=== PATIENT | female | born 1970 | race Caucasian/White ===

== ENCOUNTER 2022-06-19 21:19 | Emergency (ER) | payer OTHER, SELFPAY ==
--- NOTE | ~2022-06-19 | CT_ITS ---
Non-contrast Head CT History: Status post fall Technique: Axial non-contrast imaging of the brain was performed. Dose reduction technique was used on this scan by utilizing automated exposure control and iterative reconstruction technique. The dose -length product (DLP) was 605.33 mGy-cm. Findings: There is no evidence of intracranial hemorrhage, mass lesion, or acute infarct. Brain par enchyma appears normal. The ventricles and subarachnoid spaces are normal in size. The calvarium ap pears normal. The visualized paranasal sinuses and mastoid air cells are clear. Impression: No significant abnormality seen. Reviewed, dictated and finalized at location . Impression: No significant abnormality seen.
--- NOTE | ~2022-06-19 | CT_ITS ---
Noncontrast CT scan of the cervical spine Technique: Multiple contiguous axial [address] images of the cervical spine were obtained and rec onstructed in 2D sagittal and coronal planes on the acquisition scanner. Dose reduction technique was used on this scan by utilizing automated exposure control, adjustment of the mA and/or kV according to patient size. Clinical History: Pain Findings: No fractures or dislocations. There is moderate degenerative disc narrowing at C5-C6. No p revertebral soft tissue swelling. Impression: No fracture or subluxation of the cervical spine. Moderate degenerative disc narrowing at C5-C6. Reviewed, dictated and finalized at location . Impression: No fracture or subluxation of the cervical spine. Moderate degenerative disc narrowing at C5-C6.
[2022-06-19 21:23] VITALS: BP 116/78; PULSE 76; RESP 16; TEMP 36.3; O2SAT 95
--- NOTE | 2022-06-19 21:29 | ECG_ITS ---
Measurements Intervals [place] Rate: 70 P: 25 [place]: 159 QRS: 47 QRSD: 134 T: 13 QT: 402 QTc: 435 Interpretive Statements SINUS RHYTHM INTRAVENTRICULAR CONDUCTION DELAY [130+ ms QRS DURATION] ABNORMAL ECG NO PREVIOUS ECG AVAILABLE FOR COMPARISON Electronically Signed On 06-20-2022 10:36:48 CDT by Homer Valles M.D.
[2022-06-19 21:55] LABS: Basophils Percent Auto 0.3 % (0.2-1.2); Eosinophils Absolute Auto 0.1 K/mm3 (0-0.3); Eosinophils Percent Auto 1.2 % (0-4.4); Hematocrit 41.4 % (37.0-47.0); Hemoglobin 13.7 g/dL (12.0-15.0); Immature Granulocyte Absolute 0.06 K/mm3 (0.00-0.031); Immature Granulocyte Percent A 0.5 % (0-0.5); Lymphocytes Absolute Auto 1.73 K/mm3 (0.9-3.2); Lymphocytes Percent Auto 14.5 % (18.3-44.2); Mean Corpuscular HGB Conc 33.1 g/dl (32-36); Mean Corpuscular Hemoglobin 29.5 pg (26-34); Mean Platelet Volume 11.2 fl (7.4-10.4); Monocytes Absolute Auto 0.7 K/mm3 (0.1-0.6); Monocytes Percent Auto 5.7 % (2.6-8.5); Neutrophils Absolute Auto 9.3 K/mm3 (1.3-6.7); Neutrophils Percent Auto 77.8 % (45.5-73.1); Platelet Count Result 211 k/mm3 (150-375); Red Blood Count 4.65 M/mm3 (4.2-5.4); Red Cell Distribution Width 14.3 % (11.5-14.5)
[2022-06-19 22:04] LABS: Alanine Aminotransferase 26 U/L (6-35); Albumin Level 4.3 g/dL (3.5-5.1); Alkaline Phosphatase 112 U/L (38-126); Anion Gap 6 mmol/L (8-16); Aspartate Amino Transferase 36 U/L (14-36); Bilirubin,Total 0.4 mg/dL (0.2-1.3); Blood Urea Nitrogen 8 mg/dL (7-17); Calcium 8.9 mg/dL (8.4-10.2); Carbon Dioxide 28 mmol/L (22-30); Chloride 103 mmol/L (98-107); Estimated CRCL calculation 77 ml/min; Estimated Glomerular Filt Rate > 60; Glucose 109 mg/dL (65-110); Potassium 3.9 mmol/L (3.4-5.0); Sodium 137 mmol/L (137-145)
[2022-06-19 22:30] VITALS: BP 90/76
[2022-06-19] MEDS: PROCHLORPERAZINE EDISYLATE 10 MG/2 ML VIAL IV PUSH (22:38)
[2022-06-19] MEDS: ACETAMINOPHEN 500 MG TABLET 1000 MG PO (22:40)
[2022-06-19] MEDS: diphenhydrAMINE HCl INJ 50 MG/ML VIAL 25 MG IV PUSH (22:40)
[2022-06-19] MEDS: SODIUM CHLORIDE 0.9% IV 2,000 ML 999 ML IV CONT (22:40)
[2022-06-19] MEDS: ONDANSETRON INJ 4 MG/2 ML VIAL IV PUSH (22:40)
--- NOTE | 2022-06-19 22:43 | ED.GENADULT ---
HPI - General Adult General Chief complaint: Head Injury Stated complaint: head injury Time Seen by Provider: 06/19/22 21:35 History of Present Illness HPI narrative: This is a 52-year-old female presenting ED with chief complaint of syncope. Patient says that she had been laying down watching TV. She then got up and felt lightheaded. She leaned against the wall and then remembers waking up on the floor. Since then the patient has had a headache. She has had multiple episodes of nausea and vomiting. She denies numbness tingling or weakness to any extremities. Patient told her friend that this felt similar to when she got a steroid shot in the past and then felt lightheaded and dizzy. Related Data Allergies Allergy/AdvReac Type Severity Reaction Status Date / Time levofloxacin [From Levaquin] Allergy Unknown Verified 06/19/22 21:21 morphine AdvReac Unknown makes her Verified 06/19/22 21:21 feel weird tetracycline AdvReac Unknown stomach Verified 06/19/22 21:21 pains PMFSH Past Medical History Medical History Anxiety Chronic pain Depression GERD (gastroesophageal reflux disease) HTN (hypertension) Social History Social History Social History: Patient has occasional alcohol use, daily marijuana use and has access to gabapentin and norco at home Exam Narrative: APPEARANCE: No apparent distress. Head: 2 cm laceration to the back of the scalp EYES: EOMI, pupils are 2 mm and reactive NOSE: Atraumatic NECK: Trachea midline RESPIRATORY: No increased rate of breathing CARDIOVASCULAR: RRR, ABDOMINAL: Non-distended MUSCULOSKELETAl: No obvious deformities NEURO: Alert. Cranial nerves 2-12 grossly intact. Sensation light touch, motor function cerebellar function intact for 4 extremities. Gait exam was normal. SKIN:: Warm, dry. Normal color PSYCHIATRIC: Normal affect Course Vital Signs Vital signs: Vital Signs Temperature 97.3 F L 06/19/22 21:23 Pulse Rate 76 06/19/22 21:23 Respiratory Rate 16 06/19/22 21:23 Blood Pressure 116/78 06/19/22 21:23 Pulse Oximetry 95 06/19/22 21:23 Oxygen Delivery Room Air 06/19/22 21:23 Temperature 97.3 F L 06/19/22 21:23 Pulse Rate 61 06/19/22 23:39 Respiratory Rate 13 06/19/22 23:39 Blood Pressure 102/73 06/19/22 23:39 Pulse Oximetry 100 06/19/22 23:39 Oxygen Delivery Room Air 06/19/22 21:23 Procedures Laceration Laceration 1: Date: 06/20/22 Site: scalp Side (If applicable): right Size (cm): 2 Description: linear Pre-repair: irrigated ====== Skin Level ====== Skin layer closed with: lauryn ====== Subcutaneous Layer ====== ====== Muscle Layer ====== ====== Tendon Layer ====== Medical Decision Making MDM Narrative Medical decision making narrative: -Presentation: 52-year-old female presenting with syncope and head trauma. 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 Metabolic panel is unremarkable. Independent EKG interpretation: Rhythm [sinus], Rate [70], [place] -[normal], [place] -[normal], QRS [narrow], QTC [normal], T waves -[negative for concerning inversions], ST Segments - [Negative for concerning elevations] Final interpretations: Normal sinus rhythm with intraventricular conduction delay CT head and C-spine were negative for acute injury Dx tests considered but not ordered: -Procedures: 2 cm laceration repair
[2022-06-19 22:45] VITALS: BP 110/80; BP 93/76; PULSE 53; PULSE 95
[2022-06-19] MEDS: LIDOCAINE, EPINEPHRINE, TETRACAINE VISCOUS SOLN 3 ML TOPICAL (22:49)
[2022-06-19 23:39] VITALS: BP 102/73; PULSE 61; RESP 13; O2SAT 100
[2022-06-20] MEDS: TETANUS,DIPHTHERIA,AC PERTUSSIS ADULT (0.5 ML) BOOSTRIX IM (00:12)
--- NOTE | 2022-06-20 00:16 | PC.NURSE ---
CT negative. C collar removed at this time
[2022-06-20 00:30] VITALS: BP 112/75; PULSE 60; RESP 12; O2SAT 95
== END 2022-06-20 00:31 | disposition home or self-care (01) ==
PROVIDERS: Emergency Provider Emergency Medicine; PCP Family Medicine
DX: R55 Syncope and collapse (principal); S01.01XA Laceration without foreign body of scalp, initial encounter; F41.9 Anxiety disorder, unspecified; F32.A Depression, unspecified; K21.9 Gastro-esophageal reflux disease without esophagitis; I10 Essential (primary) hypertension; W19.XXXA Unspecified fall, initial encounter; Z23 Encounter for immunization
CPT/HCPCS: 12001; 36415; 70450; 72125; 80053; 83735; 85025; 90471; 90715; 93005; 96361; 96374; 96375; 99284; A9270; J0780; J1200; J2405; J7030

== ENCOUNTER 2023-06-27 23:59 | Emergency (ER) | payer OTHER, SELFPAY ==
--- NOTE | ~2023-06-27 | XR_ITS ---
Clinical Indication: Chest pressure PA and lateral views of the chest: Comparison: 08/05/2018 Findings: 9 mm possible calcified right upper lobe pulmonary nodule. Lungs are otherwise clear. Card iomediastinal silhouette is within normal limits. Neurostimulator device present. Bones and soft tiss ues are otherwise unremarkable. Impression: 9 mm suspected right upper lobe pulmonary nodule, possibly calcified. Chest CT recommended to further evaluate. Reviewed, dictated and finalized at location . Impression: 9 mm suspected right upper lobe pulmonary nodule, possibly calcified. Chest CT recommended to further evaluate.
[2023-06-28 00:03] VITALS: BP 122/92; PULSE 93; RESP 17; TEMP 36.4; O2SAT 100
--- NOTE | 2023-06-28 00:16 | ECG_ITS ---
SEE SCANNED COPY FOR CONFIRMED REPORT MTDD
[2023-06-28 00:34] LABS: Basophils Percent Auto 0.5 % (0.2-1.2); Eosinophils Absolute Auto 0.2 K/mm3 (0-0.3); Eosinophils Percent Auto 2.3 % (0-4.4); Hematocrit 36.2 % (37.0-47.0); Immature Granulocyte Absolute 0.04 K/mm3 (0.00-0.031); Immature Granulocyte Percent A 0.6 % (0-0.5); Lymphocytes Absolute Auto 2.32 K/mm3 (0.9-3.2); Lymphocytes Percent Auto 35.4 % (18.3-44.2); Mean Corpuscular HGB Conc 33.1 g/dl (32-36); Mean Corpuscular Hemoglobin 29.6 pg (26-34); Mean Corpuscular Volume 89.2 fl (80-100); Mean Platelet Volume 9.8 fl (7.4-10.4); Monocytes Absolute Auto 0.6 K/mm3 (0.1-0.6); Monocytes Percent Auto 8.7 % (2.6-8.5); Neutrophils Absolute Auto 3.5 K/mm3 (1.3-6.7); Neutrophils Percent Auto 52.5 % (45.5-73.1); Platelet Count Result 204 k/mm3 (150-375); Red Blood Count 4.06 M/mm3 (4.2-5.4); Red Cell Distribution Width 14.6 % (11.5-14.5); White Blood Count 6.6 K/mm3 (4.5-10.0)
[2023-06-28 00:44] LABS: Alanine Aminotransferase 22 U/L (6-35); Albumin Level 4.3 g/dL (3.5-5.1); Alkaline Phosphatase 132 U/L (38-126); Anion Gap 11 mmol/L (4-12); Aspartate Amino Transferase 35 U/L (14-36); Bilirubin,Total 0.4 mg/dL (0.2-1.3); Blood Urea Nitrogen 10 mg/dL (7-17); Calcium 9.5 mg/dL (8.4-10.2); Carbon Dioxide 22 mmol/L (22-30); Chloride 105 mmol/L (98-107); Estimated CRCL calculation 78 ml/min; Estimated Glomerular Filt Rate > 60; Glucose 95 mg/dL (65-110); Lipase 428 U/L (23-300); Potassium 3.7 mmol/L (3.4-5.0); Sodium 138 mmol/L (137-145)
[2023-06-28 00:51] LABS: INR 0.9
[2023-06-28 00:52] LABS: Partial Thromboplastin Time 31.4 Seconds (22.3-36.8)
[2023-06-28 00:55] LABS: Troponin I < 0.012 ng/mL (0.000-0.034)
[2023-06-28 01:28] VITALS: BP 110/87; PULSE 88; PULSE 89; RESP 27; O2SAT 99
[2023-06-28 02:59] VITALS: BP 126/83; PULSE 82; RESP 23; O2SAT 100
--- NOTE | 2023-06-28 02:59 | ECG_ITS ---
SEE SCANNED COPY FOR CONFIRMED REPORT MTDD
[2023-06-28] MEDS: LORazepam (*CRX) 0.5 MG TABLET PO (03:50)
[2023-06-28 04:07] VITALS: BP 126/88; PULSE 80; RESP 20; O2SAT 99
[2023-06-28 04:12] LABS: Troponin I < 0.012 ng/mL (0.000-0.034)
--- NOTE | 2023-06-28 04:13 | ED.CHESTPAIN ---
HPI - Chest Pain General Chief Complaint: Chest Pain Stated Complaint: chest pain Time Seen by Provider: 06/28/23 01:25 History of Present Illness HPI narrative: Patient is a 53-year-old female who presents to the emergency department this evening complaining of chest pain. Patient states that initially she figured that the pain is likely due to her anxiety since the rehab facility that she currently resides in did not give her her anxiety medications on time, however, patient started to have some shortness of breath and decided to come to the emergency department for further evaluation. Patient had a spinal fusion performed in April and states that she had a cardiac arrest during the surgery. Patient had a stent placed at that time and was told that 1 of her other arteries may need a stent in the future. Patient is currently denying any chest pain at this time, she does feel anxious and states that her next dose of anxiety medication is due and his rib Javier to be discharged so she can get her anxiety medication at her rehab facility. Patient states that after her cardiac arrest she was informed that she may have had stroke which is why she is currently at the rehab facility. Patient does have some residual right-sided weakness which she states is mainly in her right upper extremity. Patient still able to move her right upper extremity. She is currently on initial symptoms at this time. Related Data Home Medications Medication Instructions Recorded Confirmed acetaminophen 325 mg tablet 650 mg PO ONCE PRN headache 06/22/23 06/22/23 aspirin 81 mg capsule 81 mg PO DAILY 06/22/23 06/22/23 atorvastatin 40 mg tablet 40 mg PO HS 06/22/23 06/22/23 clopidogrel 75 mg tablet 75 mg PO DAILY 06/22/23 06/22/23 famotidine 20 mg tablet 20 mg PO DAILY 06/22/23 06/22/23 fluticasone propionate 50 1 spray intranasal BID 06/22/23 06/22/23 mcg/actuation nasal spray,suspension (Allergy Relief (fluticasone)) guaifenesin 200 mg tablet 200 mg PO Q6H PRN congestion 06/22/23 06/22/23 heparin (porcine) 5,000 unit/mL 5,000 unit subcut TID 06/22/23 06/22/23 injection syringe hydroxyzine HCl 25 mg tablet 25 mg PO Q6H PRN Anxiety 06/22/23 06/22/23 levetiracetam 500 mg tablet 500 mg PO BID 06/22/23 06/22/23 levothyroxine 100 mcg capsule 100 mcg PO DAILY 06/22/23 06/22/23 loratadine 10 mg tablet 10 mg PO DAILY 06/22/23 06/22/23 lorazepam 0.5 mg tablet 0.5 mg PO Q8H PRN breakthrough 06/22/23 06/22/23 agitation lorazepam 1 mg tablet 1 mg PO Q8H 06/22/23 06/22/23 ondansetron 4 mg disintegrating 4 mg PO Q4H PRN Nausea And Vomiting 06/22/23 06/22/23 tablet oxycodone 10 mg tablet 10 mg PO Q6H PRN moderate or 06/22/23 06/22/23 severe pain oxymetazoline 0.05 % nasal spray 1 spray intranasal BID 06/22/23 06/22/23 polyethylene glycol 3350 17 gram 17 g PO DAILY PRN constipation 06/22/23 06/22/23 oral powder packet (Miralax) quetiapine 100 mg tablet 100 mg PO BID 06/22/23 06/22/23 trazodone 50 mg tablet 50 mg PO HS 06/22/23 06/22/23 Allergies Allergy/AdvReac Type Severity Reaction Status Date / Time levofloxacin [From Levaquin] Allergy Unknown Verified 06/28/23 01:31 morphine AdvReac Unknown makes her Verified 06/28/23 01:31 feel weird tetracycline AdvReac Unknown stomach Verified 06/28/23 01:31 pains Review of Systems Review of Systems: All systems are reviewed and are negative unless stated otherwise in the HPI. [facility] Past Medical History Medical History Acute hypoxic respiratory failure Anxiety Chronic pain Depression GERD (gastroesophageal reflux disease) HTN (hypertension) Social History Social History Social History: Patient has occasional alcohol use, daily marijuana use and has access to gabapentin and norco at home Smoking status: Former smoker Tobacco type: cigarettes and e-cigarettes/vaping Drinks p
== END 2023-06-28 04:55 ==
PROVIDERS: Emergency Provider Emergency Medicine; PCP Internal Medicine
DX: F41.9 Anxiety disorder, unspecified (principal); R07.89 Other chest pain; F32.A Depression, unspecified; K21.9 Gastro-esophageal reflux disease without esophagitis; I10 Essential (primary) hypertension
CPT/HCPCS: 36415; 71046; 80053; 83690; 84484; 85025; 85610; 85730; 93005; 99284; A9270

== ENCOUNTER 2025-02-22 12:03 | Emergency (ER) | payer MEDICAID, SELFPAY ==
--- OUTSIDE RECORDS SUMMARY | 2025-02-17 10:33 | XMS_ITS | Encounter Summary ---
Author Organization [facility] Address [facility] [place] [address] Care Team Providers Care Wood Cabinetmaker Name Role Phone Homer Alcala MD Primary Care Provider Reason for Referral * (Routine) - Authorized Specialty Diagnoses / Procedures Referred By Harvey gibbs Referred To Contact Procedures [place] [id number] [address] Phone: tel: fax: Ayala Weaver, DOLL MAKER-[address] [address] Phone: tel: fax: Referral ID Status Reason Start Date Expiration Date V isits Requested Visits Authorized [id number] Authorized 02/21/2025 02/21/2026 1 1 [employer]ATER [employer]AT[employer]ANT INSTRUCTOR Reason for Visit * Auth/Cert Specialty Diagnoses / Procedures Referred By Harvey gibbs Referred To Contact Diagnoses SEIZURE EMU Referral ID Status Reason Start Date Expiration Date Visits Re quested Visits Authorized [id number] 1 1 Encounter Details Date Type Department Care Team (Latest Contact Info) Description 02/17/2025 10:33 AM WASTEWATER TREATMENT PLANT INSTRUCTOR - 02/21/2025 1:04 PM WASTEWATER TREATMENT PLANT INSTRUCTOR Hospital Encounter [facility] 7S TELE/NEURO [address] [place] [address] [place] [id number] [place] [facility] [place] [address] [place] [address] [place] [address] Hospitalist Discharge Disposition: Home or Self Care Social History Tobacco Use Types Packs/Day Years Used Date Smoking Tobacco: Former Cigarettes 0 Q uit: 12/04/2022 Passive Smoke Exposure: Never Smokeless Tobacco: Never Alcohol Use Standard Drinks/Week Comments Not Currently 0 (1 standard drink = 0.6 oz pur e alcohol) AUDIT-C Answer Date Recorded Q1: How often do you have a drink containing alc ohol? Never 07/18/2023 Average Number of Drinks Not on file 024 Frequency of Binge Drinking Not on file 07/04 PHQ-2 Answer Date Recorded Patient Health Questionnaire-2 Score 0 01/24/2025 Humiliation, Afraid, Rape, and Kick questionnair e Answer Date Recorded Within the last year, have y ou been afraid of your partner or ex-partner? Patient declined 02/17/2025 Within the last year, have y ou been humiliated or emotionally abused in other ways by your partner or ex-partner? Patient declined 02/17/2025 Within the last year, have y ou been kicked, hit, slapped, or otherwise physically hurt by your partner or ex-partner? Patient declined 02/17/2025 Within the last year, have y ou been raped or forced to have any kind of sexual activity by your partner or ex-partner? Patient declined 02/17/2025 [facility] [place] [facility] - Occupational Stress Questionnaire Answer Date Recorded Do you feel stress - tense, restless, nervous, or anxious, or unable to sleep at night because your mind is troubled all the time - these days? Patient declined 02/17/2025 Hunger Vital Sign Answer Date Recorded Within the past 12 months, y ou worried that your food would run out before you got the money to buy more. Patient declined Within the past 12 months, t he food you bought just didn't last and you didn't have money to get more. Patient declined PRAPARE - Transportation Answer Date Re corded In the past 12 months, has l ack of transportation kept you from medical appointments or from getting medications? Patient declined 02/17/2025 In the past 12 months, has l ack of transportation kept you from meetings, work, or from getting things needed for daily living? Patient declined 02/17/2025 Housing Stability Vital Sign Answer Yuan e Recorded In the last 12 months, was t here a time when you were not able to pay the mortgage or rent on time? Patient declined 02/18/20 25 Number of Times Moved in the Last Year Not on fi le 02/17/2025 At any time in the past 12 m [facility], were you homeless or living in a long-term (including now)? Patient declined 02/17/2025 [facility] Utilities Answer Date Recorded In the past 12 months has th e electric, gas, oil, or water company threatened to shut off services in your home? 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 Not on file Not on file Not on file documented as of this encounter Last Filed Vital Signs Vital Sign Reading Time Taken Comments Blood Pressure 144/87 02/21/2025 8:24 AM WASTEWATER TREATMENT PLANT INSTRUCTOR Pulse 70 02/21/2025 8:24 AM WASTEWATER TREATMENT PLANT INSTRUCTOR Temperature 37.2 C (99 F) 02/21/2025 8:24 AM WASTEWATER TREATMENT PLANT INSTRUCTOR Respiratory Rate 20 02/21/2025 8:24 AM WASTEWATER TREATMENT PLANT INSTRUCTOR Oxygen Saturation 95% 02/21/2025 8:24 AM WASTEWATER TREATMENT PLANT INSTRUCTOR Inhaled Oxygen Concentration - - Weight - - Height - - Body Mass Index - - documented in this encounter Functional Status * Functional and Cognitive Status Question Answer Date of Assessment Author Is person deaf or have katarzyna us hearing difficulty? No 02/17/2025 5:50 PM Clau Holguin Ma, RN Is person blind or have serious difficulty seeing? No 02/17/2025 5:50 PM WASTEWATER TREATMENT PLANT INSTRUCTOR Breezy Gonsalez RN Does person have serious difficulty walking/climbing stairs? No 02/17/2025 5:50 PM Clau Holguin Ma, RN Does person have difficulty dressing/bathing? No 02/17/2025 5:50 PM Clau Holguin Ma, RN Does person have difficulty doing errands alone? No 02/17/2025 5:50 PM Clau Holguin RN Does person have difficulty concentrating/remembering/ricky ng decisions? No 02/17/2025 5:50 PM Clau Holguin Ma, RN * Is person deaf or have serious hearing difficulty? Answer Date of Assessment Author No 02/17/2025 5:50 PM Maik Holguin RN * Is person blind or have serious difficulty seeing? Answer Date of Assessment Author No 02/17/2025 5:50 PM Maik Holguin RN * Does person have serious difficulty walking/climbing stairs? Answer Date of Assessment Author No 02/17/2025 5:50 PM Maik Holguin RN * Does person have difficulty dressing/bathing? Answer Date of Assessment Author No 02/17/2025 5:50 PM Maik Holguin RN * Does person have difficulty doing errands alone? Answer Date of Assessment Author No 02/17/2025 5:50 PM Maik Holguin RN * Foster Suicide Severity Rating Scale Question Answer Date of Assessment Author In the past 30 days, have yo u wished you were or wished you could go to sleep and not wake up? No 02/17/2025 5:50 PM Clau Holguin Ma, RN In the past 30 days, have yo u actually had any thoughts about killing yourself? No 02/17/2025 5:50 PM Matty Holguin RN documented as of this encounter Mental Status * Does person have difficulty concentrating/remembering/making decisions? Answer Entry Date Author No 02/17/2025 5:50 PM Maik Holguin RN documented in this encounter Discharge Summaries * Christine Sykes, GAB[employer]EL-ROAD FREIGHT CONDUCTOR - 02/21/2025 9:09 AM CST Images from the original note were not included. EPILEPSY MONITORING UNIT Physician Discharge Summary Patient Name: Lisseth Gutierrez Date of : 1970 Admit date: 02/17/2025 Discharge date: 02/21/2025 Admitting Physician: Tato Guzman MD Attending Physician: Aaron Roman MD Discharge Physician: Please review the admission H&P for further details. Admission Diagnosis: Intractable seizures Discharge Diagnoses Seizures of left frontal temporal onset Diagnostic Studies EEG: Abnormal video EEG monitoring record demonstrating left frontal temporal slowing which is semirhythmic at times, along with underlying infrequent left frontal temporal epileptiform discharges. 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 Treatment Plan: Continue Keppra - defer to outpatient neurologist for medication adjustments. Patient Education: Seizure precautions: -- It is [place] state law that a person cannot drive for 6 months following any spell with alteration in consciousness. You had a spell with an alteration in consciousness so it is state law that you cannot drive for 6 months. -- Avoid activities in which you or someone else could be seriously hurt if you were to have an alteration in consciousness while doing the activity. For example, avoid cooking over an open flame, holding a baby while standing, climbing ladders, taking baths unattended (choose showers instead), swimming unsupervised, or any other activity in which a sudden alteration in consciousness can lead to serious harm. -- It is important to not miss any doses of your medication. Make sure to go to bed and wake up on a regular schedule, poor sleep can lead to another seizure. -- If you have 2 seizures [id number] without returning to baseline in between, a seizure lasting longer than 5 minutes, have a second seizure that happens within 24 hours of your first, cannot be woken after your seizure, have more than 1 seizure before you are full awake or aware, are injured during a seizure, or have a seizure with concerns for difficulty breathing, then please call or have someone call 911 and come to the emergency department immediately. Patient advised to return to the ER with any new neurological symptoms Condition at discharge: good Disposition: Home Code Status At Discharge Full Code Patient Instructions Medication List CONTINUE taking these medications albuterol HFA 108 (90 Base) MCG/ACT inhaler Commonly known as: Proventil; Ventolin; Proair INHALE TWO (2) (TWO) PUFFS BY MOUTH EVERY SIX (6) HOURS NEEDED albuterol-ipratropium 0.5-2.5 (3) MG/3ML nebulizer solution Commonly known as: Duo-Neb aspirin 81 MG chew tablet Commonly known as: Aspirin atorvastatin 40 MG tablet Commonly known as: Lipitor bisacodyl EC 5 MG tablet Commonly known as: Dulcolax Take 4 tablets orally at noon 2 days before your colonoscopy. Take 4 tablets orally at noon the daybefore your colonoscopy budesonide 0.5 MG/2ML nebulizer suspension Commonly known as: Pulmicort Mix one vial in 90-120 cc of salt water. Irrigate half into each nostril two times / day buprenorphine 10 MCG/HR patch Commonly known as: Butrans cetirizine 10 MG tablet Commonly known as: ZyrTEC Take 1 (one) tablet by mouth at bedtime citalopram 10 MG tablet Commonly known as: CeleXA clonazePAM 0.5 MG tablet Commonly known as: KlonoPIN clopidogrel 75 MG tablet Commonly known as: plaVIX cyclobenzaprine 10 MG tablet Commonly known as: Flexeril dexAMETHasone 4 MG tablet Commonly known as: Decadron guaiFENesin ER 12hr 600 MG tablet Commonly known as: Mucinex Take 2 (two) tablets by mouth every 12 hours hydrOXYzine HCl 50 MG tablet Commonly known as: Atarax levETIRAcetam 500 MG tablet Commonly known as: Keppra levothyroxine 100 MCG tablet Commonly known as: Synthroid metoprolol succinate XL 24hr 25 MG tablet Commonly known as: Toprol XL montelukast 10 MG tablet Commonly known as: Singulair multivitamin daily tablet ondansetron (disintegrating) 4 MG tablet Commonly known as: Zofran ODT pantoprazole EC 40 MG tablet Commonly known as: Protonix polyethylene glycol solution Commonly known as: Irasema Drink half of prep solution at 5pm the night before colonoscopy. Finish the prep at 4am the day of test. * pregabalin 100 MG capsule Commonly known as: Lyrica * pregabalin 200 MG capsule Commonly known as: Lyrica traZODone 50 MG tablet Commonly known as: Desyrel TRUEplus 5-Bevel Pen [place] 31G X 8 MM needle Generic drug: insulin pen needle Trulicity 0.75 MG/0.5ML injection Generic drug: dulaglutide * This list has 2 medication(s) that are the same as other medications prescribed for you. Read thedirections carefully, and ask your doctor or other care provider to review them with you. ASK your doctor about these medications liraglutide 18 MG/3ML pen Commonly known as: Victoza Where to Get Your Medications These medications were sent to [facility] [place] [facility] [address] [place] [address] [address], [place] [address] budesonide 0.5 MG/2ML nebulizer suspension Discharge Procedure Orders Why you were hospitalized Order Specific Question Answer Comments Your discharge diagnosis is: Seizure (HCC) [] Follow up with provider Call office for appt Additional Scheduling Instructions: Readmission Risk Score: 7.7. End of Life Score: 8 Score Follow up Visit 0-18 Discharge Visit 5-10 days 19 or higher Discharge Visit within 5 days Post-Acute Care Facility Post-acute care team to determine timing of discharge visit Order Specific Question Answer Comments Follow Up Instructions for Patient: Other (See Comment) Discharge time: greater than 30 minutes. Christine Sykes APRN, PICK REMOVER-C General Neurology [facility]sc[facility] [place] [facility] #[id number] CC: Homer Alcala MD Discharge plan and summary per discharge MD listed. Please contact with any questions or concerns. Cosigned by Jr Weldon MD at 02/21/2025 12:50 PM WASTEWATER TREATMENT PLANT INSTRUCTOR EWATER TREATMENT PLANT INSTRUCTOR EWATER TREATMENT PLANT INSTRUCTOR documented in this encounter Medications at Time of Discharge albuterol HFA (Proventil; Ventolin; Proair) 108 (90 Base) MCG/ACT inhaler INHALE TWO (2) (TWO) PUFFS BY MOUTH EVERY SIX (6) HOURS NEEDED 18 g 2 10/23/2023 albuterol-iprat ropium (Duo-Neb) 0.5-2.5 (3) MG/3ML nebulizer solution Inhale 3 mL by mouth 4 times daily 08/08/2023 aspirin (Aspirin) 81 MG chew tablet Take 1 (one) tablet by mouth once daily 07/27/2023 atorvastatin (Lipitor) 40 MG tablet Take 1 (one) tablet by mouth at bedtime 05/16/2023 bisacodyl EC (Dulcolax) 5 MG tablet Take 4 tablets orally at noon 2 days before your colonoscopy. Take 4 tablets orally at noon the day before your colonoscopy 8 tablet 10/15/2024 budesonide (Pulmicort) 0.5 MG/2ML nebulizer suspension Mix one vial in 90-120 cc of salt water. Irrigate half into each nostril two times / day 120 mL 11 02/18/2025 buprenorphine (Butrans) 10 MCG/HR patch Apply 1 (one) patch to skin every 7 days (once a week) cetirizine (ZyrTEC) 10 MG tabletIndicatio ns:Chronic nasal congestion Take 1 (one) tablet by mouth at bedtime 90 tablet 1 02/08/2024 citalopram (CeleXA) 10 MG tablet Take 1 (one) tablet by mouth once daily 10/06/2023 clonazePAM (KlonoPIN) 0.5 MG tablet Take 1 (one) tablet by mouth at bedtime clopidogrel (plaVIX) 75 MG tablet Take 1 (one) tablet by mouth once daily 05/17/2023 cyclobenzaprine (FLEXERIL) 10 MG tablet Take 1 (one) tablet by mouth nightly as needed 02/15/2019 dexAMETHasone (Decadron) 4 MG tablet Take 1 (one) tablet by mouth 2 times daily 04/29/2024 dulaglutide (Trulicity) 0.75 MG/0.5ML injection Inject 0.75 (three-quarters) mg subcutaneously 11/14/2024 guaiFENesin ER 12hr (Mucinex) 600 MG tabletIndicatio ns:Chronic nasal congestion Take 2 (two) tablets by mouth every 12 hours 180 tablet 3 12/16/2024 hydrOXYzine HCl (Atarax) 50 MG tablet Take 1 (one) tablet by mouth 4 times daily as needed levETIRAcetam (Keppra) 500 MG tablet Take 1 (one) tablet by mouth 2 times daily 10/19/2023 levothyroxine (Synthroid) 100 MCG tablet Take 1 (one) tablet by mouth once daily 07/28/2023 liraglutide (Victoza) 18 MG/3ML pen Inject 1.8 mg subcutaneously once daily metoprolol succinate XL 24hr (Toprol XL) 25 MG tablet Take 1 (one) tablet by mouth once daily 07/27/2023 montelukast (Singulair) 10 MG tablet Take 1 (one) tablet by mouth at bedtime multivitamin daily tablet Take 1 (one) tablet by mouth daily with food ondansetron, disintegrating, (Zofran ODT) 4 MG tablet Take 1 (one) tablet by mouth every 8 hours as needed for nausea/vomiting 10/10/2023 pantoprazole EC (PROTONIX) 40 MG tablet Take 1 (one) tablet by mouth once daily 03/31/2020 polyethylene glycol (Golytely) solution Drink half of prep solution at 5pm the night before colonoscopy. Finish the prep at 4am the day of test. 4000 mL 10/15/2024 pregabalin (Lyrica) 100 MG capsule Take 1 (one) capsule by mouth once daily pregabalin (Lyrica) 200 MG capsule Take 1 (one) capsule by mouth at bedtime traZODone (Desyrel) 50 MG tablet Take 1 (one) tablet by mouth at bedtime 05/16/2023 TRUEplus 5-Bevel Pen [place] 31G X 8 MM needle 1 (one) Each by Injection route once daily 02/06/2024 documented as of this encounter Progress Notes * Aaron Roman MD - 02/21/2025 12:32 PM CST Images from the original note were not included. Internal Medicine Progress Note Admit Date: 02/17/2025 10:33 AM Hospital Day: 4 PCP:Homer Alcala MD Subjective Patient seen and examined at bedside with RN present. Vitally stable. No new symptoms. No concerns per RN. Completed EEG monitoring study today, and is looking forward for the Dc. ROS Negative Objective Exam General appearance: Alert, Cooperative, without distress HEENT: No deformity, non icteric conjunctiva, mucous membranes moist CVS: regular rhythm, normal S1 and S2, without audible murmurs, rubs or gallops Pulm: breath sounds normal and symmetric; no rales or wheezes GI: soft without mass, non-tender, with normal bowel sounds MSK: no clubbing, cyanosis or edema Neuro: Alert and oriented x 3 , Strength 5/5 in bilateral UE and LE , No gross focal deficits Psych: Calm, affect and mood normal Data Patient Vitals for the past 24 hrs: Temp Pulse Resp BP SpO2 02/21/25 0824 99 ??F (37.2 ??C) 70 20 144/87 95 % 02/21/25 0750 -- 65 18 -- 96 % 02/21/25 0612 98.1 ??F (36.7 ??C) 63 18 152/92 96 % 02/21/25 0026 -- 65 23 -- 95 % 02/20/25 1920 98.4 ??F (36.9 ??C) 63 20 148/90 94 % 02/20/25 1826 -- -- -- 160/98 -- 02/20/25 1600 97.1 ??F (36.2 ??C) 77 20 122/80 100 % 02/20/25 1400 98.6 ??F (37 ??C) 72 18 130/82 100 % Recent Labs Component Name 02/19/25 1102 02/17/25 1137 07/17/23 0742 07/12/23 1948 11/10/18 0000 SODIUM 141 141 - - 140 POTASSIUM 4.4 4.0 3.6 - 4.4 CHLORIDE 110* 108* - - 101 CO2 21* 24 26 - 25 BUN 12 13 9 - 16 CREATININE 0.82 0.82 0.76 - - GLUCOSE 97 74 100 - 88 CALCIUM 9.1 8.9 9.3 - 9.6 - = values in this interval not displayed. Recent Labs Component Name 02/19/25 1102 02/17/25 1137 07/17/23 0742 WBC 7.6 7.4 11.9* HGB 13.5 12.6 12.0 HCT 39.9 38.4 35.3 PLTCOUNT [phone] Labs and Imaging were reviewed by me. Remarkable Labs and Imaging are mentioned and addressed in the Assessment and Plan. MEDICATIONS FOR CURRENT ENCOUNTER: SCHEDULED MEDICATIONS: And 0.9% NaCl injection 3 mL, Intracatheter, q8h aspirin chew tablet 81 mg, Oral, QDAY atorvastatin (Lipitor) tablet 40 mg, Oral, AT BEDTIME citalopram (CeleXA) tablet 10 mg, Oral, QDAY clopidogrel (plaVIX) tablet 75 mg, Oral, QDAY guaiFENesin ER 12hr (Mucinex) tablet 600 mg, Oral, q12h levETIRAcetam (Keppra) tablet 500 mg, Oral, BID levothyroxine (Synthroid) tablet 112 mcg, Oral, QDAY metoprolol succinate XL 24hr (Toprol XL) tablet 25 mg, Oral, QDAY montelukast (Singulair) tablet 10 mg, Oral, AT BEDTIME pantoprazole EC (Protonix) tablet 40 mg, Oral, QDAY pregabalin (Lyrica) capsule 50 mg, Oral, BID scopolamine (Transderm-Scop) 1 patch, Transdermal, q72h scopolamine patch placement confirmation, Transdermal, BID traZODone (Desyrel) tablet 50 mg, Oral, AT BEDTIME Allergies Allergies[1] Assessment and Plan Seizures History of CVA Neurology is doing EEG EEG report 02/21; Abnormal video EEG monitoring record demonstrating left frontal temporal slowing which is semi rhythmic at times, along with underlying infrequent left frontal temporal epileptiform discharges. DC plan; Continue Keppra - defer to outpatient neurologist for medication adjustments. Nausea/Vomiting Reports history of fundoplication and GLP1 agonist use Improving Hx of cardiac arrest Continue DAPT Statins Hypothyroidism Continue synthroid Diabetes Mellitus Medications reviewed. Education provided about healthy lifestyle and management. BG stable Not requiring medications Hyperlipidemia Medications reviewed. Continue with atorvastatin 40 mg OD Education about lifestyle modifications provided with LDL of <70 DVT Prophylaxis with SCDs, also on DAPT Diet; Regular Discharge Planning: Treatment plan discussed with patient in detail. Medically stable to be discharged today. Signed: Aaron Roman MD 02/21/2025 12:32 PM This note was generated in part using voice recognition software. While accuracy was reviewed, there is a potential for unintentional errors in wording or spelling. [1] Allergies Allergen Reactions Levaquin [Levofloxacin] Other Leg pain Morphine Itching and Rash Tetracycline Nausea and/or Vomiting and GI Discomfort EWATER TREATMENT PLANT INSTRUCTOR * Bhargav Gasca RN - 02/21/2025 4:59 AM CST Problem: Pain/Discomfort Goal: Patient exhibits reduced pain/discomfort as evidenced by pain scores Outcome: Progressing Goal: Patient uses pharmacological and non-pharmacological pain management strategies. Outcome: Progressing Goal: Patient verbalizes acceptable level of pain relief and ability to engage in desired activity. Outcome: Progressing Problem: Fall Risk Goal: Fall risk and fall related injury risk are minimized (interventions related to the fall risk can be found in the flowsheet documentation) Outcome: Progressing EWATER TREATMENT PLANT INSTRUCTOR * Angelita Ruiz RCP - 02/21/2025 12:29 AM CST Patient not wearing home machine at this time EWATER TREATMENT PLANT INSTRUCTOR * Griselda Carter - 02/20/2025 1:57 PM CST Provocative Measures continue until discharge. sjb EWATER TREATMENT PLANT INSTRUCTOR * Aaron Roman MD - 02/20/2025 1:07 PM CST Images from the original note were not included. Internal Medicine Progress Note Admit Date: 02/17/2025 10:33 AM Hospital Day: 3 PCP:Homer Alcala MD Subjective Patient seen and examined at bedside with RN present. Vitally stable. No new symptoms. No concerns per RN. ROS Positive for nausea (improved from yesterday) Objective Exam General appearance: Alert, Cooperative, without distress HEENT: No deformity, non icteric conjunctiva, mucous membranes moist CVS: regular rhythm, normal S1 and S2, without audible murmurs, rubs or gallops Pulm: breath sounds normal and symmetric; no rales or wheezes GI: soft without mass, non-tender, with normal bowel sounds MSK: no clubbing, cyanosis or edema Neuro: Alert and oriented x 3 , Strength 5/5 in bilateral UE and LE , No gross focal deficits Psych: Calm, affect and mood normal Data Patient Vitals for the past 24 hrs: Temp Pulse Resp BP SpO2 02/20/25 1117 -- 64 22 -- 94 % 02/20/25 0921 99.7 ??F (37.6 ??C) 84 18 142/88 96 % 02/20/25 0404 97.9 ??F (36.6 ??C) 69 18 (!) 150/103 99 % 02/20/25 0000 97.9 ??F (36.6 ??C) 57 18 149/88 -- 02/19/25 2216 98.4 ??F (36.9 ??C) 65 18 124/88 97 % 02/19/25 1833 -- 61 18 -- 97 % 02/19/25 1454 98.6 ??F (37 ??C) 75 18 139/90 100 % Recent Labs Component Name 02/19/25 1102 02/17/25 1137 07/17/23 0742 07/12/23 1948 11/10/18 0000 SODIUM 141 141 - - 140 POTASSIUM 4.4 4.0 3.6 - 4.4 CHLORIDE 110* 108* - - 101 CO2 21* 24 26 - 25 BUN 12 13 9 - 16 CREATININE 0.82 0.82 0.76 - - GLUCOSE 97 74 100 - 88 CALCIUM 9.1 8.9 9.3 - 9.6 - = values in this interval not displayed. Recent Labs Component Name 02/19/25 1102 02/17/25 1137 07/17/23 0742 WBC 7.6 7.4 11.9* HGB 13.5 12.6 12.0 HCT 39.9 38.4 35.3 PLTCOUNT 253 233 231 Labs and Imaging were reviewed by me. Remarkable Labs and Imaging are mentioned and addressed in the Assessment and Plan. MEDICATIONS FOR CURRENT ENCOUNTER: SCHEDULED MEDICATIONS: And 0.9% NaCl injection 3 mL, Intracatheter, q8h aspirin chew tablet 81 mg, Oral, QDAY atorvastatin (Lipitor) tablet 40 mg, Oral, AT BEDTIME citalopram (CeleXA) tablet 10 mg, Oral, QDAY clopidogrel (plaVIX) tablet 75 mg, Oral, QDAY levothyroxine (Synthroid) tablet 112 mcg, Oral, QDAY metoprolol succinate XL 24hr (Toprol XL) tablet 25 mg, Oral, QDAY montelukast (Singulair) tablet 10 mg, Oral, AT BEDTIME pantoprazole EC (Protonix) tablet 40 mg, Oral, QDAY pregabalin (Lyrica) capsule 50 mg, Oral, BID scopolamine (Transderm-Scop) 1 patch, Transdermal, q72h scopolamine patch placement confirmation, Transdermal, BID traZODone (Desyrel) tablet 50 mg, Oral, AT BEDTIME Allergies Allergies[1] Assessment and Plan Seizures History of CVA Neurology is doing EEG EEG report 02/20; Abnormal video EEG monitoring record demonstrating left frontal temporal slowing which is semi rhythmic at times, along with underlying infrequent left frontal temporal epileptiform discharges. Ongoing EEG for spell capture. Medications held per neurology study, might resume from tonight Nausea/Vomiting Reports history of fundoplication and GLP1 agonist use QTC monitoring and anti emetics added Hx of cardiac arrest Continue DAPT Statins Hypothyroidism Continue synthroid Diabetes Mellitus Medications reviewed. Education provided about healthy lifestyle and management. BG stable Not requiring medications Hyperlipidemia Medications reviewed. Continue with atorvastatin 40 mg OD Education about lifestyle modifications provided with LDL of <70 DVT Prophylaxis with SCDs, also on DAPT Diet; Regular Discharge Planning: Treatment plan discussed with patient in detail. Based on clinical conditions and medical necessities and after reviewing PT/OT evaluation, family support, patient wishes, and discussion with multidisciplinary care team (gas well drilling manager, HEALTH CARE LIAISON, CSN, Therapy services, Pharmacy, and social human services assistants) the current recommendation for the most appropriate discharge destination at this time is : TBD. Due to medical issues in the assessment and plan, continued hospitalization will be required. The patient reasonably requires inpatient services and a stay crossing 2 midnights or greater. Signed: Aaron Roman MD 02/20/2025 1:07 PM This note was generated in part using voice recognition software. While accuracy was reviewed, there is a potential for unintentional errors in wording or spelling. [1] Allergies Allergen Reactions Levaquin [Levofloxacin] Other Leg pain Morphine Itching and Rash Tetracycline Nausea and/or Vomiting and GI Discomfort [employer] INSTRUCTOR * Christine Sykes APRN-CNP - 02/20/2025 10:13 AM CST Neurology CC: Intractable seizure Interval History: No events reported overnight. Photic stimulation in progress at time of exam. Medication list reviewed as per electronic chart Past medical, family, social history reviewed and unchanged from previously documented Review of systems unchanged from previously documented BP 142/88 (BP Location: Left arm, Patient Position: Sitting) Pulse 84 Temp 99.7 ??F (37.6 ??C) (Oral) Resp 18 SpO2 96% Medications[1] Objective: A&O x 3, no acute distress Speech fluent Follows commands Moves all extremities spontaneously CN 2-12 grossly intact Impression: Intractable seizure for diagnosis and spell clarification. Comment: EEG: Abnormal video EEG monitoring record demonstrating left frontal temporal slowing which is semirhythmic at times, along with underlying infrequent left frontal temporal epileptiform discharges. Plan: Video EEG ongoing Off AEDs - may resume tonight, will discuss with Dr. Guzman Provacative measures continue Seizure precautions Possible d/c home tomorrow Christine Sykes APRN, PICK REMOVER-C General Neurology [facility] Neurosciences [place] ASC[facility] #[id number] [1] 0.9% NaCl 3 mL Intracatheter q8h aspirin 81 mg Oral QDAY atorvastatin 40 mg Oral AT BEDTIME citalopram 10 mg Oral QDAY clopidogrel 75 mg Oral QDAY levothyroxine 112 mcg Oral QDAY metoprolol succinate XL 24hr 25 mg Oral QDAY montelukast 10 mg Oral AT BEDTIME pantoprazole EC 40 mg Oral QDAY pregabalin 50 mg Oral BID scopolamine 1 patch Transdermal q72h And scopolamine patch placement confirmation Transdermal BID traZODone 50 mg Oral AT BEDTIME Cosigned by Jr Weldon MD at 02/20/2025 12:38 PM [employer]EW[employer] INSTRUCTOR [employer]ANT INSTRUCTOR EW[employer] T[employer]ATMENT [employer]ANT INSTRUCTOR * Bhargav Gasca RN - 02/20/2025 5:20 AM CST Problem: Pain/Discomfort Goal: Patient exhibits reduced pain/discomfort as evidenced by pain scores 02/20/2025518 by Bhargav Gasca RN Outcome: Progressing 02/19/20252313 by Bhargav Gasca RN Outcome: Progressing Goal: Patient uses pharmacological and non-pharmacological pain management strategies. 02/20/2025518 by Bhargav Gasca RN Outcome: Progressing 02/19/20252313 by Bhargav Gasca RN Outcome: Progressing Goal: Patient verbalizes acceptable level of pain relief and ability to engage in desired activity. 02/20/2025518 by Bhargav Gasca RN Outcome: Progressing 02/19/20252313 by Bhargav Gasca RN Outcome: Progressing Problem: Fall Risk Goal: Fall risk and fall related injury risk are minimized (interventions related to the fall risk can be found in the flowsheet documentation) 02/20/2025518 by Bhargav Gasca RN Outcome: Progressing 02/19/20252313 by Bhargav Gasca RN Outcome: Progressing [employer] INSTRUCTOR * Bhargav Gasca RN - 02/19/2025 11:14 PM CST Problem: Pain/Discomfort Goal: Patient exhibits reduced pain/discomfort as evidenced by pain scores Outcome: Progressing Goal: Patient uses pharmacological and non-pharmacological pain management strategies. Outcome: Progressing Goal: Patient verbalizes acceptable level of pain relief and ability to engage in desired activity. Outcome: Progressing Problem: Fall Risk Goal: Fall risk and fall related injury risk are minimized (interventions related to the fall risk can be found in the flowsheet documentation) Outcome: Progressing [employer] IN[employer] * Hernan Christensen RN - 02/19/2025 1:04 PM CST Care Coordination Progress Note Expected Discharge Date: 02/21/2025 Discharge Plan: Home. Barriers: cEEG, Neurology clearance Family Support (Name and Phone): Extended Emergency Contact Information Primary Emergency Contact: Ziggy Stauffer Mobile Relation: Significant other Plug Wirer needed? No Secondary Emergency Contact: Susie Ladd [facility] Relation: Sister Transportation at Discharge: Friend (S.O.): READMISSION RISK SCORE is 7.7 at 1:04 PM 02/19/2025.: Name: Hernan Christensen RN CM [phone] [employer] INSTRUCTOR * Griselda Carter - 02/19/2025 12:58 PM CST Provocative Measures start today until discharge. Include photic stimulaiton/hyperventilation(cycling) sjb [employer] INSTRUCTOR * Aaron Roman MD - 02/19/2025 12:57 PM CST Images from the original note were not included. Internal Medicine Progress Note Admit Date: 02/17/2025 10:33 AM Hospital Day: 2 PCP:Homer Alcala MD Subjective Patient seen and examined at bedside with RN present. Vitally stable. No new symptoms. No concerns per RN. ROS Positive for nausea and decreased appetite. Objective Exam General appearance: Alert, Cooperative, without distress HEENT: No deformity, non icteric conjunctiva, mucous membranes moist CVS: regular rhythm, normal S1 and S2, without audible murmurs, rubs or gallops Pulm: breath sounds normal and symmetric; no rales or wheezes GI: soft without mass, non-tender, with normal bowel sounds MSK: no clubbing, cyanosis or edema Neuro: Alert and oriented x 3 , Strength 5/5 in bilateral UE and LE , No gross focal deficits Psych: Calm, affect and mood normal Data Patient Vitals for the past 24 hrs: Temp Pulse Resp BP SpO2 02/19/25 1126 -- 79 17 -- 99 % 02/19/25 1056 99.5 ??F (37.5 ??C) 75 18 125/94 100 % 02/19/25 0753 98.4 ??F (36.9 ??C) 74 18 122/84 100 % 02/19/25 0530 98.2 ??F (36.8 ??C) 76 19 117/83 97 % 02/19/25 0119 -- 78 18 -- 97 % 02/18/252044 98.2 ??F (36.8 ??C) 84 20 141/89 100 % 02/18/252032 -- 79 -- -- 99 % 02/18/25 1605 98.1 ??F (36.7 ??C) 77 20 128/97 100 % Recent Labs Component Name 02/19/25 1102 02/17/25 1137 07/17/23 0742 07/12/23 1948 11/10/18 0000 SODIUM 141 141 - - 140 POTASSIUM 4.4 4.0 3.6 - 4.4 CHLORIDE 110* 108* - - 101 CO2 21* 24 26 - 25 BUN 12 13 9 - 16 CREATININE 0.82 0.82 0.76 - - GLUCOSE 97 74 100 - 88 CALCIUM 9.1 8.9 9.3 - 9.6 - = values in this interval not displayed. Recent Labs Component Name 02/19/25 1102 02/17/25 1137 07/17/23 0742 WBC 7.6 7.4 11.9* HGB 13.5 12.6 12.0 HCT 39.9 38.4 35.3 PLTCOUNT [phone] Labs and Imaging were reviewed by me. Remarkable Labs and Imaging are mentioned and addressed in the Assessment and Plan. MEDICATIONS FOR CURRENT ENCOUNTER: SCHEDULED MEDICATIONS: And 0.9% NaCl injection 3 mL, Intracatheter, q8h aspirin chew tablet 81 mg, Oral, QDAY atorvastatin (Lipitor) tablet 40 mg, Oral, AT BEDTIME citalopram (CeleXA) tablet 10 mg, Oral, QDAY clopidogrel (plaVIX) tablet 75 mg, Oral, QDAY levothyroxine (Synthroid) tablet 112 mcg, Oral, QDAY metoprolol succinate XL 24hr (Toprol XL) tablet 25 mg, Oral, QDAY montelukast (Singulair) tablet 10 mg, Oral, AT BEDTIME pantoprazole EC (Protonix) tablet 40 mg, Oral, QDAY pregabalin (Lyrica) capsule 50 mg, Oral, BID scopolamine (Transderm-Scop) 1 patch, Transdermal, q72h scopolamine patch placement confirmation, Transdermal, BID traZODone (Desyrel) tablet 50 mg, Oral, AT BEDTIME [] levETIRAcetam (Keppra) tablet 250 mg, Oral, BID Allergies Allergies[1] Assessment and Plan Seizures History of CVA Neurology is doing EEG Medications per neurology Nausea/Vomiting Reports history of fundoplication and GLP1 agonist use QTC monitoring and anti emetics added Hx of cardiac arrest Continue DAPT Statins Hypothyroidism Continue synthroid Diabetes Mellitus Medications reviewed. Education provided about healthy lifestyle and management. BG stable Not requiring medications Hyperlipidemia Medications reviewed. Continue with atorvastatin 40 mg OD Education about lifestyle modifications provided with LDL of <70 DVT Prophylaxis with SCDs, also on DAPT Diet; Regular Discharge Planning: Treatment plan discussed with patient in detail. Based on clinical conditions and medical necessities and after reviewing PT/OT evaluation, family support, patient wishes, and discussion with multidisciplinary care team (gas well drilling manager, HEALTH CARE LIAISON, CSN, Therapy services, Pharmacy, and social human services assistants) the current recommendation for the most appropriate discharge destination at this time is : TBD. Due to medical issues in the assessment and plan, continued hospitalization will be required. The patient reasonably requires inpatient services and a stay crossing 2 midnights or greater. Signed: Aaron Roman MD 02/19/2025 12:57 PM This note was generated in part using voice recognition software. While accuracy was reviewed, there is a potential for unintentional errors in wording or spelling. [1] Allergies Allergen Reactions Levaquin [Levofloxacin] Other Leg pain Morphine Itching and Rash Tetracycline Nausea and/or Vomiting and GI Discomfort [employer] INSTRUCTOR * Tato Guzman MD - 02/19/2025 10:22 AM CST Neurology CC: Intractable seizure No seizures reported overnight. Still complaining of nausea. Hospitalist evaluation noted. cEEG: Left hemispheric intermittent slowing and infrequent discharges Medication list reviewed as per electronic chart Past medical, family, social history reviewed and unchanged from previously documented Review of systems unchanged from previously documented BP 122/84 (BP Location: Left arm, Patient Position: Lying) Pulse 74 Temp 98.4 ??F (36.9 ??C) (Oral) Resp 18 SpO2 100% Alert Speech slow but fluent Cranial nerves 2-12 intact Moves all extremity Impression: Intractable seizure for diagnosis and spell clarification. Plan: Off AED Lyrica low dose Continue long-term video EEG, reviewed Seizure precautions Provocative measures until discontinued Hospitalist consult appreciated EW[employer] T[employer]ATMENT [employer] INSTRUCTOR EW[employer]MENT [employer]ANT INSTRUCTOR * Zelda Resendez RN - 02/19/2025 12:04 AM CST Problem: Pain/Discomfort Goal: Patient exhibits reduced pain/discomfort as evidenced by pain scores Outcome: Progressing Goal: Patient uses pharmacological and non-pharmacological pain management strategies. Outcome: Progressing Goal: Patient verbalizes acceptable level of pain relief and ability to engage in desired activity. Outcome: Progressing Problem: Fall Risk Goal: Fall risk and fall related injury risk are minimized (interventions related to the fall risk can be found in the flowsheet documentation) Outcome: Progressing [employer] INSTRUCTOR * Stephie Oakes RCP - 02/18/2025 8:34 PM CST Pt has home cpap that she wears nightly. Pt takes herself off and on and does not need help from RT [employer]ATER [employer]ATMENT [employer]ANT INSTRUCTOR * Tato Guzman MD - 02/18/2025 10:03 AM CST Neurology CC: Intractable seizure No seizures reported overnight. Was very anxious regarding having her Lyrica discontinued. Takes for low back pain. Also has noted new onset of nausea and vomiting. Her took her diabetic medications home. cEEG: Left hemispheric intermittent slowing and disorganization Medication list reviewed as per electronic chart Past medical, family, social history reviewed and unchanged from previously documented Review of systems unchanged from previously documented BP 170/92 (BP Location: Left arm) Pulse 57 Temp 97.5 ??F (36.4 ??C) (Oral) Resp 18 SpO2 100% Alert Speech slow but fluent Cranial nerves 2-12 intact Moves all extremity Impression: Intractable seizure for diagnosis and spell clarification. New onset of nausea and vomiting, also needs alternative to home diabetic regimen while in hospital. Will consult internal medicine/hospitalist for their help. Plan: Continue AED taper Lyrica low dose Continue long-term video EEG, reviewed Seizure precautions Hospitalist consult requested [employer] INSTRUCTOR * Aaron Israel RCP - 02/18/2025 2:17 AM CST Assisted patient in home cpap/bipap set up. Patient will assume responsibility of home machine. [employer] INSTRUCTOR * Bhargav Gasca RN - 02/18/2025 1:28 AM CST Problem: Pain/Discomfort Goal: Patient exhibits reduced pain/discomfort as evidenced by pain scores 02/18/2025127 by Bhargav Gasca RN Outcome: Progressing 02/18/2025114 by Bhargav Gasca RN Outcome: Progressing Goal: Patient uses pharmacological and non-pharmacological pain management strategies. 02/18/2025127 by Bhargav Gasca RN Outcome: Progressing 02/18/2025114 by Bhargav Gasca RN Outcome: Progressing Goal: Patient verbalizes acceptable level of pain relief and ability to engage in desired activity. 02/18/2025127 by Bhargav Gasca RN Outcome: Progressing 02/18/2025114 by Bhargav Gasca RN Outcome: Progressing Problem: Pain/Discomfort Goal: Patient verbalizes acceptable level of pain relief and ability to engage in desired activity. 02/18/2025 012 by Bhargav Gasca RN Outcome: Progressing 02/18/2025114 by Bhargav Gasca RN Outcome: Progressing Problem: Fall Risk Goal: Fall risk and fall related injury risk are minimized (interventions related to the fall risk can be found in the flowsheet documentation) 02/18/2025127 by Bhargav Gasca RN Outcome: Progressing 02/18/2025114 by Ochulor, Chileme, RN Outcome: Progressing [employer] INSTRUCTOR * Bhargav Gasca, DIONICIO - 02/18/2025 1:15 AM CST Problem: Pain/Discomfort Goal: Patient exhibits reduced pain/discomfort as evidenced by pain scores Outcome: Progressing Goal: Patient uses pharmacological and non-pharmacological pain management strategies. Outcome: Progressing Goal: Patient verbalizes acceptable level of pain relief and ability to engage in desired activity. Outcome: Progressing Problem: Fall Risk Goal: Fall risk and fall related injury risk are minimized (interventions related to the fall risk can be found in the flowsheet documentation) Outcome: Progressing [employer] INSTRUCTOR * Dinora Mahajan RN - 02/17/2025 12:28 PM CST Care Coordination Initial Assessment Expected Discharge Date: 02/22/2025 Expected Discharge Disposition: Home or Self Care Transportation at Discharge: Friend (S.O.) Prior Level of Care: Home Prior to Admit Provider: Comments: 54 year old female who presented for long-term video EEG monitoring. Patient lives at home w/ S.O. patient has hand worker through (98 hours/month) that assists w/ ADLs. Plan is for patient to return home at dc w/ s.o. transporting. CM verified PCP. CM will continue to followand assist w/ dc needs. Barriers: cEEG Lives with: Spouse/Significant Other Physical Limitations: None Requires Assistance With: Shopping;Meal Preparation;Housekeeping;Hygiene Preferred Pharmacy: [facility] - [address] [place] [address] [address] [place] [address] READMISSION RISK SCORE is 5.7 at 3:48 PM 02/17/2025. Met with patient Family Support (name and phone): Extended Emergency Contact Information Primary Emergency Contact: Ziggy Stauffer Mobile Relation: Significant other Plug Wirer needed? No Secondary Emergency Contact: Susie Ladd [facility] Relation: Sister Patient or business representative requests care coordination reach out to family or caregiver listed above regarding discharge planning and at time of discharge? No Durable Medical Equipment Planning Type of Cane: Standard/Quad List DME pt. requires but does not have.: None Irrigator Sprinkling System Referral: No Will continue to follow. For any questions or needs please contact: Creative Perfumer/Social Work Name/Phone number: DIONICIO Mcelroy RN Case Manager [phone] EWATER T[employer]MENT [employer]ANT INSTRUCTOR * Clau Gonsalez RN - 02/17/2025 12:08 PM CST Pt refused SCD due to being independent in ambulation. EWATER TREATMENT PLANT INSTRUCTOR documented in this encounter H&P Notes * Tato Guzman MD - 02/17/2025 11:52 AM CST Neurology history and physical Chief Complaint: Intractable seizure versus nonepileptic etiology History of Present Illness: 54-year-old admitted for long-term video EEG monitoring for clarification of the above. She presents in follow-up from Dr. Mar. Has prior history of stroke left hemisphere affecting speech and sensation on the right side. Thereafter had a prolonged hospital course including time at [facility] before eventual discharge. Was felt to have seizures as result of her stroke and was placed on Keppra about a year ago. She now has continued to have episodes of nocturnal incontinence, confusional arousals, and also has had some involuntary shaking or movements in the right upper extremity. Overall she has been otherwise relatively stable, and therefore her regimen. Has not really been changed, but long-term video EEG monitoring was requested to further clarify if these events are epileptic or not. Past Medical History: Past Medical History[1] Medications: Medications[2] Social History: Social History[3] Family History: Family History[4] Family history is reviewed and noncontributory to the current problem. Review of Systems: Negative except per HPI General Exam: VS: BP 111/74 Pulse 70 Temp 98.6 ??F (37 ??C) (Oral) Resp 18 SpO2 99% General: Well-developed, well-nourished Neurological Exam: Mental status: Alert and oriented x 3. Recent and remote memory are normal. Attention and concentration are mildly impaired. Speech is hesitant but overall fluent and comprehension is intact. Fund of knowledge is good. CN II: Visual acuity is full without visual field cut. Pupils equal and reactive to light. CN III, IV, : Extraocular movements are full. CN VII: Normal facial strength and tone. CN VIII: Hearing is intact to confrontation. CN XI, X: Palate elevates symmetrically, uvula midline CN XI: Normal SCM and trapezius strength CN XII: Tongue midline without atrophy Motor: Strength is antigravity throughout. Mild drift on the right Bulk and tone are normal. No tremor or abnormal movement seen. Coordination: Normal. Gait and Station: Normal for age. Impression: Intractable spells, possible seizure versus other etiology for diagnosis and spell clarification. Due to the nature of testing, more than 2 midnights of admission are reasonably expected. Plan: Long-term video EEG monitoring Taper antiepileptics Seizure precautions Provocative measures to follow The total time spent today was 75 minutes performing chart prep, review of data and visit with the patient [1] Past Medical History: Diagnosis Date Disorder of liver Fibromyalgia GERD (gastroesophageal reflux disease) High blood pressure Hypothyroid IBS (irritable bowel syndrome) Lupus White matter disease, unspecified [2] No outpatient medications have been marked as taking for the 02/17/25 encounter (Hospital Encounter). 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 Tobacco Use Smoking status: Former Current packs/day: 0.00 Types: Cigarettes Quit date: 12/04/2022 Years since quittin.2 Passive exposure: Never Smokeless tobacco: Never Vaping Use Vaping status: Every Day Substance and Sexual Activity Alcohol use: Not Currently Drug use: Yes Frequency: 7.0 times per week Types: Marijuana Comment: [place] [facility] patient [4] Family History Problem Relation Name Age of Onset None Known Mother None Known Father None Known Sister None Known Brother None Known Maternal Aunt None Known Maternal Uncle None Known Paternal Aunt None Known Paternal Uncle None Known Maternal Grandmother None Known Maternal Grandfather None Known Paternal Grandmother None Known Paternal Grandfather Asthma Other Eczema Neg Hx Cancer - Other Neg Hx Cancer - Breast Neg Hx Cancer - Skin, Non Melanoma Neg Hx Cancer - Skin, Melanoma Neg Hx CVA Neg Hx Hemophilia Neg Hx Psoriasis Neg Hx EWATER TREATMENT PLANT INSTRUCTOR documented in this encounter Procedure Notes * Tato Guzman MD - 02/21/2025 7:31 AM CST LONG-TERM VIDEO EEG [facility] Long-term video EEG monitoring was performed on a patient with intractable seizure for diagnosis and localization. Utilizing the [employer] recording system, EEG was recorded in standard multichannel format, and synchronized with currently recorded EKG and video by cable telemetry. Electrode placement was as per the 10/20 system of electrode placement. The record was reviewed in its entirety, utilizing both bipolar and referential montages, as appropriate. Appropriate provocations were made. The quality of the recording is good. A total of over 20 hours was reviewed beginning at 0936 on February 17, 2025. The background consists of up to 10 hertz activity with a posterior dominant rhythm. Mild intermittent slowing is noted left temporal. The record is continuous and symmetric otherwise with good variability and reactivity. No epileptiform discharges are seen interictally although occasionally increased disorganization is noted left hemispheric. No other focal or lateralizing abnormalities are noted. Up to stage 3 sleep is noted. Sleep architecture is within normal limits. No events are noted during this period of monitoring. Automatic spike and seizure detection are unremarkable. A total of over 20 hours was reviewed beginning at 0936 on February 18, 2025. The background consists of up to 10 hertz activity with a posterior dominant rhythm. Mild intermittent slowing is noted left temporal which is semi rhythmic at times. Infrequent left sharp epileptiform discharges are now noted. No other focal or lateralizing abnormalities are noted. Up to stage 3 sleep is noted. Sleep architecture is within normal limits. No events are noted during this period of monitoring. Automatic spike and seizure detection are unremarkable. A total of over 20 hours was reviewed beginning at 0936 on February 19, 2025. The background consists of up to 10 hertz activity with a posterior dominant rhythm. Mild intermittent slowing is noted left temporal which is semi rhythmic at times. Infrequent left sharp epileptiform discharges are now noted. No other focal or lateralizing abnormalities are noted. Up to stage 3 sleep is noted. Sleep architecture is within normal limits. No events are noted during this period of monitoring. Automatic spike and seizure detection are unremarkable. A total of over 20 hours was reviewed beginning at 0936 on February 20, 2025. The background consists of up to 10 hertz activity with a posterior dominant rhythm. Mild intermittent slowing is noted left temporal which is semi rhythmic at times. Infrequent left sharp epileptiform discharges are now noted. No other focal or lateralizing abnormalities are noted. Up to stage 3 sleep is noted. Sleep architecture is within normal limits. No events are noted during this period of monitoring. Automatic spike and seizure detection are unremarkable. Impression: Abnormal video EEG monitoring record demonstrating left frontal temporal slowing which is semi rhythmic at times, along with underlying infrequent left frontal temporal epileptiform discharges. Ongoing EEG for spell capture. Clinical correlation advised. [employer]ANT INSTRUCTOR * Tato Guzman MD - 02/20/2025 10:31 AM CST LONG-TERM VIDEO EEG [facility] Long-term video EEG monitoring was performed on a patient with intractable seizure for diagnosis and localization. Utilizing the Damballa recording system, EEG was recorded in standard multichannel format, and synchronized with currently recorded EKG and video by cable telemetry. Electrode placement was as per the 10/20 system of electrode placement. The record was reviewed in its entirety, utilizing both bipolar and referential montages, as appropriate. Appropriate provocations were made. The quality of the recording is good. A total of over 20 hours was reviewed beginning at 0936 on February 17, 2025. The background consists of up to 10 hertz activity with a posterior dominant rhythm. Mild intermittent slowing is noted left temporal. The record is continuous and symmetric otherwise with good variability and reactivity. No epileptiform discharges are seen interictally although occasionally increased disorganization is noted left hemispheric. No other focal or lateralizing abnormalities are noted. Up to stage 3 sleep is noted. Sleep architecture is within normal limits. No events are noted during this period of monitoring. Automatic spike and seizure detection are unremarkable. A total of over 20 hours was reviewed beginning at 0936 on February 18, 2025. The background consists of up to 10 hertz activity with a posterior dominant rhythm. Mild intermittent slowing is noted left temporal which is semi rhythmic at times. Infrequent left sharp epileptiform discharges are now noted. No other focal or lateralizing abnormalities are noted. Up to stage 3 sleep is noted. Sleep architecture is within normal limits. No events are noted during this period of monitoring. Automatic spike and seizure detection are unremarkable. A total of over 20 hours was reviewed beginning at 0936 on February 19, 2025. The background consists of up to 10 hertz activity with a posterior dominant rhythm. Mild intermittent slowing is noted left temporal which is semi rhythmic at times. Infrequent left sharp epileptiform discharges are now noted. No other focal or lateralizing abnormalities are noted. Up to stage 3 sleep is noted. Sleep architecture is within normal limits. No events are noted during this period of monitoring. Automatic spike and seizure detection are unremarkable. Impression: Abnormal video EEG monitoring record demonstrating left frontal temporal slowing which is semi rhythmic at times, along with underlying infrequent left frontal temporal epileptiform discharges. Ongoing EEG for spell capture. Clinical correlation advised. [employer] IN[employer]CTOR * Tato Guzman MD - 02/19/2025 10:23 AM CST LONG-TERM VIDEO EEG [facility] Long-term video EEG monitoring was performed on a patient with intractable seizure for diagnosis and localization. Utilizing the Topmission/PerformLine recording system, EEG was recorded in standard multichannel format, and synchronized with currently recorded EKG and video by cable telemetry. Electrode placement was as per the 10/20 system of electrode placement. The record was reviewed in its entirety, utilizing both bipolar and referential montages, as appropriate. Appropriate provocations were made. The quality of the recording is good. A total of over 20 hours was reviewed beginning at 0936 on February 17, 2025. The background consists of up to 10 hertz activity with a posterior dominant rhythm. Mild intermittent slowing is noted left temporal. The record is continuous and symmetric otherwise with good variability and reactivity. No epileptiform discharges are seen interictally although occasionally increased disorganization is noted left hemispheric. No other focal or lateralizing abnormalities are noted. Up to stage 3 sleep is noted. Sleep architecture is within normal limits. No events are noted during this period of monitoring. Automatic spike and seizure detection are unremarkable. A total of over 20 hours was reviewed beginning at 0936 on February 18, 2025. The background consists of up to 10 hertz activity with a posterior dominant rhythm. Mild intermittent slowing is noted left temporal which is semi rhythmic at times. Infrequent left sharp epileptiform discharges are now noted. No other focal or lateralizing abnormalities are noted. Up to stage 3 sleep is noted. Sleep architecture is within normal limits. No events are noted during this period of monitoring. Automatic spike and seizure detection are unremarkable. Impression: Abnormal video EEG monitoring record demonstrating left frontal temporal slowing which is semi rhythmic at times, along with underlying infrequent left frontal temporal epileptiform discharges. Ongoing EEG for spell capture. Clinical correlation advised. [employer] IN[employer]CTOR * Tato Guzman MD - 02/18/2025 10:00 AM CST LONG-TERM VIDEO EEG [facility] Long-term video EEG monitoring was performed on a patient with intractable seizure for diagnosis and localization. Utilizing the Damballa recording system, EEG was recorded in standard multichannel format, and synchronized with currently recorded EKG and video by cable telemetry. Electrode placement was as per the 10/20 system of electrode placement. The record was reviewed in its entirety, utilizing both bipolar and referential montages, as appropriate. Appropriate provocations were made. The quality of the recording is good. A total of over 20 hours was reviewed beginning at 0936 on February 17, 2025. The background consists of up to 10 hertz activity with a posterior dominant rhythm. Mild intermittent slowing is noted left temporal. The record is continuous and symmetric otherwise with good variability and reactivity. No epileptiform discharges are seen interictally although occasionally increased disorganization is noted left hemispheric. No other focal or lateralizing abnormalities are noted. Up to stage 3 sleep is noted. Sleep architecture is within normal limits. No events are noted during this period of monitoring. Automatic spike and seizure detection are unremarkable. Impression: Abnormal video EEG monitoring record demonstrating left frontal temporal slowing and disorganization. Ongoing EEG for spell capture. Clinical correlation advised. [employer] INSTRUCTOR documented in this encounter Consult Notes * Pavan Moreau, DOLL MAKER-ROAD FREIGHT CONDUCTOR - 02/18/2025 10:46 AM CSTAssociated Order(s): IP CONSULT TO HOSPITALIST HOSPITALIST CONSULT NOTE Patient: Lisseth Gutierrez Date: 02/18/2025 female, 54 year old Admit Date: 02/17/2025 Attending: Tato Guzman MD MANJINDER: [id number] Assessment & Plan: Seizures Nausea/vomiting -history of CVA -EEG positive for seizures, neurology managing -fall precautions -added scopalamine patch for nausea -planned to reduce buprenophine patch to 7.5 but they are nonformulary DM2 -well controlled Essential HTN History of cardiac arrest HLD -resume DAPT Lupus history Chronic pain -lyrica held by neurology -Buprenorphine held Thyroid disease -resume synthroid Polypharmacy -many home meds have been held. VTE Prophylaxis: VTE Chemical Prophylaxis Orders (From admission, onward) None VTE Mechanical Prophylaxis Orders (From admission, onward) Ordered Start 02/17/25 1100 SEQUENTIAL COMPRESSION DEVICE (IMPLEMENT) CONTINUOUS Start Time: 02/17/25 1115 Order ID: [id number] Status: Sent 02/17/25 1115 Anti-Embolism Interventions: Refused REASON FOR CONSULT: I was asked to consult on this patient at the kind request of Tato Guzman MD, for medical management. HISTORY OF PRESENT ILLNESS: Problem List[1] Lisseth Gutierrez is a 54 year old female, who has a past medical history of Disorder of liver, Fibromyalgia, GERD (gastroesophageal reflux disease), High blood pressure, Hypothyroid, IBS (irritable bowel syndrome), Lupus, and White matter disease, unspecified., has a past surgical history that includes back surgery; cyst removal; hysterectomy; cardiac catherization (04/2023); and laryngoscopy (N/A, 07/18/2023). 54-year-old admitted for long-term video EEG monitoring for clarification of the above. She presents in follow-up from Dr. Mar. Has prior history of stroke left hemisphere affecting speech and sensation on the right side. Thereafter had a prolonged hospital course including time at [facility] before eventual discharge. Was felt to have seizures as result of her stroke and was placed on Keppra about a year ago. She now has continued to have episodes of nocturnal incontinence, confusional arousals, and also has had some involuntary shaking or movements in the right upper extremity. Overall she has been otherwise relatively stable, and therefore her regimen. Has not really been changed, but long-term video EEG monitoring was requested to further clarify if these events are epileptic or not. On RA. Allergy Allergies[2] Medication list Medications[3] Past Medical History Past Medical History[4] Past Surgical History[5] Social History Social History[6] Social Drivers of Health Tobacco Use: Medium Risk (02/17/2025) Patient History Smoking Tobacco Use: Former Smokeless Tobacco Use: Never Passive Exposure: Never Alcohol Use: Unknown (04/16/2024) Received from [facility] AUDIT-C Q1: How often do you have a drink containing alcohol?: Monthly or less Q2: How many drinks containing alcohol do you have on a typical day when you are drinking?: 1 or 2 Q3: How often do you have six or more drinks on one occasion?: Patient declined Food Insecurity: Patient Declined (02/17/2025) Hunger Vital Sign Worried About Running Out of Food in the Last Year: Patient declined Ran Out of Food in the Last Year: Patient declined Transportation Needs: Patient Declined (02/17/2025) PRAPARE - Transportation Lack of Transportation (Medical): Patient declined Lack of Transportation (Non-Medical): Patient declined Intimate Partner Violence: Patient Declined (02/17/2025) Humiliation, Afraid, Rape, and Kick questionnaire Fear of Current or Ex-Partner: Patient declined Emotionally Abused: Patient declined Physically Abused: Patient declined Sexually Abused: Patient declined Depression: Not at risk (01/24/2025) PHQ-2 PHQ-2 Score: 0 Housing Stability: Patient Declined (02/17/2025) Housing Stability Vital Sign Unable to Pay for Housing in the Last Year: Patient declined Number of Times Moved in the Last Year: Not on file Homeless in the Last Year: Patient declined Utilities: Patient Declined (02/17/2025) [facility] Utilities Threatened with loss of utilities: Patient declined Stress: Patient Declined (02/17/2025) [employer] [place] [facility] [employer] - Occupational Stress Questionnaire Feeling of Stress: Patient declined Financial Resource Strain: Medium Risk (12/04/2023) Received from [facility] Overall Financial Resource Strain (CARDIA) Difficulty of Paying Living Expenses: Somewhat hard Family History Family History[7] REVIEW OF SYSTEMS: General: Denies fever, no chills, no fatigue. Skin: Denies rashes. ENT: Negative. Head: Denies GAMBLE no trauma Eyes: Denies any new visual changes Respiratory: denies SOB, and cough, wheezing Cardiac: Denies CP, no edema, no palpitations GI: Denies abdominal pains. endorses nausea/vomiting. : Denies dysuria, no frequency, no hesitancy, no hematuria Neurological: Denies dizziness, no numbness/tingling, no weakness Psychological: Denies changes in mental status, no mood changes MS: Able to ambulate and move all extremities A 14 point review of systems was taken and pertinent positive as per HPI. PHYSICAL EXAMINATION: Vital 24 Hour Range Most Recent Value Temperature Temp Min: 97.3 ??F (36.3 ??C) Max: 98.6 ??F (37 ??C) 98.2 ??F (36.8 ??C) Pulse Pulse Min: 57 Max: 76 75 Respiratory Resp Min: 12 Max: 22 12 Blood Pressure BP Min: 102/68 Max: 170/92 146/92 Pulse Oximetry SpO2 Min: 99 % Max: 100 % 100 % O2 No data recorded Vital Most Recent Value First Value Weight Height BMI N/A Physical Exam: General: No acute distress, speaking in full sentences, no use of accessory muscles HEENT: Pupils equal and reactive to light and accommodation, oropharynx is clear Neck: Supple, no lymphadenopathy, no JVD Lungs: Clear to auscultation bilaterally Cardiovascular: Regular rate and rhythm with normal S1 and S2 Abdomen: Soft, nontender, nondistended, normoactive bowel sounds Extremities: No cyanosis clubbing or edema Neuro: Nonfocal, A&O x3 Psych: anxious affect Intake/Output last 3 shifts: I/O last 3 completed shifts: In: 840 [P.O.:840] Out: - Labs: Recent Labs Lab Units 02/17/25 1137 CO2 mmol/L 24 BUN mg/dL 13 Recent Labs Lab Units 02/17/25 1137 WBC x10E9/L 7.4 RBC x10E12/L 4.49 HGB g/dL 12.6 HCT % 38.4 MCV fL 85.5 MCH pg 28.1 MCHC g/dL 32.8 MPV fL 10.7 No results for input(s): INR, PTT in the last 168 hours. Invalid input(s): ABG Imagining & Other Studies Mammo Bilat Screening W Luther Result Date: 02/07/2025 RENÉ SCREENING BILATERAL DIGITAL W CAD W LUTHER EXAM DATE: 02/07/2025 11:52 AM HISTORY: 54 years year old Female. Encounter for screening mammogram for malignant neoplasm of breast TECHNIQUE: Standard bilateral mammographic views were obtained. Additional 3D tomographic mammography was also obtained. Current study was also evaluated with a Computer Aided Detection (CAD) system. COMPARISON: Comparisonmade with previous examination(s) dated (MG) 26-Jan-2024, (MG) 03-Jul-2021. FINDINGS: The breasts are heterogeneously dense, which may obscure small masses. (Category C) No suspicious masses, calcifications, architectural distortion or other findings. IMPRESSION: There is no mammographic evidence of malignancy. RECOMMENDATION: Annual screening mammography. BI-RADS 1: Negative. HANT AUTO VISUAL FIELD EXTENDED Result Date: 01/24/2025 Images from the original result were not included. Temporal defect OD, nasal defect OS Thank you Tato Guzman MD for allowing us to participate in the care of this interesting patient. We shall follow with you. Pavan Moreau, DOLL MAKER-ROAD FREIGHT CONDUCTOR 02/18/2025 10:46 AM [1] Patient Active Problem List: Arthralgia of multiple joints Arthritis of left knee Elevated liver function tests Depression Shortness of breath Melanotic macule of lip Multiple benign melanocytic nevi of upper extremity, lower extremity, and trunk Solar lentiginosis Degeneration of lumbar intervertebral disc Environmental and seasonal allergies Essential hypertension Chronic bilateral low back pain with bilateral sciatica Candidiasis of esophagus (HCC) Fibromyalgia Gastroesophageal reflux disease Generalized anxiety disorder Herpes simplex Hypothyroidism Marijuana use Mild episode of recurrent major depressive disorder Mild intermittent asthma without complication (HCC) Mixed hyperlipidemia Nausea Nicotine vapor product user Lupus (systemic lupus erythematosus) (HCC) Vitamin D deficiency Restless leg syndrome Tracheal stenosis Prediabetes BPPV (benign paroxysmal positional vertigo), right Chronic nasal congestion Muscle tension dysphonia Nasal septal perforation Intranasal synechiae Rhinitis medicamentosa Seizures (HCC) [2] Allergies Allergen Reactions Levaquin [Levofloxacin] Other Leg pain Morphine Itching and Rash Tetracycline Nausea and/or Vomiting and GI Discomfort [3] Medications Prior to Admission Medication Sig Dispense Refill albuterol HFA (Proventil; Ventolin; Proair) 108 (90 Base) MCG/ACT inhaler INHALE TWO (2) (TWO) PUFFS BY MOUTH EVERY SIX (6) HOURS NEEDED 18 g 2 albuterol-ipratropium (Duo-Neb) 0.5-2.5 (3) MG/3ML nebulizer solution Inhale 3 mL by mouth 4 times daily aspirin (Aspirin) 81 MG chew tablet Take 1 (one) tablet by mouth once daily atorvastatin (Lipitor) 40 MG tablet Take 1 (one) tablet by mouth at bedtime bisacodyl EC (Dulcolax) 5 MG tablet Take 4 tablets orally at noon 2 days before your colonoscopy. Take 4 tablets orally at noon the day before your colonoscopy 8 tablet 0 buprenorphine (Butrans) 5 MCG/HR patch Apply 1 (one) patch to skin (Patient taking differently: Apply 1 (one) patch to skin Pt was prescribed 7.5mcg) cetirizine (ZyrTEC) 10 MG tablet Take 1 (one) tablet by mouth at bedtime 90 tablet 1 citalopram (CeleXA) 10 MG tablet Take 1 (one) tablet by mouth once daily clonazePAM (KlonoPIN) 1 MG tablet Take 0.5 (one-half) tablet by mouth at bedtime Patient taking 0.5mg daily (Patient not taking: Reported on 02/17/2025) clopidogrel (plaVIX) 75 MG tablet Take 1 (one) tablet by mouth once daily cyclobenzaprine (FLEXERIL) 10 MG tablet Take 1 (one) tablet by mouth nightly as needed dexAMETHasone (Decadron) 4 MG tablet Take 1 (one) tablet by mouth 2 times daily dulaglutide (Trulicity) 0.75 MG/0.5ML injection Inject 0.75 (three-quarters) mg subcutaneously guaiFENesin ER 12hr (Mucinex) 600 MG tablet Take 2 (two) tablets by mouth every 12 hours 180 tablet3 hydrOXYzine HCl (Atarax) 50 MG tablet Take 1 (one) tablet by mouth 4 times daily as needed levETIRAcetam (Keppra) 500 MG tablet Take 1 (one) tablet by mouth 2 times daily levothyroxine (Synthroid) 100 MCG tablet Take 1 (one) tablet by mouth once daily (Patient taking differently: Take 112 mcg by mouth once daily) liraglutide (Victoza) 18 MG/3ML pen Inject 1.8 mg subcutaneously once daily (Patient not taking: Reported on 02/17/2025) metoprolol succinate XL 24hr (Toprol XL) 25 MG tablet Take 1 (one) tablet by mouth once daily montelukast (Singulair) 10 MG tablet Take 1 (one) tablet by mouth at bedtime multivitamin daily tablet Take 1 (one) tablet by mouth daily with food ondansetron, disintegrating, (Zofran ODT) 4 MG tablet Take 1 (one) tablet by mouth every 8 hours asneeded for nausea/vomiting pantoprazole EC (PROTONIX) 40 MG tablet Take 1 (one) tablet by mouth once daily polyethylene glycol (Golytely) solution Drink half of prep solution at 5pm the night before colonoscopy. Finish the prep at 4am the day of test. 4000 mL 0 pregabalin (Lyrica) 150 MG capsule Take 1 (one) capsule by mouth 2 times daily (Patient taking differently: Take 1 (one) capsule by mouth 2 times daily Patient takes 100 mg in the AM and 200 mg at HS) tirzepatide (Mounjaro) 2.5 MG/0.5ML injection Inject 2.5 (two and one-half) mg subcutaneously every7 days (once a week) (Patient not taking: Reported on 02/17/2025) traZODone (Desyrel) 50 MG tablet Take 1 (one) tablet by mouth at bedtime TRUEplus 5-[place]vel [place] 31G X 8 MM needle 1 (one) Each by Injection route once daily [4] Past Medical History: Diagnosis Date Disorder of liver Fibromyalgia GERD (gastroesophageal reflux disease) High blood pressure Hypothyroid IBS (irritable bowel syndrome) Lupus White matter disease, unspecified [5] Past Surgical History: Procedure Laterality Date Back Surgery jose c and pins Cardiac Catherization 04/2023 stent Cyst Removal Hysterectomy LARYNGOSCOPY N/A 07/18/2023 N/A; SUSPENSION MICROLARYNGOSCOPY,BRONCHOSCOPY,EXCISION OF STENOSIS,AIRWAY BALLOON DILATION, INJECTION OF STEROIDS, BILATERAL NASAL ENDOSCOPY [6] Social History Socioeconomic History Marital status: Occupational History 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 Tobacco Use Smoking status: Former Current packs/day: 0.00 Types: Cigarettes Quit date: 12/04/2022 Years since quittin.2 Passive exposure: Never Smokeless tobacco: Never Vaping Use Vaping status: Every Day Substance and Sexual Activity Alcohol use: Not Currently Drug use: Yes Frequency: 7.0 times per week Types: Marijuana Comment: [place] medical patient [7] Family History Problem Relation Name Age of Onset None Known Mother None Known Father None Known Sister None Known Brother None Known Maternal Aunt None Known Maternal Uncle None Known Paternal Aunt None Known Paternal Uncle None Known Maternal Grandmother None Known Maternal Grandfather None Known Paternal Grandmother None Known Paternal Grandfather Asthma Other Eczema Neg Hx Cancer - Other Neg Hx Cancer - Breast Neg Hx Cancer - Skin, Non Melanoma Neg Hx Cancer - Skin, Melanoma Neg Hx CVA Neg Hx Hemophilia Neg Hx Psoriasis Neg Hx Cosigned by Susie Malave MD at 02/18/2025 2:49 PM WASTEWATER [employer]ATMENT [employer]ANT INSTRUCTOR EWATER TREATMENT PLANT INSTRUCTOR EWATER T[employer]ATMENT PLANT INSTRUCTOR Associated attestation - Susie Malave MD - 02/18/2025 2:49 PM WASTEWATER TREATMENT PLANT INSTRUCTOR Physician Attestation: For this patient encounter, I reviewed the [facility] professional's documentation and agreewith history and physical and cloud operations engineer of my plan, Reviewed pts chart Went through vital signs,labs and meds D/w with AMINTA documented in this encounter Plan of Treatment Upcoming Encounters Date Type Department Care Team (Late st Contact Info) Description 03/05/2025 2:30 PM WASTEWATER TREATMENT PLANT INSTRUCTOR Office Visit [facility] - Dermatology [address] [facility] [place] [phone] Andrew Suarez MD [address] [place] [address] 3 [place] [id number] 05/30/2025 1:00 PM CDT Hospital Encounter [facility] [address] [place] [id number] Ale Parrish MD [address] [place] [address] Surgery General 05/30/2025 1:00 PM CDT - 05/30/2025 1:45 PM CDT Surgery [facility] [address] [place] [address] Ael Parrish MD [address] [place] [address] COLONOSCOPY SCREEN---PAT prior 12/15/2025 9:30 AM CDT Appointment [facility] Health Imaging Services - [place] Scan [id number] [place] [address] Antonino Ojeda MD [address] [facility] [address] [place] [phone] 12/15/2025 10:30 AM CDT Office Visit [facility] - Otolaryngology [id number] [address] Antonino Ojeda MD [address] [facility] [address] [place] [phone] Scheduled Orders Name Type Priority Associated Diagnoses Order Schedule EEG EXTENDED MONITORING > 1 HOUR Neurology Routine ONCE for 1 Occurrences starting 02/17/2025 until 02/17/2025 INITIATE RT BRONCHODILATOR PROTOCOL Respiratory Care Routine ONCE for 1 Occurrences starting 02/18/2025 until 02/18/2025 Scheduled Procedures Name Priority Associated Diagnoses Date/Ti me COLONOSCOPY SCREEN Screen for colon cancer 05/30/2025 1:00 PM CDT documented as of this encounter Goals Goal Patient Goal Type Associated Problems Recent Progress Patient-Stated? Author Medication Management General Yue Hensley, RN Note: Expected end date: ongoing Interventions: Take all medications as prescribed documented as of this encounter Procedures Procedure Name Priority Date/Time Associated Diagnosis Comments CBC W AUTO DIFFERENTIAL Routine 02/19/2025 11:02 AM W[employer]EW[employer]AT[employer] INSTRUCTOR COMPREHENSIVE METABOLIC PANEL Routine 02/19/2025 11:02 AM WASTEWATER T[employer]ATMENT [employer]ANT INSTRUCTOR EKG 12-LEAD Routine 02/19/2025 10:45 AM WASTEWATER TREATMENT PLANT INSTRUCTOR Seizures (HCC) EKG 12-LEAD Routine 02/19/2025 10:43 AM WASTEWATER [employer]REATMENT PLANT INSTRUCTOR Seizures (HCC) HOME CPAP/BIPAP FOR HOSP USE: NOCTURNAL 02 Routine 02/19/2025 12:01 AM WASTEWATER [employer]REATMENT [employer] INSTRUCTOR HOME CPAP/BIPAP FOR HOSP USE: NOCTURNAL 02 Routine 02/18/2025 2:15 AM WASTEWATER TREATMENT PLANT INSTRUCTOR CBC W AUTO DIFFERENTIAL STAT 02/17/2025 11:37 AM WASTEWATER TREATMENT PLANT INSTRUCTOR COMPREHENSIVE METABOLIC PANEL STAT 02/17/2025 11:37 AM WASTEWATER TREATMENT PLANT INSTRUCTOR documented in this encounter Results * (ABNORMAL) COMPREHENSIVE METABOLIC PANEL (02/19/2025 11:02 AM WASTEWATER [employer]REATMENT [employer]ANT INSTRUCTOR) Glucose 97 70 - 99 mg/dL 02/19/2025 11:36 AM WASTEWATER TREATMENT PLANT INSTRUCTOR [facility] Sodium 141 136 - 145 mmol/L 02/19/2025 11:36 AM WASTEWATER TREATMENT PLANT INSTRUCTOR [facility] Potassium 4.4 3.5 - 5.1 mmol/L 02/19/2025 11:36 AM WASTEWATER [employer] [facility] Chloride 110(H) 98 - 107 mmol/L 02/19/2025 11:36 AM [employer] [facility] CO2 21(L) 22 - 29 mmol/L 02/19/2025 11:36 AM [employer] [facility] Calcium 9.1 8.4 - 10.4 mg/dL 02/19/2025 11:36 AM [employer] [facility] Anion Gap 10 6 - 16 mmol/L 02/19/2025 11:36 AM [employer] [facility] BUN 12 7 - 26 mg/dL 02/19/2025 11:36 AM [employer] [facility] Creatinine 0.82 0.50 - 1.10 mg/dL 02/19/2025 11:36 AM [employer] [facility] Alkaline Phosphatase 113 40 - 150 U/L 02/19/2025 11:36 AM [facility] ALT 26 6 - 57 U/L 02/19/2025 11:36 AM [facility] AST 44 10 - 48 U/L 02/19/2025 11:36 AM [facility] Protein Total 7.6 6.4 - 8.3 gm/dL 02/19/2025 11:36 AM [facility] Albumin 4.1 3.1 - 4.5 gm/dL 02/19/2025 11:36 AM [facility] Bilirubin Total 0.4 0.2 - 1.2 mg/dL 02/19/2025 11:36 AM [facility] eGFR by CKD-EPI 84(L) >=90 mL/min/1.7 3 m2 02/19/2025 11:36 AM [facility] Comment:Estimated Glomerular Filtration Rate (eGFR) calculated using the CKD-EPI Creatinine Equation (2020), per the National Kidney Foundation and [place] [employer] recommendations. Blood BLOOD SPECIMEN / Unknown Venipuncture / Unknown 02/19/2025 11:02 AM [employer] 02/19/2025 11:13 AM [employer] us Aaron Roman MD LAB - CHEMISTRY ORDERABLES Final Result [facility] [id number] [place] [address] * CBC W AUTO DIFFERENTIAL (02/19/2025 11:02 AM [facility]) WBC 7.6 4.0 - 10.7 x10E9/L 02/19/2025 11:19 AM [facility] RBC Count 4.83 3.90 - 5.20 x10E12/L 02/19/2025 11:19 AM [facility] Hemoglobin 13.5 11.9 - 15.8 g/dL 02/19/2025 11:19 AM [facility] Hematocrit 39.9 34.8 - 46.1 % 02/19/2025 11:19 AM [facility] MCV 82.6 80.0 - 98.0 fL 02/19/2025 11:19 AM [facility] MCH 28.0 26.7 - 33.6 pg 02/19/2025 11:19 AM [facility] MCHC 33.8 31.7 - 36.3 g/dL 02/19/2025 11:19 AM [facility] RDW-CV 14.1 11.3 - 14.8 % 02/19/2025 11:19 AM [facility] Platelet Count 253 150 - 420 x10E9/L 02/19/2025 11:19 AM [facility] MPV 10.6 7.8 - 11.4 fL 02/19/2025 11:19 AM [facility] Neutrophil % 59.2 41.0 - 74.0 % 02/19/2025 11:19 AM [facility] Lymphocyte % 33.2 17.0 - 47.0 % 02/19/2025 11:19 AM [facility] Monocyte % 6.1 3.0 - 11.0 % 02/19/2025 11:19 AM [facility] Eosinophil % 0.9 0.0 - 7.0 % 02/19/2025 11:19 AM [facility] Basophil % 0.3 0.0 - 1.6 % 02/19/2025 11:19 AM [facility] Immature Granulocytes % 0.3 0.0 - 1.0 % 02/19/2025 11:19 AM [facility] Neutrophil Absolute 4.50 1.60 - 7.50 x10E9/L 02/19/2025 11:19 AM [facility] Lymphocyte Absolute 2.52 1.00 - 4.40 x10E9/L 02/19/2025 11:19 AM [facility] Monocyte Absolute 0.46 0.15 - 1.00 x10E9/L 02/19/2025 11:19 AM [facility] Eosinophil Absolute 0.07 0.00 - 0.60 x10E9/L 02/19/2025 11:19 AM [facility] Basophil Absolute 0.02 0.00 - 0.13 x10E9/L 02/19/2025 11:19 AM [facility] Blood BLOOD SPECIMEN / Unknown Venipuncture / Unknown 02/19/2025 11:02 AM [employer] 02/19/2025 11:13 AM [employer] Aaron Roman MD LAB - HEMATOLOGY ORDERABLES Estrellita l Result Performing Organization Address City/[facility]/ZIP Co de Phone Number [facility] [id number] [place] [address] * EKG 12-LEAD (02/19/2025 10:45 AM [employer]) Ventricular Rate 67 BPM [facility] Atrial Rate 67 BPM [facility] P-R Interval 170 ms [facility] QRS Duration ms 132 ms [facility] Q-T Interval ms 458 ms [facility] QTC Calculation (Bezet) 483 ms [facility] Calculated P [place] 40 degrees [facility] Calculated R [place] 59 degrees [facility] Calculated T [place] 24 degrees [facility] Interpretation EKG Normal sinus rhythm Non-specific intra-ventricu lar conduction block When compared with ECG of 19-FEB-2025 10:43, No significant change was found Confirmed by CHIKI ROSALES MD ([id number]) on 02/21/2025 8:15:47 AM [facility] 02/19/2025 10:4 5 AM [employer] 02/21/2025 8:15 AM [employer] Tato Guzman MD ECG ORDERABLES Edited Resul t - Final Performing Organization Address [facility] Co de Phone Number [facility] * EKG 12-LEAD (02/19/2025 10:43 AM [employer]) Ventricular Rate 66 BPM [facility] Atrial Rate 66 BPM [facility] P-R Interval 184 ms [facility] QRS Duration ms 120 ms [facility] Q-T Interval ms 458 ms [facility] QTC Calculation (Bezet) 480 ms [facility] Calculated P [place] 37 degrees [facility] Calculated R [place] 63 degrees [facility] Calculated T [place] 46 degrees [facility] Interpretation EKG Critical Test Result: STEMI AGE AND GENDER SPECIFIC ECG ANALYSIS Normal sinus rhythm Non-specific intra-ventric ular conduction delay ST elevation consider inferior injury or acute infarct ACUTE [place] / STEMI Abnormal ECG No previous ECGs available Confirmed by CHIKI ROSALES MD ([id number]) on 02/21/2025 8:16:00 AM [facility] 02/19/2025 10:4 3 AM [employer] 02/21/2025 8:16 AM [employer] us Aaron Roman MD ECG ORDERABLES Edited Result - Final [facility] * (ABNORMAL) COMPREHENSIVE METABOLIC PANEL (02/17/2025 11:37 AM [employer]) Glucose 74 70 - 99 mg/dL 02/17/2025 12:09 PM [facility] Sodium 141 136 - 145 mmol/L 02/17/2025 12:09 PM [facility] Potassium 4.0 3.5 - 5.1 mmol/L 02/17/2025 12:09 PM [facility] Chloride 108(H) 98 - 107 mmol/L 02/17/2025 12:09 PM [facility] CO2 24 22 - 29 mmol/L 02/17/2025 12:09 PM [facility] Calcium 8.9 8.4 - 10.4 mg/dL 02/17/2025 12:09 PM [facility] Anion Gap 9 6 - 16 mmol/L 02/17/2025 12:09 PM [facility] BUN 13 7 - 26 mg/dL 02/17/2025 12:09 PM [facility] Creatinine 0.82 0.50 - 1.10 mg/dL 02/17/2025 12:09 PM [facility] Alkaline Phosphatase 115 40 - 150 U/L 02/17/2025 12:09 PM [facility] ALT 31 6 - 57 U/L 02/17/2025 12:09 PM [facility] AST 45 10 - 48 U/L 02/17/2025 12:09 PM [facility] Protein Total 7.5 6.4 - 8.3 gm/dL 02/17/2025 12:09 PM [facility] Albumin 4.0 3.1 - 4.5 gm/dL 02/17/2025 12:09 PM [facility] Bilirubin Total 0.2 0.2 - 1.2 mg/dL 02/17/2025 12:09 PM [facility] eGFR by CKD-EPI 84(L) >=90 mL/min/1.7 3 m2 02/17/2025 12:09 PM [facility] Comment:Estimated Glomerular Filtration Rate (eGFR) calculated using the CKD-EPI Creatinine Equation (2020), per the National Kidney Foundation and [place] [employer] recommendations. Blood BLOOD SPECIMEN / Unknown Venipuncture / Unknown 02/17/2025 11:37 AM [employer] 02/17/2025 11:50 AM [employer] us Tato Guzman MD LAB - CHEMISTRY ORDERABLES F inal Result [facility] [id number] [place] [address] * (ABNORMAL) CBC W AUTO DIFFERENTIAL (02/17/2025 11:37 AM [employer]) WBC 7.4 4.0 - 10.7 x10E9/L 02/17/2025 11:53 AM [facility] RBC Count 4.49 3.90 - 5.20 x10E12/L 02/17/2025 11:53 AM [facility] Hemoglobin 12.6 11.9 - 15.8 g/dL 02/17/2025 11:53 AM [facility] Hematocrit 38.4 34.8 - 46.1 % 02/17/2025 11:53 AM [facility] MCV 85.5 80.0 - 98.0 fL 02/17/2025 11:53 AM [facility] MCH 28.1 26.7 - 33.6 pg 02/17/2025 11:53 AM [facility] MCHC 32.8 31.7 - 36.3 g/dL 02/17/2025 11:53 AM [facility] RDW-CV 14.2 11.3 - 14.8 % 02/17/2025 11:53 AM [facility] Platelet Count 233 150 - 420 x10E9/L 02/17/2025 11:53 AM [facility] MPV 10.7 7.8 - 11.4 fL 02/17/2025 11:53 AM [facility] Neutrophil % 45.0 41.0 - 74.0 % 02/17/2025 11:53 AM [facility] Lymphocyte % 39.5 17.0 - 47.0 % 02/17/2025 11:53 AM [facility] Monocyte % 7.3 3.0 - 11.0 % 02/17/2025 11:53 AM [facility] Eosinophil % 7.5(H) 0.0 - 7.0 % 02/17/2025 11:53 AM [facility] Basophil % 0.4 0.0 - 1.6 % 02/17/2025 11:53 AM [facility] Immature Granulocytes % 0.3 0.0 - 1.0 % 02/17/2025 11:53 AM [facility] Neutrophil Absolute 3.35 1.60 - 7.50 x10E9/L 02/17/2025 11:53 AM [facility] Lymphocyte Absolute 2.94 1.00 - 4.40 x10E9/L 02/17/2025 11:53 AM [facility] Monocyte Absolute 0.54 0.15 - 1.00 x10E9/L 02/17/2025 11:53 AM [facility] Eosinophil Absolute 0.56 0.00 - 0.60 x10E9/L 02/17/2025 11:53 AM [facility] Basophil Absolute 0.03 0.00 - 0.13 x10E9/L 02/17/2025 11:53 AM [facility] Blood BLOOD SPECIMEN / Unknown Venipuncture / Unknown 02/17/2025 11:37 AM [employer] 02/17/2025 11:50 AM [facility] us Tato Guzman MD LAB - HEMATOLOGY ORDERABLES Final Result [facility] [id number] [place] [address] documented in this encounter Visit Diagnoses Diagnosis Seizures (HCC)- Primary Other convulsions Seizures (HCC) Other convulsions Screen for colon cancer Special screening for malignant neoplasms, colon documented in this encounter Administered Medications Inactive Administered Medications - up to 3 most recent administrations Medication Order MAR Action Action Date Dose Rate Site 0.9% NaCl injection 1-10 mL 1-10 mL, Intracatheter, PRN, other, peripheral line flush, Starting on Mon02/17/25 at 1059, Until Mon02/21/25 at 1404, Flush peripheral IV catheter with 1-10 mL of normal saline before and after medications and prn to clear blood from the line or to verify patency. 0.9% NaCl injection 3 mL 3 mL, Intracatheter, EVERY 8 HOURS, First dose on Mon02/17/25 at 1400, Until Discontinued, Flush peripheral IV catheter with 3 mL of normal saline every 8 hours. $ Given 02/20/2025 11:14 PM [employer] 3 mL $ Given 02/20/2025 4:10 AM [employer] 3 mL $ Given 02/19/2025 9:07 PM [employer] 3 mL acetaminophen (Tylenol) tablet 650 mg 650 mg, Oral, EVERY 4 HOURS PRN, mild pain, Starting on Mon02/17/25 at 1100, Until Mon02/21/25 at 1404, Patient preference for lesser PRN pain meds may be honored when the patient requests a less strong medication, a lower dose, or a less intrusive route of administration when the lesser drug, dose and route have been ordered for the patient. This patient request must be documented in the MAR. For example, if both oral and IV options are ordered for the same pain severity, give oral first unless patient cannot tolerate oral intake. $ Given 02/20/2025 4:37 PM [employer] 650 mg $ Given 02/20/2025 9:27 AM [employer] 650 mg $ Given 02/20/2025 4:10 AM [employer] 650 mg albuterol HFA (Proventil; Ventolin; Proair) 108 (90 Base) MCG/ACT inhaler 2 puff 2 puff, Inhalation, EVERY 4 HOURS PRN, shortness of breath, wheezing, Starting on Mon02/18/25 at 1500, Until Mon02/21/25 at 1404, Shake well before using. [employer]: Send to Pharmacy for Disposal. $ Given 02/21/2025 7:49 AM [employer] 2 puffs $ Given 02/21/2025 12:26 AM [employer] 2 puffs $ Given 02/20/2025 11:16 AM [employer] 2 puffs albuterol-ipratropium (Duo-Neb) nebulizer solution 3 mL 3 mL, Inhalation, EVERY 6 HOURS PRN, shortness of breath, wheezing, Starting on Mon02/18/25 at 1247, Until Mon02/21/25 at 1404 aspirin chew tablet 81 mg 81 mg, Oral, DAILY, First dose (after last modification) on Mon02/17/25 at 2100, Until Discontinued $ Given 02/20/2025 11:13 PM [employer] 81 mg $ Given 02/19/2025 9:05 PM [employer] 81 mg $ Given 02/18/2025 8:46 PM [employer] 81 mg atorvastatin (Lipitor) tablet 40 mg 40 mg, Oral, AT BEDTIME, First dose on Mon02/17/25 at 2100, Until Discontinued $ Given 02/20/2025 11:14 PM [employer] 40 mg $ Given 02/19/2025 9:06 PM [employer] 40 mg $ Given 02/18/2025 8:46 PM [employer] 40 mg citalopram (CeleXA) tablet 10 mg 10 mg, Oral, DAILY, First dose (after last modification) on Mon02/17/25 at 2100, Until Discontinued $ Given 02/20/2025 11:14 PM [employer] 10 mg $ Given 02/19/2025 9:05 PM [employer] 10 mg $ Given 02/18/2025 8:46 PM [employer] 10 mg clopidogrel (plaVIX) tablet 75 mg 75 mg, Oral, DAILY, First dose (after last modification) on Mon02/17/25 at 2100, Until Discontinued $ Given 02/20/2025 11:14 PM [employer] 75 mg $ Given 02/19/2025 9:06 PM [employer] 75 mg $ Given 02/18/2025 8:46 PM [employer] 75 mg diphenoxylate-atropine (Lomotil) tablet 1 tablet 1 tablet, Oral, 4 TIMES DAILY PRN, diarrhea, Starting on Mon02/20/25 at 0330, Until Mon02/21/25 at 1404 $ Given 02/20/2025 4:10 AM [employer] 1 tablet guaiFENesin ER 12hr (Mucinex) tablet 600 mg 600 mg, Oral, EVERY 12 HOURS, First dose on Mon02/20/25 at 2100, Until Discontinued, Do not crush, chew, or cut in half. $ Given 02/21/2025 8:25 AM [employer] 600 mg $ Given 02/20/2025 11:13 PM [employer] 600 mg hydrOXYzine HCl (Atarax) tablet 50 mg 50 mg, Oral, 4 TIMES DAILY PRN, anxiety, Starting on Mon02/17/25 at 2057, Until Mon02/21/25 at 1404 $ Given 02/21/2025 10:24 AM [employer] 50 mg $ Given 02/20/2025 11:13 PM [employer] 50 mg $ Given 02/20/2025 4:36 PM [employer] 50 mg levETIRAcetam (Keppra) tablet 250 mg 250 mg, Oral, 2 TIMES DAILY, 3 doses, First dose on Mon02/17/25 at 1230, Last dose on Mon02/18/25 at 0900, Do not crush or chew because of TASTE only. $ Given 02/18/2025 9:21 AM [employer] 250 mg $ Given 02/17/2025 8:31 PM [employer] 250 mg levETIRAcetam (Keppra) tablet 500 mg 500 mg, Oral, 2 TIMES DAILY, First dose (after last modification) on Mon02/20/25 at 2100, Until Discontinued, Do not crush or chew because of TASTE only. $ Given 02/21/2025 8:25 AM [employer] 500 mg $ Given 02/20/2025 11:13 PM [employer] 500 mg levothyroxine (Synthroid) tablet 112 mcg 112 mcg, Oral, DAILY, First dose on Mon02/17/25 at 1230, Until Discontinued, Take in the morning on an empty stomach. Do not give within 4 hours of antacids, iron or calcium supplements. $ Given 02/21/2025 8:25 AM [employer] 112 mcg $ Given 02/20/2025 9:27 AM [employer] 112 mcg $ Given 02/19/2025 7:53 AM [employer] 112 mcg metoclopramide (Reglan) injection 10 mg 10 mg, Intravenous, EVERY 6 HOURS PRN, nausea/vomiting, Starting on Mon02/18/25 at 1053, Until Mon02/21/25 at 1404 $ Given 02/19/2025 11:14 AM [employer] 10 mg $ Given 02/18/2025 12:47 PM [employer] 10 mg metoprolol succinate XL 24hr (Toprol XL) tablet 25 mg 25 mg, Oral, DAILY, First dose (after last modification) on Mon02/17/25 at 1330, Until Discontinued, May cut in half but do not crush or chew $ Given 02/21/2025 8:25 AM [employer] 25 mg $ Given 02/20/2025 9:27 AM [employer] 25 mg $ Given 02/19/2025 7:53 AM [employer] 25 mg metoprolol succinate XL 24hr (Toprol XL) tablet 50 mg 50 mg, Oral, ONCE, 1 dose, On Mon02/17/25 at 2130, May cut in half but do not crush or chewIndications:Hypertension $ Given 02/17/2025 10:29 PM [employer] 50 mg montelukast (Singulair) tablet 10 mg 10 mg, Oral, AT BEDTIME, First dose on Mon02/17/25 at 2100, Until Discontinued $ Given 02/20/2025 11:14 PM [employer] 10 mg $ Given 02/19/2025 9:05 PM [employer] 10 mg $ Given 02/18/2025 8:46 PM [employer] 10 mg ondansetron (disintegrating) (Zofran ODT) tablet 4 mg 4 mg, Oral, EVERY 8 HOURS PRN, nausea/vomiting, Starting on Mon02/17/25 at 1100, Until Mon02/21/25 at 1404, Dissolved orally on tongue $ Given 02/20/2025 11:14 PM [employer] 4 mg $ Given 02/19/2025 9:04 PM [employer] 4 mg $ Given 02/18/2025 9:21 AM [employer] 4 mg ondansetron (Zofran) injection 4 mg 4 mg, Intravenous, EVERY 8 HOURS PRN, nausea/vomiting, Starting on Mon02/17/25 at 1100, Until Mon02/21/25 at 1404, Administer over 2 to 5 minutes. $ Given 02/20/2025 9:27 AM [employer] 4 mg $ Given 02/18/2025 5:17 AM [employer] 4 mg $ Given 02/17/2025 8:32 PM [employer] 4 mg pantoprazole EC (Protonix) tablet 40 mg 40 mg, Oral, DAILY, First dose on Mon02/17/25 at 1230, Until Discontinued, Do not crush, chew, or cut in half. $ Given 02/21/2025 8:25 AM [employer] 40 mg $ Given 02/20/2025 9:27 AM [employer] 40 mg $ Given 02/19/2025 7:53 AM [employer] 40 mg pregabalin (Lyrica) capsule 50 mg 50 mg, Oral, 2 TIMES DAILY, First dose on Mon02/18/25 at 1045, Until Discontinued $ Given 02/21/2025 8:25 AM [employer] 50 mg $ Given 02/20/2025 11:13 PM [employer] 50 mg $ Given 02/20/2025 9:27 AM [employer] 50 mg prochlorperazine (Compazine) injection 5 mg 5 mg, Intravenous, EVERY 6 HOURS PRN, nausea/vomiting, Starting on Mon02/18/25 at 0007, Until Mon02/21/25 at 1404, Max intravenous rate = 5 mg/min $ Given 02/20/2025 4:10 AM [employer] 5 mg $ Given 02/19/2025 3:43 PM [employer] 5 mg $ Given 02/18/2025 12:45 AM [employer] 5 mg scopolamine (Transderm-Scop) 1 patch 1 patch, Administer over 72 Hours, EVERY 72 HOURS, First dose on Mon02/18/25 at 1430, Until Discontinued, Apply patch behind the ear, do not cut patch, only 1 patch should be worn at a time and remove old patch before applying new patch.This patch may contain metal and is not compatible with MRI. Notify radiology of patch location upon arrival to MRI. Each patch contains 1.5 mg scopolamine base and is formulated to deliver 1 mg of scopolamine over 72 hours. $ Applied 02/18/2025 4:04 PM [employer] 1 patch Right Neck scopolamine patch placement confirmation Transdermal, 2 TIMES DAILY, First dose on Mon02/18/25 at 1400, Until Discontinued, Patient has a patch to be confirmed on transition to inpatient and 2 times daily. traZODone (Desyrel) tablet 50 mg 50 mg, Oral, AT BEDTIME, First dose on Mon02/17/25 at 2100, Until Discontinued $ Given 02/18/2025 8:46 PM [employer] 50 mg $ Given 02/17/2025 8:31 PM [employer] 50 mg documented in this encounter Active and Recently Administered Medications Times are shown in [employer]. Scheduled Medication Order 02/19/2025 02/20/2025 02/21/2025 0.9% NaCl injection 3 mL(Linked Group 1) 3 mL, Intracatheter, EVERY 8 HOURS, First dose on Mon02/17/25 at 1400, Until Discontinued, Flush peripheral IV catheter with 3 mL of normal saline every 8 hours. 0431 (Not Administered - Provider: Zelda Resendez RN - Reason: Patient Condition)1400 (Canceled Entry - Provider: Christine Vasquez, DIONICIO)210 ($ Given - Provider: Bhargav Gasca RN) 0410 ($ Given - Provider: Bhargav Gasca RN)1400 (Canceled Entry - Provider: Natalie Saenz RN)2314 ($ Given - Provider: Bhargav Gasca RN) 0657 (Canceled Entry - Provider: Bhargav Gasca RN) aspirin chew tablet 81 mg 81 mg, Oral, DAILY, First dose (after last modification) on Mon02/17/25 at 2100, Until Discontinued 2104 ($ Given - Provider: Bhargav Gasca RN) 231 ($ Given - Provider: Bhargav Gasca RN) atorvastatin (Lipitor) tablet 40 mg 40 mg, Oral, AT BEDTIME, First dose on Mon02/17/25 at 2100, Until Discontinued 2105 ($ Given - Provider: Bhargav Gasca RN) 231 ($ Given - Provider: Bhargav Gasca RN) citalopram (CeleXA) tablet 10 mg 10 mg, Oral, DAILY, First dose (after last modification) on Mon02/17/25 at 2100, Until Discontinued 2104 ($ Given - Provider: Bhargav Gasca RN) 231 ($ Given - Provider: Bhargav Gasca RN) clopidogrel (plaVIX) tablet 75 mg 75 mg, Oral, DAILY, First dose (after last modification) on Mon02/17/25 at 2100, Until Discontinued 2105 ($ Given - Provider: Bhargav Gasca RN) 231 ($ Given - Provider: Bhargav Gasca RN) guaiFENesin ER 12hr (Mucinex) tablet 600 mg 600 mg, Oral, EVERY 12 HOURS, First dose on Mon02/20/25 at 2100, Until Discontinued, Do not crush, chew, or cut in half. 2313 ($ Given - Provider: Bhargav Gasca RN) 0825 ($ Given - Provider: Dorie Jimenez RN) levETIRAcetam (Keppra) tablet 500 mg 500 mg, Oral, 2 TIMES DAILY, First dose (after last modification) on Mon02/20/25 at 2100, Until Discontinued, Do not crush or chew because of TASTE only. 2313 ($ Given - Provider: Bhargav Gasca RN) 0825 ($ Given - Provider: Dorie Jimenez, DIONICIO) levothyroxine (Synthroid) tablet 112 mcg 112 mcg, Oral, DAILY, First dose on Mon02/17/25 at 1230, Until Discontinued, Take in the morning on an empty stomach. Do not give within 4 hours of antacids, iron or calcium supplements. 0753 ($ Given - Provider: Christine Vasquez RN) 0927 ($ Given - Provider: Natalie Saenz, DIONICIO) 0825 ($ Given - Provider: Dorie Jimenez, DIONICIO) metoprolol succinate XL 24hr (Toprol XL) tablet 25 mg 25 mg, Oral, DAILY, First dose (after last modification) on Mon02/17/25 at 1330, Until Discontinued, May cut in half but do not crush or chew 0753 ($ Given - Provider: Christine Vasquez RN) 0927 ($ Given - Provider: Natalie Saenz RN) 0825 ($ Given - Provider: Dorie Jimenez, DIONICIO) montelukast (Singulair) tablet 10 mg 10 mg, Oral, AT BEDTIME, First dose on Mon02/17/25 at 2100, Until Discontinued 2104 ($ Given - Provider: Bhargav Gasca RN) 2314 ($ Given - Provider: Bhargav Gasca RN) pantoprazole EC (Protonix) tablet 40 mg 40 mg, Oral, DAILY, First dose on Mon02/17/25 at 1230, Until Discontinued, Do not crush, chew, or cut in half. 0753 ($ Given - Provider: Christine Vasquez RN) 0927 ($ Given - Provider: Natalie Saenz RN) 0825 ($ Given - Provider: Dorie Jimenez RN) pregabalin (Lyrica) capsule 50 mg 50 mg, Oral, 2 TIMES DAILY, First dose on Mon02/18/25 at 1045, Until Discontinued 075 ($ Given - Provider: Christine Vasquez RN)210 ($ Given - Provider: Bhargav Gasca RN) 0927 ($ Given - Provider: Natalie Saenz, RN)2313 ($ Given - Provider: Bhargav Gasca RN) 0825 ($ Given - Provider: Dorie Jimenez, DIONICIO) scopolamine (Transderm-Scop) 1 patch(Linked Group 2) 1 patch, Administer over 72 Hours, EVERY 72 HOURS, First dose on Mon02/18/25 at 1430, Until Discontinued, Apply patch behind the ear, do not cut patch, only 1 patch should be worn at a time and remove old patch before applying new patch.This patch may contain metal and is not compatible with MRI. Notify radiology of patch location upon arrival to MRI. Each patch contains 1.5 mg scopolamine base and is formulated to deliver 1 mg of scopolamine over 72 hours. 1304 (Due: Removed - Provider: Generic, Auto Release - Comment: Time automatically adjusted from order being discontinued) scopolamine patch placement confirmation(Linked Group 2) Transdermal, 2 TIMES DAILY, First dose on Mon02/18/25 at 1400, Until Discontinued, Patient has a patch to be confirmed on transition to inpatient and 2 times daily. 0753 (*Reviewed - Provider: Christine Vasquez RN)210 (*Reviewed - Provider: Bhargav Gasca RN) 0927 (*Reviewed - Provider: Natalie Saenz RN)231 (*Reviewed - Provider: Bhargav Gasca RN) 0824 (*Reviewed - Provider: Dorie Jimenez, DIONICIO) traZODone (Desyrel) tablet 50 mg 50 mg, Oral, AT BEDTIME, First dose on Mon02/17/25 at 2100, Until Discontinued 2108 (Not Administered - Provider: Bhargav Gasca RN - Reason: See Comments - Comment: patient is sleep deprived) 2315 (Not Administered - Provider: Bhargav Gasca RN - Reason: Other - Comment: pt is to be awake till 4am) PRN Medication Order 02/19/2025 02/20/2025 02/21/2025 0.9% NaCl injection 1-10 mL(Linked Group 1) 1-10 mL, Intracatheter, PRN, other, peripheral line flush, Starting on Mon02/17/25 at 1059, Until Mon02/21/25 at 1404, Flush peripheral IV catheter with 1-10 mL of normal saline before and after medications and prn to clear blood from the line or to verify patency. acetaminophen (Tylenol) tablet 650 mg 650 mg, Oral, EVERY 4 HOURS PRN, mild pain, Starting on Mon02/17/25 at 1100, Until Mon02/21/25 at 1404, Patient preference for lesser PRN pain meds may be honored when the patient requests a less strong medication, a lower dose, or a less intrusive route of administration when the lesser drug, dose and route have been ordered for the patient. This patient request must be documented in the MAR. For example, if both oral and IV options are ordered for the same pain severity, give oral first unless patient cannot tolerate oral intake. 1116 ($ Given - Provider: Christine Vasquez RN) 0410 ($ Given - Provider: Bhargav Gasca RN)0927 ($ Given - Provider: Natalie Saenz, RN)1637 ($ Given - Provider: Natalie Saenz, RN) albuterol HFA (Proventil; Ventolin; Proair) 108 (90 Base) MCG/ACT inhaler 2 puff 2 puff, Inhalation, EVERY 4 HOURS PRN, shortness of breath, wheezing, Starting on Mon02/18/25 at 1500, Until Mon02/21/25 at 1404, Shake well before using. WASTE DISPOSAL INSTRUCTION: Send to Pharmacy for Disposal. 0119 ($ Given - Provider: Stephie Oakes RCP)1126 ($ Given - Provider: Tiffanie Georges RCP)1833 ($ Given - Provider: Tiffanie Georges RCP) 1116 ($ Given - Provider: Dg Figueroa RCP) 0026 ($ Given - Provider: Angelita Ruiz RCP)0749 ($ Given - Provider: Alexandra Stahl RCP) albuterol-ipratropium (Duo-Neb) nebulizer solution 3 mL 3 mL, Inhalation, EVERY 6 HOURS PRN, shortness of breath, wheezing, Starting on Mon02/18/25 at 1247, Until Mon02/21/25 at 1404 diphenoxylate-atropine (Lomotil) tablet 1 tablet 1 tablet, Oral, 4 TIMES DAILY PRN, diarrhea, Starting on Mon02/20/25 at 0330, Until Mon02/21/25 at 1404 0410 ($ Given - Provider: Bhargav Gasca, DIONICIO) docusate sodium (Colace) capsule 100 mg 100 mg, Oral, 2 TIMES DAILY PRN, constipation, Starting on Mon02/17/25 at 1100, Until Mon02/21/25 at 1404 hydrOXYzine HCl (Atarax) tablet 50 mg 50 mg, Oral, 4 TIMES DAILY PRN, anxiety, Starting on Mon02/17/25 at 2057, Until Mon02/21/25 at 1404 0752 ($ Given - Provider: Christine Vasquez RN)1543 ($ Given - Provider: Christine Vasquez, DIONICIO)2106 ($ Given - Provider: Bhargav Gasca RN) 0410 ($ Given - Provider: Bhargav Gasca RN)0927 ($ Given - Provider: Natalie Saenz, DIONICIO)1636 ($ Given - Provider: Natalie Saenz, DIONICIO)2313 ($ Given - Provider: Bhargav Gasca RN) 1024 ($ Given - Provider: Dorie Jimenez RN) LORazepam (Ativan) injection 2 mg 2 mg, Intravenous, PRN, seizures, Starting on Mon02/17/25 at 1100, Until Mon02/21/25 at 1404, lorazepam (Ativan) IV when: - Generalized clonic-tonic seizure more than 3 minutes in length - Complex partial seizure lasting more than 3 minutes in length - After 3rd complex partial seizure in 24 hours. NOTIFY PHYSICIAN of seizure activity requiring use of lorazepam magnesium hydroxide (Milk Of Magnesia) suspension 30 mL 30 mL, Oral, PRN, constipation, Starting on Mon02/17/25 at 1100, Until Mon02/21/25 at 1404, Max daily dose of 60 mL per day (two doses) Shake well before using. metoclopramide (Reglan) injection 10 mg 10 mg, Intravenous, EVERY 6 HOURS PRN, nausea/vomiting, Starting on Mon02/18/25 at 1053, Until Mon02/21/25 at 1404 1114 ($ Given - Provider: Christine Vasquez RN) ondansetron (disintegrating) (Zofran ODT) tablet 4 mg(Linked Group 3) 4 mg, Oral, EVERY 8 HOURS PRN, nausea/vomiting, Starting on Mon02/17/25 at 1100, Until Mon02/21/25 at 1404, Dissolved orally on tongue 2103 ($ Given - Provider: Bhargav Gasca, DIONICIO) 09 (See Alternative - Provider: Natalie Saenz, RN)231 ($ Given - Provider: Bhargav Gasca, RN) ondansetron (Zofran) injection 4 mg(Linked Group 3) 4 mg, Intravenous, EVERY 8 HOURS PRN, nausea/vomiting, Starting on Mon02/17/25 at 1100, Until Mon02/21/25 at 1404, Administer over 2 to 5 minutes. 2103 (See Alternative - Provider: Bhargav Gasca, DIONICIO) 09 ($ Given - Provider: Natalie Saenz, DIONICIO)231 (See Alternative - Provider: Bhargav aGsca, DIONICIO) prochlorperazine (Compazine) injection 5 mg 5 mg, Intravenous, EVERY 6 HOURS PRN, nausea/vomiting, Starting on Mon02/18/25 at 0007, Until Mon02/21/25 at 1404, Max intravenous rate = 5 mg/min 1543 ($ Given - Provider: Christine Vasquez, DIONICIO) 0410 ($ Given - Provider: Bhargav Gasca, DIONICIO) Linked Groups Order Group 1: SALINE LOCK, INSERT AND MAINTAIN (CANCELED) Routine, CONTINUOUS, Starting on Mon02/17/25 at 1100, Until Specified, New collection And 0.9% NaCl injection 3 mLJump to med 3 mL, Intracatheter, EVERY 8 HOURS, First dose on Mon02/17/25 at 1400, Until Discontinued, Flush peripheral IV catheter with 3 mL of normal saline every 8 hours. And 0.9% NaCl injection 1-10 mLJump to med 1-10 mL, Intracatheter, PRN, other, peripheral line flush, Starting on Mon02/17/25 at 1059, Until Mon02/21/25 at 1404, Flush peripheral IV catheter with 1-10 mL of normal saline before and after medications and prn to clear blood from the line or to verify patency. Group 2: scopolamine (Transderm-Scop) 1 patchJump to med 1 patch, Administer over 72 Hours, EVERY 72 HOURS, First dose on Mon02/18/25 at 1430, Until Discontinued, Apply patch behind the ear, do not cut patch, only 1 patch should be worn at a time and remove old patch before applying new patch.This patch may contain metal and is not compatible with MRI. Notify radiology of patch location upon arrival to MRI. Each patch contains 1.5 mg scopolamine base and is formulated to deliver 1 mg of scopolamine over 72 hours. And scopolamine patch placement confirmationJump to med Transdermal, 2 TIMES DAILY, First dose on Mon02/18/25 at 1400, Until Discontinued, Patient has a patch to be confirmed on transition to inpatient and 2 times daily. Group 3: ondansetron (Zofran) injection 4 mgJump to med 4 mg, Intravenous, EVERY 8 HOURS PRN, nausea/vomiting, Starting on Mon02/17/25 at 1100, Until Mon02/21/25 at 1404, Administer over 2 to 5 minutes. Or ondansetron (disintegrating) (Zofran ODT) tablet 4 mgJump to med 4 mg, Oral, EVERY 8 HOURS PRN, nausea/vomiting, Starting on Mon02/17/25 at 1100, Until Mon02/21/25 at 1404, Dissolved orally on tongue documented in this encounter Care Teams Wood Cabinetmaker Relationship Specialty Start Date End Date Homer Alcala MD [address] [id number] PCP - General Family Medicine 01/08/24 documented as of this encounter
--- OUTSIDE RECORDS SUMMARY | 2025-02-22 12:11 | XMS_ITS | Clinical Summary ---
Author Organization [facility] Address [address] [place] [address] Care Team Providers Care Spout Tender Name Role Phone Damaso Vazquez MD Primary Care Provider [phone] Allergies Active Allergy Reactions Criticality Noted Date Comments Levofloxacin Hives,Other (See Comments) High 09/26/2016 Leg pain Leg pain Levofloxacin In D5w Other (See Comments) 2018 Tendon pain Morphine Itching,Other (See Comments),Rash High 12/10/2015 Reaction: Itching, , Reaction: Confusion, , Reaction: Itching, Pt previously on morphine Other Reaction(s): Mental status changes Reaction: Itching, Rash, and Confusion Tetracycline GI Intolerance,Nause a And Vomiting,Other (See Comments),Rash,Itchin g,Nausea Only High 12/10/2015 Reaction: GI problems, , Reaction: Itching, , Reaction: GI problems, Other Reaction(s): Stomach upset Medications acetaminophen (TYLENOL) 325 MG tablet 2 tablets (650 mg total) by PO/Per Tube route every 6 (six) hours as needed for headaches. 4 Active aspirin 81 MG chewable tabletIndications: Atherosclerotic Disease 1 tablet (81 mg total) by PO/Per Tube route in the morning. Indications: Disease involving Lipid Deposits in the Arteries. 4 Active atorvastatin (LIPITOR) 40 MG tablet 1 tablet (40 mg total) by PO/Per Tube route nightly. 4 Active clopidogrel (PLAVIX) 75 MG tabletIndications: Atherosclerotic Disease 1 tablet (75 mg total) by PO/Per Tube route in the morning. Indications: Disease involving Lipid Deposits in the Arteries. 4 Active famotidine (PEPCID) 20 MG tablet 1 tablet (20 mg total) by PO/Per Tube route in the morning. 4 Active fluticasone (FLONASE) 50 MCG/ACT nasal solution Administer 1 spray (50 mcg total) into each nostril in the morning and 1 spray (50 mcg total) before bedtime. 4 Active guaiFENesin 200 MG tablet 1 tablet (200 mg total) by PO/Per Tube route every 6 (six) hours as needed (congestion). 4 Active Heparin Sodium, Porcine, (heparin, porcine,) 5000 UNIT/ML injectionIndicatio ns:Deep Vein Thrombosis Prophylaxis Inject 1 mL (5,000 Units total) under the skin 3 (three) times a day Indications: Treatment to Prevent Deep Vein Thrombosis. 4 Active hydrOXYzine (ATARAX) 25 MG tablet Take 1 tablet (25 mg total) by mouth every 6 (six) hours as needed for anxiety. 4 Active levETIRAcetam (KEPPRA) 500 MG tablet 1 tablet (500 mg total) by PO/Per Tube route in the morning and 1 tablet (500 mg total) before bedtime. 4 Active levothyroxine (SYNTHROID) 100 MCG tablet 1 tablet (100 mcg total) by PO/Per Tube route Daily at 6am. 4 Active loratadine (CLARITIN) 10 MG tablet Take 1 tablet (10 mg total) by mouth in the morning. 4 Active ondansetron ODT (ZOFRAN-ODT) 4 MG disintegrating tablet Take 1 tablet (4 mg total) by mouth every 4 (four) hours as needed for nausea or vomiting. 4 Active polyethylene glycol (MIRALAX) 17 g packet 17 g by PO/Per Tube route daily as needed (constipation) . 4 Active QUEtiapine (SEROquel) 100 MG tabletIndications: mood, agitation 1 tablet (100 mg total) by PO/Per Tube route in the morning. Indications: mood, agitation. 4 Active QUEtiapine (SEROquel) 100 MG tabletIndications: mood, agitation 1 tablet (100 mg total) by PO/Per Tube route nightly Indications: mood, agitation. 4 Active traZODone (DESYREL) 50 MG tablet 1 tablet (50 mg total) by PO/Per Tube route nightly. 4 Active Active Problems Problem Noted Date Diagnosed Date Acute respiratory failure 05/16/2023 Immunizations Immunization Administration Dates Next Due Pfizer SARS-CoV-2 Vaccination 06/16/2023 (Deferred: Not available - Per patient sister; patient had covid vaccine and complete) Social History Tobacco Use Types Packs/Day Years Used Date Smoking Tobacco: Unknown Tobacco Cessation:Counseling Given: Not Answered Alcohol Use Standard Drinks/Week Comments Defer 0 (1 standard drink = 0.6 oz pur e alcohol) [facility] [place] [facility] - Occupational Stress Questionnaire Answer Date Recorded Do you feel stress - tense, restless, nervous, or anxious, or unable to sleep at night because your mind is troubled all the time - these days? Rather much 06/22/2023 Domestic Abuse Assessment Answer Date R ecorded Do you feel safe in your relationships at home? Yes 06/15/2023 Physical Abuse Denies 06/15/2023 HRSN Domestic Abuse - Type of Abuse Not on file 06/15/2023 HRSN Domestic Abuse - Time Frame Not on file 06/15/2023 HRSN Domestic Abuse - Signs and Symptoms Not on file 06/15/2023 Verbal Abuse Denies 06/15/2023 HRSN Domestic Abuse - Reported To Not on file 06/15/2023 [facility] Transportation Source Answer Da te Recorded Has lack of transportation k ept you from medical appointments or from getting medications? No 06/22/2023 Has lack of transportation k ept you from meetings, work, or from getting things needed for daily living? No 06/22/2023 HRSN Depression PHQ-2 Answer Date Recor ded Feeling down, depressed, or hopeless 0 06/22/2023 Little interest or pleasure in doing things 0 06/22/2023 Comments Unknown Sex and Gender Information Value Date Recorded Sex Assigned at Not on file Legal Sex Female 11:47 AM EST Gender Identity Not on file Sexual Orientation Not on file Last Filed Vital Signs Vital Sign Reading Time Taken Comments Blood Pressure 118/78 06/22/2023 3:05 PM CDT Pulse 83 06/22/2023 3:05 PM CDT Temperature 36.3 C (97.3 F) 06/22/2023 8:43 AM CDT Respiratory Rate 16 06/22/2023 8:43 AM CDT Oxygen Saturation 96% 06/22/2023 12:47 PM CDT Inhaled Oxygen Concentration - - Weight 71.2 kg (157 lb) 06/20/2023 11:29 PM CDT Height 162.6 cm (5' 4) 06/15/2023 7:48 PM CDT Body Mass Index 26.95 06/15/2023 7:48 PM CDT Plan of Treatment Health Maintenance Due Date Last Done Comments CT Colonography 1968 Colonoscopy 1968 Colorectal Cancer Screening 1968 FIT-DNA (Cologuard) 1968 FIT 1968 FOBT 1968 HPV/PAP 1968 Sigmoidoscopy 1968 Annual Visit Topic 1969 MMR Vaccines (1 of 1 - Standard series) 1969 Hepatitis C Screening 1986 Hepatitis B Vaccines (1 of 3 - 19+ 3-dose series) 06/12/1987 Pap Smear 1989 Cervical Cancer Screening 1998 HPV/Cotest 1998 HPV 1998 Mammogram 2008 DTaP/Tdap/Td Vaccines (3 - Td or Tdap) 05/03/2033 05/03/2023, 06/20/2022, 03/24/2008 HIB Vaccines Aged Out 03/10/2021, 11/0 06/2019, 12/04/2013, Additional history exists No longer eligible based on patient's age to complete this topic HPV Vaccines Aged Out No longer eligi ble based on patient's age to complete this topic Hepatitis A Vaccines Aged Out No long er eligible based on patient's age to complete this topic IPV Vaccines Aged Out No longer eligi ble based on patient's age to complete this topic Meningococcal Vaccine Aged Out No vladimir neeraj eligible based on patient's age to complete this topic Pneumococcal Vaccine: Pediatrics (0 to 5 years) and At-Risk Patients (6 to 64 Years) Aged Out No longer eligible based on patient's age to complete this topic Advance Directives * Full Resuscitation (Latest Code Status on File) Date Activated Date Inactivated Comments 06/15/2023 8:47 PM 06/22/2023 9:56 PM Question Answer Comments I have discussed this order with the patient or his/her surrogate and have received informed consent. Yes RN verify * Full Resuscitation Date Activated Date Inactivated Comments 05/16/2023 3:57 PM 05/26/2023 4:31 PM Question Answer Comments I have discussed this order with the patient or his/her surrogate and have received informed consent. Yes RN verify Care Teams Spout Tender Relationship Specialty Start Date End Date Damaso Vazquez MD [address] [place] [id number] PCP - General Family Medicine 06/16/23
--- OUTSIDE RECORDS SUMMARY | 2025-02-22 12:11 | XMS_ITS | Encounter Summary ---
Author Organization [facility] Address [address] [place] [address] Phone Care Team Providers Care Powersaw Supervisor Name Role Phone Yuliana Florez APN Unavailable Unavailab Michel Shepherd APRN, VAULT CLERK Unavailable + [phone] Laureano Quigley MD Unavailable [phone] Saurav Goyal MD Unavailable Homer Alcala MD Primary Care Provider [phone] Ayala Weaver APRN, NETWORK CONTROL OPERATOR Unavailable + [phone] Encounter Details Date Type Department Care Team (Late st Contact Info) Description 02/08/2025 Results Follow-Up [facility] - Family [facility] #2 [place] [id number] Homer Alcala MD #[address] [address] RENÉ SCREENING BILATERAL DIGITAL W CAD W DARSHAN Social History Tobacco Use Types Packs/Day Years Used Date Smoking Tobacco: Former Cigarettes 0 Q uit: 03/13/1988 Smokeless Tobacco: Never Alcohol Use Standard Drinks/Week Comments Not Currently 0 (1 standard drink = 0.6 oz pur e alcohol) seldom [facility] Utilities Answer Date Recorded In the past 12 months has e [employer], gas, oil, or water [employer] threatened to shut off services in your home? Patient declined 04/16/2024 Social Connection and Isolation Panel Answer Date Recorded In a typical week, how many times do you talk on the phone with family, friends, or neighbors? Patient declined 04/16/2024 How often do you get togethe r with friends or relatives? Patient declined 04/16/2024 How often do you attend christianity or buddhist serv ices? Patient declined 04/16/2024 Do you belong to any clubs o r organizations such as christianity groups, unions, fraternal or athletic groups, or school groups? Patient declined 04/16/2024 How often do you attend meet ings of the clubs or organizations you belong to? Patient declined 04/16/2024 Are you , , di vorced, , never , or living with a partner? 04/16/2024 AUDIT-C Answer Date Recorded Q1: How often do you have a drink containing alc ohol? Monthly or less 04/16/2024 Q2: How many drinks containi ng alcohol do you have on a typical day when you are drinking? 1 or 2 04/16/2024 Q3: How often do you have si x or more drinks on one occasion? Patient declined 04/16/2024 Overall Financial Resource Strain (CARDIA) Answe r Date Recorded How hard is it for you to pa y for the very basics like food, housing, medical care, and heating? Somewhat hard 12/04/2023 PHQ-2 Answer Date Recorded Total Score - Questions 1-9 0 11/0 06/2024 [facility] - Occupational Stress Questionnaire Answer Date Recorded Do you feel stress - tense, restless, nervous, or anxious, or unable to sleep at night because your mind is troubled all the time - these days? Very much 12/04/2023 Exercise Vital Sign Answer Date Recorde d On average, how many days pe r week do you engage in moderate to strenuous exercise (like a brisk walk)? Patient declined On average, how many minutes do you engage in exercise at this level? Patient declined 12/04/2023 Hunger Vital Sign Answer Date Recorded Within the past 12 months, y ou worried that your food would run out before you got the money to buy more. Patient declined Within the past 12 months, t he food you bought just didn't last and you didn't have money to get more. Patient declined 01/2025 PRAPARE - Transportation Answer Date Re corded In the past 12 months, has l ack of transportation kept you from medical appointments or from getting medications? Yes 04/06 In the past 12 months, has l ack of transportation kept you from meetings, work, or from getting things needed for daily living? Yes 04/16/2024 Housing Stability Vital Sign Answer Yuan e Recorded In the last 12 months, was t here a time when you were not able to pay the mortgage or rent on time? Yes 04/16/2024 In the past 12 months, how m any times have you moved where you were living? 0 04/16/2024 At any time in the past 12 m onths, were you homeless or living in a usp (including now)? No 04/16/2024 Education Answer Date Recorded What is the highest level of school you have completed or the highest degree you have received? 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 Not on file Not on file Not on file documented as of this encounter Plan of Treatment Upcoming Encounters Date Type Department Care Team (Latest Contact Info) Description 03/03/2025 10:00 AM MAIL PROCESSING MACHINE OPERATOR [facility] #2 [place] [address] Homer Alcala MD #2 [facility] [address] [place] [address] Ann Graham MD #2 [facility] [address] [place] [address] 03/04/2025 2:00 PM MAIL PROCESSING MACHINE OPERATOR [facility] [place] #2 [place] [address] Homer Alcala MD #2 [facility] [address] [place] [address] Carolin Sykes, SHOP STEWARD, VAULT CLERK [address] [address] 03/19/2025 10:15 AM MAIL PROCESSING MACHINE OPERATOR [facility] [address] [facility] [address] [place] [address] Sujata Winn, SHOP STEWARD, VAULT CLERK [address] [place] [address] Michelle Patel, PT [place] Discharge Disposition: Discharged to home or Selfcare 03/21/2025 1:30 PM MAIL PROCESSING MACHINE OPERATOR [facility] - [place] #2 [place] [phone] Ayala Weaver, SHOP STEWARD, NETWORK CONTROL OPERATOR #2 [place] [address] 04/29/2025 9:00 AM MAIL PROCESSING MACHINE OPERATOR Office [facility] - [facility]rology - [place] #[address] [place] [address] Ayala Weaver APRN, NETWORK CONTROL OPERATOR #2 [place] [address] 05/09/2025 11:00 AM MAIL PROCESSING MACHINE OPERATOR Office Visit [facility] - Pulmonology & Sleep Medicine - [place] #2 [place] [address] Saurav Goyal MD #2 [place] [address] documented as of this encounter Goals Goal Patient Goal Type Associated Problems Recent Progress Patient-Stated? Author Depression Behavioral Health On track(2024 4:40 PM CDT) No Flora Yip LCSW Note: GOAL: Lisseth will manage depressive symptoms more effectively. Goal Reviewed with: patient today Readiness to change: Ready to change Department associated with goal: [facility] Steps to achieve goal: will attend counseling/psychotherapy sessions at least once monthly, utilizing individual and/or group sessions to express thoughts and feelings. to identify, verbalize and process at least three contributing factors/triggers to anxiety/depression. To identify at least two lifestyle changes/habits. to put into action, at least one lifestyle change/habit, for one month or longer, to reduce and or cope with anxiety and depression. Grief Behavioral Health On track(2024 4:40 PM CDT) No Flora Yip LCSW Note: GOAL: Lisseth will process feelings of grief and loss related to her son. Goal Reviewed with: patient today Readiness to change: Ready to change Department associated with goal: [facility] Steps to achieve goal: 1. will attend at least 1x/mo counseling sessions either individual and/or group, engaging in each session by verbalizing and processing thoughts and feelings related to grief and loss. 2. will report reduced feelings of guilt and resentment. 3. will identify and implement at least two outlets for grief and or coping skills to aid in managing problematic responses to grief. Chronic Illness/Mental Health Behavioral Health On track(2024 4:40 PM CDT) Flora Miller LCSW Note: Goal/Objective: Decrease negative impact of chronic illness on mental health. Anticipated Time Frame for Goal Completion: 6 months Goal Reviewed with: Patient Readiness to change: Ready to change Department associated with goal: [facility] Steps to achieve goal: will identify at least two coping skills/activities/habits that have helped reduce the negative impact of their chronic illness in the past. will identify at least three new coping skills/activities/habits that may help to prevent and/or cope with the negative impact of chronic illness on their mental health 3. will identify a plan to implement coping skills and follow this plan for one month and evaluate the impact on their chronic illness and their mental health 4. Will attend individual and/or group therapy at least 1x/month at least 6 sessions Goal/Objective: Decrease negative impact of chronic illness on mental health. Anticipated Time Frame for Goal Completion: 6 months Goal Reviewed with: Patient Readiness to change: Ready to change Department associated with goal: [facility] Steps to achieve goal: will identify at least two coping skills/activities/habits that have helped reduce the negative impact of their chronic illness in the past. will identify at least three new coping skills/activities/habits that may help to prevent and/or cope with the negative impact of chronic illness on their mental health 3. will identify a plan to implement coping skills and follow this plan for one month and evaluate the impact on their chronic illness and their mental health 4. Will attend individual and/or group therapy at least 1x/month at least 6 sessions documented as of this encounter Visit Diagnoses Not on filedocumented in this encounter Additional Health Concerns Assessment Noted Time PHQ-9 Depression Total Score: 0 01/08/20 25 5:14 PM MAIL PROCESSING MACHINE OPERATOR documented as of this encounter Care Teams Powersaw Supervisor Relationship Specialty Start Date End Date Homer Alcala MD #[address] [address] PCP - General Family Medicine 09/01/23 Yuliana Florez SUPERVISOR PLATE PASTING Advanced Practice Nurse 01/24/18 Michel Yanez, SHOP STEWARD, VAULT CLERK #2 [place] [address] Nurse Practitioner Advanced Practice Nurse 12/28/21 Laureano Quigley MD #[address] [address] Consulting Physician Urology 02/04/22 Saurav Goyal MD #2 [place] [address] Consulting Physician Pulmonary Disease 07/28/23 Ayala Weaver APRN, NETWORK CONTROL OPERATOR #[address] [place] [address] Nurse Practitioner Neurology 12/18/23 documented as of this encounter
--- OUTSIDE RECORDS SUMMARY | 2025-02-22 12:11 | XMS_ITS | Encounter Summary ---
Author Organization [facility] Address [address] [place] [address] Phone Care Team Providers Care Railroad Dining Car Steward/Stewardess Name Role Phone Yuliana Florez APN Unavailable Unavailab Michel Shepherd IT ASSISTANT, RELIEF MASTER Unavailable [phone] Laureano Quigley MD Unavailable [phone] Elsa Kenny IT ASSISTANT, RELIEF MASTER Unavailable [phone] Saurav Goyal MD Unavailable Homer Alcala MD Primary Care Provider [phone] Yuni Meneses FIBER OPTIC SPLICER Unavailable Unavailab Ayala Orozco IT ASSISTANT, SAFETY CLOTHING AND EQUIPMENT DEVELOPER Unavailable + [phone] Reason for Visit * Reason Onset Date Comments Medication Management 09/13/2023 Encounter Details Date Type Department Care Team (Late st Contact Info) Description 09/13/2023 Telephone [facility] [address] [place] [address] Adelaida Gooden, RN [place] Medication Management Social History Tobacco Use Types Packs/Day Years Used Date Smoking Tobacco: Former Cigarettes 0 Q uit: 03/13/1988 Smokeless Tobacco: Never Alcohol Use Standard Drinks/Week Comments Not Currently 0 (1 standard drink = 0.6 oz pur e alcohol) seldom PHQ-2 Answer Date Recorded Total Score - Questions 1-9 19 08/2023 Education Answer Date Recorded What is the [...] 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 Not on file Not on file documented as of this encounter Functional Status * BP Answer Date of Assessment Author 122/78 09/15/2023 8:56 AM CDT Gela Hustonia L, HEAD OF STOCK * Temp Answer Date of Assessment Author 97.5 09/15/2023 8:56 AM CDT Gela Huston rcia L, HEAD OF STOCK * Pulse Answer Date of Assessment Author 88 09/15/2023 8:56 AM CDT Gela Hustonia L, HEAD OF STOCK * Resp Answer Date of Assessment Author 18 09/15/2023 8:56 AM CDT Gela Hustonia Rex, HEAD OF STOCK * SpO2 Answer Date of Assessment Author 97 09/15/2023 8:56 AM CDT Gela Huston rcia L, HEAD OF STOCK documented as of this encounter Mental Status * BP Answer Entry Date Author 122/78 09/15/2023 8:56 AM CDT Gela Huston L, HEAD OF STOCK * Temp Answer Entry Date Author 97.5 09/15/2023 8:56 AM CDT Gela Hustonia L, HEAD OF STOCK * Pulse Answer Entry Date Author 88 09/15/2023 8:56 AM CDT Gela Huston, HEAD OF STOCK * SpO2 Answer Entry Date Author 97 09/15/2023 8:56 AM CDT [place], Ma rcia L, HEAD OF STOCK documented in this encounter Plan of Treatment Upcoming Encounters Date Type Department Care Team (Latest Contact Info) Description 03/03/2025 10:00 AM BRINE ROOM LABORER Office Visit [facility] - Orthopedic Surgery - [place] #[address] [place] [address] Homer Alcala MD #2 [facility] [address] [place] [address] Ann Graham MD #2 [facility] [address] [place] [address] 03/04/2025 2:00 PM BRINE ROOM LABORER [facility] [place] #[address] [place] [address] Homer Alcala MD #[address] [address] Carolin Sykes, IT ASSISTANT, RELIEF MASTER 2 [facility] [address] [place] [address] 03/19/2025 10:15 AM BRINE ROOM LABORER [facility] [address] [phone] Sujata Winn, IT ASSISTANT, RELIEF MASTER [address] [place] [address] Michelle Patel, PT [place] Discharge Disposition: Discharged to home or Selfcare 03/21/2025 1:30 PM BRINE ROOM LABORER [facility] - [place] #[address] [place] [address] Ayala Weaver, IT ASSISTANT, SAFETY CLOTHING AND EQUIPMENT DEVELOPER #2 [place] [address] 04/29/2025 9:00 AM BRINE ROOM LABORER Office Visit [facility] - Neurology - [place] #[address] [place] [address] Ayala Weaver APRN, SAFETY CLOTHING AND EQUIPMENT DEVELOPER #2 [place] [address] 05/09/2025 11:00 AM BRINE ROOM LABORER Office Visit [facility] - Pulmonology & Sleep Medicine - [place] #2 [facility] [address] Saurav Goyal MD #2 [place] [address] documented as of this encounter Goals Goal Patient Goal Type Associated Problems Recent Progress Patient-Stated? Author Depression Behavioral Health On track(2024 4:40 PM CDT) No Flora Yip LCSW Note: GOAL: Lisseth will manage depressive symptoms more effectively. Goal Reviewed with: patient today Readiness to change: Ready to change Department associated with goal: [facility] Steps to achieve goal: [...] 4:40 PM CDT) Flora Miller LCSW Note: GOAL: Lisseth will process feelings of grief and loss related to her son. Goal Reviewed with: patient today Readiness to change: Ready to change Department associated with goal: [facility] Steps to achieve goal: [...] aid in managing problematic responses to grief. documented as of this encounter Visit Diagnoses Not on filedocumented in this encounter Additional Health Concerns Infection Onset Date Last Indicated Resolved Time COVID - 19 10/08/2023 10/08/2023 10/08/2023 11:4 0 AM CDT COVID - 19 04/05/2024 04/05/2024 04/05/2024 12:3 5 PM BRINE ROOM LABORER COVID - 05/19/2024 05/19/2024 05/19/2024 6:18 PM CDT Assessment Noted Time PHQ-9 Depression Total Score: 19 024 7:46 AM CDT documented as of this encounter Care Teams Railroad Dining Car Steward/Stewardess Relationship Specialty Start Date End Date Homer Alcala MD #2 [facility] [address] [place] [address] PCP - General Family Medicine 09/01/23 Yuliana Florez APN Advanced Practice Nurse 01/24/18 Michel Yanez APRN, RELIEF MASTER #[address] [place] [address] Nurse Practitioner Advanced Practice Nurse 12/28/21 Laureano Quigley MD #2 [facility] [address] [place] [address] Consulting Physician Urology 02/04/22 Elsa Kenny APRN, RELIEF MASTER #2 [facility] [address] [place] [address] Nurse Practitioner Cardiology 07/14/23 09/17/24 Saurav Goyal MD #2 [place] [address] Consulting Physician Pulmonary Disease 07/28/23 Yuni Meneses, [facility] Asphalt Mixer Drift Miner 11/27/23 12/04/23 Ayala Weaver, IT ASSISTANT, SAFETY CLOTHING AND EQUIPMENT DEVELOPER #2 [place] [address] Nurse Practitioner Neurology 12/18/23 documented as of this encounter
--- OUTSIDE RECORDS SUMMARY | 2025-02-22 12:12 | XMS_ITS | Encounter Summary ---
Author Organization [facility] Address [address] [place] [address] Phone Care Team Providers Care Production Recorder Name Role Phone Yuliana Florez APN Unavailable Unavailab Damaso Chaudhari MD Primary Care Provider [phone] Michel Yanez APRN, RUBY ON RAILS CONSULTANT Unavailable [phone] Laureano Quigley MD Unavailable [phone] Elsa Kenny APRN, RUBY ON RAILS CONSULTANT Unavailable + [phone] Saurav Goyal MD Unavailable Homer Alcala MD Primary Care Provider [phone] Yuni Meneses DRAFTER ENGINEERING Unavailable Unavailab Ayala Orozco APRN, PLANT CYTOLOGIST Unavailable + [phone] Reason for Visit * Reason Comments Medication Refill Encounter Details Date Type Department Care Team (Late st Contact Info) Description 08/26/2023 Refill [facility] - [place] [address] [place] [address] Liset Foote, PAC #[address] [place] [address] Medication Refill Social History Tobacco Use Types Packs/Day Years Used Date Smoking Tobacco: Some Days Cigarettes 0 Last attempted to quit: 03/13/1988 Smokeless Tobacco: Never Alcohol Use Standard [...] 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 Requested Prescriptions Pending Prescriptions Disp Refills Breo Ellipta 100-25 MCG/ACT AEROSOL POWDER, BREATH ACTIVATED [Pharmacy Med Name: BREO ELLIPTA 100-25 AERO POW BR ACT] 60 Each 1 Sig: TAKE 1 PUFF BY INHALATION DAILY. Inhaled Combinations Protocol Passed - 08/26/2023 8:08 AM Passed - Visit with relevant provider in past 12 months or upcoming 90 days Recent Visits Date Type Provider Dept 08/25/23 [facility] 06/30/23 Office Visit Liset Foote PAC [facility] 10/06/22 Office Visit [facility] [place] 08/29/22 Telemedicine Damaso Vazquez MD [facility] Showing recent visits within past 365 days and meeting all other requirements Future Appointments Date Type Provider Dept 09/12/23 Appointment Homer Alcala MD [facility] Showing future appointments within next 90 days and meeting all other requirements Passed - Active short-acting beta agonist prescription documented in this encounter Plan of Treatment Upcoming Encounters Date Type Department Care Team (Latest Contact Info) Description 03/03/2025 10:00 AM COMPUTER SECURITY SPECIALIST Office Visit [facility] Medical [facility] - Orthopedic Surgery - [place] #[address] [place] [address] Homer Alcala MD #2 [facility] [address] [place] [address] Ann Graham MD #[address] [address] 03/04/2025 2:00 PM COMPUTER SECURITY SPECIALIST Office Visit [facility] Cardiology - [place] #2 [place] [address] Homer Alcala MD #[address] [address] Carolin Sykes APRN, RUBY ON RAILS CONSULTANT 2 [facility] [address] [place] [address] 03/19/2025 10:15 AM COMPUTER SECURITY SPECIALIST Physical Therapy [facility] Rehab at [facility] 200 [facility], [facility] [address] [place] [address] Sujata Winn, YEAST CULTURE DEVELOPER, RUBY ON RAILS CONSULTANT [address] [place] [address] Michelle Patel, PT [place] Discharge Disposition: Discharged to home or Selfcare 03/21/2025 1:30 PM COMPUTER SECURITY SPECIALIST Office Visit [facility] Neurology [facility] #2 [place] [address] Ayala Weaver, YEAST CULTURE DEVELOPER, PLANT CYTOLOGIST #2 [facility] [place] [address] 04/29/2025 9:00 AM COMPUTER SECURITY SPECIALIST Office Visit [facility] Neurology [facility] #2 [place] [address] Ayala Weaver, YEAST CULTURE DEVELOPER, PLANT CYTOLOGIST #2 [place] [address] 05/09/2025 11:00 AM COMPUTER SECURITY SPECIALIST Office Visit [facility] Pulmonology & Sleep Medicine - [place] #[address] [place] [address] Saurav Goyal MD #2 [place] [address] documented as of this encounter Goals Goal Patient Goal Type Associated Problems Recent Progress Patient-Stated? Author Depression Behavioral Health On track(2024 4:40 PM CDT) Flora Miller, [employer] FARMING SUPERVISOR Note: GOAL: Lisseth will manage depressive symptoms more effectively. Goal Reviewed with: patient today Readiness to change: Ready to change Department associated with goal: [facility] Steps to achieve goal: [...] to change Department associated with goal: [facility] Steps to achieve goal: [...] 19 04/05/2024 04/05/2024 04/05/2024 12:3 5 PM COMPUTER SECURITY SPECIALIST COVID - 19 05/19/2024 05/19/2024 05/19/2024 6:18 PM CDT Assessment Noted Time PHQ-9 Depression Total Score: 19 024 7:46 AM CDT documented as of this encounter Care Teams Production Recorder Relationship Specialty Start Date End Date Damaso Vazquez MD PCP - General Family Medicine 05/28/20 08/31/23 Homer Alcala MD #2 [place] [address] PCP - General Family Medicine 09/01/23 Yuliana Florez BRIDGE ATTACHER Advanced Practice Nurse 01/24/18 Michel Yanez, YEAST CULTURE DEVELOPER, RUBY ON RAILS CONSULTANT #2 [place] [address] Nurse Practitioner Advanced Practice Nurse 12/28/21 Laureano Quigley MD #2 [facility] [address] [place] [address] Consulting Physician Urology 02/04/22 Elsa Kenny, YEAST CULTURE DEVELOPER, RUBY ON RAILS CONSULTANT #2 [facility] [place] [facility] [address] [place] [address] Nurse Practitioner Cardiology 07/14/23 09/17/24 Saurav Goyal MD #2 [place] [address] Consulting Physician Pulmonary Disease 07/28/23 Yuni Meneses, [facility] Instructional Media Services Technician Blueprint Engineer 11/27/23 12/04/23 Ayala Weaver, YEAST CULTURE DEVELOPER, PLANT CYTOLOGIST #2 [place] [address] Nurse Practitioner Neurology 12/18/23 documented as of this encounter
--- OUTSIDE RECORDS SUMMARY | 2025-02-22 12:12 | XMS_ITS | Clinical Summary ---
Author Organization [facility] Address [address] [place] [address] Phone Care Team Providers Care Analyzer Sales Name Role Phone XUAN MARIE-NATASHA LANEE Rex Unavailable [phone] STACEY SANTOS,STEPHANIE, STUART A Primary Care Provider [phone] Reason for Visit and Chief Complaint The Chief Complaint is: 1 MO FU AFTER TELEHEALTH ~C/O LEADS FROM [facility] HAVE MOVED ~HAVING SURGERY ON 04/24/23 ON NECK ~UNABLE TO CONNECT WITH [employer] FOR INTERROGATION ~NEEDS REFILLS Plan of Treatment Instructions to patient Intervention and counseling on cessation of tobacco use : Patient recieved smoking cessation handout Last Documented On 4 4:18PM ; [facility] Education and Decision Aids were provided during visit for: Pill Count: nine HYDROCODONE Last Documented On 4 4:25PM ; [facility] Assessments Includes: Assessments from this encounter Findings - Subacromial bursitis on the right [M75.51 - Bursitis of right shoulder] - Last Documented On 04/14/2023 8:15AM ; [facility] - Cervical radiculopathy [M54.12 - Radiculopathy, cervical region] - Last Documented On 04/14/2023 8:15AM ; [facility] - Myalgia [M79.18 - Myalgia, other site] - Last Documented On 04/14/2023 8:15AM ; [facility] - Chronic pain syndrome [G89.4 - Chronic pain syndrome] - Last Documented On 04/14/2023 8:15AM ; [facility] - 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 [Z79.891 - 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 (current) use of 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] - Last Documented On 04/14/2023 8:15AM ; [facility] Instructions Includes: Instructions from this encounter Instructions to patient Intervention and counseling on cessation of tobacco use : Patient recieved smoking cessation handout Last Documented On 4 4:18PM ; [facility] Education and Decision Aids were provided during visit for: Pill Count: nine HYDROCODONE Last Documented On 4 4:25PM ; [facility] Medical Equipment - Implanted Devices Includes: Current Devices No Medical Equipment Recorded Medications Includes: Medications discussed during this encounter and other current Medications Current Medications (continue as prescribed) HYDROcodone-Acetaminophen 7. 5-325 MG Oral Tablet 04/17/2023 Provider: EULALIA ISABEL Diagnosis: Other spondylosi s with radiculopathy, lumbar region 1 BY MOUTH TWICE DAILY NEEDED Last Documented On 4 8:11AM By EULALIA ISABEL ; [facility] Cyclobenzaprine HCl 5 MG Oral Tablet 04/11/2023 Prov ider: EULALIA ISABEL Diagnosis: ONE (1) TO TWO (2) BY MOUTH EVERY NIGHT AT BEDTIME NEEDED Last Documented On 4 10:49AM By EULALIA ISABEL ; [facility] Pregabalin 100 MG Oral Capsule 02/20/2023 Provider: EULALIA HERNÁNDEZ Diagnosis: Chronic pain syn drome 1 CAPSULE TWO TIMES A DAY Last Documented On 3 1:55PM By EULALIA ISABEL ; [facility] FLUoxetine HCl 20 MG Oral Capsule 09/26/2022 Provide r: LB DENIS NP Diagnosis: Last Documented On 10/06/2022 4:20PM By Vilma BENTON ; [facility] Levothyroxine Sodium 88 MCG Oral Tablet 07/25/2022 Nelly castillo: Diagnosis: Last Documented On 07/28/2022 4:14PM By Vilma BENTON ; [facility] Losartan Potassium 50 MG Oral Tablet 07/18/2022 Prov ider: WALESKA GOYAL MD Diagnosis: Last Documented On 07/28/2022 4:15PM By Vilma BENTON ; [facility] buPROPion HCl ER (XL) 300 MG Oral Tablet Extended Release 24 Hour 07/12/2022 Provider: WALESKA GOYAL MD Diagnosis: Last Documented On 07/28/2022 4:13PM By Vilma BENTON ; [facility] Amphetamine-Dextroamphet ER 20 MG Oral Capsule Extended Release 24 Hour 07/11/2022 Provider: WALESKA GOYAL MD Diagnosis: Last Documented On 07/28/2022 4:16PM By Vilma BENTON ; [facility] Ondansetron HCl 4 MG Oral Tablet 07/07/2022 Provider : WALESKA GOYAL MD Diagnosis: Last Documented On 07/12/2022 4:27PM By Vilma BENTON ; [facility] Desvenlafaxine Succinate ER 100 MG Oral Tablet Extended Release 24 Hour 07/01/2022 Provider: WALESKA GOYAL MD Diagnosis: Last Documented On 07/28/2022 4:14PM By Vilma BENTON ; [facility] Pantoprazole Sodium 40 MG Or al Tablet Delayed Release 06/15/2022 Provider: WALESKA GOYAL MD Diagnosis: Last Documented On 07/12/2022 4:28PM By Vilma BENTON ; [facility] Narcan 4 MG/0.1ML Nasal Liquid 08/06/2020 Provider: EULALIA GOVEA [facility] - Diagnosis: 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 (curre nt) use of 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 as directed Last Documented On 4:33PM By ANJU MARRUFO [facility] ; [facility] Medications Administered Includes: Administered Medications from this encounter No Administered Medications Recorded Vital Signs Includes: Vital Signs from this encounter Vital Name 04/13/2023 04:18P Blood Pressure Sitting R 136/90 Pulse Rate-Sitting (bpm) 94 Temp-Temporal 96.1 Height (in) 64 Weight (lb) 155 Body Mass Index 26.6 Body Surface Area 1.8 Pain Level 6 Oxygen Saturation (%) 92 Last Documented: On 04/13/2023 4:21PM ; [facility] Results Includes: Results discussed during this encounter No Results Recorded For Specified Dates History of Present Illness Includes: History of Present Illness from this encounter HPI - Allergy list reviewed - Problem list reviewed - Medication reconciliation performed - Medication list reviewed - Prescription Drug Monitoring Program website checked. 03/14/23 - How much of the medication are you taking a day? PRN - Last dose of medication? 2 PM - No vertigo - Last drug screen appropriate 10/06/22 Discussion: Patient returns in follow-up for medication. She continues hydrocodone twice daily for increased neck and shoulder pain following an accident. There is a plan for surgery mid April. We will refill pain medication until surgery date. She is not met with [employer] to have stimulator interrogated. I encouraged her to get this done. She doesn't feel it is providing as much coverage as before and her lower extremity symptoms. She plans to reach out to [employer] to see if they could meet her closer to her workplace. Past note: Patient returns in follow-up for medication. She suffers from chronic neck and low back pain. Neck and shoulder were doing well following a shoulder injection several months ago. Low back pain is controlled with spinal cord stimulation. Patient sustained an injury in the last few weeks. She describes a trapdoor falling and striking her on the head and neck. She is planning to see a surgeon tomorrow and has an ongoing personal injury case. She does have a history of neck pain, though was doing very well up to this point. She has increase the use of hydrocodone 21-2 times per day, having previously almost completely come off this medication. She does need a refill. She continues pregabalin 100 mg twice daily. Past note: Patient presents in follow up for medication. Low back and radicular symptoms are managed with spinal cord stimulation. She feels this is helpful and uses less pain medication overall. The right shoulder is still doing well following a shoulder injection 4-5 weeks ago. She reports taking less medication and does not need a refill today. Past note 07/28/22: Patient presents with ongoing right shoulder pain as well as neck pain into the upper extremities. On the right side pain appears to be located mainly in the shoulder and worsens with shoulder movement. There is some radiating pain into the forearm. Left-sided symptoms radiate down the left upper extremity and worsen with Spurling's maneuver. It appears right sided symptoms stemming from the shoulder and left- sided symptoms majority are coming from the neck. She feels the right shoulder is most limiting as she is right-hand dominant and having difficulty doing simple tasks. Physical therapy increase to symptoms and she has stopped. We discussed a right shoulder injection. If symptoms on the left persist, she can consider a cervical epidural. She had a cervical epidural in February which was significantly painful for her. She states she will need some kind of sedation prior to this procedure if it will need repeated. We will see how she does with the shoulder injection first. She will hold off on therapy for now Addendum: Patient has lost the remote control to her [employer] stimulator device. She needs a replacement in order to change programs and work the device properly and with optimal efficacy Past note 07/12/22: Patient presents in follow up for medication. She is doing fairly well. She reports a fall 2-3 weeks ago in the bathroom and she struck her head requring lauryn. Her neck and shoulder pain increased some. She has been doing massage therapy. She did have imaging done. Therapy is helping some with spasms as headaches. Hydrocodone is used as needed. SCS is used for low back pain. Past note 05/10/22: Patient presents in follow up. She is still doing well from the cervical epidural, though this was very painful. She has not used pain medication for about a week, but would like a small refill. We would like her to minimize this medication. She would like to try to decrease pregabalin. We discussed if pain medication requirement increases, we will need to adjust this again. She continues to utilize the SCS 24 hours a day with good benefit. Past note: Patient here today for follow-up after undergoing C6-7 interlaminar epidural steroid injection on February 23. She reports this was extremely painful for her. She states her blood pressure and heart rate dropped and she thinks she passed out while on the table. She does not know if she could tolerate this again. Currently, she has about 50 to 60% improvement in her neck pain. Her arm pain has resolved. She has a prescription for Celebrex but states she only takes it as needed. She continues Flexeril at bedtime. She continues Hydrocodone as needed and Pregabalin twice a day. She states the spinal cord stimulator is the best thing that she has ever done for her back and leg pain. We discussed restarting her Celebrex daily for two weeks with a meal to see if this helps with her neck pain. I will also give her a home exercise program to start. A lot of her remaining pain may be muscular in nature. She sits a lot at a computer and likely has deconditioning of the paraspinous muscles that support the cervical spine. She verbalizes understanding and would like to do this prior to proceeding with any other interventions. PRIOR VISIT: Patient presents 1 week following implantation of dorsal column stimulator with peripheral leads. She is getting relief with the device. There is still some procedural soreness. [employer] presents today to educate further on charging and programming, they will see her again in approximately 5 weeks for sensor settings. She is complaining of more noticeable neck pain with pain into the right upper extremity. This is a chronic issue that had become secondary when back pain became severe. Pain worsens with rotation and extension. There is intermittent numbness in the arm. She has done therapy and currently engaged in home exercises. Amendment: Therapy on cervical spine done in 06/2021, total of 9 sessions. Pain did not improve, actually worsened at times. She has been on opioid medication, nsaids and lyrica for symptoms with ongoing pain. Imaging: All relevant imaging available was personally reviewed with the patient today with the following tests and results noted: MRI Cervical Spine 02/14/2022 Impression: at C5- C6, small white central disc protrusion resulting in moderate right foraminal stenosis and contacting the exiting right C6 nerve root MRI L spine December 2019: mild to moderate bilateral neural foraminal narrowing at L5-S1 MRI L spine 07/08/21: L2-3 mild bilateral hypertrophic facet arthropathy, noting slight facet fluid in the joint suggesting facet synovitis. Mild ligamentum flavum thickening. No foraminal worse central canal stenosis. L3-4-mild bilateral hypertrophic facet arthropathy. Ligamentum flavum thickening. No spinal canal stenosis. Mild bilateral neural foraminal stenosis. At P6-7-dntmvxah overhanging posterior cortical margin. Mild to moderate bilateral hypertrophic facet arthropathy. Ligamentum flavum thickening . No spinal canal stenosis. Mild bilateral neural foraminal stenosis. L5-S1-fused at this level. Facet arthropathy. Moderate right and mild to moderate left neural foraminal stenosis. Combination of inferior particular surface and posterior cortical margin/disc variable contact with exiting bilateral L5 nerve roots. MRI right shoulder 06/29/21: moderate to severe tendinosis of the posterior insertional supraspinatus fibers with small interstitial tear. No full thickness tear identified. Mild to moderate insertional tendinosis of the infraspinatus without tear. NO Bicep tear or subluxation. No labral or capsular ligamentous injury Social History Description Last Updated Former smoker 04/13/2023 Last Documented On 4 8:15AM ; [facility] Smoker 09/10/2019 Last Documented On 4 4:18PM ; [facility] Smoking status : Current everyday smoker 03/20/2019 Last Documented On 4 4:18PM ; [facility] 10/18/2018 Last Documented On 4 4:18PM ; [facility] Procedures and Surgical History Includes: Procedures from this encounter Procedures Code Diagnosis Performing Provider Service L ocation Service Date intervention and counseling on cessation of tobacco use : Patient recieved smoking cessation handout 4000F Last Documented On 4 4:18PM ; [facility] use of tobacco assessment performed 1000F Last Documented On 4 4:25PM ; [facility] patient screened for future fall risk: documentation of any fall with injury in past year 1100F Last Documented On 4 4:18PM ; [facility] review of medications documented 1160F Last Documented On 4 4:25PM ; [facility] assessment of suicide risk performed Last Documented On 4 4:18PM ; [facility] screening for adult depression: impressi on and score eight Last Documented On 4 4:18PM ; [facility] standardized depression screening: posit chelle for symptoms Last Documented On 4 4:18PM ; [facility] SOAPP-R: total score 12 Last Documented On 4 4:18PM ; [facility] Medical History Includes: Medical History addressed during this encounter Description Last Updated Denies a fear of falling. 04/13/2023 Last Documented On 4 8:15AM ; [facility] Has had a fall in the last 12 months. Last Documented On 4 4:18PM ; [facility] Reviewed and Unchanged 05/02/2019 Last Documented On 4 4:18PM ; [facility] 0 miscarriage(s) 10/18/2018 Last Documented On 4 4:18PM ; [facility] Currently wearing eyeglasses 10/18/2018 Last Documented On 4 4:18PM ; [facility] Previously 2 time(s) 10/18/2018 Last Documented On 4 4:18PM ; [facility] History of hypertension 10/18/2018 Last Documented On 4 4:18PM ; [facility] Surgery back surgery 2012 10/18/2018 Last Documented On 4 4:18PM ; [facility] Family History Includes: Family History addressed during this encounter No Family History Recorded Review of Systems Includes: Review of Systems from this encounter Systemic: No systemic symptoms other than noted, no fever, and no chills. Head: No head symptoms other then noted and no headache. Neck: Neck pain. Cardiovascular: No chest pain or discomfort. Pulmonary: No dyspnea. Gastrointestinal: No gastrointestinal symptoms other than noted, no difficulty chewing, and no heartburn. No nausea. Genitourinary: No urinary loss of control. Musculoskeletal: Lower back pain. Neurological: No fainting passing out with needles or medical procedures, no motor disturbances, and no sensory disturbances. Psychological: Anxiety and depression. Skin: No skin symptoms other than noted. Mental Status Includes: Mental Status from this encounter Description Anxiety Functional Status Includes: Functional Status from this encounter No Functional Status Recorded Physical Exam Includes: Physical Exam from this encounter Allergies Includes: Active Allergies Substance Type Reaction Onset Date Resolved Date Statu s Morphine Sulfate Allergy Skin Rashes / E ruption of skin 10/18/2018 Active Last Documented On 4 4:26PM ; [facility] Levaquin Allergy 10/08/2020 Active Last Documented On 4 4:26PM ; [facility] Encounters Encounter Provider Location Date Check-In Time Check-Out Time Diagnosis PAIN MANAGEMENT FOLLOW UP EULALIA MARIE-[facility] 04/13/19 24 4:08PM 4:53PM Bursitis Subacromial Right,Detention Use of Opiate Analgesic,Myalgi a , Other Site (M79.18),Chronic Pain Syndrome,Cervica l Radiculopathy Insurance Includes: Active Insurance Policies Plan Name Member ID Group # Subscriber Relationship Effect chelle Dates 1 - MEDICAID [facility] [id number] RITO FUENTES Self Clinical Notes Includes: Clinical Notes from this encounter * Progress note Date Encounter Last Documented by 04/13/2023 PAIN MANAGEMENT FOLLOW UP Last d ocumented on 04/14/2023; 8:15 AM, EULALIA L XUAN ANP-; [facility] Chief Complaint The Chief Complaint is: 1 MO FU AFTER TELEHEALTH C/O LEADS FROM [facility] HAVE MOVED HAVING SURGERY ON 04/24/23 ON NECK UNABLE TO CONNECT WITH [employer] FOR INTERROGATION NEEDS REFILLS. History of Present Illness - Allergy list reviewed - Problem list reviewed - Medication reconciliation performed - Medication list reviewed - Prescription Drug Monitoring Program website checked. 03/14/23 - How much of the medication are you taking a day? PRN - Last dose of medication? 2 PM - No vertigo - Last drug screen appropriate 10/06/22 Discussion: Patient returns in follow-up for medication. She continues hydrocodone twice daily for increased neck and shoulder pain following an accident. There is a plan for surgery mid April. We will refill pain medication until surgery date. She is not met with [employer] to have stimulator interrogated. I encouraged her to get this done. She doesn't feel it is providing as much coverage as before and her lower extremity symptoms. She plans to reach out to [employer] to see if they could meet her closer to her workplace. Past note: Patient returns in follow-up for medication. She suffers from chronic neck and low back pain. Neck and shoulder were doing well following a shoulder injection several months ago. Low back pain is controlled with spinal cord stimulation. Patient sustained an injury in the last few weeks. She describes a trapdoor falling and striking her on the head and neck. She is planning to see a surgeon tomorrow and has an ongoing personal injury case. She does have a history of neck pain, though was doing very well up to this point. She has increase the use of hydrocodone 21-2 times per day, having previously almost completely come off this medication. She does need a refill. She continues pregabalin 100 mg twice daily. Past note: Patient presents in follow up for medication. Low back and radicular symptoms are managed with spinal cord stimulation. She feels this is helpful and uses less pain medication overall. The right shoulder is still doing well following a shoulder injection 4-5 weeks ago. She reports taking less medication and does not need a refill today. Past note 07/28/22: Patient presents with ongoing right shoulder pain as well as neck pain into the upper extremities. On the right side pain appears to be located mainly in the shoulder and worsens with shoulder movement. There is some radiating pain into the forearm. Left-sided symptoms radiate down the left upper extremity and worsen with Spurling's maneuver. It appears right sided symptoms stemming from the shoulder and left- sided symptoms majority are coming from the neck. She feels the right shoulder is most limiting as she is right-hand dominant and having difficulty doing simple tasks. Physical therapy increase to symptoms and she has stopped. We discussed a right shoulder injection. If symptoms on the left persist, she can consider a cervical epidural. She had a cervical epidural in February which was significantly painful for her. She states she will need some kind of sedation prior to this procedure if it will need repeated. We will see how she does with the shoulder injection first. She will hold off on therapy for now Addendum: Patient has lost the remote control to her [employer] stimulator device. She needs a replacement in order to change programs and work the device properly and with optimal efficacy Past note 07/12/22: Patient presents in follow up for medication. She is doing fairly well. She reports a fall 2-3 weeks ago in the bathroom and she struck her head requring lauryn. Her neck and shoulder pain increased some. She has been doing massage therapy. She did have imaging done. Therapy is helping some with spasms as headaches. Hydrocodone is used as needed. SCS is used for low back pain. Past note 05/10/22: Patient presents in follow up. She is still doing well from the cervical epidural, though this was very painful. She has not used pain medication for about a week, but would like a small refill. We would like her to minimize this medication. She would like to try to decrease pregabalin. We discussed if pain medication requirement increases, we will need to adjust this again. She continues to utilize the SCS 24 hours a day with good benefit. Past note: Patient here today for follow-up after undergoing C6-7 interlaminar epidural steroid injection on February 23. She reports this was extremely painful for her. She states her blood pressure and heart rate dropped and she thinks she passed out while on the table. She does not know if she could tolerate this again. Currently, she has about 50 to 60% improvement in her neck pain. Her arm pain has resolved. She has a prescription for Celebrex but states she only takes it as needed. She continues Flexeril at bedtime. She continues Hydrocodone as needed and Pregabalin twice a day. She states the spinal cord stimulator is the best thing that she has ever done for her back and leg pain. We discussed restarting her Celebrex daily for two weeks with a meal to see if this helps with her neck pain. I will also give her a home exercise program to start. A lot of her remaining pain may be muscular in nature. She sits a lot at a computer and likely has deconditioning of the paraspinous muscles that support the cervical spine. She verbalizes understanding and would like to do this prior to proceeding with any other interventions. PRIOR VISIT: Patient presents 1 week following implantation of dorsal column stimulator with peripheral leads. She is getting relief with the device. There is still some procedural soreness. [employer] presents today to educate further on charging and programming, they will see her again in approximately 5 weeks for sensor settings. She is complaining of more noticeable neck pain with pain into the right upper extremity. This is a chronic issue that had become secondary when back pain became severe. Pain worsens with rotation and extension. There is intermittent numbness in the arm. She has done therapy and currently engaged in home exercises. Amendment: Therapy on cervical spine done in 06/2021, total of 9 sessions. Pain did not improve, actually worsened at times. She has been on opioid medication, nsaids and lyrica for symptoms with ongoing pain. Imaging: All relevant imaging available was personally reviewed with the patient today with the following tests and results noted: MRI Cervical Spine 02/14/2022 Impression: at C5- C6, small white central disc protrusion resulting in moderate right foraminal stenosis and contacting the exiting right C6 nerve root MRI L spine December 2019: mild to moderate bilateral neural foraminal narrowing at L5-S1 MRI L spine 07/08/21: L2-3 mild bilateral hypertrophic facet arthropathy, noting slight facet fluid in the joint suggesting facet synovitis. Mild ligamentum flavum thickening. No foraminal worse central canal stenosis. L3-4-mild bilateral hypertrophic facet arthropathy. Ligamentum flavum thickening. No spinal canal stenosis. Mild bilateral neural foraminal stenosis. At U0-7-[id number] overhanging posterior cortical margin. Mild to moderate bilateral hypertrophic facet arthropathy. Ligamentum flavum thickening . No spinal canal stenosis. Mild bilateral neural foraminal stenosis. L5-S1-fused at this level. Facet arthropathy. Moderate right and mild to moderate left neural foraminal stenosis. Combination of inferior particular surface and posterior cortical margin/disc variable contact with exiting bilateral L5 nerve roots. MRI right shoulder 06/29/21: moderate to severe tendinosis of the posterior insertional supraspinatus fibers with small interstitial tear. No full thickness tear identified. Mild to moderate insertional tendinosis of the infraspinatus without tear. NO Bicep tear or subluxation. No labral or capsular ligamentous injury Test Conclusions PHQ-9 Score: 8 Date:05/10/22 BPI Score: Date: MiDAS Score: Date: SOAPP-R Score: 12 Moderate Date: 05/10/22 Past Medical/Surgical History Reported: Surgery back surgery 2011. Medical: Currently wearing eyeglasses. Physical Trauma: Has had a fall in the last 12 months. Denies a fear of falling. : Previously 2 time(s) and aborta including 0 miscarriage(s). Diagnoses: Systemic hypertension Reviewed and Unchanged. Current Medication - Amphetamine-Dextroamphet ER 20 MG Oral Capsule Extended Release 24 Hour One tablet daily 30 days, 0 refills - buPROPion HCl ER (XL) 300 MG Oral Tablet Extended Release 24 Hour One tablet at bed time 30 days, 0 refills - Cyclobenzaprine HCl 5 MG Oral Tablet ONE (1) TO TWO (2) BY MOUTH EVERY NIGHT AT BEDTIME NEEDED , 30 days, 1 refills - Desvenlafaxine Succinate ER 100 MG Oral Tablet Extended Release 24 Hour One tablet daily 30 days, 0 refills - FLUoxetine HCl 20 MG Oral Capsule 1 capsule daily 30 days, 0 refills - HYDROcodone-Acetaminophen 7.5-325 MG Oral Tablet 1 po bid prn, 30 days, 0 refills - Levothyroxine Sodium 88 MCG Oral Tablet One tablet daily 30 days, 0 refills - Losartan Potassium 50 MG Oral Tablet One tablet daily 30 days, 0 refills - Narcan 4 MG/0.1ML Nasal Liquid as directed, 30 days, 0 refills - Ondansetron HCl 4 MG Oral Tablet as needed 20 days, 0 refills - Pantoprazole Sodium 40 MG Oral Tablet Delayed Release 1 capsule daily 30 days, 0 refills - Pregabalin 100 MG Oral Capsule 1 CAPSULE TWO TIMES A DAY, 90 days, 0 refills Social History Tobacco use: Former smoker, smoker, and smoking status: Current everyday smoker. Marital: . Allergies - Levaquin - Morphine Sulfate Reaction: Skin Rashes / Eruption of skin Review Of Systems Systemic: No systemic symptoms other than noted, no fever, and no chills. Head: No head symptoms other then noted and no headache. Neck: Neck pain. Cardiovascular: No chest pain or discomfort. Pulmonary: No dyspnea. Gastrointestinal: No gastrointestinal symptoms other than noted, no difficulty chewing, and no heartburn. No nausea. Genitourinary: No urinary loss of control. Musculoskeletal: Lower back pain. Neurological: No fainting passing out with needles or medical procedures, no motor disturbances, and no sensory disturbances. Psychological: Anxiety and depression. Skin: No skin symptoms other than noted. Physical Findings - Vitals taken 04/13/2023 04:18 pm BP-Sitting R 136/90 mmHg Pulse Rate-Sitting 94 bpm Temp-Temporal 96.1 F Height 64 in Weight 155 lbs Body Mass Index 26.6 kg/m2 Body Surface Area 1.8 m2 Pain Level 6 Pain Level Note NECK AND RIGHT SHOULDER Oxygen Saturation 92 % Psychiatric: Psychiatric: Value PHQ9 score: 8 HEENT: NC/AT. Anicteric. Clear Conjunctiva. PERRLA. MM's pink/moist. No discharge of EAC. Neck supple. CVS: No peripheral edema. Peripheral pulses palpable in all extremities. Pulmonary: Normal chest expansion Spine/MSK: tenderness bilateral cervical facet joints and paraspinals. Decreased cervical and right shoulder range of motion. Gait: Not antalgic. No steppage gait. Heel walk normal. Toe walk normal. Neuro: Awake. Alert. Oriented x3. DTR's intact in all extremities. DTR's equal in all extremities. No focal neurologic deficit. No motor weakness Psych: No apparent distress. Mood normal. Affect normal. No pain behaviors. Skin: No rashes. No pigment or temperature abnormalities. 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 - Assessment of suicide risk performed Counseling/Education - Pill Count: nine HYDROCODONE Discussed Will continue chronic opioid therapy. Reports improvement in pain. Patient is able to maintain function levels with use of medication management. Reports no adverse side effects. Patient advised of risks and benefits of medication- including tolerance, dependence, addiction, constipation, itching, allergic reactions, sedation, impairment, respiratory depression or failure, development of hyperalgesia Patient was instructed on taking mediation correctly; storing medication securely; disposing of medication properly and to never share medication. Refill hydrocodone to last until surgery date. Surgeon will manage post op pain. 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 Results of this interaction were communicated directly to the patient's referring and/or primary care provider. All imaging studies and test results discussed in the above document were personally reviewed and evaluated by the performing provider. For all patients on acute or chronic opioids, ongoing need for opioid analgesia is assessed at each visit with consideration of discontinuation or wean to lowest effective dose when possible and appropriate. Contents of this document have been edited for correctness, but may be subject to typographical or courtesy clerk errors. Verify all diagnoses, medications, dosages, and patient instructions with patient and/or the originator of this document. Care Team - CYNTHIA CRABTREE- - Pain Management Health Reminders - Assess BMI satisfied 04/13/2023. - Assess Tobacco Use satisfied 04/13/2023. - Depression Screening satisfied 04/13/2023. - Follow up plan for Depression Screening satisfied 04/13/2023. - Smoking & Tobacco Cessation Intervention and Counseling satisfied 04/13/2023.
--- OUTSIDE RECORDS SUMMARY | 2025-02-22 12:12 | XMS_ITS | Data Portability ---
Author Organization [facility], Main Office Address [address] [place] [address] Care Team Providers Care Rn Advanced Name Role Phone WALESKA GOYAL Primary Care Provider DEBBI BRUNO Primary Care Provider [phone] Assessment No assessment recorded. Plan of Treatment Reminders Order Date Submit Date Provider Last Modified By Organization Details Last Modified Time Details Appointments None record ed. Lab None record ed. Referral None record ed. Procedures None record ed. Surgeries None record ed. Imaging None record ed. Medication Orders None record ed. Patient TargetsNo targets recorded. Patient Instructions Encounter Date Encounter Id Patient Instructions Last Modified By Organization Details Last Modified Time 07/05/[id number] of the trachea will be performed. However it is very important that she receives continuity of care from her treating sfdc technical architect guest experience manager and neurologist. Her boyfriend who was in attendance will assist [place] [id number] Not available 07/05/2023 11:23:19 Reason for Referral None Reported. 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 Procedures Surgical History Date Name Laterality Status Provider Name and Address Organization Details Recorded Time Tracheal suction tube completed FORREST Manjarrez [facility] 07/03/2023 12:20:37 Imaging Results None recorded. Procedure Notes None recorded. Medical Equipment None Reported. Allergies Allergen ID Allergen Name Allergen Category Reaction Reaction Severity Criticality Documentation Date Start Date Code Code System Note Provider Name and Address Organization Details Recorded Time 91491 Levaquin medicatio n Not available Not available Not available 07/05/2023 12056 2 RxNorm Annie Balderas RN null, [facility] 4 10:27:55 04990 morphine medicatio n Not available Not available Not available 07/05/2023 7052 RxNoalex Balderas RN null, [facility] 4 10:27:02 73891 tetracycl ine medicatio n Not available Not available Not available 07/05/2023 85536 RxNorm Annie Balderas RN null, [facility] 4 10:27:12 78825 levofloxa tho medicatio n Not available Not available Not available 07/05/2023 94255 RxNorm Annie Balderas RN null, [facility] 4 10:27:52 Medications Name Sig Start Date Stop Date Status Note LastModified by Organization Details LastModified Time atorvastatin 40 mg tablet Take 1 tablet every day by oral route. active Not Available Not Available No t Available cetirizine 10 mg tablet Take 1 tablet every day by oral route. active Not Available Not Available No t Available fluconazole 150 mg tablet TAKE 1 TABLET BY MOUTH ONCE FOR 1 DOSE. DO NOT TAKE UNTIL FINISHED WITH ANTIBIOTIC active Not Available Not Available N ot Available levetiraceta m 500 mg tablet Take 1 tablet twice a day by oral route. active Not Available Not Available No t Available clopidogrel 75 mg tablet Take 1 tablet every day by oral route. active Not Available Not Available No t Available quetiapine 100 mg tablet Take 1 tablet twice a day by oral route. active Not Available Not Available No t Available levothyroxin e 100 mcg tablet Take 1 tablet every day by oral route. active Not Available Not Available No t Available famotidine 20 mg tablet Take 1 tablet twice a day by oral route. active Not Available Not Available No t Available lorazepam 0.5 mg tablet Take 2 tablets 3 times a day by oral route. active Not Available Not Available No t Available aspirin 81 mg chewable tablet Chew 1 tablet every day by oral route. active Not Available Not Available No t Available hydroxyzine HCl 25 mg tablet Take 1 tablet 3 times a day by oral route. active Not Available Not Available No t Available methylpredni solone 4 mg tablets in a dose pack active Not Available Not Available No t Available fluticasone propionate 50 mcg/actuatio n nasal spray,suspen gaurang Cadott 1 spray every day by intranasal route. active Not Available Not Available No t Available oxymetazolin e 0.05 % nasal spray Cadott 2 sprays twice a day by intranasal route. active Not Available Not Available No t Available dexamethason e active Not Available Not Available Not Available polyethylene glycol (bulk) active Not Available Not Available Not Available Vitals Date Recorded Body weight Body mass index (BMI) Body height Body temperature Provider Name and Address Organization Details Last Updated DateTime 07/05/2023 91355.71 g 24.9 kg/m2 161.29 cm 98 [degF] Annie Balderas RN [place] [facility] [employer] 07/05/2023 10:41:11 Social History None recorded. Functional Status Question Answer Note LastModified by Organization D etails LastModified Time What is your level of alcohol consumption? None ftrotter Information not available 07/03/2023 Mental Status None recorded. Family History Nothing Reported. Medical History Condition Response ENT Y SEASONAL ALLERGIES Y HAVE YOU BEEN HOSPITALIZED OR SEEN IN [facility] ER IN THE PAST YEAR ? Y STROKE/TIA Y Gynecological HistoryNo gynecological history recorded. Obstetrics History GPAL:G 0 P 0 0 0 0 Past Encounters Encounter ID Performer Location Encounter Start Date Encounter Closed Date Diagnosis/Indication Diagnosis SNOMED-CT Code Diagnosis ICD10 Code Diagnosis IMO Codes Diagnosis Note [id number] Saul Singh MD [facility] [place] [address] [place] [address] 07/05/2023 10:06:43 08/02/2023 15:09:25 Subglottic stenosis 68823581 J38.6 Health Concerns Section Related Observation LastModified by Organization Detai ls LastModified Time None Recorded Concern Status LastModified by Organization Details LastModified Time None Recorded Advance Directives Directive None Recorded Payers Insurance Date Sequence Insurance Name Policy Number Policy Singer Covered Member ID Singer Member ID Guarantor Name 09/11/2023 1 [facility] [id number] Lisseth Gutierrez [id number] Lisseth Gutierrez 07/05/2023 1 [facility] [id number] Lisseth Gutierrez [id number] Lisseth Gutierrez Notes Date Note Type Note Provider Name and Address Organization Details Recorded Time 07/05/2023 text/html this patient has an extremely complicated medical history. In April she was undergoing ACDF and had a cardiac arrest on the operating table. She reports having undergone CPR 4 times and had a stroke. She had a cardiac cath and a stent placed but was told that all of the stenting was not completed due to her fragile cardiac stent ultimately she had a tracheostomy and was discharged to rehab. Evidently during rehab stridor was identified and she was sent to emergency room who recommended an ENT evaluation. She was placed on an inhaler and an oral steroid. She has not followed up with her treating sfdc technical architect guest experience manager or neurologist. She was instructed to get referrals. Saul Singh MD [address] [place] [address], [facility] [address], [place], [address], [facility] 07/05/2023 11:23:39 OBGyn Episode No OBEpisode recorded.
--- OUTSIDE RECORDS SUMMARY | 2025-02-22 12:12 | XMS_ITS | Encounter Summary ---
Author Organization [facility] Address [address] [place] [phone] Phone Care Team Providers Care [employer]ured [employer] Maker Name Role Phone Yuliana Florez APN Unavailable Unavailab Damaso Chaudhari MD Primary Care Provider [phone] Michel Yanez APRN, SHELLFISH HARVESTER Unavailable [phone] Laureano Quigley MD Unavailable [phone] Elsa Kenny APRN, SHELLFISH HARVESTER Unavailable + [phone] Saurav Goyal MD Unavailable Homer Alcala MD Primary Care Provider [phone] Yuni Meneses SAIL FINISHER HAND Unavailable Unavailab Ayala Orozco APRN, CLIENT REPRESENTATIVE Unavailable + [phone] Encounter Details Date Type Department Care Team (Late st Contact Info) Description 07/12/2023 Telephone [facility] [address] [place] [address] Damaso Vazquez MD [address] [place] [address] Social History Tobacco Use Types Packs/Day Years [...] 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 on file Not on file Not on file documented as of this encounter Functional Status * BP Answer Date of Assessment Author DonnieCynthia 07/13/2023 2:31 PM CDT Starla Higgins RN documented as of this encounter Mental Status * BP Answer Entry Date Author [id number] 07/13/2023 2:31 PM CDT Starla Higgins RN documented in this encounter Miscellaneous Notes * Telephone Encounter - Lucy Anton, RN - 07/13/2023 12:46 PM CDT Closing this encounter see Nurse Triage 07/13/23 * Telephone Encounter - Nehal Meléndez - 07/12/2023 4:12 PM CDT RFC: Lisseth would like a nurse to call her back today she would like to discuss a change in medication due to what she is on now takes too long to start working . Please call Lisseth (relationship to patient self) back regarding above referenced patient. Patient's Provider is Damaso Vazquez MD . documented in this encounter Plan of Treatment Upcoming Encounters Date Type Department Care Team (Latest Contact Info) Description 03/03/2025 10:00 AM LEAD RECOVERER Office Visit [facility] - Orthopedic Surgery - [place] [address] [place] [address] Homer Alcala MD [address] [facility] [address] [place] [address] Ann Graham MD [address]2 [facility] [address] [place] [address] 03/04/2025 2:00 PM LEAD RECOVERER Office Visit [facility] Cardiology - [place] [address] [place] [address] Homer Alcala MD [address]2 [facility] [address] [place] [address] Carolin Sykes APRN, SHELLFISH HARVESTER 2 [facility] [address] [place] [address] 03/19/2025 10:15 AM LEAD RECOVERER Physical [facility] [address] [facility], [facility] [address] [place] [address] Sujata Winn, VISITOR SERVICES ASSOCIATE, SHELLFISH HARVESTER [address] [place] [address] Michelle Patel, PT [place] Discharge Disposition: Discharged to home or Selfcare 03/21/2025 1:30 PM LEAD RECOVERER [facility]rology - [place] [address] [place] [address] Ayala Weaver APRN, CLIENT REPRESENTATIVE [address] [place] [address] 04/29/2025 9:00 AM LEAD RECOVERER Office Visit [facility] Neurology - [place] [address] [place] [address] Ayala Weaver, VISITOR SERVICES ASSOCIATE, CLIENT REPRESENTATIVE [address] [place] [address] 05/09/2025 11:00 AM LEAD RECOVERER Office Visit [facility] Pulmonology & Sleep Medicine - [place] [address] [place] [address] Saurav Goyal MD [address] [place] [address] documented as of this encounter Goals Goal Patient Goal Type Associated Problems Recent Progress Patient-Stated? Author Depression Behavioral Health On track(2024 4:40 PM CDT) No Flora Yip LCSW Note: GOAL: Lisseth will manage depressive symptoms more effectively. Goal Reviewed with: patient today Readiness to change: Ready to change Department associated with goal: [facility] Steps to achieve goal: [...] Ready to change Department associated with goal: [facility] Steps to achieve goal: [...] Date Last Indicated Resolved Time COVID - 10/08/2023 10/08/2023 10/08/2023 11:4 0 AM CDT COVID - 04/05/2024 04/05/2024 04/05/2024 12:3 5 PM LEAD RECOVERER COVID - 05/19/2024 05/19/2024 05/19/2024 6:18 PM CDT Assessment Noted Time PHQ-9 Depression Total Score: 19 024 7:46 AM CDT documented as of this encounter Care Teams [employer]ured [employer] Maker Relationship Specialty Start Date End Date Damaso Vazquez MD PCP - General Family Medicine 05/28/20 08/31/23 Homer Alcala MD [address] [facility] [address] [place] [address] PCP - General Family Medicine 09/01/23 Yuliana Florez DOUBLE BASS PLAYER Advanced Practice Nurse 01/24/18 Michel Yanez APRN, SHELLFISH HARVESTER [address] [place] [address] Nurse Practitioner Advanced Practice Nurse 12/28/21 Laureano Quigley MD [address]2 [facility] [address] [place] [address] Consulting Physician Urology 02/04/22 Elsa Kenny, VISITOR SERVICES ASSOCIATE, SHELLFISH HARVESTER [address]2 [facility], [address] [place] [address] Nurse Practitioner Cardiology 07/14/23 09/17/24 Saurav Goyal MD [address] [place] [id number] Consulting Physician Pulmonary Disease 07/28/23 Yuni Meneses, SAIL FINISHER HAND [place] Document Control Associate Electric Crane Operator 11/27/23 12/04/23 Ayala Weaver, VISITOR SERVICES ASSOCIATE, CLIENT REPRESENTATIVE [address] [place] [address] Nurse Practitioner Neurology 12/18/23 documented as of this encounter
--- OUTSIDE RECORDS SUMMARY | 2025-02-22 12:12 | XMS_ITS | Encounter Summary ---
Author Organization [facility] Address [address] [place] [id number] Phone Care Team Providers Care Front Man Name Role Phone Yuliana Florez APN Unavailable Unavailab Michel Shepherd AUDIO VISUAL TECH, CLINICAL SCIENCE CONSULTANT Unavailable [phone] Laureano Quigley MD Unavailable [phone] Elsa Kenny AUDIO VISUAL TECH, CLINICAL SCIENCE CONSULTANT Unavailable + [phone] Saurav Goyal MD Unavailable Homer Alcala MD Primary Care Provider [phone] Yuni Meneses CAR PINCHER Unavailable Unavailab Ayala Orozco AUDIO VISUAL TECH, REAL ESTATE BROKER ASSOCIATE Unavailable + [phone] Reason for Visit * Reason Onset Date Comments Home Health Admission 09/13/2023 Encounter Details Date Type Department Care Team (Late st Contact Info) Description 09/13/2023 Telephone [facility] [address] [place] [address] Alpa Mueller, PT [place] Home Health Admission Social History Tobacco Use Types Packs/Day Years [...] 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 on file Not on file Not on file documented as of this encounter Functional Status * BP Answer Date of Assessment Author 122/78 09/15/2023 8:56 AM CDT Gela Huston rcia L, PAINTER SHIPYARD * Temp Answer Date of Assessment Author 97.5 09/15/2023 8:56 AM CDT Gela Huston rcia L, PAINTER SHIPYARD * Pulse Answer Date of Assessment Author 88 09/15/2023 8:56 AM CDT Gela Huston rcia L, PAINTER SHIPYARD * Resp Answer Date of Assessment Author 18 09/15/2023 8:56 AM CDT Gela Huston rcia L, PAINTER SHIPYARD * SpO2 Answer Date of Assessment Author 97 09/15/2023 8:56 AM CDT Gela Huston rcia L, PAINTER SHIPYARD documented as of this encounter Mental Status * BP Answer Entry Date Author 122/78 09/15/2023 8:56 AM CDT Gela Hustonia L, PAINTER SHIPYARD * Temp Answer Entry Date Author 97.5 09/15/2023 8:56 AM CDT Gela Huston rcia L, PAINTER SHIPYARD * Pulse Answer Entry Date Author 88 09/15/2023 8:56 AM CDT Gela Huston L, PAINTER SHIPYARD * SpO2 Answer Entry Date Author 97 09/15/2023 8:56 AM CDGela Ram PTA documented in this encounter Miscellaneous Notes * Telephone Encounter - Alpa Mueller, PT - 09/13/2023 11:58 AM CDT Patient was admitted to home health on this date. Will you follow and sign orders for PT/OT/MONEY COUNTER? Please advise. Also, patient is requesting a refill on Diflucan secondary to taking this new antibiotic. Please advise. Thank you. documented in this encounter Plan of Treatment Upcoming Encounters Date Type Department Care Team (Latest Contact Info) Description 03/03/2025 10:00 AM SENIOR SYSTEMS ENGINEER Office Visit [facility] - Orthopedic Surgery - [place] [address] [place] [address] Homer Alcala MD [address] [address] Ann Graham MD #[address] [place] [address] [address] 03/04/2025 2:00 PM SENIOR SYSTEMS ENGINEER Office Visit [facility] Cardiology [facility] [address] [place] [address] Homer Alcala MD #[address] [address] Carolin Sykes, GABRIEL, CLINICAL SCIENCE CONSULTANT 2 [facility] [address] [place] [address] 03/19/2025 10:15 AM SENIOR SYSTEMS ENGINEER Physical Therapy [facility] [address], [facility] [address] [place] [address] Sujata Winn, AUDIO VISUAL TECH, CLINICAL SCIENCE CONSULTANT [address] [place] [address] Michelle Patel, PT [place] Discharge Disposition: Discharged to home or Selfcare 03/21/2025 1:30 PM SENIOR SYSTEMS ENGINEER Office Visit [facility] Neurology - [place] [address] [place] [address] Ayala [place], AUDIO VISUAL TECH, REAL ESTATE BROKER ASSOCIATE [address] [place] [address] 04/29/2025 9:00 AM SENIOR SYSTEMS ENGINEER Office Visit [facility] Neurology [facility] [address] [place] [address] Ayala Weaver, AUDIO VISUAL TECH, REAL ESTATE BROKER ASSOCIATE [address] [facility] [place] [address] 05/09/2025 11:00 AM SENIOR SYSTEMS ENGINEER Office Visit [facility] Pulmonology & Sleep Medicine [facility] [address] [place] [address] Saurav Goyal MD [address] [place] [address] documented as of this encounter Goals Goal Patient Goal Type Associated Problems Recent Progress Patient-Stated? Author Depression Behavioral Health On track(2024 4:40 PM CDT) Flora Miller, MINERALOGY TEACHER Note: GOAL: Lisseth will manage depressive symptoms more effectively. Goal Reviewed with: patient today Readiness to change: Ready to change Department associated with goal: [facility] Steps to achieve [...] Ready to change Department associated with goal: [facility] Steps to achieve [...] 19 04/05/2024 04/05/2024 04/05/2024 12:3 5 PM SENIOR SYSTEMS ENGINEER COVID - 05/19/2024 05/19/2024 05/19/2024 6:18 PM CDT Assessment Noted Time PHQ-9 Depression Total Score: 19 024 7:46 AM CDT documented as of this encounter Care Teams Front Man Relationship Specialty Start Date End Date Homer Alcala MD [address] [address] PCP - General Family Medicine 09/01/23 Yuliana Florez APN Advanced Practice Nurse 01/24/18 Michel Yanez APRN, CLINICAL SCIENCE CONSULTANT [address] [place] [address] Nurse Practitioner Advanced Practice Nurse 12/28/21 Laureano Quigley MD [address] [place] [address] Consulting Physician Urology 02/04/22 Elsa Kenny, AUDIO VISUAL TECH, CLINICAL SCIENCE CONSULTANT [address] [facility] [address] [place] [address] Nurse Practitioner Cardiology 07/14/23 09/17/24 Saurav Goyal MD [address] [place] [address] Consulting Physician Pulmonary Disease 07/28/23 Yuni Meneses, [facility] Farm Management Agent Machine Tool Electrician 11/27/23 12/04/23 Ayala [place], AUDIO VISUAL TECH, REAL ESTATE BROKER ASSOCIATE [address] [place] [address] Nurse Practitioner Neurology 12/18/23 documented as of this encounter
--- OUTSIDE RECORDS SUMMARY | 2025-02-22 12:12 | XMS_ITS | Clinical Summary ---
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 This disclosure is being madepursuant to the Care Everywhere program and may not contain all information available regarding this patient. Last updated 17.[facility] Allergies Active Allergy Reactions Criticality Noted Date Comments Levofloxacin Other High 09/25/2018 Leg pain Morphine Itching,Rash Medium 12/10/2015 Tetracycline Nausea and/or Vomiting,GI Discomfort 09/25/2018 Medications * Be aware that medications may not be up to date on this document. Alwaysverify current medications with the patient. cyclobenzaprine (FLEXERIL) 10 MG tablet Take 1 (one) tablet by mouth nightly as needed 02/16/20 19 Active pantoprazole EC (PROTONIX) 40 MG tablet Take 1 (one) tablet by mouth once daily 03/31/19 21 Active atorvastatin (Lipitor) 40 MG tablet Take 1 (one) tablet by mouth at bedtime 05/16/19 24 Active clopidogrel (plaVIX) 75 MG tablet Take 1 (one) tablet by mouth once daily 05/17/19 24 Active traZODone (Desyrel) 50 MG tablet Take 1 (one) tablet by mouth at bedtime 05/16/19 24 Active hydrOXYzine HCl (Atarax) 50 MG tablet Take 1 (one) tablet by mouth 4 times daily as needed Active aspirin (Aspirin) 81 MG chew tablet Take 1 (one) tablet by mouth once daily 07/27/19 24 Active metoprolol succinate XL 24hr (Toprol XL) 25 MG tablet Take 1 (one) tablet by mouth once daily 07/27/19 24 Active levothyroxine (Synthroid) 100 MCG tablet Take 1 (one) tablet by mouth once daily 07/28/19 24 Active albuterol-ipratro pium (Duo-Neb) 0.5-2.5 (3) MG/3ML nebulizer solution Inhale 3 mL by mouth 4 times daily 08/08/19 24 Active albuterol HFA (Proventil; Ventolin; Proair) 108 (90 Base) MCG/ACT inhaler INHALE TWO (2) (TWO) PUFFS BY MOUTH EVERY SIX (6) HOURS NEEDED 18 g 2 10/23/19 24 Active levETIRAcetam (Keppra) 500 MG tablet Take 1 (one) tablet by mouth 2 times daily 10/19/19 24 Active ondansetron, disintegrating, (Zofran ODT) 4 MG tablet Take 1 (one) tablet by mouth every 8 hours as needed for nausea/vomiting 10/10/19 24 Active citalopram (CeleXA) 10 MG tablet Take 1 (one) tablet by mouth once daily 10/06/19 24 Active TRUEplus 5-Bevel Pen [place] 31G X 8 MM needle 1 (one) Each by Injection route once daily 02/06/20 24 Active cetirizine (ZyrTEC) 10 MG tabletIndications :Chronic nasal congestion Take 1 (one) tablet by mouth at bedtime 90 tablet 1 02/08/20 24 Active dexAMETHasone (Decadron) 4 MG tablet Take 1 (one) tablet by mouth 2 times daily 04/29/19 25 Active montelukast (Singulair) 10 MG tablet Take 1 (one) tablet by mouth at bedtime Active bisacodyl EC (Dulcolax) 5 MG tablet Take 4 tablets orally at noon 2 days before your colonoscopy. Take 4 tablets orally at noon the day before your colonoscopy 8 tablet 10/16/19 25 Active polyethylene glycol (Golytely) solution Drink half of prep solution at 5pm the night before colonoscopy. Finish the prep at 4am the day of test. 4000 mL 10/16/19 25 Active dulaglutide (Trulicity) 0.75 MG/0.5ML injection Inject 0.75 (three-quarters) mg subcutaneously 11/15/19 25 Active liraglutide (Victoza) 18 MG/3ML pen Inject 1.8 mg subcutaneously once daily Active multivitamin daily tablet Take 1 (one) tablet by mouth daily with food Active guaiFENesin ER 12hr (Mucinex) 600 MG tabletIndications :Chronic nasal congestion Take 2 (two) tablets by mouth every 12 hours 180 tablet 3 12/17/19 25 Active clonazePAM (KlonoPIN) 0.5 MG tablet Take 1 (one) tablet by mouth at bedtime Active pregabalin (Lyrica) 100 MG capsule Take 1 (one) capsule by mouth once daily Active pregabalin (Lyrica) 200 MG capsule Take 1 (one) capsule by mouth at bedtime Active buprenorphine (Butrans) 10 MCG/HR patch Apply 1 (one) patch to skin every 7 days (once a week) Active budesonide (Pulmicort) 0.5 MG/2ML nebulizer suspension Mix one vial in 90-120 cc of salt water. Irrigate half into each nostril two times / day 120 mL 11 02/19/20 25 Active clonazePAM (KlonoPIN) 1 MG tablet Take 0.5 (one-half) tablet by mouth at bedtime Patient taking 0.5 mg daily 07/10/19 24 2024 Discontin ued(List Clean-Up) HYDROcodone-aceta minophen (Quinlan) 7.5-325 MG tablet Take 1 (one) tablet by mouth every 6 hours as needed for Pain 2024 Discontin ued(List Clean-Up) pregabalin (Lyrica) 150 MG capsule Take 1 (one) capsule by mouth 2 times daily 2024 Discontin ued(List Clean-Up) tirzepatide (Mounjaro) 2.5 MG/0.5ML injection Inject 2.5 (two and one-half) mg subcutaneously every 7 days (once a week) 02/20/20 24 2024 Discontin ued(List Clean-Up) amoxicillin-clavu lanate (Augmentin) 875-125 MG tablet Take 1 (one) tablet by mouth 2 times daily with morning and evening meal for 10 days 20 tablet 01/21/20 25 2024 Discontin ued(Reord er) fluconazole (Diflucan) 150 MG tabletIndications :Candidal vulvovaginitis Take 1 (one) tablet by mouth every 7 days (once a week) 2 tablet 01/21/20 25 2024 Discontin ued(Reord er) buprenorphine (Butrans) 5 MCG/HR patch Apply 1 (one) patch to skin 2024 Discontin ued(List Clean-Up) amoxicillin-clavu lanate (Augmentin) 875-125 MG tablet Take 1 (one) tablet by mouth 2 times daily with morning and evening meal for 5 days 10 tablet 02/05/20 25 2024 fluconazole (Diflucan) 100 MG tabletIndications :Candidal vulvovaginitis Take 1 (one) tablet by mouth once for 1 dose 1 tablet 02/05/20 25 2024 Active Problems Problem Noted Date Diagnosed Date Seizures 02/14/2025 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 Patient reports that she sees a counselor at [facility] and plan on making an appt soon. No recent mental health visit. Advised to follow up Medications: Taking medications as prescribed If taking medications, do not stop treatment without consulting healthcare provider. If symptoms worsen or do not improve/stabilize, notify health care provider right away. If thoughts of harming self or others notify health care provider immediately &/or seek urgent/emergent care including calling Suicide Hotline ( ) or 911. Follow up in one month with Psychologist/Counselor/SupportGroup/Psychiatrist Environmental and seasonal allergies 04/14/2021 03/07/2023 Overview (03/07/2023): Last Assessment & Plan: Condition: stable Patient reports environmental/seasonal allergies. Patient is unsure of what the triggers are but reports they well managed. Patient reports medication compliance and reports less symptoms with medications. Patient advised to keep all scheduled appointments. Follow up in: six months Essential hypertension 04/14/2021 Overview (03/07/2023): Last Assessment & Plan: Condition: stable Discussed target blood pressure. Continue medication as prescribed from PCP/specialist. Take medications at the same time every day. Lifestyle modification advised: DASH diet, reduce stress/anxiety, discussed health weight management, activity as tolerated or advised from PCP, try to avoid alcohol and nicotine. Follow up in: six months Chronic bilateral low back pain with bilateral s ciatica 04/14/2021 03/07/2023 Overview (03/07/2023): Last Assessment & Plan: Condition: symptomatic Take pain medication as prescribed. Practice non-pharmacological pain reduction techniques/interventions such as, deep breathing exercises, massage, gel packs, if indicated to be safe by PCP. Monitor for worsening of back pain in combination with other signs and symptoms of worsening disease and see PCP as soon as possible. Follow up in: three months Candidiasis of esophagus 04/14/2021 024 Overview (03/07/2023): Last Assessment & Plan: Condition: stable Continue medications as prescribed and follow up with PCP/specialist as scheduled. Follow up in: one month Generalized anxiety disorder 04/14/202104/2023 Overview (03/07/2023): Last Assessment & Plan: Condition: stable CATA-7 Score: 11 Continue medications as prescribed. Educated patient on non-pharmacological methods to control anxiety such as deep breathing, meditation, exercise, and writing in a journal. Advised patient to follow-up with PCP. Follow up in: one month Herpes simplex 04/14/2021 03/07/2023 Overview (03/07/2023): Last Assessment & Plan: Condition: asymptomatic Patient is asymptomatic at this visit. Continue medications as prescribed as needed for outbreaks and follow up with PCP/specialist as scheduled. Follow up in: six months Last Assessment & Plan: Condition: asymptomatic Patient is asymptomatic at this visit. Continue medications as prescribed as needed for outbreaks and follow up with PCP/specialist as scheduled. Follow up in: six months Mild intermittent asthma without complication 03/07/2023 Overview (03/07/2023): Last Assessment & Plan: Condition: stable Reviewed trigger avoidance and reviewed proper use of inhalers and rescue medications. Reviewed concerning signs/symptoms and ER precautions. Follow up in: six months Nausea 04/14/2021 03/07/2023 Overview (03/07/2023): Last Assessment & Plan: Condition: stable Patient is asymptomatic at this visit. Continue medications as prescribed and follow up with PCP/specialist as scheduled. Follow up in: six months Nicotine vapor product user 04/14/202104/2023 Overview (03/07/2023): Last Assessment & Plan: Condition: stable Patient vapes nicotine daily. Discussed smoking cessation, immunizations and increasing exercise activity; risk of Lung Cancer, COPD, PAD, Stroke, Heart Attack and . Discussed pharmaceutical and non-pharmaceutical options to quit. Member advised to keep all scheduled appointments. Follow up in: six months Lupus (systemic lupus erythematosus) 04/14/2021 03/07/2023 Overview (03/07/2023): Last Assessment & Plan: Condition: stable Follow up with PCP/Specialist as scheduled. Follow up in: three months Melanotic macule of lip 04/13/2021 Multiple benign melanocytic nevi of upper extremity, lower extremity, and trunk 04/13/2021 Solar lentiginosis 04/13/2021 Mixed hyperlipidemia 07/01/2020 03/07/2023 Overview (03/07/2023): Last Assessment & Plan: Condition: stable Discussed with patient behavior modifications to include choosing healthier options for foods and avoiding foods fast foods or foods that are fried, high in trans fats or preservatives. Patient encouraged to maintain medication compliance and to increase their current level of exercise activity to 3- 4 times weekly. Patient verbalized understanding and advised to keep all scheduled appointments. Follow up in: six months Degeneration of lumbar intervertebral disc 01/1103/07/2023 Overview (03/07/2023): Last Assessment & Plan: Condition: stable Take pain medication as prescribed. Monitor for worsening of pain in combination with other signs and symptoms of worsening disease and see PCP as soon as possible. Follow up in: three months Gastroesophageal reflux disease 01/26/2018 03/07/2023 Overview (03/07/2023): Last Assessment & Plan: Condition: stable Reviewed use of antacid medication and/or diet modifications of decreasing caffeine, spicy foods, chocolate, and avoiding alcohol, tobacco, NSAIDs, and reducing citrus acids. Follow up in: six months Hypothyroidism 01/26/2018 03/07/2023 Overview (03/07/2023): Last Assessment & Plan: Condition: stable THYROID STIMULATING HORMONE (TSH) Component Ref Range & Units 06/04/20 1306 TSH 0.270 - 4.200 mIU/L 0.376 Patient reports compliance with prescribed medication. Patient denies the following symptoms: weight gain, bradycardia, fatigue, developing coarse or thin hair, cold intolerance or constipation etc. Patient encouraged to keep all scheduled appointments. Follow up in: six months Arthritis of left knee 12/21/2017 Overview (11/08/2018): Last Assessment & Plan: Patient does have underlying fibromyalgia with moderate arthritis of the knee. Her most pronounced symptoms are in the patellofemoral region. After reviewing the treatment options patient elected undergo a cortisone injection which was given today through a sterile field. She tolerated the procedure well. The long-term weight loss would likely be beneficial. Overview: Last Assessment & Plan: Patient was found to have degenerative fraying of the meniscus but no erik tears by MRI. She does have some reactive synovitis of the knee may benefit from cortisone. After reviewing the treatment options patient elected undergo a shot. She may find a knee sleeve helpful as well as elevation and ice packs Overview: Last Assessment & Plan: Patient does have underlying fibromyalgia with moderate arthritis of the knee. Her most pronounced symptoms are in the patellofemoral region. After reviewing the treatment options patient elected undergo a cortisone injection which was given today through a sterile field. She tolerated the procedure well. The long-term weight loss would likely be beneficial. Elevated liver function tests 02/01/2017 Vitamin D deficiency 01/23/2017 03/07/2023 Overview (03/07/2023): Last Assessment & Plan: Condition: stable VITAMIN D, 25 HYDROXY TOTAL Component Ref Range & Units 09/16/20 1402 VITAMIN D, 25 HYDROX >=30 ng/mL 45 Follow up with PCP/Specialist as scheduled. Follow up in: six months Restless leg syndrome 01/23/2017 03/07/2023 Overview (03/07/2023): Last Assessment & Plan: Condition: stable Patient is asymptomatic at this visit. Continue medications as prescribed and follow up with PCP/specialist as scheduled. Follow up in: six months Shortness of breath 01/08/2016 Marijuana use 12/03/2015 03/07/2023 Overview (03/07/2023): Last Assessment & Plan: Condition: stable Patient reports daily medical marijuana use. Follow up with PCP/Specialist as scheduled. Follow up in: six months Arthralgia of multiple joints 07/20/2013 Overview (11/08/2018): Overview: Multiple joint pain Last Assessment & Plan: - add meloxicam for joint pains Overview: Overview: Multiple joint pain Last Assessment & Plan: - add meloxicam for joint pains Depression 07/20/2013 Overview (11/08/2018): Overview: DEPRESSIVE DISORDER NEC Overview: Overview: DEPRESSIVE DISORDER NEC Fibromyalgia 12/27/2011 03/07/2023 Overview (03/07/2023): Last Assessment & Plan: Condition: stable Continue medications as prescribed and follow up with PCP/specialist as scheduled. Follow up in: six months Last Assessment & Plan: Condition: stable Continue medications as prescribed and follow up with PCP/specialist as scheduled. Follow up in: six months Resolved Problems Problem Noted Date Diagnosed Date Resolved Date Lupus 11/08/2018 02/08/2024 Encounters Date Type Department Care Team Description 02/21/2025 Telephone [facility] - Otol[facility]ology [address] [place] [place] [place] [phone] Antonino Ojeda MD Sinus Problem 02/17/2025 10:33 AM DOZER OPERATOR - 02/21/2025 1:04 PM DOZER OPERATOR Hospital Encounter [facility] 7S TELE/NEURO [address] [address] Tato Guzman MD Tahir, Danial, MD Hospitalist Discharge Disposition: Home or Self Care 02/17/2025 9:30 AM DOZER OPERATOR Office Visit [facility] - Otol[facility]ology [address] [place] [phone] Antonino Ojeda MD Tracheal stenosis (Primary Dx); Chronic nasal congestion; Nasal septal perforation; Intranasal synechiae 02/17/2025 Travel 02/14/2025 Orders Only [facility] [address] [place] [address] Kelly Manley Generalized-onset seizures (HCC) 02/04/2025 Orders Only [facility] - ENT [address] [place] [phone] Magno Waite RN Candidal vulvovaginitis 01/24/2025 2:30 PM DOZER OPERATOR Clinical Support [facility] - Ophthalmology [address] [place] [phone] Audrey Mishra, OD History of stroke (Primary Dx) 01/24/2025 1:30 PM DOZER OPERATOR Office Visit [facility] - Ophthalmology [address] [place] [phone] Audrey Mishra, OD History of stroke (Primary Dx); Bilateral dry eyes; Nuclear sclerosis of both eyes; Presbyopia of both eyes 01/24/2025 Travel 12/31/2024 Travel 12/25/2024 Travel 12/16/2024 10:30 AM CDT Office Visit [facility] Ot[facility] [address] [place] [phone] Antonino Ojeda MD Tracheal stenosis (Primary Dx); Chronic nasal congestion; Solar lentiginosis; Melanotic macule of lip; Systemic lupus erythematosus, unspecified SLE type, unspecified organ involvement status (HCC); Vision changes; Nasal septal perforation; Intranasal synechiae; Muscle tension dysphonia 12/16/2024 Travel 11/28/2024 9:46 AM CDT - 11/28/2024 11:59 PM CDT Hospital Encounter [facility] - Outside Imaging Discharge Disposition: Home or Self Care 11/28/2024 9:31 AM CDT - 11/28/2024 9:45 AM CDT Hospital Encounter [facility] - Outside Imaging Discharge Disposition: Home or Self Care from Last 3 Months Immunizations Immunization Administration Dates Next Due INFLUENZA VACCINE, TRIV. (AF LURIA, FLUZONE TRIVALENT; 6MO+) (IIV3) 12/17/2024,12/04/2013,11/04/2012,2007 Covid Moderna booster monova lent 6y-11yr 0.5ml 02/17/2021 Covid Moderna primary monova lent 12+ yr 0.5mL 02/17/2021 FLU VACCINE QUAD IIV4 SPLIT 0.25 ML IM 12/05/2017,01/23/2017,01/19/2016 FLU VACCINE TRI IIV3 SPLIT P F IM (FLUVIRIN) 12/21/2024,11/28/2023,01/04/2018,2010,01/12/2010 HIB VACCINE 03/10/2021,,12/04/2013,2012,12/23/2007 INFLUENZA VACCINE 03/10/2021 INFLUENZA VACCINE, CELL CULT URE, TRIV. (FLUCELVAX TRIVALENT; 6MO+), 0.5 ML (CCIIV3) 01/08/2020 INFLUENZA VACCINE, QUADR. (A FLURIA, FLUZONE QUADRIVALENT; 6MO+) (IIV4) 12/20/2010,01/12/2010 INFLUENZA VACCINE, QUADR. (F LUZONE; FLULAVAL; FLUARIX; AFLURIA QUADRIVALENT; 6MO+), 0.5 ML (IIV4) 05/03/2023,02/17/2021,01/08/2020,2018,01/04/2018,12/05/2017,01/23/2017 Influenza Intradermal 01/01/2015 PNEUMOCOCCAL PCV20 CONJ VAC IM 05/03/2023 TD (ADULT), 5 LF TETANUS TOX OID, ADSORBED, PF 03/24/2008 TDAP, HISTORIC VACCINE 05/03/2023,06/20/2022 Td (Adult), 2 Lf Tetanus Tox oid, Adsorbed, Pf 03/24/2008,03/24/2008,03/24/2008 Zoster Hzv Vacc Recombinant Inj Im 02/02/2022, Family History Medical History Relation Name Comments None Known Brother None Known Father None Known Maternal Aunt None Known Maternal Grandfather None Known Maternal Grandmother None Known Maternal Uncle None Known Mother Asthma Other None Known Paternal Aunt None Known Paternal Grandfather None Known Paternal Grandmother None Known Paternal Uncle None Known Sister CVA Neg Hx Cancer - Breast Neg Hx Cancer - Other Neg Hx Cancer - Skin, Melanoma Neg Hx Cancer - Skin, Non Melanoma Neg Hx Eczema Neg Hx Hemophilia Neg Hx Psoriasis Neg Hx Relation Name Status Comments Brother Father Maternal Aunt Maternal Grandfather Maternal Grandmother Maternal Uncle Mother Other Paternal Aunt Paternal Grandfather Paternal Grandmother Paternal Uncle Sister Social History Tobacco Use Types Packs/Day Years Used Date Smoking Tobacco: Former Cigarettes 0 Q uit: 12/04/2022 Passive Smoke Exposure: Never Smokeless Tobacco: Never Tobacco Cessation:Counseling Given: Not Answered Alcohol Use Standard Drinks/Week Comments Not Currently [...] your partner or ex-partner? Patient declined 02/17/2025 [facility] - Occupational Stress [...] any time in the past 12 m [facility], were you homeless or living in a [facility] (including now)? Patient declined 02/17/2025 [facility] Utilities Answer Date Recorded In the past 12 months has th e electric, gas, oil, or water company threatened to shut off services in your home? 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 Not on file Not on file Last Filed Vital Signs Vital Sign Reading Time Taken Comments Blood Pressure 144/87 02/21/2025 8:24 AM DOZER OPERATOR Pulse 70 02/21/2025 8:24 AM DOZER OPERATOR Temperature 37.2 C (99 F) 02/21/2025 8:24 AM DOZER OPERATOR Respiratory Rate 20 02/21/2025 8:24 AM DOZER OPERATOR Oxygen Saturation 95% 02/21/2025 8:24 AM DOZER OPERATOR Inhaled Oxygen Concentration - - Weight 69.4 kg (153 lb) 02/17/2025 9:18 AM DOZER OPERATOR Height 162.6 cm (5' 4) 02/17/2025 9:18 AM DOZER OPERATOR Body Mass Index 26.26 02/17/2025 9:18 AM DOZER OPERATOR Plan of Treatment Upcoming Encounters Date Type Department Care Team (Late st Contact Info) Description 03/05/2025 2:30 PM DOZER OPERATOR Office Visit [facility] - Dermatology [address] [place] [phone] Andrew Suarez MD [address] [place] [address] 3 [place] [phone] 05/30/2025 1:00 PM CDT Hospital Encounter [facility] ENDOSCOPY [address] [place] [address] Ale Parrish MD [address] [place] [phone] Surgery General 05/30/2025 1:00 PM CDT - 05/30/2025 1:45 PM CDT Surgery [facility] ENDOSCOPY [facility] [place] [address] Ale Parrish MD [address] [place] [phone] COLONOSCOPY SCREEN---PAT prior 12/15/2025 9:30 AM CDT Appointment [facility] Health Imaging Services - [place] Scan [address] [place] [address] Antonino Ojeda MD [address] [place] [address] [address] [place] [phone] 12/15/2025 10:30 AM CDT Office Visit [facility] [address] [place] [address] Antonino Ojeda MD [address] [facility] [address] [place] [address] Scheduled Procedures Name Priority Associated Diagnoses Date/Ti me COLONOSCOPY SCREEN Screen for colon cancer 05/30/2025 1:00 PM CDT Health Maintenance Due Date Last Done Comments COLOGUARD (AGES 45-75) - COLON CA SCREENING 1968 COLON MONITORING 1968 COLONOSCOPY - COLON CA SCREENING 1968 CT COLONOGRAPHY - COLON CA SCREENING 1968 Colorectal Cancer Screening 1968 FIT - COLON CA SCREENING 1968 FLEX SIG - COLON CA SCREENING 1968 HIV SCREENING 06/12/1983 HEPATITIS C SCREENING 06/07/1986 HEPATITIS B VACCINE (1 of 3 - 19+ 3-dose series) 06/12/1987 COVID-19 VACCINE ( season) 2024 02/02/2022, 02/17/2021, 02/17/2021, Additional history exists MAMMOGRAM 02/07/2027 02/07/2025, 07/2024, 01/26/2024, Additional history exists SCREENING FOR DIABETES 02/20/2028 , 02/17/2025, 07/17/2023, Additional history exists DTAP/TDAP/TD VACCINES (4 - Td or Tdap) 05/03/2033 05/03/2023, 06/20/2022, 03/24/2008, Additional history exists HIB VACCINE Aged Out 03/10/2021, 06/2019, 12/04/2013, Additional history exists No longer eligible based on patient's age to complete this topic ZOSTER VACCINE Completed 02/02/2022, 06/19/2021 PNEUMOCOCCAL VACCINE 50+ Completed 05/03/2023 INFLUENZA VACCINE Completed 12/21/2024, , 11/28/2023, Additional history exists DEPRESSION SCREENING Completed 01/24/2025 HPV VACCINE Aged Out No longer eligi ble based on patient's age to complete this topic MENINGOCOCCAL (Group B) VACCINE SHARED DECISION-MAKING Aged Out No longer eligible based on patient's age to complete this topic MENINGOCOCCAL GROUPS A/C/Y/W VACCINE Aged Out No longer eligible based on patient's age to complete this topic Goals Goal Patient Goal Type Associated Problems Recent Progress Patient-Stated? Author Medication Management General Yue Hensley, RN Note: Expected end date: ongoing Interventions: Take all medications as prescribed Medical Devices Implanted Type Area Convex Grinder Operator Device Identifier Shelf Expiration Date Model / Serial / Lot Spinal Cord Stimulator-01/21 Implanted:2021 (Quantity not on file) [employer] [id number] / [id number] / Procedures Procedure Name Priority Date/Time Associated Diagnosis Comments COMPREHENSIVE METABOLIC PANEL Routine 02/19/2025 11:02 AM DOZER OPERATOR CBC W AUTO DIFFERENTIAL Routine 02/19/2025 11:02 AM DOZER OPERATOR EKG 12-LEAD Routine 02/19/2025 10:45 AM DOZER OPERATOR Seizures (HCC) EKG 12-LEAD Routine 02/19/2025 10:43 AM DOZER OPERATOR Seizures (HCC) HOME CPAP/BIPAP FOR HOSP USE: NOCTURNAL 02 Routine 02/19/2025 12:01 AM DOZER OPERATOR HOME CPAP/BIPAP FOR HOSP USE: NOCTURNAL 02 Routine 02/18/2025 2:15 AM DOZER OPERATOR COMPREHENSIVE METABOLIC PANEL STAT 02/17/2025 11:37 AM DOZER OPERATOR CBC W AUTO DIFFERENTIAL STAT 02/17/2025 11:37 AM DOZER OPERATOR MERCHANT AUTO VISUAL FIELD EXTENDED Routine 01/24/2025 2:28 PM DOZER OPERATOR History of stroke CT CHEST OUTSIDE Routine 11/25/2024 9:[address] SINUS OUTSIDE Routine 11/25/2024 9:45 AM CDT IMAGING/RADIOLOGY/XRAY RESULTS ORDER 11/25/2024 from Last 3 Months Results * CBC W AUTO DIFFERENTIAL (02/19/2025 11:02 AM DOZER OPERATOR) Only the most recent of2 resultswithin the time period is included. WBC 7.6 4.0 - 10.7 x10E9/L 02/19/2025 11:19 AM [facility] RBC Count 4.83 3.90 - 5.20 x10E12/L 02/19/2025 11:19 AM [facility] Hemoglobin 13.5 11.9 - 15.8 g/dL 02/19/2025 11:19 AM [facility] Hematocrit 39.9 34.8 - 46.1 % 02/19/2025 11:19 AM [facility] MCV 82.6 80.0 - 98.0 fL 02/19/2025 11:19 AM [facility] MCH 28.0 26.7 - 33.6 pg 02/19/2025 11:19 AM [facility] MCHC 33.8 31.7 - 36.3 g/dL 02/19/2025 11:19 AM [facility] RDW-CV 14.1 11.3 - 14.8 % 02/19/2025 11:19 AM [facility] Platelet Count 253 150 - 420 x10E9/L 02/19/2025 11:19 AM [facility] MPV 10.6 7.8 - 11.4 fL 02/19/2025 11:19 AM [facility] Neutrophil % 59.2 41.0 - 74.0 % 02/19/2025 11:19 AM [facility] Lymphocyte % 33.2 17.0 - 47.0 % 02/19/2025 11:19 AM [facility] Monocyte % 6.1 3.0 - 11.0 % 02/19/2025 11:19 AM [facility] Eosinophil % 0.9 0.0 - 7.0 % 02/19/2025 11:19 AM [facility] Basophil % 0.3 0.0 - 1.6 % 02/19/2025 11:19 AM [facility] Immature Granulocytes % 0.3 0.0 - 1.0 % 02/19/2025 11:19 AM [facility] Neutrophil Absolute 4.50 1.60 - 7.50 x10E9/L 02/19/2025 11:19 AM [facility] Lymphocyte Absolute 2.52 1.00 - 4.40 x10E9/L 02/19/2025 11:19 AM [facility] Monocyte Absolute 0.46 0.15 - 1.00 x10E9/L 02/19/2025 11:19 AM [facility] Eosinophil Absolute 0.07 0.00 - 0.60 x10E9/L 02/19/2025 11:19 AM [facility] Basophil Absolute 0.02 0.00 - 0.13 x10E9/L 02/19/2025 11:19 AM [facility] Blood BLOOD SPECIMEN / Unknown Venipuncture / Unknown 02/19/2025 11:02 AM DOZER OPERATOR 02/19/2025 11:13 AM [facility] Aaron Roman MD LAB - HEMATOLOGY ORDERABLES Estrellita l Result [facility] [address] [place] [address] * (ABNORMAL) COMPREHENSIVE METABOLIC PANEL (02/19/2025 11:02 AM [facility]) Only the most recent of2 resultswithin the time period is included. Glucose 97 70 - 99 mg/dL 02/19/2025 11:36 AM [facility] Sodium 141 136 - 145 mmol/L 02/19/2025 11:36 AM [facility] Potassium 4.4 3.5 - 5.1 mmol/L 02/19/2025 11:36 AM [facility] Chloride 110(H) 98 - 107 mmol/L 02/19/2025 11:36 AM [facility] CO2 21(L) 22 - 29 mmol/L 02/19/2025 11:36 AM [facility] Calcium 9.1 8.4 - 10.4 mg/dL 02/19/2025 11:36 AM [facility] Anion Gap 10 6 - 16 mmol/L 02/19/2025 11:36 AM [facility] BUN 12 7 - 26 mg/dL 02/19/2025 11:36 AM [facility] Creatinine 0.82 0.50 - 1.10 mg/dL 02/19/2025 11:36 AM DOZER OPERATOR [facility] Alkaline Phosphatase 113 40 - 150 U/L 02/19/2025 11:36 AM DOZER OPERATOR [facility] ALT 26 6 - 57 U/L 02/19/2025 11:36 AM DOZER OPERATOR [facility] AST 44 10 - 48 U/L 02/19/2025 11:36 AM DOZER OPERATOR [facility] Protein Total 7.6 6.4 - 8.3 gm/dL 02/19/2025 11:36 AM DOZER OPERATOR [facility] Albumin 4.1 3.1 - 4.5 gm/dL 02/19/2025 11:36 AM DOZER OPERATOR [facility] Bilirubin Total 0.4 0.2 - 1.2 mg/dL 02/19/2025 11:36 AM DOZER OPERATOR [facility] eGFR by CKD-EPI 84(L) >=90 mL/min/1.7 3 m2 02/19/2025 11:36 AM DOZER OPERATOR [facility] Comment:Estimated Glomerular Filtration Rate (eGFR) calculated using the CKD-EPI Creatinine Equation (2020), per the National Kidney Foundation and [place] [employer] of Nephrology recommendations. Blood BLOOD SPECIMEN / Unknown Venipuncture / Unknown 02/19/2025 11:02 AM DOZER OPERATOR 02/19/2025 11:13 AM DOZER OPERATOR us Aaron Roman MD LAB - CHEMISTRY ORDERABLES Final Result [facility] [address] [place] [address] * EKG 12-LEAD (02/19/2025 10:45 AM DOZER OPERATOR) Only the most recent of2 resultswithin the time period is included. Ventricular Rate 67 BPM [facility] Atrial Rate 67 BPM [facility] P-R Interval 170 ms [facility] QRS Duration ms 132 ms [facility] Q-T Interval ms 458 ms [facility] QTC Calculation (Bezet) 483 ms [facility] Calculated P [place] 40 degrees [facility] Calculated R [place] 59 degrees [facility] Calculated T [place] 24 degrees [facility] Interpretation EKG Normal sinus rhythm Non-specific intra-ventricu lar conduction block When compared with ECG of 19-FEB-2025 10:43, No significant change was found Confirmed by CONNIE COHN, CHIKI MARTINEZ ([id number]) on 02/21/2025 8:15:47 AM [facility] MUSE 02/19/2025 10:4 5 AM DOZER OPERATOR 02/21/2025 8:15 AM DOZER OPERATOR us Tato Guzman MD ECG ORDERABLES Edited Resul t - Final Performing Organization Address City/[facility] Co de Phone Number [facility] * MERCHANT AUTO VISUAL FIELD EXTENDED (01/24/2025 2:28 PM DOZER OPERATOR) Anatomical Region Laterality Modality Head External-Camera Photography Narrative 01/24/2025 3:04 PM DOZER OPERATOR Images from the original result were not included. Temporal defect OD, nasal defect OS us Audrey Said OD OPHTHALMOLOGY SCHED ORD W PACS F inal Result * CT Chest Outside (11/25/2024 9:47 AM CDT) Narrative [facility] RADIOLOG[facility] - 11/28/2024 9:48 AM CDT This is a study from an outside facility that has been uploaded into PACS. us Provider [employer] IMAGING Final Result Performing Organization Address [facility] Co de Phone Number [facility] RAD[facility]OLOG[facility] * CT Sinus Outside (11/25/2024 9:45 AM CDT) Narrative [facility] - 11/28/2024 9:46 AM CDT This is a study from an outside facility that has been uploaded into PACS. us Provider [employer] IMAGING Final Result Performing Organization Address [facility] Co de Phone Number [facility] * IMAGING/RADIOLOGY/XRAY RESULTS ORDER (11/25/2024) Anatomical Region Laterality Modality Other 11/25/2024 Narrative 11/25/2024 Ordered by an unspecified provider. us Scanned Document IMAGING Final Result from Last 3 Months Insurance MEDICAID - [place] Advance Directives * Full Code (Latest Code Status on File) Date Activated Date Inactivated Comments 02/17/2025 11:00 AM 02/21/2025 2:09 PM * Full Code Date Activated Date Inactivated Comments 07/18/2023 11:40 AM 07/19/2023 3:03 PM Care Teams Hot Plate Plywood Press Operator Relationship Specialty Start Date End Date Homer Alcala MD [address] [address] PCP - General Family Medicine 01/08/24
--- OUTSIDE RECORDS SUMMARY | 2025-02-22 12:12 | XMS_ITS | Encounter Summary ---
Author Organization [facility] Address [address] [place] [address] Phone Care Team Providers Care Support Services Manager Name Role Phone Yuliana Florez APN Unavailable Unavailab Michel Shepherd APRN, SENIOR DIRECTOR OF STRATEGY Unavailable [phone] Laureano Quigley MD Unavailable [phone] Saurav Goyal MD Unavailable Homer Alcala MD Primary Care Provider [phone] Ayala Weaver APRN, FINANCE LECTURER Unavailable + [phone] Reason for Visit * Reason Comments Medication Refill Encounter Details Date Type Department Care Team (Late st Contact Info) Description 11/13/2024 Refill [facility] Medical [facility] [address] [place] [phone] Homer Alcala MD [address] [address] Medication Refill Social History Tobacco Use Types Packs/Day Years Used Date Smoking Tobacco: Former Cigarettes 0 Q uit: 03/13/1988 Smokeless Tobacco: Never Alcohol Use Standard Drinks/Week Comments Not Currently 0 (1 standard drink = 0.6 oz pur e alcohol) seldom [facility] Utilities Answer Date Recorded In the past 12 months has e clipkit, gas, oil, or water [employer] threatened to shut off services in your home? Patient declined 04/16/2024 Social Connection and Isolation Panel Answer Date Recorded In a typical week, how many times do you talk on the phone with family, friends, or neighbors? Patient declined 04/16/2024 How often do you get togethe r with friends or relatives? Patient declined 04/16/2024 How often do you attend nondenominational or cheondoism serv ices? Patient declined 04/16/2024 Do you belong to any clubs o r organizations such as nondenominational groups, unions, fraternal or athletic groups, or [...] Recorded Total Score - Questions 1-9 0 /2 [facility] [place] of Occupat ional Health - Occupational Stress [...] were you homeless or living in a group home (including now)? 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 [address] [place] [address] 03/04/2025 2:00 PM RN COMPLIANCE [facility] [place] [address] [place] [phone] Homer Alcala MD [address]2 [facility] [address] [place] [address] Carolin Sykes, ENVIRONMENTAL MARKETING REPRESENTATIVE, SENIOR DIRECTOR OF STRATEGY 2 [facility] [address] [place] [address] 03/19/2025 10:15 AM RN COMPLIANCE Physical Therapy [facility] [address] [facility] [address] [place] [address] Sujata Winn, ENVIRONMENTAL MARKETING REPRESENTATIVE, SENIOR DIRECTOR OF STRATEGY [address] [place] [address] Michelle Patel, PT [place] Discharge Disposition: Discharged to home or Selfcare 03/21/2025 1:30 PM RN [facility]ANCE [facility] [place] [address] [place] [phone] Ayala Weaver, ENVIRONMENTAL MARKETING REPRESENTATIVE, FINANCE LECTURER [address] [place] [address] 04/29/2025 9:00 AM RN COMPLIANCE [facility] [place] [address] [place] [phone] Ayala Weaver, ENVIRONMENTAL MARKETING REPRESENTATIVE, FINANCE LECTURER [address] [place] [address] 05/09/2025 11:00 AM RN COMPLIANCE Office Visit [facility] - Pulmonology & Sleep Medicine - [place] [address] [place] [address] Saurav Goyal MD [address] [place] [address] documented as of this encounter Goals Goal Patient Goal Type Associated Problems Recent Progress Patient-Stated? Author Depression Behavioral Health On track(2024 4:40 PM CDT) No Flora Yip LCSW Note: GOAL: Lisseth will manage depressive symptoms more effectively. Goal Reviewed with: patient today Readiness to change: Ready to change Department associated with goal: [facility] Steps to achieve [...] Ready to change Department associated with goal: [facility] Steps to achieve [...] Ready to change Department associated with goal: [facility] Steps to achieve [...] Ready to change Department associated with goal: [facility] Steps to achieve [...] documented as of this encounter Visit Diagnoses Diagnosis Anxiety about health documented in this encounter Additional Health Concerns Assessment Noted Time PHQ-9 Depression Total Score: 0 07/24/19 25 7:49 AM CDT documented as of this encounter Care Teams Support Services Manager Relationship Specialty Start Date End Date Homer Alcala MD #[address] [address] PCP - General Family Medicine 09/01/23 Yuliana Florez APN Advanced Practice Nurse 01/24/18 Michel Yanez APRN, SENIOR DIRECTOR OF STRATEGY [address] [place] [address] Nurse Practitioner Advanced Practice Nurse 12/28/21 Laureano Quigley MD #[address] [address] Consulting Physician Urology 02/04/22 Saurav Goyal MD #[address] [place] [address] Consulting Physician Pulmonary Disease 07/28/23 Ayala Weaver APRN, FINANCE LECTURER [address] [place] [address] Nurse Practitioner Neurology 12/18/23 documented as of this encounter
--- OUTSIDE RECORDS SUMMARY | 2025-02-22 12:12 | XMS_ITS | Encounter Summary ---
Author Organization [facility] Address [address] [place] [address] Phone Care Team Providers Care Instructional Media Services Technician Name Role Phone Yuliana Florez APN Unavailable Unavailab Damaso Chaudhari MD Primary Care Provider [phone] Michel Yanez APRN, QA TECH Unavailable [phone] Laureano Quigley MD Unavailable [phone] Elsa Kenny APRN, QA TECH Unavailable + [phone] Saurav Goyal MD Unavailable Homer Alcala MD Primary Care Provider [phone] Yuni Meneses REWRITE EDITOR Unavailable Unavailab Ayala Orozco APRN, MEDICAL GENETICS DIRECTOR Unavailable + [phone] Reason for Visit * Reason Comments Medication Refill Encounter Details Date Type Department Care Team (Late st Contact Info) Description 07/25/2023 Refill [facility] - Family Medicine [facility] [address] [place] [address] Damaso Vazquez MD [address] [place] [address] Medication Refill Social History Tobacco Use Types [...] 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 file Not on file documented as of this encounter Functional Status documented as of this encounter Mental Status * Question Answer Entry Date Author Teresita 97.3 07/25/2023 2:07 PM CDT Felecia [place] SpO2 98 07/25/2023 2:07 PM CDT Rishabh andFelecia * Question Answer Entry Date Author BP 142/81 07/27/2023 9:03 AM CDT Child Kayy johnson, RN Pulse 88 07/27/2023 9:03 AM CDT Kayy Coleman, RN documented in this encounter Plan of Treatment Upcoming Encounters Date Type Department Care Team (Latest Contact Info) Description 03/03/2025 10:00 AM PARTS PROCESSOR Office Visit [facility] Medical [facility] - Orthopedic Surgery [facility] [address] [place] [address] Homer Alcala MD #[address] [address] Ann Graham MD #2 [facility] [address] [place] [address] 03/04/2025 2:00 PM PARTS PROCESSOR Office Visit [facility] - Cardiology [facility] [address] [place] [phone] Homer Alcala MD #2 [facility] [address] [place] [address] Carolin Sykes, CHICKEN SEXER, QA TECH 2 [facility] [address] [place] [address] 03/19/2025 10:15 AM PARTS PROCESSOR Physical Therapy [facility] at [facility] [address] [facility] [address] [place] [address] Sujata Winn, CHICKEN SEXER, QA TECH [address] [place] [address] Michelle Patel, PT [place] Discharge Disposition: Discharged to home or Selfcare 03/21/2025 1:30 PM PARTS PROCESSOR Office Visit [facility] - Neurology [facility] [address] [place] [phone] Ayala Weaver APRN, MEDICAL GENETICS DIRECTOR #[address] [place] [address] 04/29/2025 9:00 AM PARTS PROCESSOR Office Visit [facility] Neurology [facility] [address] [place] [phone] Ayala Weaver APRN, MEDICAL GENETICS DIRECTOR #[address] [place] [address] 05/09/2025 11:00 AM PARTS PROCESSOR Office [facility] - Pulmonology & Sleep Medicine [facility] [address] [place] [address] Saurav Goyal MD #2 [place] [address] documented as of this encounter Goals Goal Patient Goal Type Associated Problems Recent Progress Patient-Stated? Author Depression Behavioral Health On track(2024 4:40 PM CDT) No Flora Yip LCSW Note: GOAL: Lisseth will manage depressive symptoms more effectively. Goal Reviewed with: patient today Readiness to change: Ready to change Department associated with goal: [facility] Steps to achieve goal: [...] On track(2024 4:40 PM CDT) No Flora Yip, ROBERTO Note: GOAL: Lisseth will process feelings of grief and loss related to her son. Goal Reviewed with: patient today Readiness to change: Ready to change Department associated with goal: [facility] Steps to achieve goal: [...] 19 04/05/2024 04/05/2024 04/05/2024 12:3 5 PM PARTS PROCESSOR COVID - 19 05/19/2024 05/19/2024 05/19/2024 6:18 PM CDT Assessment Noted Time PHQ-9 Depression Total Score: 19 024 7:46 AM CDT documented as of this encounter Care Teams Instructional Media Services Technician Relationship Specialty Start Date End Date Damaso Vazquez MD PCP - General Family Medicine 05/28/20 08/31/23 Homer Alcala MD #[address] [address] [place] [address] PCP - General Family Medicine 09/01/23 Yuliana Florez FAMILY RESOURCE MANAGEMENT PROFESSOR Advanced Practice Nurse 01/24/18 Michel Yanez CHICKEN SEXER, QA TECH [address] [place] [address] Nurse Practitioner Advanced Practice Nurse 12/28/21 Laureano Quigley MD #2 [facility] [address] [place] [address] Consulting Physician Urology 02/04/22 Elsa Kenny CHICKEN SEXER, QA TECH #2 [facility] [address] [place] [address] Nurse Practitioner Cardiology 07/14/23 09/17/24 Saurav Goyal MD #[address] [place] [address] Consulting Physician Pulmonary Disease 07/28/23 Yuni Meneses, REWRITE EDITOR [place] Document Reviewer Abalone Fisherman 11/27/23 12/04/23 Ayala Weaver APRN, MEDICAL GENETICS DIRECTOR #[address] [place] [address] Nurse Practitioner Neurology 12/18/23 documented as of this encounter
--- OUTSIDE RECORDS SUMMARY | 2025-02-22 12:12 | XMS_ITS | Encounter Summary ---
Author Organization [facility] Address [address] [place] [address] Phone Care Team Providers Care Haul Cane Brakeman Name Role Phone Yuliana Florez APN Unavailable Unavailab Michel Shepherd ORDER BUILDER LOADER, FINAL FINISHER Unavailable [phone] Laureano Quigley MD Unavailable [phone] Elsa Kenny ORDER BUILDER LOADER, FINAL FINISHER Unavailable + [phone] Saurav Goyal MD Unavailable Homer Alcala MD Primary Care Provider [phone] Yuni Meneses LATEX RIBBON MACHINE OPERATOR Unavailable Unavailab Ayala Orozco ORDER BUILDER LOADER, ADMINISTRATIVE SUPPORT CLERK Unavailable + [phone] Reason for Referral * PT/OT/ST (Routine) - Closed Specialty Diagnoses / Procedures Referred By Contdeon t Referred To Contact Physical Therapy Diagnoses Right shoulder pain, unspecified chronicity Left shoulder pain, unspecified chronicity Andrez Nuñez MD [address] [place] [address] Phone: tel: fax: [facility] [address] [place] [address] Phone: tel: fax: Referral ID Status Reason Start Date Expiration Date Visits Re quested Visits Authorized [id number] Closed 11/23/2023 50 50 Scheduling Instructions Encounter Details Date Type Department Care Team (Late st Contact Info) Description 11/23/2023 Transcribe Orders [facility] [address] [place] [address] Andrez Nuñez MD [address] [place] [address] Right shoulder pain, unspecified chronicity (Primary Dx); Left shoulder pain, unspecified chronicity Social History Tobacco Use Types Packs/Day Years Used Date Smoking Tobacco: Former Cigarettes 0 Q uit: 03/13/1988 Smokeless Tobacco: Never Alcohol Use Standard Drinks/Week Comments Not Currently 0 (1 standard drink = 0.6 oz pur e alcohol) seldom [facility] Utilities Answer Date Recorded In the past 12 months has [employer], gas, oil, or water [employer] threatened to shut off services in your home? Patient declined 10/18/2023 Social Connection and Isolation Panel Answer Date Recorded In a typical week, how many times do you talk on the phone with family, friends, or neighbors? Patient declined 10/18/2023 How often do you get togethe r with friends or relatives? Patient declined 10/18/2023 How often do you attend moravian or latter-day serv ices? Patient declined 10/18/2023 Do you belong to any clubs o r organizations such as moravian groups, unions, fraternal or athletic groups, or school groups? Patient declined 10/18/2023 How often do you attend meet ings of the clubs or organizations you belong to? Patient declined 10/18/2023 Are you , , di vorced, , never , or living with a partner? 10/18/2023 AUDIT-C Answer Date Recorded Q1: How often do you have a drink containing alcohol? Monthly or less 10/18/2023 Q2: How many drinks containi ng alcohol do you have on a typical day when you are drinking? Patient does not drink Q3: How often do you have si x or more drinks on one occasion? Never 10/18/2023 Overall Financial Resource Strain (CARDIA) Answe r Date Recorded How hard is it for you to pa y for the very basics like food, housing, medical care, and heating? Patient declined 10/18/2023 PHQ-2 Answer Date Recorded Total Score - Questions 1-9 19 05/0 08/2023 [facility] - Occupational Stress Questionnaire Answer Date Recorded Do you feel stress - tense, restless, nervous, or anxious, or unable to sleep at night because your mind is troubled all the time - these days? Very much 10/18/2023 Exercise Vital Sign Answer Date Recorde d On average, how many days pe r week do you engage in moderate to strenuous exercise (like a brisk walk)? Patient declined On average, how many minutes do you engage in exercise at this level? Patient declined 10/18/2023 Hunger Vital Sign Answer Date Recorded Within the past 12 months, y ou worried that your food would run out before you got the money to buy more. Often true Within the past 12 months, t he food you bought just didn't last and you didn't have money to get more. Sometimes true PRAPARE - Transportation Answer Date Re corded In the past 12 months, has l ack of transportation kept you from medical appointments or from getting medications? Yes 10/04 In the past 12 months, has l ack of transportation kept you from meetings, work, or from getting things needed for daily living? Yes 10/18/2023 Housing Stability Vital Sign Answer Yuan e Recorded In the last 12 months, was t here a time when you were not able to pay the mortgage or rent on time? Yes 10/18/2023 Number of Times Moved in the Last Year Not on fi le 10/18/2023 At any time in the past 12 m onths, were you homeless or living in a longterm (including now)? 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 file Not on file Not on file documented as of this encounter Plan of Treatment Upcoming Encounters Date Type Department Care Team (Latest Contact Info) Description 03/03/2025 10:00 AM RENTAL REPRESENTATIVE Office Visit [facility] - [facility]opedic Surgery - [place] [address] [place] [address] Homer Alcala MD #[address] [address] Ann Graham MD #[address] [address] 03/04/2025 2:00 PM RENTAL REPRESENTATIVE Office Visit [facility] - Cardiology [facility] [address] [place] [address] Homer Alcala MD #[address] [address] Carolin Sykes APRN, FINAL FINISHER [address] [address] 03/19/2025 10:15 AM RENTAL REPRESENTATIVE Physical Therapy [facility] [address] [place] [address] Sujata Winn, ORDER BUILDER LOADER, FINAL FINISHER [address] [place] [address] Michelle Patel, PT [place] Discharge Disposition: Discharged to home or Selfcare 03/21/2025 1:30 PM RENTAL REPRESENTATIVE [facility] [address] [place] [address] Ayala Weaver APRN, ADMINISTRATIVE SUPPORT CLERK #2 [place] [address] 04/29/2025 9:00 AM RENTAL REPRESENTATIVE Office Visit [facility] - Neurology [facility] [address] [place] [address] Ayala Weaver ORDER BUILDER LOADER, ADMINISTRATIVE SUPPORT CLERK #2 [place] [address] 05/09/2025 11:00 AM RENTAL REPRESENTATIVE Office Visit [facility] - Pulmonology & Sleep Medicine [facility] [address] [place] [address] Saurav Goyal MD #2 [place] [address] Scheduled Referrals Name Type Priority Associated Diagnoses Orde r Schedule PHYSICAL THERAPY REFERRAL Outpatient Referral Routine Right shoulder pain, unspecified chronicity Left shoulder pain, unspecified chronicity Expected: 11/23/2023, Expires: 11/22/2024 documented as of this encounter Goals Goal Patient Goal Type Associated Problems Recent Progress Patient-Stated? Author Depression Behavioral Health On track(2024 4:40 PM CDT) Flora Miller, BARREL CAP SETTER Note: GOAL: Lisseth will manage depressive symptoms more effectively. Goal Reviewed with: patient today Readiness to change: Ready to change Department associated with goal: [facility] Steps to achieve goal: [...] Ready to change Department associated with goal: [facility] Steps to achieve goal: [...] as of this encounter Visit Diagnoses Diagnosis Right shoulder pain, unspecified chronicity- Primary Left shoulder pain, unspecified chronicity documented in this encounter Additional Health Concerns Infection Onset Date Last Indicated Resolved Time COVID - 19 04/05/2024 04/05/2024 04/05/2024 12:3 5 PM RENTAL REPRESENTATIVE COVID - 19 05/19/2024 05/19/2024 05/19/2024 6:18 PM CDT Assessment Noted Time PHQ-9 Depression Total Score: 19 024 7:46 AM CDT documented as of this encounter Care Teams Haul Cane Brakeman Relationship Specialty Start Date End Date Homer Alcala MD #[address] [address] PCP - General Family Medicine 09/01/23 Yuliana Florez APN Advanced Practice Nurse 01/24/18 Michel Yanez, ORDER BUILDER LOADER, FINAL FINISHER [address] [place] [address] Nurse Practitioner Advanced Practice Nurse 12/28/21 Laureano [facility]igley MD [facility]2 [facility] [address] [place] [address] Consulting Physician Urology 02/04/22 Elsa Kenny, ORDER BUILDER LOADER, FINAL FINISHER #2 [facility], [facility] [address] [place] [address] Nurse Practitioner Cardiology 07/14/23 09/17/24 Saurav Goyal MD #[address] [place] [address] Consulting Physician Pulmonary Disease 07/28/23 Yuni Meneses, [facility] Web Operations Manager Gizzard Peeler 11/27/23 12/04/23 Ayala Weaver, ORDER BUILDER LOADER, ADMINISTRATIVE SUPPORT CLERK [address] [place] [address] Nurse Practitioner Neurology 12/18/23 documented as of this encounter
--- OUTSIDE RECORDS SUMMARY | 2025-02-22 12:12 | XMS_ITS | Clinical Summary ---
Author Organization [facility] Address [address] [place] [address] Phone Care Team Providers Care Supervisor Parking Lot Name Role Phone XUAN ISABEL, EULALIA Goodman Unavailable [phone] STACEY SANTOS CNP, KELLY A Primary Care Provider [phone] Reason for Visit and Chief Complaint BLOOD PRESSURE CHECK Plan of Treatment No Plan of Treatment Recorded Assessments Includes: Assessments from this encounter No Assessments Recorded Medical Equipment - Implanted Devices Includes: Current Devices No Medical Equipment Recorded Medications Includes: Medications discussed during this encounter and other current Medications Current Medications (continue as prescribed) HYDROcodone-Acetaminophen 7. 5-325 MG Oral Tablet 04/17/2023 Provider: EULALIA ISABEL Diagnosis: Other spondylosi s with radiculopathy, lumbar region 1 BY MOUTH TWICE DAILY NEEDED Last Documented On 4 8:11AM By EULALIA ISABEL ; [facility] Cyclobenzaprine HCl 5 MG Oral Tablet 04/11/2023 Prov ider: EULALIA ISABEL Diagnosis: ONE (1) TO TWO (2) BY MOUTH EVERY NIGHT AT BEDTIME NEEDED Last Documented On 4 10:49AM By EULALIA ISABEL ; [facility] Pregabalin 100 MG Oral Capsule 02/20/2023 Provider: EULALIA HERNÁNDEZ Diagnosis: Chronic pain syn drome 1 CAPSULE TWO TIMES A DAY Last Documented On 3 1:55PM By EULALIA ISABEL ; [facility] FLUoxetine HCl 20 MG Oral Capsule 09/26/2022 Provide r: LB DENIS NP Diagnosis: Last Documented On 10/06/2022 4:20PM By Vilma BENTON ; [facility] Levothyroxine Sodium 88 MCG Oral Tablet 07/25/2022 Nelly jordander: Diagnosis: Last Documented On 07/28/2022 4:14PM By Vilma BENTON ; [facility] Losartan Potassium 50 MG Oral Tablet 07/18/2022 Prov ider: WALESKA GOYAL MD Diagnosis: Last Documented On 07/28/2022 4:15PM By Vilma BENTON ; [facility] buPROPion HCl ER (XL) 300 MG Oral Tablet Extended Release 24 Hour 07/12/2022 Provider: WALESKA GOYAL MD Diagnosis: Last Documented On 07/28/2022 4:13PM By Vilma BENTON ; [facility] Amphetamine-Dextroamphet ER 20 MG Oral Capsule Extended Release 24 Hour 07/11/2022 Provider: WALESKA GOYAL MD Diagnosis: Last Documented On 07/28/2022 4:16PM By Vilma BENTON ; [facility] Ondansetron HCl 4 MG Oral Tablet 07/07/2022 Provider : WALESKA GOYAL MD Diagnosis: Last Documented On 07/12/2022 4:27PM By Vilma BENTON ; [facility] Desvenlafaxine Succinate ER 100 MG Oral Tablet Extended Release 24 Hour 07/01/2022 Provider: WALESKA GOYAL MD Diagnosis: Last Documented On 07/28/2022 4:14PM By Vilma BENTON ; [facility] Pantoprazole Sodium 40 MG Or al Tablet Delayed Release 06/15/2022 Provider: WALESKA GOYAL MD Diagnosis: Last Documented On 07/12/2022 4:28PM By Vilma BENTON ; [facility] Narcan 4 MG/0.1ML Nasal Liquid 08/06/2020 Provider: EULALIA GOVEA ANP -BC 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 as directed Last Documented On 4:33PM By ANJU MARRUFO DONKEY DOCTOR-BC ; [facility] Medications Administered Includes: Administered Medications from this encounter No Administered Medications Recorded Vital Signs Includes: Vital Signs from this encounter Vital Name 07/07/2023 12:17P Blood Pressure Sitting R 140/90 Height (in) 64 Last Documented: On 07/07/2023 12:17P M ; [facility] Results Includes: Results discussed during this encounter No Results Recorded For Specified Dates History of Present Illness Includes: History of Present Illness from this encounter No History of Present Illness Recorded Social History No Social History Recorded - Smoking Status Unknown Medical History Includes: Medical History addressed during this encounter No Medical History Recorded Family History Includes: Family History addressed during this encounter No Family History Recorded Review of Systems Includes: Review of Systems from this encounter No Review of Systems Recorded Mental Status Includes: Mental Status from this encounter No Mental Status Recorded Functional Status Includes: Functional Status from this encounter No Functional Status Recorded Physical Exam Includes: Physical Exam from this encounter No Physical Exam Recorded Allergies Includes: Active Allergies Substance Type Reaction Onset Date Resolved Date Statu s Morphine Sulfate Allergy Skin Rashes / E ruption of skin 10/18/2018 Active Last Documented On 4 4:26PM ; [facility] Levaquin Allergy 10/08/2020 Active Last Documented On 4 4:26PM ; [facility] Encounters Encounter Provider Location Date Check-In Time Check-Out Time Diagnosis BLOOD PRESSURE CHECK EULALIA ISABEL 07/07/2023 12:17PM 11:59PM Insurance Includes: Active Insurance Policies Plan Name Member ID Group # Subscriber Relationship Effect chelle Dates 1 - MEDICAID [place] [facility] [id number] RITO FUENTES Self Clinical Notes Includes: Clinical Notes from this encounter No Clinical Notes Recorded
--- OUTSIDE RECORDS SUMMARY | 2025-02-22 12:12 | XMS_ITS | Encounter Summary ---
Author Organization [facility] Address [address] [place] [address] Phone Care Team Providers Care Innovation Analyst Name Role Phone Yuliana Florez APN Unavailable Unavailab Michel Shepherd PARKS WORKER, FLAT SCREEN WORKER Unavailable [phone] Laureano Quigley MD Unavailable [phone] Elsa Kenny PARKS WORKER, FLAT SCREEN WORKER Unavailable + [phone] Saurav Goyal MD Unavailable Homer Alcala MD Primary Care Provider [phone] Yuni Meneses FIREFIGHTER MARINE Unavailable Unavailab Ayala Orozco PARKS WORKER, RADIOPHARMACIST Unavailable + [phone] Reason for Visit * Reason Onset Date Comments Need Order 10/02/2023 Encounter Details Date Type Department Care Team (Late st Contact Info) Description 10/02/2023 Telephone [facility] [address] [place] [address] Alpa Mueller, PT [place] Need Order Social History Tobacco Use Types Packs/Day Years Used Date Smoking Tobacco: Former Cigarettes 0 Q uit: 03/13/1988 Smokeless Tobacco: Never Alcohol Use Standard Drinks/Week Comments Not Currently 0 (1 standard drink = 0.6 oz pur e alcohol) seldom [facility] Utilities Answer Date Recorded In the past 12 months has e [employer], gas, oil, or water [employer] threatened to shut off services in your home? Patient declined 09/18/2023 Social Connection and Isolation Panel Answer Date Recorded In a typical week, how many times do you talk on the phone with family, friends, or neighbors? Twice a week 09/18/2023 How often do you get togethe r with friends or relatives? Once a week 09/18/2023 How often do you attend pentecostal or pentecostal serv ices? Never 09/18/2023 Do you belong to any clubs o r organizations such as pentecostal groups, unions, fraternal or athletic groups, or school groups? Patient declined 09/18/2023 How often do you attend meet ings of the clubs or organizations you belong to? Never 09/18/2023 Are you , , di vorced, , never , or living with a partner? 09/18/2023 AUDIT-C Answer Date Recorded Q1: How often do you have a drink containing alcohol? Never 09/18/2023 Q2: How many drinks containi ng alcohol do you have on a typical day when you are drinking? Patient does not drink Q3: How often do you have si x or more drinks on one occasion? Never 09/18/2023 Overall Financial Resource Strain (CARDIA) Answe r Date Recorded How hard is it for you to pa y for the very basics like food, housing, medical care, and heating? Very hard 09/18/2023 PHQ-2 Answer Date Recorded Total Score - Questions 1-9 19 05/0 08/2023 [facility] - Occupational Stress Questionnaire Answer Date Recorded Do you feel stress - tense, restless, nervous, or anxious, or unable to sleep at night because your mind is troubled all the time - these days? Very much 09/18/2023 Exercise Vital Sign Answer Date Recorde d On average, how many days pe r week do you engage in moderate to strenuous exercise (like a brisk walk)? Patient declined On average, how many minutes do you engage in exercise at this level? Patient declined 09/18/2023 Hunger Vital Sign Answer Date Recorded Within the past 12 months, y ou worried that your food would run out before you got the money to buy more. Sometimes true Within the past 12 months, t he food you bought just didn't last and you didn't have money to get more. Sometimes true PRAPARE - Transportation Answer Date Re corded In the past 12 months, has l ack of transportation kept you from medical appointments or from getting medications? Yes 09/03 In the past 12 months, has l ack of transportation kept you from meetings, work, or from getting things needed for daily living? Yes 09/18/2023 Housing Stability Vital Sign Answer Yuan e Recorded In the last 12 months, was t here a time when you were not able to pay the mortgage or rent on time? 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 Not on file Not on file documented as of this encounter Functional Status * BP Answer Date of Assessment Author 124/84 10/02/2023 10:28 AM CDT Gracy Mueller, PT * Temp Answer Date of Assessment Author 96.5 10/02/2023 10:28 AM CDT Gracy Mueller, PT * Pulse Answer Date of Assessment Author 89 10/02/2023 10:28 AM CDT Gracy Mueller PT * Resp Answer Date of Assessment Author 17 10/02/2023 10:28 AM CDT Gracy Mueller PT * SpO2 Answer Date of Assessment Author 98 10/02/2023 10:28 AM CDT Gracy Mueller PT documented as of this encounter Mental Status * BP Answer Entry Date Author 124/84 10/02/2023 10:28 AM CDT Gracy Mueller PT * Temp Answer Entry Date Author 96.5 10/02/2023 10:28 AM CDT Gracy Mueller PT * Pulse Answer Entry Date Author 89 10/02/2023 10:28 AM CDT Gracy Mueller PT * SpO2 Answer Entry Date Author 98 10/02/2023 10:28 AM CDT Gracy Mueller PT documented in this encounter Miscellaneous Notes * Telephone Encounter - Liset Foote PAC - 10/02/2023 4:32 PM CDT Ok for social services analyst * Telephone Encounter - Alpa Mueller PT - 10/02/2023 10:58 AM CDT Requesting verbal order for social work to assist for transportation application. Please advise if I can plot. Thank you. documented in this encounter Plan of Treatment Upcoming Encounters Date Type Department Care Team (Latest Contact Info) Description 03/03/2025 10:00 AM OPERATING ROOM ORDERLY [facility] - [facility] [address] [facility] [place] [address] Homer Alcala MD #2 [facility] [address] [place] [address] Ann Graham MD [facility]2 [facility] [address] [place] [address] 03/04/2025 2:00 PM OPERATING ROOM ORDERLY [facility] [place] [address] [place] [address] Homer Alcala MD #2 [facility] [address] [place] [address] Carolin Sykes, PARKS WORKER, FLAT SCREEN WORKER 2 [facility] [address] [place] [address] 03/19/2025 10:15 AM OPERATING ROOM ORDERLY [facility] [address] [facility], [facility] [address] [place] [address] Sujata Winn, PARKS WORKER, FLAT SCREEN WORKER [address] [place] [address] Michelle Patel, PT [place] Discharge Disposition: Discharged to home or Selfcare 03/21/2025 1:30 PM OPERATING ROOM ORDERLY [facility] [place] [address] [place] [address] Ayala Weaver APRN, RADIOPHARMACIST #2 [place] [address] 04/29/2025 9:00 AM OPERATING ROOM ORDERLY [facility] [place] [address] [place] [address] Ayala Weaver APRN, RADIOPHARMACIST #[address] [place] [address] 05/09/2025 11:00 AM OPERATING ROOM ORDERLY [facility] - [place] [address] [place] [address] Saurav Goyal MD #[address] [place] [address] documented as of this encounter Goals Goal Patient Goal Type Associated Problems Recent Progress Patient-Stated? Author Depression Behavioral Health On track(2024 4:40 PM CDT) No Flora Yip LCSW Note: GOAL: Lisseth will manage depressive symptoms more effectively. Goal Reviewed with: patient today Readiness to change: Ready to change Department associated with goal: [facility] Steps to achieve goal: [...] Ready to change Department associated with goal: [facility] Steps to achieve goal: [...] 19 04/05/2024 04/05/2024 04/05/2024 12:3 5 PM OPERATING ROOM ORDERLY COVID - 19 05/19/2024 05/19/2024 05/19/2024 6:18 PM CDT Assessment Noted Time PHQ-9 Depression Total Score: 19 024 7:46 AM CDT documented as of this encounter Care Teams Innovation Analyst Relationship Specialty Start Date End Date Homer Alcala MD #2 [facility] [address] [place] [address] PCP - General Family Medicine 09/01/23 Yuliana Florez, TANK FARM OPERATOR Advanced Practice Nurse 01/24/18 Michel Yanez, PARKS WORKER, FLAT SCREEN WORKER [address] [place] [address] Nurse Practitioner Advanced Practice Nurse 12/28/21 Laureano Quigley MD #[address] [facility] [address] [place] [address] Consulting Physician Urology 02/04/22 Elsa Kenny, PARKS WORKER, FLAT SCREEN WORKER #[address] [facility] [address] [place] [address] Nurse Practitioner Cardiology 07/14/23 09/17/24 Saurav Goyal MD #2 [place] [address] Consulting Physician Pulmonary Disease 07/28/23 Yuni Meneses, FIREFIGHTER MARINE [place] Physics Technical Officer Daycare Manager 11/27/23 12/04/23 Ayala Weaver, PARKS WORKER, RADIOPHARMACIST [address] [place] [address] Nurse Practitioner Neurology 12/18/23 documented as of this encounter
--- OUTSIDE RECORDS SUMMARY | 2025-02-22 12:12 | XMS_ITS | Encounter Summary ---
Author Organization [facility] Address [address] [place] [address] Phone Care Team Providers Care Weatherization Crew Leader Name Role Phone Yuliana Florez APN Unavailable Unavailab Damaso Chaudhari MD Primary Care Provider [phone] Michel Yanez APRN, ALUM MIXER Unavailable [phone] Laureano Quigley MD Unavailable [phone] Elsa Kenny CARBURETOR EXPERT, ALUM MIXER Unavailable [phone] Saurav Goyal MD Unavailable Homer Alcala MD Primary Care Provider [phone] Yuni Meneses SOCIAL MEDIA CAMPAIGN MANAGER Unavailable Unavailab Ayala Orozco APRN, DIRECTOR OF FINANCIAL PLANNING Unavailable + [phone] Reason for Visit * Reason Onset Date Comments Results 08/25/2023 Encounter Details Date Type Department Care Team (Late st Contact Info) Description 08/25/2023 Telephone [facility] [address] [place] [address] Damaso Vazquez MD #1 [place] [address] Results Social History Tobacco Use Types Packs/Day Years [...] 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 Labs available in Care Everywhere. * Telephone Encounter - Chapito Herr RN - 08/25/2023 1:22 PM CDT Patient calling to ask about her lab results. Results not yet reviewed by provider. Patient was hoping for some explanation of them before the weekend. She would also like her results to be faxed to Dr. Ojeda at [facility]. She states she has an appointment with him next Monday and she would like for him to be able to review the labs. She does not have a fax number. Advised her for now, that she would be able to show him the results from her MyChart while at the appointment. documented in this encounter Plan of Treatment Upcoming Encounters Date Type Department Care Team (Latest Contact Info) Description 03/03/2025 10:00 AM CHUTE BUILDER Office Visit [facility] - Orthopedic Surgery - [place] #2 [place] [address] Homer Alcala MD #[address] [address] Ann Graham MD #[address] [address] 03/04/2025 2:00 PM CHUTE BUILDER Office Visit [facility] - [place] #2 [place] [address] Homer Alcala MD #[address] [address] Carolin Sykes APRN, ALUM MIXER [address] [address] 03/19/2025 10:15 AM CHUTE BUILDER Physical Therapy [facility] 200 [facility], [address] [address] Sujata Winn, CARBURETOR EXPERT, ALUM MIXER [address] [place] [address] Michelle Patel, PT [place] Discharge Disposition: Discharged to home or Selfcare 03/21/2025 1:30 PM CHUTE BUILDER Office Visit [facility] Neurology [facility] #2 [place] [address] Ayala Weaver, CARBURETOR EXPERT, DIRECTOR OF FINANCIAL PLANNING #2 [place] [address] 04/29/2025 9:00 AM CHUTE BUILDER Office Visit [facility] Neurology - [place] #2 [place] [address] Ayala Weaver, CARBURETOR EXPERT, DIRECTOR OF FINANCIAL PLANNING #2 [place] [address] 05/09/2025 11:00 AM CHUTE BUILDER Office Visit [facility] Pulmonology & Sleep Medicine - [place] #2 [place] [address] Saurav Goyal MD #2 [place] [address] documented as of this encounter Goals Goal Patient Goal Type Associated Problems Recent Progress Patient-Stated? Author Depression Behavioral Health On track(2024 4:40 PM CDT) Flora Miller, GREASE REMOVER Note: GOAL: Lisseth will manage depressive symptoms more effectively. Goal Reviewed with: patient today Readiness to change: Ready to change Department associated with goal: [facility] [...] to change Department associated with goal: [facility] [...] 19 04/05/2024 04/05/2024 04/05/2024 12:3 5 PM CHUTE BUILDER COVID - 19 05/19/2024 05/19/2024 05/19/2024 6:18 PM CDT Assessment Noted Time PHQ-9 Depression Total Score: 19 024 7:46 AM CDT documented as of this encounter Care Teams Weatherization Crew Leader Relationship Specialty Start Date End Date Damaso Vazquez MD PCP - General Family Medicine 05/28/20 08/31/23 Homer Alcala MD #[address] [address] PCP - General Family Medicine 09/01/23 Yuliana Florez APN Advanced Practice Nurse 01/24/18 Michel Yanez, CARBURETOR EXPERT, ALUM MIXER #[address] [facility] [facility] [address] Nurse Practitioner Advanced Practice Nurse 12/28/21 Laureano Quigley MD #2 [facility] [address] [place] [address] Consulting Physician Urology 02/04/22 Elsa Kenny, CARBURETOR EXPERT, ALUM MIXER #2 [facility] [address] [place] [address] Nurse Practitioner Cardiology 07/14/23 09/17/24 Saurav Goyal MD #2 [place] [address] Consulting Physician Pulmonary Disease 07/28/23 Yuni Meneses, [facility] Domestic Violence Counselor Enrollment Counselor 11/27/23 12/04/23 yAala Weaver, CARBURETOR EXPERT, DIRECTOR OF FINANCIAL PLANNING #2 [place] [address] Nurse Practitioner Neurology 12/18/23 documented as of this encounter
--- OUTSIDE RECORDS SUMMARY | 2025-02-22 12:12 | XMS_ITS | Encounter Summary ---
Author Organization [facility] Address [address] [place] [address] Phone Care Team Providers Care Photo Technologist Name Role Phone Yuliana Florez APN Unavailable Unavailab Michel Shepherd MOLDER LABELS, ANALYST MARKET INTELLIGENCE Unavailable [phone] Laureano Quigley MD Unavailable [phone] Elsa eKnny MOLDER LABELS, ANALYST MARKET INTELLIGENCE Unavailable + [phone] Saurav Goyal MD Unavailable Homer Alcala MD Primary Care Provider [phone] Ayala Weaver MOLDER LABELS, EQUAL OPPORTUNITY COUNSELOR Unavailable + [phone] Reason for Visit * Reason Comments Medication Refill Encounter Details Date Type Department Care Team (Late st Contact Info) Description 12/06/2023 Refill [facility] #[address] [place] [address] Homer Alcala MD #[address] [address] Medication Refill Social History Tobacco Use Types Packs/Day Years Used Date Smoking Tobacco: Former Cigarettes 0 Q uit: 03/13/1988 Smokeless Tobacco: Never Alcohol Use Standard Drinks/Week Comments Not Currently 0 (1 standard drink = 0.6 oz pur e alcohol) seldom [facility] Utilities Answer Date Recorded In the past 12 months has th e electric, gas, oil, or water company threatened to shut off services in your home? No 12/04/2023 Social Connection and Isolation Panel Answer Date Recorded In a typical week, how many times do you talk on the phone with family, friends, or neighbors? Patient declined 12/04/2023 How often do you get togethe r with friends or relatives? Patient declined 12/04/2023 How often do you attend nondenominational or church serv ices? Patient declined 12/04/2023 Do you belong to any clubs o r organizations such as nondenominational groups, unions, fraternal or athletic groups, or school groups? Patient declined 12/04/2023 How often do you attend meet ings of the clubs or organizations you belong to? Patient declined 12/04/2023 Are you , , di vorced, , never , or living with a partner? 12/04/2023 AUDIT-C Answer Date Recorded Q1: How often do you have a drink containing alc ohol? Monthly or less 12/04/2023 Q2: How many drinks containi ng alcohol do you have on a typical day when you are drinking? 1 or 2 12/04/2023 Q3: How often do you have si x or more drinks on one occasion? Never 12/04/2023 Overall Financial Resource Strain (CARDIA) Answe r Date Recorded How hard is it for you to pa y for the very basics like food, housing, medical care, and heating? Somewhat hard 12/04/2023 PHQ-2 Answer Date Recorded Total Score - Questions 1-9 5 11/06 [facility] - [...] medical appointments or from getting medications? Yes 11/06 In the past 12 months, has l ack of transportation kept you from meetings, work, or from getting things needed for daily living? Yes 12/04/2023 Housing Stability Vital Sign Answer Yuan e Recorded In the last 12 months, was t here a time when you were not able to pay the mortgage or rent on time? Yes 12/04/2023 In the past 12 months, how m any times have you moved where you were living? 0 12/04/2023 At any time in the past 12 m [facility], were you homeless or living in a senior living (including now)? 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 documented in this encounter Plan of Treatment Upcoming Encounters Date Type Department Care Team (Latest Contact Info) Description 03/03/2025 10:00 AM LIGHTING DESIGNER [facility] Visit [facility] - Orthopedic Surgery - [place] #2 [place] [address] Homer Alcala MD #2 [facility] [address] [place] [address] Ann Graham MD #[address] [address] 03/04/2025 2:00 PM LIGHTING DESIGNER Office Visit [facility] Cardiology [facility] #2 [place] [address] Homer Alcala MD #2 [facility] 205 [place] [address] Carolin Sykes APRN, ANALYST MARKET INTELLIGENCE 2 [facility] 305 [place] [address] 03/19/2025 10:15 AM LIGHTING DESIGNER [facility] 200 [facility], [email or web address] [address] [place] [address] Sujata Winn, MOLDER LABELS, ANALYST MARKET INTELLIGENCE [address] [place] [address] Michelle Patel, PT [place] Discharge Disposition: Discharged to home or Selfcare 03/21/2025 1:30 PM LIGHTING DESIGNER Office Visit [facility] Neurology - [place] #2 [place] [address] Ayala Weaver, MOLDER LABELS, EQUAL OPPORTUNITY COUNSELOR #2 [place] [address] 04/29/2025 9:00 AM LIGHTING DESIGNER Office Visit [facility] Neurology - [place] #2 [place] [address] Ayala Weaver, MOLDER LABELS, EQUAL OPPORTUNITY COUNSELOR #2 [place] [address] 05/09/2025 11:00 AM LIGHTING DESIGNER Office Visit [facility] Pulmonology & Sleep Medicine - [place] #2 [place] [address] Saurav Goyal MD #2 [place] [address] documented as of this encounter Goals Goal Patient Goal Type Associated Problems Recent Progress Patient-Stated? Author Depression Behavioral Health On track(2024 4:40 PM CDT) No lFora Yip LCSW Note: GOAL: Lisseth will manage depressive symptoms more effectively. Goal Reviewed with: patient today Readiness to change: Ready to change Department associated with goal: [facility] Steps to achieve [...] Health On track(2024 4:40 PM CDT) No Varble, Flora A, CLINICAL TRIAL ASSISTANT Note: GOAL: Lisseth will process feelings of grief and loss related to her son. Goal Reviewed with: patient today Readiness to change: Ready to change Department associated with goal: [facility] Steps to achieve [...] 19 04/05/2024 04/05/2024 04/05/2024 12:3 5 PM LIGHTING DESIGNER COVID - 05/19/2024 05/19/2024 05/19/2024 6:18 PM CDT Assessment Noted Time PHQ-9 Depression Total Score: 5 12/04/19 24 2:08 PM CDT documented as of this encounter Care Teams Photo Technologist Relationship Specialty Start Date End Date Homer Alcala MD #2 [facility] [address] [place] [address] PCP - General Family Medicine 09/01/23 Yuliana Florez APN Advanced Practice Nurse 01/24/18 Michel Yanez APRN, ANALYST MARKET INTELLIGENCE #2 [place] [address] Nurse Practitioner Advanced Practice Nurse 12/28/21 Laureano Quigley MD #2 [facility] [address] [place] [address] Consulting Physician Urology 02/04/22 Elsa Kenny APRN, ANALYST MARKET INTELLIGENCE #2 [facility] YANELIMiller [facility] [address] [place] [address] Nurse Practitioner Cardiology 07/14/23 09/17/24 Saurav Goyal MD #2 [place] [address] Consulting Physician Pulmonary Disease 07/28/23 Ayala Weaver APRN, EQUAL OPPORTUNITY COUNSELOR #2 [place] [address] Nurse Practitioner Neurology 12/18/23 documented as of this encounter
--- OUTSIDE RECORDS SUMMARY | 2025-02-22 12:12 | XMS_ITS | Encounter Summary ---
Author Organization [facility] Address [address] [place] [address] Phone Care Team Providers Care Restoration Technician Name Role Phone Yuliana Florez APN Unavailable Unavailab Felecia Hendricks CANNON PINION ADJUSTER, STEEP TENDER Primary Care Provider Damaso Vazquez MD Primary Care Provider [phone] Michel Yanez APRN, STEEP TENDER Unavailable [phone] Laureano Quigley MD Unavailable [phone] Elsa Kenny APRN, STEEP TENDER Unavailable + [phone] Saurav Goyal MD Unavailable Homer Alcala MD Primary Care Provider [phone] Yuni MenesesW Unavailable Unavailab Ayala Orozco CANNON PINION ADJUSTER, TRUCK BODY REPAIRER Unavailable [phone] Reason for Visit * Reason Comments Medication Refill Encounter Details Date Type Department Care Team (Late st Contact Info) Description 04/24/2020 [facility] [address] [place] [address] Felecia Saenz, CANNON PINION ADJUSTER, STEEP TENDER [address] [place], [place] [id number] Medication Refill Social History Tobacco Use Types Packs/Day Years Used Date Smoking Tobacco: Every Day Cigarettes 0.5 30 Started: 03/13/1988; Last attempted to quit: 03/13/2018 Smokeless Tobacco: Never Alcohol Use Standard Drinks/Week Comments Yes 0 (1 standard drink = 0.6 oz pur e alcohol) seldom PHQ-2 Answer Date Recorded PHQ-2 Score 1 01/11/2019 Comments No Sex and Gender Information Value Date Recorded Sex Assigned at Not on file Legal Sex Female 8:32 AM CDT Gender Identity Not on file Sexual Orientation Not on file 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 No / Unsure 04/27/2020 3:58 PM SALES REP documented as of this encounter Miscellaneous Notes * Telephone Encounter - Veronica Keating RN - 04/24/2020 8:40 AM CST Medication failed the protocol, provider to review and approve the medication order if appropriate. Requested Prescriptions Pending Prescriptions Disp Refills Desvenlafaxine Succinate 100 MG TABLET SR 24 HR [Pharmacy Med Name: DESVENLAFAXINE SUC ER 100 M 100Tablet] 30 Tablet 2 Sig: TAKE ONE TABLET BY MOUTH EVERY DAY Off-Protocol Failed - 04/24/2020 8:39 AM Failed - Medication not assigned to a protocol, review manually. Passed - Valid encounter within last 12 months Past Office Visits Recent Outpatient Visits 2 months ago Pain in both lower extremities [facility] Felecia Saenz, FRUIT OR NUT GROWER, STEEP TENDER 8 months ago Chest pain, unspecified type [facility] Velaz[facility], FRUIT OR NUT GROWER, STEEP TENDER 10 months ago Anxiety [facility] - Felecia Gama, FRUIT OR NUT GROWER, STEEP TENDER 1 year ago Encounter for vaccination [facility] - Felecia Gama, FRUIT OR NUT GROWER, STEEP TENDER 1 year ago Viral upper respiratory tract infection [facility] - Felecia Gama, FRUIT OR NUT GROWER, STEEP TENDER Upcoming Appointments Future Appointments In 3 days Flora Yip, MARKETING EDUCATION TEACHER [facility], [facility] In 1 week Flora Yip, [facility], [facility] In 3 months Felecia Saenz APN, STEPHANIE [facility] - Recent and Past Visits Recent Visits Date Type Provider Dept 02/10/20 Office Visit Felecia Saenz APN, CNP [facility] 08/02/19 Office Visit Felecia Saenz APN, CNP [facility] 06/24/19 Telemedicine [facility] Showing recent visits within past 460 days with a meds authorizing provider and meeting all other requirements Future Appointments No visits were found meeting these conditions. Showing future appointments within next 90 days with a meds authorizing provider and meeting all other requirements Not Delegated - Psychiatry: Antidepressants: Other Failed - 04/24/2020 8:39 AM Failed - Last BP in normal range BP Readings from Last 1 Encounters: 03/09/20 166/66 Failed - This refill cannot be delegated Passed - Valid encounter within last 12 months Past Office Visits Recent Outpatient Visits 2 months ago Pain in both lower extremities [facility] Felecia Saenz APN, STEEP TENDER 8 months ago Chest pain, unspecified type [facility] - Felecia Gama, FRUIT OR NUT GROWER, STEEP TENDER 10 months ago Anxiety [facility] - Felecia Gama, FRUIT OR NUT GROWER, STEEP TENDER 1 year ago Encounter for vaccination [facility] Felecia Saenz APN, CNP 1 year ago Viral upper respiratory tract infection [facility] Felecia Saenz APN, STEPHANIE Upcoming Appointments Future Appointments In 3 days Flora Yip, ROBERTO [facility] In 1 week Flora Yip LCSW [facility] In 3 months Felecia Saenz APN, CNP [facility] Medical [facility] - Family [facility] SCHEDULING AGENT - Recent and Past Visits Recent Visits Date Type Provider Dept 02/10/20 Office Visit Felecia Saenz APN, CNP [facility] 08/02/19 Office Visit Felecia Saenz APN, [facility]NP [facility] 06/24/19 Telemedicine Felecia Saenz APN, CNP [facility] Showing recent visits within past 460 days with a meds authorizing provider and meeting all other requirements Future Appointments No visits were found meeting these conditions. Showing future appointments within next 90 days with a meds authorizing provider and meeting all other requirements S REP documented in this encounter Plan of Treatment Upcoming Encounters Date Type Department Care Team (Latest Contact Info) Description 03/03/2025 10:00 AM SALES REP Office Visit [facility] Medical [facility] - Orthopedic Surgery [facility] #2 [place] [address] Homer Alcala MD #2 [facility] [address] [place] [address] Ann Graham MD #2 [facility] [address] [place] [address] 03/04/2025 2:00 PM SALES REP Office Visit [facility] Medical [facility] - Cardiology [facility] #2 [place] [address] Homer Alcala MD #2 [facility] [address] [place] [address] Carolin Sykes, CANNON PINION ADJUSTER, STEEP TENDER 2 [facility] [address] [place] [address] 03/19/2025 10:15 AM SALES REP Physical [facility] 200 [facility], [place] [address] [address] Sujata Winn, CANNON PINION ADJUSTER, STEEP TENDER [address] [place] [address] Michelle Patel, PT [place] Discharge Disposition: Discharged to home or Selfcare 03/21/2025 1:30 PM SALES REP [facility] [place] #2 [place] [address] Ayala Weaver APRN, TRUCK BODY REPAIRER #2 [place] [address] 04/29/2025 9:00 AM SALES REP [facility] [place] #2 [place] [address] Ayala Weaver CANNON PINION ADJUSTER, TRUCK BODY REPAIRER #2 [place] [address] 05/09/2025 11:00 AM SALES REP [facility] [place] #2 [place] [address] Saurav Goyal MD #2 [place] [address] documented as of this encounter Goals Goal Patient Goal Type Associated Problems Recent Progress Patient-Stated? Author Depression Behavioral Health On track(2024 4:40 PM CDT) Flora Miller, MARKETING EDUCATION TEACHER Note: GOAL: Lisseth will manage depressive symptoms more effectively. Goal Reviewed with: patient today Readiness to change: Ready to change Department associated with goal: [facility] Steps to achieve [...] and or cope with anxiety and depression. documented as of this encounter Visit Diagnoses Diagnosis Major depressive disorder, remission status unspecified, unspecified whether recurrent documented in this encounter Additional Health Concerns Infection Onset Date Last Indicated Resolved Time COVID - 19 10/08/2023 10/08/2023 10/08/2023 11:4 0 AM CDT COVID - 19 04/05/2024 04/05/2024 04/05/2024 12:3 5 PM SALES REP COVID - 19 05/19/2024 05/19/2024 05/19/2024 6:18 PM CDT Assessment Noted Time PHQ-9 Depression Total Score: 1 01/12/20 19 5:00 PM SALES REP documented as of this encounter Care Teams Restoration Technician Relationship Specialty Start Date End Date Felecia Saenz, CANNON PINION ADJUSTER, STEEP TENDER [address] [place] [address] PCP - General Advanced Practice Nurse 03/14/18 05/27/20 Damaso Vazquez MD [address] [place] [address] PCP - General Family Medicine 05/28/20 08/31/23 Homer Alcala MD #[address] [address] PCP - General Family Medicine 09/01/23 Yuliana Florez, FRUIT OR NUT GROWER Advanced Practice Nurse 01/24/18 Michel Yanez, CANNON PINION ADJUSTER, STEEP TENDER #2 [place] [address] Nurse Practitioner Advanced Practice Nurse 12/28/21 Laureano Quigley MD #2 [facility] [address] [place] [address] Consulting Physician Urology 02/04/22 Elsa Kenny, CANNON PINION ADJUSTER, STEEP TENDER #2 [facility] YANELIMiller [facility], [facility] [address] [place] [address] Nurse Practitioner Cardiology 07/14/23 09/17/24 Saurav Goyal MD #2 [place] [address] Consulting Physician Pulmonary Disease 07/28/23 Yuni Meneses, [facility] Mint Machine Operator Key Account Coordinator 11/27/23 12/04/23 Ayala Weaver, CANNON PINION ADJUSTER, TRUCK BODY REPAIRER #2 [place] [address] Nurse Practitioner Neurology 12/18/23 documented as of this encounter
--- OUTSIDE RECORDS SUMMARY | 2025-02-22 12:12 | XMS_ITS | Encounter Summary ---
Author Organization [facility] Address [address] [place] [address] Phone Care Team Providers Care Piping Blocker Name Role Phone Yuliana Florez APN Unavailable Unavailab Damaso Chaudhari MD Primary Care Provider [phone] Michel Yanez APRN, MOBILITY SPECIALIST Unavailable [phone] Laureano Quigley MD Unavailable [phone] Elsa Kenny APRN, MOBILITY SPECIALIST Unavailable + [phone] Saurav Goyal MD Unavailable Homer Alcala MD Primary Care Provider [phone] Yuni Meneses HIGH SCHOOL COORDINATOR Unavailable Unavailab Ayala Orozco APRN, SHUTTLE SPOTTER Unavailable + [phone] Reason for Visit * Reason Comments Medication Refill Encounter Details Date Type Department Care Team (Late st Contact Info) Description 07/28/2023 Refill [facility] - Family Medicine - [place] [address] [place] [address] Liset Foote PAC [address]2 [place] [address] Medication Refill Social History Tobacco Use Types [...] 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 Requested Prescriptions Pending Prescriptions Disp Refills albuterol 108 (90 Base) MCG/ACT Aerosol Solution [Pharmacy Med Name: ALBUTEROL SULFATE HFA HFA AEROSOL SOLN] 8.5 g 0 Sig: TWO (2) PUFFS INHALED EVERY 4-6 HOURS NEEDED FOR COUGH OR SHORTNESS OF BREATH Short Acting Inhaled Beta-Agonists Protocol Passed - 07/28/2023 12:54 PM Passed - Visit with relevant provider in past 12 months or upcoming 90 days Recent Visits Date Type Provider Dept 07/10/23 Office Visit Ainsley Coraes DO [facility] 06/30/23 Office Visit Liset Foote, [facility] [place] 10/06/22 Office Visit Damaso Vazquez MD [facility] 08/29/22 Telemedicine Damaso Vazquez MD [facility] Showing recent visits within past 365 days and meeting all other requirements Future Appointments No visits were found meeting these conditions. Showing future appointments within next 90 days and meeting all other requirements Refused Prescriptions Disp Refills Breo Ellipta 100-25 MCG/ACT AEROSOL POWDER, BREATH ACTIVATED [Pharmacy Med Name: BREO ELLIPTA 100-25 AERO POW BR ACT] 60 Each 1 Sig: TAKE 1 PUFF BY INHALATION DAILY. Inhaled Combinations Protocol Passed - 07/28/2023 12:54 PM Passed - Visit with relevant provider in past 12 months or upcoming 90 days Recent Visits Date Type Provider Dept 07/10/23 Office Visit Ainsley Coreas, [facility] 06/30/23 Office Visit Liset Foote, DOMENICA [facility] 10/06/22 Office Visit Damaso Vazquez MD [facility] 08/29/22 Telemedicine Damaso Vazquez MD [facility] Showing recent visits within past 365 days and meeting all other requirements Future Appointments No visits were found meeting these conditions. Showing future appointments within next 90 days and meeting all other requirements Passed - Active short-acting beta agonist prescription clonazePAM (KlonoPIN) 1 MG Tablet [Pharmacy Med Name: CLONAZEPAM 1MG TABLET] 30 Tablet 0 Sig: TAKE 1 TABLET BY MOUTH NIGHTLY. Not Delegated - Clonazepam Protocol Failed - 07/28/2023 12:54 PM Failed - This refill cannot be delegated Passed - Visit with relevant provider in past 12 months or upcoming 90 days Recent Visits Date Type Provider Dept 07/10/23 Office Visit Ainsley Coreas DO [facility] 06/30/23 Office Visit Liset Foote, DOMENICA [facility] [place] 10/06/22 Office Visit Damaso Vazquez MD [facility] 08/29/22 Telemedicine Damaso Vazquez MD [facility] Showing recent visits within past 365 days and meeting all other requirements Future Appointments No visits were found meeting these conditions. Showing future appointments within next 90 days and meeting all other requirements QUEtiapine (SEROquel) 100 MG Tablet [Pharmacy Med Name: QUETIAPINE FUMARATE 100MG TABLET] 60 Tablet0 Sig: TAKE ONE (1) TABLET BY MOUTH TWICE DAILY Not Delegated - Antipsychotic Protocol Failed - 07/28/2023 12:54 PM Failed - This refill cannot be delegated Passed - Visit with relevant provider in past 12 months or upcoming 90 days Recent Visits Date Type Provider Dept 07/10/23 Office Visit Ainsley Coreas, DO [facility] 06/30/23 Office Visit Liset Foote, PAC [facility] 10/06/22 Office [facility] 08/29/22 Telemedicine Damaso Vazquez MD [facility] Showing recent visits within past 365 days and meeting all other requirements Future Appointments No visits were found meeting these conditions. Showing future appointments within next 90 days and meeting all other requirements * Telephone Encounter - Darline Seth RN - 07/28/2023 3:33 PM CDT Breo refill on file according to last Rx * Telephone Encounter - Darline Seth RN - 07/28/2023 3:32 PM CDT Images from the original note were not included. clonazePAM Dispensed Days Supply Quantity Provider Pharmacy CLONAZEPAM 07/10/2023 30 30 , [facility] Refill too soon - next fill date 08/09/23 documented in this encounter Plan of Treatment Upcoming Encounters Date Type Department Care Team (Latest Contact Info) Description 03/03/2025 10:00 AM SUBACUTE NURSE Office Visit [facility] Medical Group - Orthopedic Surgery - [place] [address] [place] [address] Homer Alcala MD #2 [facility] [address] [place] [address] Ann Graham MD #[address] [address] 03/04/2025 2:00 PM SUBACUTE NURSE [facility] - [place] [address] [place] [address] Homer Alcala MD #[address] [address] Carolin Sykes, ENTERTAINMENT DIRECTOR, MOBILITY SPECIALIST [address] [address] 03/19/2025 10:15 AM SUBACUTE NURSE Physical [facility] [address] [phone] Sujata Winn, ENTERTAINMENT DIRECTOR, MOBILITY SPECIALIST [address] [place] [address] Michelle Patel, PT [place] Discharge Disposition: Discharged to home or Selfcare 03/21/2025 1:30 PM SUBACUTE NURSE [facility] - [facility]rology - [place] [address] [place] [address] Ayala Weaver, ENTERTAINMENT DIRECTOR, SHUTTLE SPOTTER #2 [place] [address] 04/29/2025 9:00 AM SUBACUTE NURSE Office [facility] - Neurology - [place] [address] [place] [address] Ayala Weaver, ENTERTAINMENT DIRECTOR, SHUTTLE SPOTTER #2 [place] [address] 05/09/2025 11:00 AM SUBACUTE NURSE Office Visit [facility] - Pulmonology & Sleep Medicine - [place] [address] [place] [address] Saurav Goyal MD #2 [place] [address] documented as of this encounter Goals Goal Patient Goal Type Associated Problems Recent Progress Patient-Stated? Author Depression Behavioral Health On track(2024 4:40 PM CDT) No Flora Yip LCSW Note: GOAL: Lisseth will manage depressive symptoms more effectively. Goal Reviewed with: patient today Readiness to change: Ready to change Department associated with goal: [facility] Steps to [...] Ready to change Department associated with goal: [facility] Steps to [...] 19 04/05/2024 04/05/2024 04/05/2024 12:3 5 PM SUBACUTE NURSE COVID - 19 05/19/2024 05/19/2024 05/19/2024 6:18 PM CDT Assessment Noted Time PHQ-9 Depression Total Score: 19 024 7:46 AM CDT documented as of this encounter Care Teams Piping Blocker Relationship Specialty Start Date End Date Damaso Vazquez MD PCP - General Family Medicine 05/28/20 08/31/23 Homer Alcala MD #2 [facility] [facility] [address] [place] [address] PCP - General Family Medicine 09/01/23 Yuliana Florez ORDNANCE OFFICER Advanced Practice Nurse 01/24/18 Michel Yanez APRN, MOBILITY SPECIALIST #2 [place] [address] Nurse Practitioner Advanced Practice Nurse 12/28/21 Laureano Quigley MD #2 [facility] [address] [place] [address] Consulting Physician Urology 02/04/22 Elsa Kenny, ENTERTAINMENT DIRECTOR, MOBILITY SPECIALIST #2 [facility] [place] [facility], [facility] [address] [place] [address] Nurse Practitioner Cardiology 07/14/23 09/17/24 Saurav Goyal MD #2 [place] [address] Consulting Physician Pulmonary Disease 07/28/23 Yuni Meneses, [facility]OL [facility] [employer] Belt Weaver 11/27/23 12/04/23 Ayala Weaver, ENTERTAINMENT DIRECTOR, SHUTTLE SPOTTER #2 [place] [address] Nurse Practitioner Neurology 12/18/23 documented as of this encounter
--- OUTSIDE RECORDS SUMMARY | 2025-02-22 12:12 | XMS_ITS | Encounter Summary ---
Author Organization [facility] Address [address] [place] [address] Phone Care Team Providers Care Guest Advisor Name Role Phone Yuliana Florez APN Unavailable Unavailab Damaso Chaudhari MD Primary Care Provider Michel Yanez APRN, ASL INTERPRETER Unavailable [phone] Laureano Quigley MD Unavailable [phone] Elsa Kenny APRN, ASL INTERPRETER Unavailable + [phone] Saurav Goyal MD Unavailable Homer Alcala MD Primary Care Provider [phone] Yuni Meneses CONTRACTING MANAGER Unavailable Unavailab Ayala Orozco APRN, COAL WHEELER Unavailable + [phone] Reason for Visit * Reason Comments Medication Refill Encounter Details Date Type Department Care Team (Late st Contact Info) Description 07/28/2023 Refill [facility] - Family Medicine - [place] [address] [place] [address] Liset Foote PAC [address] [place] [address] Medication Refill Social History Tobacco Use Types [...] 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 Famotidine Dispensed Days Supply Quantity Provider Pharmacy FAMOTIDINE 20 MG TABS 06/29/2023 30 30 Tablet Jenae Otero APRN, ASL INTERPRETER [facility]... Medication failed the protocol, provider to review and approve the medication order if appropriate. Requested Prescriptions Pending Prescriptions Disp Refills famotidine (PEPCID) 20 MG Tablet [Pharmacy Med Name: FAMOTIDINE 20MG TABLET] 30 Tablet 0 Sig: TAKE ONE (1) TABLET BY MOUTH DAILY H2 Antagonists Protocol Failed - 07/28/2023 8:02 AM Failed - Active on medication list Passed - Visit with relevant provider in past 12 months or upcoming 90 days Recent Visits Date Type Provider Dept 07/10/23 Office Visit [facility] 06/30/23 Office Visit Liset Foote PAC [facility] 10/06/22 Office Visit [facility] 08/29/22 Telemedicine Damaso Vazquez MD [facility] Showing recent visits within past 365 days and meeting all other requirements Future Appointments No visits were found meeting these conditions. Showing future appointments within next 90 days and meeting all other requirements documented in this encounter Plan of Treatment Upcoming Encounters Date Type Department Care Team (Latest Contact Info) Description 03/03/2025 10:00 AM MEDIA RECONCILIATION SPECIALIST Office Visit [facility] - Orthopedic Surgery - [place] [address] [place] [address] Homer Alcala MD #[address] [address] Ann Graham MD #[address] [address] 03/04/2025 2:00 PM MEDIA RECONCILIATION SPECIALIST Office Visit [facility] - [place] [address] [place] [address] Homer Alcala MD #[address] [address] Carolin Sykes APRN, ASL INTERPRETER 2 [facility] [address] [place] [address] 03/19/2025 10:15 AM MEDIA RECONCILIATION SPECIALIST Physical Therapy [facility] at [facility] 200 [facility] [address] [place] [address] Sujata Winn, DEVELOPER SUPPORT ENGINEER, ASL INTERPRETER [address] [place] [address] Michelle Patel, PT [place] Discharge Disposition: Discharged to home or Selfcare 03/21/2025 1:30 PM MEDIA RECONCILIATION SPECIALIST Office [facility] #2 [facility] [place] [address] Ayala Weaver DEVELOPER SUPPORT ENGINEER, COAL WHEELER #2 [place] [address] 04/29/2025 9:00 AM MEDIA RECONCILIATION SPECIALIST Office Visit [facility] Neu[facility] #2 [place] [address] Ayala Weaver, DEVELOPER SUPPORT ENGINEER, COAL WHEELER #2 [place] [address] 05/09/2025 11:00 AM MEDIA RECONCILIATION SPECIALIST Office Visit [facility] Pulmonology & Sleep Medicine - [place] [address] [place] [address] Saurav Goyal MD #2 [place] [address] documented as of this encounter Goals Goal Patient Goal Type Associated Problems Recent Progress Patient-Stated? Author Depression Behavioral Health On track(2024 4:40 PM CDT) Flora [place], ORNAMENT MAKER HAND Note: GOAL: Lisseth will manage depressive symptoms more effectively. Goal Reviewed with: patient today Readiness to change: Ready to change Department associated with goal: [facility] Steps to [...] Ready to change Department associated with goal: [facility] Steps to [...] 19 04/05/2024 04/05/2024 04/05/2024 12:3 5 PM MEDIA RECONCILIATION SPECIALIST COVID - 19 05/19/2024 05/19/2024 05/19/2024 6:18 PM CDT Assessment Noted Time PHQ-9 Depression Total Score: 19 05 024 7:46 AM CDT documented as of this encounter Care Teams Guest Advisor Relationship Specialty Start Date End Date Damaso Vazquez MD PCP - General Family Medicine 05/28/20 08/31/23 Homer Alcala MD #2 [place] [address] PCP - General Family Medicine 09/01/23 Yuliana Florez APN Advanced Practice Nurse 01/24/18 Michel Yanez, DEVELOPER SUPPORT ENGINEER, ASL INTERPRETER #[address] [place] [address] Nurse Practitioner Advanced Practice Nurse 12/28/21 Laureano Quigley MD #2 [facility] [address] [place] [address] Consulting Physician Urology 02/04/22 Elsa Kenny, DEVELOPER SUPPORT ENGINEER, ASL INTERPRETER #2 [facility], [facility] [address] [place] [address] Nurse Practitioner Cardiology 07/14/23 09/17/24 Saurav Goyal MD #2 [place] [address] Consulting Physician Pulmonary Disease 07/28/23 Yuni Meneses, [facility] Boom Tender Milking Worker 11/27/23 12/04/23 Ayala Weaver, DEVELOPER SUPPORT ENGINEER, COAL WHEELER #2 [place] [address] Nurse Practitioner Neurology 12/18/23 documented as of this encounter
--- OUTSIDE RECORDS SUMMARY | 2025-02-22 12:12 | XMS_ITS | Encounter Summary ---
Author Organization [facility] Address [address] [place] [address] Phone Care Team Providers Care Dyeing Machine Back Tender Name Role Phone Yuliana Florez APN Unavailable Unavailab Felecia Hendricks DOPE FIRER, TRUCK CLEANER Primary Care Provider Damaso Vazquez MD Primary Care Provider [phone] Michel Yanez APRN, TRUCK CLEANER Unavailable [phone] Laureano Quigley MD Unavailable [phone] Elsa Kenny APRN, TRUCK CLEANER Unavailable + [phone] Saurav Goyal MD Unavailable Homer Alcala MD Primary Care Provider [phone] Yuni MenesesW Unavailable Unavailab Ayala Orozco DOPE FIRER, CHANNELER INSOLE Unavailable [phone] Reason for Visit * Reason Comments Medication Refill Encounter Details Date Type Department Care Team (Late st Contact Info) Description 02/26/[facility] [address] [place] [address] Felecia Saenz, DOPE FIRER, TRUCK CLEANER [address] [place] [address] Medication Refill Social History Tobacco Use Types Packs/Day Years Used Date Smoking Tobacco: Former Cigarettes 0.5 30 0 03/13/1988 - 03/13/2018 Smokeless Tobacco: Never Alcohol Use Standard [...] 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 No / Unsure 02/14/2020 3:58 PM BAKERY HELPER documented as of this encounter Miscellaneous Notes * Telephone Encounter - Shirley Fuchs RN - 02/26/2020 11:12 AM BAKERY HELPER Medication approved and signed per standing order protocol. RY HELPER * Telephone Encounter - Lakesha Cabrera CMA - 02/26/2020 10:27 AM BAKERY HELPER Rerouting RY HELPER documented in this encounter Plan of Treatment Upcoming Encounters Date Type Department Care Team (Latest Contact Info) Description 03/03/2025 10:00 AM BAKERY HELPER Office Visit [facility] Medical Group - [facility] #2 [place] [address] Homer Alcala MD #2 [facility] [address] [place] [address] Ann Graham MD #2 [facility] [address] [place] [address] 03/04/2025 2:00 PM BAKERY HELPER [facility] - [place] #[address] [place] [address] Homer Alcala MD #2 [facility] [address] [place] [address] Carolin Sykes, DOPE FIRER, TRUCK CLEANER [address] [address] 03/19/2025 10:15 AM BAKERY HELPER Physical [facility] 200 [facility] [address] [place] [address] Sujata Winn, DOPE FIRER, TRUCK CLEANER [address] [place] [address] Michelle Patel, PT [place] Discharge Disposition: Discharged to home or Selfcare 03/21/2025 1:30 PM BAKERY HELPER [facility] - [place] #2 [place] [address] Ayala Weaver, DOPE FIRER, [facility] #2 [place] [address] 04/29/2025 9:00 AM BAKERY HELPER [facility] - [place] #2 [place] [address] Ayala Weaver APRN, CHANNELER INSOLE #2 [place] [address] 05/09/2025 11:00 AM BAKERY HELPER Office Visit [facility] - Pulmonology & Sleep Medicine [facility] #2 [place] [address] Saurav Goyal MD #2 [place] [address] documented as of this encounter Goals Goal Patient Goal Type Associated Problems Recent Progress Patient-Stated? Author Depression Behavioral Health On track(2024 4:40 PM CDT) Flora Miller LCSW Note: GOAL: Lisseth will manage depressive symptoms more effectively. Goal Reviewed with: patient today Readiness to change: Ready to change Department associated with goal: [facility] Steps to achieve goal: [...] 19 04/05/2024 04/05/2024 04/05/2024 12:3 5 PM BAKERY HELPER COVID - 19 05/19/2024 05/19/2024 05/19/2024 6:18 PM CDT Assessment Noted Time PHQ-9 Depression Total Score: 1 01/12/20 19 5:00 PM BAKERY HELPER documented as of this encounter Care Teams Dyeing Machine Back Tender Relationship Specialty Start Date End Date Felecia Saenz APRN, TRUCK CLEANER [address] [place] [address] PCP - General Advanced Practice Nurse 03/14/18 05/27/20 Damaso Vazquez MD [address] [place] [address] PCP - General Family Medicine 05/28/20 08/31/23 Homer Alcala MD #2 [facility] [address] [place] [address] PCP - General Family Medicine 09/01/23 Yuliana Florez, ADMINISTRATIVE UNDERWRITER Advanced Practice Nurse 01/24/18 Michel Yanez, DOPE FIRER, TRUCK CLEANER #[address] [place] [address] Nurse Practitioner Advanced Practice Nurse 12/28/21 Laureano Quigley MD #2 [facility] [address] [place] [address] Consulting Physician Urology 02/04/22 Elsa Kenny, DOPE FIRER, TRUCK CLEANER #2 [facility] [address] [place] [address] Nurse Practitioner Cardiology 07/14/23 09/17/24 Saurav Goyal MD #2 [place] [address] Consulting Physician Pulmonary Disease 07/28/23 Yuni Meneses, PIE BOTTOMER [place] Gallery Host Fisheries Specialist 11/27/23 12/04/23 Ayala Weaver, DOPE FIRER, CHANNELER INSOLE #[address] [place] [address] Nurse Practitioner Neurology 12/18/23 documented as of this encounter
--- OUTSIDE RECORDS SUMMARY | 2025-02-22 12:12 | XMS_ITS | Encounter Summary ---
Author Organization [facility] Address [address] [place] [address] Phone Care Team Providers Care Deck Engine Operator Name Role Phone Yuliana Florez APN Unavailable Unavailab Damaso Chaudhari MD Primary Care Provider [phone] Michel Yanez APRN, COLLECTIONS DIRECTOR Unavailable [phone] Laureano Quigley MD Unavailable [phone] Elsa Kenny APRN, COLLECTIONS DIRECTOR Unavailable + [phone] Saurav Goyal MD Unavailable Homer Alcala MD Primary Care Provider [phone] Yuni Meneses ACID DIPPER Unavailable Unavailab Ayala Orozco APRN, GUEST SERVICES COORDINATOR Unavailable + [phone] Reason for Visit * Reason Comments Medication Refill Encounter Details Date Type Department Care Team (Late st Contact Info) Description 08/07/2023 Refill [facility] - Family Medicine - [place] [address] [place] [address] Damaso Vazquez MD [address] [place] [address] Medication Refill Social History Tobacco Use Types [...] 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 Medication failed the protocol, provider to review and approve the medication order if appropriate. Requested Prescriptions Pending Prescriptions Disp Refills fluconazole (DIFLUCAN) 150 MG Tablet [Pharmacy Med Name: FLUCONAZOLE 150MG TABLET] 1 Tablet 0 Sig: TAKE ONE (1) TABLET BY MOUTH NEEDED DIRECTED FOR YEAST INFECTION Not Delegated - Off Protocol Failed - 08/07/2023 10:15 AM Failed - This refill cannot be delegated Passed - Visit with relevant provider in past 12 months or upcoming 90 days Recent Visits Date Type Provider Dept 07/10/23 [facility] 06/30/23 Office Visit [facility] Foote, [facility] 10/06/22 Office Visit Damaso Vazquez MD [facility] 08/29/22 Telemedicine Damaso Vazquez MD [facility] Showing recent visits within past 365 days and meeting all other requirements Future Appointments No visits were found meeting these conditions. Showing future appointments within next 90 days and meeting all other requirements documented in this encounter Plan of Treatment Upcoming Encounters Date Type Department Care Team (Latest Contact Info) Description 03/03/2025 10:00 AM RESEARCH AND INSIGHTS EXECUTIVE Office Visit [facility] - Orthopedic Surgery - [place] [address] [place] [address] Homer Alcala MD #[address] [address] Ann Graham MD #[address] [address] 03/04/2025 2:00 PM RESEARCH AND INSIGHTS EXECUTIVE Office Visit [facility] Cardiology - [place] [address] [place] [address] Homer Alcala MD #[address] [address] Carolin Sykes APRN, COLLECTIONS DIRECTOR [address] [address] 03/19/2025 10:15 AM RESEARCH AND INSIGHTS EXECUTIVE Physical Therapy [facility] at [facility] [address] [address] Sujata Winn, WIND TURBINE ELECTRICAL ENGINEER, COLLECTIONS DIRECTOR [address] [place] [address] Michelle Patel, PT [place] Discharge Disposition: Discharged to home or Selfcare 03/21/2025 1:30 PM RESEARCH AND INSIGHTS EXECUTIVE Office Visit [facility] Neurology - [place] #2 [place] [address] Ayala Weaver, WIND TURBINE ELECTRICAL ENGINEER, GUEST SERVICES COORDINATOR #2 [place] [address] 04/29/2025 9:00 AM RESEARCH AND INSIGHTS EXECUTIVE Office Visit [facility] Neurology - [place] [address]2 [place] [address] Ayala Weaver, WIND TURBINE ELECTRICAL ENGINEER, GUEST SERVICES COORDINATOR #2 [place] [address] 05/09/2025 11:00 AM RESEARCH AND INSIGHTS EXECUTIVE Office Visit [facility] Pulmonology & Sleep Medicine [facility] #2 [place] [address] Saurav Goyal MD #2 [place] [address] documented as of this encounter Goals Goal Patient Goal Type Associated Problems Recent Progress Patient-Stated? Author Depression Behavioral Health On track(2024 4:40 PM CDT) Flora Miller, PRODUCTION DISPATCHER Note: GOAL: Lisseth will manage depressive symptoms more effectively. Goal Reviewed with: patient today Readiness to change: Ready to change Department associated with goal: [facility] Steps to [...] On track(2024 4:40 PM CDT) Flora Miller, PRODUCTION DISPATCHER Note: GOAL: Lisseth will process feelings of grief and loss related to her son. Goal Reviewed with: patient today Readiness to change: Ready to change Department associated with goal: [facility] Steps to [...] 19 04/05/2024 04/05/2024 04/05/2024 12:3 5 PM RESEARCH AND INSIGHTS EXECUTIVE COVID - 19 05/19/2024 05/19/2024 05/19/2024 6:18 PM CDT Assessment Noted Time PHQ-9 Depression Total Score: 19 024 7:46 AM CDT documented as of this encounter Care Teams Deck Engine Operator Relationship Specialty Start Date End Date Damaso Vazquez MD PCP - General Family Medicine 05/28/20 08/31/23 Homer Alcala MD #[address] [address] PCP - General Family Medicine 09/01/23 Yuliana Florez APN Advanced Practice Nurse 01/24/18 Michel Yanez WIND TURBINE ELECTRICAL ENGINEER, COLLECTIONS DIRECTOR #2 [place] [address] Nurse Practitioner Advanced Practice Nurse 12/28/21 Laureano Quigley MD [address] [facility], [facility] [address] [place] [address] Consulting Physician Urology 02/04/22 Elsa Kenny, WIND TURBINE ELECTRICAL ENGINEER, COLLECTIONS DIRECTOR #2 [facility], [facility] [address] [place] [address] Nurse Practitioner Cardiology 07/14/23 09/17/24 Saurav Goyal MD #2 [place] [address] Consulting Physician Pulmonary Disease 07/28/23 Yuni Meneses, ACID DIPPER MD Hose Inspector Military [employer] 11/27/23 12/04/23 Ayala Weaver, WIND TURBINE ELECTRICAL ENGINEER, GUEST SERVICES COORDINATOR [address] [place] [address] Nurse Practitioner Neurology 12/18/23 documented as of this encounter
--- OUTSIDE RECORDS SUMMARY | 2025-02-22 12:12 | XMS_ITS | Encounter Summary ---
Author Organization [facility] Address [address] [place] [address] Phone Care Team Providers Care Licensed Mortgage Loan Officer Name Role Phone Yuliana Florez APN Unavailable Unavailab Damaso Chaudhari MD Primary Care Provider [phone] Michel Yanez APRN, WASHERY ENGINEER Unavailable [phone] Laureano Quigley MD Unavailable [phone] Elsa Kenny APRN, WASHERY ENGINEER Unavailable + [phone] Saurav Goyal MD Unavailable Homer Alcala MD Primary Care Provider [phone] Yuni Meneses GRIEVANCE MANAGER Unavailable Unavailab Ayala Orozco APRN, POULTRY HATCHERY SUPERVISOR Unavailable + [phone] Reason for Visit * Reason Comments Medication Refill Encounter Details Date Type Department Care Team (Late st Contact Info) Description 07/27/2023 Refill [facility] - Family Medicine [facility] [address] [place] [address] Damaso Vazquez MD #[address] [place] [address] Medication Refill Social History Tobacco Use Types [...] 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 Requested Prescriptions Pending Prescriptions Disp Refills atorvastatin (LIPITOR) 40 MG Tablet [Pharmacy Med Name: ATORVASTATIN CALCIUM 40MG TABLET] 30 Tablet0 Sig: TAKE ONE (1) TABLET BY MOUTH AT BEDTIME Hmg CoA Reductase Inhibitors Protocol Failed - 07/27/2023 11:59 AM Failed - Lipid panel in past 12 months LDL Date Value Ref Range Status 04/19/2022 64 0 - 130 mg/dL Final Passed - Visit with relevant provider in past 12 months or upcoming 90 days Recent Visits Date Type Provider Dept 07/10/23 Office Visit [facility]ley [facility]as, [facility] 06/30/23 Office Visit Liset Foote, PAC [facility] [place] 10/06/22 Office Visit Damaso Vazquez MD [facility] 08/29/22 Telemedicine Damaso Vazquez MD [facility] Showing recent visits within past 365 days and meeting all other requirements Future Appointments No visits were found meeting these conditions. Showing future appointments within next 90 days and meeting all other requirements Passed - CMP in past 12 months SODIUM Date Value Ref Range Status 07/03/2023 142 136 - 145 mmol/L Final POTASSIUM Date Value Ref Range Status 07/03/2023 3.2 (L) 3.5 - 5.1 mmol/L Final CHLORIDE Date Value Ref Range Status 07/03/2023 105 98 - 107 mmol/L Final CO2, VENOUS Date Value Ref Range Status 07/03/2023 24 22 - 30 mmol/L Final ANION GAP Date Value Ref Range Status 07/03/2023 16.2 <18.0 mmol/L Final GLUCOSE Date Value Ref Range Status 07/03/2023 85 70 - 99 mg/dL Final BUN Date Value Ref Range Status 07/03/2023 10 10 - 20 mg/dL Final CREATININE, BLOOD Date Value Ref Range Status 07/03/2023 0.73 0.60 - 1.00 mg/dL Final BUN/CREATININE RATIO Date Value Ref Range Status 07/03/2023 14 12 - 20 ratio Final TOTAL PROTEIN Date Value Ref Range Status 07/03/2023 7.8 6.3 - 8.2 g/dL Final ALBUMIN Date Value Ref Range Status 07/03/2023 3.9 3.5 - 5.0 g/dL Final A/G RATIO Date Value Ref Range Status 07/03/2023 1.0 1.0 - 2.2 Final CALCIUM Date Value Ref Range Status 07/03/2023 9.5 8.7 - 10.5 mg/dL Final T BILI Date Value Ref Range Status 07/03/2023 0.3 0.2 - 1.2 mg/dL Final SGOT (AST) Date Value Ref Range Status 07/03/2023 23 5 - 34 U/L Final SGPT (ALT) Date Value Ref Range Status 07/03/2023 24 0 - 55 U/L Final ALKALINE PHOSPHATASE Date Value Ref Range Status 07/03/2023 131 40 - 150 U/L Final GFR, EST. NONAFRICAN Date Value Ref Range Status 07/03/2023 >60 >=60 Final GFR, EST. Date Value Ref Range Status 07/03/2023 >60 >=60 Final GFR, ESTIMATED Date Value Ref Range Status 07/03/2023 >60 >=60 Final Comment: Creatinine Clearance is the preferred criteria for selecting drug dose adjustments in renally impaired patients. The GFR is provided as additional pertinent clinical information. GFR is reported in mL/min/1.73 sq m. Calculation based on the Chronic Kidney Disease Epidemiology Collaboration (CKD- EPI) equation refitwithout adjustment for race. levETIRAcetam (KEPPRA) 500 MG Tablet [Pharmacy Med Name: LEVETIRACETAM 500MG TABLET] 60 Tablet 0 Sig: TAKE ONE (1) TABLET BY MOUTH TWICE DAILY Not Delegated - Anticonvulsants Excluding Benzodiazepines Protocol Failed - 07/27/2023 11:59 AM Failed - This refill cannot be delegated Passed - Visit with relevant provider in past 12 months or upcoming 90 days Recent Visits Date Type Provider Dept 07/10/23 Office Visit Ainsley Coreas, [facility] 06/30/23 Office Visit Liset Foote, [facility] 10/06/22 Office Visit Damaso Vazquez MD [facility] 08/29/22 Telemedicine Damaso Vazquez MD [facility] Showing recent visits within past 365 [...] Not Delegated - Antipsychotic Protocol Failed - 07/27/2023 11:59 AM Failed - This refill cannot be delegated Passed - Visit with relevant provider in past 12 months or upcoming 90 days Recent Visits Date Type Provider Dept 07/10/23 Office Visit Ainsley Coreas, DO [facility] 06/30/23 Office Visit Liset Foote, PAC [facility] 10/06/22 Office Visit Damaso Vazquez MD [facility] 08/29/22 Telemedicine Damaso Vazquez MD [facility] Showing recent visits within past 365 days and meeting all other requirements Future Appointments No visits were found meeting these conditions. Showing future appointments within next 90 days and meeting all other requirements clopidogrel (PLAVIX) 75 MG Tablet [Pharmacy Med Name: CLOPIDOGREL 75MG TABLET] 30 Tablet 0 Sig: TAKE ONE (1) TABLET BY MOUTH DAILY Plavix Protocol Passed - 07/27/2023 11:59 AM Passed - CBC on record in past 12 months WBC Date Value Ref Range Status 07/03/2023 12.01 (H) 4.00 - 12.00 10(3)/mcL Final WBC ESTERASE Date Value Ref Range Status 11/03/2018 Negative Negative Final RBC Date Value Ref Range Status 07/03/2023 3.74 (L) 3.80 - 5.30 10(6)/mcL Final HEMATOCRIT (HCT) Date Value Ref Range Status 07/03/2023 32.8 (L) 36.0 - 47.0 % Final HEMOGLOBIN (HGB) Date Value Ref Range Status 07/03/2023 11.1 (L) 12.0 - 15.8 g/dL Final MCV Date Value Ref Range Status 07/03/2023 87.7 82.0 - 96.0 fL Final MCH Date Value Ref Range Status 07/03/2023 29.7 26.0 - 34.0 pg Final MCHC Date Value Ref Range Status 07/03/2023 33.8 31.0 - 36.0 g/dL Final Passed - Visit with relevant provider in past 12 months or upcoming 90 days Recent Visits Date Type Provider Dept 07/10/23 Office Visit Ainsley Coreas, [facility] 06/30/23 Office Visit Liset Foote, PAC [facility] [place] 10/06/22 Office Visit Damaso Vazquez MD [facility] 08/29/22 Telemedicine Damaso Vazquez MD [facility] Showing recent visits within past 365 days and meeting all other requirements Future Appointments No visits were found meeting these conditions. Showing future appointments within next 90 days and meeting all other requirements traZODone (DESYREL) 50 MG Tablet [Pharmacy Med Name: TRAZODONE HYDROCHLORIDE 50MG TABLET] 30 Tablet0 Sig: TAKE ONE (1) TABLET BY MOUTH AT BEDTIME Serotonin Modulators (6 Month Refill Only) Protocol Failed - 07/27/2023 11:59 AM Failed - Patient has established therapy with Serotonin Modulators for at least 6 months Passed - Visit with relevant provider in past 6 months or upcoming 90 days Recent Visits Date Type Provider Dept 07/10/23 Office Visit Ainsley Coreas, DO [facility] 06/30/23 Office Visit Liset Foote [facility] Showing recent visits within past 182 days and meeting all other requirements Future Appointments No visits were found meeting these conditions. Showing future appointments within next 90 days and meeting all other requirements Passed - Has an encounter in the past 6 months with a depression or anxiety visit diagnosis Passed - No PRN Use for Trazodone levothyroxine (SYNTHROID) 100 MCG Tablet [Pharmacy Med Name: LEVOTHYROXINE SODIUM 100MCG TABLET] 30Tablet 0 Sig: TAKE ONE (1) TABLET BY MOUTH AT 6:30 Thyroid Hormones Protocol Failed - 07/27/2023 11:59 AM Failed - Normal TSH in past 12 months TSH Date Value Ref Range Status 07/20/2022 0.018 (L) 0.270 - 4.200 mIU/L Final Passed - Visit with relevant provider in past 12 months or upcoming 90 days Recent Visits Date Type Provider Dept 07/10/23 Office Visit Ainsley Coreas DO [facility] 06/30/23 Office Visit Liset Foote PAC [facility] 10/06/22 Office Visit Damaso Vazquez MD [facility] 08/29/22 Telemedicine Damaso Vazquez MD [facility] Showing recent visits within past 365 days and meeting all other requirements Future Appointments No visits were found meeting these conditions. Showing future appointments within next 90 days and meeting all other requirements Refused Prescriptions Disp Refills clonazePAM (KlonoPIN) 1 MG Tablet [Pharmacy Med Name: CLONAZEPAM 1MG TABLET] 30 Tablet 0 Sig: TAKE 1 TABLET BY MOUTH NIGHTLY. Not Delegated - Clonazepam Protocol Failed - 07/27/2023 11:59 AM Failed - This refill cannot be delegated Passed - Visit with relevant provider in past 12 months or upcoming 90 days Recent Visits Date Type Provider Dept 07/10/23 Office Visit Ainsley Coreas DO [facility] 06/30/23 Office Visit Liset Foote, [facility] 10/06/22 Office Visit Damaso Vazquez MD [facility] 08/29/22 Telemedicine Damaso Vazquez MD [facility] Showing recent visits within past 365 days and meeting all other requirements Future Appointments No visits were found meeting these conditions. Showing future appointments within next 90 days and meeting all other requirements * Telephone Encounter - Darline Seth RN - 07/28/2023 8:48 AM CDT Images from the original note were not included. clonazePAM Dispensed Days Supply Quantity Provider Pharmacy CLONAZEPAM 07/10/2023 30 30 , LIZZETTE BAILEY 5 [email or web address] documented in this encounter Plan of Treatment Upcoming Encounters Date Type Department Care Team (Latest Contact Info) Description 03/03/2025 10:00 AM FINISHING INSPECTOR Office Visit [facility] - Orthopedic Surgery - [place] [address] [place] [address] Homer Alcala MD #2 [facility] [address] [place] [address] Ann Graham MD #2 [facility] [address] [place] [address] 03/04/2025 2:00 PM FINISHING INSPECTOR Office Visit [facility] - Cardiology - [place] [address] [place] [address] Homer Alcala MD #2 [facility] [address] [place] [address] Carolin Sykes, FOCUSING MACHINE OPERATOR, WASHERY ENGINEER 2 [facility] [address] [place] [address] 03/19/2025 10:15 AM FINISHING INSPECTOR [facility] 200 [facility], [address] [place] [address] Sujata Winn, FOCUSING MACHINE OPERATOR, WASHERY ENGINEER [address] [place] [address] Michelle Patel, PT [place] Discharge Disposition: Discharged to home or Selfcare 03/21/2025 1:30 PM FINISHING INSPECTOR [facility] [place] #[address] [place] [address] Ayala Weaver APRN, POULTRY HATCHERY SUPERVISOR #2 [place] [address] 04/29/2025 9:00 AM FINISHING INSPECTOR [facility] [place] #[address] [place] [address] Ayala Weaver APRN, POULTRY HATCHERY SUPERVISOR #2 [place] [address] 05/09/2025 11:00 AM FINISHING INSPECTOR [facility] [place] #[address] [place] [address] Saurav Goyal MD #2 [place] [address] documented as of this encounter Goals Goal Patient Goal Type Associated Problems Recent Progress Patient-Stated? Author Depression Behavioral Health On track(2024 4:40 PM CDT) Flora Miller LCSW Note: GOAL: Lisseth will manage depressive symptoms more effectively. Goal Reviewed with: patient today Readiness to change: Ready to change Department associated with goal: [facility] Steps to achieve [...] Ready to change Department associated with goal: [facility] Steps to achieve [...] 19 04/05/2024 04/05/2024 04/05/2024 12:3 5 PM FINISHING INSPECTOR COVID - 19 05/19/2024 05/19/2024 05/19/2024 6:18 PM CDT Assessment Noted Time PHQ-9 Depression Total Score: 19 024 7:46 AM CDT documented as of this encounter Care Teams Licensed Mortgage Loan Officer Relationship Specialty Start Date End Date Damaso Vazquez MD PCP - General Family Medicine 05/28/20 08/31/23 Homer Alcala MD #2 [facility] [address] [place] [address] PCP - General Family Medicine 09/01/23 Yuliana Florez, INCIDENT HANDLER Advanced Practice Nurse 01/24/18 Michel Yanez, FOCUSING MACHINE OPERATOR, WASHERY ENGINEER #2 [place] [address] Nurse Practitioner Advanced Practice Nurse 12/28/21 Laureano Quigley MD #2 [facility] [address] [place] [address] Consulting Physician Urology 02/04/22 Elsa Kenny, FOCUSING MACHINE OPERATOR, WASHERY ENGINEER #2 [facility] [address] [place] [address] Nurse Practitioner Cardiology 07/14/23 09/17/24 Saurav Goyal MD #2 [place] [address] Consulting Physician Pulmonary Disease 07/28/23 Yuni Meneses, GRIEVANCE MANAGER [place] Paramedic Instructor Senior Software Qa Engineer 11/27/23 12/04/23 Ayala Weaver, FOCUSING MACHINE OPERATOR, POULTRY HATCHERY SUPERVISOR #[address] [place] [address] Nurse Practitioner Neurology 12/18/23 documented as of this encounter
--- OUTSIDE RECORDS SUMMARY | 2025-02-22 12:12 | XMS_ITS | Encounter Summary ---
Author Organization [facility] Address [address] [place] [address] Phone Care Team Providers Care Accounting Consultant Name Role Phone Yuliana Florez APN Unavailable Unavailab Michel Shepherd WAREHOUSE DISTRIBUTION ASSOCIATE, SPINDLE SETTER Unavailable [phone] Laureano Quigley MD Unavailable [phone] Elsa Kenny WAREHOUSE DISTRIBUTION ASSOCIATE, SPINDLE SETTER Unavailable + [phone] Saurav Goyal MD Unavailable Homer Alcala MD Primary Care Provider [phone] Yuni Meneses MANAGER SAP Unavailable Unavailab Ayala Orozco WAREHOUSE DISTRIBUTION ASSOCIATE, ARTIFICIAL FLOWER MAKER Unavailable + [phone] Reason for Visit * Reason Comments Medication Refill Encounter Details Date Type Department Care Team (Late st Contact Info) Description 09/27/2023 Refill [facility] - Family [facility] [address] [place] [address] Damaso Vazquez MD [address] [place] [address] Medication Refill Social History Tobacco Use Types Packs/Day Years Used Date Smoking Tobacco: Former Cigarettes 0 Q uit: 03/13/1988 Smokeless Tobacco: Never Alcohol Use Standard Drinks/Week Comments Not Currently 0 (1 standard drink = 0.6 oz pur e alcohol) seldom [facility] Utilities Answer Date Recorded In the past 12 months has e electric, gas, oil, or water company [...] week 09/18/2023 How often do you attend jew or yazdanism serv ices? 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 on file Not on file documented as of this encounter Functional Status * BP Answer Date of Assessment Author 134/87 09/28/2023 10:40 AM CDT Jere Huston, ACTUARY * Temp Answer Date of Assessment Author 97 09/28/2023 10:40 AM CDT Jere Huston, ACTUARY * Pulse Answer Date of Assessment Author 83 09/28/2023 10:40 AM CDT Jere Huston, ACTUARY * Resp Answer Date of Assessment Author 18 09/28/2023 10:40 AM CDT Jere Huston, ACTUARY * SpO2 Answer Date of Assessment Author 93 09/28/2023 10:40 AM CDT Jere Huston, ACTUARY documented as of this encounter Mental Status * BP Answer Entry Date Author 134/87 09/28/2023 10:40 AM CDT Jere Huston, ACTUARY * Temp Answer Entry Date Author 97 09/28/2023 10:40 AM CDT Jere Huston, ACTUARY * Pulse Answer Entry Date Author 83 09/28/2023 10:40 AM CDT Jere Huston, ACTUARY * SpO2 Answer Entry Date Author 93 09/28/2023 10:40 AM CDT Jere Huston, ACTUARY documented in this encounter Miscellaneous Notes * Telephone Encounter - Darline Seth RN - 09/27/2023 10:15 AM CDT Duplicates - already sent in documented in this encounter Plan of Treatment Upcoming Encounters Date Type Department Care Team (Latest Contact Info) Description 03/03/2025 10:00 AM BRAND SPECIALIST Office Visit [facility] - Orthopedic Surgery [facility] [address] [place] [address] Homer Alcala MD #2 [facility] [address] [place] [address] Ann Graham MD #2 [facility] [address] [place] [address] 03/04/2025 2:00 PM BRAND SPECIALIST Office Visit [facility] Medical [facility] - Cardiology [facility] [address] [place] [phone] Homer Alcala MD #2 [facility] [address] [place] [address] Carolin Sykes, WAREHOUSE DISTRIBUTION ASSOCIATE, SPINDLE SETTER 2 [facility] [address] [place] [address] 03/19/2025 10:15 AM BRAND SPECIALIST [facility] [address] [facility], [facility] [address] [place] [phone] Sujata Winn, WAREHOUSE DISTRIBUTION ASSOCIATE, SPINDLE SETTER [address] [place] [address] Michelle Patel, PT [place] Discharge Disposition: Discharged to home or Selfcare 03/21/2025 1:30 PM BRAND SPECIALIST Office Visit [facility] - [facility] - [place] [address] [place] [address] Ayala Weaver APRN, ARTIFICIAL FLOWER MAKER #[address] [place] [address] 04/29/2025 9:00 AM BRAND SPECIALIST Office Visit [facility] - [facility] - [place] [address] [place] [address] Ayala Weaver APRN, ARTIFICIAL FLOWER MAKER #[address] [place] [address] 05/09/2025 11:00 AM BRAND SPECIALIST Office Visit [facility] - Pulmonology & Sleep Medicine [facility] [address] [place] [address] Saurav Goyal MD [address] [place] [address] documented as of this encounter Goals Goal Patient Goal Type Associated Problems Recent Progress Patient-Stated? Author Depression Behavioral Health On track(2024 4:40 PM CDT) Flora Miller LCSW Note: GOAL: Lisseth will manage depressive symptoms more effectively. Goal Reviewed with: patient today Readiness to change: Ready to change Department associated with goal: [facility] Steps to achieve goal: [...] Ready to change Department associated with goal: [facility] Steps to achieve goal: [...] 19 04/05/2024 04/05/2024 04/05/2024 12:3 5 PM BRAND SPECIALIST COVID - 19 05/19/2024 05/19/2024 05/19/2024 6:18 PM CDT Assessment Noted Time PHQ-9 Depression Total Score: 19 024 7:46 AM CDT documented as of this encounter Care Teams Accounting Consultant Relationship Specialty Start Date End Date Homer Alcala MD [address] [facility] [address] [place] [address] PCP - General Family Medicine 09/01/23 Yuliana Florez, DIMETHYLANILINE SULFATOR OPERATOR Advanced Practice Nurse 01/24/18 Michel Yanez, WAREHOUSE DISTRIBUTION ASSOCIATE, SPINDLE SETTER [address] [place] [address] Nurse Practitioner Advanced Practice Nurse 12/28/21 Laureano Quigley MD [address] [facility] [address] [place] [address] Consulting Physician Urology 02/04/22 Elsa Kenny, WAREHOUSE DISTRIBUTION ASSOCIATE, SPINDLE SETTER #2 [facility] [address] [place] [address] Nurse Practitioner Cardiology 07/14/23 09/17/24 Saurav Goyal MD [address] [place] [address] Consulting Physician Pulmonary Disease 07/28/23 Yuni Meneses, MANAGER SAP WI Field Cane Scaler Casing In Line Feeder 11/27/23 12/04/23 Ayala Weaver, WAREHOUSE DISTRIBUTION ASSOCIATE, ARTIFICIAL FLOWER MAKER [address] [place] [address] Nurse Practitioner Neurology 12/18/23 documented as of this encounter
--- OUTSIDE RECORDS SUMMARY | 2025-02-22 12:12 | XMS_ITS | Encounter Summary ---
Author Organization [facility] Address [address] [place] [address] Phone Care Team Providers Care Maple Syrup Maker Name Role Phone Yuliana Florez APN Unavailable Unavailab Michel Shepherd APRN, STRATEGIC PARTNERSHIP REPRESENTATIVE Unavailable [phone] Laureano Quigley MD Unavailable [phone] Saurav Goyal MD Unavailable Lindsey Cerda MD Primary Care Provider [phone] Ayala Weaver APRN, PAPIER MACHE MOLDER Unavailable + [phone] Reason for Visit * Reason Comments Medication Refill Encounter Details Date Type Department Care Team (Late st Contact Info) Description 12/12/2024 Refill [facility] Medical [facility] - [facility] [place] [address] [place] [phone] Lindsey Cerda MD [address] [address] Medication Refill Social History Tobacco Use Types Packs/Day Years Used Date Smoking Tobacco: Former Cigarettes 0 Q uit: 03/13/1988 Smokeless Tobacco: Never Alcohol Use Standard Drinks/Week Comments Not Currently 0 (1 standard drink = 0.6 oz pur e alcohol) seldom [facility] Utilities Answer Date Recorded In the past 12 months has e [employer], gas, oil, or water [employer] threatened to shut off services in your home? Patient declined 04/16/2024 Social Connection and Isolation Panel Answer Date Recorded In a typical week, how many times do you talk on the phone with family, friends, or neighbors? Patient declined 04/16/2024 How often do you get togethe r with friends or relatives? Patient declined 04/16/2024 How often do you attend tenriism or yarsanism serv ices? Patient declined 04/16/2024 Do you belong to any clubs o r organizations such as tenriism groups, unions, fraternal or athletic groups, or [...] Total Score - Questions 1-9 0 /2 [facility] [place] of Occupat ional Health - Occupational Stress [...] any time in the past 12 m [facility], were you homeless or living in a mcc (including now)? 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 clonazePAM Dispensed Days Supply Quantity Provider Pharmacy CLONAZEPAM 11/16/2024 30 30 , LINDSEY CERDA 5 [facility] CLONAZEPAM 10/17/2024 30 30 , LINDSEY CERDA 5 [facility] CLONAZEPAM 09/17/2024 30 30 , FARIBALEYLA DREAD Bridges (DNP, WELDING SPECIALIST-C) 5 [facility] Medication failed the protocol, provider to review and approve the medication order if appropriate. Requested Prescriptions Pending Prescriptions Disp Refills clonazePAM (KlonoPIN) 1 MG Tablet [Pharmacy Med Name: CLONAZEPAM 1MG TABLET] 30 Tablet 0 Sig: TAKE 1 TABLET BY MOUTH NIGHTLY. 9.13 Not Delegated - Benzodiazepines Protocol Failed - 12/12/2024 2:41 PM Failed - This refill cannot be delegated Passed - Visit with relevant provider in past 12 months or upcoming 90 days Recent Visits Date Type Provider Dept 10/29/24 Office Visit Lindsey Cerda MD [facility] 07/23/24 Office Visit Lindsey Cerda MD [facility] 05/27/24 Office Visit Lindsey Cerda MD [facility] 04/29/24 Office Visit Lindsey Cerda MD [facility] [place] 04/16/24 Office Visit Lindsey Cerda MD [facility] 03/08/24 Office Visit Cheryl Blackwell APRN, [facility] [place] 01/11/24 Office Visit Lindsey Cerda MD [facility] 12/28/23 Office Visit Ainsley Coreas, [facility] [place] Show[facility] recent visits within past 365 days and meeting all other requirements Future Appointments Date Type Provider Dept 01/28/25 Appointment Lindsey Cerda MD [facility] Showing future appointments within next 90 days and meeting all other requirements Not Delegated - Clonazepam Protocol Failed - 12/12/2024 2:41 PM Failed - This refill cannot be delegated Passed - Visit with relevant provider in past 12 months or upcoming 90 days Recent Visits Date Type Provider Dept 10/29/24 Office Visit Lindsey Cerda MD [facility] 07/23/24 Office Visit Lindsey Cerda MD [facility] 05/27/24 Office [facility]/29/24 Office Visit Lindsey Cerda MD [facility] 04/16/24 Office Visit Lindsey Cerda MD [facility] 03/08/24 Office Visit Cheryl Blackwell APRN, STRATEGIC PARTNERSHIP REPRESENTATIVE [facility] 01/11/24 Office Visit Lindsey Cerda MD [facility] 12/28/23 Office Visit Ainsley Coreas DO [facility] Showing recent visits within past 365 days and meeting all other requirements Future Appointments Date Type Provider Dept 01/28/25 Appointment Lindsey Cerda MD [facility] Showing future appointments within next 90 days and meeting all other requirements documented in this encounter Plan of Treatment Upcoming Encounters Date Type Department Care Team (Latest Contact Info) Description 03/03/2025 10:00 AM HAND GRINDER Office Visit [facility] - Orthopedic Surgery - [place] #[address] [place] [address] Lindsey Cerda MD #[address] [address] Ann Graham MD #[address] [address] 03/04/2025 2:00 PM HAND GRINDER Office Visit [facility] - Cardiology - [place] #[address] [place] [address] Lindsey Cerda MD #2 [facility] [address] [place] [address] Carolin Sykes APRN, STRATEGIC PARTNERSHIP REPRESENTATIVE 2 [facility] [address] [place] [address] 03/19/2025 10:15 AM HAND GRINDER Physical Therapy [facility] 200 [facility], [facility] [address] [address] Sujata Winn, BLACK OXIDE COATING EQUIPMENT TENDER, STRATEGIC PARTNERSHIP REPRESENTATIVE [address] [place] [address] Michelle Patel, PT [place] Discharge Disposition: Discharged to home or Selfcare 03/21/2025 1:30 PM HAND GRINDER Office Visit [facility] Neurology [facility] #2 [place] [address] Ayala Weaver, BLACK OXIDE COATING EQUIPMENT TENDER, PAPIER MACHE MOLDER #[address] [place] [address] 04/29/2025 9:00 AM HAND GRINDER Office Visit [facility] Neurology [facility] #[address] [place] [address] Ayala Weaver BLACK OXIDE COATING EQUIPMENT TENDER, PAPIER MACHE MOLDER #[address] [place] [address] 05/09/2025 11:00 AM HAND GRINDER Office Visit [facility] Pulmonology & Sleep Medicine [facility] #[address] [place] [address] Saurav Goyal MD #[address] [place] [address] documented as of this encounter Goals Goal Patient Goal Type Associated Problems Recent Progress Patient-Stated? Author Depression Behavioral Health On track(2024 4:40 PM CDT) Flora Miller, TRIMMER HAND Note: GOAL: Lisseth will manage depressive symptoms more effectively. Goal Reviewed with: patient today Readiness to change: Ready to change Department associated with goal: [facility] Steps to [...] change Department associated with goal: [facility] Steps to [...] PM CDT) No Flora Yip LCSW Note: Goal/Objective: Decrease negative impact of chronic illness on mental health. Anticipated Time Frame for Goal Completion: 6 months Goal Reviewed with: Patient Readiness to change: Ready to change Department associated with goal: [facility] Steps to [...] change Department associated with goal: [facility] Steps to [...] documented as of this encounter Care Teams Maple Syrup Maker Relationship Specialty Start Date End Date Lindsey Cerda MD #[address] [address] PCP - General Family Medicine 09/01/23 Yuliana Florez CHIMNEY MECHANIC Advanced Practice Nurse 01/24/18 Michel Yanez APRN, STRATEGIC PARTNERSHIP REPRESENTATIVE #[address] [place] [address] Nurse Practitioner Advanced Practice Nurse 12/28/21 Laureano Quigley MD #[address] [address] Consulting Physician Urology 02/04/22 Saurav Goyal MD #2 [place] [address] Consulting Physician Pulmonary Disease 07/28/23 Ayala Weaver APRN, PAPIER MACHE MOLDER #[address] [place] [address] Nurse Practitioner Neurology 12/18/23 documented as of this encounter
--- OUTSIDE RECORDS SUMMARY | 2025-02-22 12:12 | XMS_ITS | Clinical Summary ---
Author Organization [facility] Administrative Offices Address [address] [place] [address] Care Team Providers Care Gate Technician Name Role Phone Damaso Vazquez MD Primary Care Provider [phone] Allergies Active Allergy Reactions Criticality Noted Date Comments Levofloxacin Hives,Other (See Comments) High 017 Leg pain Morphine Itching Low 12/10/2015 Tetracycline Rash Low 12/10/2015 Medications albuterol HFA 90 mcg inhaler Take 2 Puffs by inhalation every 6 hours as needed for Shortness of Breath. Active aspirin (DESTINI CHEWABLE) 81 mg Tablet, Chewable 1 Tablet (81 mg) by NG Tube route daily with breakfast. Active atorvastatin (LIPITOR) 40 mg tablet 1 Tablet (40 mg) by NG Tube route daily at bedtime. Active Additional Information Patient taking differently:40 mgOralDAILY AT BEDTIME, Reported on 07/08/2023 clopidogreL (PLAVIX) 75 mg Tablet 1 Tablet (75 mg) by NG Tube route daily. Active Additional Information Patient taking differently:75 mgOralDAILY, Reported on 07/08/2023 LORazepam (ATIVAN) 2 mg tabletIndicatio ns:Anxiety state 1 Tablet (2 mg) by NG Tube route every 8 hours. Active Additional Information Patient taking differently: 1 mg Oral EVERY 8 HOURS PRN, Reported on 07/08/2023 QUEtiapine (SEROquel) 100 mg tablet 1 Tablet (100 mg) by NG Tube route daily. 03/13/202 4 Active Additional Information Patient taking differently:100 mgOral TWO TIMES DAILY, Reported on 07/08/2023 traZODone (DESYREL) 50 mg tablet 1 Tablet (50 mg) by NG Tube route daily at bedtime. 4 Active Additional Information Patient taking differently:50 mgOralDAILY AT BEDTIME, Reported on 07/08/2023 azelastine (ASTELIN) 137 mcg/actuation nasal spray Administer 2 Sprays in each nostril 2 times daily. Active dexAMETHasone (DECADRON) 6 mg Tablet Take 6 mg by mouth every 12 hours. Active FLUoxetine (PROzac) 40 mg capsule Take 40 mg by mouth daily. Active fluticasone propionate (FLONASE) 50 mcg/spray [place], Suspension nasal inhaler Administer 2 Sprays in each nostril daily. Active fluticasone furoate-vilante roL (Breo Ellipta) 100-25 mcg/dose Disk with Device Take 1 Puff by inhalation daily. Active hydrOXYzine HCL (ATARAX) 50 mg tablet Take 50 mg by mouth every 6 hours as needed for Itching. Active levETIRAcetam (KEPPRA) 500 mg tablet Take 500 mg by mouth 2 times daily. Active levothyroxine 100 mcg tablet Take 100 mcg by mouth daily in the morning. Active pantoprazole (PROTONIX) 40 mg Tablet, Delayed Release (E.C.) Take 1 Tablet (40 mg) by mouth 2 times daily. 30 Tablet 5 4 Active methylPREDNISol one (MEDROL DOSPACK) 4 mg Tablets, Dose Pack Standard 6 day dosepack regimen 21 Tablet 4 Active Active Problems Problem Noted Date Diagnosed Date Tracheal stenosis 07/08/2023 At high risk for aspiration 05/09/2023 Protein-calorie malnutrition, moderate Left ventricular ejection fraction of 21% to 30% 05/01/2023 Acute respiratory failure with hypoxia Stress-induced cardiomyopathy 04/29/2023 Injury to liver 04/29/2023 Cardiogenic shock 04/27/2023 Sudden cardiac arrest 04/27/2023 Cerebrovascular accident (CV A) due to embolism of left middle cerebral artery 04/26/2023 Atrial tachycardia 04/26/2023 Cardiac arrest 04/24/2023 Wide-complex tachycardia 04/24/2023 CAD (coronary artery disease) 04/24/2023 Hepatic steatosis 01/08/2016 Dyspnea 01/08/2016 Gastroesophageal reflux disease 12/10/2015 Immunizations Immunization Administration Dates Next Due (ADACEL/BOOSTRIX)(10 YR UP) TDAP VACCINE, 0.5ML, IM 05/03/2023 (PREVNAR 20)(6 WKS UP) PNEUM OCOCCAL CONJUGATE VACCINE 20-VALENT (PCV20), POLYSACCHARIDE [id number] CONJUGATE, ADJUVANT 0.5 ML (PF) IM 05/03/2023 INFLUENZA VACCINE QUADRIVALENT 6 MOS UP PF IM Social History Tobacco Use Types Packs/Day Years Used Date Smoking Tobacco: Light Smoker Cigarettes Alcohol Use Standard Drinks/Week Comments Yes 0 (1 standard drink = 0.6 oz pur e alcohol) social Feeling Safe Answer Date Recorded Are you in a relationship wi th someone who hurts you emotionally and/or physically? 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 Gender Identity Not on file Sexual Orientation Not on file Last Filed Vital Signs Vital Sign Reading Time Taken Comments Blood Pressure 129/76 07/09/2023 7:38 AM CDT Pulse 92 07/09/2023 7:38 AM CDT Temperature 36.4 C (97.5 F) 07/09/2023 7:38 AM CDT Respiratory Rate 16 07/09/2023 9:10 AM CDT Oxygen Saturation 99% 07/09/2023 7:38 AM CDT Inhaled Oxygen Concentration - - Weight 65 kg (143 lb 4.8 oz) 07/08/2023 12:10 PM CDT Height 160 cm (5' 3) 07/08/2023 12:10 PM CDT Body Mass Index 25.38 07/08/2023 12:10 PM CDT Plan of Treatment Health Maintenance Due Date Last Done Comments HEPATITIS B VACCINES (1 of 3 - 19+ 3-dose series) 06/12/1987 COLORECTAL SCREENING 2013 Colorectal Cancer Screening 2013 FIT-DNA Q 3 years 2013 FIT/FOBT Q 1 year 2013 Flex Sig/CT Colonography Q 5 years 2013 BREAST CANCER SCREENING 07/03/2022 07/04/19 22, 07/03/2021, 06/29/2018, Additional history exists INFLUENZA VACCINE (#1) 2024 , 02/17/2021, 01/08/2020, Additional history exists COVID-19 Vaccine (5 - 2024-2 6 season) 2024 02/02/2022, 02/17/2021, 06/12/2020, Additional history exists DTAP/TDAP/TD VACCINES (3 - T d or Tdap) 05/03/2033 05/03/2023, 06/20/2022, 03/24/2008 ZOSTER VACCINE Completed 02/02/2022, 06/19/2021 Medical Devices Implanted Type Area Atomic Physics Teacher Device Identifier Shelf Expiration Date Model / Serial / Lot Dev Closure Angioseal 6fr Vip [id number] - [id number] Implanted:Qt y: 1 on 04/24/2023 at [facility] Closure Device Right: Groin [facility] [employer] 01/20/2024 [id number] / [id number] / [id number] [place] Pt[address] Thck [id number] - [id number] Implanted:Qt y: 1 on 01/04/2016 by Pierre Fierro MD at [facility] Graft N/A: Abdomen CR [employer] [id number] 07/31/2020 [id number] / / [id number] Stent Synergy Xd [id number] Evrlms Elut [id number] - [id number] Implanted:Qt y: 1 on 04/24/2023 at [facility] Stent Right: Coronary [employer] 11/01/2023 [id number] / / [id number] Med[employer]onic Back Stimulator-1 03/23/2021 Implanted: by Gabriel Sanders MD (Quantity not on file) [id number] / [id number] / Description:Whole body eligi ble per patient (need to verify on remote), ONLY 30 mins of scan time, NO REFUGIO or coil restrictions. Pt must have remote to turn into MRI mode. NORMAL mode-nito 02/22/[address] 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 intubation): Yes Mechanical Ventilation (for respiratory distress) - Non-Invasive (i.e. BiPAP, CPAP): Yes * Full Code Date Activated Date Inactivated Comments 04/29/2023 7:18 PM 05/05/2023 5:01 PM * NO CPR (In Event of Cardiopulmonary Arrest) Date Activated Date Inactivated Comments 04/27/2023 3:33 PM 04/29/2023 7:18 PM Question Answer Comments Mechanical Ventilation (for respiratory distress) - Invasive (i.e. intubation): Yes Mechanical Ventilation (for respiratory distress) - Non-Invasive (i.e. BiPAP, CPAP): Yes Care Teams Gate Technician Relationship Specialty Start Date End Date Damaso Vazquez MD PCP - General Family Practice 01/19/23
--- OUTSIDE RECORDS SUMMARY | 2025-02-22 12:12 | XMS_ITS | Clinical Summary ---
Author Organization [facility] Address [address] [place] [address] Phone Care Team Providers Care Municipal Maintenance Worker Name Role Phone XUAN ISABEL, EULALIA Goodman Unavailable [phone] STACEY SANTOS CNP, KELLY A Primary Care Provider [phone] Reason for Visit and Chief Complaint RX ISSUE/REFILL Plan of Treatment No Plan of Treatment [...] On 4 8:11AM By EULALIA ISABEL ; [facility] Cyclobenzaprine HCl 5 MG Oral Tablet 04/11/2023 Prov ider: EULALIA ISABEL Diagnosis: ONE (1) TO TWO (2) BY MOUTH EVERY NIGHT AT BEDTIME NEEDED Last Documented On 4 10:49AM By EULALIA ISABEL ; [facility] Pregabalin 100 MG Oral Capsule 02/20/2023 Provider: EULALIA HERNÁNDEZ Diagnosis: Chronic pain syn drome 1 CAPSULE TWO TIMES A DAY Last Documented On 3 1:55PM By EULALIA ISABEL ; [facility] FLUoxetine HCl 20 MG Oral Capsule 09/26/2022 Provide r: LB DENIS NP Diagnosis: Last Documented On 10/06/2022 4:20PM By Vilma BENTON ; [facility] Levothyroxine Sodium 88 MCG Oral Tablet 07/25/2022 P nikkider: Diagnosis: Last Documented On 07/28/2022 4:14PM By Vilma BENTON ; [facility] Losartan Potassium 50 MG Oral Tablet 07/18/2022 Prov ider: WALESKA GOYAL MD Diagnosis: Last Documented On 07/28/2022 4:15PM By Vilma BENTON ; [facility] buPROPion HCl ER (XL) 300 MG Oral Tablet Extended Release 24 Hour 07/12/2022 Provider: WALESKA GOYAL MD Diagnosis: Last Documented On 07/28/2022 4:13PM By Vilma BENTON ; [facility] Amphetamine-Dextroamphet ER 20 MG Oral Capsule Extended Release 24 Hour 07/11/2022 Provider: WALESKA GOYAL MD Diagnosis: Last Documented On 07/28/2022 4:16PM By Vilma BENTON ; [facility] Ondansetron HCl 4 MG Oral Tablet 07/07/2022 Provider : WALESKA GOYAL MD Diagnosis: Last Documented On 07/12/2022 4:27PM By Vilma BENTON ; [facility] Desvenlafaxine Succinate ER 100 MG Oral Tablet Extended Release 24 Hour 07/01/2022 Provider: WALESKA GOYAL MD Diagnosis: Last Documented On 07/28/2022 4:14PM By Vilma BENTON ; [facility] Pantoprazole Sodium 40 MG Or al Tablet Delayed Release 06/15/2022 Provider: WALESKA GOYAL MD Diagnosis: Last Documented On 07/12/2022 4:28PM By Vilma BENTON ; [facility] Narcan 4 MG/0.1ML Nasal Liquid 08/06/2020 Provider: EULALIA GOVEA ANP -BC 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 Social History Description Last Updated Former smoker 04/13/2023 Last Documented On 4 2:13PM ; [facility] Smoker 09/10/2019 Last Documented On 4 2:13PM ; [facility] Smoking status : Current everyday smoker 03/20/2019 Last Documented On 4 2:13PM ; [facility] 10/18/2018 Last Documented On 4 2:13PM ; [facility] Medical History Includes: Medical History addressed during this encounter Description Last Updated Has had a fall in the last 12 months. Last Documented On 4 2:13PM ; [facility] Reviewed and Unchanged 05/02/2019 Last Documented On 4 2:13PM ; [facility] 0 miscarriage(s) 10/18/2018 Last Documented On 4 2:13PM ; [facility] Currently wearing eyeglasses 10/18/2018 Last Documented On 4 2:13PM ; [facility] Previously 2 time(s) 10/18/2018 Last Documented On 4 2:13PM ; [facility] History of hypertension 10/18/2018 Last Documented On 4 2:13PM ; [facility] Surgery back surgery 2012 10/18/2018 Last Documented On 4 2:13PM ; [facility] Family History Includes: Family History addressed during [...] Active Last Documented On 4 4:26PM ; [facility] Levaquin Allergy 10/08/2020 Active Last Documented On 4 4:26PM ; [facility] Encounters Encounter Provider Location Date Check-In Time Check-Out Time Diagnosis RX ISSUE/REFILL EULALIA L XUAN ISABEL 07/10/2023 2:14PM 11:59PM Insurance Includes: Active Insurance Policies Plan Name Member ID Group # Subscriber Relationship Effect chelle Dates 1 - MEDICAID [facility] [id number] RITO FUENTES Self Clinical Notes Includes: Clinical Notes from this encounter * Progress note Date Encounter Last Documented by 07/10/2023 RX ISSUE/REFILL Last documented on 07/10/2023; 5:03 PM, EULALIA Goodman XUAN ISABEL; [facility] Chief Complaint Phone Call - Chief Concern: reason for call:pt would like to know if there is something she can have for restless leg syndrome, she would also like a refill of hydrocodone pt phone # for return call:[phone] date/initials:07/10/23. History of Present Illness Pharmacy name:~location:[facility]. Past Medical/Surgical History Reported: Surgery back surgery 2011. Medical: Currently wearing eyeglasses. Physical Trauma: Has had a fall in the last 12 months. : Previously 2 time(s) and aborta including [...] - HYDROcodone-Acetaminophen 7.5-325 MG Oral Tablet 1 BY MOUTH TWICE DAILY NEEDED, 30 days, 0 refills - Levothyroxine Sodium [...] Reaction: Skin Rashes / Eruption of skin Plan StartCited - Other PHY ORDER/COMMENT She will need to talk to her pcp or neurologist about restless legs. On pain meds, she has had significant changes to health since last prescribed. Isn't she following with surgery any longer? We need their notes. I am not eager to restart any meds without the whole picture EndCited Care Team - CYNTHIA CRABTREE-BC - Pain Management Health Reminders - Assess Tobacco Use satisfied 07/10/2023.
--- OUTSIDE RECORDS SUMMARY | 2025-02-22 12:12 | XMS_ITS | Encounter Summary ---
Author Organization [facility] Address [address] [place] [address] Phone Care Team Providers Care Correspondence Coordinator Name Role Phone Yuliana Florez APN Unavailable Unavailab Damaso Chaudhari MD Primary Care Provider [phone] Michel Yanez APRN, SECURITY PROGRAM MANAGER Unavailable [phone] Laureano Quigley MD Unavailable [phone] Elsa Kenny APRN, SECURITY PROGRAM MANAGER Unavailable + [phone] Saurav Goyal MD Unavailable Homer Alcala MD Primary Care Provider [phone] Yuni Meneses GASOLINE TRACTOR OPERATOR Unavailable Unavailab Ayala Orozco APRN, FINANCIAL RESERVE CLERK Unavailable + [phone] Reason for Visit * Reason Comments Medication Refill Encounter Details Date Type Department Care Team (Late st Contact Info) Description 08/25/2023 Refill [facility] - Family Medicine - [place] [address] [place] [address] Liset Foote, PAC [address] [place] [address] Medication Refill Social History Tobacco Use Types [...] 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 Not on file Not on file documented as of this encounter Functional Status documented as of this encounter Mental Status * Question Answer Entry Date Author BP 120/68 08/25/2023 10:17 AM CDT Starla Davies FINANCIAL SUPERVISOR Temp 97 08/25/2023 10:17 AM CDT Starla Davies, DIAN Pulse 68 08/25/2023 10:17 AM CDT Starla Davies, FINANCIAL SUPERVISOR SpO2 98 08/25/2023 10:17 AM CDT Starla Davies FINANCIAL SUPERVISOR documented in this encounter Miscellaneous Notes * Telephone Encounter - Darline Seth RN - 08/25/2023 11:10 AM CDT 06/30/23 - 3 month supply ordered - [facility] - should have refill on file for August documented in this encounter Plan of Treatment Upcoming Encounters Date Type Department Care Team (Latest Contact Info) Description 03/03/2025 10:00 AM E COMMERCE MARKETING MANAGER Office [facility] - Orthopedic Surgery - [place] [address] [place] [address] Homer Alcala MD #[address] [facility] [address] [place] [address] Ann Graham MD #2 [facility] [address] [place] [address] 03/04/2025 2:00 PM E COMMERCE MARKETING MANAGER [facility] [place] [address] [place] [address] Homer Alcala MD #[address] [address] Carolin Sykes, LITURGICAL MUSIC DIRECTOR, SECURITY PROGRAM MANAGER 2 [facility] [address] [place] [address] 03/19/2025 10:15 AM E COMMERCE MARKETING MANAGER [facility] [address] [phone] Sujata Winn, LITURGICAL MUSIC DIRECTOR, SECURITY PROGRAM MANAGER [address] [place] [address] Michelle Patel, PT [place] Discharge Disposition: Discharged to home or Selfcare 03/21/2025 1:30 PM E COMMERCE MARKETING MANAGER [facility] [place] [address] [place] [id number] Ayala Weaver, LITURGICAL MUSIC DIRECTOR, FINANCIAL RESERVE CLERK [address] [place] [address] 04/29/2025 9:00 AM E COMMERCE MARKETING MANAGER Office Visit [facility] - Neurology - [place] [address] [place] [address] Ayala Weaver APRN, FINANCIAL RESERVE CLERK [address] [place] [address] 05/09/2025 11:00 AM E COMMERCE MARKETING MANAGER Office Visit [facility] - Pulmonology & Sleep Medicine - [place] [address]2 [facility] [place] [address] Saurav Goyal MD [address] [place] [address] documented as of this encounter Goals Goal Patient Goal Type Associated Problems Recent Progress Patient-Stated? Author Depression Behavioral Health On track(2024 4:40 PM CDT) No Flora Yip LCSW Note: GOAL: Lisseth will manage depressive symptoms more effectively. Goal Reviewed with: patient today Readiness to change: Ready to change Department associated with goal: [facility] Steps to achieve [...] Ready to change Department associated with goal: [facility] Steps to achieve [...] - 04/05/2024 04/05/2024 04/05/2024 12:3 5 PM E COMMERCE MARKETING MANAGER COVID - 05/19/2024 05/19/2024 05/19/2024 6:18 PM CDT Assessment Noted Time PHQ-9 Depression Total Score: 19 024 7:46 AM CDT documented as of this encounter Care Teams Correspondence Coordinator Relationship Specialty Start Date End Date Damaso Vazquez MD PCP - General Family Medicine 05/28/20 08/31/23 Homer Alcala MD [address] [address] PCP - General Family Medicine 09/01/23 Yuliana Florez APN Advanced Practice Nurse 01/24/18 Michel Yanez APRN, SECURITY PROGRAM MANAGER [address] [place] [address] Nurse Practitioner Advanced Practice Nurse 12/28/21 Laureano Quigley MD #[address] [address] Consulting Physician Urology 02/04/22 Elsa Kenny APRN, SECURITY PROGRAM MANAGER #2 [facility] [address] [place] [address] Nurse Practitioner Cardiology 07/14/23 09/17/24 Saurav Goyal MD [address] [place] [address] Consulting Physician Pulmonary Disease 07/28/23 Yuni Meneses, GASOLINE TRACTOR OPERATOR [place] [employer] Driver Machine Coremaker 11/27/23 12/04/23 Ayala Weaver APRN, FINANCIAL RESERVE CLERK [address] [place] [address] Nurse Practitioner Neurology 12/18/23 documented as of this encounter
--- OUTSIDE RECORDS SUMMARY | 2025-02-22 12:12 | XMS_ITS ---
Care Plan - [facility] Created on: February 22, 2025 RITO FUENTES : 1970 Sex: Female Author Organization [facility] Address [address] [place] [address] Phone Care Team Providers Care Military Lawyer Name Role Phone EULALIA VERDUZCO Unavailable [phone] STACEY SANTOS,BLOCK SORTER, STUART A Primary Care Provider [phone]
--- OUTSIDE RECORDS SUMMARY | 2025-02-22 12:12 | XMS_ITS | Encounter Summary ---
Author Organization [facility] Address [address] [place] [address] Phone Care Team Providers Care Equity Manager Name Role Phone Yuliana Florez APN Unavailable Unavailab Damaso Chaudhari MD Primary Care Provider [phone] Michel Yanez APRN, FINANCE MANAGER Unavailable [phone] Laureano Quigley MD Unavailable [phone] Esla Kenny APRN, FINANCE MANAGER Unavailable + [phone] Saurav Goyal MD Unavailable Homer Alcala MD Primary Care Provider [phone] Yuni Meneses CHARTERED WEALTH MANAGER Unavailable Unavailab Ayala Orozco APRN, RADIOACTIVITY TECHNICIAN Unavailable + [phone] Reason for Visit * Reason Comments Medication Refill Encounter Details Date Type Department Care Team (Late st Contact Info) Description 08/28/2023 Refill [facility] - Family Medicine - [place] [address] [place] [phone] Damaso Vazquez MD [address] [place] [address] Medication Refill Social History Tobacco Use Types [...] 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 Requested Prescriptions Pending Prescriptions Disp Refills famotidine (PEPCID) 20 MG Tablet [Pharmacy Med Name: FAMOTIDINE 20MG TABLET] 30 Tablet 0 Sig: TAKE ONE (1) TABLET BY MOUTH DAILY H2 Antagonists Protocol Passed - 08/28/2023 9:56 AM Passed - Visit with relevant provider in past 12 months or upcoming 90 days Recent Visits Date Type Provider Dept 08/25/23 Office Visit Homer [facility]cal[facility] MD [facility] 07/10/23 Office [facility] 06/30/23 Office Visit Liset Foote PAC [facility] 10/06/22 Office Visit Damaso Vazquez MD [facility] 08/29/22 Telemedicine Damaso Vazquez MD [facility] Showing recent visits within past 365 days and meeting all other requirements Future Appointments Date Type Provider Dept 09/12/23 Appointment Homer Alcala MD [facility] Showing future appointments within next 90 days and meeting all other requirements documented in this encounter Plan of Treatment Upcoming Encounters Date Type Department Care Team (Latest Contact Info) Description 03/03/2025 10:00 AM PIANO REFINISHER Office Visit [facility] - Orthopedic Surgery - [place] [address] [place] [address] Homer Alcala MD #[address] [address] Ann Graham MD #[address] [address] 03/04/2025 2:00 PM PIANO REFINISHER Office Visit [facility] Cardiology - [place] [address] [place] [address] Homer Alcala MD #[address] [address] Carolin Sykes APRN, FINANCE MANAGER [address] [address] 03/19/2025 10:15 AM PIANO REFINISHER Physical Therapy [facility] [place] [facility] at [facility] [address] [address] Sujata Winn, WAITER/WAITRESS INFORMAL, FINANCE MANAGER [address] [place] [address] Michelle Patel, PT [place] Discharge Disposition: Discharged to home or Selfcare 03/21/2025 1:30 PM PIANO REFINISHER Office Visit [facility] Neurology [facility] [address]2 [place] [address] Ayala Weaver, WAITER/WAITRESS INFORMAL, RADIOACTIVITY TECHNICIAN [address] [place] [address] 04/29/2025 9:00 AM PIANO REFINISHER Office Visit [facility] Neurology [facility] [address] [place] [address] Ayala Weaver, WAITER/WAITRESS INFORMAL, RADIOACTIVITY TECHNICIAN [address] [place] [address] 05/09/2025 11:00 AM PIANO REFINISHER Office Visit [facility] Pulmonology & Sleep Medicine [facility] [address]2 [place] [address] Saurav Goyal MD [address] [place] [address] documented as of this encounter Goals Goal Patient Goal Type Associated Problems Recent Progress Patient-Stated? Author Depression Behavioral Health On track(2024 4:40 PM CDT) Flora Miller, GUIDE TOUR Note: GOAL: Lisseth will manage depressive symptoms more effectively. Goal Reviewed with: patient today Readiness to change: Ready to change Department associated with goal: [facility] Steps to achieve [...] On track(2024 4:40 PM CDT) Flora Miller, GUIDE TOUR Note: GOAL: Lisseth will process feelings of grief and loss related to her son. Goal Reviewed with: patient today Readiness to change: Ready to change Department associated with goal: [facility] Steps to achieve [...] 19 04/05/2024 04/05/2024 04/05/2024 12:3 5 PM PIANO REFINISHER COVID - 19 05/19/2024 05/19/2024 05/19/2024 6:18 PM CDT Assessment Noted Time PHQ-9 Depression Total Score: 19 024 7:46 AM CDT documented as of this encounter Care Teams Equity Manager Relationship Specialty Start Date End Date Damaso Vazquez MD PCP - General Family Medicine 05/28/20 08/31/23 Homer Alcala MD #[address] [address] PCP - General Family Medicine 09/01/23 Yuliana Florez APN Advanced Practice Nurse 01/24/18 Michel Yanez APRN, FINANCE MANAGER [address] [place] [address] Nurse Practitioner Advanced Practice Nurse 12/28/21 Laureano Quigley MD [address] [facility] [place] [address] Consulting Physician Urology 02/04/22 Elsa Kenny, WAITER/WAITRESS INFORMAL, FINANCE MANAGER #2 [facility] [address] [facility] [place] [address] Nurse Practitioner Cardiology 07/14/23 09/17/24 Saurav Goyal MD [address] [place] [address] Consulting Physician Pulmonary Disease 07/28/23 Yuni Meneses, CHARTERED WEALTH MANAGER [place] Applied Mathematician Glass Mechanic 11/27/23 12/04/23 Ayala Weaver APRN, RADIOACTIVITY TECHNICIAN [address] [place] [address] Nurse Practitioner Neurology 12/18/23 documented as of this encounter
--- OUTSIDE RECORDS SUMMARY | 2025-02-22 12:12 | XMS_ITS | Encounter Summary ---
Author Organization [facility] Address [address] [place] [address] Phone Care Team Providers Care Content Writer Name Role Phone Yuliana Florez NP Primary Care Provider [phone] Yuliana Florez DIGITAL IMAGER Unavailable [phone] Rl Owens MD Unavailable Gabriel Wood MD Unavailable Henry Silveira DIGITAL IMAGER Primary Care Provider Henry Silveira DIGITAL IMAGER Primary Care Provider Felecia Saenz DIGITAL IMAGER Primary Care Provider [phone] Encounter Details Date Type Department Care Team (Late st Contact Info) Description 05/16/2017 Orders Only [facility] ProviderGabriela MD [address] [place] [address] Social History Tobacco Use Types Packs/Day Years Used Date Smoking Tobacco: Every Day Cigarettes Smokeless Tobacco: Never Chew Comments:Smoking History Pac ks/day: 20 Packs Alcohol Use Standard Drinks/Week Comments Yes 0 (1 standard drink = 0.6 oz pur e alcohol) Comments No Sex and Gender Information Value Date Recorded Sex Assigned at Not on file Legal Sex Female 7:29 PM LAST SORTER Gender Identity Not on file Sexual Orientation Not on file 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 us Historical Provider LAB BLOOD ORDERABLES Estrellita l Result documented in this encounter Visit Diagnoses Not on filedocumented in this encounter Additional Health Concerns Infection Onset Date Last Indicated Resolved Time COVID: Suspected 02/05/2021 02/05/2021 02/05/2021 1:39 PM LAST SORTER COVID: Suspected 02/05/2021 02/05/2021 02/05/2021 10:48 PM LAST SORTER C. difficile suspected 06/05/2023 06/05/202306/04 2:58 PM CDT documented as of this encounter Care Teams Content Writer Relationship Specialty Start Date End Date Yuliana Florez DIGITAL IMAGER [address] [facility] [address] [place] [address] PCP - General 06/03/16 10/12/17 Yuliana Florez, DIGITAL IMAGER [address] [facility] [address] [place] [address] PCP - [place] Attributed PCP 03/06/16 10/12/17 [place] [address] [address] [place] [address] PCP - General Family Medicine 10/27/17 06/11/18 Henry Silveira DIGITAL IMAGER [address] [address] [place] [address] PCP - General Family Medicine 10/13/17 10/26/17 [place] [address] [address] [place] [address] PCP - General 06/12/18 Rl Owens MD [address] [place] [address] Consulting Physician Gastroenterology 06/02/17 Gabriel Wood MD [address] [facility] [address] [place] [address] Consulting Physician Pulmonary Disease 06/02/17 documented as of this encounter
--- OUTSIDE RECORDS SUMMARY | 2025-02-22 12:12 | XMS_ITS | Encounter Summary ---
Author Organization [facility] Address [address] [place] [address] Phone Care Team Providers Care Finishing Trimmer Name Role Phone Yuliana Florez APN Unavailable Unavailab Damaso Chaudhari MD Primary Care Provider [phone] Michel Yanez APRN, HEADWAITRESS Unavailable [phone] Laureano Quigley MD Unavailable [phone] Elsa Kenny APRN, HEADWAITRESS Unavailable + [phone] Saurav Goyal MD Unavailable Homer Alcala MD Primary Care Provider [phone] Yuni Meneses FARMWORKER LIVESTOCK Unavailable Unavailab Ayala Orozco APRN, LECTURER IN COMPUTER SCIENCE Unavailable + [phone] Reason for Visit * Reason Comments Medication Refill Encounter Details Date Type Department Care Team (Late st Contact Info) Description 07/25/2023 Refill [facility] - Family Medicine - [place] [address] [place] [address] Homer Alcala MD #[address] [address] Medication Refill Social History Tobacco Use Types [...] 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 Not on file documented as of this encounter Functional Status documented as of this encounter Mental Status * Question Answer Entry Date Author Teresita 97.3 07/25/2023 2:07 PM CDT Felecia Washington SpO2 98 07/25/2023 2:07 PM CDT Rishabh andFelecia * Question Answer Entry Date Author BP 142/81 07/27/2023 9:03 AM CDT Child Kayy johnson RN Pulse 88 07/27/2023 9:03 AM CDT Child Kayy johnson, RN documented in this encounter Miscellaneous Notes * Telephone Encounter - Darline Seth RN - 07/25/2023 4:37 PM CDT Signed Yesterday (07/24/2023): fluconazole (DIFLUCAN) 150 MG Tablet Sig: Take 1 Tablet by mouth if needed (yeast infection). Disp: 5 Tablet Refills: 0 Signed by: Damaso Vazquez MD documented in this encounter Plan of Treatment Upcoming Encounters Date Type Department Care Team (Latest Contact Info) Description 03/03/2025 10:00 AM SENIOR PORTFOLIO MANAGER Office Visit [facility] - Orthopedic Surgery - [place] #2 [place] [address] Homer Alcala MD #2 [facility] [address] [place] [address] Ann Graham MD #2 [facility] [address] [place] [address] 03/04/2025 2:00 PM SENIOR PORTFOLIO MANAGER Office Visit [facility] - Cardiology - [place] #2 [place] [address] Homer Alcala MD #[address] [address] Carolin Sykes APRN, HEADWAITRESS 2 [facility] [address] [place] [address] 03/19/2025 10:15 AM SENIOR PORTFOLIO MANAGER Physical [facility] 200 [facility] [address] [place] [address] Sujata Winn APRN, HEADWAITRESS [address] [place] [address] Michelle Patel, PT [place] Discharge Disposition: Discharged to home or Selfcare 03/21/2025 1:30 PM SENIOR PORTFOLIO MANAGER [facility] [place] #2 [place] [id number] Ayala Weaver APRN, LECTURER IN COMPUTER SCIENCE #2 [place] [address] 04/29/2025 9:00 AM SENIOR PORTFOLIO MANAGER Office Visit [facility] - Neurology - [place] #2 [place] [address] Ayala Weaver APRN, LECTURER IN COMPUTER SCIENCE #2 [facility] [place] [address] 05/09/2025 11:00 AM SENIOR PORTFOLIO MANAGER Office Visit [facility] - Pulmonology & Sleep Medicine - [place] [address]2 [place] [address] Saurav Goyal MD #2 [facility] [place] [address] documented as of this encounter Goals Goal Patient Goal Type Associated Problems Recent Progress Patient-Stated? Author Depression Behavioral Health On track(2024 4:40 PM CDT) No Flora Yip LCSW Note: GOAL: Lisseth will manage depressive symptoms more effectively. Goal Reviewed with: patient today Readiness to change: Ready to change Department associated with goal: [facility] Steps to achieve goal: [...] Ready to change Department associated with goal: [facility] Steps to achieve goal: [...] 04/05/2024 04/05/2024 04/05/2024 12:3 5 PM SENIOR PORTFOLIO MANAGER COVID - 05/19/2024 05/19/2024 05/19/2024 6:18 PM CDT Assessment Noted Time PHQ-9 Depression Total Score: 19 024 7:46 AM CDT documented as of this encounter Care Teams Finishing Trimmer Relationship Specialty Start Date End Date Damaso Vazquez MD PCP - General Family Medicine 05/28/20 08/31/23 Homer Alcala MD #2 [facility] [address] [place] [address] PCP - General Family Medicine 09/01/23 Yuliana Florez POLICY SERVICE COORDINATOR Advanced Practice Nurse 01/24/18 Michel Yanez GAS PIT WORKER, HEADWAITRESS #2 [place] [address] Nurse Practitioner Advanced Practice Nurse 12/28/21 Laureano Quigley MD #2 [facility] [address] [place] [address] Consulting Physician Urology 02/04/22 Elsa Kenny APRN, HEADWAITRESS #2 [facility] YANELIMiller [facility] [address] [place] [address] Nurse Practitioner Cardiology 07/14/23 09/17/24 Saurav Goyal MD #2 [place] [address] Consulting Physician Pulmonary Disease 07/28/23 Yuni Meneses, ANANDA [place] Living Nurse Mechanical Engineering Advisor 11/27/23 12/04/23 Ayala Weaver APRN, LECTURER IN COMPUTER SCIENCE #2 [place] [address] Nurse Practitioner Neurology 12/18/23 documented as of this encounter
--- OUTSIDE RECORDS SUMMARY | 2025-02-22 12:12 | XMS_ITS | Encounter Summary ---
Author Organization [facility] Address [address] [place] [address] Phone Care Team Providers Care Tool Clerk Name Role Phone Yuliana Florez APN Unavailable Unavailab Felecia Hendricks LIQUOR DEPARTMENT MANAGER, HOUSE DIRECTOR Primary Care Provider Damaso Vazquez MD Primary Care Provider [phone] Michel Yanez APRN, HOUSE DIRECTOR Unavailable [phone] Laureano Quigley MD Unavailable [phone] Elsa Kenny APRN, HOUSE DIRECTOR Unavailable + [phone] Saurav Goyal MD Unavailable Homer Alcala MD Primary Care Provider [phone] Yuni MenesesW Unavailable Unavailab Ayala Orozco LIQUOR DEPARTMENT MANAGER, DATA CONSULTANT Unavailable [phone] Reason for Visit * Reason Onset Date Comments Medication Refill 03/31/2020 alprazolam Encounter Details Date Type Department Care Team (Late st Contact Info) Description 03/30/2020 Refill [facility] - Primary Care - [place] [address] [place] [id number] Felecia Saenz, GABRIEL, HOUSE DIRECTOR [address] [place] [address] Medication Refill (alprazolam) Social History Tobacco Use Types Packs/Day Years [...] have Coronavirus / COVID-19? No / Unsure 03/30/2020 4:06 PM ALTERATION SPECIALIST documented as of this encounter Miscellaneous Notes * Telephone Encounter - Shirley Fuchs RN - 03/31/2020 9:43 AM ALTERATION SPECIALIST Routing to PCP to call patient. RATION SPECIALIST * Telephone Encounter - Felecia Saenz APN, STEPHANIE - 03/31/2020 9:39 AM ALTERATION SPECIALIST I cannot continue to prescribe the medication with 2 negative drug screens. I realize that she is going through a difficult time at the present but this is regulation. RATION SPECIALIST * Telephone Encounter - Yue Rosario RN - 03/31/2020 8:55 AM ALTERATION SPECIALIST Patient received a call back that the alprazolam was not going to be renewed because of her testingnegative for alprazolam on her drug screen (see 03/25/20 encounter prn for details). Patient says that she only takes this medication when needed & that right now she has been going through so much stress with her child who just had his g-tube removed & is in hospice. She is hoping that you w ill renew this medication in the meantime. Please call her back to let her know either way, thank you. RATION SPECIALIST documented in this encounter Plan of Treatment Upcoming Encounters Date Type Department Care Team (Latest Contact Info) Description 03/03/2025 10:00 AM ALTERATION SPECIALIST Office Visit [facility] - [facility]opedic Surgery - [place] #2 [place] [address] Homer Alcala MD #[address] [address] Ann Graham MD #[address] [address] 03/04/2025 2:00 PM ALTERATION SPECIALIST Office Visit [facility] - Cardiology - [place] #[address] [place] [address] Homer Alcala MD #2 [facility] [address] [place] [address] Carolin Sykes APRN, HOUSE DIRECTOR 2 [facility] [address] [place] [address] 03/19/2025 10:15 AM ALTERATION SPECIALIST Physical Therapy [facility] 200 [facility], [facility] [address] [address] Sujata Winn, LIQUOR DEPARTMENT MANAGER, HOUSE DIRECTOR [address] [place] [address] Michelle Patel, PT [place] Discharge Disposition: Discharged to home or Selfcare 03/21/2025 1:30 PM ALTERATION SPECIALIST Office Visit [facility] Neurology - [place] #2 [place] [address] Ayala Weaver APRN, DATA CONSULTANT #2 [place] [address] 04/29/2025 9:00 AM ALTERATION SPECIALIST Office Visit [facility] Neurology [facility] #2 [place] [address] Ayala Weaver APRN, DATA CONSULTANT #2 [place] [address] 05/09/2025 11:00 AM ALTERATION SPECIALIST Office Visit [facility] Pulmonology & Sleep Medicine [facility] #2 [place] [address] Saurav Goyal MD #2 [place] [address] documented as of this encounter Goals Goal Patient Goal Type Associated Problems Recent Progress Patient-Stated? Author Depression Behavioral Health On track(2024 4:40 PM CDT) Flora Miller, GAME TESTER Note: GOAL: Lisseth will manage depressive symptoms more effectively. Goal Reviewed with: patient today Readiness to change: Ready to change Department associated with goal: [facility] Steps to achieve [...] of this encounter Visit Diagnoses Diagnosis Anxiety Anxiety state, unspecified documented in this encounter Additional Health Concerns Infection Onset Date Last Indicated Resolved Time COVID - 19 10/08/2023 10/08/2023 10/08/2023 11:4 0 AM CDT COVID - 04/05/2024 04/05/2024 04/05/2024 12:3 5 PM ALTERATION SPECIALIST COVID - 05/19/2024 05/19/2024 05/19/2024 6:18 PM CDT Assessment Noted Time PHQ-9 Depression Total Score: 1 01/12/20 19 5:00 PM ALTERATION SPECIALIST documented as of this encounter Care Teams Tool Clerk Relationship Specialty Start Date End Date Felecia Saenz, LIQUOR DEPARTMENT MANAGER, HOUSE DIRECTOR [address] [place] [address] PCP - General Advanced Practice Nurse 03/14/18 05/27/20 Damaso Vazquez MD [address] [place] [address] PCP - General Family Medicine 05/28/20 08/31/23 Homer Alcala MD #[address] [address] PCP - General Family Medicine 09/01/23 Yuliana Florez APN Advanced Practice Nurse 01/24/18 Michel Yanez LIQUOR DEPARTMENT MANAGER, HOUSE DIRECTOR #2 [place] [address] Nurse Practitioner Advanced Practice Nurse 12/28/21 Laureano Quigley MD #[address] [facility] [address] [place] [address] Consulting Physician Urology 02/04/22 Elsa Kenny, LIQUOR DEPARTMENT MANAGER, HOUSE DIRECTOR #2 [facility], [facility] [address] [place] [address] Nurse Practitioner Cardiology 07/14/23 09/17/24 Saurav Goyal MD #2 [place] [address] Consulting Physician Pulmonary Disease 07/28/23 Yuni Meneses, [facility] [employer] Plant Operator Physical Anthropologist 11/27/23 12/04/23 Ayala Weaver, LIQUOR DEPARTMENT MANAGER, DATA CONSULTANT #2 [place] [address] Nurse Practitioner Neurology 12/18/23 documented as of this encounter
--- OUTSIDE RECORDS SUMMARY | 2025-02-22 12:12 | XMS_ITS | Encounter Summary ---
Author Organization [facility] Address [address] [place] [address] [place] [address] Care Team Providers Care Compound Worker Name Role Phone Homer Alcala MD Primary Care Provider [phone] Reason for Visit * Reason Onset Date Comments Sinus Problem 02/21/2025 Encounter Details Date Type Department Care Team (Late st Contact Info) Description 02/21/2025 Telephone [facility] - Otolaryngology [address] [address] Antonino Ojeda MD [address] [facility] 3 [place] [phone] Sinus Problem Social History Tobacco Use Types Packs/Day Years [...] your partner or ex-partner? Patient declined 02/17/2025 [facility] - Occupational Stress Questionnaire Answer Date [...] any time in the past 12 [facility], were you homeless or living in a [place] health care facility (including now)? Patient declined 02/17/2025 [facility] Utilities Answer Date Recorded In the past 12 months has th e electric, gas, oil, or water company threatened to shut off services in your home? 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 Answer Entry Date Author No 02/17/2025 5:50 PM Maik Holguin RN documented in this encounter Miscellaneous Notes * Telephone Encounter - Magno Waite RN - 02/21/2025 2:26 PM CST Pt left message on [facility] Nurse line. Pt states her sinsus feel worse today than when she visited Dr. Ojeda on 02/17/2025. Pt states she has sinus pressure, thick yucky yellow drainage. Pt suggests she may need more antibiotics or medicine. Returned call to Pt voicemail. Informed her that Dr. Ojeda reviewed her symptoms. Dr. Ojeda is prescribing Nasacort nasal spray while the Budesonide rinses are in the approval process. Left [facility] Nurse line number if the Pt has any further questions. F MEDICAL DIRECTOR documented in this encounter Plan of Treatment Upcoming Encounters Date Type Department Care Team (Late st Contact Info) Description 03/05/2025 2:30 PM CHIEF MEDICAL DIRECTOR Office Visit [facility] - Dermatology [address] [facility], [place] [phone] Andrew Suarez MD [facility]5 [facility] 3 [place] [address] 05/30/2025 1:00 PM CDT Hospital Encounter [facility] ENDOSCOPY [address] [place] [address] Ale Parrish MD [address] [place] [phone] Surgery General 05/30/2025 1:00 PM CDT - 05/30/2025 1:45 PM CDT Surgery [facility] [address] [place] [address] Ale Parrish MD [address] [place] [phone] COLONOSCOPY SCREEN---PAT prior 12/15/2025 9:30 AM CDT Appointment [facility] Health Imaging Services [place] Scan [address] [place] [address] Antonino Ojeda MD [address] [place] [address] 3 [place] [address] 12/15/2025 10:30 AM CDT Office Visit [facility] - Otolaryngology [address] [place] [address] Antonino Ojeda MD [address] [place] [address] [address] [place] [address] Scheduled Procedures Name Priority Associated Diagnoses Date/Ti me COLONOSCOPY SCREEN Screen for colon cancer 05/30/2025 1:00 PM CDT documented as of this encounter Goals Goal Patient Goal Type Associated Problems Recent Progress Patient-Stated? Author Medication Management General Yue Hensley, RN Note: Expected end date: ongoing Interventions: Take all medications as prescribed documented as of this encounter Visit Diagnoses Not on filedocumented in this encounter Care Teams Compound Worker Relationship Specialty Start Date End Date Homer Alcala MD [address] [place] [address] PCP - General Family Medicine 01/08/24 documented as of this encounter
--- OUTSIDE RECORDS SUMMARY | 2025-02-22 12:12 | XMS_ITS | Clinical Summary ---
Author Organization [facility] Address [address] [place] [id number] Care Team Providers Care Web Publisher Name Role Phone Rl Owens MD Unavailable [phone] Gabriel Wood MD Unavailable [phone] Felecia Saenz STAIN WIPER Primary Care Provider [phone] Allergies Active Allergy Reactions Criticality Noted Date Comments Levofloxacin Hives Medium 09/26/2016 Morphine Itching,Mental statu s changes High 10/18/2018 Reaction: Itching, Rash, and Confusion Tetracycline Itching,Stomach upset High Medications atorvastatin (LIPITOR) 40 mg tablet Take 1 tablet (40 mg total) by mouth daily Active aspirin 81 mg chewable tablet Take 1 tablet (81 mg total) by mouth daily Active clopidogreL (PLAVIX) 75 mg tablet Take 1 tablet (75 mg total) by mouth daily Active levothyroxine (SYNTHROID) 88 mcg tablet Take 1 tablet (88 mcg total) by 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 before 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 Active LORazepam (ATIVAN) 2 mg tablet Take 1 tablet (2 mg total) by mouth every 8 (eight) hours Active guaiFENesin (ROBITUSSIN) syrup 100 mg/5 mL Take 20 mL (400 mg total) by mouth 4 (four) times a day Active oxyCODONE (ROXICODONE) 10 mg tabletIndicatio ns:Pain Take 1 tablet (10 mg total) by mouth every 6 (six) hours Active polyethylene glycol (MIRALAX) 17 gram packetIndicatio ns:constipation Take 1 packet (17 g total) by mouth daily Active enoxaparin (LOVENOX) 40 mg/0.4 mL syringe Inject 0.4 mL (40 mg total) under the skin daily Active omeprazole (PriLOSEC) 40 mg capsule Take 1 capsule (40 mg total) by mouth daily Active QUEtiapine (SEROquel) 100 mg tablet Take 1 tablet (100 mg total) by mouth daily Active QUEtiapine (SEROquel) 200 mg tablet Take 1 tablet (200 mg total) by mouth nightly Active senna-docusate (PERICOLACE) 8.6-50 mg Take 1 tablet by mouth 2 (two) times a day Active traZODone (DESYREL) 50 mg tablet Take 1 tablet (50 mg total) by mouth nightly Active levETIRAcetam (KEPPRA) 500 mg tablet Take 1 tablet (500 mg total) by mouth 2 (two) times a day 4 Active fluticasone propionate (FLONASE) 50 mcg/actuation nasal spray Administer 1 spray into each nostril 2 (two) times a day 4 Active Active Problems Problem Noted Date Diagnosed Date Tracheostomy present 06/10/2023 Delirium 06/03/2023 Acute hypoxemic respiratory failure 05/27/2023 Tracheal stenosis 05/27/2023 Tracheal obstruction 05/26/2023 Coronary artery disease involving [place] heart 0 05/26/2023 Moderate malnutrition 05/26/2023 Respiratory failure 05/25/2023 Stridor 05/25/2023 Pes anserinus bursitis of left knee 06/12/2018 Assessment & Plan (06/12/2018 4:40 PM CDT): Patient may find topical rubs helpful. She should continue with a pillow or a folded blanket the pad the affected area at night Arthritis of left knee 12/21/2017 Assessment & Plan (06/12/2018 4:40 PM CDT): Patient does have underlying fibromyalgia with moderate arthritis of the knee. Her most pronounced symptoms are in the patellofemoral region. After reviewing the treatment options patient elected undergo a cortisone injection which was given today through a sterile field. She tolerated the procedure well. The long-term weight loss would likely be beneficial. Assessment & Plan (12/21/2017 3:56 PM CDT): Patient was found to have degenerative fraying of the meniscus but no erik tears by MRI. She does have some reactive synovitis of the knee may benefit from cortisone. After reviewing the treatment options patient elected undergo a shot. She may find a knee sleeve helpful as well as elevation and ice packs Arthritis of left elbow 07/25/2017 Assessment & Plan (07/25/2017 5:02 PM CDT): Patient has minimal radiographic changes of arthritis in the elbow but with her having lupus and multiple joints that are symptomatic this point she probably has a flare-up of her lupus. She was advised to contact her fur trimmer so she can be better treated for her systemic arthralgias Palpitations 06/08/2017 Assessment & Plan (06/08/2017 10:25 AM CDT): Cardiac work up in hospital negative. Plan to start Toprol XL 25 mg daily. Other chest pain 06/02/2017 Abnormal x-ray 06/02/2017 Elevated LFTs 02/01/2017 Osteopenia of spine 02/01/2017 BMI 31.0-31.9,adult 01/29/2017 Assessment & Plan (06/08/2017 10:23 AM CDT): Weight is stable. Discussed the patient's BMI. The BMI is above average; BMI management plan is completed. General weight loss/lifestyle modification strategies discussed (elicit support from others; identify saboteurs; non-food rewards, etc). Assessment & Plan (01/29/2017 6:24 PM FORENSIC ENGINEER): Obesity is unchanged. Discussed the patient's BMI. The BMI is above average; BMI management plan is completed. General weight loss/lifestyle modification strategies discussed (elicit support from others; identify saboteurs; non-food rewards, etc). Other forms of systemic lupus erythematosus 01/05 Assessment & Plan (10/27/2017 12:59 PM CDT): - continue monitoring for symptoms and labs Assessment & Plan (01/29/2017 6:19 PM FORENSIC ENGINEER): Plan to check ESR and C-reactive protein. Tapering prednisone as directed. Restless leg syndrome 01/23/2017 Assessment & Plan (01/29/2017 6:22 PM FORENSIC ENGINEER): Plan to check ferritin and Vitamin B12 levels. Hope will improve when Lyrica is started. Vitamin D deficiency 01/23/2017 Assessment & Plan (12/05/2017 8:12 AM CDT): - will check Vit D level - continue supplement as needed Assessment & Plan (10/27/2017 1:02 PM CDT): - continue to monitor Assessment & Plan (01/29/2017 6:20 PM FORENSIC ENGINEER): Plan to check Vitamin D level. Smoker 01/23/2017 Assessment & Plan (10/27/2017 1:03 PM CDT): - encourage cessation. Assessment & Plan (06/08/2017 10:26 AM CDT): Tobacco use is hoping to be improved. . Has started the Nicoderm CQ patches. Tobacco use will be reassessed at the next regular appointment. Assessment & Plan (01/29/2017 6:21 PM FORENSIC ENGINEER): Tobacco use is unchanged. Smoking cessation counseling was provided. Tobacco use will be reassessed at the next regular appointment. Menopausal symptoms 01/23/2017 Assessment & Plan (01/29/2017 6:18 PM FORENSIC ENGINEER): Arrange DEXA. Check FSH, Lh, estrodial and progesterone levels. Essential hypertension 01/23/2017 Assessment & Plan (12/05/2017 8:13 AM CDT): - continue current medications with any medication changes identified today for hypertension control - make routine follow ups as scheduled for blood pressure monitoring - labs as ordered to check end organ function - increase raw vegetables in diet - increase activity as tolerated Assessment & Plan (10/27/2017 12:56 PM CDT): - continue current medications with any medication changes identified today for hypertension control - make routine follow ups as scheduled for blood pressure monitoring - labs as ordered to check end organ function - increase raw vegetables in diet - increase activity as tolerated Assessment & Plan (06/08/2017 10:24 AM CDT): Hypertension is fair control.. Continue current treatment regimen. Hope with addition of Toprol XL 25 mg will improve BP Blood pressure will be reassessed in 2 weeks. Assessment & Plan (01/29/2017 6:17 PM FORENSIC ENGINEER): Hypertension is stable. . Continue current treatment regimen. Dietary sodium restriction. Weight loss. Regular aerobic exercise. Stop smoking. Blood pressure will be reassessed in 3 months. Right rotator cuff tendinitis 12/06/2016 Assessment & Plan (06/12/2018 4:39 PM CDT): Patient's symptoms and exam are most fitting of rotator cuff tendinitis. After reviewing the treatment options patient elected undergo a follow-up cortisone injection today. She was advised if she is not getting lasting relief further workup with an MRI would be indicated to rule out the development of a tear Assessment & Plan (03/12/2018 5:27 PM FORENSIC ENGINEER): Patient gotten relatively good relief from previous cortisone injection with the injection wearing off wanted proceed with a follow-up injection. We reviewed the treatment options patient elected undergo a shot today. She tolerated the procedure well. Assessment & Plan (07/25/2017 5:02 PM CDT): A cortisone injection was given through a sterile field into the subacromial space. She tolerated the procedure well. She should avoid overuse Assessment & Plan (12/06/2016 4:33 PM CDT): By MRI the patient's rotator cuff is intact but there is underlying evidence of tendinitis and bursitis. A cortisone injection was given through a sterile field into the subacromial space. If she is not getting adequate relief with this alone she was prescribed physical therapy which is usually helpful as well. If she is having any persistent symptoms in six weeks she is to return to the office Tear of right rotator cuff 11/24/2016 Assessment & Plan (11/24/2016 4:10 PM CDT): There high-grade partial-thickness tear or full-thickness tear of the rotator cuff. Would recommend an MRI to evaluate the integrity of the cuff initiate appropriate treatment once results are available Hypothyroidism 07/20/2013 Overview (06/08/2016): Hypothyroidism Assessment & Plan (12/05/2017 8:13 AM CDT): - check TSH and continue current medications Assessment & Plan (10/27/2017 12:59 PM CDT): - continue current medications - advised to monitor for symptoms, depression, dry skin, constipation - will check TSH annually Assessment & Plan (06/08/2017 10:25 AM CDT): Compliant on Levothyroxine. TSH recently checked and was WNL. Assessment & Plan (01/29/2017 6:17 PM FORENSIC ENGINEER): Plan to check TSH Reflux 07/20/2013 Overview (06/08/2016): Reflux Arthralgia of multiple joints 07/20/2013 Overview (06/08/2016): Multiple joint pain Assessment & Plan (12/05/2017 8:15 AM CDT): - add meloxicam for joint pains Depression 07/20/2013 Overview (06/09/2016): DEPRESSIVE DISORDER NEC Fibromyalgia 12/27/2011 Overview (06/08/2016): Fibromyalgia Assessment & Plan (12/05/2017 8:12 AM CDT): - continue current medications and encouraged activity Assessment & Plan (10/27/2017 1:00 PM CDT): - continue medical management of symptoms - encouraged being as active as possible Assessment & Plan (06/08/2017 10:24 AM CDT): Stable. On lyrica Assessment & Plan (01/29/2017 6:17 PM FORENSIC ENGINEER): Plan to taper prednisone. Will start Lyrica 75 mg BID. Constipation Assessment & Plan (12/05/2017 8:13 AM CDT): - continue linzess Assessment & Plan (10/27/2017 1:03 PM CDT): - continue linzess as directed Assessment & Plan (06/08/2017 10:23 AM CDT): No relief with OTC agents. Will start Linzess 145 mg daily. Immunizations Immunization Administration Dates Next Due Influenza, Quadrivalent, Spl it, Intramuscular 01/19/2016 Influenza, Quadrivalent, Spl it, Preservative Free, Intramuscular 01/11/2019,12/05/2017,01/23/2017 Influenza, Split 12/20/2010,01/12/2010 Influenza, Trivalent, Cell C ulture-based MDCK, Preservative Free, Antibiotic Free, Intramuscular 01/08/2020 Influenza, Trivalent, IM (MDV) 12/04/2013,2012,12/23/2007 Influenza, Trivalent, Preser vative Free, Intramuscular 01/04/2018 Influenza, Trivalent, Split, Preservative Free, Intradermal 01/01/2015 Td, Adsorbed, Preservative F ree, Adult Use, Lf Unspecified 03/24/2008 Td, adsorbed 03/24/2008 Surgical History Surgery Date Site/Laterality Comments OTHER SURGICAL HISTORY Abnormal Pap smear: [facility] OTHER SURGICAL HISTORY TVH/bladder tie up TONSILLECTOMY Tonsillectomy OTHER SURGICAL HISTORY knee pain: physical therapy/ice APPENDECTOMY 03/06/1989 - 03/05/1990 Appendectomy OTHER SURGICAL HISTORY 03/06/2011 - 03/05/2012 L5-S1 Spondylolisthesis: Ant/pos L5-S1 fusion HYSTERECTOMY 03/06/2006 - 03/05/2007 Hysterectomy Medical History Medical History Date Comments Depression Depression Gastroesophageal reflux disease GERD Hx Other Medical 1997 Abnormal Pap sm ear Hx Other Medical ganglion cyst-w rist Hx Other Medical Thumb-bone spur Hx Other Medical 2008 knee pain Hx Other Medical esophageal cand idiasis Hx Other Medical Isthmic Spondyl olisthesis Grade 1 Hx Other Medical 2011 L5-S1 Spondylol isthesis Lupus Fibromyalgia Family History * Patient is adopted Medical History Relation Name Comments Other Cousin breast tumor; Anxiety disorder Father Anxiety; Depression Father Depression; Hypertension Father Hypertension; Hypertension Mother Hypertension; Other Mother Kidney failure after knee surg; /Tobaccoism; Other Other JRA; Stroke Paternal Grandmother Stroke; Multiple sclerosis Sister 1 Lisseth Multiple sclerosis; Other Sister 2 Lisseth-younger unknown-?ms; Rheum arthritis Sister 3 Rheumatoid a rthritis; Relation Name Status Comments Cousin Father Mother Other Paternal Grandmother Sister 1 Lisseth Alive Sister 2 Lisseth-younger Sister 3 Social History Tobacco Use Types Packs/Day Years Used Date Smoking Tobacco: Former Cigarettes 1 30 0 04/06/1988 - 04/06/2018 Smokeless Tobacco: Never Alcohol Use Standard Drinks/Week Comments Yes 0 (1 standard drink = 0.6 oz pur e alcohol) occasinonl but h/o heavy use. [facility] Utilities Answer Date Recorded In the past 12 months has e EQO, gas, oil, or water [employer] threatened to shut off services in your home? No 05/26/2023 Social Connection and Isolation Panel Answer Date Recorded In a typical week, how many times do you talk on the phone with family, friends, or neighbors? More than three times a week 05/26/2023 How often do you get togethe r with friends or relatives? More than three times a week 05/26/2023 How often do you attend chur ch or protestant services? Never 05/26/2023 Do you belong to any clubs o r organizations such as yarsanism groups, unions, fraternal or athletic groups, or school groups? No 05/26/2023 How often do you attend meet ings of the clubs or organizations you belong to? Never 05/26/2023 Are you , , di vorced, , never , or living with a partner? Living with partner 05/26/2023 Overall Financial Resource Strain (CARDIA) Answe r Date Recorded How hard is it for you to pa y for the very basics like food, housing, medical care, and heating? Not very hard 05/26/2023 PHQ-2 Answer Date Recorded PHQ-2 Score 0 05/09/2018 Hunger Vital Sign Answer Date Recorded Within the past 12 months, y ou worried that your food would run out before you got the money to buy more. Never true 05/26/19 24 Within the past 12 months, t he food you bought just didn't last and you didn't have money to get more. Never true 05/26/2023 PRAPARE - Transportation Answer Date Re corded In the past 12 months, has l ack of transportation kept you from medical appointments or from getting medications? No 05/05 In the past 12 months, has l ack of transportation kept you from meetings, work, or from getting things needed for daily living? No 05/26/2023 Housing Stability Vital Sign Answer Yuan e Recorded In the last 12 months, was t here a time when you were not able to pay the mortgage or rent on time? No 05/26/2023 In the last 12 months, how many places have you lived? 1 05/26/2023 In the last 12 months, was t here a time when you did not have a steady place to sleep or slept in a care home (including now)? No 05/26/2023 Personal Safety Answer Date Recorded Have you ever been in or are you currently in a harmful physical or emotional relationship or is someone making you feel afraid or unsafe? 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02) 06/10/2023 12:48 PM C DT Body Mass Index 25.98 06/02/2023 5:00 AM CDT Plan of Treatment Health Maintenance Due Date Last Done Comments Colon Cancer Screening-Colonoscopy 1968 Hepatitis B Screening 1986 Regular Well Visit/Exam 18-64 1986 Pneumococcal vaccine <65 (1 of 2 - PCV) 06/12/1987 Depression Screening 10/27/2018 10/27/2017, 06/08/2017, 01/23/2017 Covid-19 Vaccine (4 - 2024-2 6 season) 2024 02/17/2021, 06/12/2020, 05/15/2020 Influenza Vaccine (#1) 2024 , 11/28/2023, 05/03/2023, Additional history exists Breast Cancer Screening-Mammogram 01/25/2025 01/26/2024, 01/26/2024, 07/03/2021, Additional history exists DTaP/Tdap/Td Vaccine (3 - Td or Tdap) 05/03/2033 05/03/2023, 06/20/2022, 03/24/2008, Additional history exists Hepatitis C Screening Completed 02/02/2017 Zoster Vaccine Completed 02/02/2022, 06/19/2021 Medical Devices Implanted Type Area Real Estate Paralegal Device Identifier Shelf Expiration Date Model / Serial / Lot Spinal Cord Stimulator-04/10/2022 Implanted:07/2022 (Quantity not on file) Spinal Cord Stimulator N/A: Back Medtronic Description:See Progress Not e dated 04/10/2022 linked to office visit 03/21/2022 Procedures Procedure Name Priority Date/Time Associated Diagnosis Comments SCREENING MAMMOGRAM BILATERAL W LUTHER Schedule Routine, Read Routine (OP Routine) 06/29/2018 2:06 PM CDT Breast cancer screening HEPATITIS PANEL, ACUTE Routine 02/02/2017 3:50 PM FORENSIC ENGINEER Elevated LFTs from Last 3 Months or Most Recently Relevant to Health Maintenance Results * Screening Mammogram Bilateral W Luther (06/29/2018 2:06 PM CDT) Anatomical Region Laterality Modality Breast Bilateral Mammography 06/29/2018 2:31 PM CDT Impressions 06/29/2018 2:32 PM CDT BI-RADS Category 2 benign findings. RECOMMENDATION: Bilateral annual screening mammogram. Electronically signed by: Nay Thomas 06/29/2018 2:32 PM CDT EXAM: BILATERAL DIGITAL SCREENING MAMMOGRAM WITH DIGITAL TOMOSYNTHESIS DATE: 06/29/2018. CLINICAL HISTORY: Encounter for screening mammogram for malignant neoplasm of breast TECHNIQUE: Bilateral full field digital mammography and digital tomosynthesis were performed in the CC and MLO projections. Comparison is made to the previous mammogram dated 07/20/2016. CAD was utilized. Findings: The background breast parenchyma appears stable, with the appearance of scattered areas of fibroglandular densities. No malignant features are seen in either breast. A benign calcification appears stable. Henry Silveira NP IMG MAMMO PROCEDURES Final Re sult * Hepatitis panel, acute (02/02/2017 3:50 PM FORENSIC ENGINEER) Hep A IgM Negative Negative [facility] Hep B core IgM Negative Negative [facility] Hep C Ab Negative Negative [facility] HepBsAg Negative Negative [facility] Blood specimen (specimen) 02/02/2017 3:50 PM FORENSIC ENGINEER 02/02/2017 6:08 PM FORENSIC ENGINEER Narrative [facility] - 02/02/2017 8:49 PM FORENSIC ENGINEER Yuliana Florez NP LAB MICROBIOLOGY - GENERAL ORDERABLES Final Result [facility] [id number] Department [place] [address] from Last 3 Months or Most Recently Relevant to Health Maintenance Insurance [facility] H[facility]/PPO Address: [facility] [address] [place] [address] [facility] IDPA IDPA Advance Directives For more information, please contact: [phone] * Full Code (Latest Code Status on File) Date Activated Date Inactivated Comments 05/25/2023 9:42 PM 06/15/2023 7:20 PM * Full Code Date Activated Date Inactivated Comments 06/01/2017 9:15 PM 06/03/2017 1:33 AM Care Teams Web Publisher Relationship Specialty Start Date End Date Felecia Saenz NP [address] [place] [address] PCP - General 06/12/18 Rl Owens MD [address] [place] [address] Consulting Physician Gastroenterology 06/02/17 Gabriel Wood MD [address] [facility] [address] [place] [address] Consulting Physician Pulmonary Disease 06/02/17
--- OUTSIDE RECORDS SUMMARY | 2025-02-22 12:12 | XMS_ITS | Encounter Summary ---
Author Organization [facility] Address [address] [place] [address] Phone Care Team Providers Care Cyber Systems Operations Specialist Name Role Phone Yuliana Florez APN Unavailable Unavailab Felecia Hendricks BOOM CAT OPERATOR, DETECTIVE AND INTELLIGENCE ANALYST Primary Care Provider Damaso Vazquez MD Primary Care Provider [phone] Michel Yanez APRN, DETECTIVE AND INTELLIGENCE ANALYST Unavailable [phone] Laureano Quigley MD Unavailable [phone] Elsa Kenny APRN, DETECTIVE AND INTELLIGENCE ANALYST Unavailable + [phone] Saurav Goyal MD Unavailable Homer Alcala MD Primary Care Provider [phone] Yuni MenesesW Unavailable Unavailab Ayala Orozco BOOM CAT OPERATOR, SOCIOLOGY ADJUNCT INSTRUCTOR Unavailable [phone] Reason for Visit * Reason Comments Medication Refill Encounter Details Date Type Department Care Team (Late st Contact Info) Description 03/31/2020 [facility] [address] [place] [address] Harriett Ricks, BOOM CAT OPERATOR, DETECTIVE AND INTELLIGENCE ANALYST [address] [place] [address] Medication Refill Social History Tobacco Use Types [...] COVID-19? No / Unsure 03/30/2020 4:06 PM FLUXER documented as of this encounter Plan of Treatment Upcoming Encounters Date Type Department Care Team (Latest Contact Info) Description 03/03/2025 10:00 AM FLUXER Office Visit [facility] - Orthopedic Surgery [facility] #2 [place] [address] Homer Alcala MD #2 [facility] [address] [place] [address] Ann Graham MD #2 [facility] [address] [place] [address] 03/04/2025 2:00 PM FLUXER Office Visit [facility] - Cardiology [facility] #2 [place] [address] Homer Alcala MD #2 [facility] [address] [place] [address] Carolin Sykes, BOOM CAT OPERATOR, DETECTIVE AND INTELLIGENCE ANALYST 2 [facility] [address] [place] [address] 03/19/2025 10:15 AM FLUXER [facility] 200 [facility], [facility] [address] [place] [address] Sujata Winn, BOOM CAT OPERATOR, DETECTIVE AND INTELLIGENCE ANALYST [address] [place] [address] Michelle Patel, PT [place] Discharge Disposition: Discharged to home or Selfcare 03/21/2025 1:30 PM FLUXER [facility] [place] #2 [place] [address] Ayala Weaver APRN, SOCIOLOGY ADJUNCT INSTRUCTOR #2 [place] [address] 04/29/2025 9:00 AM FLUXER [facility] [place] #2 [place] [address] Ayala Weaver APRN, SOCIOLOGY ADJUNCT INSTRUCTOR #2 [place] [address] 05/09/2025 11:00 AM FLUXER Office Visit [facility] - Pulmonology & Sleep Medicine - [place] #2 [place] [address] Saurav Goyal MD #2 [place] [address] documented as of this encounter Goals Goal Patient Goal Type Associated Problems Recent Progress Patient-Stated? Author Depression Behavioral Health On track(2024 4:40 PM CDT) Flora Miller LCSW Note: GOAL: Lisseth will manage depressive symptoms more effectively. Goal Reviewed with: patient today Readiness to change: Ready to change Department associated with goal: [facility] Steps to achieve [...] 19 04/05/2024 04/05/2024 04/05/2024 12:3 5 PM FLUXER COVID - 19 05/19/2024 05/19/2024 05/19/2024 6:18 PM CDT Assessment Noted Time PHQ-9 Depression Total Score: 1 01/12/20 19 5:00 PM FLUXER documented as of this encounter Care Teams Cyber Systems Operations Specialist Relationship Specialty Start Date End Date Felecia Saenz APRN, DETECTIVE AND INTELLIGENCE ANALYST [address] [place] [address] PCP - General Advanced Practice Nurse 03/14/18 05/27/20 Damaso Vazquez MD [address] [place] [address] PCP - General Family Medicine 05/28/20 08/31/23 Homer Alcala MD #2 [address] [facility] [address] [place] [address] PCP - General Family Medicine 09/01/23 Yuliana Florez, STRAIGHTENING ROLL OPERATOR Advanced Practice Nurse 01/24/18 Michel Yanez, BOOM CAT OPERATOR, DETECTIVE AND INTELLIGENCE ANALYST #2 [place] [address] Nurse Practitioner Advanced Practice Nurse 12/28/21 Laureano Quigley MD #2 [facility] [address] [place] [address] Consulting Physician Urology 02/04/22 Elsa Kenny, BOOM CAT OPERATOR, DETECTIVE AND INTELLIGENCE ANALYST #2 [facility] [address] [place] [address] Nurse Practitioner Cardiology 07/14/23 09/17/24 Saurav Goyal MD #2 [place] [address] Consulting Physician Pulmonary Disease 07/28/23 Yuni Meneses, MIXER OPERATOR TABLETS [place] Electromechanical Equipment Tester Airfield Engineer Officer 11/27/23 12/04/23 Ayala Weaver, BOOM CAT OPERATOR, SOCIOLOGY ADJUNCT INSTRUCTOR #2 [place] [address] Nurse Practitioner Neurology 12/18/23 documented as of this encounter
--- OUTSIDE RECORDS SUMMARY | 2025-02-22 12:12 | XMS_ITS | Encounter Summary ---
Author Organization [facility] Address [address] [place] [address] Phone Care Team Providers Care Psychologists Name Role Phone Yuliana Florez APN Unavailable Unavailab Michel Shepherd APRN, GOLD BLOWER Unavailable [phone] Laureano Quigley MD Unavailable [phone] Saurav Goyal MD Unavailable Homer Alcala MD Primary Care Provider [phone] Ayala Weaver APRN, CLERICAL ADMINISTRATIVE ASSISTANT Unavailable + [phone] Reason for Visit * Reason Comments Medication Refill Encounter Details Date Type Department Care Team (Late st Contact Info) Description 12/09/2024 Refill [facility] Medical [facility] #2 [place] [address] Homer Alcala MD #[address] [address] Medication Refill Social History Tobacco Use Types Packs/Day Years Used Date Smoking Tobacco: Former Cigarettes 0 Q uit: 03/13/1988 Smokeless Tobacco: Never Alcohol Use Standard Drinks/Week Comments Not Currently 0 (1 standard drink = 0.6 oz pur e alcohol) seldom [facility] Utilities Answer Date Recorded In the past 12 months has e [employer]), gas, oil, or water [employer] threatened to shut off services in your home? Patient declined 04/16/2024 Social Connection and Isolation Panel Answer Date Recorded In a typical week, how many times do you talk on the phone with family, friends, or neighbors? Patient declined 04/16/2024 How often do you get togethe r with friends or relatives? Patient declined 04/16/2024 How often do you attend gnosticist or worship serv ices? Patient declined 04/16/2024 Do you belong to any clubs o r organizations such as gnosticist groups, unions, fraternal or athletic groups, or [...] Score - Questions 1-9 0 /2 [facility] of Occupat ional Health - Occupational Stress [...] any time in the past 12 m [facility], were you homeless or living in a longterm (including now)? 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 Not on file Not on file documented as of this encounter Miscellaneous Notes * Telephone Encounter - Darline Seth RN - 12/09/2024 3:22 PM CDT Refill on file for December documented in this encounter Plan of Treatment Upcoming Encounters Date Type Department Care Team (Latest Contact Info) Description 03/03/2025 10:00 AM OPERATIONS CLERK Office Visit [facility] Medical [facility] - Orthopedic Surgery - [place] #2 [place] [address] Homer Alcala MD #2 [facility] [address] [place] [address] Ann Graham MD #[address] [address] 03/04/2025 2:00 PM OPERATIONS CLERK Office Visit [facility] Cardiology - [place] #2 [place] [address] Homer Alcala MD #[address] [address] Carolin Sykes APRN, GOLD BLOWER 2 [facility] [address] [place] [address] 03/19/2025 10:15 AM OPERATIONS CLERK Physical [facility] 200 [facility] H1 [place] [address] Sujata Winn APRN, GOLD BLOWER [address] [place] [address] Michelle Patel, PT [place] Discharge Disposition: Discharged to home or Selfcare 03/21/2025 1:30 PM OPERATIONS CLERK [facility] [place] #2 [place] [address] Ayala Weaver, PHYSICAL THERAPIST ASSISTANT, CLERICAL ADMINISTRATIVE ASSISTANT #2 [place] [address] 04/29/2025 9:00 AM OPERATIONS CLERK Office Visit [facility] - Neurology - [place] #2 [facility] [place] [address] Ayala Weaver, PHYSICAL THERAPIST ASSISTANT, CLERICAL ADMINISTRATIVE ASSISTANT #2 [place] [address] 05/09/2025 11:00 AM OPERATIONS CLERK Office Visit [facility] - Pulmonology & Sleep Medicine - [place] #2 [place] [address] Saurav Goyal MD #2 [place] [address] documented as of this encounter Goals Goal Patient Goal Type Associated Problems Recent Progress Patient-Stated? Author Depression Behavioral Health On track(2024 4:40 PM CDT) No Flora Yip LCSW Note: GOAL: Lisseth will manage depressive symptoms more effectively. Goal Reviewed with: patient today Readiness to change: Ready to change Department associated with goal: [facility] Steps to achieve [...] Ready to change Department associated with goal: [facility] Steps to achieve [...] Ready to change Department associated with goal: [facility] Steps to achieve [...] Ready to change Department associated with goal: [facility] Steps to achieve [...] Noted Time PHQ-9 Depression Total Score: 0 05/20/20 25 7:49 AM CDT documented as of this encounter Care Teams Psychologists Relationship Specialty Start Date End Date Homer Alacla MD #2 [facility] [address] [place] [address] PCP - General Family Medicine 09/01/23 Yuliana Florez, BUMP GRADER OPERATOR Advanced Practice Nurse 01/24/18 Michel Yanez, PHYSICAL THERAPIST ASSISTANT, GOLD BLOWER #2 [place] [address] Nurse Practitioner Advanced Practice Nurse 12/28/21 Laureano Quigley MD #2 [facility] [address] [place] [address] Consulting Physician Urology 02/04/22 Saurav Goyal MD #2 [place] [address] Consulting Physician Pulmonary Disease 07/28/23 Ayala Weaver, PHYSICAL THERAPIST ASSISTANT, CLERICAL ADMINISTRATIVE ASSISTANT #2 [place] [address] Nurse Practitioner Neurology 12/18/23 documented as of this encounter
--- OUTSIDE RECORDS SUMMARY | 2025-02-22 12:13 | XMS_ITS | Encounter Summary ---
Author Organization [facility] Address [address] [place] [address] Phone Care Team Providers Care Window Framer Name Role Phone Yuliana Florez APN Unavailable Unavailab Damaso Chaudhari MD Primary Care Provider [phone] Michel Yanez APRN, BURGLAR ALARM SUPERINTENDENT Unavailable [phone] Laureano Quigley MD Unavailable [phone] Elsa Kenny APRN, BURGLAR ALARM SUPERINTENDENT Unavailable + [phone] Saurav Goyal MD Unavailable Homer Alcala MD Primary Care Provider [phone] Yuni Meneses LUNCHROOM OPERATOR Unavailable Unavailab Aayla Orozco APRN, BEHAVIORAL HEALTH COUNSELOR Unavailable + [phone] Reason for Visit * Reason Comments Medication Refill Encounter Details Date Type Department Care Team (Late st Contact Info) Description 06/29/2020 Refill [facility] [address] [place] [address] Felecia Saenz, ORANGE GROWER, BURGLAR ALARM SUPERINTENDENT [address] [place] [address] Medication Refill Social History Tobacco Use Types [...] 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 No / Unsure 06/30/2020 3:21 PM CDT documented as of this encounter Functional Status documented as of this encounter Mental Status * Question Answer Entry Date Author BP 90/60 06/30/2020 3:57 PM CDT Gifty Aquino RMA Temp 97.8 06/30/2020 3:57 PM CDT Gifty Aquino, RMA Pulse 65 06/30/2020 3:57 PM CDT Gifty Aqunio, RMA SpO2 97 06/30/2020 3:57 PM CDT Gifty Aquino RMA documented in this encounter Miscellaneous Notes * Telephone Encounter - Veronica Keating RN - 06/29/2020 10:05 AM CDT Medication failed the protocol, provider to review and approve the medication order if appropriate. Requested Prescriptions Pending Prescriptions Disp Refills albuterol 108 (90 Base) MCG/ACT Aerosol Solution [Pharmacy Med Name: ALBUTEROL SULFATE HFA 108 ( 108 (90 BAS Aerosol] 18 g 1 Sig: TAKE 2 PUFFS BY INHALATION EVERY 4 HOURS NEEDED FOR WHEEZING. [facility] Pulmonology: Beta Agonists - Albuterol & Levalbuterol Failed - 06/29/2020 10:05 AM Failed - May refill 2 inhalers, 0 refills one time since last office visit. May refill #50 nebulizer vials, 0 refills for albuterol or #48 vials, 0 refills for Xopenex one time since last office visit. Passed - Valid encounter within last 6 months Past Office Visits Recent Outpatient Visits 1 month ago Benign essential HTN [facility] [place] Damaso Vazquez MD 4 months ago Pain in both lower extremities [facility] [place] Felecia Giang, DANIELLE, STEPHANIE 11 months ago Chest pain, unspecified type [facility] - Felecia Gama, DANIELLE, BURGLAR ALARM SUPERINTENDENT 1 year ago Anxiety [facility] - Felecia Gama APN, BURGLAR ALARM SUPERINTENDENT 1 year ago Encounter for vaccination [facility] - Felecia Gama, DANIELLE, BURGLAR ALARM SUPERINTENDENT Upcoming Appointments Future Appointments Tomorrow Damaso Vazquez MD [facility] In [address] [facility] at [facility] In [address] [facility], [facility] HOME THERAPY CLINICIAN - Recent and Past Visits Recent Visits Date Type Provider Dept 05/28/20 Office Visit Damaso Vazquez MD [facility] 02/10/20 Office Visit Felecia Saenz APN, CNP [facility] 08/02/19 Office Visit Felecia Saenz APN, CNP [facility] 06/24/19 Telemedicine Felecia Saenz APN, CNP [facility] Showing recent visits within past 460 days with a meds authorizing provider and meeting all other requirements Future Appointments Date Type Provider Dept 06/30/20 Appointment Damaso Vazquez MD [facility] Showing future appointments within next 90 days with a meds authorizing provider and meeting all other requirements Passed - Last BP in normal range BP Readings from Last 1 Encounters: 05/28/20 130/70 documented in this encounter Plan of Treatment Upcoming Encounters Date Type Department Care Team (Latest Contact Info) Description 03/03/2025 10:00 AM CODING SPECIALIST HOME HEALTH Office Visit [facility] - Orthopedic Surgery - [place] #[address] [place] [address] Homer Alcala MD #2 [facility] [address] [place] [address] Ann Graham MD #2 [facility] [address] [place] [address] 03/04/2025 2:00 PM CODING SPECIALIST HOME HEALTH Office Visit [facility] - Cardiology - [place] [address] [place] [address] Homer Alcala MD #2 [facility] [address] [place] [address] Carolin Sykes APRN, BURGLAR ALARM SUPERINTENDENT 2 [facility] [address] [place] [address] 03/19/2025 10:15 AM CODING SPECIALIST HOME HEALTH Physical Therapy [facility] at [facility] 200 [facility], [facility] H1 [place] [address] Sujata Winn, ORANGE GROWER, BURGLAR ALARM SUPERINTENDENT [address] [place] [address] Michelle Patel, PT [place] Discharge Disposition: Discharged to home or Selfcare 03/21/2025 1:30 PM CODING SPECIALIST HOME HEALTH Office Visit [facility] Neurology - [place] #2 [place] [address] Ayala Weaver, ORANGE GROWER, BEHAVIORAL HEALTH COUNSELOR #2 [place] [address] 04/29/2025 9:00 AM CODING SPECIALIST HOME HEALTH Office Visit [facility] - Neurology - [place] #2 [place] [address] Ayala Weaver, ORANGE GROWER, BEHAVIORAL HEALTH COUNSELOR #2 [place] [address] 05/09/2025 11:00 AM CODING SPECIALIST HOME HEALTH Office Visit [facility] - Pulmonology & Sleep Medicine - [place] #2 [place] [address] Saurav Goyal MD #2 [place] [address] documented as of this encounter Goals Goal Patient Goal Type Associated Problems Recent Progress Patient-Stated? Author Depression Behavioral Health On track(2024 4:40 PM CDT) Flora Miller, ROBERTO Note: GOAL: Lisseth will manage depressive symptoms more effectively. Goal Reviewed with: patient today Readiness to change: Ready to change Department associated with goal: [facility] Steps to achieve [...] 19 04/05/2024 04/05/2024 04/05/2024 12:3 5 PM CODING SPECIALIST HOME HEALTH COVID - 19 05/19/2024 05/19/2024 05/19/2024 6:18 PM CDT Assessment Noted Time PHQ-9 Depression Total Score: 1 01/12/20 19 5:00 PM CODING SPECIALIST HOME HEALTH documented as of this encounter Care Teams Window Framer Relationship Specialty Start Date End Date Damaso Vazquez MD PCP - General Family Medicine 05/28/20 08/31/23 Homer Alcala MD #2 [facility] [address] [place] [address] PCP - General Family Medicine 09/01/23 Yuliana Florez, COMMUNICATIONS TOWER TECHNICIAN Advanced Practice Nurse 01/24/18 Michel Yanez ORANGE GROWER, BURGLAR ALARM SUPERINTENDENT #2 [place] [address] Nurse Practitioner Advanced Practice Nurse 12/28/21 Laureano Quigley MD #2 [facility] [address] [place] [address] Consulting Physician Urology 02/04/22 Elsa Kenny ORANGE GROWER, BURGLAR ALARM SUPERINTENDENT #2 [facility] [address] [place] [address] Nurse Practitioner Cardiology 07/14/23 09/17/24 Saurav Goyal MD #2 [place] [address] Consulting Physician Pulmonary Disease 07/28/23 Yuni Meneses, LUNCHROOM OPERATOR [place] Wash Plant Operator Blue Line Hanger 11/27/23 12/04/23 Ayala Weaver, ORANGE GROWER, BEHAVIORAL HEALTH COUNSELOR #2 [place] [address] Nurse Practitioner Neurology 12/18/23 documented as of this encounter
--- OUTSIDE RECORDS SUMMARY | 2025-02-22 12:13 | XMS_ITS | Encounter Summary ---
Author Organization [facility] Address [address] [place] [address] Phone Care Team Providers Care Fountain Brush Assembler Name Role Phone Yuliana Florez APN Unavailable Unavailab Michel Shepherd APRN, STEWARD/STEWARDESS WINE Unavailable [phone] Laureano Quigley MD Unavailable [phone] Saurav Goyal MD Unavailable Homer Alcala MD Primary Care Provider [phone] Ayala Weaver APRN, FOREST AIDE Unavailable + [phone] Reason for Visit * Reason Comments Medication Refill Encounter Details Date Type Department Care Team (Late st Contact Info) Description 02/21/2025 Refill [facility] Medical [facility] [place] #2 [place] [address] Homer Alcala MD #[address] [address] Medication Refill Social History Tobacco Use Types Packs/Day Years Used Date Smoking Tobacco: Former Cigarettes 0 Q uit: 03/13/1988 Smokeless Tobacco: Never Alcohol Use Standard Drinks/Week Comments Not Currently 0 (1 standard drink = 0.6 oz pur e alcohol) seldom [facility] Utilities Answer Date Recorded In the past 12 months has e [employer], gas, oil, or water [employer] threatened to shut off services in your home? Patient declined 04/16/2024 Social Connection and Isolation Panel Answer Date Recorded In a typical week, how many times do you talk on the phone with family, friends, or neighbors? Patient declined 04/16/2024 How often do you get togethe r with friends or relatives? Patient declined 04/16/2024 How often do you attend latter day or buddhist serv ices? Patient declined 04/16/2024 Do you belong to any clubs o r organizations such as latter day groups, unions, fraternal or athletic groups, or [...] Score - Questions 1-9 0 11/0 06/2024 [facility] of Occupat ional Health - Occupational Stress [...] were you homeless or living in a custodial (including now)? 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 205 [place] [address] Ann Graham MD #2 [facility] [place] [facility] [address] [place] [address] 03/04/2025 2:00 PM WILDERNESS GUIDE [facility] [place] #2 [place] [address] Homer Alcala MD #2 [facility] [address] [place] [address] Carolin Sykes, SHUTTLE HAND, STEWARD/STEWARDESS WINE 2 [facility] [address] [place] [address] 03/19/2025 10:15 AM WILDERNESS GUIDE Physical Therapy [facility] Rehab at [facility] 200 [facility] H1 [place] [address] Sujata Winn, SHUTTLE HAND, STEWARD/STEWARDESS WINE [address] [place] [address] Michelle Patel, PT [place] Discharge Disposition: Discharged to home or Selfcare 03/21/2025 1:30 PM WILDERNESS GUIDE [facility] - [place] #2 [place] [address] Ayala Weaver, SHUTTLE HAND, FOREST AIDE #2 [place] [address] 04/29/2025 9:00 AM WILDERNESS GUIDE [facility] - [place] #2 [place] [address] Ayala Weaver, SHUTTLE HAND, FOREST AIDE #2 [place] [address] 05/09/2025 11:00 AM WILDERNESS GUIDE Office Visit [facility] - Pulmonology & Sleep Medicine - [place] #2 [place] [address] Saurav Goyal MD #2 [place] [address] documented as of this encounter Goals Goal Patient Goal Type Associated Problems Recent Progress Patient-Stated? Author Depression Behavioral Health On track(2024 4:40 PM CDT) No Flora Yip LCSW Note: GOAL: Lisseth will manage depressive symptoms more effectively. Goal Reviewed with: patient today Readiness to change: Ready to change Department associated with goal: [facility] Steps to achieve [...] Ready to change Department associated with goal: [facility] Steps to achieve [...] Ready to change Department associated with goal: [facility] Steps to achieve [...] Ready to change Department associated with goal: [facility] Steps to achieve [...] Total Score: 0 01/08/20 25 5:14 PM WILDERNESS GUIDE documented as of this encounter Care Teams Fountain Brush Assembler Relationship Specialty Start Date End Date Homer Alcala MD #[address] [address] PCP - General Family Medicine 09/01/23 Yulinaa Florez APN Advanced Practice Nurse 01/24/18 Michel Yanez APRN, STEWARD/STEWARDESS WINE #2 [place] [address] Nurse Practitioner Advanced Practice Nurse 12/28/21 Laureano Quigley MD #[address] [address] Consulting Physician Urology 02/04/22 Saurav Goyal MD #2 [place] [address] Consulting Physician Pulmonary Disease 07/28/23 Ayala Weaver APRN, FOREST AIDE #2 [place] [address] Nurse Practitioner Neurology 12/18/23 documented as of this encounter
--- OUTSIDE RECORDS SUMMARY | 2025-02-22 12:13 | XMS_ITS | Encounter Summary ---
Author Organization [facility] Address [address] [place] [address] Phone Care Team Providers Care Admissions Manager Name Role Phone Yuliana Florez APN Unavailable Unavailab Damaso Chaudhari MD Primary Care Provider [phone] Michel Yanez APRN, ANALYST MARKET INTELLIGENCE Unavailable [phone] Laureano Quigley MD Unavailable [phone] Elsa Kenny APRN, ANALYST MARKET INTELLIGENCE Unavailable + [phone] Saurav Goyal MD Unavailable Homer Alcala MD Primary Care Provider [phone] Yuni Meneses PUSH CONNECTOR ASSEMBLER Unavailable Unavailab Ayala Orozco APRN, BROOMMAKING SUPERVISOR Unavailable + [phone] Reason for Visit * Reason Comments Medication Refill Encounter Details Date Type Department Care Team (Late st Contact Info) Description 08/28/2020 Refill [facility] [address] [place] [address] Damaso Vazquez MD [address] [place] [address] Medication Refill Social History Tobacco Use Types Packs/Day Years Used Date Smoking Tobacco: Former Cigarettes 0.5 30 0 03/13/1988 - 03/13/2018 Smokeless Tobacco: Never Alcohol Use Standard Drinks/Week Comments Not Currently 0 (1 standard drink = 0.6 oz pur e alcohol) seldom PHQ-2 Answer Date Recorded PHQ-2 Score 1 01/11/2019 Sexually Active Control Partners Comments Yes Comments No Sex and Gender Information Value Date Recorded Sex Assigned at Not on file Legal Sex Female 8:32 AM CDT Gender Identity Not on file Sexual Orientation Not on file 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 No / Unsure 08/20/2020 3:53 PM CDT documented as of this encounter Miscellaneous Notes * Telephone Encounter - Homer Alcala MD - 08/31/2020 10:58 AM CDT Prescription approved. Please call in * Telephone Encounter - Darline Seth RN - 08/28/2020 1:23 PM CDT Medication failed the protocol, provider to review and approve the medication order if appropriate. Requested Prescriptions Pending Prescriptions Disp Refills albuterol 108 (90 Base) MCG/ACT Aerosol Solution [Pharmacy Med Name: ALBUTEROL SULFATE HFA 108 ( 108 (90 BAS Aerosol] 18 g 1 Sig: TAKE 2 PUFFS BY INHALATION EVERY 4 HOURS NEEDED FOR WHEEZING. Short Acting Inhaled Beta-Agonists Protocol Passed - 08/28/2020 8:16 AM Passed - Visit with relevant provider in past 12 months or upcoming 90 days Recent Visits Date Type Provider Dept 06/30/20 Office Visit Damaso Vazquez MD [facility] 05/28/20 Office Visit Damaso Vazquez MD [facility] 02/10/20 Office Visit Felecia Saenz APN, ANALYST MARKET INTELLIGENCE [facility] Showing recent visits within past 365 days and meeting all other requirements Future Appointments Date Type Provider Dept 09/01/20 Appointment Damaso Vazquez MD [facility] Showing future appointments within next 90 days and meeting all other requirements FLUoxetine (PROzac) 20 MG Capsule [Pharmacy Med Name: FLUOXETINE HCL 20 MG CAP 20 Capsule] 60 Capsule 1 Sig: Take 2 Capsules by mouth daily. SSRI (6 Month Refill Only) Protocol Failed - 08/28/2020 8:16 AM Failed - Patient has establiashed therapy with SSRI for at least 6 months Passed - Visit with relevant provider in past 6 months or upcoming 90 days Recent Visits Date Type Provider Dept 06/30/20 Office Visit Damaso Vazquez MD [facility] 05/28/20 Office Visit Damaso Vazquez MD [facility] Showing recent visits within past 182 days and meeting all other requirements Future Appointments Date Type Provider Dept 09/01/20 Appointment Damaso Vazquez MD [facility] Showing future appointments within next 90 days and meeting all other requirements Passed - Has an encounter in the past 6 months with a depression, anxiety, adjustment disorder, OCD, or PTSD visit diagnosis documented in this encounter Plan of Treatment Upcoming Encounters Date Type Department Care Team (Latest Contact Info) Description 03/03/2025 10:00 AM WELDER APPRENTICE GAS [facility] - [place] [address] [place] [address] Homer Alcala MD #[address] [facility] [address] [place] [address] Ann Graham MD #2 [facility] [address] [place] [address] 03/04/2025 2:00 PM WELDER APPRENTICE GAS [facility] [place] #2 [place] [address] Homer Alcala MD #2 [facility] [address] [place] [address] Carolin Sykes, SAP SPECIALIST, ANALYST MARKET INTELLIGENCE 2 [facility] [address] [place] [address] 03/19/2025 10:15 AM WELDER APPRENTICE GAS Physical Therapy [facility] at [facility] [address] [address] Sujata Winn, SAP SPECIALIST, ANALYST MARKET INTELLIGENCE [address] [place] [address] Michelle Patel, PT [place] Discharge Disposition: Discharged to home or Selfcare 03/21/2025 1:30 PM WELDER APPRENTICE GAS [facility] [place] #2 [place] [address] Ayala Weaver APRN, BROOMMAKING SUPERVISOR #2 [place] [address] 04/29/2025 9:00 AM WELDER APPRENTICE GAS [facility] [place] #2 [place] [address] Ayala Weaver APRN, BROOMMAKING SUPERVISOR #2 [place] [address] 05/09/2025 11:00 AM WELDER APPRENTICE GAS [facility] [place] #2 [place] [address] Saurav Goyal MD #2 [place] [address] documented as of this encounter Goals Goal Patient Goal Type Associated Problems Recent Progress Patient-Stated? Author Depression Behavioral Health On track(2024 4:40 PM CDT) Flora Miller LCSW Note: GOAL: Lisseth will manage depressive symptoms more effectively. Goal Reviewed with: patient today Readiness to change: Ready to change Department associated with goal: [facility] Steps to achieve goal: [...] 19 04/05/2024 04/05/2024 04/05/2024 12:3 5 PM WELDER APPRENTICE GAS COVID - 19 05/19/2024 05/19/2024 05/19/2024 6:18 PM CDT Assessment Noted Time PHQ-9 Depression Total Score: 1 01/12/20 19 5:00 PM WELDER APPRENTICE GAS documented as of this encounter Care Teams Admissions Manager Relationship Specialty Start Date End Date Damaso Vazquez MD PCP - General Family Medicine 05/28/20 08/31/23 Homer [facility]cal[facility] MD [facility]2 [facility] [address] [address] PCP - General Family Medicine 09/01/23 Yuliana Florez, STITCH CLEANER Advanced Practice Nurse 01/24/18 Michel Yanez, SAP SPECIALIST, ANALYST MARKET INTELLIGENCE #2 [place] [address] Nurse Practitioner Advanced Practice Nurse 12/28/21 Laureano Quigley MD #2 [facility] [address] [place] [address] Consulting Physician Urology 02/04/22 Elsa Kenny, SAP SPECIALIST, ANALYST MARKET INTELLIGENCE #2 [facility] [address] [place] [address] Nurse Practitioner Cardiology 07/14/23 09/17/24 Saurav Goyal MD #2 [place] [address] Consulting Physician Pulmonary Disease 07/28/23 Yuni Meneses, [facility] Multifold Operator Advertising Sales Manager 11/27/23 12/04/23 Ayala Weaver, SAP SPECIALIST, BROOMMAKING SUPERVISOR #2 [place] [address] Nurse Practitioner Neurology 12/18/23 documented as of this encounter
--- OUTSIDE RECORDS SUMMARY | 2025-02-22 12:13 | XMS_ITS | Encounter Summary ---
Author Organization [facility] Address [address] [place] [address] Phone Care Team Providers Care Seed Buyer Name Role Phone Yuliana Florez APN Unavailable Unavailab Damaso Chaudhari MD Primary Care Provider [phone] Michel Yanez APRN, CAN CRIMPER Unavailable [phone] Laureano Quigley MD Unavailable [phone] Elsa Kenny APRN, CAN CRIMPER Unavailable + [phone] Saurav Goyal MD Unavailable Homer Alcala MD Primary Care Provider [phone] Yuni Meneses GRAPE CUTTER Unavailable Unavailab Ayala Orozco APRN, WINDER OPERATOR Unavailable + [phone] Reason for Visit * Reason Comments Medication Refill Encounter Details Date Type Department Care Team (Late st Contact Info) Description 02/15/2021 Refill [facility] [address] [place] [address] Damaso Vazquez MD [address] [place] [address] Medication Refill Social History Tobacco Use Types [...] Telephone Encounter - Darline Seth RN - 02/16/2021 1:06 PM CST Medication warnings Per nursing clinical judgement, provider to review and approve the medication(s) order(s) if appropriate. Requested Prescriptions Pending Prescriptions Disp Refills metoprolol Succinate (TOPROL-XL) 50 MG TABLET SR 24 HR [Pharmacy Med Name: METOPROLOL SUCC ER 50MG TAB 50 Tablet] 30 Tablet 3 Sig: TAKE 1 TAB BY MOUTH DAILY. Beta-Blockers Protocol Passed - 02/15/2021 5:31 PM Passed - BP on record in the past year Clinician-entered: BP Readings from Last 3 Encounters: 09/16/20 120/68 09/01/20 120/62 06/30/20 90/60 Patient-entered: No data recorded Passed - Visit with relevant provider in past 12 months or upcoming 90 days Recent Visits Date Type Provider Dept 09/16/20 Office Visit Damaso Vazquez MD [facility] 09/01/20 Office Visit Damaso Vazquez MD [facility] 06/30/20 Office Visit Damaso Vazquez MD [facility] 05/28/20 Office Visit Damaso Vazquez MD [facility] Showing recent visits within past 365 days and meeting all other requirements Future Appointments No visits were found meeting these conditions. Showing future appointments within next 90 days and meeting all other requirements buPROPion (WELLBUTRIN) 300 MG TABLET SR 24 HR XL tablet [Pharmacy Med Name: BUPROPION HCL XL 300 MGTAB 300 Tablet] 30 Tablet 3 Sig: TAKE 1 TAB BY MOUTH EVERY MORNING. Bupropion (6 Month Refill Only) Protocol Passed - 02/15/2021 5:31 PM Passed - Visit with relevant provider in past 6 months or upcoming 90 days Recent Visits Date Type Provider Dept 09/16/20 Office Visit Damaso Vazquez MD [facility] 09/01/20 Office Visit Damaso Vazquez MD [facility] Showing recent visits within past 182 days and meeting all other requirements Future Appointments No visits were found meeting these conditions. Showing future appointments within next 90 days and meeting all other requirements Passed - Has an encounter in the past 6 months with a depression or anxiety visit diagnosis Passed - Patient has established therapy with Bupropion for at least 6 months losartan (COZAAR) 50 MG Tablet [Pharmacy Med Name: LOSARTAN POTASSIUM 50 MG TA 50 Tablet] 30 Tablet3 Sig: TAKE ONE TABLET BY MOUTH DAILY ARB Protocol Passed - 02/15/2021 5:31 PM Passed - Serum potassium on record in past 12 months POTASSIUM Date Value Ref Range Status 06/04/2020 3.8 3.5 - 5.1 mmol/L Final Passed - BP on record in the past year Clinician-entered: BP Readings from Last 3 Encounters: 09/16/20 120/68 09/01/20 120/62 06/30/20 90/60 Patient-entered: No data recorded Passed - Visit with relevant provider in past year or upcoming 90 days Recent Visits Date Type Provider Dept 09/16/20 Office Visit Damaso Vazquez MD [facility] 09/01/20 Office Visit Damaso Vazquez MD [facility] 06/30/20 Office Visit Damaso Vazquez MD [facility] 05/28/20 Office Visit Damaso Vazquez MD [facility] Showing recent visits within past 365 days and meeting all other requirements Future Appointments No visits were found meeting these conditions. Showing future appointments within next 90 days and meeting all other requirements Passed - GFR on record in past 12 months GFR, EST. NONAFRICAN Date Value Ref Range Status 06/04/2020 >60 >=60 Final levothyroxine (SYNTHROID) 100 MCG Tablet [Pharmacy Med Name: LEVOTHYROXINE 100MCG TAB 100 Tablet] 30 Tablet 3 Sig: TAKE 1 TAB BY MOUTH DAILY. Thyroid Hormones Protocol Passed - 02/15/2021 5:31 PM Passed - Visit with relevant provider in past 12 months or upcoming 90 days Recent Visits Date Type Provider Dept 09/16/20 Office Visit Damaso Vazquez MD [facility] 09/01/20 Office Visit Damaso Vazquez MD [facility] 06/30/20 Office Visit Damaso Vazquez MD [facility] 05/28/20 Office Visit Damaso Vazquez MD [facility] Showing recent visits within past 365 days and meeting all other requirements Future Appointments No visits were found meeting these conditions. Showing future appointments within next 90 days and meeting all other requirements Passed - Normal TSH in past 12 months TSH Date Value Ref Range Status 06/04/2020 0.376 0.270 - 4.200 mIU/L Final pantoprazole (PROTONIX) 40 MG Tablet Delayed Response [Pharmacy Med Name: PANTOPRAZOLE SOD DR 40 MGT 40 Tablet] 30 Tablet 3 Sig: TAKE ONE TABLET BY MOUTH DAILY Proton Pump Inhibitors Protocol Passed - 02/15/2021 5:31 PM Passed - Visit with relevant provider in past 12 months or upcoming 90 days Recent Visits Date Type Provider Dept 09/16/20 Office Visit Damaso Vazquez MD [facility] 09/01/20 Office Visit Damaso Vazquez MD [facility] 06/30/20 Office Visit Damaso Vazquez MD [facility] 05/28/20 Office Visit Damaso Vazquez MD [facility] Showing recent visits within past 365 days and meeting all other requirements Future Appointments No visits were found meeting these conditions. Showing future appointments within next 90 days and meeting all other requirements documented in this encounter Plan of Treatment Upcoming Encounters Date Type Department Care Team (Latest Contact Info) Description 03/03/2025 10:00 AM FSR Office Visit [facility] - Orthopedic Surgery - [place] #2 [place] [address] Homer Alcala MD #2 [facility] [address] [place] [address] Ann Graham MD #2 [facility] [address] [place] [address] 03/04/2025 2:00 PM FSR Office Visit [facility] - Cardiology - [place] #2 [place] [address] Homer Alcala MD #[address] [address] Carolin Sykes APRN, CAN CRIMPER 2 [facility] [address] [place] [address] 03/19/2025 10:15 AM FSR Physical [facility] 200 [facility] H[address] [place] [address] Sujata Winn APRN, CAN CRIMPER [address] [place] [address] Michelle Patel, PT [place] Discharge Disposition: Discharged to home or Selfcare 03/21/2025 1:30 PM FSR [facility] [place] #2 [place] [address] Ayala Weaver APRN, WINDER OPERATOR #2 [place] [address] 04/29/2025 9:00 AM FSR Office Visit [facility] - Neurology - [place] #2 [place] [address] Ayala Weaver APRN, WINDER OPERATOR #2 [facility] [place] [address] 05/09/2025 11:00 AM FSR Office Visit [facility] - Pulmonology & Sleep Medicine - [place] #2 [place] [address] Saurav Goyal MD #2 [facility] [place] [address] documented as of this encounter Goals Goal [...] - 04/05/2024 04/05/2024 04/05/2024 12:3 5 PM FSR COVID - 05/19/2024 05/19/2024 05/19/2024 6:18 PM CDT Assessment Noted Time PHQ-9 Depression Total Score: 1 01/12/20 19 5:00 PM FSR documented as of this encounter Care Teams Seed Buyer Relationship Specialty Start Date End Date Damaso Vazquez MD PCP - General Family Medicine 05/28/20 08/31/23 Homer Alcala MD #2 [facility] [address] [place] [address] PCP - General Family Medicine 09/01/23 Yuliana Florez INVASIVE CARDIOLOGIST Advanced Practice Nurse 01/24/18 Michel Yanez, CITY SECRETARY, CAN CRIMPER #2 [place] [address] Nurse Practitioner Advanced Practice Nurse 12/28/21 Laureano Quigley MD #2 [facility] [address] [place] [address] Consulting Physician Urology 02/04/22 Elsa Kenny APRN, CAN CRIMPER #[address] [id number] Nurse Practitioner Cardiology 07/14/23 09/17/24 Saurav Goyal MD #2 [place] [address] Consulting Physician Pulmonary Disease 07/28/23 Yuni Meneses LSW [place] Fishing Hand Lace Roller 11/27/23 12/04/23 Ayala Weaver APRN, WINDER OPERATOR #2 [place] [address] Nurse Practitioner Neurology 12/18/23 documented as of this encounter
--- OUTSIDE RECORDS SUMMARY | 2025-02-22 12:13 | XMS_ITS | Encounter Summary ---
Author Organization [facility] Address [address] [place] [address] Phone Care Team Providers Care Financial Recording Clerk Name Role Phone Yuliana Florez APN Unavailable Unavailab Damaso Chaudhari MD Primary Care Provider [phone] Michel Yanez APRN, TEACHER CITIZENSHIP Unavailable [phone] Laureano Quigley MD Unavailable [phone] Elsa Kenny APRN, TEACHER CITIZENSHIP Unavailable + [phone] Saurav Goyal MD Unavailable Homer Alcala MD Primary Care Provider [phone] Yuni Meneses FLORICULTURE TEACHER Unavailable Unavailab Ayala Orozco APRN, TIN CONTAINER STRAIGHTENER Unavailable + [phone] Reason for Visit * Reason Comments Medication Refill Encounter Details Date Type Department Care Team (Late st Contact Info) Description 10/29/[facility] [address] [place] [address] Homer Alcala MD [address] [facility] [address] [address] Medication Refill Social History Tobacco Use Types [...] 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 No / Unsure 09/29/2020 11:13 AM CDT documented as of this encounter Miscellaneous Notes * Telephone Encounter - Darline Seth RN - 10/30/2020 9:02 AM CDT The original prescription was reordered on 10/29/2020 by Damaso Vazquez MD. * Telephone Encounter - Darline Seth RN - 10/29/2020 3:33 PM CDT Duplicate - already pended to PCP documented in this encounter Plan of Treatment Upcoming Encounters Date Type Department Care Team (Latest Contact Info) Description 03/03/2025 10:00 AM SENSITOMETRIST [facility] Visit [facility] - [facility] - [place] #2 [place] [address] Homer Alcala MD #2 [facility] 205 [place] [address] Ann Graham MD #[address] [address] 03/04/2025 2:00 PM SENSITOMETRIST Office Visit [facility] - Cardiology - [place] #2 [place] [address] Homer Alcala MD #[address] [address] Carolin Sykes APRN, TEACHER CITIZENSHIP 2 [facility] 305 [place] [address] 03/19/2025 10:15 AM SENSITOMETRIST Physical Therapy [facility] at [facility] 200 [facility] [address] [place] [address] Sujata Winn, SHIP'S ENGINEER, TEACHER CITIZENSHIP [address] [place] [address] Michelle Patel, PT [place] Discharge Disposition: Discharged to home or Selfcare 03/21/2025 1:30 PM SENSITOMETRIST [facility] [place] #2 [place] [address] Ayala Weaver, SHIP'S ENGINEER, TIN CONTAINER STRAIGHTENER #2 [place] [address] 04/29/2025 9:00 AM SENSITOMETRIST [facility] - [place] #2 [place] [address] Ayala Weaver APRN, TIN CONTAINER STRAIGHTENER #2 [place] [address] 05/09/2025 11:00 AM SENSITOMETRIST [facility] - [facility] - [place] #2 [place] [address] Saurav Goyal MD #2 [place] [address] documented as of this encounter Goals Goal Patient Goal Type Associated Problems Recent Progress Patient-Stated? Author Depression Behavioral Health On track(2024 4:40 PM CDT) No Flora Yip LCSW Note: GOAL: Lisseth will manage depressive symptoms more effectively. Goal Reviewed with: patient today Readiness to change: Ready to change Department associated with goal: [facility] Steps to achieve goal: [...] track(2024 4:40 PM CDT) No Flora Yip, CONSTRUCTION JOB TITLES Note: GOAL: Lisseth will process feelings of grief and loss related to her son. Goal Reviewed with: patient today Readiness to change: Ready to change Department associated with goal: [facility] Steps to achieve goal: [...] 19 04/05/2024 04/05/2024 04/05/2024 12:3 5 PM SENSITOMETRIST COVID - 05/19/2024 05/19/2024 05/19/2024 6:18 PM CDT Assessment Noted Time PHQ-9 Depression Total Score: 1 01/12/20 19 5:00 PM SENSITOMETRIST documented as of this encounter Care Teams Financial Recording Clerk Relationship Specialty Start Date End Date Damaso Vazquez MD PCP - General Family Medicine 05/28/20 08/31/23 Homer Alcala MD #2 [facility] [address] [place] [address] PCP - General Family Medicine 09/01/23 Yuliana Florez APN Advanced Practice Nurse 01/24/18 Michel Yanez APRN, TEACHER CITIZENSHIP #2 [place] [address] Nurse Practitioner Advanced Practice Nurse 12/28/21 Laureano Quigley MD #2 [facility] [address] [place] [address] Consulting Physician Urology 02/04/22 Elsa Kenny APRN, TEACHER CITIZENSHIP #2 [facility] 305 [place] [address] Nurse Practitioner Cardiology 07/14/23 09/17/24 Saurav Goyal MD #2 [place] [address] Consulting Physician Pulmonary Disease 07/28/23 Yuni Meneses LSW DC Parts Remover Trace Clerk 11/27/23 12/04/23 Ayala Weaver APRN, TIN CONTAINER STRAIGHTENER #2 [place] [address] Nurse Practitioner Neurology 12/18/23 documented as of this encounter
--- OUTSIDE RECORDS SUMMARY | 2025-02-22 12:13 | XMS_ITS | Encounter Summary ---
Author Organization [facility] Address [address] [place] [address] Phone Care Team Providers Care Broth Setter Name Role Phone Yuliana Florez APN Unavailable Unavailab Damaso Chaudhari MD Primary Care Provider [phone] Michel Yanez APRN, DOVETAILER Unavailable [phone] Laureano Quigley MD Unavailable [phone] Elsa Kenny APRN, DOVETAILER Unavailable + [phone] Saurav Goyal MD Unavailable Homer Alcala MD Primary Care Provider [phone] Yuni Meneses STRINGED INSTRUMENT REPAIRER Unavailable Unavailab Ayala Orozco APRN, SOFTWARE CLIENT ARCHITECT Unavailable + [phone] Reason for Visit * Reason Comments Medication Refill Encounter Details Date Type Department Care Team (Late st Contact Info) Description 07/29/2020 Refill [facility] [address] [address]2 [place] [address] Damaso Vazquez MD #1 [place] [address] Medication Refill Social History Tobacco Use Types [...] 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 No / Unsure 07/24/2020 3:09 PM CDT documented as of this encounter Miscellaneous Notes * Telephone Encounter - Veronica Keating RN - 07/29/2020 2:30 PM CDT [place] last fill date 06/29/20 Medication failed the protocol, provider to review and approve the medication order if appropriate. Requested Prescriptions Pending Prescriptions Disp Refills ALPRAZolam (XANAX) 0.5 MG Tablet [Pharmacy Med Name: ALPRAZOLAM 0.5 MG TABS 0.5 Tablet] 60 Tablet Sig: TAKE 1 TABLET BY MOUTH 2 TIMES DAILY NEEDED FOR ANXIETY. [facility] Not Delegated - Psychiatry: Anxiolytics/Hypnotics Failed - 07/29/2020 2:30 PM Failed - This refill cannot be delegated Passed - Valid encounter within last 6 months Past Office Visits Recent Outpatient Visits 4 weeks ago Anxiety [facility] Damaso Romo MD 2 months ago Benign essential HTN [facility] Damaso Vazquez MD 5 months ago Pain in both lower extremities [facility] Felecia Saenz, CENTRAL SUPPLY MANAGER, DOVETAILER 12 months ago Chest pain, unspecified type [facility] Felecia Saenz, CENTRAL SUPPLY MANAGER, DOVETAILER 1 year ago Anxiety [facility] Felecia Saenz, CENTRAL SUPPLY MANAGER, DOVETAILER Upcoming Appointments Future Appointments In 1 week Damaso Vazquez MD [facility] In 3 weeks Flora Yip LCSW [facility], [facility] DRAW BENCH OPERATOR HELPER - Recent and Past Visits Recent Visits Date Type Provider Dept 06/30/20 Office Visit Dam[facility]o Vaz[facility] MD [facility] 05/28/20 Office Visit Damaso Vazquez MD [facility] [place] 02/10/20 Office Visit Felecia Saenz APN, CNP [facility] 08/02/19 Office Visit Felecia Saenz APN, CNP [facility] 06/24/19 Telemedicine Felecia Saenz APN, CNP [facility] Showing recent visits within past 460 days with a meds authorizing provider and meeting all other requirements Future Appointments Date Type Provider Dept 08/11/20 Appointment [facility] MD [facility] Showing future appointments within next 90 days with a meds authorizing provider and meeting all other requirements documented in this encounter Plan of Treatment Upcoming Encounters Date Type Department Care Team (Latest Contact Info) Description 03/03/2025 10:00 AM SUPERVISOR DIE CASTING Office Visit [facility] Orthopedic Surgery - [place] [address] [place] [address] Homer Alcala MD [address] [address] Ann Graham MD #2 [facility] [address] [place] [address] 03/04/2025 2:00 PM SUPERVISOR DIE CASTING [facility] [place] [address]2 [place] [phone] Homer Alcala MD #2 [facility] [address] [place] [address] Carolin Sykes, LEAD QUALITY TECHNICIAN, DOVETAILER 2 [facility] [address] [place] [address] 03/19/2025 10:15 AM SUPERVISOR DIE CASTING Physical Therapy [facility] Rehab at [facility] [address] [facility] [address] [place] [address] Sujata Winn, LEAD QUALITY TECHNICIAN, DOVETAILER [address] [place] [address] Michelle Patel, PT [place] Discharge Disposition: Discharged to home or Selfcare 03/21/2025 1:30 PM SUPERVISOR DIE CASTING [facility] #2 [place] [phone] Ayala Weaver APRN, SOFTWARE CLIENT ARCHITECT #2 [place] [address] 04/29/2025 9:00 AM SUPERVISOR DIE CASTING [facility] [place] [address]2 [place] [address] Ayala Weaver APRN, SOFTWARE CLIENT ARCHITECT #2 [place] [address] 05/09/2025 11:00 AM SUPERVISOR DIE CASTING Office Visit [facility] - Pulmonology & Sleep Medicine [facility] #2 [place] [address] Saurav Goyal MD #2 [place] [address] documented as of this encounter Goals Goal Patient Goal Type Associated Problems Recent Progress Patient-Stated? Author Depression Behavioral Health On track(2024 4:40 PM CDT) Flora Miller LCSW Note: GOAL: Lisseth will manage depressive symptoms more effectively. Goal Reviewed with: patient today Readiness to change: Ready to change Department associated with goal: [facility] Steps to achieve goal: [...] 19 04/05/2024 04/05/2024 04/05/2024 12:3 5 PM SUPERVISOR DIE CASTING COVID - 19 05/19/2024 05/19/2024 05/19/2024 6:18 PM CDT Assessment Noted Time PHQ-9 Depression Total Score: 1 01/12/20 19 5:00 PM SUPERVISOR DIE CASTING documented as of this encounter Care Teams Broth Setter Relationship Specialty Start Date End Date Damaso Vazquez MD PCP - General Family Medicine 05/28/20 08/31/23 Homer Alcala MD [address] [address] PCP - General Family Medicine 09/01/23 Yuliana Florez CENTRAL SUPPLY MANAGER Advanced Practice Nurse 01/24/18 Michel Yanez, LEAD QUALITY TECHNICIAN, DOVETAILER #2 [place] [address] Nurse Practitioner Advanced Practice Nurse 12/28/21 Laureano Quigley MD #2 [facility] [address] [place] [address] Consulting Physician Urology 02/04/22 Elsa Kenny, LEAD QUALITY TECHNICIAN, DOVETAILER #2 [facility] [address] [place] [address] Nurse Practitioner Cardiology 07/14/23 09/17/24 Saurav Goyal MD #2 [place] [address] Consulting Physician Pulmonary Disease 07/28/23 Yuni Meneses, [facility] Shift Manager Patrol Agent 11/27/23 12/04/23 Ayala Weaver, LEAD QUALITY TECHNICIAN, SOFTWARE CLIENT ARCHITECT #2 [place] [address] Nurse Practitioner Neurology 12/18/23 documented as of this encounter
--- OUTSIDE RECORDS SUMMARY | 2025-02-22 12:13 | XMS_ITS | Encounter Summary ---
Author Organization [facility] Address [address] [place] [address] Phone Care Team Providers Care Telegraph Dispatcher Name Role Phone Yuliana Florez APN Unavailable Unavailab Damaso Chaudhari MD Primary Care Provider [phone] Michel Yanez APRN, RETAIL SPECIALIST Unavailable [phone] Laureano Quigley MD Unavailable [phone] Elsa Kenny APRN, RETAIL SPECIALIST Unavailable + [phone] Saurav Goyal MD Unavailable Homer Alcala MD Primary Care Provider [phone] Yuni Meneses STILL OPERATOR BRANDY Unavailable Unavailab Ayala Orozco APRN, KILN DOOR BUILDER Unavailable + [phone] Reason for Visit * Reason Comments Medication Refill Encounter Details Date Type Department Care Team (Late st Contact Info) Description 06/30/2021 [facility]ill [facility] - Family Medicine - [place] [address]2 [place] [address] Damaso Vazquez MD #1 [place] [address] Medication Refill Social History Tobacco Use Types Packs/Day Years Used Date Smoking Tobacco: Former Cigarettes 0.5 30 0 03/13/1988 - 03/13/2018 Smokeless Tobacco: Never Alcohol Use Standard Drinks/Week Comments Not Currently 0 (1 standard drink = 0.6 oz pur e alcohol) seldom PHQ-2 Answer Date Recorded Total Score - Questions 1-9 0 03/0 03/2021 Sexually Active Control Partners Comments Yes Comments No Sex and Gender Information Value Date Recorded Sex Assigned at Not on file Legal Sex Female 8:32 AM CDT Gender Identity Not on file Sexual Orientation Not on file 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 No / Unsure 07/03/2021 11:32 AM CDT documented as of this encounter Miscellaneous Notes * Telephone Encounter - Darline Seth RN - 07/01/2021 9:54 AM CDT Medication failed the protocol, provider to review and approve the medication order if appropriate. Requested Prescriptions Pending Prescriptions Disp Refills ondansetron (ZOFRAN) 4 MG Tablet [Pharmacy Med Name: ONDANSETRON HYDROCHLORIDE 4MG TABLET] 10 Tablet 0 Sig: TAKE ONE (1) TABLET BY MOUTH EVERY 8 HOURS NEEDED FOR NAUSEA - 1ST LINE. Not Delegated - 5-HT3 Antagonists Protocol Failed - 06/30/2021 4:56 PM Failed - This refill cannot be delegated Passed - Visit with relevant provider in past 12 months or upcoming 90 days Recent Visits Date Type Provider Dept 06/11/21 Office Visit Damaso Vazquez MD [facility] 05/04/21 Office Visit [facility] 09/16/20 [facility] [place] 09/[facility]/20 Office Visit Damaso Vazquez MD [facility] Showing recent visits within past 365 days and meeting all other requirements Future Appointments No visits were found meeting these conditions. Showing future appointments within next 90 days and meeting all other requirements documented in this encounter Plan of Treatment Upcoming Encounters Date Type Department Care Team (Latest Contact Info) Description 03/03/2025 10:00 AM PLANE RUNNER Office Visit [facility] Medical [facility] - Orthopedic Surgery - [place] #2 [place] [address] Homer Alcala MD #[address] [address] Ann Graham MD #[address] [address] 03/04/2025 2:[address] RUNNER Office Visit [facility] Cardiology - [place] #2 [place] [address] Homer Alcala MD #[address] [address] Carolin Sykes APRN, RETAIL SPECIALIST [address] [address] 03/19/2025 10:[address] RUNNER Physical Therapy [facility] Rehab at [facility] [address] [facility] [address] [place] [address] Sujata Winn, CLIN ASST, RETAIL SPECIALIST [address] [place] [address] Michelle Patel, PT [place] Discharge Disposition: Discharged to home or Selfcare 03/21/2025 1:[address] Office Visit [facility] Neurology - [place] #2 [place] [address] Ayala Weaver, CLIN ASST, KILN DOOR BUILDER #2 [place] [address] 04/29/2025 9:[address]NER Office Visit [facility] Neurology [facility] #2 [place] [address] Ayala Weaver, CLIN ASST, KILN DOOR BUILDER #2 [facility] [place] [address] 05/09/2025 11:[address]NER Office Visit [facility] Pulmonology & Sleep Medicine - [place] #2 [place] [address] Saurav Goyal MD #2 [place] [address] documented as of this encounter Goals Goal Patient Goal Type Associated Problems Recent Progress Patient-Stated? Author Depression Behavioral Health On track(2024 4:40 PM CDT) Flora Miller, SOUND INSTALLATION WORKER Note: GOAL: Lisseth will manage depressive symptoms [...] PM CDT) Flora Miller LCSW Note: GOAL: Lisseht will process feelings of grief and loss [...] 19 04/05/2024 04/05/2024 04/05/2024 12:3 [address] RUNNER COVID - 19 05/19/2024 05/19/2024 05/19/2024 6:18 PM CDT Assessment Noted Time PHQ-9 Depression Total Score: 1 01/12/20 19 5:[address] RUNNER documented as of this encounter Care Teams Telegraph Dispatcher Relationship Specialty Start Date End Date Damaso Vazquez MD PCP - General Family Medicine 05/28/20 08/31/23 Homer Alcala MD #[address] [place] [address] [address] PCP - General Family Medicine 09/01/23 Yuliana Florez MARINE BIOLOGIST Advanced Practice Nurse 01/24/18 Michel Yanez, CLIN ASST, RETAIL SPECIALIST #2 [place] [address] Nurse Practitioner Advanced Practice Nurse 12/28/21 Laureano Quigley MD #2 [place], [facility] [address] [place] [address] Consulting Physician Urology 02/04/22 Elsa Kenny APRN, RETAIL SPECIALIST #2 [facility] [address] [place] [address] Nurse Practitioner Cardiology 07/14/23 09/17/24 Saurav Goyal MD #2 [place] [address] Consulting Physician Pulmonary Disease 07/28/23 Yuni Meneses, [facility] Pan Cleaner Braze Operator 11/27/23 12/04/23 Ayala Weaver APRN, KILN DOOR BUILDER #2 [place] [address] Nurse Practitioner Neurology 12/18/23 documented as of this encounter
--- OUTSIDE RECORDS SUMMARY | 2025-02-22 12:13 | XMS_ITS | Encounter Summary ---
Author Organization [facility] Address [address] [place] [address] Phone Care Team Providers Care Aircraft Painter Apprentice Name Role Phone Yuliana Florez APN Unavailable Unavailab Damaso Chaudhari MD Primary Care Provider Michel Yanez APRN, COMPANY PILOT Unavailable [phone] Laureano Quigley MD Unavailable [phone] Elsa Kenny APRN, COMPANY PILOT Unavailable + [phone] Saurav Goyal MD Unavailable Homer Alcala MD Primary Care Provider [phone] Yuni Meneses TERMINAL SUPERINTENDENT Unavailable Unavailab Ayala Orozco APRN, MANUGRAPHER Unavailable + [phone] Reason for Visit * Reason Comments Medication Refill Encounter Details Date Type Department Care Team (Late st Contact Info) Description 03/22/2021 Refill [facility] - [facility] #2 [place] [address] Damaso Vazquez MD #1 [place] [address] Medication Refill Social History Tobacco Use Types [...] 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 Requested Prescriptions Pending Prescriptions Disp Refills FLUoxetine (PROzac) 20 MG Capsule [Pharmacy Med Name: FLUOXETINE HCL 20 MG CAP 20 Capsule] 60 Capsule 1 Sig: TAKE 2 CAPSULES BY MOUTH DAILY. SSRI (6 Month Refill Only) Protocol Failed - 03/22/2021 11:00 AM Failed - Visit with relevant provider in past 6 months or upcoming 90 days Recent Visits No visits were found meeting these conditions. Showing recent visits within past 182 days and meeting all other requirements Future Appointments No visits were found meeting these conditions. Showing future appointments within next 90 days and meeting all other requirements Failed - Has an encounter in the past 6 months with a depression, anxiety, adjustment disorder, OCD, or PTSD visit diagnosis Passed - Patient has established therapy with SSRI for at least 6 months O PLANT OPERATOR documented in this encounter Plan of Treatment Upcoming Encounters Date Type Department Care Team (Latest Contact Info) Description 03/03/2025 10:00 AM HYDRO PLANT OPERATOR [facility] Visit [facility] - Orthopedic Surgery - [place] #2 [place] [address] Homer Alcala MD #2 [facility] [address] [place] [address] Ann Graham MD #[address] [address] 03/04/2025 2:00 PM HYDRO PLANT OPERATOR [facility] [place] #2 [place] [address] Homer Alcala MD #[address] [address] Carolin Sykes, MARKET RESEARCH INTERVIEWER, COMPANY PILOT 2 [facility] [address] [place] [address] 03/19/2025 10:15 AM HYDRO PLANT OPERATOR [facility] [address] [phone] Sujata Winn, MARKET RESEARCH INTERVIEWER, COMPANY PILOT [address] [place] [address] Michelle Patel, PT [place] Discharge Disposition: Discharged to home or Selfcare 03/21/2025 1:30 PM HYDRO PLANT OPERATOR [facility] [place] #2 [place] [address] Ayala Weaver, MARKET RESEARCH INTERVIEWER, MANUGRAPHER #2 [place] [address] 04/29/2025 9:00 AM HYDRO PLANT OPERATOR Office Visit [facility] - Neurology - [place] #2 [place] [address] Ayala Weaver APRN, MANUGRAPHER #2 [place] [address] 05/09/2025 11:00 AM HYDRO PLANT OPERATOR Office Visit [facility] - Pulmonology & Sleep Medicine - [place] #2 [place] [address] Saurav Goyal MD #2 [place] [address] documented as of this encounter Goals Goal Patient Goal Type Associated Problems Recent Progress Patient-Stated? Author Depression Behavioral Health On track(2024 4:40 PM CDT) No Flora Yip LCSW Note: GOAL: Lisseth will manage depressive symptoms more effectively. Goal Reviewed with: patient today Readiness to change: Ready to change Department associated with goal: [facility] Steps to [...] Ready to change Department associated with goal: [facility] Steps to [...] - 04/05/2024 04/05/2024 04/05/2024 12:3 5 PM HYDRO PLANT OPERATOR COVID - 05/19/2024 05/19/2024 05/19/2024 6:18 PM CDT Assessment Noted Time PHQ-9 Depression Total Score: 1 01/12/20 19 5:00 PM HYDRO PLANT OPERATOR documented as of this encounter Care Teams Aircraft Painter Apprentice Relationship Specialty Start Date End Date Damaso Vazquez MD PCP - General Family Medicine 05/28/20 08/31/23 Homer Alcala MD #[address] [address] PCP - General Family Medicine 09/01/23 Yuliana Florez APN Advanced Practice Nurse 01/24/18 Michel Yanez APRN, COMPANY PILOT #2 [place] [address] Nurse Practitioner Advanced Practice Nurse 12/28/21 Laureano Quigley MD #2 [facility] [address] [place] [address] Consulting Physician Urology 02/04/22 Elsa Kenny APRN, COMPANY PILOT #2 [place] [facility] [address] [place] [address] Nurse Practitioner Cardiology 07/14/23 09/17/24 Saurav Goyal MD #2 [place] [address] Consulting Physician Pulmonary Disease 07/28/23 Yuni Meneses, [facility] Research Electrician Subject Scientific Research 11/27/23 12/04/23 Ayala Weaver, MARKET RESEARCH INTERVIEWER, MANUGRAPHER #2 [place] [address] Nurse Practitioner Neurology 12/18/23 documented as of this encounter
--- OUTSIDE RECORDS SUMMARY | 2025-02-22 12:13 | XMS_ITS | Encounter Summary ---
Author Organization [facility] Address [address] [place] [address] Phone Care Team Providers Care Accident Investigator Name Role Phone Yuliana Florez APN Unavailable Unavailab Damaso Chaudhari MD Primary Care Provider [phone] Michel Yanez APRN, AUTHOR'S AGENT Unavailable [phone] Laureano Quigley MD Unavailable [phone] Elsa Kenny APRN, AUTHOR'S AGENT Unavailable + [phone] Saurav Goyal MD Unavailable Homer Alcala MD Primary Care Provider [phone] Yuni Meneses MEAT MARKET MANAGER Unavailable Unavailab Ayala Orozco APRN, MANUFACTURING FINANCE MANAGER Unavailable + [phone] Reason for Visit * Reason Comments Medication Refill Encounter Details Date Type Department Care Team (Late st Contact Info) Description 05/02/2022 Refill [facility] - Family Medicine [facility] #2 [place] [phone] Liset Foote, DOMENICA #2 [place] [address] Medication Refill Social History Tobacco Use Types Packs/Day Years Used Date Smoking Tobacco: Some Days Cigarettes 0 Last attempted to quit: 03/13/1988 Smokeless Tobacco: Never Alcohol Use Standard Drinks/Week Comments Not Currently 0 (1 standard drink = 0.6 oz pur e alcohol) seldom PHQ-2 Answer Date Recorded Total Score - Questions 1-9 0 03/2021 Education Answer Date Recorded What is the [...] 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 No / Unsure 04/03/2022 3:44 PM SURVEILLANCE OFFICER documented as of this encounter Miscellaneous Notes * Telephone Encounter - Winifred Contreras RN - 05/02/2022 11:51 AM SURVEILLANCE OFFICER Medication failed the protocol, provider to review and approve the medication order if appropriate. Requested Prescriptions Pending Prescriptions Disp Refills levothyroxine (SYNTHROID) 100 MCG Tablet [Pharmacy Med Name: LEVOTHYROXINE SODIUM 100MCG TABLET] 90Tablet 0 Sig: TAKE 1 TABLET BY MOUTH DAILY Thyroid Hormones Protocol Failed - 05/02/2022 7:07 AM Failed - Normal TSH in past 12 months TSH Date Value Ref Range Status 06/04/2020 0.376 0.270 - 4.200 mIU/L Final Passed - Visit with relevant provider in past 12 months or upcoming 90 days Recent Visits Date Type Provider Dept 04/04/22 Office Visit Damaso Vazquez MD [facility] 03/21/22 Office Visit Damaso Vazquez MD [facility] 06/11/21 Office Visit Damaso Vazquez MD [facility] 05/04/21 Office Visit Damaso Vazquez MD [facility] Showing recent visits within past 365 days and meeting all other requirements Future Appointments No visits were found meeting these conditions. Showing future appointments within next 90 days and meeting all other requirements EILLANCE OFFICER documented in this encounter Plan of Treatment Upcoming Encounters Date Type Department Care Team (Latest Contact Info) Description 03/03/2025 10:00 AM SURVEILLANCE OFFICER Office Visit [facility] - Orthopedic Surgery - [place] #2 [place] [address] Homer Alcala MD #[address] [address] Ann Graham MD #[address] [address] 03/04/2025 2:00 PM SURVEILLANCE OFFICER Office Visit [facility] Cardiology - [place] #2 [place] [address] Homer Alcala MD #2 [facility] [address] [place] [address] Carolin Sykes APRN, AUTHOR'S AGENT 2 [facility] [address] [place] [address] 03/19/2025 10:15 AM SURVEILLANCE OFFICER Physical Therapy [facility] [address] [address] Sujata Winn, CANDLEMAKING LABORER, AUTHOR'S AGENT [address] [place] [address] Michelle Patel, PT [place] Discharge Disposition: Discharged to home or Selfcare 03/21/2025 1:30 PM SURVEILLANCE OFFICER Office Visit [facility] Neurology [facility] #2 [place] [address] Ayala Weaver CANDLEMAKING LABORER, MANUFACTURING FINANCE MANAGER #2 [place] [address] 04/29/2025 9:00 AM SURVEILLANCE OFFICER Office Visit [facility] Neurology [facility] #2 [place] [address] Ayala Weaver CANDLEMAKING LABORER, MANUFACTURING FINANCE MANAGER #2 [place] [address] 05/09/2025 11:00 AM SURVEILLANCE OFFICER Office Visit [facility] Pulmonology & Sleep Medicine [facility] #2 [place] [address] Saurav Goyal MD #2 [place] [address] documented as of this encounter Goals Goal Patient Goal Type Associated Problems Recent Progress Patient-Stated? Author Depression Behavioral Health On track(2024 4:40 PM CDT) Flora Miller, SKY CAP Note: GOAL: Lisseth will manage depressive symptoms more effectively. Goal Reviewed with: patient today Readiness to change: Ready to change Department associated with goal: [facility] Steps to achieve goal: [...] Flora Miller, ROBERTO Note: GOAL: Lisseth will process feelings of grief and loss related to her son. Goal Reviewed with: patient today Readiness to change: Ready to change Department associated with goal: [facility] Steps to achieve goal: [...] 19 04/05/2024 04/05/2024 04/05/2024 12:3 5 PM SURVEILLANCE OFFICER COVID - 19 05/19/2024 05/19/2024 05/19/2024 6:18 PM CDT Assessment Noted Time PHQ-9 Depression Total Score: 1 01/12/20 19 5:00 PM SURVEILLANCE OFFICER documented as of this encounter Care Teams Accident Investigator Relationship Specialty Start Date End Date Damaso Vazquez MD PCP - General Family Medicine 05/28/20 08/31/23 Homer Alcala MD #[address] [address] PCP - General Family Medicine 09/01/23 Yuliana Florez APN Advanced Practice Nurse 01/24/18 Michel Yanez, CANDLEMAKING LABORER, AUTHOR'S AGENT #2 [place] [address] Nurse Practitioner Advanced Practice Nurse 12/28/21 Laureano Quigley MD #2 [facility] [address] [place] [address] Consulting Physician Urology 02/04/22 Elsa Kenny, CANDLEMAKING LABORER, AUTHOR'S AGENT #2 [facility] [address] [place] [address] Nurse Practitioner Cardiology 07/14/23 09/17/24 Saurav Goyal MD #2 [place] [address] Consulting Physician Pulmonary Disease 07/28/23 Yuni Meneses, MEAT MARKET MANAGER[employer] FOR [employer] Billet Heater Coil Winding Supervisor 11/27/23 12/04/23 Ayala Weaver, CANDLEMAKING LABORER, MANUFACTURING FINANCE MANAGER #2 [place] [address] Nurse Practitioner Neurology 12/18/23 documented as of this encounter
--- OUTSIDE RECORDS SUMMARY | 2025-02-22 12:13 | XMS_ITS | Encounter Summary ---
Author Organization [facility] Address [address] [place] [address] Phone Care Team Providers Care Grievance And Appeals Coordinator Name Role Phone Yuliana Florez APN Unavailable Unavailab Damaso Chaudhari MD Primary Care Provider [phone] Michel Yanez APRN, ANIMAL DAMAGE CONTROL AGENT Unavailable [phone] Laureano Quigley MD Unavailable [phone] Elsa Kenny APRN, ANIMAL DAMAGE CONTROL AGENT Unavailable + [phone] Saurav Goyal MD Unavailable Homer Alcala MD Primary Care Provider [phone] Yuni Meneses DRY STARCH OPERATOR Unavailable Unavailab Ayala Orozco APRN, EDITOR SOUND Unavailable + [phone] Reason for Visit * Reason Comments Medication Refill Encounter Details Date Type Department Care Team (Late st Contact Info) Description 10/21/2020 [facility] [place] [address] [place] [address] Felecia Saenz, GABRIEL, ANIMAL DAMAGE CONTROL AGENT [address] [place] [address] Medication Refill Social History Tobacco Use Types [...] 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 No / Unsure 09/29/2020 11:13 AM CDT documented as of this encounter Miscellaneous Notes * Telephone Encounter - Veronica Keating RN - 10/21/2020 8:33 AM CDT Medication failed the protocol, provider to review and approve the medication order if appropriate. Requested Prescriptions Pending Prescriptions Disp Refills buPROPion (WELLBUTRIN) 300 MG TABLET SR 24 HR XL tablet [Pharmacy Med Name: BUPROPION HCL XL 300 MGTAB 300 Tablet] 30 Tablet 3 Sig: TAKE 1 TAB BY MOUTH EVERY MORNING. Bupropion (6 Month Refill Only) Protocol Failed - 10/21/2020 8:33 AM Failed - Visit with relevant provider in past 6 months or upcoming 90 days Recent Visits Date Type Provider Dept 09/16/20 Office Visit Damaso Vazquez MD [facility] 09/01/20 Office Visit Damaso Vazquez MD [facility] 06/30/20 Office Visit Damaso Vazquez MD [facility] 05/28/20 Office Visit [facility] Showing recent visits within past 182 [...] BY MOUTH DAILY ARB Protocol Passed - 10/21/2020 8:33 AM Passed - Serum potassium on record in [...] [place] 02/10/20 Office Visit Felecia Saenz APN, ANIMAL DAMAGE CONTROL AGENT [facility] Showing recent visits within past 365 days and meeting all other requirements Future Appointments No visits were found meeting these conditions. Showing future appointments within next 90 days and meeting all other requirements Passed - GFR on record in past 12 months GFR, EST. NONAFRICAN Date Value Ref Range Status 06/04/2020 >60 >=60 Final documented in this encounter Plan of Treatment Upcoming Encounters Date Type Department Care Team (Latest Contact Info) Description 03/03/2025 10:00 AM INSPECTOR TECHNICIAN [facility] - [facility] - [place] #2 [place] [address] Homer Alcala MD #[address] [address] Ann Graham MD #[address] [address] 03/04/2025 2:00 PM INSPECTOR TECHNICIAN Office [facility] - [facility] - [place] #2 [place] [address] Homer Alcala MD #[address] [address] Carolin Sykes APRN, ANIMAL DAMAGE CONTROL AGENT [address] [address] 03/19/2025 10:15 AM INSPECTOR TECHNICIAN [facility] [address] [address] Sujata Winn, MANAGER ACTUARIAL, ANIMAL DAMAGE CONTROL AGENT [address] [place] [address] Michelle Patel, PT [place] Discharge Disposition: Discharged to home or Selfcare 03/21/2025 1:30 PM INSPECTOR TECHNICIAN [facility] [place] #2 [place] [address] Ayala Weaver, MANAGER ACTUARIAL, EDITOR SOUND #2 [place] [address] 04/29/2025 9:00 AM INSPECTOR TECHNICIAN [facility] [place] #2 [place] [address] Ayala Weaver APRN, EDITOR SOUND #2 [place] [address] 05/09/2025 11:00 AM INSPECTOR TECHNICIAN Office Visit [facility] - Pulmonology & Sleep Medicine - [place] #2 [place] [address] Saurav Goyal MD #2 [place] [address] documented as of this encounter Goals Goal Patient Goal Type Associated Problems Recent Progress Patient-Stated? Author Depression Behavioral Health On track(2024 4:40 PM CDT) No Flora Yip LCSW Note: GOAL: Lisseth will manage depressive symptoms more effectively. Goal Reviewed with: patient today Readiness to change: Ready to change Department associated with goal: [facility] Steps to achieve goal: [...] change Department associated with goal: [facility] Steps to achieve goal: [...] - 04/05/2024 04/05/2024 04/05/2024 12:3 5 PM INSPECTOR TECHNICIAN COVID - 05/19/2024 05/19/2024 05/19/2024 6:18 PM CDT Assessment Noted Time PHQ-9 Depression Total Score: 1 01/12/20 19 5:00 PM INSPECTOR TECHNICIAN documented as of this encounter Care Teams Grievance And Appeals Coordinator Relationship Specialty Start Date End Date Damaso Vazquez MD PCP - General Family Medicine 05/28/20 08/31/23 Homer Alcala MD #2 [facility] [address] [place] [address] PCP - General Family Medicine 09/01/23 Yuliana Florez TIRE SERVICE SUPERVISOR Advanced Practice Nurse 01/24/18 Michel Yanez APRN, ANIMAL DAMAGE CONTROL AGENT #2 [place] [address] Nurse Practitioner Advanced Practice Nurse 12/28/21 Laureano Quigley MD #2 [facility] [address] [place] [address] Consulting Physician Urology 02/04/22 Elsa Kenny APRN, ANIMAL DAMAGE CONTROL AGENT #2 [facility] YANELIMiller [facility] [address] [place] [address] Nurse Practitioner Cardiology 07/14/23 09/17/24 Saurav Goyal MD #2 [place] [address] Consulting Physician Pulmonary Disease 07/28/23 Yuni Meneses, DRY STARCH OPERATOR [place] Neonatal Icu Coordinator Staffing Clerk 11/27/23 12/04/23 Ayala Weaver APRN, EDITOR SOUND #2 [place] [address] Nurse Practitioner Neurology 12/18/23 documented as of this encounter
--- OUTSIDE RECORDS SUMMARY | 2025-02-22 12:13 | XMS_ITS | Encounter Summary ---
Author Organization [facility] Address [address] [place] [address] Phone Care Team Providers Care Conventional Underwriter Name Role Phone Yuliana Florez APN Unavailable Unavailab Damaso Chaudhari MD Primary Care Provider [phone] Michel Yanez APRN, TEAM ASSISTANT Unavailable [phone] Laureano Quigley MD Unavailable [phone] Elsa Kenny APRN, TEAM ASSISTANT Unavailable + [phone] Saurav Goyal MD Unavailable Homer Alcala MD Primary Care Provider [phone] Yuni Meneses BLASTING CONTRACT MINER Unavailable Unavailab Ayala Orozco APRN, WORKCELL OPERATOR Unavailable + [phone] Reason for Visit * Reason Comments Medication Refill Encounter Details Date Type Department Care Team (Late st Contact Info) Description 02/15/2021 Refill [facility] - Primary Care - [place] [address] [place] [address] Harriett Ricks APRN, STEPHANIE [address] [place] [address] Medication Refill Social History Tobacco Use Types [...] 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 Requested Prescriptions Pending Prescriptions Disp Refills GNP Aspirin 81 MG Tablet Delayed Response [Pharmacy Med Name: GNP ASPIRIN 81 MG TBEC 81 Tablet] 30 Tablet 3 Sig: TAKE 1 TAB BY MOUTH DAILY. Platelet Inhibitors Protocol Failed - 02/16/2021 9:08 AM Failed - Visit with relevant provider [...] and meeting all other requirements Passed - CBC on record in the past year WBC Date Value Ref Range Status 06/04/2020 7.12 4.00 - 12.00 10(3)/mcL Final WBC ESTERASE Date Value Ref Range Status 11/03/2018 Negative Negative Final RBC Date Value Ref Range Status 06/04/2020 4.62 3.80 - 5.30 10(6)/mcL Final HEMATOCRIT (HCT) Date Value Ref Range Status 06/04/2020 40.6 36.0 - 47.0 % Final HEMOGLOBIN (HGB) Date Value Ref Range Status 06/04/2020 13.2 12.0 - 15.8 g/dL Final MCV Date Value Ref Range Status 06/04/2020 87.9 82.0 - 96.0 fL Final MCH Date Value Ref Range Status 06/04/2020 28.6 26.0 - 34.0 pg Final MCHC Date Value Ref Range Status 06/04/2020 32.5 31.0 - 36.0 g/dL Final Y FARM WORKER * Telephone Encounter - Shirley Fuchs RN - 02/16/2021 9:08 AM DAIRY FARM WORKER Routing to [facility]. Y FARM WORKER documented in this encounter Plan of Treatment Upcoming Encounters Date Type Department Care Team (Latest Contact Info) Description 03/03/2025 10:00 AM DAIRY FARM WORKER Office Visit [facility] Medical [facility] - Orthopedic Surgery - [place] #2 [place] [address] Homer Alcala MD #2 [facility] [address] [place] [address] Ann Graham MD #2 [facility] [address] [place] [address] 03/04/2025 2:00 PM DAIRY FARM WORKER Office Visit [facility] - Cardiology - [place] #2 [place] [address] Homer Alcala MD #2 [facility] [address] [place] [address] Carolin Sykes, PORTAL ADMINISTRATOR, TEAM ASSISTANT 2 [facility] [address] [place] [address] 03/19/2025 10:15 AM DAIRY FARM WORKER Physical Therapy [facility] 200 [facility], [facility] [address] [place] [address] Sujata Winn, PORTAL ADMINISTRATOR, TEAM ASSISTANT [address] [place] [address] Michelle Patel, PT [place] Discharge Disposition: Discharged to home or Selfcare 03/21/2025 1:30 PM DAIRY FARM WORKER [facility] - [place] #2 [place] [address] Ayala Weaver APRN, WORKCELL OPERATOR #2 [place] [address] 04/29/2025 9:00 AM DAIRY FARM WORKER Office [facility] - Neurology - [place] #2 [place] [address] Ayala Weaver APRN, WORKCELL OPERATOR #2 [place] [address] 05/09/2025 11:00 AM DAIRY FARM WORKER Office Visit [facility] - Pulmonology & Sleep Medicine - [place] #[address] [place] [address] Saurav Goyal MD #2 [place] [address] documented as of this encounter Goals Goal Patient Goal Type Associated Problems Recent Progress Patient-Stated? Author Depression Behavioral Health On track(2024 4:40 PM CDT) No Flora Yip LCSW Note: GOAL: Lisseth will manage depressive symptoms more effectively. Goal Reviewed with: patient today Readiness to change: Ready to change Department associated with goal: [facility] Steps to [...] to change Department associated with goal: [facility] Steps to [...] 19 04/05/2024 04/05/2024 04/05/2024 12:3 5 PM DAIRY FARM WORKER COVID - 19 05/19/2024 05/19/2024 05/19/2024 6:18 PM CDT Assessment Noted Time PHQ-9 Depression Total Score: 1 01/12/20 19 5:00 PM DAIRY FARM WORKER documented as of this encounter Care Teams Conventional Underwriter Relationship Specialty Start Date End Date Damaso Vazquez MD PCP - General Family Medicine 05/28/20 08/31/23 Homer Alcala MD #2 [facility] [address] [place] [address] PCP - General Family Medicine 09/01/23 Yuliana Florez, STERILE PROCESS COORDINATOR Advanced Practice Nurse 01/24/18 Michel Yanez PORTAL ADMINISTRATOR, TEAM ASSISTANT #2 [place] [address] Nurse Practitioner Advanced Practice Nurse 12/28/21 Laureano Quigley MD #2 [facility] [address] [place] [address] Consulting Physician Urology 02/04/22 Elsa Kenny, PORTAL ADMINISTRATOR, TEAM ASSISTANT #2 [facility] [address] [place] [address] Nurse Practitioner Cardiology 07/14/23 09/17/24 Saurav Goyal MD #2 [place] [address] Consulting Physician Pulmonary Disease 07/28/23 Yuni Meneses, BLASTING CONTRACT MINER [place] Metal Fabricator Apprentice Oxygen System Tester 11/27/23 12/04/23 Ayala Weaver, PORTAL ADMINISTRATOR, WORKCELL OPERATOR #[address] [place] [address] Nurse Practitioner Neurology 12/18/23 documented as of this encounter
--- OUTSIDE RECORDS SUMMARY | 2025-02-22 12:13 | XMS_ITS | Encounter Summary ---
Author Organization [facility] Address [address] [place] [address] Phone Care Team Providers Care Sustainability Communicator Name Role Phone Yuliana Florez APN Unavailable Unavailab Damaso Chaudhari MD Primary Care Provider [phone] Michel Yanez APRN, RAWHIDE BONE ROLLER Unavailable [phone] Laureano Quigley MD Unavailable [phone] Elsa Kenny APRN, RAWHIDE BONE ROLLER Unavailable + [phone] Saurav Goyal MD Unavailable Homer Alcala MD Primary Care Provider [phone] Yuni Meneses SALES ORDER SPECIALIST Unavailable Unavailab Ayala Orozco APRN, FOOD MIXER Unavailable + [phone] Reason for Visit * Reason Comments Medication Refill Encounter Details Date Type Department Care Team (Late st Contact Info) Description 06/26/2020 Refill [facility] [address] [place] [address] Damaso Vazquez MD [address] [place] [address] Medication Refill Social History Tobacco Use Types [...] 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 No / Unsure 06/23/2020 3:00 PM CDT documented as of this encounter Miscellaneous Notes * Telephone Encounter - Darline Seth RN - 06/26/2020 1:35 PM CDT [place] 05/28/20 Medication failed the protocol, provider to review and approve the medication order if appropriate. Requested Prescriptions Pending Prescriptions Disp Refills ALPRAZolam (XANAX) 0.5 MG Tablet [Pharmacy Med Name: ALPRAZOLAM 0.5 MG TABS 0.5 Tablet] 60 Tablet 0 Sig: TAKE 1 TABLET BY MOUTH 2 TIMES DAILY NEEDED FOR ANXIETY. [facility]finch Not Delegated - Psychiatry: Anxiolytics/Hypnotics Failed - 06/26/2020 1:35 PM Failed - This refill cannot be delegated Passed - Valid encounter within last 6 months Past Office Visits Recent Outpatient Visits 4 weeks ago Benign essential HTN [facility] - Damaso Romo MD 4 months ago Pain in both lower extremities [facility] - [facility] Felecia Saenz, TRANSPORTATION MUSEUM HELPER, RAWHIDE BONE ROLLER 10 months ago Chest pain, unspecified type [facility] - Felecia Gama, TRANSPORTATION MUSEUM HELPER, RAWHIDE BONE ROLLER 1 year ago Anxiety [facility] - NOONANFelecia Stuart, TRANSPORTATION MUSEUM HELPER, RAWHIDE BONE ROLLER 1 year ago Encounter for vaccination [facility] - Felecia Gama, TRANSPORTATION MUSEUM HELPER, RAWHIDE BONE ROLLER Upcoming Appointments Future Appointments In 4 days Damaso Vazquez MD [facility] In 5 days Michelle Patel [facility] In 1 week Flora Yip [facility] ELECTRICAL TRANSMISSION ENGINEER - Recent and Past Visits Recent Visits Date Type Provider Dept 05/28/20 Office Visit [facility]20 [facility] Visit [facility] Saenz APN, C[facility]enz APN, C[facility] 06/24/19 Telemedicine Felecia Saenz APN, CNP [facility] Showing recent visits within past 460 days with a meds authorizing provider and meeting all other requirements Future Appointments Date Type Provider Dept 06/30/20 Appointment Damaso Vazquez MD [facility] Showing future appointments within next 90 days with a meds authorizing provider and meeting all other requirements documented in this encounter Plan of Treatment Upcoming Encounters Date Type Department Care Team (Latest Contact Info) Description 03/03/2025 10:00 AM CISCO CERTIFIED NETWORK ASSOCIATE Office Visit [facility] Orthopedic Surgery - [place] #2 [place] [address] Homer Alcala MD #[address] [address] Ann Graham MD #2 [facility] [address] [place] [address] 03/04/2025 2:00 PM CISCO CERTIFIED NETWORK ASSOCIATE Office Visit [facility] - Cardiology [facility] #2 [place] [address] Homer Alcala MD #2 [facility] [address] [place] [address] Carolin Sykes, DIRECTOR OF STUDENT FINANCIAL AID, RAWHIDE BONE ROLLER 2 [facility] [address] [place] [address] 03/19/2025 10:15 AM CISCO CERTIFIED NETWORK ASSOCIATE Physical Therapy [facility] 200 [facility], [facility] H[address] [place] [address] Sujata Winn, DIRECTOR OF STUDENT FINANCIAL AID, RAWHIDE BONE ROLLER [address] [place] [address] Michelle Patel, PT [place] Discharge Disposition: Discharged to home or Selfcare 03/21/2025 1:30 PM CISCO CERTIFIED NETWORK ASSOCIATE [facility] #2 [place] [address] Ayala Weaver APRN, FOOD MIXER #2 [place] [address] 04/29/2025 9:00 AM CISCO CERTIFIED NETWORK ASSOCIATE [facility] #2 [place] [address] Ayala Weaver APRN, FOOD MIXER #2 [place] [address] 05/09/2025 11:00 AM CISCO CERTIFIED NETWORK ASSOCIATE Office [facility] - Pulmonology & Sleep Medicine [facility] #2 [place] [address] Saurav Goyal MD #2 [place] [address] documented as of this encounter Goals Goal Patient Goal Type Associated Problems Recent Progress Patient-Stated? Author Depression Behavioral Health On track(2024 4:40 PM CDT) No Flora Yip, IT CONSULTING MANAGER Note: GOAL: Lisseth will manage depressive symptoms more effectively. Goal Reviewed with: patient today Readiness to change: Ready to change Department associated with goal: [facility] Steps to achieve [...] 19 04/05/2024 04/05/2024 04/05/2024 12:3 5 PM CISCO CERTIFIED NETWORK ASSOCIATE COVID - 19 05/19/2024 05/19/2024 05/19/2024 6:18 PM CDT Assessment Noted Time PHQ-9 Depression Total Score: 1 01/12/20 19 5:00 PM CISCO CERTIFIED NETWORK ASSOCIATE documented as of this encounter Care Teams Sustainability Communicator Relationship Specialty Start Date End Date Damaso Vazquez MD PCP - General Family Medicine 05/28/20 08/31/23 Homer Alcala MD #2 [facility] [address] [place] [address] PCP - General Family Medicine 09/01/23 Yuliana Florez, TRANSPORTATION MUSEUM HELPER Advanced Practice Nurse 01/24/18 iMchel Yanez, DIRECTOR OF STUDENT FINANCIAL AID, RAWHIDE BONE ROLLER #2 [place] [address] Nurse Practitioner Advanced Practice Nurse 12/28/21 Laureano uQigley MD #2 [facility] [address] [place] [address] Consulting Physician Urology 02/04/22 Elsa Kenny, DIRECTOR OF STUDENT FINANCIAL AID, RAWHIDE BONE ROLLER #2 [facility] [address] [place] [address] Nurse Practitioner Cardiology 07/14/23 09/17/24 Saurav Goyal MD #2 [place] [address] Consulting Physician Pulmonary Disease 07/28/23 Yuni Meneses, SALES ORDER SPECIALIST [place] Miniature Model Maker Assistant Department Manager 11/27/23 12/04/23 Ayala Weaver, DIRECTOR OF STUDENT FINANCIAL AID, FOOD MIXER #2 [place] [address] Nurse Practitioner Neurology 12/18/23 documented as of this encounter
--- OUTSIDE RECORDS SUMMARY | 2025-02-22 12:13 | XMS_ITS | Encounter Summary ---
Author Organization [facility] Address [address] [place] [address] Phone Care Team Providers Care Attending Urologist Name Role Phone Yuliana Florez APN Unavailable Unavailab Damaso Chaudhari MD Primary Care Provider [phone] Michel Yanez APRN, TRANSFORMATION CONSULTANT Unavailable [phone] Laureano Quigley MD Unavailable [phone] Elsa Kenny APRN, TRANSFORMATION CONSULTANT Unavailable + [phone] Saurav Goyal MD Unavailable Homer Alcala MD Primary Care Provider [phone] Yuni Meneses TAPING FOREMAN Unavailable Unavailab Ayala Orozco APRN, ANIMAL CONTROL SUPERVISOR Unavailable + [phone] Reason for Visit * Reason Comments Medication Refill Encounter Details Date Type Department Care Team (Late st Contact Info) Description 06/12/2021 Refill [facility] - Family Medicine [facility] #2 [place] [address] Damaso Vazquez MD #1 [place] [address] Medication Refill Social History Tobacco Use Types [...] 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 No / Unsure 06/15/2021 3:21 PM CDT documented as of this encounter Miscellaneous Notes * Telephone Encounter - Darline Seth RN - 06/14/2021 8:52 AM CDT Medication failed the protocol, provider to review and approve the medication order if appropriate. Requested Prescriptions Pending Prescriptions Disp Refills rosuvastatin (CRESTOR) 20 MG Tablet [Pharmacy Med Name: ROSUVASTATIN CALCIUM 20MG TABLET] 90 Tablet3 Sig: TAKE ONE (1) TABLET BY MOUTH DAILY. Hmg CoA Reductase Inhibitors Protocol Failed - 06/12/2021 8:52 AM Failed - Lipid panel in past 12 months LDL Date Value Ref Range Status 06/04/2020 196 (H) 5 - 130 mg/dL Final HDL CHOLESTEROL Date Value Ref Range Status 06/04/2020 36.3 (L) >40 mg/dL Final CHOLESTEROL Date Value Ref Range Status 06/04/2020 307 (H) <=200 mg/dL Final TRIGLYCERIDES Date Value Ref Range Status 06/04/2020 373 (H) <150 mg/dL Final VLDL Date Value Ref Range Status 06/04/2020 75 (H) 5 - 55 mg/dL Final CHOL/HDL RATIO Date Value Ref Range Status 06/04/2020 8.5 (H) 0.0 - 4.4 Final NON-HDL CHOLESTEROL Date Value Ref Range Status 06/04/2020 270.7 (H) <130 mg/dL Final Passed - Visit with relevant provider in past 12 months or upcoming 90 days Recent Visits Date Type Provider Dept 06/11/21 Office Visit Damaso Vazquez MD [facility] 05/04/21 Office Visit Damaso Vazquez MD [facility] 09/16/20 Office Visit Damaso Vazquez MD [facility] 09/01/20 Office Visit Damaso Vazquez MD [facility] 06/30/20 [facility] Showing recent visits within past 365 days and meeting all other requirements Future Appointments No visits were found meeting these conditions. Showing future appointments within next 90 days and meeting all other requirements documented in this encounter Plan of Treatment Upcoming Encounters Date Type Department Care Team (Latest Contact Info) Description 03/03/2025 10:00 AM COMPUTER EDUCATION TEACHER Office Visit [facility] Medical [facility] - Orthopedic Surgery - [place] #2 [place] [address] Homer Alcala MD #2 [facility] [address] [place] [address] Ann Graham MD #2 [facility] [address] [place] [address] 03/04/2025 2:00 PM COMPUTER EDUCATION TEACHER Office Visit [facility] - Cardiology [facility] #2 [place] [address] Homer Alcala MD #2 [facility] [address] [place] [address] Carolin Sykes APRN, TRANSFORMATION CONSULTANT 2 [facility] [address] [place] [address] 03/19/2025 10:15 AM COMPUTER EDUCATION TEACHER Physical [facility] [address] [place] [address] Sujata Winn, INTERNAL GRINDER, TRANSFORMATION CONSULTANT [address] [place] [address] Michelle Patel, PT [place] Discharge Disposition: Discharged to home or Selfcare 03/21/2025 1:30 PM COMPUTER EDUCATION TEACHER [facility] #2 [place] [address] Ayala Weaver APRN, ANIMAL CONTROL SUPERVISOR #2 [place] [address] 04/29/2025 9:00 AM COMPUTER EDUCATION TEACHER [facility] - [place] #2 [place] [address] Ayala Weaver APRN, ANIMAL CONTROL SUPERVISOR #2 [place] [address] 05/09/2025 11:00 AM COMPUTER EDUCATION TEACHER Office Visit [facility] - Pulmonology & Sleep Medicine - [place] #2 [place] [address] Saurav Goyal MD #2 [place] [address] documented as of this encounter Goals Goal Patient Goal Type Associated Problems Recent Progress Patient-Stated? Author Depression Behavioral Health On track(2024 4:40 PM CDT) No Flora Yip LCSW Note: GOAL: Lisseth will manage depressive symptoms more effectively. Goal Reviewed with: patient today Readiness to change: Ready to change Department associated with goal: [facility] Steps [...] Ready to change Department associated with goal: [facility] Steps [...] 04/05/2024 04/05/2024 04/05/2024 12:3 5 PM COMPUTER EDUCATION TEACHER COVID - 19 05/19/2024 05/19/2024 05/19/2024 6:18 PM CDT Assessment Noted Time PHQ-9 Depression Total Score: 1 01/12/20 19 5:00 PM COMPUTER EDUCATION TEACHER documented as of this encounter Care Teams Attending Urologist Relationship Specialty Start Date End Date Damaso Vazquez MD PCP - General Family Medicine 05/28/20 08/31/23 Homer Alcala MD #2 [facility] [address] [place] [address] PCP - General Family Medicine 09/01/23 Yuliana Florez, BUSINESS CONTINUITY GLOBAL DIRECTOR Advanced Practice Nurse 01/24/18 Michel Yanez, INTERNAL GRINDER, TRANSFORMATION CONSULTANT #2 [place] [address] Nurse Practitioner Advanced Practice Nurse 12/28/21 Laureano Quigley MD #2 [facility] [address] [place] [address] Consulting Physician Urology 02/04/22 Elsa Kenny, INTERNAL GRINDER, TRANSFORMATION CONSULTANT #2 [facility] [address] [place] [address] Nurse Practitioner Cardiology 07/14/23 09/17/24 Saurav Goyal MD #2 [place] [address] Consulting Physician Pulmonary Disease 07/28/23 Yuni Meneses, TAPING FOREMAN [place] Jinrikisha Driver Utility Bill Collection Clerk 11/27/23 12/04/23 Ayala Weaver, INTERNAL GRINDER, ANIMAL CONTROL SUPERVISOR #2 [place] [address] Nurse Practitioner Neurology 12/18/23 documented as of this encounter
--- OUTSIDE RECORDS SUMMARY | 2025-02-22 12:13 | XMS_ITS | Encounter Summary ---
Author Organization [facility] Address [address] [place] [address] Phone Care Team Providers Care Security Nurse Name Role Phone Yuliana Florez APN Unavailable Unavailab Damaso Chaudhari MD Primary Care Provider [phone] Michel Yanez APRN, EDGE GRINDER Unavailable [phone] Laureano Quigley MD Unavailable [phone] Elsa Kenny APRN, EDGE GRINDER Unavailable + [phone] Saurav Goyal MD Unavailable Homer Alcala MD Primary Care Provider [phone] Yuni Meneses CABLE TELEVISION LINE TECHNICIAN Unavailable Unavailab Ayala Orozco APRN, TOP LIFT COMPRESSOR Unavailable + [phone] Reason for Visit * Reason Comments Medication Refill Encounter Details Date Type Department Care Team (Late st Contact Info) Description 10/27/2020 [facility] [address] [place] [address] Damaso Vazquez MD #[address] [place] [address] Medication Refill Social History Tobacco Use Types [...] 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 No / Unsure 09/29/2020 11:13 AM CDT documented as of this encounter Miscellaneous Notes * Telephone Encounter - Darline Seth RN - 10/27/2020 11:59 AM CDT Medication failed the protocol, provider to review and approve the medication order if appropriate. Requested Prescriptions Pending Prescriptions Disp Refills Desvenlafaxine Succinate 100 MG TABLET SR 24 HR [Pharmacy Med Name: DESVENLAFAXINE SUC ER 100 M 100Tablet] 30 Tablet 2 Sig: TAKE ONE TABLET BY MOUTH EVERY DAY healthfinch Off-Protocol Failed - 10/27/2020 8:35 AM Failed - Medication not assigned to a protocol, review manually. Passed - Valid encounter within last 12 months Past Office Visits Recent Outpatient Visits 1 month ago Ataxia [facility] Medical [facility] Family [facility] Damaso Romo MD 1 month ago Current severe episode of major depressive disorder without psychotic features, unspecified whether recurrent (HCC) [facility] Damaso Romo MD 3 months ago Anxiety [facility] - Damaso Romo MD 5 months ago Benign essential HTN [facility] - Damaso Romo MD 8 months ago Pain in both lower extremities [facility] Felecia Saenz, THINNER SPRAYER, EDGE GRINDER Upcoming Appointments Future Appointments In [address] [facility], [facility] SENIOR CYTOGENETICS LABORATORY DIRECTOR - Recent and Past Visits Recent Visits Date Type Provider Dept 09/16/20 Office Visit Damaso Vazquez MD [facility] 09/01/20 Office Visit Damaso Vazquze MD [facility] 06/30/20 Office Visit Damaso Vazquez MD [facility] 05/28/20 Office Visit Damaso Vazquez MD [facility] 02/10/20 Office Visit Felecia Saenz APN, EDGE GRINDER [facility]19 Office Visit Felecia Saenz APN, EDGE GRINDER [facility] Showing recent visits within past 460 days with a meds authorizing provider and meeting all other requirements Future Appointments No visits were found meeting these conditions. Showing future appointments within next 90 days with a meds authorizing provider and meeting all other requirements SNRI (6 Month Refill Only) Protocol Passed - 10/27/2020 8:35 AM Passed - Visit with relevant provider in past 6 months or upcoming 90 days Recent Visits Date Type Provider Dept 09/16/20 Office Visit Damaso Vazquez MD [facility] 09/01/20 Office Visit Damaso Vazquez MD [facility] 06/30/20 Office Visit Damaso Vazquez MD [facility] 05/28/20 Office Visit Damaso Vazquez MD [facility] Showing recent visits within past 182 days and meeting all other requirements Future Appointments No visits were found meeting these conditions. Showing future appointments within next 90 days and meeting all other requirements Passed - Has an encounter in the past 6 months with a depression or anxiety visit diagnosis Passed - Patient has established therapy with Serotonin-Norepinephrine Reuptake Inhibitors for at least 6 months documented in this encounter Plan of Treatment Upcoming Encounters Date Type Department Care Team (Latest Contact Info) Description 03/03/2025 10:00 AM TRANSFER AND LINE UP WORKER [facility] [place] #2 [place] [address] Homer Alcala MD #2 [facility] 205 [place] [address] Ann Graham MD #[address] [address] 03/04/2025 2:00 PM TRANSFER AND LINE UP WORKER [facility] [place] #2 [place] [address] Homer Alcala MD #[address] [address] Carolin Sykes APRN, EDGE GRINDER [address] [address] 03/19/2025 10:15 AM TRANSFER AND LINE UP WORKER [facility] [address] [address] Sujata Winn APRN, EDGE GRINDER [address] [place] [address] Michelle Patel, PT [place] Discharge Disposition: Discharged to home or Selfcare 03/21/2025 1:30 PM TRANSFER AND LINE UP WORKER [facility] [place] #2 [place] [address] Ayala Weaver APRN, TOP LIFT COMPRESSOR #2 [place] [address] 04/29/2025 9:00 AM TRANSFER AND LINE UP WORKER Office Visit [facility] - Neurology - [place] #2 [facility] [place] [address] MunaAyala francisco Jere, CARDIOTHORACIC ICU RN, TOP LIFT COMPRESSOR #[address] [facility] [place] [address] 05/09/2025 11:00 AM TRANSFER AND LINE UP WORKER Office Visit [facility] - Pulmonology & Sleep Medicine - [place] #2 [facility] [place] [address] Saurav Goyal MD #[address] [facility] [place] [address] documented as of this encounter Goals Goal [...] - 04/05/2024 04/05/2024 04/05/2024 12:3 5 PM TRANSFER AND LINE UP WORKER COVID - 05/19/2024 05/19/2024 05/19/2024 6:18 PM CDT Assessment Noted Time PHQ-9 Depression Total Score: 1 01/12/20 19 5:00 PM TRANSFER AND LINE UP WORKER documented as of this encounter Care Teams Security Nurse Relationship Specialty Start Date End Date Damaso Vazquez MD PCP - General Family Medicine 05/28/20 08/31/23 Homer Alcala MD #2 [facility] [address] [place] [address] PCP - General Family Medicine 09/01/23 Yuliana Florez THINNER SPRAYER Advanced Practice Nurse 01/24/18 Michel Yanez APRN, EDGE GRINDER #2 [place] [address] Nurse Practitioner Advanced Practice Nurse 12/28/21 Laureano Quigley MD #2 [facility] [address] [place] [address] Consulting Physician Urology 02/04/22 Elsa Kenny, CARDIOTHORACIC ICU RN, EDGE GRINDER [facility] [address] [address] Nurse Practitioner Cardiology 07/14/23 09/17/24 Saurav Goyal MD #2 [place] [address] Consulting Physician Pulmonary Disease 07/28/23 Yuni Meneses, [facility] Candy Bar Attendant Clipman 11/27/23 12/04/23 Ayala Weaver APRN, TOP LIFT COMPRESSOR #2 [place] [address] Nurse Practitioner Neurology 12/18/23 documented as of this encounter
--- OUTSIDE RECORDS SUMMARY | 2025-02-22 12:13 | XMS_ITS | Encounter Summary ---
Author Organization [facility] Address [address] [place] [address] Phone Care Team Providers Care Facilities Assistant Name Role Phone Yuliana Florez APN Unavailable Unavailab Damaso Chaudhari MD Primary Care Provider [phone] Michel Yanez APRN, CONSTRUCTION IRONWORKER HELPER Unavailable [phone] Laureano Quigley MD Unavailable [phone] Elsa Kenny APRN, CONSTRUCTION IRONWORKER HELPER Unavailable + [phone] Saurav Goyal MD Unavailable Homer Alcala MD Primary Care Provider [phone] Yuni Meneses PROMOTIONAL DEMONSTRATOR Unavailable Unavailab Ayala Orozco APRN, POWDER GUARD Unavailable + [phone] Reason for Visit * Reason Comments Medication Refill Encounter Details Date Type Department Care Team (Late st Contact Info) Description 05/10/2021 Refill [facility] - Family Medicine - [place] [address] [place] [address] Damaso Vazquez MD #1 [place] [address] Medication Refill Social History Tobacco Use Types Packs/Day Years Used Date Smoking Tobacco: Former Cigarettes 0.5 30 0 03/13/1988 - 03/13/2018 Smokeless Tobacco: Never Alcohol Use Standard Drinks/Week Comments Not Currently 0 (1 standard drink = 0.6 oz pur e alcohol) seldom PHQ-2 Answer Date Recorded Total Score - Questions 1-9 0 03/2021 Sexually Active Control Partners Comments Yes Comments No Sex and Gender Information Value Date Recorded Sex Assigned at Not on file Legal Sex Female 8:32 AM CDT Gender Identity Not on file Sexual Orientation Not on file 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 No / Unsure 05/13/2021 6:50 AM MORTUARY OPERATIONS MANAGER documented as of this encounter Miscellaneous Notes * Telephone Encounter - Darline Seth RN - 05/11/2021 9:45 AM CST Medication warning Per nursing clinical judgement, provider to review and approve the medication(s) order(s) if appropriate. Requested Prescriptions Pending Prescriptions Disp Refills Desvenlafaxine Succinate 100 MG TABLET SR 24 HR [Pharmacy Med Name: DESVENLAFAXINE ER 100MG ER TABLET ER 24HR] 30 Tablet 2 Sig: TAKE ONE TABLET BY MOUTH EVERY DAY SNRI (6 Month Refill Only) Protocol Passed - 05/10/2021 10:21 AM Passed - Visit with relevant provider in past 6 months or upcoming 90 days Recent Visits Date Type Provider Dept 05/04/21 Office Visit Damaso Vazquez MD [facility] Showing recent visits within past 182 days and meeting all other requirements Future Appointments Date Type Provider Dept 06/01/21 Appointment Damaso Vazquez MD [facility] Showing future appointments within next 90 days and meeting all other requirements Passed - Has an encounter in the past 6 months with a depression or anxiety visit diagnosis Passed - Patient has established therapy with Serotonin-Norepinephrine Reuptake Inhibitors for at least 6 months UARY OPERATIONS MANAGER documented in this encounter Plan of Treatment Upcoming Encounters Date Type Department Care Team (Latest Contact Info) Description 03/03/2025 10:00 AM MORTUARY OPERATIONS MANAGER Office Visit [facility] - Orthopedic Surgery - [place] #2 [place] [address] Homer Alcala MD #[address] [address] Ann Graham MD #[address] [address] 03/04/2025 2:00 PM MORTUARY OPERATIONS MANAGER Office Visit [facility] Cardiology - [place] [address]2 [place] [address] Homer Alcala MD #[address] [address] Carolin Sykes APRN, CONSTRUCTION IRONWORKER HELPER [address] [address] 03/19/2025 10:15 AM MORTUARY OPERATIONS MANAGER Physical Therapy [facility] at [facility] [address] [address] Sujata Winn APRN, CONSTRUCTION IRONWORKER HELPER [address] [place] [address] Michelle Patel, PT [place] Discharge Disposition: Discharged to home or Selfcare 03/21/2025 1:30 PM MORTUARY OPERATIONS MANAGER Office Visit [facility] Neurology [facility] #2 [facility] [place] [address] Ayala Weaver, RETAIL BRAND AMBASSADOR, POWDER GUARD #2 [facility] [address] 04/29/2025 9:00 AM MORTUARY OPERATIONS MANAGER Office Visit [facility] Neurology [facility] #2 [facility] [place] [address] Ayala Weaver, RETAIL BRAND AMBASSADOR, POWDER GUARD #2 [facility] [address] 05/09/2025 11:00 AM MORTUARY OPERATIONS MANAGER Office Visit [facility] Pulmonology & Sleep Medicine [facility] #2 [facility] [place] [address] Saurav Goyal MD #2 [facility] [address] documented as of this encounter Goals Goal Patient Goal Type Associated Problems Recent Progress Patient-Stated? Author Depression Behavioral Health On track(2024 4:40 PM CDT) Flora Miller, MAINS AND SERVICE SUPERVISOR Note: GOAL: Lisseth will manage depressive symptoms more effectively. Goal Reviewed with: patient today Readiness to change: Ready to change Department associated with goal: [facility] Steps to achieve [...] On track(2024 4:40 PM CDT) Flora Miller, MAINS AND SERVICE SUPERVISOR Note: GOAL: Lisseth will process feelings of grief and loss related to her son. Goal Reviewed with: patient today Readiness to change: Ready to change Department associated with goal: [facility] Steps to achieve [...] 19 04/05/2024 04/05/2024 04/05/2024 12:3 5 PM MORTUARY OPERATIONS MANAGER COVID - 19 05/19/2024 05/19/2024 05/19/2024 6:18 PM CDT Assessment Noted Time PHQ-9 Depression Total Score: 1 01/12/20 19 5:00 PM MORTUARY OPERATIONS MANAGER documented as of this encounter Care Teams Facilities Assistant Relationship Specialty Start Date End Date Damaso Vazquez MD PCP - General Family Medicine 05/28/20 08/31/23 Homer Alcala MD #[address] [address] PCP - General Family Medicine 09/01/23 Yuliana Florez APN Advanced Practice Nurse 01/24/18 Michel Yanez, RETAIL BRAND AMBASSADOR, CONSTRUCTION IRONWORKER HELPER #2 [place] [address] Nurse Practitioner Advanced Practice Nurse 12/28/21 Laureano Quigley MD #2 [place] [facility], [facility] [address] [place] [address] Consulting Physician Urology 02/04/22 Elsa Kenny, RETAIL BRAND AMBASSADOR, CONSTRUCTION IRONWORKER HELPER #2 [facility] [place] [facility], [facility] [address] [place] [address] Nurse Practitioner Cardiology 07/14/23 09/17/24 Saurav Goyal MD #2 [place] [phone] Consulting Physician Pulmonary Disease 07/28/23 Yuni Meneses, [facility] Contract Administrative Assistant [employer] House Laborer 11/27/23 12/04/23 Ayala Weaver, RETAIL BRAND AMBASSADOR, POWDER GUARD #2 [place] [address] Nurse Practitioner Neurology 12/18/23 documented as of this encounter
--- OUTSIDE RECORDS SUMMARY | 2025-02-22 12:13 | XMS_ITS | Encounter Summary ---
Author Organization [facility] Address [address] [place] [address] Phone Care Team Providers Care Hand Tapper Name Role Phone Yuliana Florez APN Unavailable Unavailab Damaso Chaudhari MD Primary Care Provider [phone] Michel Yanez APRN, PRIMER INSERTING MACHINE ADJUSTER Unavailable [phone] Laureano Quigley MD Unavailable [phone] Elsa Kenny APRN, PRIMER INSERTING MACHINE ADJUSTER Unavailable + [phone] Saurav Goyal MD Unavailable Homer Alcala MD Primary Care Provider [phone] Yuni Meneses INSPECTOR CANNED FOOD RECONDITIONING Unavailable Unavailab Ayala Orozco APRN, MACHINE LACER Unavailable + [phone] Reason for Visit * Reason Comments Medication Refill Encounter Details Date Type Department Care Team (Late st Contact Info) Description 02/25/2021 Refill [facility] - Family Medicine - [place] [address] [place] [address] Jourdan Jimenez, GABRIEL, PRIMER INSERTING MACHINE ADJUSTER [address] [address] Medication Refill Social History Tobacco Use Types [...] Telephone Encounter - Darline Seth RN - 02/25/2021 11:02 AM CST Medication warning Per nursing clinical judgement, provider to review and approve the medication(s) order(s) if appropriate. Requested Prescriptions Pending Prescriptions Disp Refills FLUoxetine (PROzac) 20 MG Capsule [Pharmacy Med Name: FLUOXETINE HCL 20 MG CAP 20 Capsule] 60 Capsule 1 Sig: TAKE 2 CAPSULES BY MOUTH DAILY. SSRI (6 Month Refill Only) Protocol Passed - 02/25/2021 8:04 AM Passed - Visit with relevant provider [...] and meeting all other requirements Passed - Patient has established therapy with SSRI for at least 6 months Passed - Has an encounter in the past 6 months with a depression, anxiety, adjustment disorder, OCD, or PTSD visit diagnosis AGE WRAPPER documented in this encounter Plan of Treatment Upcoming Encounters Date Type Department Care Team (Latest Contact Info) Description 03/03/2025 10:00 AM PACKAGE WRAPPER Office Visit [facility] - Orthopedic Surgery - [place] [address] [place] [address] Homer Alcala MD #2 [facility] [address] [place] [address] Ann Graham MD #2 [facility] [address] [place] [address] 03/04/2025 2:00 PM PACKAGE WRAPPER Office Visit [facility]2 [place] [address] Homer Alcala MD #2 [facility] [address] [place] [address] Carolin Sykes APRN, PRIMER INSERTING MACHINE ADJUSTER 2 [facility] [address] [place] [address] 03/19/2025 10:15 AM PACKAGE WRAPPER Physical Therapy [facility] Re[facility] at [facility] 200 [facility], [facility] [address] [place] [address] Sujata Winn, DISTRIBUTION ESTIMATOR, PRIMER INSERTING MACHINE ADJUSTER [address] [place] [address] Michelle Patel, PT [place] Discharge Disposition: Discharged to home or Selfcare 03/21/2025 1:30 PM PACKAGE WRAPPER Office Visit [facility] Neurology - [place] #2 [place] [address] Ayala Weaver, DISTRIBUTION ESTIMATOR, MACHINE LACER #2 [place] [address] 04/29/2025 9:00 AM PACKAGE WRAPPER Office Visit [facility] Neurology - [place] #2 [facility] [address] Ayala Weaver, DISTRIBUTION ESTIMATOR, MACHINE LACER #2 [place] [address] 05/09/2025 11:00 AM PACKAGE WRAPPER Office Visit [facility] - Pulmonology & Sleep Medicine - [place] [address]2 [facility] [address] Saurav Goyal MD #2 [place] [address] documented as of this encounter Goals Goal Patient Goal Type Associated Problems Recent Progress Patient-Stated? Author Depression Behavioral Health On track(2024 4:40 PM CDT) No Flora Yip LCSW Note: GOAL: Lisseth will manage depressive symptoms more effectively. Goal Reviewed with: patient today Readiness to change: Ready to change Department associated with goal: [facility] Steps to achieve [...] Ready to change Department associated with goal: [facility] Steps to [...] - 04/05/2024 04/05/2024 04/05/2024 12:3 5 PM PACKAGE WRAPPER COVID - 05/19/2024 05/19/2024 05/19/2024 6:18 PM CDT Assessment Noted Time PHQ-9 Depression Total Score: 1 01/12/20 19 5:00 PM PACKAGE WRAPPER documented as of this encounter Care Teams Hand Tapper Relationship Specialty Start Date End Date Damaso Vazquez MD PCP - General Family Medicine 05/28/20 08/31/23 Homer Alcala MD #2 [facility] [address] [place] [address] PCP - General Family Medicine 09/01/23 Yuliana Florez THERAPEUTIC DIETITIAN Advanced Practice Nurse 01/24/18 Michel Yanez APRN, PRIMER INSERTING MACHINE ADJUSTER #2 [place] [address] Nurse Practitioner Advanced Practice Nurse 12/28/21 [facility] MD [facility] [address] [place] [address] Consulting Physician Urology 02/04/22 Elsa Kenny APRN, PRIMER INSERTING MACHINE ADJUSTER #[address] [place] [address] [place] [address] Nurse Practitioner Cardiology 07/14/23 09/17/24 Saurav Goyal MD #[address] [place] [address] Consulting Physician Pulmonary Disease 07/28/23 Yuni Meneses, [place] Ged Teacher Stone Fabricator 11/27/23 12/04/23 Ayala Weaver APRN, MACHINE LACER #2 [place] [address] Nurse Practitioner Neurology 12/18/23 documented as of this encounter
--- OUTSIDE RECORDS SUMMARY | 2025-02-22 12:13 | XMS_ITS | Encounter Summary ---
Author Organization [facility] Address [address] [place] [address] Phone Care Team Providers Care Electric Fork Operator Name Role Phone Yuliana Florez APN Unavailable Unavailab Damaso Chaudhari MD Primary Care Provider [phone] Michel Yanez APRN, CHEMICALS DISTILLER Unavailable [phone] Laureano Quigley MD Unavailable [phone] Elsa Kenny APRN, CHEMICALS DISTILLER Unavailable + [phone] Saurav Goyal MD Unavailable Homer Alcala MD Primary Care Provider [phone] Yuni Meneses STRATEGIC PROCUREMENT MANAGER Unavailable Unavailab Ayala Orozco APRN, WHEEL TRUING MACHINE TENDER Unavailable + [phone] Reason for Visit * Reason Comments Medication Refill Encounter Details Date Type Department Care Team (Late st Contact Info) Description 12/29/2020 Refill [facility] - Family Medicine - [place] [address] [place] [address] Damaso Vazquez MD [address] [place] [address] Medication Refill Social History Tobacco Use Types [...] 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 Requested Prescriptions Pending Prescriptions Disp Refills FLUoxetine (PROzac) 20 MG Capsule [Pharmacy Med Name: FLUOXETINE HCL 20 MG CAP 20 Capsule] 60 Capsule 1 Sig: TAKE 2 CAPSULES BY MOUTH DAILY. SSRI (6 Month Refill Only) Protocol Passed - 12/29/2020 8:44 AM Passed - Visit with relevant provider [...] (Latest Contact Info) Description 03/03/2025 10:00 AM FINGERPRINTER Office Visit [facility] - Orthopedic Surgery - [place] #2 [place] [address] Homer Alcala MD #2 [facility] [address] [place] [address] Ann Graham MD #[address] [address] 03/04/2025 2:00 PM FINGERPRINTER Office Visit [facility] Cardiology [facility] #2 [place] [address] Homer Alcala MD #[address] [address] Carolin Sykes APRN, CHEMICALS DISTILLER 2 [facility] [address] [place] [address] 03/19/2025 10:15 AM FINGERPRINTER Physical Therapy [facility] Rehab at [facility] 200 [facility], [facility] [address] [place] [address] Sujata Winn, ACCESSIBILITY LIFT TECHNICIAN, CHEMICALS DISTILLER [address] [place] [address] Michelle Patel, PT [place] Discharge Disposition: Discharged to home or Selfcare 03/21/2025 1:30 PM FINGERPRINTER Office Visit [facility] Neurology [facility] #2 [facility] [address] Ayala Weaver, ACCESSIBILITY LIFT TECHNICIAN, WHEEL TRUING MACHINE TENDER #2 [place] [address] 04/29/2025 9:00 AM FINGERPRINTER Office Visit [facility] - Neurology - [place] #2 [place] [address] Ayala Weaver, ACCESSIBILITY LIFT TECHNICIAN, WHEEL TRUING MACHINE TENDER #2 [place] [address] 05/09/2025 11:00 AM FINGERPRINTER Office Visit [facility] - Pulmonology & Sleep Medicine - [place] #2 [place] [address] Saurav Goyal MD #2 [place] [address] documented as of this encounter Goals Goal Patient Goal Type Associated Problems Recent Progress Patient-Stated? Author Depression Behavioral Health On track(2024 4:40 PM CDT) No Flora Yip LCSW Note: GOAL: Lisseth will manage depressive symptoms more effectively. Goal Reviewed with: patient today Readiness to change: Ready to change Department associated with goal: [facility] Steps to [...] Ready to change Department associated with goal: [facility] Steps to [...] - 04/05/2024 04/05/2024 04/05/2024 12:3 5 PM FINGERPRINTER COVID - 05/19/2024 05/19/2024 05/19/2024 6:18 PM CDT Assessment Noted Time PHQ-9 Depression Total Score: 1 01/12/20 19 5:00 PM FINGERPRINTER documented as of this encounter Care Teams Electric Fork Operator Relationship Specialty Start Date End Date Damaso Vazquez MD PCP - General Family Medicine 05/28/20 08/31/23 Homer Alcala MD #[address] [address] PCP - General Family Medicine 09/01/23 Yuliana Florez APN Advanced Practice Nurse 01/24/18 Michel Yanez APRN, CHEMICALS DISTILLER #2 [place] [address] Nurse Practitioner Advanced Practice Nurse 12/28/21 Laureano Quigley MD #[address] [place] [place] [address] Consulting Physician Urology 02/04/22 Elsa Kenny APRN, CHEMICALS DISTILLER #[address] [place], [address] [place] [address] Nurse Practitioner Cardiology 07/14/23 09/17/24 Saurav Goyal MD #[address] [place] [address] Consulting Physician Pulmonary Disease 07/28/23 Yuni Meneses, STRATEGIC PROCUREMENT MANAGER [place] Flaker Operator Instant Powder Supervisor 11/27/23 12/04/23 Ayala Weaver APRN, WHEEL TRUING MACHINE TENDER #[address] [place] [address] Nurse Practitioner Neurology 12/18/23 documented as of this encounter
--- OUTSIDE RECORDS SUMMARY | 2025-02-22 12:13 | XMS_ITS | Encounter Summary ---
Author Organization [facility] Address [address] [place] [phone] Phone Care Team Providers Care Laboratory Sampler Name Role Phone Yuliana Florez APN Unavailable Unavailab Damaso Chaudhari MD Primary Care Provider [phone] Michel Yanez APRN, SECURITY ARCHITECT Unavailable [phone] Laureano Quigley MD Unavailable [phone] Elsa Kenny APRN, SECURITY ARCHITECT Unavailable + [phone] Saurav Goyal MD Unavailable Homer Alcala MD Primary Care Provider [phone] Yuni Meneses LEATHER TANNER Unavailable Unavailab Ayala Orozco APRN, AFRICANA STUDIES PROFESSOR Unavailable + [phone] Reason for Visit * Reason Comments Medication Refill Encounter Details Date Type Department Care Team (Late st Contact Info) Description 06/07/2021 Refill [facility] [place] [address] [place] [address] Damaso Vazquez MD [address] [place] [address] Medication Refill Social History Tobacco Use Types [...] 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 No / Unsure 06/03/2021 3:55 PM CDT documented as of this encounter Miscellaneous Notes * Telephone Encounter - Darleen Barrera RN - 06/07/2021 3:17 PM CDT Medication failed the protocol, provider to review and approve the medication order if appropriate. Requested Prescriptions Pending Prescriptions Disp Refills losartan (COZAAR) 50 MG Tablet [Pharmacy Med Name: LOSARTAN POTASSIUM 50MG TABLET] 30 Tablet 3 Sig: TAKE ONE TABLET BY MOUTH DAILY ARB Protocol Failed - 06/07/2021 9:17 AM Failed - Serum potassium on record in past 12 months POTASSIUM Date Value Ref Range Status 06/04/2020 3.8 3.5 - 5.1 mmol/L Final Failed - GFR on record in past 12 months GFR, EST. NONAFRICAN Date Value Ref Range Status 06/04/2020 >60 >=60 Final Passed - BP on record in the past year Clinician-entered: BP Readings from Last 3 Encounters: 05/04/21 108/68 09/16/20 120/68 09/01/20 120/62 Patient-entered: No data recorded Passed - Visit with relevant provider in past year or upcoming 90 days Recent Visits Date Type Provider Dept 05/04/21 Office Visit Damaso Vazquez MD [facility] 09/16/20 Office Visit Damaso Vazquez MD [facility] 09/01/20 Office Visit Damaso Vazquez MD [facility] 06/30/20 Office Visit Damaso Vazquez MD [facility] Showing recent visits within past 365 days and meeting all other requirements Future Appointments Date Type Provider Dept 06/11/21 Appointment Damaso Vazquez MD [facility] Showing future appointments within next 90 days and meeting all other requirements buPROPion (WELLBUTRIN) 300 MG TABLET SR 24 HR XL tablet [Pharmacy Med Name: BUPROPION HYDROCHLORIDEER (XL) 300MG XL TABLET ER 24HR] 30 Tablet 3 Sig: TAKE ONE (1) TAB BY MOUTH EVERY MORNING. Bupropion (6 Month Refill Only) Protocol Passed - 06/07/2021 9:17 AM Passed - Visit with relevant provider in past 6 months or upcoming 90 days Recent Visits Date Type Provider Dept 05/04/21 Office Visit Damaso Vazquez MD [facility] Showing recent visits within past 182 days and meeting all other requirements Future Appointments Date Type Provider Dept 06/11/21 Appointment Damaso Vazquez MD [facility] Showing future appointments within next 90 days and meeting all other requirements Passed - Has an encounter in the past 6 months with a depression or anxiety visit diagnosis Passed - Patient has established therapy with Bupropion for at least 6 months documented in this encounter Plan of Treatment Upcoming Encounters Date Type Department Care Team (Latest Contact Info) Description 03/03/2025 10:00 AM AUTOMATIC HEAD SAWYER Office Visit [facility] Surgery - [place] [address] [place] [address] Homer Alcala MD [address]2 [facility] [address] [place] [address] Ann Graham MD [address]2 [facility] [address] [place] [address] 03/04/2025 2:00 PM AUTOMATIC HEAD SAWYER [facility] [place] [address] [place] [id number] Homer Alcala MD [address] [facility] [address] [place] [address] Carolin Sykes, NETWORK ADMIN, SECURITY ARCHITECT [address] [address] 03/19/2025 10:15 AM AUTOMATIC HEAD SAWYER Physical Therapy [facility] [address] [facility] [address] [place] [address] Sujtaa Winn, NETWORK ADMIN, SECURITY ARCHITECT [address] [place] [address] Michelle Patel, PT [place] Discharge Disposition: Discharged to home or Selfcare 03/21/2025 1:30 PM AUTOMATIC HEAD SAWYER [facility] - [place] [address] [place] [phone] Ayala Weaver NETWORK ADMIN, AFRICANA STUDIES PROFESSOR [address] [place] [address] 04/29/2025 9:00 AM AUTOMATIC HEAD SAWYER Office Visit [facility] - Neurology - [place] [address] [place] [id number] Ayala Weaver NETWORK ADMIN, AFRICANA STUDIES PROFESSOR [address] [place] [address] 05/09/2025 11:00 AM AUTOMATIC HEAD SAWYER Office Visit [facility] - Pulmonology & Sleep Medicine - [place] [address] [place] [address] Saurav Goyal MD [address] [place] [address] documented as of this encounter Goals Goal Patient Goal Type Associated Problems Recent Progress Patient-Stated? Author Depression Behavioral Health On track(2024 4:40 PM CDT) No Flora Yip LCSW Note: GOAL: Lisseth will manage depressive symptoms more effectively. Goal Reviewed with: patient today Readiness to change: Ready to change Department associated with goal: [facility] Steps to [...] Ready to change Department associated with goal: [facility] Steps to [...] 19 04/05/2024 04/05/2024 04/05/2024 12:3 5 PM AUTOMATIC HEAD SAWYER COVID - 19 05/19/2024 05/19/2024 05/19/2024 6:18 PM CDT Assessment Noted Time PHQ-9 Depression Total Score: 1 01/12/20 19 5:00 PM AUTOMATIC HEAD SAWYER documented as of this encounter Care Teams Laboratory Sampler Relationship Specialty Start Date End Date Damaso Vazquez MD PCP - General Family Medicine 05/28/20 08/31/23 Homer Alcala MD [address] [facility] [address] [place] [address] PCP - General Family Medicine 09/01/23 Yuliana Florez TAX MANAGER Advanced Practice Nurse 01/24/18 Michel Yanez APRN, SECURITY ARCHITECT [address] [place] [address] Nurse Practitioner Advanced Practice Nurse 12/28/21 Laureano Quigley MD [address] [facility] [address] [place] [address] Consulting Physician Urology 02/04/22 Elsa Kenny APRN, SECURITY ARCHITECT [address]2 [facility] [place] [facility] [address] [place] [address] Nurse Practitioner Cardiology 07/14/23 09/17/24 Saurav Goyal MD [address] [place] [address] Consulting Physician Pulmonary Disease 07/28/23 Yuni Meneses, LEATHER TANNER [place] [employer] Generator Oiler Second Grade Teacher 11/27/23 12/04/23 Ayala Weaver, NETWORK ADMIN, AFRICANA STUDIES PROFESSOR [address] [place] [address] Nurse Practitioner Neurology 12/18/23 documented as of this encounter
--- OUTSIDE RECORDS SUMMARY | 2025-02-22 12:13 | XMS_ITS ---
Author Organization [facility] Address [address], [place] Phone Care Team Providers Care Optimization Consultant Name Role Phone XUAN MARIE-ARIANA EULALIA Rex Unavailable [phone] STACEY ELENAN,STEPHANIE, STUART A Primary Care Provider [phone] Plan of Treatment Referrals To Diagnosis Pain Management [facility] [address] [place], [place] - Spinal stenosis, lumbar region with neurogenic claudication Note: consent for bilateral L5-S1 transforaminal epidural Last Documented On 0 3:17PM ; [facility] Pain Management [address] - Other spondylosis with radiculopathy, lumbar region Note: consent for bilateral L5-S1 transforaminal epidural Last Documented On 1 3:56PM ; [facility] Orthopedic [facility] [address] [place] [address] - Spinal stenosis, lumbar region with neurogenic claudication Last Documented On 2 2:46PM ; [facility] Psychologist Nabila Chandler MD Spinal stenosi s, lumbar region with neurogenic claudication Note: psychological evaluati on for scs trial/implant Last Documented On 2 4:35PM ; [facility] Pain Management [facility] [address] [place], [place] - Postlaminectomy syndrome, not elsewhere classified Note: ADDITIONAL dx CODE: haile mbar spinal stenosis with neurogenic claudicationConsent for spinal cord stimulator trial-lead placement under fluorscopic guidance Last Documented On 2 3:10PM ; [facility] Pain Management [facility] - [address] [place] [address] - Spinal stenosis, lumbar region with neurogenic claudication Note: Consent for spinal cor d stimulator implantAncef 2gm prior to procedureHold nsaids x 7 days prior to procedureNo thinnersGeneral anesthesia Last Documented On 2 10:34AM ; [facility] Pain Management [facility] - [address] [facility] [address] - Spinal stenosis, cervical region Note: Consent for rightward C6-7 interlaminar epidural Last Documented On 2 2:37PM ; [facility] Instructions to patient Intervention and counseling on cessation of tobacco use : Patient recieved smoking cessation handout Last Documented On 4 4:18PM ; [facility] Intervention and counseling on cessation of tobacco use : Patient recieved smoking cessation handout Last Documented On 3 3:43PM ; [facility] Intervention and counseling on cessation of tobacco use : Patient recieved smoking cessation handout Last Documented On 3 4:16PM ; [facility] Intervention and counseling on cessation of tobacco use : Patient recieved smoking cessation handout Last Documented On 3 4:08PM ; [facility] Intervention and counseling on cessation of tobacco use : Patient recieved smoking cessation handout Last Documented On 3 4:20PM ; [facility] Intervention and counseling on cessation of tobacco use : Patient recieved smoking cessation handout Last Documented On 3 4:14PM ; [facility] Intervention and counseling on cessation of tobacco use : Patient recieved smoking cessation handout Last Documented On 3 4:06PM ; [facility] Intervention and counseling on cessation of tobacco use : Patient recieved smoking cessation handout Last Documented On 2 2:43PM ; [facility] Intervention and counseling on cessation of tobacco use : Patient recieved smoking cessation handout Last Documented On 2 3:36PM ; [facility] Intervention and counseling on cessation of tobacco use : Patient recieved smoking cessation handout Last Documented On 2 4:10PM ; [facility] Intervention and counseling on cessation of tobacco use : Patient recieved smoking cessation handout Last Documented On 2 4:33PM ; [facility] Intervention and counseling on cessation of tobacco use : Patient recieved smoking cessation handout Last Documented On 2 3:33PM ; [facility] Intervention and counseling on cessation of tobacco use : Patient recieved smoking cessation handout Last Documented On 2 1:18PM ; [facility] Intervention and counseling on cessation of tobacco use : Patient recieved smoking cessation handout Last Documented On 1 4:23PM ; [facility] Intervention and counseling on cessation of tobacco use : Patient recieved smoking cessation handout Last Documented On 1 2:30PM ; [facility] Intervention and counseling on cessation of tobacco use : Patient recieved smoking cessation handout Last Documented On 1 3:46PM ; [facility] Intervention and counseling on cessation of tobacco use : Patient recieved smoking cessation handout Last Documented On 1 3:37PM ; [facility] Intervention and counseling on cessation of tobacco use : Patient recieved smoking cessation handout Last Documented On 0 8:32AM ; [facility] Intervention and counseling on cessation of tobacco use : Patient recieved smoking cessation handout Last Documented On 0 9:04AM ; [facility] Intervention and counseling on cessation of tobacco use : Patient recieved smoking cessation handout Last Documented On 0 9:38AM ; [facility] Intervention and counseling on cessation of tobacco use : Patient recieved smoking cessation handout Last Documented On 0 9:02AM ; [facility] Intervention and counseling on cessation of tobacco use : Patient recieved smoking cessation handout Last Documented On 0 3:49PM ; [facility] Intervention and counseling on cessation of tobacco use : Patient recieved smoking cessation handout Last Documented On 0 2:51PM ; [facility] Intervention and counseling on cessation of tobacco use : Patient recieved smoking cessation handout Last Documented On 0 1:17PM ; [facility] Education and Decision Aids were provided during visit for: Pill Count: nine HYDROCODONE Last Documented On 4 4:25PM ; [facility] Pill Count: 0 HYDROCODONE Last Documented On 4 4:17PM ; [facility] Pill Count: 0 Last Documented On 3 3:44PM ; [facility] Pill Count: 19 Last Documented On 3 4:22PM ; [facility] Pill Count: 45 HYDROCODONE-P T STATES SHE HAS #45 Last Documented On 3 3:34PM ; [facility] Pill Count: 13 HYDROCODONE Last Documented On 3 4:14PM ; [facility] Pill Count: 23 HYDROCODONE Last Documented On 2 2:52PM ; [facility] Pill Count: 19 HYDROCODONE Last Documented On 2 3:50PM ; [facility] Pill Count: 75 HYDROCODONE Last Documented On 2 4:18PM ; [facility] Pill Count: 0 HYDROCODONE PT IS OUT OF MEDICATION Last Documented On 2 4:42PM ; [facility] Pill Count: HYDROCODONE Last Documented On 2 3:33PM ; [facility] Pill Count: Patient did not bring pain medication to appointment for pill count, per policy. Advised in order to continue to safely prescribe opioids, medication must be brought to each appointment. PT STATES THAT SHE IS OUT OF MEDICATION Last Documented On 2 3:59PM ; [facility] Pill Count: HYDROCODONE Last Documented On 2 1:34PM ; [facility] Pill Count: seven HYDROCODON E Last Documented On 1 4:32PM ; [facility] Pill Count: PT HAS BEEN OUT OF MEDICATION FOR 3 WEEKS Last Documented On 1 2:36PM ; [facility] Medication # 1 Quantity: six Last Documented On 1 10:21AM ; [facility] Medication # 1 Quantity expe cted: Last Documented On 1 10:21AM ; [facility] Date and time Medication # 1 last taken: 11/26/2020 Last Documented On 1 10:21AM ; [facility] Name of Medication # 1: HYDR OCODONE-ACETAMINOPHEN 10-325 Last Documented On 1 10:34AM ; [facility] Medication # 1 Pill Descript ion: WHITE, OVAL Last Documented On 1 10:21AM ; [facility] Medication # 1 Imprint: [id number] Last Documented On 1 10:21AM ; [facility] Date on medication # 1 bottl e: 11/23/2020 Last Documented On 1 10:21AM ; [facility] Pill Counter initials: KMS Last Documented On 1 10:21AM ; [facility] No Pill Count: three Appropr iate Last Documented On 1 3:46PM ; [facility] Pill Count: two Not Appropri ate patient gave me the count, This was a telehealth appt Last Documented On 1 4:49PM ; [facility] No Pill Count: 7.5 Appropria te Last Documented On 1 4:31PM ; [facility] Pill Count: 19.5 Appropriate Last Documented On 1 10:49PM ; [facility] Pill Count: Patient did not bring pain medication to appointment for pill count, per policy. Advised in order to continue to safely prescribe opioids, medication must be brought to each appointment Last Documented On 1 3:36PM ; [facility] Pill Count: Patient did not bring pain medication to appointment for pill count, per policy. Advised in order to continue to safely prescribe opioids, medication must be brought to each appointment Last Documented On 0 8:32AM ; [facility] Pill Count: six Appropriate Last Documented On 0 10:08AM ; [facility] Pill Count: three Appropriat e Last Documented On 0 10:00AM ; [facility] Pill Count: 40 Appropriate Last Documented On 0 9:27AM ; [facility] Pill Count: Patient did not bring pain medication to appointment for pill count, per policy. Advised in order to continue to safely prescribe opioids, medication must be brought to each appointment Last Documented On 0 1:49PM ; [facility] Pill Count: 0 Not Appropriat e Last Documented On 0 3:55PM ; [facility] Pill Count: four Appropriate pt counted Last Documented On 0 10:03AM ; [facility] Pill Count: Patient did not bring pain medication to appointment for pill count, per policy. Advised in order to continue to safely prescribe opioids, medication must be brought to each appointment Last Documented On 0 2:56PM ; [facility] Assessments Includes: Assessments for all patient encounters Findings Encounter Date Cervical radiculopathy PAIN MANAGEMENT F OLLOW UP with EULALIA GOVEA [facility] 04/13/2023 Last Documented On 4 8:15AM ; [facility] Chronic pain syndrome PAIN MANAGEMENT FO LLOW UP with EULALIA GOVEA [facility] 04/13/2023 Last Documented On 4 8:15AM ; [facility] 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 PAIN M ANAGEMENT FOLLOW UP with EULALIA RENTERIAS [facility] 04/13/2023 Last Documented On 4 8:15AM ; [facility] Myalgia PAIN MANAGEMENT FOLLOW UP with T KLAUDIA RENTERIAS [facility] 04/13/2023 Last Documented On 4 8:15AM ; [facility] Subacromial bursitis on the right PAIN M ANAGEMENT FOLLOW UP with EULALIA Rex RENTERIAS [facility] 04/13/2023 Last Documented On 4 8:15AM ; [facility] Cervical radiculopathy TELEHEALTH with EULALIA GOVEA [facility] 03/14/2023 Last Documented On 4 8:29AM ; [facility] Chronic pain syndrome TELEHEALTH with EULALIA HYDE [facility] 03/14/2023 Last Documented On 4 8:29AM ; [facility] longterm use of 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 TELEHEALTH wit h EULALIA GOVEA [facility] 03/14/2023 Last Documented On 4 8:29AM ; [facility] Myalgia TELEHEALTH with EULALIA L XUAN [facility]P-BC 03/14/2023 Last Documented On 4 8:29AM ; [facility] Subacromial bursitis on the right TELEHEALTH wit h EULALIA L XUAN ANP-BC 03/14/2023 Last Documented On 4 8:29AM ; [facility] Cervical radiculopathy PAIN MANAGEMENT F OLLOW UP with EULALIA L XUAN [facility]P-BC 02/07/2023 Last Documented On 3 3:54PM ; [facility] Chronic pain syndrome PAIN MANAGEMENT FO LLOW UP with EULALIA L XUAN ANP-BC 02/07/2023 Last Documented On 3 3:54PM ; [facility] longterm use of 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 PAIN M ANAGEMENT FOLLOW UP with EULALIA L XUAN ANP-BC 02/07/2023 Last Documented On 3 3:54PM ; [facility] Myalgia PAIN MANAGEMENT FOLLOW UP with T KLAUDIA L XUAN ANP-BC 02/07/2023 Last Documented On 3 3:54PM ; [facility] Subacromial bursitis on the right PAIN M ANAGEMENT FOLLOW UP with EULALIA L XUAN ANP-BC 02/07/2023 Last Documented On 3 3:54PM ; [facility] Cervical radiculopathy PAIN MANAGEMENT F OLLOW UP with EULALIA L XUAN ANP-BC 10/06/2022 Last Documented On 3 9:50AM ; [facility] Chronic pain syndrome PAIN MANAGEMENT FO LLOW UP with EULALIA L XUAN ANP-BC 10/06/2022 Last Documented On 3 9:50AM ; [facility] 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 PAIN M ANAGEMENT FOLLOW UP with EULALIA L XUAN ANP-BC 10/06/2022 Last Documented On 3 9:50AM ; [facility] Myalgia PAIN MANAGEMENT FOLLOW UP with T KLAUDIA L XUAN [facility] 10/06/2022 Last Documented On 3 9:50AM ; [facility] Subacromial bursitis on the right PAIN M ANAGEMENT FOLLOW UP with EULALIA L XUAN ANP- 10/06/2022 Last Documented On 3 9:50AM ; [facility] Cervical radiculopathy TELEHEALTH with EULALIA L XUAN [facility]- 09/12/2022 Last Documented On 3 11:03AM ; [facility] Cervicalgia TELEHEALTH with EULALIA L XUAN [facility]- 09/12/2022 Last Documented On 3 11:03AM ; [facility] Chronic pain syndrome TELEHEALTH with EULALIA L B BARRETT [facility] 09/12/2022 Last Documented On 3 11:03AM ; [facility] 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 TELEHEALTH wit h EULALIA L XUAN [facility] 09/12/2022 Last Documented On 3 11:03AM ; [facility] Myalgia TELEHEALTH with EULALIA L XUAN [facility]- 09/12/2022 Last Documented On 3 11:03AM ; [facility] Subacromial bursitis on the right TELEHEALTH wit h EULALIA L XUAN [facility]- 09/12/2022 Last Documented On 3 11:03AM ; [facility] Arthralgia of right shoulder region INJECTION wi th WILLIE FROST MD 08/25/2022 Last Documented On 3 11:35AM ; [facility] Subacromial bursitis on the right INJECTION with WILLIE FROST MD 08/25/2022 Last Documented On 3 11:35AM ; [facility] Cervical radiculopathy PAIN MANAGEMENT F OLLOW UP with EULALIA L XUAN ANP- 07/28/2022 Last Documented On 3 2:29PM ; [facility] Cervicalgia PAIN MANAGEMENT FOLLOW UP with T KLAUDIA L XUAN [facility]- 07/28/2022 Last Documented On 3 2:29PM ; [facility] Chronic pain syndrome PAIN MANAGEMENT FO LLOW UP with EULALIA L XUAN ANP-BC 07/28/2022 Last Documented On 3 2:29PM ; [facility] longterm use of 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 PAIN M ANAGEMENT FOLLOW UP with EULALIA L XUAN ANP-BC 07/28/2022 Last Documented On 3 2:29PM ; [facility] Myalgia PAIN MANAGEMENT FOLLOW UP with T KLAUDIA L XUAN ANP-BC 07/28/2022 Last Documented On 3 2:29PM ; [facility] Subacromial bursitis on the right PAIN M ANAGEMENT FOLLOW UP with EULALIA L XUAN ANP-BC 07/28/2022 Last Documented On 3 2:29PM ; [facility] Cervical radiculopathy PAIN MANAGEMENT F OLLOW UP with EULALIA L XUAN ANP-BC 07/12/2022 Last Documented On 3 4:51PM ; [facility] Cervicalgia PAIN MANAGEMENT FOLLOW UP with T KLAUDIA L XUAN ANP-BC 07/12/2022 Last Documented On 3 4:51PM ; [facility] Chronic pain syndrome PAIN MANAGEMENT FO LLOW UP with EULALIA L XUAN ANP-BC 07/12/2022 Last Documented On 3 4:51PM ; [facility] 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 PAIN M ANAGEMENT FOLLOW UP with EULALIA L XUAN ANP-BC 07/12/2022 Last Documented On 3 4:51PM ; [facility] Lumbar canal stenosis with n eurogenic claudication PAIN MANAGEMENT FOLLOW UP with EULALIA L XUAN ANP-BC 07/12/2022 Last Documented On 3 4:51PM ; [facility] Lumbar spondylosis with radiculopathy PA IN MANAGEMENT FOLLOW UP with EULALIA L XUAN ANP-BC 07/12/2022 Last Documented On 3 4:51PM ; [facility] Myalgia PAIN MANAGEMENT FOLLOW UP with T KLAUDIA L XUAN ANP-BC 07/12/2022 Last Documented On 3 4:51PM ; [facility] Sacroiliitis PAIN MANAGEMENT FOLLOW UP with T KLAUDIA L XUAN ANP-BC 07/12/2022 Last Documented On 3 4:51PM ; [facility] Subacromial bursitis on the right PAIN M ANAGEMENT FOLLOW UP with EULALIA L XUAN ANP-BC 07/12/2022 Last Documented On 3 4:51PM ; [facility] Cervical radiculopathy PAIN MANAGEMENT F OLLOW UP with EULALIA L XUAN ANP-BC 05/10/2022 Last Documented On 3 5:03PM ; [facility] Cervicalgia PAIN MANAGEMENT FOLLOW UP with T KLAUDIA L XUAN ANP-BC 05/10/2022 Last Documented On 3 5:03PM ; [facility] Chronic pain syndrome PAIN MANAGEMENT FO LLOW UP with EULALIA L XUAN ANP-BC 05/10/2022 Last Documented On 3 5:03PM ; [facility] 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 PAIN M ANAGEMENT FOLLOW UP with EULALIA L XUAN ANP-BC 05/10/2022 Last Documented On 3 5:03PM ; [facility] Lumbar canal stenosis with n eurogenic claudication PAIN MANAGEMENT FOLLOW UP with EULALIA L XUAN ANP-BC 05/10/2022 Last Documented On 3 5:03PM ; [facility] Lumbar spondylosis with radiculopathy PA IN MANAGEMENT FOLLOW UP with EULALIA L XUAN ANP-BC 05/10/2022 Last Documented On 3 5:03PM ; [facility] Myalgia PAIN MANAGEMENT FOLLOW UP with T KLAUDIA L XUAN ANP-BC 05/10/2022 Last Documented On 3 5:03PM ; [facility] Sacroiliitis PAIN MANAGEMENT FOLLOW UP with T KLAUDIA L XUAN ANP-BC 05/10/2022 Last Documented On 3 5:03PM ; [facility] Subacromial bursitis on the right PAIN M ANAGEMENT FOLLOW UP with EULALIA L XUAN ANP-BC 05/10/2022 Last Documented On 3 5:03PM ; [facility] Cervical radiculopathy PAIN MANAGEMENT F OLLOW UP with ANJU MARRUFO SHRIMP PEELER-FPA, [employer]MPER-BC 03/08/2022 Last Documented On 3 4:34PM ; [facility] Cervicalgia PAIN MANAGEMENT FOLLOW UP with Jere BELLA Lyn HERNANDEZLP SHRIMP PEELER-FPA, [employer]-BC 03/08/2022 Last Documented On 3 4:34PM ; [facility] Chronic pain syndrome PAIN MANAGEMENT FO LLOW UP with ANJU HERNANDEZLP SHRIMP PEELER-FPA, [employer]ER [employer]ER-BC 03/08/2022 Last Documented On 3 4:34PM ; [facility] 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 PAIN M ANAGEMENT FOLLOW UP with ANJU Lyn YARON SHRIMP PEELER-FPA, [employer]ER-BC 03/08/2022 Last Documented On 3 4:34PM ; [facility] Lumbar canal stenosis with n eurogenic claudication PAIN MANAGEMENT FOLLOW UP with ANJU MARRUFO SHRIMP PEELER-FPA, B[employer]ER [employer]ER-BC 03/08/2022 Last Documented On 3 4:34PM ; [facility] Lumbar spondylosis with radiculopathy PA IN MANAGEMENT FOLLOW UP with ANJU MARRUFO SHRIMP PEELER-FPA, [employer]ER-BC 03/08/2022 Last Documented On 3 4:34PM ; [facility] Myalgia PAIN MANAGEMENT FOLLOW UP with Jere BELLA Lyn MARRUFO SHRIMP PEELER-FPA, [employer]-BC 03/08/2022 Last Documented On 3 4:34PM ; [facility] Sacroiliitis PAIN MANAGEMENT FOLL OW UP with ANJU HERNANDEZLP SHRIMP PEELER-FPA, B[employer]ISHER [employer]MPER-BC 03/08/2022 Last Documented On 3 4:34PM ; [facility] Subacromial bursitis on the right PAIN M ANAGEMENT FOLLOW UP with ANJU HERNANDEZLP SHRIMP PEELER-FPA, BURN[employer]ER AND BU[employer]ER-BC 03/08/2022 Last Documented On 3 4:34PM ; [facility] Cervical radiculopathy * PHONE CALL with EULALIA GOVEA [facility] 02/15/2022 Last Documented On 2 3:24PM ; [facility] Cervical spine stenosis * PHONE CALL with EULALIA L XUAN ANP- 02/15/2022 Last Documented On 2 3:24PM ; [facility] Chronic pain syndrome * PHONE CALL with EULALIA L XUAN ANP-BC 02/15/2022 Last Documented On 2 3:24PM ; [facility] 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 * PHON E CALL with EULALIA L XUAN ANP- 02/15/2022 Last Documented On 2 3:24PM ; [facility] Myalgia * PHONE CALL with EULALIA L BLEVI NS ANP- 02/15/2022 Last Documented On 2 3:24PM ; [facility] Cervical radiculopathy PAIN MANAGEMENT F OLLOW UP with EULALIA L XUAN [facility]- 01/26/2022 Last Documented On 2 10:46AM ; [facility] Chronic pain syndrome PAIN MANAGEMENT FO LLOW UP with EULALIA L XUAN ANP- 01/26/2022 Last Documented On 2 10:46AM ; [facility] [facility] 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 PAIN M ANAGEMENT FOLLOW UP with EULALIA L XUAN ANP- 01/26/2022 Last Documented On 2 10:46AM ; [facility] Lumbar canal stenosis with n eurogenic claudication PAIN MANAGEMENT FOLLOW UP with EULALIA L XUAN ANP- 01/26/2022 Last Documented On 2 10:46AM ; [facility] Lumbar spondylosis with radiculopathy PA IN MANAGEMENT FOLLOW UP with EULALIA L XUAN ANP- 01/26/2022 Last Documented On 2 10:46AM ; [facility] Myalgia PAIN MANAGEMENT FOLLOW UP with T KLAUDIA L XUAN ANP-BC 01/26/2022 Last Documented On 2 10:46AM ; [facility] Sacroiliitis PAIN MANAGEMENT FOLLOW UP with T KLAUDIA L XUAN ANP-BC 01/26/2022 Last Documented On 2 10:46AM ; [facility] Subacromial bursitis on the right PAIN M ANAGEMENT FOLLOW UP with EULALIA L XUAN ANP-BC 01/26/2022 Last Documented On 2 10:46AM ; [facility] Chronic pain syndrome PAIN MANAGEMENT FO LLOW UP with EULALIA L XUAN ANP-BC 12/30/2021 Last Documented On 2 5:16PM ; [facility] 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 PAIN M ANAGEMENT FOLLOW UP with EULALIA L XUAN ANP-BC 12/30/2021 Last Documented On 2 5:16PM ; [facility] Lumbar canal stenosis with n eurogenic claudication PAIN MANAGEMENT FOLLOW UP with EULALIA L XUAN ANP-BC 12/30/2021 Last Documented On 2 5:16PM ; [facility] Lumbar spondylosis with radiculopathy PA IN MANAGEMENT FOLLOW UP with EULALIA L XUAN ANP-BC 12/30/2021 Last Documented On 2 5:16PM ; [facility] Myalgia PAIN MANAGEMENT FOLLOW UP with T KLAUDIA L XUAN ANP-BC 12/30/2021 Last Documented On 2 5:16PM ; [facility] Sacroiliitis PAIN MANAGEMENT FOLLOW UP with T KLAUDIA L XUAN ANP-BC 12/30/2021 Last Documented On 2 5:16PM ; [facility] Subacromial bursitis on the right PAIN M ANAGEMENT FOLLOW UP with EULALIA L XUAN ANP-BC 12/30/2021 Last Documented On 2 5:16PM ; [facility] Chronic pain syndrome PAIN MANAGEMENT FO LLOW UP with EULALIA L XUAN ANP-BC 10/13/2021 Last Documented On 2 11:01AM ; [facility] 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 PAIN M ANAGEMENT FOLLOW UP with EULALIA L XUAN ANP-BC 10/13/2021 Last Documented On 2 11:01AM ; [facility] Lumbar canal stenosis with n eurogenic claudication PAIN MANAGEMENT FOLLOW UP with EULALIA L XUAN ANP-BC 10/13/2021 Last Documented On 2 11:01AM ; [facility] Lumbar spondylosis with radiculopathy PA IN MANAGEMENT FOLLOW UP with EULALIA L XUAN ANP-BC 10/13/2021 Last Documented On 2 11:01AM ; [facility] Myalgia PAIN MANAGEMENT FOLLOW UP with T KLAUDIA L XUAN ANP-BC 10/13/2021 Last Documented On 2 11:01AM ; [facility] Sacroiliitis PAIN MANAGEMENT FOLLOW UP with T KLAUDIA L XUAN ANP-BC 10/13/2021 Last Documented On 2 11:01AM ; [facility] Subacromial bursitis on the right PAIN M ANAGEMENT FOLLOW UP with EULALIA L XUAN ANP-BC 10/13/2021 Last Documented On 2 11:01AM ; [facility] Chronic pain syndrome PAIN MANAGEMENT FO LLOW UP with EULALIA L XUAN ANP-BC 08/05/2021 Last Documented On 2 8:24AM ; [facility] longterm use of 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 PAIN M ANAGEMENT FOLLOW UP with EULALIA L XUAN ANP-BC 08/05/2021 Last Documented On 2 8:24AM ; [facility] Lumbar canal stenosis with n eurogenic claudication PAIN MANAGEMENT FOLLOW UP with EULALIA L XUAN ANP-BC 08/05/2021 Last Documented On 2 8:24AM ; [facility] Lumbar spondylosis with radiculopathy PA IN MANAGEMENT FOLLOW UP with EULALIA L XUAN ANP-BC 08/05/2021 Last Documented On 2 8:24AM ; [facility] Myalgia PAIN MANAGEMENT FOLLOW UP with T KLAUDIA L XUAN ANP-BC 08/05/2021 Last Documented On 2 8:24AM ; [facility] Sacroiliitis PAIN MANAGEMENT FOLLOW UP with T KLAUDIA L XUAN ANP-BC 08/05/2021 Last Documented On 2 8:24AM ; [facility] Subacromial bursitis on the right PAIN M ANAGEMENT FOLLOW UP with EULALIA L XUAN ANP-BC 08/05/2021 Last Documented On 2 8:24AM ; [facility] Cervical radiculopathy * PHONE CALL with EULALIA L XUAN ANP-BC 06/15/2021 Last Documented On 2 8:38AM ; [facility] Chronic pain syndrome PAIN MANAGEMENT FO LLOW UP with EULALIA L XUAN ANP-BC 06/10/2021 Last Documented On 2 4:43PM ; [facility] longterm use of 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 PAIN M ANAGEMENT FOLLOW UP with EULALIA L XUAN ANP-BC 06/10/2021 Last Documented On 2 4:43PM ; [facility] Lumbar canal stenosis with n eurogenic claudication PAIN MANAGEMENT FOLLOW UP with EULALIA L XUAN ANP-BC 06/10/2021 Last Documented On 2 4:43PM ; [facility] Lumbar spondylosis with radiculopathy PA IN MANAGEMENT FOLLOW UP with EULALIA L XUAN ANP-BC 06/10/2021 Last Documented On 2 4:43PM ; [facility] Myalgia PAIN MANAGEMENT FOLLOW UP with T KLAUDIA L XUAN ANP-BC 06/10/2021 Last Documented On 2 4:43PM ; [facility] Sacroiliitis PAIN MANAGEMENT FOLLOW UP with T KLAUDIA L XUAN ANP-BC 06/10/2021 Last Documented On 2 4:43PM ; [facility] Subacromial bursitis on the right PAIN M ANAGEMENT FOLLOW UP with EULALIA L XUAN ANP-BC 06/10/2021 Last Documented On 2 4:43PM ; [facility] Chronic pain syndrome PAIN MANAGEMENT FO LLOW UP with EULALIA L XUAN ANP-BC 03/16/2021 Last Documented On 2 2:21PM ; [facility] longterm use of 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 PAIN M ANAGEMENT FOLLOW UP with EULALIA L XUAN ANP-BC 03/16/2021 Last Documented On 2 2:21PM ; [facility] Lumbar canal stenosis with n eurogenic claudication PAIN MANAGEMENT FOLLOW UP with EULALIA L XUAN ANP-BC 03/16/2021 Last Documented On 2 2:21PM ; [facility] Lumbar spondylosis with radiculopathy PA IN MANAGEMENT FOLLOW UP with EULALIA L XUAN ANP-BC 03/16/2021 Last Documented On 2 2:21PM ; [facility] Myalgia PAIN MANAGEMENT FOLLOW UP with T KLAUDIA L XUAN ANP-BC 03/16/2021 Last Documented On 2 2:21PM ; [facility] Sacroiliitis PAIN MANAGEMENT FOLLOW UP with T KLAUDIA L XUAN ANP-BC 03/16/2021 Last Documented On 2 2:21PM ; [facility] Arthralgia of the left knee/patella/tibia/fibula PAIN MANAGEMENT FOLLOW UP with EULALIA L XUAN ANP-BC 02/17/2021 Last Documented On 1 5:05PM ; [facility] Arthralgia of the right knee/patella/tibia/fibula PAIN MANAGEMENT FOLLOW UP with EULALIA L XUAN ANP-BC 02/17/2021 Last Documented On 1 5:05PM ; [facility] Chronic pain syndrome PAIN MANAGEMENT FO LLOW UP with EULALIA L XUAN ANP-BC 02/17/2021 Last Documented On 1 5:05PM ; [facility] Left Hip pain PAIN MANAGEMENT FOLLOW UP with T KLAUDIA L XUAN ANP-BC 02/17/2021 Last Documented On 1 5:05PM ; [facility] longterm use of 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 PAIN M ANAGEMENT FOLLOW UP with EULALIA L XUAN ANP-BC 02/17/2021 Last Documented On 1 5:05PM ; [facility] Lumbar canal stenosis with n eurogenic claudication PAIN MANAGEMENT FOLLOW UP with EULALIA L XUAN ANP-BC 02/17/2021 Last Documented On 1 5:05PM ; [facility] Lumbar spondylosis with radiculopathy PA IN MANAGEMENT FOLLOW UP with EULALIA L XUAN ANP-BC 02/17/2021 Last Documented On 1 5:05PM ; [facility] Myalgia PAIN MANAGEMENT FOLLOW UP with T KLAUDIA L XUAN ANP-BC 02/17/2021 Last Documented On 1 5:05PM ; [facility] Right hip pain PAIN MANAGEMENT FOLLOW UP with T KLAUDIA L XUAN ANP-BC 02/17/2021 Last Documented On 1 5:05PM ; [facility] Sacroiliitis PAIN MANAGEMENT FOLLOW UP with T KLAUDIA L XUAN ANP-BC 02/17/2021 Last Documented On 1 5:05PM ; [facility] Arthralgia of the left knee/patella/tibia/fibula PAIN MANAGEMENT FOLLOW UP with EULALIA L XUAN ANP-BC 01/21/2021 Last Documented On 1 3:08PM ; [facility] Arthralgia of the right knee/patella/tibia/fibula PAIN MANAGEMENT FOLLOW UP with EULALIA L XUAN ANP-BC 01/21/2021 Last Documented On 1 3:08PM ; [facility] Chronic pain syndrome PAIN MANAGEMENT FO LLOW UP with EULALIA L XUAN ANP-BC 01/21/2021 Last Documented On 1 3:08PM ; [facility] Left Hip pain PAIN MANAGEMENT FOLLOW UP with T KLAUDIA L XUAN ANP-BC 01/21/2021 Last Documented On 1 3:08PM ; [facility] 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 PAIN M ANAGEMENT FOLLOW UP with EULALIA L XUAN ANP-BC 01/21/2021 Last Documented On 1 3:08PM ; [facility] Lumbar canal stenosis with n eurogenic claudication PAIN MANAGEMENT FOLLOW UP with EULALIA L XUAN ANP-BC 01/21/2021 Last Documented On 1 3:08PM ; [facility] Lumbar spondylosis with radiculopathy PA IN MANAGEMENT FOLLOW UP with EULALIA L XUAN ANP-BC 01/21/2021 Last Documented On 1 3:08PM ; [facility] Myalgia PAIN MANAGEMENT FOLLOW UP with T KLAUDIA L XUAN ANP-BC 01/21/2021 Last Documented On 1 3:08PM ; [facility] Right hip pain PAIN MANAGEMENT FOLLOW UP with T KLAUDIA L XUAN ANP-BC 01/21/2021 Last Documented On 1 3:08PM ; [facility] Sacroiliitis PAIN MANAGEMENT FOLLOW UP with T KLAUDIA L XUAN ANP-BC 01/21/2021 Last Documented On 1 3:08PM ; [facility] Arthralgia of the left knee/patella/tibia/fibula PAIN MANAGEMENT FOLLOW UP with EULALIA L XUAN ANP-BC 10/08/2020 Last Documented On 1 4:25PM ; [facility] Arthralgia of the right knee/patella/tibia/fibula PAIN MANAGEMENT FOLLOW UP with EULALIA L XUAN ANP-BC 10/08/2020 Last Documented On 1 4:25PM ; [facility] Chronic pain syndrome PAIN MANAGEMENT FO LLOW UP with EULALIA L XUAN ANP-BC 10/08/2020 Last Documented On 1 4:25PM ; [facility] Left Hip pain PAIN MANAGEMENT FOLLOW UP with T KLAUDIA L XUAN ANP-BC 10/08/2020 Last Documented On 1 4:25PM ; [facility] 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 PAIN M ANAGEMENT FOLLOW UP with EULALIA L XUAN ANP-BC 10/08/2020 Last Documented On 1 4:25PM ; [facility] Lumbar canal stenosis with n eurogenic claudication PAIN MANAGEMENT FOLLOW UP with EULALIA L XUAN ANP-BC 10/08/2020 Last Documented On 1 4:25PM ; [facility] Lumbar spondylosis with radiculopathy PA IN MANAGEMENT FOLLOW UP with EULALIA L XUAN ANP-BC 10/08/2020 Last Documented On 1 4:25PM ; [facility] Myalgia PAIN MANAGEMENT FOLLOW UP with T KLAUDIA L XUAN ANP-BC 10/08/2020 Last Documented On 1 4:25PM ; [facility] Right hip pain PAIN MANAGEMENT FOLLOW UP with T KLAUDIA L XUAN ANP- 10/08/2020 Last Documented On 1 4:25PM ; [facility] Sacroiliitis PAIN MANAGEMENT FOLLOW UP with T KLAUDIA L XUAN ANP- 10/08/2020 Last Documented On 1 4:25PM ; [facility] Chronic pain syndrome TELEHEALTH with EULALIA Rex [facility]DE [facility] 09/08/2020 Last Documented On 1 8:34AM ; [facility] 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 TELEHEALTH wit h EULALIA L XUAN ANP- 09/08/2020 Last Documented On 1 8:34AM ; [facility] Lumbar canal stenosis with n eurogenic claudication TELEHEALTH with EULALIA L XUAN [facility]- 09/08/2020 Last Documented On 1 8:34AM ; [facility] Lumbar spondylosis with radiculopathy TE LEHEALTH with EULALIA L XUAN [facility] 09/08/2020 Last Documented On 1 8:34AM ; [facility] Myalgia TELEHEALTH with EULALIA L XUAN ANP- 09/08/2020 Last Documented On 1 8:34AM ; [facility] Sacroiliitis TELEHEALTH with EULALIA L XUAN [facility]- 09/08/2020 Last Documented On 1 8:34AM ; [facility] Chronic pain syndrome PAIN MANAGEMENT FO LLOW UP with EULALIA L XUAN ANP- 07/09/2020 Last Documented On 1 8:31AM ; [facility] 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 PAIN M ANAGEMENT FOLLOW UP with EULALIA L XUAN ANP- 07/09/2020 Last Documented On 1 8:31AM ; [facility] Lumbar canal stenosis with n eurogenic claudication PAIN MANAGEMENT FOLLOW UP with EULALIA L XUAN ANP-BC 07/09/2020 Last Documented On 1 8:31AM ; [facility] Lumbar spondylosis with radiculopathy PA IN MANAGEMENT FOLLOW UP with EULALIA L XUAN ANP-BC 07/09/2020 Last Documented On 1 8:31AM ; [facility] Myalgia PAIN MANAGEMENT FOLLOW UP with T KLAUDIA L XUAN ANP-BC 07/09/2020 Last Documented On 1 8:31AM ; [facility] Sacroiliitis PAIN MANAGEMENT FOLLOW UP with T KLAUDIA L XUAN ANP-BC 07/09/2020 Last Documented On 1 8:31AM ; [facility] Chronic pain syndrome PAIN MANAGEMENT FO LLOW UP with EULALIA L XUAN ANP-BC 05/26/2020 Last Documented On 1 10:52PM ; [facility] 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 PAIN M ANAGEMENT FOLLOW UP with EULALIA L XUAN ANP-BC 05/26/2020 Last Documented On 1 10:52PM ; [facility] Lumbar canal stenosis with n eurogenic claudication PAIN MANAGEMENT FOLLOW UP with EULALIA L XUAN ANP-BC 05/26/2020 Last Documented On 1 10:52PM ; [facility] Lumbar spondylosis with radiculopathy PA IN MANAGEMENT FOLLOW UP with EULALIA L XUAN ANP-BC 05/26/2020 Last Documented On 1 10:52PM ; [facility] Myalgia PAIN MANAGEMENT FOLLOW UP with T KLAUDIA L XUAN ANP-BC 05/26/2020 Last Documented On 1 10:52PM ; [facility] Sacroiliitis PAIN MANAGEMENT FOLLOW UP with T KLAUDIA L XUAN ANP-BC 05/26/2020 Last Documented On 1 10:52PM ; [facility] Chronic pain syndrome PAIN MANAGEMENT FO LLOW UP with EULALIA L XUAN ANP-BC 03/11/2020 Last Documented On 1 4:12PM ; [facility] Fibromyalgia PAIN MANAGEMENT FOLLOW UP with T KLAUDIA L XUAN ANP-BC 03/11/2020 Last Documented On 1 4:12PM ; [facility] 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 PAIN M ANAGEMENT FOLLOW UP with EULALIA L XUAN ANP-BC 03/11/2020 Last Documented On 1 4:12PM ; [facility] Lumbar canal stenosis with n eurogenic claudication PAIN MANAGEMENT FOLLOW UP with EULALIA L XUAN ANP-BC 03/11/2020 Last Documented On 1 4:12PM ; [facility] Lumbar postlaminectomy syndrome PAIN MAN AGEMENT FOLLOW UP with EULALIA L XUAN ANP-BC 03/11/2020 Last Documented On 1 4:12PM ; [facility] Lumbar spondylosis with radiculopathy PA IN MANAGEMENT FOLLOW UP with EULALIA L XUAN ANP-BC 03/11/2020 Last Documented On 1 4:12PM ; [facility] Sacroiliitis PAIN MANAGEMENT FOLLOW UP with T KLAUDIA L XUAN ANP-BC 03/11/2020 Last Documented On 1 4:12PM ; [facility] Chronic pain syndrome TELEHEALTH with EULALIA L B BARRETT ANP-BC 01/28/2020 Last Documented On 0 9:27AM ; [facility] longterm use of 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 TELEHEALTH wit h EULALIA L XUAN ANP-BC 01/28/2020 Last Documented On 0 9:27AM ; [facility] Lumbar canal stenosis with n eurogenic claudication TELEHEALTH with EULALIA L XUAN ANP-BC 01/28/2020 Last Documented On 0 9:27AM ; [facility] Lumbar postlaminectomy syndrome TELEHEALTH with EULALIA L XUAN ANP-BC 01/28/2020 Last Documented On 0 9:27AM ; [facility] Chronic pain syndrome PAIN MANAGEMENT FO LLOW UP with EULALIA L XUAN ANP-BC 01/06/2020 Last Documented On 0 10:17AM ; [facility] Fibromyalgia PAIN MANAGEMENT FOLLOW UP with T KLAUDIA L XUAN ANP-BC 01/06/2020 Last Documented On 0 10:17AM ; [facility] 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 PAIN M ANAGEMENT FOLLOW UP with EULALIA L XUAN ANP-BC 01/06/2020 Last Documented On 0 10:17AM ; [facility] Lumbar canal stenosis with n eurogenic claudication PAIN MANAGEMENT FOLLOW UP with EULALIA L XUAN ANP-BC 01/06/2020 Last Documented On 0 10:17AM ; [facility] Lumbar postlaminectomy syndrome PAIN MAN AGEMENT FOLLOW UP with EULALIA L XUAN ANP-BC 01/06/2020 Last Documented On 0 10:17AM ; [facility] Lumbar spondylosis with radiculopathy PA IN MANAGEMENT FOLLOW UP with EULALIA L XUAN ANP-BC 01/06/2020 Last Documented On 0 10:17AM ; [facility] Sacroiliitis PAIN MANAGEMENT FOLLOW UP with T KLAUDIA L XUAN ANP-BC 01/06/2020 Last Documented On 0 10:17AM ; [facility] Chronic pain syndrome PAIN MANAGEMENT FO LLOW UP with EULALIA L XUAN ANP- 12/12/2019 Last Documented On 0 10:03AM ; [facility] Fibromyalgia PAIN MANAGEMENT FOLLOW UP with T KLAUDIA L XUAN ANP- 12/12/2019 Last Documented On 0 10:03AM ; [facility] 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 PAIN M ANAGEMENT FOLLOW UP with EULALIA L XUAN ANP- 12/12/2019 Last Documented On 0 10:03AM ; [facility] Lumbar postlaminectomy syndrome PAIN MAN AGEMENT FOLLOW UP with EULALIA L XUAN ANP- 12/12/2019 Last Documented On 0 10:03AM ; [facility] Lumbar radiculopathy PAIN MANAGEMENT FOL LOW UP with EULALIA L XUAN ANP-BC 12/12/2019 Last Documented On 0 10:03AM ; [facility] Lumbar spondylosis with radiculopathy PA IN MANAGEMENT FOLLOW UP with EULALIA L XUAN ANP-BC 12/12/2019 Last Documented On 0 10:03AM ; [facility] Sacroiliitis PAIN MANAGEMENT FOLLOW UP with T KLAUDIA L XUAN ANP-BC 12/12/2019 Last Documented On 0 10:03AM ; [facility] Chronic pain syndrome PAIN MANAGEMENT FO [facility] Last Documented On 0 9:28AM ; [facility] Fibromyalgia PAIN MANAGEMENT FOLLOW UP with T KLAUDIA L XUAN [facility] 11/18/2019 Last Documented On 0 9:28AM ; [facility] longterm use of 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 PAIN M ANAGEMENT FOLLOW UP with EULALIA L XUAN [facility] 11/18/2019 Last Documented On 0 9:28AM ; [facility] Lumbar postlaminectomy syndrome PAIN MAN AGEMENT FOLLOW UP with EULALIA L XUAN [facility] 11/18/2019 Last Documented On 0 9:28AM ; [facility] Lumbar radiculopathy PAIN MANAGEMENT FOL LOW UP with EULALIA L XUAN [facility] 11/18/2019 Last Documented On 0 9:28AM ; [facility] Sacroiliitis PAIN MANAGEMENT FOLLOW UP with T KLAUDIA L XUAN [facility] 11/18/2019 Last Documented On 0 9:28AM ; [facility] Chronic pain syndrome PAIN MANAGEMENT FO LLOW UP with EULALIA L XUAN [facility] 10/16/2019 Last Documented On 0 1:07PM ; [facility] Fibromyalgia PAIN MANAGEMENT FOLLOW UP with T KLAUDIA L XUAN [facility] 10/16/2019 Last Documented On 0 1:07PM ; [facility] Lateral epicondylitis of left elbow PAIN MANAGEMENT FOLLOW UP with EULALIA L XUAN [facility] 10/16/2019 Last Documented On 0 1:07PM ; [facility] longterm use of 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 PAIN M ANAGEMENT FOLLOW UP with EULALIA L XUAN [facility] 10/16/2019 Last Documented On 0 1:07PM ; [facility] Lumbar postlaminectomy syndrome PAIN MAN AGEMENT FOLLOW UP with EULALIA L XUAN [facility] 10/16/2019 Last Documented On 0 1:07PM ; [facility] Lumbar radiculopathy PAIN MANAGEMENT FOL LOW UP with EULALIA L XUAN ANP- 10/16/2019 Last Documented On 0 1:07PM ; [facility] Sacroiliitis PAIN MANAGEMENT FOLLOW UP with T KLAUDIA L XUAN ANP-BC 10/16/2019 Last Documented On 0 1:07PM ; [facility] Chronic pain syndrome PAIN MANAGEMENT FO LLOW UP with EULALIA L XUAN [facility]- 09/10/2019 Last Documented On 0 9:35AM ; [facility] Fibromyalgia PAIN MANAGEMENT FOLLOW UP with T KLAUDIA L XUAN [facility] 09/10/2019 Last Documented On 0 9:35AM ; [facility] Lateral epicondylitis of left elbow PAIN MANAGEMENT FOLLOW UP with EULALIA L XUAN [facility]- 09/10/2019 Last Documented On 0 9:35AM ; [facility] 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 PAIN M ANAGEMENT FOLLOW UP with EULALIA L XUAN [facility] 09/10/2019 Last Documented On 0 9:35AM ; [facility] Lumbar postlaminectomy syndrome PAIN MAN AGEMENT FOLLOW UP with EULALIA L XUAN [facility] 09/10/2019 Last Documented On 0 9:35AM ; [facility] Sacroiliitis PAIN MANAGEMENT FOLLOW UP with T KLAUDIA L XUAN [facility] 09/10/2019 Last Documented On 0 9:35AM ; [facility] Chronic pain syndrome TELEHEALTH with EULALIA L B BARRETT [facility] 07/11/2019 Last Documented On 0 10:07AM ; [facility] Fibromyalgia TELEHEALTH with EULALIA L XUAN [facility] 07/11/2019 Last Documented On 0 10:07AM ; [facility] General appearance: normal TELEHEALTH with NATASHA E L [facility] 07/11/2019 Last Documented On 0 10:07AM ; [facility] Lateral epicondylitis of left elbow TELE HEALTH with EULALIA L XUAN [facility] 07/11/2019 Last Documented On 0 10:07AM ; [facility] Lumbar postlaminectomy syndrome TELEHEALTH with EULALIA L XUAN [facility] 07/11/2019 Last Documented On 0 10:07AM ; [facility] Sacroiliitis TELEHEALTH with EULALIA L XUAN [facility] 07/11/2019 Last Documented On 0 10:07AM ; [facility] Chronic pain syndrome PAIN MANAGEMENT FO LLOW UP with EULALIA L XUAN [facility] 05/02/2019 Last Documented On 0 12:25PM ; [facility] Fibromyalgia PAIN MANAGEMENT FOLLOW UP with T KLAUDIA L XUAN [facility] 05/02/2019 Last Documented On 0 12:25PM ; [facility] Lateral epicondylitis of left elbow PAIN MANAGEMENT FOLLOW UP with EULALIA L XUAN [facility] 05/02/2019 Last Documented On 0 12:25PM ; [facility] Lumbar postlaminectomy syndrome PAIN MAN AGEMENT FOLLOW UP with EULALIA L XUAN [facility] 05/02/2019 Last Documented On 0 12:25PM ; [facility] Sacroiliitis PAIN MANAGEMENT FOLLOW UP with T KLAUDIA L XUAN [facility] 05/02/2019 Last Documented On 0 12:25PM ; [facility] Chronic pain syndrome PAIN MANAGEMENT FO LLOW UP with EULALIA L XUAN [facility] 03/20/2019 Last Documented On 0 2:36PM ; [facility] Fibromyalgia PAIN MANAGEMENT FOLLOW UP with T KLAUDIA L XUAN [facility] 03/20/2019 Last Documented On 0 2:36PM ; [facility] Lumbar postlaminectomy syndrome PAIN MAN AGEMENT FOLLOW UP with EULALIA L XUAN [facility] 03/20/2019 Last Documented On 0 2:36PM ; [facility] Sacroiliitis PAIN MANAGEMENT FOLLOW UP with T KLAUDIA L XUAN [facility] 03/20/2019 Last Documented On 0 2:36PM ; [facility] Chronic pain syndrome PAIN MANAGEMENT FO LLOW UP with EULALIA L XUAN [facility]- 01/15/2019 Last Documented On 9 10:42AM ; [facility] Fibromyalgia PAIN MANAGEMENT FOLLOW UP with T KLAUDIA L XUAN [facility]- 01/15/2019 Last Documented On 9 10:42AM ; [facility] Lumbar postlaminectomy syndrome PAIN MAN AGEMENT FOLLOW UP with EULALIA L XUAN [facility]- 01/15/2019 Last Documented On 9 10:42AM ; [facility] Sacroiliitis PAIN MANAGEMENT FOLLOW UP with T KLAUDIA L XUAN [facility]- 01/15/2019 Last Documented On 9 10:42AM ; [facility] Chronic pain syndrome PAIN MANAGEMENT NE W CONSULT with EULALIA L XUAN [facility]- 10/18/2018 Last Documented On 9 10:57AM ; [facility] Fibromyalgia PAIN MANAGEMENT NEW CONSULT with EULALIA L XUAN [facility]- 10/18/2018 Last Documented On 9 10:57AM ; [facility] Lumbar postlaminectomy syndrome PAIN MAN AGEMENT NEW CONSULT with EULALIA L XUAN [facility]- 10/18/2018 Last Documented On 9 10:57AM ; [facility] Lumbar radiculopathy PAIN MANAGEMENT NEW CONSULT with EULALIA L XUAN [facility]- 10/18/2018 Last Documented On 9 10:57AM ; [facility] Rotator cuff tendonitis -rig ht impingement syndrome PAIN MANAGEMENT NEW CONSULT with EULALIA L XUAN [facility] 10/18/2018 Last Documented On 9 10:57AM ; [facility] Sacroiliitis PAIN MANAGEMENT NEW CONSULT with EULALIA L XUAN [facility]- 10/18/2018 Last Documented On 9 10:57AM ; [facility] Instructions Includes: Instructions for all patient encounters Instructions to patient Intervention and counseling on cessation of tobacco use : Patient recieved smoking cessation handout Last Documented On 4 4:18PM ; [facility] Intervention and counseling on cessation of tobacco use : Patient recieved smoking cessation handout Last Documented On 3 3:43PM ; [facility] Intervention and counseling on cessation of tobacco use : Patient recieved smoking cessation handout Last Documented On 3 4:16PM ; [facility] Intervention and counseling on cessation of tobacco use : Patient recieved smoking cessation handout Last Documented On 3 4:08PM ; [facility] Intervention and counseling on cessation of tobacco use : Patient recieved smoking cessation handout Last Documented On 3 4:20PM ; [facility] Intervention and counseling on cessation of tobacco use : Patient recieved smoking cessation handout Last Documented On 3 4:14PM ; [facility] Intervention and counseling on cessation of tobacco use : Patient recieved smoking cessation handout Last Documented On 3 4:06PM ; [facility] Intervention and counseling on cessation of tobacco use : Patient recieved smoking cessation handout Last Documented On 2 2:43PM ; [facility] Intervention and counseling on cessation of tobacco use : Patient recieved smoking cessation handout Last Documented On 2 3:36PM ; [facility] Intervention and counseling on cessation of tobacco use : Patient recieved smoking cessation handout Last Documented On 2 4:10PM ; [facility] Intervention and counseling on cessation of tobacco use : Patient recieved smoking cessation handout Last Documented On 2 4:33PM ; [facility] Intervention and counseling on cessation of tobacco use : Patient recieved smoking cessation handout Last Documented On 2 3:33PM ; [facility] Intervention and counseling on cessation of tobacco use : Patient recieved smoking cessation handout Last Documented On 2 1:18PM ; [facility] Intervention and counseling on cessation of tobacco use : Patient recieved smoking cessation handout Last Documented On 1 4:23PM ; [facility] Intervention and counseling on cessation of tobacco use : Patient recieved smoking cessation handout Last Documented On 1 2:30PM ; [facility] Intervention and counseling on cessation of tobacco use : Patient recieved smoking cessation handout Last Documented On 1 3:46PM ; [facility] Intervention and counseling on cessation of tobacco use : Patient recieved smoking cessation handout Last Documented On 1 3:37PM ; [facility] Intervention and counseling on cessation of tobacco use : Patient recieved smoking cessation handout Last Documented On 0 8:32AM ; [facility] Intervention and counseling on cessation of tobacco use : Patient recieved smoking cessation handout Last Documented On 0 9:04AM ; [facility] Intervention and counseling on cessation of tobacco use : Patient recieved smoking cessation handout Last Documented On 0 9:38AM ; [facility] Intervention and counseling on cessation of tobacco use : Patient recieved smoking cessation handout Last Documented On 0 9:02AM ; [facility] Intervention and counseling on cessation of tobacco use : Patient recieved smoking cessation handout Last Documented On 0 3:49PM ; [facility] Intervention and counseling on cessation of tobacco use : Patient recieved smoking cessation handout Last Documented On 0 2:51PM ; [facility] Intervention and counseling on cessation of tobacco use : Patient recieved smoking cessation handout Last Documented On 0 1:17PM ; [facility] Education and Decision Aids were provided during visit for: Pill Count: nine HYDROCODONE Last Documented On 4 4:25PM ; [facility] Pill Count: 0 HYDROCODONE Last Documented On 4 4:17PM ; [facility] Pill Count: 0 Last Documented On 3 3:44PM ; [facility] Pill Count: 19 Last Documented On 3 4:22PM ; [facility] Pill Count: 45 HYDROCODONE-P T STATES SHE HAS #45 Last Documented On 3 3:34PM ; [facility] Pill Count: 13 HYDROCODONE Last Documented On 3 4:14PM ; [facility] Pill Count: 23 HYDROCODONE Last Documented On 2 2:52PM ; [facility] Pill Count: 19 HYDROCODONE Last Documented On 2 3:50PM ; [facility] Pill Count: 75 HYDROCODONE Last Documented On 2 4:18PM ; [facility] Pill Count: 0 HYDROCODONE PT IS OUT OF MEDICATION Last Documented On 2 4:42PM ; [facility] Pill Count: HYDROCODONE Last Documented On 2 3:33PM ; [facility] Pill Count: Patient did not bring pain medication to appointment for pill count, per policy. Advised in order to continue to safely prescribe opioids, medication must be brought to each appointment. PT STATES THAT SHE IS OUT OF MEDICATION Last Documented On 2 3:59PM ; [facility] Pill Count: HYDROCODONE Last Documented On 2 1:34PM ; [facility] Pill Count: seven HYDROCODON E Last Documented On 1 4:32PM ; [facility] Pill Count: PT HAS BEEN OUT OF MEDICATION FOR 3 WEEKS Last Documented On 1 2:36PM ; [facility] Medication # 1 Quantity: six Last Documented On 1 10:21AM ; [facility] Medication # 1 Quantity expe cted: Last Documented On 1 10:21AM ; [facility] Date and time Medication # 1 last taken: 11/26/2020 Last Documented On 1 10:21AM ; [facility] Name of Medication # 1: HYDR OCODONE-ACETAMINOPHEN 10-325 Last Documented On 1 10:34AM ; [facility] Medication # 1 Pill Descript ion: WHITE, OVAL Last Documented On 1 10:21AM ; [facility] Medication # 1 Imprint: [id number] Last Documented On 1 10:21AM ; [facility] Date on medication # 1 bottl e: 11/23/2020 Last Documented On 1 10:21AM ; [facility] Pill Counter initials: KMS Last Documented On 1 10:21AM ; [facility] No Pill Count: three Appropr iate Last Documented On 1 3:46PM ; [facility] Pill Count: two Not Appropri ate patient gave me the count, This was a telehealth appt Last Documented On 1 4:49PM ; [facility] No Pill Count: 7.5 Appropria te Last Documented On 1 4:31PM ; [facility] Pill Count: 19.5 Appropriate Last Documented On 1 10:49PM ; [facility] Pill Count: Patient did not bring pain medication to appointment for pill count, per policy. Advised in order to continue to safely prescribe opioids, medication must be brought to each appointment Last Documented On 1 3:36PM ; [facility] Pill Count: Patient did not bring pain medication to appointment for pill count, per policy. Advised in order to continue to safely prescribe opioids, medication must be brought to each appointment Last Documented On 0 8:32AM ; [facility] Pill Count: six Appropriate Last Documented On 0 10:08AM ; [facility] Pill Count: three Appropriat e Last Documented On 0 10:00AM ; [facility] Pill Count: 40 Appropriate Last Documented On 0 9:27AM ; [facility] Pill Count: Patient did not bring pain medication to appointment for pill count, per policy. Advised in order to continue to safely prescribe opioids, medication must be brought to each appointment Last Documented On 0 1:49PM ; [facility] Pill Count: 0 Not Appropriat e Last Documented On 0 3:55PM ; [facility] Pill Count: four Appropriate pt counted Last Documented On 0 10:03AM ; [facility] Pill Count: Patient did not bring pain medication to appointment for pill count, per policy. Advised in order to continue to safely prescribe opioids, medication must be brought to each appointment Last Documented On 0 2:56PM ; [facility] Medical Equipment - Implanted Devices Includes: Current and historical Devices No Medical Equipment Recorded Medications Includes: Current and historical Medications Current Medications (continue as prescribed) HYDROcodone-Acetaminophen 7. 5-325 MG Oral Tablet 04/17/2023 Provider: EULALIA ISABEL Diagnosis: Other spondylosi s with radiculopathy, lumbar region 1 BY MOUTH TWICE DAILY NEEDED Last Documented On 4 8:11AM By EULALIA ISABEL ; [facility] Cyclobenzaprine HCl 5 MG Oral Tablet 04/11/2023 [facility]: ONE (1) TO TWO (2) BY MOUTH EVERY NIGHT AT BEDTIME NEEDED Last Documented On 4 10:49AM By EULALIA GOVEA [facility] ; [facility] Pregabalin 100 MG Oral Capsule 02/20/2023 Provider: EULALIA MARIE [facility] Diagnosis: Chronic pain syn drome 1 CAPSULE TWO TIMES A DAY Last Documented On 1:55PM By EULALIA GOVEA [facility] ; [facility] FLUoxetine HCl 20 MG Oral Capsule 09/26/2022 Provide r: LB DENIS NP Diagnosis: Last Documented On 10/06/2022 4:20PM By Vilma BENTON ; [facility] Levothyroxine Sodium 88 MCG Oral Tablet 07/25/2022 P nikkider: Diagnosis: Last Documented On 07/28/2022 4:14PM By Vilma BENTON ; [facility] Losartan Potassium 50 MG Oral Tablet 07/18/2022 Prov ider: WALESKA GOYAL MD Diagnosis: Last Documented On 07/28/2022 4:15PM By Vilma BENTON ; [facility] buPROPion HCl ER (XL) 300 MG Oral Tablet Extended Release 24 Hour 07/12/2022 Provider: WALESKA GOYAL MD Diagnosis: Last Documented On 07/28/2022 4:13PM By Vilma BENTON ; [facility] Amphetamine-Dextroamphet ER 20 MG Oral Capsule Extended Release 24 Hour 07/11/2022 Provider: WALESKA GOYAL MD Diagnosis: Last Documented On 07/28/2022 4:16PM By Vilma BENTON ; [facility] Ondansetron HCl 4 MG Oral Tablet 07/07/2022 Provider : WALESKA GOYAL MD Diagnosis: Last Documented On 07/12/2022 4:27PM By Vilma BENTON ; [facility] Desvenlafaxine Succinate ER 100 MG Oral Tablet Extended Release 24 Hour 07/01/2022 Provider: WALESKA GOYAL MD Diagnosis: Last Documented On 07/28/2022 4:14PM By Vilma BENTON ; [facility] Pantoprazole Sodium 40 MG Or al Tablet Delayed Release 06/15/2022 Provider: WALESKA GOYAL MD Diagnosis: Last Documented On 07/12/2022 4:28PM By Vilma BENTON ; [facility] Narcan 4 MG/0.1ML Nasal Liquid 08/06/2020 Provider: EULALIA HERNÁNDEZ Diagnosis: equipment [employer] (curre nt) use of 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 as directed Last Documented On 3 4:33PM By ANJU MARRUFO [employer] ; [facility] Past Medications on file HYDROcodone-Acetaminophen 7. 5-325 MG Oral Tablet 03/14/2023 - 04/17/2023 Provider: EULALIA ISABEL Diagnosis: Other spondylosi s with radiculopathy, lumbar region 1 po bid prn Last Documented On 4 8:11AM By EULALIA ISABEL ; [facility] Cyclobenzaprine HCl 5 MG Ora l Tablet 03/08/2023 - 04/11/2023 Provider: EULALIA ISABEL Diagnosis: 1-2 po qhs prn Last Documented On 4 10:49AM By EULALIA ISABEL ; [facility] HYDROcodone-Acetaminophen 7. 5-325 MG Oral Tablet 02/20/2023 - 03/14/2023 Provider: EULALIA ISABEL Diagnosis: Other spondylosi s with radiculopathy, lumbar region 1 po bid prn Last Documented On 4 4:36PM By EULALIA ISABEL ; [facility] HYDROcodone-Acetaminophen 7. 5-325 MG Oral Tablet 02/07/2023 - 02/20/2023 Provider: EULALIA ISABEL Diagnosis: Other spondylosi s with radiculopathy, lumbar region 1 po bid prn Last Documented On 3 1:50PM By EULALIA ISABEL ; [facility] Pregabalin 100 MG Oral Capsule 11/24/2022 - 02/20/2023 Provider: EULALIA ISABEL Diagnosis: Chronic pain syn drome 1 CAPSULE TWO TIMES A DAY Last Documented On 3 1:51PM By EULALIA ISABEL ; [facility] Pregabalin 100 MG Oral Capsule 10/31/2022 - 11/24/2022 Provider: EULALIA ISABEL Diagnosis: Chronic pain syn drome 1 CAPSULE TWO TIMES A DAY Last Documented On 3 2:24PM By EULALIA ISABEL ; [facility] Pregabalin 100 MG Oral Capsule 10/31/2022 - 10/31/2022 Provider: EULALIA ISABEL Diagnosis: Chronic pain syn drome 1 CAPSULE TWO TIMES A DAY Last Documented On 3 3:42PM By EULALIA ISABEL ; [facility] HYDROcodone-Acetaminophen 7. 5-325 MG Oral Tablet 10/26/2022 - 02/07/2023 Provider: EULALIA ISABEL Diagnosis: Other spondylosi s with radiculopathy, lumbar region 1 po daily for severe pain, Last Documented On 3 3:54PM By EULALIA ISABEL ; [facility] HYDROcodone-Acetaminophen 7. 5-325 MG Oral Tablet 09/07/2022 - 10/26/2022 Provider: EULALIA ISABEL Diagnosis: Other spondylosi s with radiculopathy, lumbar region 1 po daily for severe pain, may use an additional pill prn temporarily. this is a 30 day rx Last Documented On 3 12:25PM By EULALIA ISABEL ; [facility] HYDROcodone-Acetaminophen 7. 5-325 MG Oral Tablet 08/08/2022 - 09/07/2022 Provider: EULALIA ISABEL Diagnosis: Other spondylosi s with radiculopathy, lumbar region 1 po daily for severe pain, may use an additional pill prn temporarily. this is a 30 day rx Last Documented On 3 10:41AM By EULALIA ISABEL ; [facility] HYDROcodone-Acetaminophen 7. 5-325 MG Oral Tablet 07/12/2022 - 08/08/2022 Provider: EULALIA ISABEL Diagnosis: Other spondylosi s with radiculopathy, lumbar region 1 po daily for severe pain Last Documented On 4:39PM By EULALIA ISABEL ; [facility] Pregabalin 150 MG Oral Capsule 07/12/2022 - 02/07/2023 Provider: EULALIA ISABEL Diagnosis: Other spondylosi s with radiculopathy, lumbar region 1 CAPSULE TWO TIMES A DAY Last Documented On 02/07/2023 3:46PM By Vilma BENTON ; [facility] HYDROcodone-Acetaminophen 7. 5-325 MG Oral Tablet 07/12/2022 - 07/28/2022 Provider: EULALIA ISABEL Diagnosis: Other spondylosi s with radiculopathy, lumbar region 1 po daily prn for severe pain Last Documented On 07/28/2022 4:13PM By Vilma BENTON ; [facility] predniSONE 10 MG Oral Tablet 05/31/2022 - 07/12/2022 Provider: EULALIA ISABEL Diagnosis: as directed 3 po daily x 3 d ays, 2 po daily times 3 days, 1 po daily x 3 days and stop Last Documented On 07/12/2022 4:27PM By Vilma BENTON ; [facility] Tamsulosin HCl 0.4 MG Oral Capsule 05/30/2022 - 2022 Provider: WALESKA GOYAL MD Diagnosis: Last Documented On 10/06/2022 4:20PM By Vilma BENTON ; [facility] Pregabalin 150 MG Oral Capsule 05/10/2022 - 07/12/2022 Provider: EULALIA ISABEL Diagnosis: Other spondylosi s with radiculopathy, lumbar region 1 CAPSULE TWO TIMES A DAY Last Documented On 4:41PM By EULALIA ISABEL ; [facility] Pregabalin 200 MG Oral Capsule 05/10/2022 - 07/12/2022 Provider: EULALIA ISABEL Diagnosis: Other spondylosi s with radiculopathy, lumbar region 1 CAPSULE TWO TIMES A DAY Last Documented On 07/12/2022 4:27PM By Vilma BENTON ; [facility] HYDROcodone-Acetaminophen 7. 5-325 MG Oral Tablet 05/10/2022 - 07/12/2022 Provider: EULALIA ISABEL Diagnosis: Other spondylosi s with radiculopathy, lumbar region 1 po daily prn for severe pain Last Documented On 3 4:41PM By EULALIA ISABEL ; [facility] Pregabalin 225 MG Oral Capsule 04/27/2022 - 07/12/2022 Provider: SON NO Diagnosis: Spinal stenosis, lumbar region with neurogenic claudication TAKE ONE CAPSULE BY MOUTH TWO TIMES a DAY Last Documented On 07/12/2022 4:27PM By Vilma BENTON ; [facility] Ozempic (0.25 or 0.5 MG/DOSE ) 2 MG/1.5ML Subcutaneous Solution Pen-injector 04/15/2022 - 07/28/2022 Provider: WALESKA GOYAL MD Diagnosis: Last Documented On 07/28/2022 4:15PM By Vilma BENTON ; [facility] Pregabalin 225 MG Oral Capsule 04/02/2022 - 04/27/2022 Provider: SON NO Diagnosis: Spinal stenosis, lumbar region with neurogenic claudication TAKE ONE CAPSULE BY MOUTH TWO TIMES a DAY Last Documented On 3 4:55PM By ANJU CLINE ; [facility] HYDROcodone-Acetaminophen 7. 5-325 MG Oral Tablet 02/02/2022 - 05/10/2022 Provider: EULALIA ISABEL Diagnosis: Other spondylosi s with radiculopathy, lumbar region 1 po tid prn Last Documented On 3 4:39PM By EULALIA ISABEL ; [facility] HYDROcodone-Acetaminophen 7. 5-325 MG Oral Tablet 12/30/2021 - 02/02/2022 Provider: EULALIA ISABEL Diagnosis: Other spondylosi s with radiculopathy, lumbar region 1 po tid prn Last Documented On 2 1:06PM By EULALIA ISABEL ; [facility] Pregabalin 225 MG Oral Capsule 12/14/2021 - 03/08/2022 Provider: EULALIA ISABEL Diagnosis: Spinal stenosis, lumbar region with neurogenic claudication TAKE ONE CAPSULE BY MOUTH TWO TIMES a DAY Last Documented On 3 10:08AM By ANJU MARRUFO [facility] ; [facility] HYDROcodone-Acetaminophen 7. 5-325 MG Oral Tablet 11/30/2021 - 12/30/2021 Provider: EULALIA ISABEL Diagnosis: Other spondylosi s with radiculopathy, lumbar region 1 po tid prn Last Documented On 2 5:16PM By EULALIA ISABEL ; [facility] HYDROcodone-Acetaminophen 7. 5-325 MG Oral Tablet 11/02/2021 - 11/30/2021 Provider: EULALIA ISABEL Diagnosis: Other spondylosi s with radiculopathy, lumbar region 1 po tid prn Last Documented On 2 9:16PM By EULALIA ISABEL ; [facility] Medrol 4 MG Oral Tablet Therapy Pack 10/15/2021 - 12/30/2021 Provider: EULALIA ISABEL Diagnosis: as directed Last Documented On 2 5:14PM By EULALIA ISABEL ; [facility] Amphetamine-Dextroamphet ER 20 MG Oral Capsule Extended Release 24 Hour 10/11/2021 - 07/12/2022 Provider: CJ GOYAL MD Diagnosis: Last Documented On 07/12/2022 4:26PM By Vilma BENTON ; [facility] Rosuvastatin Calcium 20 MG Oral Tablet 10/06/2021 - Provider: WALESKA GOYAL MD Diagnosis: Last Documented On 02/07/2023 3:46PM By Vilma BENTON ; [facility] HYDROcodone-Acetaminophen 7. 5-325 MG Oral Tablet 10/01/2021 - 11/01/2021 Provider: EULALIA ISABEL Diagnosis: Other spondylosi s with radiculopathy, lumbar region 1 po tid prn Last Documented On 2 8:54AM By EULALIA ISABEL ; [facility] Pregabalin 225 MG Oral Capsule 09/20/2021 - 12/14/2021 Provider: EULALIA ISABEL Diagnosis: TAKE ONE CAPSULE BY MOUTH TWO TIMES a DAY Last Documented On 2 11:58AM By EULALIA ISABEL ; [facility] [facility] Cyclobenzaprine HCl 5 MG Ora l Tablet 09/20/2021 - 07/12/2022 Provider: EULALIA ISABEL Diagnosis: TAKE ONE OR TWO TABLETS BY [facility] THREE TIMES a DAY NEEDED Last Documented On 07/12/2022 4:26PM By Vilma BENTON ; [facility] HYDROcodone-Acetaminophen 7. 5-325 MG Oral Tablet 09/03/2021 - 10/01/2021 Provider: EULALIA ISABEL Diagnosis: Other spondylosi s with radiculopathy, lumbar region 1 po tid prn Last Documented On 2 11:11AM By EULALIA ISABEL ; [facility] Celecoxib 100 MG Oral Capsule 08/11/2021 - 05/10/2022 Provider: EULALIA ISABEL Diagnosis: TAKE ONE (1) CAPSULE BY MOUTH TWICE DAILY Last Documented On 05/10/2022 4:21PM By Vilma BENTON ; [facility] HYDROcodone-Acetaminophen 7. 5-325 MG Oral Tablet 08/05/2021 - 09/02/2021 Provider: EULALIA ISABEL Diagnosis: Other spondylosi s with radiculopathy, lumbar region 1 po tid prn Last Documented On 2 8:24AM By EULALIA ISABEL ; [facility] Pregabalin 225 MG Oral Capsule 07/28/2021 - 09/20/2021 Provider: EULALIA ISABEL Diagnosis: TAKE ONE CAPSULE BY MOUTH TWO TIMES a DAY Last Documented On 2 10:08AM By EULALIA ISABEL ; [facility] HYDROcodone-Acetaminophen 7. 5-325 MG Oral Tablet 07/19/2021 - 08/05/2021 Provider: EULALIA ISABEL Diagnosis: Other spondylosi s with radiculopathy, lumbar region 1 po tid prn Last Documented On 2 4:57PM By EULALIA ISABEL ; [facility] Celecoxib 100 MG Oral Capsule 06/18/2021 - 08/11/2021 Provider: EULALIA ISABEL Diagnosis: 1 CAPSULE TWO TIMES A DAY Last Documented On 2 9:57AM By EULALIA ISABEL ; [facility] predniSONE 10 MG Oral Tablet 06/18/2021 - 10/13/2021 Provider: EULALIA ISABEL Diagnosis: as directed 3 po daily x 3 d ays, 2 po daily times 3 days, 1 po daily x 3 days and stop Last Documented On 10/13/2021 4:14PM By Vilma BENTON ; [facility] HYDROcodone-Acetaminophen 5- 325 MG Oral Tablet 06/10/2021 - 08/05/2021 Provider: EULALIA IASBEL Diagnosis: Spinal stenosis, lumbar region with neurogenic claudication 1 po q 8 hours prn Last Documented On 2 4:56PM By EULALIA ISABEL ; [facility] HYDROcodone-Acetaminophen 10 -325 MG Oral Tablet 05/11/2021 - 10/13/2021 Provider: EULALIA ISABEL Diagnosis: Spinal stenosis, lumbar region with neurogenic claudication 1 po bid prn Last Documented On 10/13/2021 4:14PM By Vilma BENTON ; [facility] Pregabalin 225 MG Oral Capsule 05/03/2021 - 07/28/2021 Provider: EULALIA ISABEL Diagnosis: TAKE ONE CAPSULE BY MOUTH TWO TIMES a DAY Last Documented On 2 2:50PM By EULALIA ISABEL ; [facility] Cyclobenzaprine HCl 5 MG Ora l Tablet 04/23/2021 - 09/20/2021 Provider: EULALIA ISABEL Diagnosis: TAKE ONE OR TWO TABLETS BY M OUTH THREE TIMES a DAY NEEDED Last Documented On 2 10:07AM By EULALIA ISABEL ; [facility] Cyclobenzaprine HCl 5 MG Ora l Tablet 04/21/2021 - 10/13/2021 Provider: EULALIA HANNONBC Diagnosis: TAKE ONE OR TWO TABLETS BY M OUTH THREE TIMES a DAY NEEDED Last Documented On 10/13/2021 4:14PM By Vilma BENTON ; [facility] HYDROcodone-Acetaminophen 10 -325 MG Oral Tablet 04/08/2021 - 05/11/2021 Provider: EULALIA ISABEL Diagnosis: Spinal stenosis, lumbar region with neurogenic claudication 1 po bid prn Last Documented On 2 12:21PM By EULALIA ISABEL ; [facility] HYDROcodone-Acetaminophen 10 -325 MG Oral Tablet 02/17/2021 - 04/08/2021 Provider: EULALIA ISABEL Diagnosis: Spinal stenosis, lumbar region with neurogenic claudication 1 po bid prn Last Documented On 2 10:39AM By EULALIA ISABEL ; [facility] Celecoxib 100 MG Oral Capsule 02/16/2021 - 10/13/2021 Provider: EULALIA ISABEL Diagnosis: TAKE ONE CAPSULE BY MOUTH DAILY Last Documented On 10/13/2021 4:15PM By Vilma BENTON ; [facility] Pregabalin 225 MG Oral Capsule 02/01/2021 - 06/10/2021 Provider: EULALIA HANNONBC Diagnosis: TAKE ONE CAPSULE BY MOUTH TWO TIMES A DAY Last Documented On 2 3:45PM By EULALIA ISABEL ; [facility] Cyclobenzaprine HCl 5 MG Ora l Tablet 02/01/2021 - 10/13/2021 Provider: EULALIA HANNONBC Diagnosis: TAKE ONE OR TWO TABLETS BY M OUTH THREE TIMES A DAY NEEDED Last Documented On 10/13/2021 4:15PM By Vilma BENTON ; [facility] HYDROcodone-Acetaminophen 10 -325 MG Oral Tablet 01/21/2021 - 02/17/2021 Provider: EULALIA ISABEL Diagnosis: 1 po bid prn Last Documented On 1 4:43PM By EULALIA ISABEL ; [facility] Cyclobenzaprine HCl 5 MG Ora l Tablet 12/04/2020 - 02/01/2021 Provider: EULALIA ISABEL Diagnosis: TAKE ONE OR TWO TABLETS BY [facility] THREE TIMES A DAY NEEDED Last Documented On 1 2:08PM By EULALIA ISABEL ; [facility] HYDROcodone-Acetaminophen 10 -325 MG Oral Tablet 11/27/2020 - 01/21/2021 Provider: EULALIA ISABEL Diagnosis: Spinal stenosis, lumbar region with neurogenic claudication 1 po bid prn Last Documented On 1 3:07PM By EULALIA ISABEL ; [facility] HYDROcodone-Acetaminophen 10 -325 MG Oral Tablet 11/23/2020 - 11/27/2020 Provider: EULALIA ISABEL Diagnosis: 1 po bid prn Last Documented On 1 12:23PM By EULALIA ISABEL ; [facility] Celecoxib 100 MG Oral Capsule 11/10/2020 - 02/16/2021 Provider: EULALIA ISABEL Diagnosis: TAKE ONE CAPSULE BY MOUTH DAILY Last Documented On 1 8:18AM By EULALIA ISABEL ; [facility] Pregabalin 225 MG Oral Capsule 10/30/2020 - 02/01/2021 Provider: EULALIA ISABEL Diagnosis: TAKE ONE CAPSULE BY MOUTH TWO TIMES A DAY Last Documented On 1 2:15PM By EULALIA ISABEL ; [facility] Celecoxib 100 MG Oral Capsule 10/23/2020 - 11/23/2020 Provider: SHAHANA CIFUENTES APN Diagnosis: Spinal stenosis, lumbar region with neurogenic claudication TAKE ONE CAPSULE BY MOUTH DAILY Last Documented On 1 1:10PM By EULALIA ISABEL ; [facility] HYDROcodone-Acetaminophen 10 -325 MG Oral Tablet 10/13/2020 - 11/23/2020 Provider: EULALIA ISABEL Diagnosis: 1 po bid prn Last Documented On 1 1:12PM By EULALIA ISABEL ; [facility] HYDROcodone-Acetaminophen 10 -325 MG Oral Tablet 10/08/2020 - 10/12/2020 Provider: EULALIA ISABEL Diagnosis: Spinal stenosis, lumbar region with neurogenic claudication 1 po bid prn Last Documented On 1 3:11PM By EULALIA ISABEL ; [facility] Celecoxib 100 MG Oral Capsule 10/02/2020 - 10/23/2020 Provider: SHAHANA CIFUENTES APN Diagnosis: Spinal stenosis, lumbar region with neurogenic claudication TAKE ONE CAPSULE BY MOUTH DAILY Last Documented On 10/23/2020 11:30AM By Shahana Cifuentes APN ; [facility] HYDROcodone-Acetaminophen 5- 325 MG Oral Tablet 09/09/2020 - 02/17/2021 Provider: EULALIA ISABEL Diagnosis: 1-2 po daily prn, use [id number] day rx Last Documented On 1 4:32PM By EULALIA ISABEL ; [facility] Celecoxib 100 MG Oral Capsule 09/03/2020 - 10/02/2020 Provider: EULALIA ISABEL Diagnosis: Spinal stenosis, lumbar region with neurogenic claudication TAKE ONE CAPSULE BY MOUTH DAILY Last Documented On 10/02/2020 9:07AM By Shahana Cifuentes APN ; [facility] Cyclobenzaprine HCl 5 MG Ora l Tablet 09/02/2020 - 12/04/2020 Provider: EULALIA ISABEL Diagnosis: TAKE ONE OR TWO TABLETS BY OUT THREE TIMES A DAY NEEDED Last Documented On 1 8:40AM By EULALIA ISABEL ; [facility] HYDROcodone-Acetaminophen 5- 325 MG Oral Tablet 08/06/2020 - 09/08/2020 Provider: EULALIA ISABEL Diagnosis: Postlaminectomy syndrome, not elsewhere classified 1-2 po daily prn, use sprain gly30 day rxDO not take within 4-6 hours of xanax Last Documented On 1 8:33AM By EULALIA ISABEL ; [facility] Pregabalin 225 MG Oral Capsule 07/31/2020 - 10/30/2020 Provider: EULALIA ISABEL Diagnosis: Fibromyalgia TAKE ONE CAPSULE BY MOUTH TWO TIMES A DAY Last Documented On 1 12:27PM By EULALIA HANNON ; [facility] HYDROcodone-Acetaminophen 5- 325 MG Oral Tablet 07/09/2020 - 08/06/2020 Provider: EULALIA ISABEL Diagnosis: Postlaminectomy syndrome, not elsewhere classified 1-2 po daily prn, use [id number] day rx Last Documented On 1 3:50PM By EULALIA ISABEL ; [facility] Cyclobenzaprine HCl 5 MG Ora l Tablet 06/26/2020 - 09/02/2020 Provider: EULALIA ISABEL Diagnosis: TAKE ONE OR TWO TABLETS BY M OUT THREE TIMES A DAY NEEDED Last Documented On 1 11:47AM By EULALIA ISABEL ; [facility] HYDROcodone-Acetaminophen 5- 325 MG Oral Tablet 06/09/2020 - 07/09/2020 Provider: EULALIA ISABEL Diagnosis: Postlaminectomy syndrome, not elsewhere classified 1-2 po daily prn, use [id number] day rx Last Documented On 1 4:57PM By EULALIA ISABEL ; [facility] HYDROcodone-Acetaminophen 5- 325 MG Oral Tablet 06/03/2020 - 06/09/2020 Provider: EULALIA ISABEL Diagnosis: Postlaminectomy syndrome, not elsewhere classified 1-2 po daily prn, use [id number] day rx Last Documented On 1 1:24PM By EULALIA ISABEL ; [facility] Celecoxib 100 MG Oral Capsule 06/03/2020 - 09/03/2020 Provider: EULALIA ISABEL Diagnosis: Spinal stenosis, lumbar region with neurogenic claudication 1 capsule daily Last Documented On 1 12:02PM By EULALIA ISABEL ; [facility] HYDROcodone-Acetaminophen 5- 325 MG Oral Tablet 05/05/2020 - 06/03/2020 Provider: WILLIE FROST MD Diagnosis: Postlaminectomy syndrome, not elsewhere classified 1-2 po daily prn, use [id number] day rx Last Documented On 1 8:46PM By EULALIA ISABEL ; [facility] HYDROcodone-Acetaminophen 5- 325 MG Oral Tablet 04/08/2020 - 05/04/2020 Provider: EULALIA ISABEL Diagnosis: Postlaminectomy syndrome, not elsewhere classified 1-2 po daily prn, use [id number] day rx Last Documented On 05/05/2020 11:10AM By Willie Frost MD ; [facility] Pregabalin 225 MG Oral Capsule 04/02/2020 - 07/31/2020 Provider: EULALIA ISABEL Diagnosis: Fibromyalgia TAKE ONE CAPSULE BY MOUTH TWO TIMES A DAY Last Documented On 1 7:37AM By EULALIA ISABEL ; [facility] Cyclobenzaprine HCl 5 MG Ora l Tablet 03/30/2020 - 06/26/2020 Provider: EULALIA ISABEL Diagnosis: TAKE ONE OR TWO TABLETS BY M OUT THREE TIMES A DAY NEEDED Last Documented On 1 11:32AM By EULALIA ISABEL ; [facility] Celecoxib 100 MG Oral Capsule 03/11/2020 - 05/26/2020 Provider: EULALIA ISABEL Diagnosis: Spinal stenosis, lumbar region with neurogenic claudication 1 capsule daily Last Documented On 1 10:52PM By EULALIA ISABEL ; [facility] HYDROcodone-Acetaminophen 5- 325 MG Oral Tablet 03/11/2020 - 04/08/2020 Provider: EULALIA ISABEL Diagnosis: Postlaminectomy syndrome, not elsewhere classified 1-2 po daily prn, use [id number] day rx Last Documented On 1 3:18PM By EULALIA ISABEL ; [facility] Pregabalin 225 MG Oral Capsule 02/05/2020 - 04/02/2020 Provider: EULALIA ISABEL Diagnosis: Fibromyalgia TAKE ONE CAPSULE BY MOUTH TWO TIMES A DAY Last Documented On 1 11:02AM By EULALIA ISABEL ; [facility] HYDROcodone-Acetaminophen 5- 325 MG Oral Tablet 02/05/2020 - 03/11/2020 Provider: EULALIA ISABEL Diagnosis: Postlaminectomy syndrome, not elsewhere classified 1-2 po daily prn, use sprain gly30 day rxok to fill 02/06/20 Last Documented On 1 4:10PM By EULALIA ISABEL ; [facility] Lyrica 200 MG Oral Capsule 01/29/2020 - 03/11/2020 Provider: EULALIA ISABEL Diagnosis: Spinal stenosis, lumbar region with neurogenic claudication 1 CAPSULE TWO TIMES A DAY Last Documented On 1 3:53PM By EULALIA ISABEL ; [facility] HYDROcodone-Acetaminophen 5- 325 MG Oral Tablet 01/06/2020 - 02/05/2020 Provider: EULALIA ISABEL Diagnosis: Postlaminectomy syndrome, not elsewhere classified 1-2 po daily prn, use sprain gly30 day rxto fill 01/12/20 Last Documented On 0 3:14PM By EULALIA ISABEL ; [facility] HYDROcodone-Acetaminophen 5- 325 MG Oral Tablet 12/12/2019 - 01/06/2020 Provider: EULALIA ISABEL Diagnosis: Postlaminectomy syndrome, not elsewhere classified 1-2 po daily prn, use sprain gly30 day rxto fill 12/13 Last Documented On 0 10:16AM By EULALIA ISABEL ; [facility] Cyclobenzaprine HCl 5 MG Ora l Tablet 11/20/2019 - 03/30/2020 Provider: EULALIA ISABEL Diagnosis: TAKE ONE OR TWO TABLETS BY [facility] THREE TIMES A DAY NEEDED Last Documented On 1 9:14AM By EULALIA ISABEL ; [facility] HYDROcodone-Acetaminophen 5- 325 MG Oral Tablet 11/14/2019 - 12/12/2019 Provider: EULALIA ISABEL Diagnosis: Postlaminectomy syndrome, not elsewhere classified 1-2 po daily prn, use sprain gly30 day rxto fill 11/14 Last Documented On 0 10:01AM By EULALIA ISABEL ; [facility] Pregabalin 225 MG Oral Capsule 11/04/2019 - 02/05/2020 Provider: EULALIA ISABEL Diagnosis: Fibromyalgia 1 CAPSULE TWO TIMES A DAY Last Documented On 0 2:52PM By EULALIA ISABEL ; [facility] HYDROcodone-Acetaminophen 5- 325 MG Oral Tablet 10/16/2019 - 11/14/2019 Provider: EULALIA ISABEL Diagnosis: Postlaminectomy syndrome, not elsewhere classified 1-2 po daily prn, use [id number] day rx Last Documented On 0 5:03PM By EULALIA ISABEL ; [facility] Cyclobenzaprine HCl 5 MG Ora l Tablet 10/14/2019 - 11/20/2019 Provider: EULALIA ISABEL Diagnosis: 1-2 po TID prn Last Documented On 0 1:25PM By EULALIA ISABEL ; [facility] Cyclobenzaprine HCl 5 MG Ora l Tablet 09/23/2019 - 10/14/2019 Provider: EULALIA ISABEL Diagnosis: 1-2 po TId prn Last Documented On 0 12:46PM By EULALIA ISABEL ; [facility] HYDROcodone-Acetaminophen 5- 325 MG Oral Tablet 09/11/2019 - 10/16/2019 Provider: EULALIA ISABEL Diagnosis: Postlaminectomy syndrome, not elsewhere classified 1 po daily prnfill 09/12/19 or after Last Documented On 0 2:33PM [facility] HYDROcodone-Acetaminophen 5- 325 MG Oral Tablet 08/14/2019 - 09/10/2019 Provider: EULALIA ISABEL Diagnosis: Low back pain 1 po daily prn Last Documented On 0 9:35AM [facility] ; [facility] Lyrica 225 MG Oral Capsule 08/06/2019 - 11/04/2019 Provider: EULALIA ISABEL Diagnosis: Fibromyalgia TAKE ONE CAPSULE BY MOUTH TWO TIMES A DAY Last Documented On 0 9:13AM [facility] ; [facility] HYDROcodone-Acetaminophen 5- 325 MG Oral Tablet 07/11/2019 - 08/13/2019 Provider: EULALIA ISABEL Diagnosis: Low back pain 1 po daily prnto fill 07/14/19 Last Documented On 0 4:14PM [facility] ; [facility] HYDROcodone-Acetaminophen 5- 325 MG Oral Tablet 2019 - 07/11/2019 Provider: EULALIA ISABEL Diagnosis: Low back pain 1 po daily prn Last Documented On 0 10:06AM By EULALIA HANNON ; [facility] Lyrica 225 MG Oral Capsule 05/02/2019 - 08/06/2019 Provider: EULALIA ISABEL Diagnosis: Fibromyalgia TAKE ONE CAPSULE BY MOUTH TWO TIMES A DAY Last Documented On 0 3:53PM By EULALIA HANNON ; [facility] [place] 5-325 MG Oral Tablet 04/26/2019 - 07/11/2019 Provider: EULALIA ISABEL Diagnosis: Postlaminectomy syndrome, not elsewhere classified 1 po BID prn Last Documented On 0 8:13AM By Destiney BENTON ; [facility] [place] 5-325 MG Oral Tablet 04/25/2019 - 04/25/2019 Provider: EULALIA L XUAN ANP-BC Diagnosis: Postlaminectomy syndrome, not elsewhere classified 1 po BID prn Last Documented On 0 11:26AM By EULALIA ISABEL ; [facility] [place] 5-325 MG Oral Tablet 04/05/2019 - 04/24/2019 Provider: EULALIA ISABEL Diagnosis: Postlaminectomy syndrome, not elsewhere classified 1 po BID prn Last Documented On 0 8:39AM By EULALIA MARIE-ARIANA ; [facility] Lyrica 225 MG Oral Capsule 04/05/2019 - 05/02/2019 Provider: EULALIA ISABEL Diagnosis: Fibromyalgia TAKE ONE CAPSULE BY MOUTH TWO TIMES A DAY Last Documented On 0 3:39PM By EULALIA ISABEL ; [facility] [place] 5-325 MG Oral Tablet 03/20/2019 - 04/05/2019 Provider: EULALIA ISABEL Diagnosis: Postlaminectomy syndrome, not elsewhere classified 1 po BID prn Last Documented On 0 10:40AM By EULALIA ISABEL ; [facility] Cyclobenzaprine HCl 10 MG Or al Tablet 02/15/2019 - 09/10/2019 Provider: EULALIA ISABEL Diagnosis: as directed take 1/2- 1 PO TID PRN Last Documented On 0 4:27PM By EULALIA ISABEL ; [facility] Cyclobenzaprine HCl 10 MG Or al Tablet 01/28/2019 - 02/15/2019 Provider: EULALIA ISABEL Diagnosis: as directed take 1/2- 1 PO TID PRN Last Documented On 9 12:45PM By EULALIA ISABEL ; [facility] Lyrica 225 MG Oral Capsule 01/04/2019 - 04/05/2019 Provider: EULALIA ISABEL Diagnosis: Fibromyalgia TAKE ONE CAPSULE BY MOUTH TWO TIMES A DAY Last Documented On 0 8:59AM By EULALIA ISABEL ; [facility] Naltrexone 1.5 MG Oral Tablet 11/01/2018 - 03/20/2019 Provider: EULALIA ISABEL Diagnosis: Fibromyalgia 1 po q am Last Documented On 0 1:17PM By Destiney BENTON ; [facility] Lyrica 225MG Oral Capsule 10/22/2018 - 01/04/2019 Provider: EULALIA ISABEL Diagnosis: Fibromyalgia 1 CAPSULE TWO TIMES A DAY Last Documented On 9 12:21PM By EULALIA MARIEARIANA ; [facility] Lyrica 225MG Oral Capsule 10/22/2018 - 10/22/2018 Provider: EULALIA ISABEL Diagnosis: Fibromyalgia 1 CAPSULE TWO TIMES A DAY Last Documented On 9 10:51AM By EULALIA HANNON ; [facility] Lyrica 225MG Oral Capsule 10/19/2018 - 10/19/2018 Provider: EULALIA ISABEL Diagnosis: Fibromyalgia 1 CAPSULE TWO TIMES A DAY Last Documented On 9 8:15AM [facility] ; [facility] Omeprazole 20MG Oral Tablet Delayed Release 10/18/2018 - 07/12/2022 Provider: Diagnosis: Last Documented On 07/12/2022 4:28PM By Vilma BENTON ; [facility] [place] 5-325MG Oral Tablet 10/18/2018 - 03/20/2019 Provider: EULALIA ISABEL Diagnosis: Radiculopathy, l umbar region 1 po BID x 7 days, 1 qd x 7 days then stop Last Documented On 0 1:48PM By EULALIA ISABEL ; [facility] Xanax 0.5MG Oral Tablet 10/18/2018 - 10/13/2021 Provid er: Diagnosis: Last Documented On 10/13/2021 4:15PM By Vilma BENTON ; [facility] amLODIPine Besylate 5MG Oral Tablet 10/18/2018 - 05/10 Provider: Diagnosis: Last Documented On 05/10/2022 4:20PM By Vilma BENTON ; [facility] Baclofen 10MG Oral Tablet 10/18/2018 - 03/20/2019 Prov ider: Diagnosis: Last Documented On 0 1:41PM By EULALIA ISABEL ; [facility] Metoprolol Succinate ER 50MG Oral Tablet Extended Release 24 Hour 10/18/2018 - 07/12/2022 Provider: Diagnosis: Last Documented On 07/12/2022 4:27PM By Vilma BENTON ; [facility] Levothyroxine Sodium 100MCG Oral Tablet 10/18/2018 - 0 07/28/2022 Provider: Diagnosis: Last Documented On 07/28/2022 4:14PM By Vilma BENTON ; [facility] Famotidine 20MG Oral Tablet 10/18/2018 - 07/28/2022 Pr ovider: Diagnosis: Last Documented On 07/28/2022 4:14PM By Vilma BENTON ; [facility] Desvenlafaxine Succinate ER 100MG Oral Tablet Extended Release 24 Hour 10/18/2018 - 07/28/2022 Provider: Diagnosis: Last Documented On 07/28/2022 4:14PM By Vilma BENTON ; [facility] Meloxicam 15MG Oral Tablet 10/18/2018 - 03/11/2020 Pro vider: Diagnosis: Last Documented On 1 4:12PM By EULALIA ISABEL ; [facility] HYDROcodone-Acetaminophen 7.5-325MG Oral Tablet 10/18/2018 - 01/15/2019 Provider: Diagnosis: Last Documented On 9 4:21PM By EULALIA ISABEL ; [facility] buPROPion HCl ER (SR) 150MG Oral Tablet Extended Release 12 Hour 10/18/2018 - 07/28/2022 Provider: Diagnosis: Last Documented On 07/28/2022 4:13PM By Vilma BENTON ; [facility] Lyrica 200MG Oral Capsule 10/18/2018 - 01/28/2020 Prov ider: Diagnosis: Last Documented On 0 9:26AM By EULALIA ISABEL ; [facility] Losartan Potassium 50MG Oral Tablet 10/18/2018 - 07/28 Provider: Diagnosis: Last Documented On 07/28/2022 4:15PM By Vilma Mcgraw A ; [facility] Medications Administered Includes: Administered Medications in patient's chart Medications Administered Diagnosis Date Pro vider Ketorolac Tromethamine 30 MG/ML IJ SOLN Radiculopathy, lumbar region 01/06/2020 EULALIA RENTERIAS ANP-BC Last Documented On 0 9:42AM By Dulce DIASA ; [facility] Triamcinolone Acetonide 40 MG/ML IJ SUSP 08/25/2022 WILLIE FROST MD Last Documented On 3 9:13AM By Darleen Adame RN ; [facility] Lidocaine HCl (PF) 1% IJ SOLN 08/25/2022 WILLIE FROST MD Last Documented On 3 9:18AM By Darleen Adame RN ; [facility] Sodium Chloride (PF) 0.9% IJ SOLN 023 WILLIE FROST MD Last Documented On 3 9:17AM By Darleen Adame RN ; [facility] Sensorcaine-MPF 0.5% IJ SOLN 08/25/2022 WILLIE FROST MD Last Documented On 3 9:16AM By Darleen Adame RN ; [facility] Results Includes: Results from 02/23/2024 through 02/22/2025 No Results Recorded For Specified Dates History of Present Illness History of Present Illness not supported for this document type No History of Present Illness Recorded Social History Description Last Updated Former smoker 04/13/2023 Last Documented On 4 8:15AM ; [facility] Smoker 09/10/2019 Last Documented On 0 9:35AM ; [facility] Smoking status : Current everyday smoker 03/20/2019 Last Documented On 0 2:36PM ; [facility] 10/18/2018 Last Documented On 9 10:57AM ; [facility] Not using drugs 10/18/2018 Last Documented On 9 10:57AM ; [facility] Medical History Includes: Medical History in patient's chart Description Last Updated Denies a fear of falling. 04/13/2023 Last Documented On 4 8:15AM ; [facility] Has had a fall in the last 12 months. Last Documented On 1 4:12PM ; [facility] Reviewed and Unchanged 05/02/2019 Last Documented On 0 12:25PM ; [facility] 0 miscarriage(s) 10/18/2018 Last Documented On 9 10:57AM ; [facility] Currently wearing eyeglasses 10/18/2018 Last Documented On 9 10:57AM ; [facility] Previously 2 time(s) 10/18/2018 Last Documented On 9 10:57AM ; [facility] History of hypertension 10/18/2018 Last Documented On 9 10:57AM ; [facility] No history of arthritis 10/18/2018 Last Documented On 9 10:57AM ; [facility] No history of cancer 10/18/2018 Last Documented On 9 10:57AM ; [facility] No history of chronic obstructive pulmon bethany disease 10/18/2018 Last Documented On 9 10:57AM ; [facility] No history of convulsive disorder 2018 Last Documented On 9 10:57AM ; [facility] No history of diabetes mellitus 10/19/19 19 Last Documented On 9 10:57AM ; [facility] No history of sexually transmitted disea se 10/18/2018 Last Documented On 9 10:57AM ; [facility] No history of stroke syndrome 10/18/2018 Last Documented On 9 10:57AM ; [facility] No reported cardiovascular symptoms 10/04 Last Documented On 9 10:57AM ; [facility] No reported easy bleeding 10/18/2018 Last Documented On 9 10:57AM ; [facility] No reported recurrent infections 019 Last Documented On 9 10:57AM ; [facility] Surgery back surgery 2012 10/18/2018 Last Documented On 9 10:57AM ; [facility] Family History Includes: Family History in patient's chart No Family History Recorded Review of Systems Review of Systems not supported for this document type No Review of Systems Recorded Mental Status No Mental Status Recorded Functional Status No Functional Status Recorded Physical Exam Physical Exam not supported for this document type No Physical Exam Recorded Allergies Includes: Active, inactive, and resolved Allergies Substance Type Reaction Onset Date Resolved Date Statu s Morphine Sulfate Allergy Skin Rashes / E ruption of skin 10/18/2018 Active Last Documented On 4 4:26PM ; [facility] Levaquin Allergy 10/08/2020 Active Last Documented On 4 4:26PM ; [facility] Insurance Includes: Active Insurance Policies Plan Name Member ID Group # Subscriber Relationship Effect chelle Dates 1 - MEDICAID [place] [facility] [id number] RITO FUENTES Self Clinical Notes Includes: Signed Clinical Notes starting from 03/25/2022 No Clinical Notes Recorded
--- OUTSIDE RECORDS SUMMARY | 2025-02-22 12:13 | XMS_ITS | Encounter Summary ---
Author Organization [facility] Address [address] [place] [address] Phone Care Team Providers Care Choker Hooker Name Role Phone Yuliana Florez APN Unavailable Unavailab Damaso Chaudhari MD Primary Care Provider [phone] Michel Yanez APRN, SENIOR WEB ARCHITECT Unavailable [phone] Laureano Quigley MD Unavailable [phone] Elsa Kenny APRN, SENIOR WEB ARCHITECT Unavailable + [phone] Saurav Goyal MD Unavailable Homer Alcala MD Primary Care Provider [phone] Yuni Meneses WHIZZER Unavailable Unavailab Ayala Orozco APRN, WATER QUALITY TECHNICIAN Unavailable + [phone] Reason for Visit * Reason Comments Medication Refill Encounter Details Date Type Department Care Team (Late st Contact Info) Description 06/16/2020 Refill [facility] [address] [place] [address] Felecia Saenz, TELECOMMUNICATION EQUIPMENT REPAIRER, SENIOR WEB ARCHITECT [address] [place] [address] Medication Refill Social History Tobacco Use Types [...] 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 No / Unsure 06/10/2020 4:28 PM CDT documented as of this encounter Plan of Treatment Upcoming Encounters Date Type Department Care Team (Latest Contact Info) Description 03/03/2025 10:00 AM OUTCOME ANALYST Office Visit [facility] Medical [facility] - Orthopedic Surgery [facility] #[address] [place] [address] Homer Alcala MD #2 [facility] [address] [place] [address] Ann Graham MD #2 [facility] [address] [place] [address] 03/04/2025 2:00 PM OUTCOME ANALYST Office Visit [facility] - Cardiology [facility] #2 [place] [address] Homer Alcala MD #2 [facility] [address] [place] [address] Carolin Sykes APRN, SENIOR WEB ARCHITECT 2 [facility] [address] [place] [address] 03/19/2025 10:15 AM OUTCOME ANALYST [facility] [address] [place] [address] Sujata Winn, TELECOMMUNICATION EQUIPMENT REPAIRER, SENIOR WEB ARCHITECT [address] [place] [address] Michelle Patel, PT [place] Discharge Disposition: Discharged to home or Selfcare 03/21/2025 1:30 PM OUTCOME ANALYST [facility] #2 [place] [address] Ayala Weaver APRN, WATER QUALITY TECHNICIAN #2 [place] [address] 04/29/2025 9:00 AM OUTCOME ANALYST [facility] [place] [address] [place] [address] Ayala Weaver APRN, WATER QUALITY TECHNICIAN #[address] [place] [address] 05/09/2025 11:00 AM OUTCOME ANALYST [facility] #2 [place] [address] Saurav Goyal MD #2 [place] [address] documented as of this encounter Goals Goal [...] 19 04/05/2024 04/05/2024 04/05/2024 12:3 5 PM OUTCOME ANALYST COVID - 19 05/19/2024 05/19/2024 05/19/2024 6:18 PM CDT Assessment Noted Time PHQ-9 Depression Total Score: 1 01/12/20 19 5:00 PM OUTCOME ANALYST documented as of this encounter Care Teams Choker Hooker Relationship Specialty Start Date End Date Damaso Vazquez MD PCP - General Family Medicine 05/28/20 08/31/23 Homer Alcala MD #[address] [place] [address] PCP - General Family Medicine 09/01/23 Yuliana Florez ONCOLOGY RESEARCH RN Advanced Practice Nurse 01/24/18 Michel Yanez, TELECOMMUNICATION EQUIPMENT REPAIRER, SENIOR WEB ARCHITECT [address] [place] [address] Nurse Practitioner Advanced Practice Nurse 12/28/21 Laureano Quigley MD #2 [facility], [facility] [address] [place] [address] Consulting Physician Urology 02/04/22 Elsa Kenny APRN, SENIOR WEB ARCHITECT #2 [facility], [facility] [address] [place] [address] Nurse Practitioner Cardiology 07/14/23 09/17/24 Saurav Goyal MD #2 [place] [address] Consulting Physician Pulmonary Disease 07/28/23 Yuni Meneses, WHIZZER [place] Nanny/Household Manager Air Compressor Operator 11/27/23 12/04/23 Ayala Weaver APRN, WATER QUALITY TECHNICIAN [address] [place] [address] Nurse Practitioner Neurology 12/18/23 documented as of this encounter
--- OUTSIDE RECORDS SUMMARY | 2025-02-22 12:13 | XMS_ITS | Encounter Summary ---
Author Organization [facility] Address [address] [place] [address] Phone Care Team Providers Care Database Marketing Manager Name Role Phone Yuliana Florez APN Unavailable Unavailab Damaso Chaudhari MD Primary Care Provider [phone] Michel Yanez APRN, ASSISTANT CENTER DIRECTOR Unavailable [phone] Laureano Quigley MD Unavailable [phone] Elsa Kenny APRN, ASSISTANT CENTER DIRECTOR Unavailable + [phone] Saurav Goyal MD Unavailable Homer Alcala MD Primary Care Provider [phone] Yuni Meneses SENIOR MAINFRAME PROGRAMMER ANALYST Unavailable Unavailab Ayala Orozco APRN, STEAMBOAT CAPTAIN Unavailable + [phone] Reason for Visit * Reason Comments Medication Refill Encounter Details Date Type Department Care Team (Late st Contact Info) Description 10/21/2020 Refill [facility] - Primary Care - [place] [address] [place] [address] Felecia Saenz, GABRIEL, ASSISTANT CENTER DIRECTOR [address] [place] [address] Medication Refill Social History Tobacco Use Types [...] 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 No / Unsure 09/29/2020 11:13 AM CDT documented as of this encounter Plan of Treatment Upcoming Encounters Date Type Department Care Team (Latest Contact Info) Description 03/03/2025 10:00 AM HEAD OF HISTORY Office Visit [facility] Medical [facility] - Orthopedic Surgery - [place] #[address] [place] [address] Homer Alcala MD #2 [facility] [address] [place] [address] Ann Graham MD #2 [facility] [address] [place] [address] 03/04/2025 2:00 PM HEAD OF HISTORY Office Visit [facility] Medical [facility] - Cardiology [facility] #[address] [place] [address] Homer Alcala MD #2 [facility] [address] [place] [address] Carolin Sykes, STORE OPERATIONS MANAGER, ASSISTANT CENTER DIRECTOR 2 [facility] [address] [place] [address] 03/19/2025 10:15 AM HEAD OF HISTORY Physical [facility] [address] [place] [facility] [employer] [facility], [facility] [address] [place] [address] Sujata Winn, STORE OPERATIONS MANAGER, ASSISTANT CENTER DIRECTOR [address] [place] [address] Michelle Patel, PT [place] Discharge Disposition: Discharged to home or Selfcare 03/21/2025 1:30 PM HEAD OF HISTORY Office Visit [facility] - Neurology - [place] #[address] [place] [address] Ayala Weaver APRN, STEAMBOAT CAPTAIN #2 [place] [address] 04/29/2025 9:00 AM HEAD OF HISTORY Office Visit [facility] - Neurology - [place] #[address] [place] [address] Ayala Weaver APRN, STEAMBOAT CAPTAIN #2 [place] [address] 05/09/2025 11:00 AM HEAD OF HISTORY Office Visit [facility] - Pulmonology & Sleep Medicine - [place] [address] [place] [address] Saurav Goyal MD #2 [place] [address] documented as of this encounter Goals Goal Patient Goal Type Associated Problems Recent Progress Patient-Stated? Author Depression Behavioral Health On track(2024 4:40 PM CDT) Flora Miller LCSW Note: GOAL: Lisseth will manage depressive symptoms more effectively. Goal Reviewed with: patient today Readiness to change: Ready to change Department associated with goal: [facility] Steps to achieve goal: [...] to change Department associated with goal: [facility] Steps to achieve goal: [...] 19 04/05/2024 04/05/2024 04/05/2024 12:3 5 PM HEAD OF HISTORY COVID - 19 05/19/2024 05/19/2024 05/19/2024 6:18 PM CDT Assessment Noted Time PHQ-9 Depression Total Score: 1 01/12/20 19 5:00 PM HEAD OF HISTORY documented as of this encounter Care Teams Database Marketing Manager Relationship Specialty Start Date End Date Damaso Vazquez MD PCP - General Family Medicine 05/28/20 08/31/23 Homer Alcala MD #2 [facility] [address] [place] [address] PCP - General Family Medicine 09/01/23 Yuliana Florez, UPPER TRIMMER Advanced Practice Nurse 01/24/18 Michel Yanez, STORE OPERATIONS MANAGER, ASSISTANT CENTER DIRECTOR #2 [place] [address] Nurse Practitioner Advanced Practice Nurse 12/28/21 Laureano Quigley MD #2 [facility] [address] [place] [address] Consulting Physician Urology 02/04/22 Elsa Kenny, STORE OPERATIONS MANAGER, ASSISTANT CENTER DIRECTOR #2 [facility] [address] [place] [address] Nurse Practitioner Cardiology 07/14/23 09/17/24 Saurav Goyal MD #2 [place] [address] Consulting Physician Pulmonary Disease 07/28/23 Yuni Meneses, SENIOR MAINFRAME PROGRAMMER [facility] Plant Nursery Worker [place] Cutter 11/27/23 12/04/23 Ayala Weaver, STORE OPERATIONS MANAGER, STEAMBOAT CAPTAIN #[address] [place] [address] Nurse Practitioner Neurology 12/18/23 documented as of this encounter
--- OUTSIDE RECORDS SUMMARY | 2025-02-22 12:13 | XMS_ITS | Encounter Summary ---
Author Organization [facility] Address [address] [place] [address] Phone Care Team Providers Care Wind Field Manager Name Role Phone Yuliana Florez APN Unavailable Unavailab Michel Shepherd SHOVEL MECHANIC, LANDFILL GAS TECHNICIAN Unavailable [phone] Laureano Quigley MD Unavailable [phone] Elsa Kenny SHOVEL MECHANIC, LANDFILL GAS TECHNICIAN Unavailable + [phone] Saurav Goyal MD Unavailable Homer Alcala MD Primary Care Provider [phone] Ayala Weaver SHOVEL MECHANIC, TRAIN MASTER Unavailable + [phone] Reason for Visit * Reason Comments Medication Refill Encounter Details Date Type Department Care Team (Late st Contact Info) Description 03/08/2024 [facility]ill [facility] [address] [place] [address] Homer Alcala MD #[address] [address] Medication Refill Social History Tobacco Use Types Packs/Day Years Used Date Smoking Tobacco: Former Cigarettes 0 Q uit: 03/13/1988 Smokeless Tobacco: Never Alcohol Use Standard Drinks/Week Comments Not Currently 0 (1 standard drink = 0.6 oz pur e alcohol) seldom [facility] Utilities Answer Date Recorded In the [...] declined 12/04/2023 How often do you attend advent or rastafari serv ices? Patient declined 12/04/2023 Do you belong to any clubs o r organizations such as advent groups, unions, fraternal or athletic groups, or [...] Date Recorded Total Score - Questions 1-9 13 02/03 [facility] Occupat ional [facility] - Occupational Stress [...] any time in the past 12 m [facility], were you homeless or living in a [place] health care facility (including now)? 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 on file Not on file documented as of this encounter Functional Status * BP Answer Date of Assessment Author 122/68 03/08/2024 12:58 PM Maribel Hernandez * Temp Answer Date of Assessment Author 97.4 03/08/2024 12:58 PM PIPELINE CONSTRUCTION INSPECTOR Maribel Dorantes * Pulse Answer Date of Assessment Author 59 03/08/2024 12:58 PM PIPELINE CONSTRUCTION INSPECTOR Maribel Dorantes * Resp Answer Date of Assessment Author 16 03/08/2024 12:58 PM PIPELINE CONSTRUCTION INSPECTOR Maribel Dorantes * SpO2 Answer Date of Assessment Author 97 03/08/2024 12:58 PM PIPELINE CONSTRUCTION INSPECTOR Maribel Dorantes documented as of this encounter Mental Status * BP Answer Entry Date Author 122/68 03/08/2024 12:58 PM PIPELINE CONSTRUCTION INSPECTOR Maribel Dorantes * Temp Answer Entry Date Author 97.4 03/08/2024 12:58 PM PIPELINE CONSTRUCTION INSPECTOR Maribel Dorantes * Pulse Answer Entry Date Author 59 03/08/2024 12:58 PM PIPELINE CONSTRUCTION INSPECTOR Maribel Dorantes * SpO2 Answer Entry Date Author 97 03/08/2024 12:58 PM PIPELINE CONSTRUCTION INSPECTOR Maribel Dorantes documented in this encounter Miscellaneous Notes * Telephone Encounter - Cris Martinez RN - 03/08/2024 12:41 PM PIPELINE CONSTRUCTION INSPECTOR cyclobenzaprine (FLEXERIL) 5 MG Tablet 60 Tablet 0 03/07/2024 -- Sig: TAKE ONE (1) TO TWO (2) TABLETS BY MOUTH NIGHTLY NEEDED FOR MUSCLE SPASMS. Sent to pharmacy as: Cyclobenzaprine HCl 5 MG Oral Tablet (FLEXERIL) Class: E Prescribe E-Prescribing Status: Receipt confirmed by pharmacy (03/07/2024 3:20 PM PIPELINE CONSTRUCTION INSPECTOR) LINE CONSTRUCTION INSPECTOR documented in this encounter Plan of Treatment Upcoming Encounters Date Type Department Care Team (Latest Contact Info) Description 03/03/2025 10:00 AM PIPELINE CONSTRUCTION INSPECTOR [facility] - [facility] [address] [place] [address] Homer Alcala MD #[address] [address] Ann Graham MD #2 [facility] [address] [place] [address] 03/04/2025 2:00 PM PIPELINE CONSTRUCTION INSPECTOR [facility] [place] #2 [place] [address] Homer Alcala MD #2 [facility] [address] [place] [address] Carolin Sykes, SHOVEL MECHANIC, LANDFILL GAS TECHNICIAN 2 [facility] [address] [place] [address] 03/19/2025 10:15 AM PIPELINE CONSTRUCTION INSPECTOR Physical Therapy [facility] Rehab at [facility] 200 [facility] [address] [place] [address] Sujata Winn, SHOVEL MECHANIC, LANDFILL GAS TECHNICIAN [address] [place] [address] Michelle Patel, PT [place] Discharge Disposition: Discharged to home or Selfcare 03/21/2025 1:30 PM PIPELINE CONSTRUCTION INSPECTOR Office Visit [facility] - Neurology [facility] #2 [place] [address] Ayala Weaver APRN, TRAIN MASTER #2 [place] [address] 04/29/2025 9:00 AM PIPELINE CONSTRUCTION INSPECTOR Office Visit [facility] - Neurology [facility] #2 [place] [address] Ayala Weaver APRN, TRAIN MASTER #2 [place] [address] 05/09/2025 11:00 AM PIPELINE CONSTRUCTION INSPECTOR Office Visit [facility] - Pulmonology & Sleep Medicine [facility] #[address] [place] [address] Saurav Goyal MD #[address] [place] [address] documented as of this encounter Goals Goal Patient Goal Type Associated Problems Recent Progress Patient-Stated? Author Depression Behavioral Health On track(2024 4:40 PM CDT) No Flora Yip LCSW Note: GOAL: Lisseth will manage depressive symptoms more effectively. Goal Reviewed with: patient today Readiness to change: Ready to change Department associated with goal: [facility] Steps to achieve [...] change Department associated with goal: [facility] Steps to achieve [...] 19 04/05/2024 04/05/2024 04/05/2024 12:3 5 PM PIPELINE CONSTRUCTION INSPECTOR COVID - 19 05/19/2024 05/19/2024 05/19/2024 6:18 PM CDT Assessment Noted Time PHQ-9 Depression Total Score: 13 024 2:00 PM PIPELINE CONSTRUCTION INSPECTOR documented as of this encounter Care Teams Wind Field Manager Relationship Specialty Start Date End Date Homer Alcala MD #2 [facility] [address] [place] [address] PCP - General Family Medicine 09/01/23 Yuliana Florez, DATA ANALYSIS INTERN Advanced Practice Nurse 01/24/18 Michel Yanez SHOVEL MECHANIC, LANDFILL GAS TECHNICIAN #2 [place] [address] Nurse Practitioner Advanced Practice Nurse 12/28/21 Laureano Quigley MD #2 [facility] [address] [place] [address] Consulting Physician Urology 02/04/22 Elsa Kenny, SHOVEL MECHANIC, LANDFILL GAS TECHNICIAN #2 [facility] [address] [place] [address] Nurse Practitioner Cardiology 07/14/23 09/17/24 Saurav Goyal MD #2 [place] [address] Consulting Physician Pulmonary Disease 07/28/23 Ayala Weaver, SHOVEL MECHANIC, TRAIN MASTER #2 [place] [address] Nurse Practitioner Neurology 12/18/23 documented as of this encounter
--- OUTSIDE RECORDS SUMMARY | 2025-02-22 12:13 | XMS_ITS | Encounter Summary ---
Author Organization [facility] Address [address] [place] [address] Phone Care Team Providers Care Workers Compensation Defense Attorney Name Role Phone Yuliana Florez APN Unavailable Unavailab Damaso Chaudhari MD Primary Care Provider [phone] Michel Yanez APRN, GETTERER Unavailable [phone] Laureano Quigley MD Unavailable [phone] Elsa Kenny APRN, GETTERER Unavailable + [phone] Saurav Goyal MD Unavailable Homer Alcala MD Primary Care Provider [phone] Yuni Meneses TRUSS ASSEMBLER Unavailable Unavailab Ayala Orozco APRN, COUNSELING CASE MANAGER Unavailable + [phone] Reason for Visit * Reason Comments Medication Refill Encounter Details Date Type Department Care Team (Late st Contact Info) Description 09/21/2020 Refill [facility] [address] [place] [address] Felecia Saenz, OIL FIELD EQUIPMENT MECHANIC SUPERVISOR, GETTERER [address] [place] [address] Medication Refill Social History Tobacco Use Types [...] 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 No / Unsure 09/24/2020 1:26 PM CDT documented as of this encounter Miscellaneous Notes * Telephone Encounter - Veronica Keating RN - 09/21/2020 3:06 PM CDT Per nursing clinical judgement, provider to review and approve the medication(s) order(s) if appropriate. Requested Prescriptions Pending Prescriptions Disp Refills metoprolol Succinate (TOPROL-XL) 50 MG TABLET SR 24 HR [Pharmacy Med Name: METOPROLOL SUCCINATE ER 50 50 Tablet] 30 Tablet 5 Sig: TAKE 1 TAB BY MOUTH DAILY. Beta-Blockers Protocol Passed - 09/21/2020 8:32 AM Passed - BP on record in the past year Clinician-entered: BP Readings from Last 3 Encounters: 09/16/20 120/68 09/01/20 120/62 06/30/20 90/60 Patient-entered: No data recorded Passed - Visit with relevant provider in past 12 months or upcoming 90 days Recent Visits Date Type Provider Dept 09/16/20 Office Visit Damaso Vazquez MD [facility] 09/01/20 Office Visit Damaso Vazquez MD [facility] 06/30/20 Office Visit Damaso Vazquez MD [facility] 05/28/20 Office Visit Damaso Vazquez MD [facility] 02/10/20 Office Visit Felecia Saenz APN, GETTERER [facility] Showing recent visits within past 365 days and meeting all other requirements Future Appointments No visits were found meeting these conditions. Showing future appointments within next 90 days and meeting all other requirements documented in this encounter Plan of Treatment Upcoming Encounters Date Type Department Care Team (Latest Contact Info) Description 03/03/2025 10:00 AM ELECTRO WINNING OPERATOR Office Visit [facility] - Orthopedic Surgery - [place] [address] [place] [address] Homer Alcala MD #[address] [address] Ann Graham MD #[address] [address] 03/04/2025 2:00 PM ELECTRO WINNING OPERATOR Office Visit [facility] Cardiology - [place] [address] [place] [address] Homer Alcala MD #[address] [address] Carolin Sykes APRN, GETTERER [address] [address] 03/19/2025 10:15 AM ELECTRO WINNING OPERATOR Physical Therapy [facility] Rehab at [facility] [address] [address] Sujata Winn, OIL FIELD EQUIPMENT MECHANIC SUPERVISOR, GETTERER [address] [place] [address] Michelle Patle, PT [place] Discharge Disposition: Discharged to home or Selfcare 03/21/2025 1:30 PM ELECTRO WINNING OPERATOR Office Visit [facility] Neurology - [place] [address] [place] [address] Ayala Weaver, OIL FIELD EQUIPMENT MECHANIC SUPERVISOR, COUNSELING CASE MANAGER #[address] [place] [address] 04/29/2025 9:00 AM ELECTRO WINNING OPERATOR Office Visit [facility] Neurology - [place] [address] [place] [address] Ayala Weaver, OIL FIELD EQUIPMENT MECHANIC SUPERVISOR, COUNSELING CASE MANAGER [address] [place] [address] 05/09/2025 11:00 AM ELECTRO WINNING OPERATOR Office Visit [facility] Pulmonology & Sleep Medicine - [place] [address] [place] [address] Saurav Goyal MD [address]2 [place] [address] documented as of this encounter Goals Goal Patient Goal Type Associated Problems Recent Progress Patient-Stated? Author Depression Behavioral Health On track(2024 4:40 PM CDT) Flora Miller, SALES MERCHANDISE ASSOCIATE Note: GOAL: Lisseth will manage depressive symptoms [...] 19 04/05/2024 04/05/2024 04/05/2024 12:3 5 PM ELECTRO WINNING OPERATOR COVID - 05/19/2024 05/19/2024 05/19/2024 6:18 PM CDT Assessment Noted Time PHQ-9 Depression Total Score: 1 01/12/20 19 5:00 PM ELECTRO WINNING OPERATOR documented as of this encounter Care Teams Workers Compensation Defense Attorney Relationship Specialty Start Date End Date Damaso Vazquez MD PCP - General Family Medicine 05/28/20 08/31/23 Homer Alcala MD [address] [address] PCP - General Family Medicine 09/01/23 Yuliana Florez ADMINISTRATION INTERN Advanced Practice Nurse 01/24/18 Michel Yanez APRN, GETTERER [address] [place] [address] Nurse Practitioner Advanced Practice Nurse 12/28/21 Laureano Quigley MD [address] [address] Consulting Physician Urology 02/04/22 Elsa Kenny APRN, GETTERER #2 [facility] [address] [place] [address] Nurse Practitioner Cardiology 07/14/23 09/17/24 Saurav Goyal MD #2 [place] [address] Consulting Physician Pulmonary Disease 07/28/23 Yuni Meneses, [facility] [employer] Insurance Legal Assistant 11/27/23 12/04/23 Ayala Weaver APRN, COUNSELING CASE MANAGER [address] [place] [address] Nurse Practitioner Neurology 12/18/23 documented as of this encounter
--- OUTSIDE RECORDS SUMMARY | 2025-02-22 12:13 | XMS_ITS | Encounter Summary ---
Author Organization [facility] Address [address] [place] [address] Phone Care Team Providers Care Dry Mill Worker Name Role Phone Yuliana Florez APN Unavailable Unavailab Damaso Chaudhari MD Primary Care Provider [phone] Michel Yanez APRN, ANALYSIS MGR Unavailable [phone] Laureano Quigley MD Unavailable [phone] Elsa Kenny APRN, ANALYSIS MGR Unavailable + [phone] Saurav Goyal MD Unavailable Homer Alcala MD Primary Care Provider [phone] Yuni Meneses INTERNET WEBMASTER Unavailable Unavailab Ayala Orozco APRN, IT COMPLIANCE ANALYST Unavailable + [phone] Reason for Visit * Reason Comments Medication Refill Encounter Details Date Type Department Care Team (Late st Contact Info) Description 10/09/2020 Refill [facility] [address] [place] [address] Damaso Vazquez MD [address] [place] [address] Medication Refill Social History Tobacco Use Types [...] 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 No / Unsure 09/29/2020 11:13 AM CDT documented as of this encounter Miscellaneous Notes * Telephone Encounter - Darline Seth RN - 10/09/2020 3:59 PM CDT amLODIPine (NORVASC) 5 MG Tablet 90 Tablet 1 07/15/2020 Sig - Route: TAKE 1 TAB BY MOUTH DAILY. - Oral Sent to pharmacy as: amLODIPine Besylate 5 MG Oral Tablet (NORVASC) Class: E Prescribe E-Prescribing Status: Receipt confirmed by pharmacy (07/15/2020 ??8:59 PM CDT) Renewals Renewal provider: Felecia Saenz APN, ANALYSIS MGR amLODIPine (NORVASC) 5 MG Tablet [[id number]] 58 Status: Active Ordering user: Damaso Vazquez MD 07/15/202058 Authorized by: Damaso Vazquez MD ??Add Signature Requirement Frequency: Daily 07/15/20 - Until Discontinued Released by: Damaso Vazquez MD 07/15/[address] documented in this encounter Plan of Treatment Upcoming Encounters Date Type Department Care Team (Latest Contact Info) Description 03/03/2025 10:00 AM COAL CONVEYOR OPERATOR [facility] Visit [facility] - Orthopedic Surgery - [place] [address]2 [place] [address] Homer Alcala MD #[address] [address] Ann Graham MD #[address] [address] 03/04/2025 2:00 PM COAL CONVEYOR OPERATOR Office Visit [facility] - [facility]iology [facility] #2 [place] [address] Homer Alcala MD #[address] [address] Carolin Sykes APRN, ANALYSIS MGR 2 [facility] [address] [place] [address] 03/19/2025 10:15 AM COAL CONVEYOR OPERATOR [facility] 200 [facility], [facility] [address] [place] [address] Sujata Winn, IN STORE MARKETING ASSOCIATE, ANALYSIS MGR [address] [place] [address] Michelle Patel, PT [place] Discharge Disposition: Discharged to home or Selfcare 03/21/2025 1:30 PM COAL CONVEYOR OPERATOR Office Visit [facility] Neurology - [place] #2 [facility] [address] Ayala Weaver, IN STORE MARKETING ASSOCIATE, IT COMPLIANCE ANALYST #2 [facility] [address] 04/29/2025 9:00 AM COAL CONVEYOR OPERATOR Office Visit [facility] Neurology - [place] [address]2 [facility] [place] [address] Ayala Weaver, IN STORE MARKETING ASSOCIATE, IT COMPLIANCE ANALYST [address]2 [facility] [place] [address] 05/09/2025 11:00 AM COAL CONVEYOR OPERATOR Office Visit [facility] Pulmonology & Sleep Medicine - [place] [address] [place] [address] Saurav Goyal MD #2 [facility] [address] documented as of this encounter Goals Goal Patient Goal Type Associated Problems Recent Progress Patient-Stated? Author Depression Behavioral Health On track(2024 4:40 PM CDT) No Flora Yip LCSW Note: GOAL: Lisseth will manage depressive symptoms more effectively. Goal Reviewed with: patient today Readiness to change: Ready to change Department associated with goal: [facility] Steps [...] 4:40 PM CDT) No Varble, Flora A, GLASS CRUSHER Note: GOAL: Lisseth will process feelings of grief and loss related to her son. Goal Reviewed with: patient today Readiness to change: Ready to change Department associated with goal: [facility] Steps [...] 19 04/05/2024 04/05/2024 04/05/2024 12:3 5 PM COAL CONVEYOR OPERATOR COVID - 19 05/19/2024 05/19/2024 05/19/2024 6:18 PM CDT Assessment Noted Time PHQ-9 Depression Total Score: 1 01/12/20 19 5:00 PM COAL CONVEYOR OPERATOR documented as of this encounter Care Teams Dry Mill Worker Relationship Specialty Start Date End Date Damaso Vazquez MD PCP - General Family Medicine 05/28/20 08/31/23 Homer Alcala MD #[address] [address] PCP - General Family Medicine 09/01/23 Yuliana Florez MANUFACTURING TEACHER Advanced Practice Nurse 01/24/18 Michel Yanez, IN STORE MARKETING ASSOCIATE, ANALYSIS MGR [address] [place] [address] Nurse Practitioner Advanced Practice Nurse 12/28/21 Laureano [facility]igley MD #2 [facility] [address] [place] [address] Consulting Physician Urology 02/04/22 Elsa Kenny APRN, ANALYSIS MGR #2 [facility] [address] [place] [address] Nurse Practitioner Cardiology 07/14/23 09/17/24 Saurav Goyal MD #2 [place] [address] Consulting Physician Pulmonary Disease 07/28/23 Yuni Meneses, [facility] Blind Cleaner Webbing Tacker 11/27/23 12/04/23 Ayala Weaver APRN, IT COMPLIANCE ANALYST [address] [place] [address] Nurse Practitioner Neurology 12/18/23 documented as of this encounter
--- OUTSIDE RECORDS SUMMARY | 2025-02-22 12:13 | XMS_ITS | Encounter Summary ---
Author Organization [facility] Address [address] [place] [address] Phone Care Team Providers Care Psychological Examiner Name Role Phone Yuliana Florez APN Unavailable Unavailab Michel Shepherd GUIDE ESCORT, FOOD PRODUCTS SALES REPRESENTATIVE Unavailable [phone] Laureano Quigley MD Unavailable [phone] Saurav Goyal MD Unavailable Homer Alcala MD Primary Care Provider [phone] Ayala Weaver APRN, SIGHT MOUNTER Unavailable + [phone] Reason for Referral * PT/OT/ST (Routine) - Open Specialty Diagnoses / Procedures Referred By Contac t Referred To Contact Physical Therapy Diagnoses Cervical radiculopathy Spinal stenosis in cervical region Sujata Winn, GUIDE ESCORT, FOOD PRODUCTS SALES REPRESENTATIVE [address] [place] [address] Phone: tel: fax: [facility] Rehab at [facility] [address] [place] [address] Phone: tel: fax: Referral ID Status Reason Start Date Expiration Date Visits Re quested Visits Authorized [id number] Open 02/12/2025 100 100 Scheduling Instructions AND CREDIT MANAGER Encounter Details Date Type Department Care Team (Latest Contact Info) Description 02/12/2025 Transcribe Orders [facility] [address] [place] [address] Sujata Winn APRN, CNP [address] [place] [address] Cervical radiculopathy (Primary Dx); Spinal stenosis in cervical region Social History Tobacco Use Types Packs/Day Years Used Date Smoking Tobacco: Former Cigarettes 0 Q uit: 03/13/1988 Smokeless Tobacco: Never Alcohol Use Standard Drinks/Week Comments Not Currently 0 (1 standard drink = 0.6 oz pur e alcohol) seldom [facility] Utilities Answer Date Recorded In the [...] declined 04/16/2024 How often do you attend zoroastrian or advent serv ices? Patient declined 04/16/2024 Do you belong to any clubs o r organizations such as zoroastrian groups, unions, fraternal or athletic groups, or [...] Recorded Total Score - Questions 1-9 0 06/2024 [facility] - [...] any time in the past [address] [facility] [place], were you homeless or living in a fpc (including now)? 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 Not on file Not on file documented as of this encounter Plan of Treatment Upcoming Encounters Date Type Department Care Team (Latest Contact Info) Description 03/03/2025 10:00 AM LOAN AND CREDIT MANAGER Office [facility] - Orthopedic Surgery - [place] #2 [place] [address] Homer Alcala MD #[address] [address] Ann Graham MD #[address] [address] 03/04/2025 2:00 PM LOAN AND CREDIT MANAGER Office Visit [facility] Cardiology [facility] #2 [place] [address] Homer Alcala MD #[address] [address] Carolin Sykes APRN, FOOD PRODUCTS SALES REPRESENTATIVE [address] [address] 03/19/2025 10:15 AM LOAN AND CREDIT MANAGER [facility] 200 [facility], [address] [address] Sujata Winn, GUIDE ESCORT, FOOD PRODUCTS SALES REPRESENTATIVE [address] [place] [address] Michelle Patel, PT [place] Discharge Disposition: Discharged to home or Selfcare 03/21/2025 1:30 PM LOAN AND CREDIT MANAGER Office Visit [facility] Neurology [facility] #2 [place] [address] Ayala Weaver APRN, SIGHT MOUNTER #[address] [place] [address] 04/29/2025 9:00 AM LOAN AND CREDIT MANAGER Office Visit [facility] Neurology [facility] #[address] [place] [address] Ayala Weaver APRN, SIGHT MOUNTER #[address] [place] [address] 05/09/2025 11:00 AM LOAN AND CREDIT MANAGER Office Visit [facility] Pulmonology & Sleep Medicine [facility] #2 [place] [address] Saurav Goyal MD #[address] [place] [address] Scheduled Referrals Name Type Priority Associated Diagnoses Orde r Schedule PHYSICAL THERAPY REFERRAL Outpatient Referral Routine Cervical radiculopathy Spinal stenosis in cervical region Expected: 02/12/2025, Expires: 02/12/2026 documented as of this encounter Goals Goal Patient Goal Type Associated Problems Recent Progress Patient-Stated? Author Depression Behavioral Health On track(2024 4:40 PM CDT) Flora Miller LCSW Note: GOAL: Lisseth will manage depressive symptoms more effectively. Goal Reviewed with: patient today Readiness to change: Ready to change Department associated with goal: [facility] Steps to achieve [...] Ready to change Department associated with goal: [facility] Steps to achieve [...] Ready to change Department associated with goal: [facility] Steps to achieve [...] Ready to change Department associated with goal: [facility] Steps to achieve goal: [...] as of this encounter Visit Diagnoses Diagnosis Cervical radiculopathy- Primary Brachial neuritis or radiculitis nos Spinal stenosis in cervical region documented in this encounter Additional Health Concerns Assessment Noted Time PHQ-9 Depression Total Score: 0 01/08/20 25 5:14 PM LOAN AND CREDIT MANAGER documented as of this encounter Care Teams Psychological Examiner Relationship Specialty Start Date End Date Homer Alcala MD #2 [facility] [address] [place] [address] PCP - General Family Medicine 09/01/23 Yuliana Florez PUNCH FINISHER Advanced Practice Nurse 01/24/18 Michel Yanez APRN, FOOD PRODUCTS SALES REPRESENTATIVE #[address] [place] [address] Nurse Practitioner Advanced Practice Nurse 12/28/21 Laureano Quigley MD #2 [facility] [address] [place] [address] Consulting Physician Urology 02/04/22 Saurav Goyal MD #2 [place] [address] Consulting Physician Pulmonary Disease 07/28/23 Ayala Weaver GUIDE ESCORT, SIGHT MOUNTER #[address] [place] [address] Nurse Practitioner Neurology 12/18/23 documented as of this encounter
--- OUTSIDE RECORDS SUMMARY | 2025-02-22 12:13 | XMS_ITS | Clinical Summary ---
Author Organization [facility] Address [address] [address] Phone Care Team Providers Care Nurse Quality Name Role Phone Yuliana Florez APN Unavailable Unavailab Michel Shepherd SPORTS PHYSICIAN, ART SALES CONSULTANT Unavailable [phone] Laureano Quigley MD Unavailable [phone] Saurav Goyal MD Unavailable Homer Alcala MD Primary Care Provider [phone] Ayala Weaver APRN, OIL TESTER Unavailable + [phone] Allergies Active Allergy Reactions Criticality Noted Date Comments Levofloxacin In D5w Other (see Comments) 2018 Tendon pain Morphine Itching 12/03/2015 Semaglutide Vomiting 10/15/2024 Tetracycline Nausea 01/24/2018 Medications aspirin 81 MG Chewable Tablet Take 1 Tablet by mouth daily. 07/27/19 24 Active pregabalin (Lyrica) 150 MG Capsule Take 150 mg by mouth 2 times daily. Active loratadine (CLARITIN) 10 MG Tablet Take 1 Tablet by mouth in the morning and at bedtime. 60 Tablet 1 12/15/19 24 Active meclizine (ANTIVERT) 25 MG Tablet Take 1 Tablet by mouth 3 times daily as needed for Dizziness. 10 Tablet 03/28/19 25 Active ondansetron (ZOFRAN-ODT) 4 MG TABLET DISPERSIBLE Take 1 Tablet by mouth every 8 hours as needed for Nausea - 1st line. 15 Tablet 06/18/19 25 Active ipratropium-al buterol (DUO-NEB) 0.5-2.5 (3) MG/3ML SolutionIndica tions:Shortnes s of breath 3 mL by Nebulization route 4 times daily. 360 mL 3 09/10/19 25 Active levothyroxine (SYNTHROID) 100 MCG Tablet Take 1 Tablet by mouth daily. 90 Tablet 3 09/10/19 25 Active citalopram (CeleXA) 20 MG Tablet TAKE 1 TABLET BY MOUTH DAILY. 90 Tablet 1 11/13/19 25 Active clopidogrel (PLAVIX) 75 MG Tablet Take 1 Tablet by mouth daily. 30 Tablet 5 11/14/19 25 Active atorvastatin (LIPITOR) 40 MG Tablet Take 1 Tablet by mouth nightly. 30 Tablet 5 11/14/19 25 Active hydrOXYzine (ATARAX) 25 MG Tablet TAKE 1 TABLET BY MOUTH EVERY SIX (6) HOURS NEEDED FOR ANXIETY. INDICATIONS: FEELING ANXIOUS 90 Tablet 11/19/19 25 Active guaiFENesin (MUCINEX) 600 MG TABLET SR 12 HR TAKE TWO (2) (TWO) TABLETS BY MOUTH EVERY 12 HOURS FOR 90 DAYS REASONS: COUGH 11/19/19 25 Active montelukast (SINGULAIR) 10 MG Tablet Take 1 Tablet by mouth every evening. 30 Tablet 3 12/17/19 25 Active buprenorphine 5 MCG/HR PATCH WEEKLY 1 Patch by Transdermal route every 7 days. Active albuterol 108 (90 Base) MCG/ACT Aerosol Solution TWO (2) PUFFS INHALED EVERY 4-6 HOURS NEEDED FOR COUGH OR SHORTNESS OF BREATH 18 g 2 01/08/20 25 Active traZODone (DESYREL) 50 MG Tablet Take 1 Tablet by mouth nightly. 30 Tablet 3 01/09/20 25 Active liraglutide (VICTOZA) 18 MG/3ML Solution Pen-injector 1.8 mg by Subcutaneous route. Active metoprolol Succinate (TOPROL-XL) 25 MG TABLET SR 24 HR TAKE 1 TABLET BY MOUTH DAILY. 90 Tablet 3 01/16/20 25 Active levETIRAcetam (KEPPRA) 750 MG TabletIndicati ons:Seizure Take 1 Tablet by mouth 2 times daily. 60 Tablet 01/29/20 25 Active pantoprazole (PROTONIX) 40 MG Tablet Delayed Response Take 1 Tablet by mouth daily. 30 Tablet 5 02/06/20 25 Active Insulin Pen Needle (PEN NEEDLES 31GX5/16) 31G X 8 MM Misc Use daily with Victoza injection 100 Each 3 02/06/20 25 Active cyclobenzaprin e (FLEXERIL) 5 MG Tablet Take 1-2 Tablets by mouth nightly as needed for Muscle spasms. 60 Tablet 02/06/20 25 Active clonazePAM (KlonoPIN) 0.5 MG TabletIndicati ons:Panic Disorder Take 1 Tablet by mouth nightly. Indications: Panic Disorder 30 Tablet 02/11/20 25 Active Insulin Pen Needle (PEN NEEDLES 31GX5/16) 31G X 8 MM Misc Use daily with Victoza injection 100 Each 3 02/06/20 24 2024 Discontinued(R eorder) pantoprazole (PROTONIX) 40 MG Tablet Delayed Response Take 1 Tablet by mouth daily. rx [id number] 30 Tablet 5 09/10/19 25 2024 Discontinued cyclobenzaprin e (FLEXERIL) 5 MG Tablet Take 1-2 Tablets by mouth nightly as needed for Muscle spasms. 60 Tablet 12/17/19 25 2024 Discontinued(R eorder) clonazePAM (KlonoPIN) 0.5 MG TabletIndicati ons:Panic Disorder Take 1 Tablet by mouth nightly. Indications: Panic Disorder 30 Tablet 01/12/20 25 2024 Discontinued(R eorder) levETIRAcetam (KEPPRA) 500 MG Tablet Take 1 Tablet by mouth 2 times daily. 60 Tablet 5 01/08/20 25 2024 Discontinued(D ose adjustment) Active Problems Problem Noted Date Diagnosed Date Prediabetes 10/19/2023 Cerebrovascular accident (CVA) 06/30/2023 Coronary artery disease due to lipid rich plaque 06/30/2023 Herpes simplex 04/14/2021 Overview (2021): Last Assessment & Plan: Condition: asymptomatic Patient is asymptomatic at this visit. Continue medications as prescribed as needed for outbreaks and follow up with PCP/specialist as scheduled. Follow up in: six months Ataxia 09/16/2020 Neuropathy 09/16/2020 Difficulty urinating 09/16/2020 Mixed hyperlipidemia 07/01/2020 Chronic prescription benzodiazepine use 07/02/19 21 Grief 05/14/2020 Anticipatory grief 04/13/2020 Major depressive disorder, r ecurrent episode, mild with anxious distress 04/13/2020 Irritable bowel syndrome with diarrhea 0 Degeneration of lumbar intervertebral disc 01/11 History of musculoskeletal disease 01/11/2019 Obstructive sleep apnea syndrome 06/19/2018 Hypersomnia 06/19/2018 Pes anserinus bursitis of left knee 06/12/2018 Overview (09/03/2018): Last Assessment & Plan: Patient may find topical rubs helpful. She should continue with a pillow or a folded blanket the pad the affected area at night Anxiety 01/26/2018 Leg cramps 01/26/2018 Other forms of systemic lupus erythematosus 01/05 Overview (03/20/2018): Last Assessment & Plan: - continue monitoring for symptoms and labs Hypothyroidism 01/26/2018 Overview (03/20/2018): Overview: Hypothyroidism Last Assessment & Plan: - check TSH and continue current medications Constipation 01/26/2018 Overview (03/20/2018): Last Assessment & Plan: - continue linzess Benign essential HTN 01/26/2018 Gastroesophageal reflux disease 01/26/2018 Depression 01/26/2018 Overview (03/20/2018): Overview: DEPRESSIVE DISORDER NEC Arthritis of left knee 12/21/2017 Overview (03/20/2018): Last Assessment & Plan: Patient was found to have degenerative fraying of the meniscus but no erik tears by MRI. She does have some reactive synovitis of the knee may benefit from cortisone. After reviewing the treatment options patient elected undergo a shot. She may find a knee sleeve helpful as well as elevation and ice packs Arthritis of left knee 12/21/2017 Overview (09/03/2018): Last Assessment & Plan: Patient does have underlying fibromyalgia with moderate arthritis of the knee. Her most pronounced symptoms are in the patellofemoral region. After reviewing the treatment options patient elected undergo a cortisone injection which was given today through a sterile field. She tolerated the procedure well. The long-term weight loss would likely be beneficial. Arthritis of left knee 12/21/2017 Overview (01/11/2019): Last Assessment & Plan: Patient does have [...] long-term weight loss would likely be beneficial. Arthritis of left elbow 07/25/2017 Overview (03/20/2018): Last Assessment & Plan: Patient has minimal radiographic changes of arthritis in the elbow but with her having lupus and multiple joints that are symptomatic this point she probably has a flare-up of her lupus. She was advised to contact her body man so she can be better treated for her systemic arthralgias Palpitations 06/08/2017 Overview (03/20/2018): Last Assessment & Plan: Cardiac work up in hospital negative. Plan to start Toprol XL 25 mg daily. Chest pain 06/02/2017 Elevated LFTs 02/01/2017 Osteopenia of spine 02/01/2017 BMI 31.0-31.9,adult 01/29/2017 Overview (03/20/2018): Last Assessment & Plan: Weight is stable. Discussed the patient's BMI. The BMI is above average; BMI management plan is completed. General weight loss/lifestyle modification strategies discussed (elicit support from others; identify saboteurs; non-food rewards, etc). Menopausal symptoms 01/23/2017 Overview (03/20/2018): Last Assessment & Plan: Arrange DEXA. Check FSH, Lh, estrodial and progesterone levels. Restless leg syndrome 01/23/2017 Overview (03/20/2018): Last Assessment & Plan: Plan to check ferritin and Vitamin B12 levels. Hope will improve when Lyrica is started. Vitamin D deficiency 01/23/2017 Overview (03/20/2018): Last Assessment & Plan: - will check Vit D level - continue supplement as needed Right rotator cuff tendinitis 12/06/2016 Overview (03/20/2018): Last Assessment & Plan: Patient gotten relatively good relief from previous cortisone injection with the injection wearing off wanted proceed with a follow-up injection. We reviewed the treatment options patient elected undergo a shot today. She tolerated the procedure well. Right rotator cuff tendinitis 12/06/2016 Overview (09/03/2018): Last Assessment & Plan: Patient's symptoms and exam are most fitting of rotator cuff tendinitis. After reviewing the treatment options patient elected undergo a follow-up cortisone injection today. She was advised if she is not getting lasting relief further workup with an MRI would be indicated to rule out the development of a tear Tear of right rotator cuff 11/24/2016 Overview (03/20/2018): Last Assessment & Plan: There high-grade partial-thickness tear or full-thickness tear of the rotator cuff. Would recommend an MRI to evaluate the integrity of the cuff initiate appropriate treatment once results are available Tear of right rotator cuff 11/24/2016 Overview (05/28/2020): Last Assessment & Plan: There high-grade partial-thickness tear or full-thickness tear of the rotator cuff. Would recommend an MRI to evaluate the integrity of the cuff initiate appropriate treatment once results are available Hepatic steatosis 01/08/2016 Shortness of breath 01/08/2016 PNAR (perennial non-allergic rhinitis) 6 Hyperfunctional dysphonia 12/03/2015 Pachyderma of larynx 12/03/2015 Laryngopharyngeal reflux 12/03/2015 Referred otalgia 12/03/2015 Snoring 12/03/2015 Persistent hypersomnia 12/03/2015 Tobacco use 12/03/2015 Overview (03/20/2018): Last Assessment & Plan: - encourage cessation. Marijuana use 12/03/2015 Arthralgia of multiple unspecified joints 2013 Overview (03/20/2018): Overview: Multiple joint pain Last Assessment & Plan: - add meloxicam for joint pains Unknown and unspecified causes of morbidity 07/04 Overview (05/28/2020): Reflux Fibromyalgia 12/27/2011 Overview (03/20/2018): Overview: Fibromyalgia Last Assessment & Plan: - continue current medications and encouraged activity Resolved Problems Problem Noted Date Diagnosed Date Resolved Date Smoker 01/23/2017 03/25/2024 Overview (05/28/2020): Last Assessment & Plan: - encourage cessation. Fibromyalgia 12/27/2011 03/25/2024 Overview (05/28/2020): Fibromyalgia Last Assessment & Plan: - continue current medications and encouraged activity Fibromyalgia 12/27/2011 03/25/2024 Overview (2021): Last Assessment & Plan: Condition: stable Continue medications as prescribed and follow up with PCP/specialist as scheduled. Follow up in: six months Encounters Date Type Department Care Team Description 02/21/2025 Refill [facility] [address] [place] [address] Homer Alcala MD Medication Refill 02/12/2025 Transcribe Orders [facility] [address] [place] [address] Sujata Winn, SPORTS PHYSICIAN, ART SALES CONSULTANT Cervical radiculopathy (Primary Dx); Spinal stenosis in cervical region 02/08/2025 Results Follow-Up [facility] [address] [place] [address] Homer Alcala MD RENÉ SCREENING BILATERAL DIGITAL W CAD W DARSHAN 02/07/2025 11:40 AM JACQUARD CARD LACER - 02/07/2025 11:59 PM JACQUARD CARD LACER [facility] M[facility] [address] [place] [address] Homer Alcala MD Discharge Disposition: Discharged to home or Selfcare 02/07/2025 Travel 02/04/2025 MyChart RX Renewal [facility] [address] [place] [address] Homer Alcala MD Medication Renewal Request 02/04/2025 MyChart RX Renewal [facility] [address] [place] [phone] Ryann Rivera, SPORTS PHYSICIAN, ART SALES CONSULTANT Medication Renewal Request 02/04/2025 Refill [facility] [address] [place] [address] Homer Alcala MD Medication Refill 01/28/2025 10:00 AM JACQUARD CARD LACER Office Visit [facility] Neurology [facility] [address] [place] [address] Ayala Weaver APRN, OIL TESTER Seizure (Primary Dx); Hemiparesis affecting right side as late effect of cerebrovascular accident (CVA); History of stroke Discharge Disposition: Discharged to home or Selfcare 01/28/2025 9:30 AM JACQUARD CARD LACER Office Visit [facility] [address] [place] [address] Homer Alcala MD Primary insomnia (Primary Dx); Type 2 diabetes mellitus without complication, without long-term current use of insulin; Acquired hypothyroidism; Coronary artery disease due to lipid rich plaque; Left wrist pain Discharge Disposition: Discharged to home or Selfcare 01/28/2025 Telephone [facility] Gastroenterology [facility] [address] [place] [address] Viktor Mcclure MD Appointment; Referral 01/28/2025 Travel 01/23/2025 Patient Outreach [facility] [employer] [address] [place] [address] Yuni Meneses, ANANDA 01/15/2025 11:45 AM JACQUARD CARD LACER Physical Therapy [facility] Rehab at [facility] [address], [place] [address] [phone] Ramesh Saenz, DPM Michelle Patel M, PT Neck pain (Primary Dx) Discharge Disposition: Discharged to home or Selfcare 01/15/2025 [facility]Chart [facility] [place] [address] Homer Alcala MD Medication Renewal Request 01/15/2025 Travel 01/15/2025 Transcribe Orders [facility] [address] [place] [address] Homer Alcala MD Visit for screening mammogram (Primary Dx) 01/14/2025 Refill [facility] [address] [place] [phone] Homer Alcala MD Need Order 01/14/2025 Refill [facility] Cardiology [facility] [address] [place] [phone] Homer Alcala MD Medication Refill 01/13/2025 Telephone [facility] [address] [place] [address] Homer Alcala MD 01/09/2025 9:15 AM JACQUARD CARD LACER Physical Therapy [facility] Rehab at [address], [address] [phone] Ramesh Saenz, DPM Michelle Patel, PT Neck pain (Primary Dx) Discharge Disposition: Discharged to home or Selfcare 01/07/2025 5:15 PM JACQUARD CARD LACER Office Visit [facility] [address] [place] [phone] Homer Alcala MD Pain of upper abdomen (Primary Dx); Screening for colon cancer Discharge Disposition: Discharged to home or Selfcare 01/07/2025 Travel 01/06/2025 MyChart RX Renewal [facility] [address] [place] [address] Homer Alcala MD Medication Renewal Request 01/06/2025 MyChart [facility] [place] [address] Ryann Rivera APRN, ART SALES CONSULTANT Medication Renewal Request 01/06/2025 MyChart RX Renewal [facility] Family Medicine [facility] [address] [place] [address] Homer Alcala MD Medication Renewal Request 01/02/2025 10:45 AM CDT Physical Therapy [facility] Re[facility] at [facility] [address], [address] [place] [address] Ramesh Saenz, DPM Patel, Michelle M, PT Neck pain (Primary Dx) Discharge Disposition: Discharged to home or Selfcare 01/02/2025 Results Follow-Up [facility] Neurology [facility] [address] [place] [address] Ayala Weaver APRN, OIL TESTER MRI BRAIN W/O CONTRAST 01/02/2025 Plan of Care Documentation [facility] at [facility] [address] [place] [address] 12/31/2024 1:45 PM CDT Physical Therapy [facility] at [facility] [address], [address] [place] [address] Ramesh Saenz, DPM Patel, Michelle M, PT Neck pain (Primary Dx) Discharge Disposition: Discharged to home or Selfcare 12/31/2024 1:00 PM CDT Speech Therapy [facility] at [facility] [address] [place] [address] Ayala Weaver APRN, Michelle Arvizu, MS [facility] COUNSEL Focal neurological deficit; Expressive aphasia Discharge Disposition: Discharged to home or Selfcare 12/31/2024 8:00 AM CDT - 12/31/2024 11:59 PM CDT Hospital [facility] MRI [address] [place] [address] Ayala Weaver, SPORTS PHYSICIAN, OIL TESTER Discharge Disposition: Discharged to home or Selfcare 12/31/2024 Travel 12/26/2024 9:15 AM CDT Physical Therapy [facility] [address] [place] [address] Ramesh Saenz, DPM Patel, Michelle M, PT Neck pain (Primary Dx) Discharge Disposition: Discharged to home or Selfcare 12/24/2024 8:45 AM CDT Physical Therapy [facility] at [facility] [address] [place] [address] Ramesh Saenz, DPM Patel, Michelle M, PT Neck pain (Primary Dx) Discharge Disposition: Discharged to home or Selfcare 12/24/2024 Travel 12/19/2024 8:30 AM CDT Physical Therapy [facility] at [facility] [address] [place] [address] Ramesh Saenz, DPM Patel, Michelle M, PT Discharge Disposition: Discharged to home or Selfcare 12/17/2024 11:45 AM CDT Physical Therapy [facility] at [facility] [address] [place] [address] Ramesh Saenz, DPM Patel, Michelle M, PT Neck pain (Primary Dx) Discharge Disposition: Discharged to home or Selfcare 12/17/2024 10:30 AM CDT Office Visit [facility] Medical [facility] - Neurology [facility] [address] [place] [address] Ayala Weaver, SPORTS PHYSICIAN, OIL TESTER Focal neurological deficit (Primary Dx); Expressive aphasia; Seizure; Hemiparesis affecting right side as late effect of cerebrovascular accident (CVA); History of stroke Discharge Disposition: Discharged to home or Selfcare 12/17/2024 Telephone [facility] [address] [place] [address] Homer Alcala MD 12/16/2024 Travel 12/15/2024 MyChart RX Renewal [facility] [address] [place] [address] Homer Alcala MD Medication Renewal Request 12/12/2024 8:30 AM CDT Physical Therapy [facility] Rehab at [address], [address] [place] [address] Ramesh Saenz, DPM Henry Diana, RESEARCH ASSOCIATE POLICY Neck pain (Primary Dx) Discharge Disposition: Discharged to home or Selfcare 12/12/2024 Refill [facility] [address] [place] [address] Homer Alcala MD Medication Refill 12/12/2024 Telephone [facility] [address] [place] [address] Homer Alcala MD Medication Management 12/11/2024 Plan of Care Documentation [facility] Rehab at [address] [place] [address] 12/10/2024 1:45 PM CDT Physical Therapy [facility] at [facility] [address] [place] [address] Homer Alcala MD Middleton, Trisha M, PT Neck pain (Primary Dx) Discharge Disposition: Discharged to home or Selfcare 12/10/2024 Travel 12/09/2024 Travel 12/09/2024 [facility] [place] [address] Homer Alcala MD Medication Refill 12/04/2024 11:27 AM CDT - 12/04/2024 11:59 PM CDT Hospital [facility] [address] [place] [address] Provider, Not On File Discharge Disposition: Discharged to home or Selfcare 12/02/2024 Documentation Only [facility] [address] [place] [address] Homer Alcala MD 11/28/2024 11:40 AM CDT - 11/28/2024 11:59 PM CDT Hospital Encounter [facility] [address] [place] [address] Provider, Not On File Discharge Disposition: Discharged to home or Selfcare 11/28/2024 Refill [facility] [address] [place] [address] Homer Alcala MD Medication Refill 11/26/2024 Results Follow-Up [facility] [address] [place] [address] CHEST W/O CONTRAST 11/26/2024 MyChart RX Renewal [facility] [address] [place] [address] Homer Alcala MD Medication Renewal Request 11/25/2024 6:19 PM CDT - 11/25/2024 11:59 PM CDT Hospital En[facility] [address] [place] [address] Homer Alcala MD Discharge Disposition: Discharged to home or Selfcare 11/25/2024 6:15 PM CDT - 11/25/2024 6:18 PM CDT Hospital [facility] [address] [place] [address] Provider, Not On File Antonino Ojeda MD Discharge Disposition: Discharged to home or Selfcare 11/25/2024 Travel from Last 3 Months Immunizations Immunization Administration Dates Next Due Covid-19, Mrna, Lnp-s, Bival ent, Moderna, 50 Mcg or 25 mcg dose 02/02/2022 Covid-19, Mrna, Lnp-s, Pf, 1 00 Mcg Or 50 Mcg Dose (MODERNA) 06/12/2020,05/15/2020 Influenza Seasonal, Intrader mal, Preservative Free 01/01/2015 Influenza Vaccine 01/04/2018,12/20/2010,01/13/20 10 Influenza Vaccine less than 3 yrs 12/17/2024 Influenza Vaccine, MDCK,quad rivalent, pres free 01/08/2020 Influenza Vaccine, Quadrivalent, PF 04/07,02/17/2021,01/08/2020,01/11,01/04/2018,12/05/2017,01/23/2017 Influenza Vaccine,unspecifie d Formulation 03/10/2021,01/08/2020 Influenza, Injectable, Mdck, Preservative Free 01/08/2020 Influenza, Injectable, Quadrivalent 04/2017,01/23/2017,12/20/2010,01/12 Influenza, Seasonal, Injecta ble, Undefined 12/04/2013,11/04/2012,12/23/2007 Influenza, recombinant, trivalent, PF 11/28/2023 Influenza,Split Virus,Trivalent,Injectable,PF 12/21/2024,11/28/2023 Pneumococcal conjugate PCV20 , polysaccharide [id number] conjugate, adjuvant, PF 05/03/2023 TD VACCINE 03/24/2008 TDAP Vaccine 05/03/2023,06/20/2022 Td Vaccine (preservative free) 03/24/2008 Td, Adsorbed, Preservative F ree, Adult Use, Lf Unspecified 03/24/2008 Zoster Vaccine Recombinant 02/02/2022,06/19/2021 Family History * Patient is adopted Medical History Relation Name Comments No Known Problems Mother Multiple Sclerosis Sister x5 Rheumatoid Arthritis Sister x5 Relation Name Status Comments Brother x1 Father not biological Other Mother Sister x5 Social History Tobacco Use Types Packs/Day Years Used Date Smoking Tobacco: Former Cigarettes 0 Q uit: 03/13/1988 Smokeless Tobacco: Never Tobacco Cessation:Counseling Given: No Alcohol Use Standard Drinks/Week Comments Not Currently 0 (1 standard drink = 0.6 oz pur e alcohol) seldom [facility] Utilities Answer Date Recorded In the [...] declined 04/16/2024 How often do you attend faith or catholic serv ices? 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 Not on file Not on file Last Filed Vital Signs Vital Sign Reading Time Taken Comments Blood Pressure 100/64 01/28/2025 10:03 AM JACQUARD CARD LACER Pulse 66 01/28/2025 10:03 AM JACQUARD CARD LACER Temperature 36.3 C (97.3 F) 01/28/2025 10:03 AM JACQUARD CARD LACER Respiratory Rate 16 01/28/2025 10:03 AM JACQUARD CARD LACER Oxygen Saturation 98% 01/28/2025 10:03 AM JACQUARD CARD LACER Inhaled Oxygen Concentration - - Weight 69.4 kg (153 lb) 01/28/2025 10:03 AM JACQUARD CARD LACER Height 162.6 cm (5' 4) 01/28/2025 10:03 AM JACQUARD CARD LACER Body Mass Index 26.26 01/28/2025 10:03 AM JACQUARD CARD LACER Plan of Treatment Upcoming Encounters Date Type Department Care Team (Latest Contact Info) Description 03/03/2025 10:00 AM JACQUARD CARD LACER Office Visit [facility] Medical [facility] - Orthopedic Surgery - [place] [address] [place] [address] Homer Alcala MD #[address] [facility] [address] [place] [address] Ann Graham MD #[address] [address] 03/04/2025 2:00 PM JACQUARD CARD LACER Office Visit [facility] Cardiology - [place] [address] [place] [address] Homer Alcala MD #[address] [address] Carolin Sykes, SPORTS PHYSICIAN, ART SALES CONSULTANT 2 [facility] [address] [place] [address] 03/19/2025 10:15 AM JACQUARD CARD LACER [facility] [address] [facility], [facility] [address] [place] [phone] Sujata Winn, SPORTS PHYSICIAN, ART SALES CONSULTANT [address] [place] [address] Michelle Patel, [place] Discharge Disposition: Discharged to home or Selfcare 03/21/2025 1:30 PM JACQUARD CARD LACER [facility] [place] [facility] [place] [id number] Ayala Weaver, SPORTS PHYSICIAN, OIL TESTER #[address] [place] [address] 04/29/2025 9:00 AM JACQUARD CARD LACER [facility] [place] [address] [place] [address] Ayala Weaver, SPORTS PHYSICIAN, OIL TESTER #[address] [place] [address] 05/09/2025 11:00 AM JACQUARD CARD LACER [facility] - [place] [address] [place] [address] Saurav Goyal MD #2 [place] [address] Health Maintenance Due Date Last Done Comments Diabetes: Foot Exam 1968 Hepatitis B Immunization (1 of 3 - 19+ 3-dose series) 06/12/1987 Cologuard 2013 Colonoscopy 2013 Colorectal Cancer Screening 2013 Immunochemical Fecal Occult Blood 2013 Respiratory Syncytial Virus (RSV) Immunization (Adult) (1 - Risk 50-74 years 1-dose series) 2018 Diabetes: Eye Exam 10/25/2023 10/24/2022 Diabetes: Hemoglobin A1c 04/18/2025 025, 07/11/2024, 04/04/2024, Additional history exists Diabetes: Nephropathy Screening 01/09/2026 01/09/2025, 10/16/2024, 07/11/2024, Additional history exists Mammogram 02/07/2026 02/07/2025, 01/05, 07/03/2021, Additional history exists Td Immunization Every 10 Years (Adults With 1 Tdap) 05/03/2033 05/03/2023, 06/20/2022, 03/24/2008, Additional history exists Zoster Immunization Completed 02/02/2022, Hepatitis C Virus (HCV) Screening Completed 04/27/2023, 09/16/2020, 09/07/2018 DTaP/Tdap/Td Immunization Discontinued 2023, 06/20/2022, 03/24/2008, Additional history exists Pneumococcal Immunization (50+ years) Completed 05/03/2023 Pneumococcal Immunization Combined Discontinued 05/03/2023 Influenza Immunization Completed , 12/17/2024, 11/28/2023, Additional history exists SARS-COV-2 Immunization Completed 12/22/19, 02/02/2022, 02/17/2021, Additional history exists Human Papillomavirus (HPV) Immunization (No Doses Required) Completed Meningococcal Immunization (ACWY) Aged Out No longer eligible based on patient's age to complete this topic Rotavirus Immunization Aged Out No lo nger eligible based on patient's age to complete this topic Goals Goal Patient Goal Type Associated Problems Recent Progress Patient-Stated? Author Depression Behavioral Health On track(2024 4:40 PM CDT) Flora Miller LCSW Note: GOAL: Lisseth will manage depressive symptoms more effectively. Goal Reviewed with: patient today Readiness to change: Ready to change Department associated with goal: [facility] Steps to achieve [...] to change Department associated with goal: [facility] Steps to achieve [...] 4:40 PM CDT) Flora Miller, ROBERTO Note: Goal/Objective: Decrease negative impact of chronic illness on mental health. Anticipated Time Frame for Goal Completion: 6 months Goal Reviewed with: Patient Readiness to change: Ready to change Department associated with goal: [facility] Steps to achieve [...] to change Department associated with goal: [facility] Steps to achieve [...] at least 1x/month at least 6 sessions Medical Devices Implanted Type Area Flat Bed Operator Device Identifier Shelf Expiration Date Model / Serial / Lot Medtronic [id number] Spinal Stimulator- 022 Implanted:01/22/20 22 (Quantity not on file) IPG Back [employer] [id number] / [id number] / Description:MRI CONDITIONAL SPINAL STIMULATOR Procedures Procedure Name Priority Date/Time Associated Diagnosis Comments RENÉ SCREENING BILATERAL DIGITAL W CAD W DARSHAN Routine 02/07/2025 12:01 PM JACQUARD CARD LACER Visit for screening mammogram CBC WITH AUTO DIFFERENTIAL Today 01/09/2025 8:26 AM JACQUARD CARD LACER Pain of upper abdomen THYROID SCREEN WITH REFLEX Routine 01/09/2025 8:26 AM JACQUARD CARD LACER Acquired hypothyroidism IMMUNOGLOBULIN A (IGA) - CELIAC Routine 01/09/2025 8:26 AM JACQUARD CARD LACER Pain of upper abdomen GLIADIN IGA ANTIBODY - CELIAC Routine 01/09/2025 8:26 AM JACQUARD CARD LACER Pain of upper abdomen TISSUE TRANSGLUTAMINASE IGA - CELIAC Routine 01/09/2025 8:26 AM JACQUARD CARD LACER Pain of upper abdomen C-REACTIVE PROTEIN (CRP) QUANT Today 01/09/2025 8:26 AM JACQUARD CARD LACER Pain of upper abdomen CELIAC ANTIBODY PANEL Routine 01/09/2025 8:26 AM JACQUARD CARD LACER Pain of upper abdomen COMPLETE BLOOD COUNT (CBC) WITH DIFF Today 01/09/2025 8:26 AM JACQUARD CARD LACER Pain of upper abdomen CMP (COMPREHENSIVE METABOLIC PANEL) Routine 01/09/2025 8:26 AM JACQUARD CARD LACER Anxiety about health Type 2 diabetes mellitus without complication, without long-term current use of insulin Acquired hypothyroidism THYROID SCREEN WITH REFLEX Routine 01/09/2025 8:26 AM JACQUARD CARD LACER Acquired hypothyroidism MRI BRAIN W/O CONTRAST Routine 8:53 AM CDT Focal neurological deficit Expressive aphasia CT REFERENCE IMAGES FOR IMAGE IMPORT Routine 12/04/2024 11:[address] REFERENCE IMAGES FOR IMAGE IMPORT Routine 11/28/2024 11:[address] SINUSES W/O CONTRAST Routine 11/26/19 6:33 PM CDT Chronic maxillary sinusitis CT CHEST W/O CONTRAST Routine 11/25/2024 6:32 PM CDT Stenosis of trachea HEMOGLOBIN A1C W/ ESTIMATED GLUCOSE Routine 10/16/2024 7:58 AM CDT Type 2 diabetes mellitus without complication, without long-term current use of insulin Primary insomnia Acquired hypothyroidism HM DILATED EYE EXAM 10/24/2022 1 2:00 AM CDT HEPATITIS PANEL ACUTE (AHP) Routine 09/16/2020 4:02 PM CDT Ataxia Neuropathy from Last 3 Months or Most Recently Relevant to Health Maintenance Results * [facility] SCREENING BILATERAL DIGITAL W CAD W DARSHAN (02/07/2025 12:01 PM JACQUARD CARD LACER) Anatomical Region Laterality Modality breast Bilateral Mammography 02/07/2025 11:4 1 AM JACQUARD CARD LACER Impressions 02/07/2025 5:39 PM JACQUARD CARD LACER IMPRESSION: There is no mammographic evidence of malignancy. RECOMMENDATION: Annual screening mammography. BI-RADS 1: Negative. Narrative 02/07/2025 5:39 PM JACQUARD CARD LACER [facility] SCREENING BILATERAL DIGITAL W CAD W DARSHAN EXAM DATE: 02/07/2025 11:52 AM HISTORY: 54 years year old Female. Encounter for screening mammogram for malignant neoplasm of breast TECHNIQUE: Standard bilateral mammographic views were obtained. Additional 3D tomographic mammography was also obtained. Current study was also evaluated with a Computer Aided Detection (CAD) system. COMPARISON: Comparison made with previous examination(s) dated (MG) 26-Jan-2024, (MG) 03-Jul-2021. FINDINGS: The breasts are heterogeneously dense, which may obscure small masses. (Category C) No suspicious masses, calcifications, architectural distortion or other findings. us Homer Alcala MD IMG MAMMO ORDERABLES Final Re sult * THYROID SCREEN WITH REFLEX (01/09/2025 8:26 AM JACQUARD CARD LACER) TSH 1.485 0.300 - 5.000 mIU/L 01/09/2025 11:06 AM JACQUARD CARD LACER [facility] Blood Venipuncture / Unknown 01/09/2025 8:26 AM JACQUARD CARD LACER 01/09/2025 10:17 AM JACQUARD CARD LACER us Homer Alcala MD CHEMISTRY ORDERABLES Final Re sult Performing Organization Address City/[facility]/ZIP Co de Phone Number [facility] [address] [place] [address] * IMMUNOGLOBULIN A (IGA) - CELIAC (01/09/2025 8:26 AM JACQUARD CARD LACER) IMMUNOGLOBULIN A 265 65 - 421 mg/dL 01/09/2025 3:27 PM JACQUARD CARD LACER [facility] Blood Venipuncture / Unknown 01/09/2025 8:26 AM JACQUARD CARD LACER 01/09/2025 10:18 AM JACQUARD CARD LACER us Homer Alcala MD IMMUNOLOGY ORDERABLES Final R esult Performing Organization Address [facility] Co de Phone Number [facility] [address] [place] [address], [place] * (ABNORMAL) GLIADIN IGA ANTIBODY - CELIAC (01/09/2025 8:26 AM JACQUARD CARD LACER) DEAMIDATED GLIADIN IGA 20.7(H) <15.0 U/mL 01/09/2025 4:02 PM JACQUARD CARD LACER [facility] Blood Venipuncture / Unknown 01/09/2025 8:26 AM JACQUARD CARD LACER 01/09/2025 10:18 AM JACQUARD CARD LACER Narrative [facility] - 01/09/2025 4:02 PM JACQUARD CARD LACER Antibody testing was performed by multiplex flow immunoassay on the [employer] platform. us Homer Alcala MD IMMUNOLOGY ORDERABLES Final R esult Performing Organization Address City/[facility]/ZIP Co de Phone Number [facility] [address] [place] [address], [place] * TISSUE TRANSGLUTAMINASE IGA - CELIAC (01/09/2025 8:26 AM JACQUARD CARD LACER) TTG IGA <0.5 <15.0 U/mL 01/09/2025 4:02 PM [facility] Blood Venipuncture / Unknown 01/09/2025 8:26 AM JACQUARD CARD LACER 01/09/2025 10:18 AM JACQUARD CARD LACER Narrative [facility] - 01/09/2025 4:02 PM JACQUARD CARD LACER Antibody testing was performed by multiplex flow immunoassay on the [employer] platform. Homer Alcala MD IMMUNOLOGY ORDERABLES Final R esult [facility] [address] [place] [address], * CBC WITH AUTO DIFFERENTIAL (01/09/2025 8:26 AM [facility]) [facility] WBC 7.30 4.00 - 12.00 10(3)/[facility] 01/09/2025 10:27 AM [facility] RBC 5.00 3.80 - 5.30 10(6)/[facility] 01/09/2025 10:27 AM [facility] HEMOGLOBIN (HGB) 13.9 12.0 - 15.8 g/dL 01/09/2025 10:27 AM [facility] HEMATOCRIT (HCT) 43.7 36.0 - 47.0 % 01/09/2025 10:27 AM [facility] MCV 87.4 82.0 - 96.0 fL 01/09/2025 10:27 AM [facility] MCH 27.8 26.0 - 34.0 pg 01/09/2025 10:27 AM [facility] MCHC 31.8 31.0 - 36.0 g/dL 01/09/2025 10:27 AM [facility] PLATELET COUNT 259 140 - 440 10(3)/[facility] 01/09/2025 10:27 AM [facility] RDW 15.3 11.8 - 15.5 % 01/09/2025 10:27 AM [facility] MPV 11.5 9.7 - 12.4 fL 01/09/2025 10:27 AM [facility] NEUTROPHILS 56.8 47.0 - 73.0 % 01/09/2025 10:27 AM [facility] LYMPHOCYTES 31.2 18.0 - 42.0 % 01/09/2025 10:27 AM [facility] MONOCYTES 6.2 4.0 - 12.0 % 01/09/2025 10:27 AM [facility] EOSINOPHILS 4.9 0.0 - 5.0 % 01/09/2025 10:27 AM [facility] BASOPHILS 0.5 0.0 - 1.0 % 01/09/2025 10:27 AM [facility] IMMATURE GRANULOCYTE 0.4 0.0 - 0.4 % 01/09/2025 10:27 AM [facility] ABSOLUTE NEUTROPHILS 4.14 1.60 - 7.70 10(3)/[facility] 01/09/2025 10:27 AM [facility] ABSOLUTE LYMPHOCYTES 2.28 1.30 - 3.20 10(3)/[facility] 01/09/2025 10:27 AM [facility] ABSOLUTE MONOCYTES 0.45 0.20 - 1.00 10(3)/[facility] 01/09/2025 10:27 AM [facility] ABSOLUTE EOSINOPHIL 0.36 0.00 - 0.40 10(3)/[facility] 01/09/2025 10:27 AM [facility] ABSOLUTE BASOPHILS 0.04 0.00 - 0.10 10(3)/[facility] 01/09/2025 10:27 AM [facility] ABSOLUTE IMMATURE GRANULOCYTE 0.03 0.00 - 0.03 10 (3) [facility]. 01/09/2025 10:27 AM [facility] NRBC PER 100 WBC 0 01/10/20 10:27 AM [facility] Blood Venipuncture / Unknown 01/09/2025 8:26 AM [facility] 01/09/2025 10:19 AM JACQUARD CARD LACER us Homer Alcala MD HEMATOLOGY ORDERABLES Final R esult [facility] [address] [place] [address] * (ABNORMAL) CMP (COMPREHENSIVE METABOLIC PANEL) (01/09/2025 8:26 AM JACQUARD CARD LACER) SODIUM 141 136 - 145 mmol/L 01/09/2025 10:46 AM [facility] POTASSIUM 4.8 3.5 - 5.1 mmol/L 01/09/2025 10:46 AM [facility] CHLORIDE 105 98 - 107 mmol/L 01/09/2025 10:46 AM [facility] CO2, VENOUS 27 22 - 30 mmol/L 01/09/2025 10:46 AM [facility] ANION GAP 13.8 <18.0 mmol/L 01/09/2025 10:46 AM [facility] GLUCOSE 96 70 - 99 mg/dL 01/09/2025 10:46 AM [facility] BUN 12 10 - 20 mg/dL 01/09/2025 10:46 AM [facility] CREATININE, BLOOD 0.86 0.60 - 1.00 mg/dL 01/09/2025 10:46 AM [facility] BUN/CREATININE RATIO 14 12 - 20 ratio 01/09/2025 10:46 AM [facility] TOTAL PROTEIN 8.1(H) 6.0 - 8.0 g/dL 01/09/2025 10:46 AM [facility] ALBUMIN 4.6 3.5 - 5.0 g/dL 01/09/2025 10:46 AM [facility] A/G RATIO 1.3 1.0 - 2.2 01/09/2025 10:46 AM [facility] CALCIUM 9.8 8.7 - 10.5 mg/dL 01/09/2025 10:46 AM [facility] T BILI 0.4 0.2 - 1.2 mg/dL 01/09/2025 10:46 AM [facility] SGOT (AST) 41 <43 U/L 01/09/2025 10:46 AM [facility] SGPT (ALT) 41 <56 U/L 01/09/2025 10:46 AM [facility] ALKALINE PHOSPHATASE 147 40 - 150 U/L 01/09/2025 10:46 AM [facility] IS THE PATIENT REQUIRED TO BE FASTING? No 01/09/2025 10:46 AM [facility] GFR, ESTIMATED >60 >=60 01/09/2025 10:46 AM [facility] Comment: Creatinine Clearance is the preferred criteria for selecting drug dose adjustments in renally impaired patients. The GFR is provided as additional pertinent clinical information. GFR is reported in mL/min/1.73 sq m. Calculation based on the 2020 Chronic Kidney Disease Epidemiology Collaboration (CKD-EPI) equation refit without adjustment for race. GFR, EST. >60 >=60 025 10:46 AM [facility] Comment: Creatinine Clearance is the preferred criteria for selecting drug dose adjustments in renally impaired patients. The GFR is provided as additional pertinent clinical information. GFR is reported in mL/min/1.73 sq m. Calculation based on the 2009 Chronic Kidney Disease Epidemiology Collaboration (CKD-EPI). GFR, EST. NONAFRICAN >60 >=60 01/09/2025 10:46 AM [facility] Comment: Creatinine Clearance is the preferred criteria for selecting drug dose adjustments in renally impaired patients. The GFR is provided as additional pertinent clinical information. GFR is reported in mL/min/1.73 sq m. Calculation based on the 2009 Chronic Kidney Disease Epidemiology Collaboration (CKD-EPI). Blood Venipuncture / Unknown 01/09/2025 8:26 AM JACQUARD CARD LACER 01/09/2025 10:19 AM JACQUARD CARD LACER us Homer Alcala MD CHEMISTRY ORDERABLES Final Re sult [facility] [place] [address] * C-REACTIVE PROTEIN (CRP) QUANT (01/09/2025 8:26 AM JACQUARD CARD LACER) C-REACTIVE PROTEIN 0.22 <0.50 mg/dL 01/09/2025 10:46 AM JACQUARD CARD LACER [facility] Blood Venipuncture / Unknown 01/09/2025 8:26 AM JACQUARD CARD LACER 01/09/2025 10:19 AM JACQUARD CARD LACER us Homer Alcala MD CHEMISTRY ORDERABLES Final Re sult [facility] [place] [address] * MRI BRAIN W/O CONTRAST (12/31/2024 8:53 AM CDT) Anatomical Region Laterality Modality Head N/A Magnetic Resonan ce 12/31/2024 8:53 AM CDT Impressions 01/02/2025 6:10 AM CDT IMPRESSION: No acute abnormality of the brain with no evidence of acute hemorrhage or ischemia. Interval development of left posterior frontal lobe encephalomalacia. Narrative 01/02/2025 6:10 AM CDT MRI BRAIN W/O CONTRAST : 12/31/2024 8:53 AM DICTATING PHYSICIAN: EDWIN MARTINS, [facility]. HISTORY: As below. ADDITIONAL TECHNOLOGIST HISTORY: Other symptoms and signs involving the nervous system, Aphasia COMPARISON: 09/22/2020 TECHNIQUE: Multiplanar multisequence MRI imaging of the brain was performed without contrast. FINDINGS: Unenhanced images through the brain demonstrate no evidence of acute intracranial hemorrhage or extra-axial fluid collections. There is no focal restricted diffusion/acute ischemia on review of diffusion weighted imaging. Cerebral parenchyma: Age-appropriate global atrophy with symmetrical and proportionate sulcal and ventricular enlargement. There are patchy white matter T2 hyperintensities which may indicate small vessel ischemic changes. Interval development of posterior left frontal encephalomalacia. Posterior fossa: Small chronic infarcts right cerebellum. Sella turcica, skull base, paranasal sinuses, mastoid air cells: Normal Orbits: No acute abnormality. Calvarium: No focal lesions. Additional findings: 6 mm right paramedian adenoid tonsillar cyst again seen, unchanged. Procedure Note Edwin Martins MD - 01/02/2025 MRI BRAIN W/O CONTRAST : 12/31/2024 8:53 AM DICTATING PHYSICIAN: EDWIN MARTINS, [facility]. HISTORY: As below. ADDITIONAL TECHNOLOGIST HISTORY: Other symptoms and signs involving thenervous system, Aphasia COMPARISON: 09/22/2020 TECHNIQUE: Multiplanar multisequence MRI imaging of the brain was performed withoutcontrast. FINDINGS: Unenhanced images through the brain demonstrate no evidence of acuteintracranial hemorrhage or extra-axial fluid collections. There is no focal restricted diffusion/acute ischemia on review ofdiffusion weighted imaging. Cerebral parenchyma: Age-appropriate global atrophy with symmetrical andproportionate sulcal and ventricular enlargement. There are patchy whitematter T2 hyperintensities which may indicate small vessel ischemicchanges. Interval development of posterior left frontalencephalomalacia. Posterior fossa: Small chronic infarcts right cerebellum. Sella turcica, skull base, paranasal sinuses, mastoid air cells: Normal Orbits: No acute abnormality. Calvarium: No focal lesions. Additional findings: 6 mm right paramedian adenoid tonsillar cyst againseen, unchanged. IMPRESSION: No acute abnormality of the brain with no evidence of acute hemorrhage orischemia. Interval development of left posterior frontal lobe encephalomalacia. us Ayala Weaver APRN, OIL TESTER IMG MR ORDERABLES Fi nal Result * CT REFERENCE IMAGES FOR IMAGE IMPORT (12/04/2024 11:27 AM CDT) Only the most recent of2 resultswithin the time period is included. us Not On File Provider IMG CT ORDERABLES Final Res ult * CT SINUSES W/O CONTRAST (11/25/2024 6:33 PM CDT) Anatomical Region Laterality Modality Head N/A Computed Tomogra phy 11/25/2024 6:33 PM CDT Impressions 11/25/2024 6:48 PM CDT IMPRESSION: 1. No evidence for significant acute sinusitis. Leftward nasal septal deviation is noted as well as cartilaginous perforation of the anterior nasal septum. Correlate with physical examination findings and surgical history. 2. Mild bronchial wall thickening can be seen with a bronchitis. No suspicious lung nodule or consolidation. Narrative 11/25/2024 6:[address] CHEST W/O CONTRAST, CT SINUSES W/O CONTRAST : 11/25/2024 6:32 PM DICTATING PHYSICIAN: EDWIN MARTINS [facility]. HISTORY: As below. ADDITIONAL TECHNOLOGIST HISTORY: Other specified diseases of upper respiratory tract TECHNIQUE: Multiple helical axial images were obtained through the sinuses followed by the chest without contrast. Coronal reformats were performed. Image acquisition performed utilizing automated exposure control (AEC) and iterative reconstruction software in order to lower patient dose. RADIATION DOSE: DLP 360 COMPARISON: None. FINDINGS: Sinuses: Frontal sinuses: Clear with no air-fluid levels. Ethmoid air cells: Tiny amount of scattered fluid. Sphenoid sinuses: Clear with no air-fluid levels. Maxillary sinuses: Clear with no air-fluid levels. Osteomeatal units: Widely patent. Nasal septum: Leftward deviation. Perforation of the anterior cartilaginous septum. Other soft tissue structures: Within normal limits. Chest: Heart and great vessels: Minimal coronary calcification. Some fat infiltration within the left ventricular apex. Pericardium: No fluid or thickening. Lymph nodes: No evidence for pathologic axillary, mediastinal, or hilar lymphadenopathy. Esophagus: Normal. Pleura: No pleural effusion or thickening. Lung parenchyma: The lungs are clear bilaterally with no suspicious nodule or airspace consolidation seen. Mild diffuse bronchial wall thickening. Osseous structures and soft tissues: No osseous lytic or blastic lesion. No acute traumatic finding. Age-appropriate degenerative changes seen. Chronic right rib fractures. Thoracic epidural stimulator. Cephalad abdomen: Hiatal hernia surgery. Procedure Note Edwin Martins MD - 11/25/2024 CT CHEST W/O CONTRAST, CT SINUSES W/O CONTRAST : 11/25/2024 6:32 PM DICTATING PHYSICIAN: EDWIN MARTINS [facility]. HISTORY: As below. ADDITIONAL TECHNOLOGIST HISTORY: Other specified diseases of upperrespiratory tract TECHNIQUE: Multiple helical axial images were obtained through the sinuses followedby the chest without contrast. Coronal reformats were performed. Imageacquisition performed utilizing automated exposure control (AEC) anditerative reconstruction software in order to lower patient dose. RADIATION DOSE: DLP 360 COMPARISON: None. FINDINGS: Sinuses: Frontal sinuses: Clear with no air-fluid levels. Ethmoid air cells: Tiny amount of scattered fluid. Sphenoid sinuses: Clear with no air-fluid levels. Maxillary sinuses: Clear with no air-fluid levels. Osteomeatal units: Widely patent. Nasal septum: Leftward deviation. Perforation of the anteriorcartilaginous septum. Other soft tissue structures: Within normal limits. Chest: Heart and great vessels: Minimal coronary calcification. Some fatinfiltration within the left ventricular apex. Pericardium: No fluid or thickening. Lymph nodes: No evidence for pathologic axillary, mediastinal, or hilarlymphadenopathy. Esophagus: Normal. Pleura: No pleural effusion or thickening. Lung parenchyma: The lungs are clear bilaterally with no suspicious noduleor airspace consolidation seen. Mild diffuse bronchial wall thickening. Osseous structures and soft tissues: No osseous lytic or blastic lesion.No acute traumatic finding. Age-appropriate degenerative changes seen.Chronic right rib fractures. Thoracic epidural stimulator. Cephalad abdomen: Hiatal hernia surgery. IMPRESSION: 1. No evidence for significant acute sinusitis. Leftward nasal septaldeviation is noted as well as cartilaginous perforation of the anteriornasal septum. Correlate with physical examination findings and surgicalhistory. 2. Mild bronchial wall thickening can be seen with a bronchitis. Nosuspicious lung nodule or consolidation. Homer Alcala MD IMG CT ORDERABLES Final Resul t * CT CHEST W/O CONTRAST (11/25/2024 6:32 PM CDT) Anatomical Region Laterality Modality Chest N/A Computed Tomogra phy 11/25/2024 6:32 PM CDT Impressions 11/25/2024 6:48 PM CDT IMPRESSION: 1. No evidence for significant acute sinusitis. Leftward nasal septal deviation is noted as well as cartilaginous perforation of the anterior nasal septum. Correlate with physical examination findings and surgical history. 2. Mild bronchial wall thickening can be seen with a bronchitis. No suspicious lung nodule or consolidation. Narrative 11/25/2024 6:[address] CHEST W/O CONTRAST, CT SINUSES W/O CONTRAST : 11/25/2024 6:32 PM DICTATING PHYSICIAN: EDWIN MARTINS [facility]. HISTORY: As below. ADDITIONAL TECHNOLOGIST HISTORY: Other specified diseases of upper respiratory tract TECHNIQUE: Multiple helical axial images were obtained through the sinuses followed by the chest without contrast. Coronal reformats were performed. Image acquisition performed utilizing automated exposure control (AEC) and iterative reconstruction software in order to lower patient dose. RADIATION DOSE: DLP 360 COMPARISON: None. FINDINGS: Sinuses: Frontal sinuses: Clear with no air-fluid levels. Ethmoid air cells: Tiny amount of scattered fluid. Sphenoid sinuses: Clear with no air-fluid levels. Maxillary sinuses: Clear with no air-fluid levels. Osteomeatal units: Widely patent. Nasal septum: Leftward deviation. Perforation of the anterior cartilaginous septum. Other soft tissue structures: Within normal limits. Chest: Heart and great vessels: Minimal coronary calcification. Some fat infiltration within the left ventricular apex. Pericardium: No fluid or thickening. Lymph nodes: No evidence for pathologic axillary, mediastinal, or hilar lymphadenopathy. Esophagus: Normal. Pleura: No pleural effusion or thickening. Lung parenchyma: The lungs are clear bilaterally with no suspicious nodule or airspace consolidation seen. Mild diffuse bronchial wall thickening. Osseous structures and soft tissues: No osseous lytic or blastic lesion. No acute traumatic finding. Age-appropriate degenerative changes seen. Chronic right rib fractures. Thoracic epidural stimulator. Cephalad abdomen: Hiatal hernia surgery. Procedure Note Edwin Martins MD - 11/25/2024 CT CHEST W/O CONTRAST, CT SINUSES W/O CONTRAST : 11/25/2024 6:32 PM DICTATING PHYSICIAN: EDWIN MARTINS [facility]. HISTORY: As below. ADDITIONAL TECHNOLOGIST HISTORY: Other specified diseases of upperrespiratory tract TECHNIQUE: Multiple helical axial images were obtained through the sinuses followedby the chest without contrast. Coronal reformats were performed. Imageacquisition performed utilizing automated exposure control (AEC) anditerative reconstruction software in order to lower patient dose. RADIATION DOSE: DLP 360 COMPARISON: None. FINDINGS: Sinuses: Frontal sinuses: Clear with no air-fluid levels. Ethmoid air cells: Tiny amount of scattered fluid. Sphenoid sinuses: Clear with no air-fluid levels. Maxillary sinuses: Clear with no air-fluid levels. Osteomeatal units: Widely patent. Nasal septum: Leftward deviation. Perforation of the anteriorcartilaginous septum. Other soft tissue structures: Within normal limits. Chest: Heart and great vessels: Minimal coronary calcification. Some fatinfiltration within the left ventricular apex. Pericardium: No fluid or thickening. Lymph nodes: No evidence for pathologic axillary, mediastinal, or hilarlymphadenopathy. Esophagus: Normal. Pleura: No pleural effusion or thickening. Lung parenchyma: The lungs are clear bilaterally with no suspicious noduleor airspace consolidation seen. Mild diffuse bronchial wall thickening. Osseous structures and soft tissues: No osseous lytic or blastic lesion.No acute traumatic finding. Age-appropriate degenerative changes seen.Chronic right rib fractures. Thoracic epidural stimulator. Cephalad abdomen: Hiatal hernia surgery. IMPRESSION: 1. No evidence for significant acute sinusitis. Leftward nasal septaldeviation is noted as well as cartilaginous perforation of the anteriornasal septum. Correlate with physical examination findings and surgicalhistory. 2. Mild bronchial wall thickening can be seen with a bronchitis. Nosuspicious lung nodule or consolidation. us Not On File Provider IMG CT ORDERABLES Final Res ult * HEMOGLOBIN A1C W/ ESTIMATED GLUCOSE (10/16/2024 7:58 AM CDT) HGB-A1C 5.2 4.0 - 6.0 % 10/16/2024 8:36 AM CDT [facility] Est Average Glucose 102.5 mg/dL 10/16/2024 8:36 AM CDT [facility] Blood Venipuncture / Unknown 10/16/2024 7:58 AM CDT 10/16/2024 8:11 AM CDT Narrative [facility] - 10/16/2024 8:36 AM CDT HEMOGLOBIN A1C: DIABETIC PATIENTS: WELL-CONTROLLED: 6.2 - 7.0 INTERMEDIATE WELL-CONTROLLED: 7.0 - 9.0 POORLY-CONTROLLED: >9.0 Specimens containing greater than 5% of Hemoglobin F may result in lower than expected % HbA1C results. Homer Alcala MD CHEMISTRY ORDERABLES Final Re sult [facility] [address] [place] [address] * HM DILATED EYE EXAM (10/24/2022 12:00 AM CDT) 10/24/2022 Damaso Vazquez MD PROCEDURE/MINOR SURGICAL ORDERAB LES Final Result Performing Organization Address City/[facility]/ZIP Co de Phone Number SCAN * HEPATITIS PANEL ACUTE (AHP) (09/16/2020 4:02 PM CDT) HEPATITIS A IGM ANTIBODY NON DETECTED NON DETECTED [address] B 09/17/2020 4:12 PM CDT [facility] Comment: IGM Antibodies to HAV not detected. Does not exclude early acute or recovered HAV infection. HEP B CORE AB (IGM) NON DETECTED NON DETECTED [address] 09/17/2020 4:12 PM CDT [facility] Comment:IGM anti-HBC not det ected. Does not exclude the possibility of exposure to or infection with HBV. HEPATITIS B SURFACE ANTIGEN NON DETECTED NON DETECTED [address] B 09/17/2020 4:12 PM CDT [facility] Comment:A nonreactive test r esult does not exclude the possibility of exposure to or infection with Hepatitis B virus. A nonreactive test result in individuals with prior exposure to hepatitis B may be due to antigen levels below the detection limit of this assay or lack of antigen reactivity to the antibodies in this assay. hepatitis C antibody 0.21 <1 S/[place] [id number] 09/17/2020 4:12 PM CDT [facility] Comment: Signal/Cutoff ratio < 0.79 is Nondetected Signal/Cutoff ratio 0.80-0.99 is Grayzone Signal/Cutoff ratio > 0.99 is Detected Supplemental assays are recommended if signal/cutoff ratio is >/=1.00. Signal/cutoff ratio result >/= 5.00 is 97% predictive of positivity for recombinant immunoblot assay (RIBA) and will be reported to the [place] Department of Public Health as required. Blood Venipuncture / Unknown 09/16/2020 4:02 PM CDT 09/17/2020 9:41 AM CDT us Damaso Vazquez MD HEMATOLOGY ORDERABLES Final Resu lt [facility] [address] [place] [address], from Last 3 Months or Most Recently Relevant to Health Maintenance Insurance MEDICAID [place] Advance Directives * Full Code (Latest Code Status on File) Date Activated Date Inactivated Comments 07/12/2023 11:03 AM 10/08/2023 9:38 AM Healthcare Agents on File Name Relationship Healthcare Agent Relationship Communication Fela Laurent Sister/Step-Sister Healthcare POA Avni Anton Son/Step-Son First Alternate Healthcare POA Rahat Godfrey Friend Second Alternate Healthcare POA Care Teams Nurse Quality Relationship Specialty Start Date End Date Homer Alcala MD [address] [place] [id number] PCP - General Family Medicine 09/01/23 Yuliana Florez, [place] Advanced Practice Nurse 01/24/18 Michel Yanez, SPORTS PHYSICIAN, ART SALES CONSULTANT [address] [place] [address] Nurse Practitioner Advanced Practice Nurse 12/28/21 Laureano Quigley MD #[address] [address] Consulting Physician Urology 02/04/22 Saurav Goyal MD [address] [place] [address] Consulting Physician Pulmonary Disease 07/28/23 Ayala Weaver, SPORTS PHYSICIAN, OIL TESTER [address] [place] [address] Nurse Practitioner Neurology 12/18/23
--- OUTSIDE RECORDS SUMMARY | 2025-02-22 12:13 | XMS_ITS | Encounter Summary ---
Author Organization [facility] Address [address] [place] [address] Phone Care Team Providers Care Railway Head Tender Name Role Phone Yuliana Florez APN Unavailable Unavailab Damaso Chaudhari MD Primary Care Provider [phone] Michel Yanez APRN, QUALIFICATION ENGINEER Unavailable [phone] Laureano Quigley MD Unavailable [phone] Elsa Kenny APRN, QUALIFICATION ENGINEER Unavailable + [phone] Saurav Goyal MD Unavailable Homer Alcala MD Primary Care Provider [phone] Yuni Meneses BUSINESS ASSISTANT Unavailable Unavailab Ayala Orozco APRN, MANAGER PROGRAMMING Unavailable + [phone] Reason for Visit * Reason Comments Medication Refill Encounter Details Date Type Department Care Team (Late st Contact Info) Description 07/15/2020 Refill [facility] [address] [place] [address] Felecia Saenz, HOOKER ON, QUALIFICATION ENGINEER [address] [place] [address] Medication Refill Social History Tobacco Use Types [...] have Coronavirus / COVID-19? No / Unsure 07/03/2020 3:03 PM CDT documented as of this encounter Miscellaneous Notes * Telephone Encounter - Darline Seth RN - 07/15/2020 11:17 AM CDT Per nursing clinical judgement, provider to review and approve the medication(s) order(s) if appropriate. Requested Prescriptions Pending Prescriptions Disp Refills amLODIPine (NORVASC) 5 MG Tablet [Pharmacy Med Name: AMLODIPINE BESYLATE 5 MG TA 5 Tablet] 30 Tablet 1 Sig: TAKE 1 TAB BY MOUTH DAILY. Calcium-Channel Blockers Protocol Passed - 07/15/2020 8:47 AM Passed - BP on record in the past year Clinician-entered: BP Readings from Last 3 Encounters: 06/30/20 90/60 05/28/20 130/70 03/09/20 166/66 Patient-entered: No data recorded Passed - Visit with relevant provider in past 12 months or upcoming 90 days Recent Visits Date Type Provider Dept 06/30/20 Office Visit Damaso Vazquez MD [facility] 05/28/20 Office Visit Damaso Vazquez MD [facility] 02/10/20 Office Visit Felecia Saenz, CUTTER WET MACHINE, QUALIFICATION ENGINEER [facility] [address] 08/02/19 Office Visit Felecia Saenz APN, QUALIFICATION ENGINEER [facility] [place] Showing recent visits within past 365 days and meeting all other requirements Future Appointments Date Type Provider Dept 08/11/20 Appointment Damaso Vazquez MD [facility] Showing future appointments within next 90 days and meeting all other requirements documented in this encounter Plan of Treatment Upcoming Encounters Date Type Department Care Team (Latest Contact Info) Description 03/03/2025 10:00 AM CASINO FLOOR SUPERVISOR Office Visit [facility] - Orthopedic Surgery - [place] [address] [place] [address] Homer Alcala MD #[address] [address] Ann Graham MD #[address] [address] 03/04/2025 2:00 PM CASINO FLOOR SUPERVISOR Office Visit [facility] Cardiology - [place] [address] [place] [address] Homer Alcala MD #[address] [address] Carolin Sykes APRN, QUALIFICATION ENGINEER [address] [address] 03/19/2025 10:15 AM CASINO FLOOR SUPERVISOR Physical Therapy [facility] at [address] [address] Sujata Winn, HOOKER ON, QUALIFICATION ENGINEER [address] [place] [address] Michelle Patel, PT [place] Discharge Disposition: Discharged to home or Selfcare 03/21/2025 1:30 PM CASINO FLOOR SUPERVISOR Office Visit [facility] Neurology [facility] [address] [place] [address] Ayala Weaver, HOOKER ON, MANAGER PROGRAMMING [address] [place] [address] 04/29/2025 9:00 AM CASINO FLOOR SUPERVISOR Office Visit [facility] Neurology - [place] [address] [place] [address] Ayala Weaver, HOOKER ON, MANAGER PROGRAMMING [address] [place] [address] 05/09/2025 11:00 AM CASINO FLOOR SUPERVISOR Office Visit [facility] Pulmonology & Sleep Medicine [facility] [address] [place] [address] Saurav Goyal MD [address] [place] [address] documented as of this encounter Goals Goal Patient Goal Type Associated Problems Recent Progress Patient-Stated? Author Depression Behavioral Health On track(2024 4:40 PM CDT) Flora Miller, MANAGER GIFT Note: GOAL: Lisseth will manage depressive symptoms more effectively. Goal Reviewed with: patient today Readiness to change: Ready to change Department associated with goal: [facility] Steps to achieve goal: [...] 19 04/05/2024 04/05/2024 04/05/2024 12:3 5 PM CASINO FLOOR SUPERVISOR COVID - 19 05/19/2024 05/19/2024 05/19/2024 6:18 PM CDT Assessment Noted Time PHQ-9 Depression Total Score: 1 01/12/20 19 5:00 PM CASINO FLOOR SUPERVISOR documented as of this encounter Care Teams Railway Head Tender Relationship Specialty Start Date End Date Damaso Vazquez MD PCP - General Family Medicine 05/28/20 08/31/23 Homer Alcala MD #2 [facility] [address] [place] [address] PCP - General Family Medicine 09/01/23 Yuliana Florez CUTTER WET MACHINE Advanced Practice Nurse 01/24/18 Michel Yanez APRN, QUALIFICATION ENGINEER [address] [place] [address] Nurse Practitioner Advanced Practice Nurse 12/28/21 Laureano Quigley MD #2 [facility] [address] [place] [address] Consulting Physician Urology 02/04/22 Elsa Kenny APRN, QUALIFICATION ENGINEER #2 [facility] [place] [facility] [address] [place] [address] Nurse Practitioner Cardiology 07/14/23 09/17/24 Saurav Goyal MD [address] [place] [address] Consulting Physician Pulmonary Disease 07/28/23 Yuni Meneses LSW [place] Comb Fixer Knockout Machine Operator 11/27/23 12/04/23 Ayala Weaver APRN, MANAGER PROGRAMMING [address] [place] [address] Nurse Practitioner Neurology 12/18/23 documented as of this encounter
--- OUTSIDE RECORDS SUMMARY | 2025-02-22 12:13 | XMS_ITS | Encounter Summary ---
Author Organization [facility] Address [address] [place] [address] Phone Care Team Providers Care Oracle Programmer Analyst Name Role Phone Yuliana Florez APN Unavailable Unavailab Damaso Chaudhari MD Primary Care Provider [phone] Michel Yanez APRN, CARD MAKER Unavailable [phone] Laureano Quigley MD Unavailable [phone] Elsa Kenny APRN, CARD MAKER Unavailable + [phone] Saurav Goyal MD Unavailable Homer Alcala MD Primary Care Provider [phone] Yuni Meneses EVENT LIGHTING SPECIALIST Unavailable Unavailab Ayala Orozco APRN, PERSONAL CARE ATTENDANT Unavailable + [phone] Reason for Visit * Reason Comments Medication Refill Encounter Details Date Type Department Care Team (Late st Contact Info) Description 02/09/2021 [facility] [address] [place] [address] Damaso Vazquez MD [address] [place] [address] Medication Refill Social History Tobacco Use Types [...] 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 Requested Prescriptions Pending Prescriptions Disp Refills Desvenlafaxine Succinate 100 MG TABLET SR 24 HR [Pharmacy Med Name: DESVENLAFAXINE SUC ER 100 M 100Tablet] 30 Tablet 2 Sig: TAKE ONE TABLET BY MOUTH EVERY DAY [facility] Off-Protocol Failed - 02/09/2021 8:03 AM Failed - Medication not assigned to a protocol, review manually. Passed - Valid encounter within last 12 months Past Office Visits Recent Outpatient Visits 4 months ago [facility] - Family Medicine - Damaso Romo MD 5 months ago Current severe episode of major depressive disorder without psychotic features, unspecified whether recurrent (HCC) [facility] Damaso Hernandez MD 7 months ago [facility]xiety [facility] Damaso Hernandez MD 8 months ago Benign essential HTN [facility] - Family Medicine - Damaso Romo MD 1 year ago Pain in both lower extremities [facility] - Family Medicine - [facility] Felecia Saenz, GABRIEL, STEPHANIE Upcoming Appointments Future Appointments In [address] MRI, [facility] OBSTETRIC ANAESTHETIST - Recent and Past Visits Recent Visits Date Type Provider Dept 09/16/20 Office Visit Damaso Vazquez MD [facility] 09/01/20 Office Visit Damaso Vazquez MD [facility] 06/30/20 Office Visit Damaso Vazquez MD [facility] 05/28/20 Office Visit Damaso Vazquez MD [facility] 02/10/20 Office Visit Felecia Saenz APRN, STEPHANIE [facility] Showing recent visits within past 460 days with a meds authorizing provider and meeting all other requirements Future Appointments No visits were found meeting these conditions. Showing future appointments within next 90 days with a meds authorizing provider and meeting all other requirements SNRI (6 Month Refill Only) Protocol Passed - 02/09/2021 8:03 AM Passed - Visit with relevant provider in past 6 months or upcoming 90 days Recent Visits Date Type Provider Dept 09/16/20 Office Visit Damaso Vazquez MD [facility] 09/01/20 Office Visit Damaso Vazquez MD [facility] Showing recent visits within past 182 [...] Reuptake Inhibitors for at least 6 months L SHARPENER OPERATOR documented in this encounter Plan of Treatment Upcoming Encounters Date Type Department Care Team (Latest Contact Info) Description 03/03/2025 10:00 AM DRILL SHARPENER OPERATOR Office Visit [facility] - Orthopedic Surgery - [place] [address] [place] [address] Homer Alcala MD #[address] [address] Ann Graham MD #2 [facility] [address] [place] [address] 03/04/2025 2:00 PM DRILL SHARPENER OPERATOR Office Visit [facility] - Cardiology - [place] [address] [place] [address] Homer Alcala MD #2 [facility] [address] [place] [address] Carolin Sykes, CUSTOMER PROFESSIONAL, CARD MAKER 2 [facility] [address] [place] [address] 03/19/2025 10:15 AM DRILL SHARPENER OPERATOR Physical Therapy [facility] at [facility] [address] [facility] [address] [place] [address] Sujata Winn, CUSTOMER PROFESSIONAL, CARD MAKER [address] [place] [address] Michelle Patel, PT [place] Discharge Disposition: Discharged to home or Selfcare 03/21/2025 1:30 PM DRILL SHARPENER OPERATOR Office Visit [facility] Neurology [facility] #[address] [place] [address] Ayala Weaver CUSTOMER PROFESSIONAL, PERSONAL CARE ATTENDANT #[address] [place] [address] 04/29/2025 9:00 AM DRILL SHARPENER OPERATOR Office Visit [facility] - Neurology [facility] #[address] [place] [address] Ayala Weaver CUSTOMER PROFESSIONAL, PERSONAL CARE ATTENDANT [address] [place] [address] 05/09/2025 11:00 AM DRILL SHARPENER OPERATOR Office Visit [facility] - Pulmonology & Sleep Medicine [facility] #[address] [place] [address] Saurav Goyal MD #[address] [place] [address] documented as of this encounter Goals Goal [...] 19 04/05/2024 04/05/2024 04/05/2024 12:3 5 PM DRILL SHARPENER OPERATOR COVID - 19 05/19/2024 05/19/2024 05/19/2024 6:18 PM CDT Assessment Noted Time PHQ-9 Depression Total Score: 1 01/12/20 19 5:00 PM DRILL SHARPENER OPERATOR documented as of this encounter Care Teams Oracle Programmer Analyst Relationship Specialty Start Date End Date Damaso Vazquez MD PCP - General Family Medicine 05/28/20 08/31/23 Homer Alcala MD #2 [facility] [address] [place] [address] PCP - General Family Medicine 09/01/23 Yuliana Florez APN Advanced Practice Nurse 01/24/18 Michel Yanez APRN, CARD MAKER #[address] [place] [address] Nurse Practitioner Advanced Practice Nurse 12/28/21 Laureano Quigley MD #2 [facility] [address] [place] [address] Consulting Physician Urology 02/04/22 Elsa Kenny APRN, CARD MAKER #2 [facility] [address] [place] [address] Nurse Practitioner Cardiology 07/14/23 09/17/24 Saurav Goyal MD #[address] [place] [address] Consulting Physician Pulmonary Disease 07/28/23 Yuni Meneses, EVENT LIGHTING SPECIALIST [place] [employer] Officer Patient Coordinator 11/27/23 12/04/23 Ayala Weaver, CUSTOMER PROFESSIONAL, PERSONAL CARE ATTENDANT #[address] [place] [address] Nurse Practitioner Neurology 12/18/23 documented as of this encounter
--- OUTSIDE RECORDS SUMMARY | 2025-02-22 12:13 | XMS_ITS | Encounter Summary ---
Author Organization [facility] Address [address] [place] [address] Phone Care Team Providers Care Building Maintenance Engineer Name Role Phone Yuliana Florez APN Unavailable Unavailab Damaso Chaudhari MD Primary Care Provider [phone] Michel Yanez APRN, ARTICULATION OFFICER Unavailable [phone] Laureano Quigley MD Unavailable [phone] Elsa Kenny APRN, ARTICULATION OFFICER Unavailable + [phone] Saurav Goyal MD Unavailable Homer Alcala MD Primary Care Provider [phone] Yuni Meneses FOOD CASHIER Unavailable Unavailab Ayala Orozco APRN, PELT SALTER Unavailable + [phone] Reason for Visit * Reason Comments Medication Refill Encounter Details Date Type Department Care Team (Late st Contact Info) Description 05/02/2022 Refill [facility] [place] [address] [place] [phone] Damaso Vazquez MD #[address] [facility] [address] 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 No / Unsure 04/03/2022 3:44 PM RADIO BOARD OPERATOR documented as of this encounter Miscellaneous Notes * Telephone Encounter - Veronica Keating RN - 05/03/2022 8:25 AM CST Duplicate request. O BOARD OPERATOR * Telephone Encounter - Winifred Contreras RN - 05/02/2022 9:01 AM RADIO BOARD OPERATOR Duplicate. O BOARD OPERATOR documented in this encounter Plan of Treatment Upcoming Encounters Date Type Department Care Team (Latest Contact Info) Description 03/03/2025 10:00 AM RADIO BOARD OPERATOR [facility] [place] #2 [place] [id number] Homer Alcala MD #[address] [address] Ann Graham MD #[address] [address] 03/04/2025 2:00 PM RADIO BOARD OPERATOR Office Visit [facility] Cardiology [facility] #2 [place] [phone] Homer Alcala MD #[address] [address] Carolin Sykes, CAP PARTS CUTTER, ARTICULATION OFFICER [address] [address] 03/19/2025 10:15 AM RADIO BOARD OPERATOR [facility] [address] [phone] Sujata Winn, CAP PARTS CUTTER, ARTICULATION OFFICER [address] [place] [address] Michelle Patel, PT [place] Discharge Disposition: Discharged to home or Selfcare 03/21/2025 1:30 PM RADIO BOARD OPERATOR [facility] [address] [place] [phone] Ayala Weaver, CAP PARTS CUTTER, PELT SALTER #2 [place] [address] 04/29/2025 9:00 AM RADIO BOARD OPERATOR Office [facility] - Neurology - [place] #[address] [place] [address] Ayala Weaver APRN, PELT SALTER #2 [place] [address] 05/09/2025 11:00 AM RADIO BOARD OPERATOR Office Visit [facility] - Pulmonology & Sleep Medicine - [place] #2 [facility] [place] [address] Saurav Goyal MD #2 [place] [address] documented as of this encounter Goals Goal [...] 19 04/05/2024 04/05/2024 04/05/2024 12:3 5 PM RADIO BOARD OPERATOR COVID - 05/19/2024 05/19/2024 05/19/2024 6:18 PM CDT Assessment Noted Time PHQ-9 Depression Total Score: 1 01/12/20 19 5:00 PM RADIO BOARD OPERATOR documented as of this encounter Care Teams Building Maintenance Engineer Relationship Specialty Start Date End Date Damaso Vazquez MD PCP - General Family Medicine 05/28/20 08/31/23 Homer Alcala MD #2 [facility] [address] [place] [address] PCP - General Family Medicine 09/01/23 Yuliana Florez SOURCING SPECIALIST Advanced Practice Nurse 01/24/18 Michel Yanez APRN, ARTICULATION OFFICER #[address] [place] [address] Nurse Practitioner Advanced Practice Nurse 12/28/21 Laureano Quigley MD #2 [facility] [address] [place] [address] Consulting Physician Urology 02/04/22 Elsa Kenny APRN, ARTICULATION OFFICER #2 [facility] [address] [facility] [address] [place] [address] Nurse Practitioner Cardiology 07/14/23 09/17/24 Saurav Goyal MD #2 [place] [address] Consulting Physician Pulmonary Disease 07/28/23 Yuni Meneses LSW [place] Line Erector Apprentice Sports Therapist 11/27/23 12/04/23 Ayala Weaver APRN, PELT SALTER #2 [place] [address] Nurse Practitioner Neurology 12/18/23 documented as of this encounter
--- OUTSIDE RECORDS SUMMARY | 2025-02-22 12:14 | XMS_ITS | Encounter Summary ---
Author Organization [facility] Address [address] [place] [address] Phone Care Team Providers Care Appraisal Technician Name Role Phone Yuliana Florez APN Unavailable Unavailab Michel Shepherd PRESSURE DISPATCHER, PROCESS IMPROVEMENT MANAGER Unavailable [phone] Laureano Quigley MD Unavailable [phone] Elsa Kenny PRESSURE DISPATCHER, PROCESS IMPROVEMENT MANAGER Unavailable + [phone] Saurav Goyal MD Unavailable Homer Alcala MD Primary Care Provider [phone] Ayala Weaver PRESSURE DISPATCHER, DIETITIAN TEACHING Unavailable + [phone] Encounter Details Date Type Department Care Team (Latest Contact Info) Description 07/08/2024 Transcribe Orders [facility] [address] [place] [address] Tan Hardy MD [address] [place] [address] Positive CHASE (antinuclear antibody) (Primary Dx) Social History Tobacco Use Types Packs/Day Years [...] declined 04/16/2024 How often do you attend restorationist or mandaen serv ices? Patient declined 04/16/2024 Do you belong to any clubs o r organizations such as restorationist groups, unions, fraternal or athletic groups, or [...] Total Score - Questions 1-9 13 02/03 [facility] of Occupat ional Health - Occupational Stress [...] any time in the past 12 m [facility], were you homeless or living in a assisted (including now)? 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 Not on file Not on file documented as of this encounter Plan of Treatment Upcoming Encounters Date Type Department Care Team (Latest Contact Info) Description 03/03/2025 10:00 AM HAMMER MILL OPERATOR Office Visit [facility] - Orthopedic Surgery - [place] #2 [place] [address] Homer Alcala MD #[address] [address] Ann Graham MD #[address] [address] 03/04/2025 2:00 PM HAMMER MILL OPERATOR [facility] [place] #2 [place] [phone] Homer Alcala MD #[address] [address] Carolin Sykes APRN, PROCESS IMPROVEMENT MANAGER 2 [facility] [address] [place] [address] 03/19/2025 10:15 AM HAMMER MILL OPERATOR Physical Therapy [facility] at [address] [phone] Sujata Winn APRN, PROCESS IMPROVEMENT MANAGER [address] [place] [address] Michelle Patel, PT [place] Discharge Disposition: Discharged to home or Selfcare 03/21/2025 1:30 PM HAMMER MILL OPERATOR [facility] [place] #[address] [place] [phone] Ayala Weaver, PRESSURE DISPATCHER, DIETITIAN TEACHING #2 [place] [address] 04/29/2025 9:00 AM HAMMER MILL OPERATOR [facility] [place] [address] [place] [address] Ayala Weaver APRN, DIETITIAN TEACHING #2 [place] [address] 05/09/2025 11:00 AM HAMMER MILL OPERATOR Office Visit [facility] - Pulmonology & [facility] Medicine [facility] #2 [place] [address] Saurav Goyal MD #2 [place] [address] Scheduled Orders Name Type Priority Associated Diagnoses Orde r Schedule MISCELLANEOUS TEST (NOT FOR [place]) Lab Routine Positive CHASE (antinuclear antibody) Expected: 07/08/2024, Expires: 07/08/2025 documented as of this encounter Goals Goal Patient Goal Type Associated Problems Recent Progress Patient-Stated? Author Depression Behavioral Health On track(2024 4:40 PM CDT) No Flora Yip LCSW Note: GOAL: Lisseth will manage depressive symptoms more effectively. Goal Reviewed with: patient today Readiness to change: Ready to change Department associated with goal: [facility] BE[facility]IOR[facility] SERVICES Steps [...] change Department associated with goal: [facility] Steps [...] change Department associated with goal: [facility] Steps [...] change Department associated with goal: [facility] Steps [...] 6 sessions documented as of this encounter Results * SJOGRENS ANTIBODY SSB (07/11/2024 9:43 AM CDT) SS-B <0.2 <1.0 AI 07/11/2024 3:5 3 PM CDT [facility] Blood Venipuncture / Unknown 07/11/2024 9:43 AM CDT 07/11/2024 10:16 AM CDT Narrative [facility] - 07/11/2024 3:53 PM CDT Antibody testing was performed by multiplex flow immunoassay on the BioPlex platform. us Not On File Provider IMMUNOLOGY ORDERABLES Final Result [facility] [address] [place] [address], [place] * J01 (T-RNA HISTIDYL SYNTHETASE) ANTIBODY (07/11/2024 9:43 AM CDT) OLGA-1 <0.2 <1.0 AI 07/11/2024 3:5 6 PM CDT [facility] Blood Venipuncture / Unknown 07/11/2024 9:43 AM CDT 07/11/2024 10:16 AM CDT Narrative [facility] - 07/11/2024 3:56 PM CDT Antibody testing was performed by multiplex flow immunoassay on the BioPlex platform. us Not On File Provider IMMUNOLOGY ORDERABLES Final Result Performing Organization Address City/[facility]/ZIP Co de Phone Number [facility] [address] [place] [address], [place] * SJOGRENS ANTIBODY SSA (07/11/2024 9:43 AM CDT) SS-A <0.2 <1.0 AI 07/11/2024 3:5 6 PM CDT [facility] Blood Venipuncture / Unknown 07/11/2024 9:43 AM CDT 07/11/2024 10:16 AM CDT Narrative [facility] - 07/11/2024 3:56 PM CDT Antibody testing was performed by multiplex flow immunoassay on the BioPlex platform. us Not On File Provider IMMUNOLOGY ORDERABLES Final Result [facility] [address] [place] [address], [place] * FORENSIC COMPUTER EXAMINER AB (07/11/2024 9:43 AM CDT) FORENSIC COMPUTER EXAMINER AB 0.3 <1.0 AI 07/11/2024 3:5 6 PM CDT [facility] Blood Venipuncture / Unknown 07/11/2024 9:43 AM CDT 07/11/2024 10:16 AM CDT Narrative [facility] - 07/11/2024 3:56 PM CDT Antibody testing was performed by multiplex flow immunoassay on the BioPlex platform. us Not On File Provider IMMUNOLOGY ORDERABLES Final Result Performing Organization Address [facility] Co de Phone Number [facility] [address] [place] [address], [place] * SKY ANTIBODY PANEL (07/11/2024 9:43 AM CDT) SM ANTIBODY <0.2 <1.0 AI 07/11/2024 3:53 PM CDT [facility] Blood Venipuncture / Unknown 07/11/2024 9:43 AM CDT 07/11/2024 10:16 AM CDT Narrative [facility] - 07/11/2024 3:53 PM CDT Antibody testing was performed by multiplex flow immunoassay on the BioPlex platform. us Not On File Provider IMMUNOLOGY ORDERABLES Final Result [facility] [address] [place] [address], [place] * CENTROMERE B AB (07/11/2024 9:43 AM CDT) CENTROMERE B AB <0.2 <1.0 AI 3:56 PM CDT [facility] Blood Venipuncture / Unknown 07/11/2024 9:43 AM CDT 07/11/2024 10:16 AM CDT Narrative [facility] - 07/11/2024 3:56 PM CDT Antibody testing was performed by multiplex flow immunoassay on the BioPlex platform. us Not On File Provider IMMUNOLOGY ORDERABLES Final Result Performing Organization Address City/[facility]/ZIP Co de Phone Number [facility] [address] [place] [address], [place] * CHROMATIN AB (07/11/2024 9:43 AM CDT) CHROMATIN AB <0.2 <1.0 AI 07/11/2024 3:56 PM CDT [facility] Blood Venipuncture / Unknown 07/11/2024 9:43 AM CDT 07/11/2024 10:16 AM CDT Narrative [facility] - 07/11/2024 3:56 PM CDT Antibody testing was performed by multiplex flow immunoassay on the BioPlex platform. us Not On File Provider IMMUNOLOGY ORDERABLES Final Result Performing Organization Address [facility] Co de Phone Number [facility] [address] [place] [address], [place] * SCLERODERMA (SCL 70) (07/11/2024 9:43 AM CDT) SCL-70 <0.2 <1.0 AI 07/11/2024 3:5 6 PM CDT [facility] Blood Venipuncture / Unknown 07/11/2024 9:43 AM CDT 07/11/2024 10:16 AM CDT Narrative [facility] - 07/11/2024 3:56 PM CDT Antibody testing was performed by multiplex flow immunoassay on the BioPlex platform. us Not On File Provider IMMUNOLOGY ORDERABLES Final Result [facility] [address] [place] [address], [place] * COMPLEMENT, TOTAL, S, HARVEY COM (07/11/2024 9:43 AM CDT) COMPLEMENT, TOTAL 53 30 - 75 U/mL 07/15/2024 2:26 PM CDT [facility] Comment: Test Performed by: [facility] [address] [id number] Remedial Reading Teacher: Cee Hernandez Ph.D.; CLIA# [id number] Blood Venipuncture / Unknown 07/11/2024 9:43 AM CDT 07/11/2024 10:16 AM CDT us Not On File Provider LAB SEND OUTS Final Resul t [facility] [place] * C4 COMPLEMENT (07/11/2024 9:43 AM CDT) C4 COMPLEMENT 29 15 - 57 mg/dL 07/11/2024 3:18 PM CDT [facility] Blood Venipuncture / Unknown 07/11/2024 9:43 AM CDT 07/11/2024 10:15 AM CDT us Not On File Provider CHEMISTRY ORDERABLES Final Result [facility] [address] [place] [address], [place] * C3 COMPLEMENT GLOBULIN B-1C (07/11/2024 9:43 AM CDT) C3 COMPLEMENT 127 83 - 193 mg/dL 07/11/2024 3:18 PM CDT [facility] Blood Venipuncture / Unknown 07/11/2024 9:43 AM CDT 07/11/2024 10:15 AM CDT us Not On File Provider CHEMISTRY ORDERABLES Final Result [facility] [address] [place] [address], [place] * ANTI DOUBLE STRAND DNA (DS DNA) ANTIBODY (07/11/2024 9:43 AM CDT) DNA AB, DOUBLE STRAND <1 <5 IU/mL 07/11/2024 3:56 PM CDT [facility] Blood Venipuncture / Unknown 07/11/2024 9:43 AM CDT 07/11/2024 10:16 AM CDT Narrative [facility] - 07/11/2024 3:56 PM CDT <= 4 Negative 5-9 Indeterminate >= 10 Positive Antibody testing was performed by multiplex flow immunoassay on the BioPlex platform. us Not On File Provider IMMUNOLOGY ORDERABLES Final Result [facility] [address] [place] [address], [place] * CHASE SCREEN MULTIPLEX W/REFLEX JUVE (07/11/2024 9:43 AM CDT) Pathologist [facility] CHASE SCR MULTIPLEX Negative Negative, See comment 07/11/2024 3:56 PM CDT [facility] Blood Venipuncture / Unknown 07/11/2024 9:43 AM CDT 07/11/2024 10:16 AM CDT Narrative [facility] - 07/11/2024 3:56 PM CDT Antibody testing was performed by multiplex flow immunoassay on the BioPlex platform. us Not On File Provider IMMUNOLOGY ORDERABLES Final Result [facility] [address] [place] [address], [place] * (ABNORMAL) LACTATE DEHYDROGENASE (LD) (07/11/2024 9:43 AM CDT) Pathologist [facility] LDH 242(H) 125 - 220 U/L 07/11/2024 10:47 AM CDT [facility] Blood Venipuncture / Unknown 07/11/2024 9:43 AM CDT 07/11/2024 10:15 AM CDT us Not On File Provider CHEMISTRY ORDERABLES Final Result Performing Organization Address City/[facility]/ZIP Co de Phone Number [facility] [address] [place] [address] * CREATINE KINASE (CK) TOTAL (07/11/2024 9:43 AM CDT) CK (CPK) 160 29 - 168 U/L 07/11/2024 10:47 AM CDT [facility] Blood Venipuncture / Unknown 07/11/2024 9:43 AM CDT 07/11/2024 10:15 AM CDT us Not On File Provider CHEMISTRY ORDERABLES Final Result Performing Organization Address [facility] Co de Phone Number [facility] [address] [place] [address] * C-REACTIVE PROTEIN (CRP) QUANT (07/11/2024 9:43 AM CDT) C-REACTIVE PROTEIN 0.31 <0.50 mg/dL 07/11/2024 10:47 AM CDT [facility] Blood Venipuncture / Unknown 07/11/2024 9:43 AM CDT 07/11/2024 10:15 AM CDT us Not On File Provider CHEMISTRY ORDERABLES Final Result Performing Organization Address City[facility]/ZIP Co de Phone Number [facility] [address] [place] [address] * (ABNORMAL) ERYTHROCYTE SEDIMENTATION RATE (ESR) (07/11/2024 9:43 AM CDT) ESR (SED RATE, ERYTHROCYTE SEDIMENTATION RATE) 30(H) <30 mm/h 07/11/2024 10:24 AM CDT [facility] Comment: Patients presenting with increased level of fibrinogen, gamma globulins, or abnormally shaped RBCs could affect the results for the erythrocyte sedimentation rate (ESR). Results should be clinically correlated. Blood Venipuncture / Unknown 07/11/2024 9:43 AM CDT 07/11/2024 10:14 AM CDT us Not On File Provider HEMATOLOGY ORDERABLES Final Result Performing Organization Address City/State/[facility] Co de Phone Number [facility] [address] [place] [address] documented in this encounter Visit Diagnoses Diagnosis Positive CHASE (antinuclear antibody)- Primary Other and unspecified nonspecific immunological findings documented in this encounter Additional Health Concerns Assessment Noted Time PHQ-9 Depression Total Score: 13 024 2:00 PM HAMMER MILL OPERATOR documented as of this encounter Care Teams Appraisal Technician Relationship Specialty Start Date End Date Homer Alcala MD #2 [facility] [address] [place] [address] PCP - General Family Medicine 09/01/23 Yuliana Florez APN Advanced Practice Nurse 01/24/18 Michel Yanez APRN, PROCESS IMPROVEMENT MANAGER #2 [place] [address] Nurse Practitioner Advanced Practice Nurse 12/28/21 Laureano Quigley MD #2 [facility] [address] [place] [address] Consulting Physician Urology 02/04/22 Elsa Kenny APRN, PROCESS IMPROVEMENT MANAGER #2 [facility] [address] [place] [address] Nurse Practitioner Cardiology 07/14/23 09/17/24 Saurav Goyal MD #2 [place] [address] Consulting Physician Pulmonary Disease 07/28/23 Ayala Weaver, PRESSURE DISPATCHER, DIETITIAN TEACHING #2 [place] [address] Nurse Practitioner Neurology 12/18/23 documented as of this encounter
--- OUTSIDE RECORDS SUMMARY | 2025-02-22 12:14 | XMS_ITS | Encounter Summary ---
Author Organization [facility] Address [address] [place] [address] Phone Care Team Providers Care Manufacturing Project Manager Name Role Phone Yuliana Florez APN Unavailable Unavailab Damaso Chaudhari MD Primary Care Provider [phone] Michel Yanez APRN, FLATWARE MAKER Unavailable [phone] Laureano Quigley MD Unavailable [phone] Elsa Kenny APRN, FLATWARE MAKER Unavailable + [phone] Saurav Goyal MD Unavailable Homer Alcala MD Primary Care Provider [phone] Yuni Meneses VENEER DRIER Unavailable Unavailab Ayala Orozco APRN, SPECIAL PROCEDURES NURSE Unavailable + [phone] Reason for Visit * Reason Comments Medication Refill Encounter Details Date Type Department Care Team (Late st Contact Info) Description 01/10/2022 Refill [facility] - [facility] Medicine - [place] #2 [place] [phone] Damaso Vazquez MD #1 [place] [address] Medication Refill Social History Tobacco Use Types [...] 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 No / Unsure 12/28/2021 2:40 PM CDT documented as of this encounter Miscellaneous Notes * Telephone Encounter - Opal Mccarthy RN - 01/10/2022 9:50 AM CST Was given 30 day supply on 12/24/2021. Too soon. CTOR EHS documented in this encounter Plan of Treatment Upcoming Encounters Date Type Department Care Team (Latest Contact Info) Description 03/03/2025 10:00 AM DIRECTOR EHS Office Visit [facility] Medical [facility] - Orthopedic Surgery [facility] #2 [place] [address] Homer Alcala MD #[address] [address] Ann Graham MD #[address] [facility] [address] [place] [address] 03/04/2025 2:00 PM DIRECTOR EHS Office Visit [facility] - Cardiology [facility] #2 [place] [address] Homer Alcala MD #2 [facility] [address] [place] [address] Carolin Sykes, MVA STILL OPERATOR, FLATWARE MAKER 2 [facility] 305 [place] [address] 03/19/2025 10:15 AM DIRECTOR EHS Physical Therapy [facility] at [facility] 200 [facility], [facility] [address]1 [place] [address] Sujata Winn, MVA STILL OPERATOR, FLATWARE MAKER [address] [place] [address] Michelle Patel, PT [place] Discharge Disposition: Discharged to home or Selfcare 03/21/2025 1:30 PM DIRECTOR EHS [facility] #2 [place] [address] Ayala Weaver APRN, SPECIAL PROCEDURES NURSE #2 [place] [address] 04/29/2025 9:00 AM DIRECTOR EHS [facility] #2 [place] [address] Ayala Weaver APRN, SPECIAL PROCEDURES NURSE #2 [place] [address] 05/09/2025 11:00 AM DIRECTOR EHS Office Visit [facility] - Pulmonology & Sleep Medicine - [place] #2 [place] [address] Saurav Goyal MD #2 [place] [address] documented as of this encounter Goals Goal [...] as of this encounter Visit Diagnoses Diagnosis Attention deficit hyperactivity disorder (ADHD), combined type documented in this encounter Additional Health Concerns Infection Onset Date Last Indicated Resolved Time COVID - 19 10/08/2023 10/08/2023 10/08/2023 11:4 0 AM CDT COVID - 19 04/05/2024 04/05/2024 04/05/2024 12:3 5 PM DIRECTOR EHS COVID - 19 05/19/2024 05/19/2024 05/19/2024 6:18 PM CDT Assessment Noted Time PHQ-9 Depression Total Score: 1 01/12/20 19 5:00 PM DIRECTOR EHS documented as of this encounter Care Teams Manufacturing Project Manager Relationship Specialty Start Date End Date Damaso Vazquez MD PCP - General Family Medicine 05/28/20 08/31/23 Homer Alcala MD #2 [facility] [address] [place] [address] PCP - General Family Medicine 09/01/23 Yuliana Florez PROCESS ENGINEERING MANAGER Advanced Practice Nurse 01/24/18 Michel Yanez MVA STILL OPERATOR, FLATWARE MAKER #2 [place] [address] Nurse Practitioner Advanced Practice Nurse 12/28/21 Laureano Quigley MD #2 [facility] [address] [place] [address] Consulting Physician Urology 02/04/22 Elsa Kenny MVA STILL OPERATOR, FLATWARE MAKER #2 [facility] [address] [place] [address] Nurse Practitioner Cardiology 07/14/23 09/17/24 Saurav Goyal MD #2 [place] [address] Consulting Physician Pulmonary Disease 07/28/23 Yuni Meneses, VENEER DRIER [place] Anatomy Professor Top Dyeing Machine Tender 11/27/23 12/04/23 Ayala Weaver, MVA STILL OPERATOR, SPECIAL PROCEDURES NURSE #2 [place] [address] Nurse Practitioner Neurology 12/18/23 documented as of this encounter
--- OUTSIDE RECORDS SUMMARY | 2025-02-22 12:14 | XMS_ITS | Encounter Summary ---
Author Organization [facility] Address [address] [place] [address] Phone Care Team Providers Care Record Maker Name Role Phone Yuliana Florez APN Unavailable Unavailab Damaso Chaudhari MD Primary Care Provider [phone] Michel Yanez APRN, TELECOMMUNICATIONS SPECIALIST Unavailable [phone] Laureano Quigley MD Unavailable [phone] Elsa Kenny APRN, TELECOMMUNICATIONS SPECIALIST Unavailable + [phone] Saurav Goyal MD Unavailable Homer Alcala MD Primary Care Provider [phone] Yuni Meneses SHAPING MACHINE OPERATOR Unavailable Unavailab Ayala Orozco APRN, BRAND MGR Unavailable + [phone] Reason for Visit * Reason Comments Medication Refill Encounter Details Date Type Department Care Team (Late st Contact Info) Description 09/27/2021 Refill [facility] - Family Medicine - [place] [address] [place] [address] Damaso Vazquez MD #1 [place] [address] Medication Refill Social History Tobacco Use Types [...] 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 Requested Prescriptions Pending Prescriptions Disp Refills Desvenlafaxine Succinate 100 MG TABLET SR 24 HR [Pharmacy Med Name: DESVENLAFAXINE ER 100MG ER TABLET ER 24HR] 30 Tablet 2 Sig: TAKE ONE TABLET BY MOUTH EVERY DAY SNRI (6 Month Refill Only) Protocol Passed - 09/27/2021 9:21 AM Passed - Visit with relevant provider in past 6 months or upcoming 90 days Recent Visits Date Type Provider Dept 06/11/21 Office Visit Damaso Vazquez MD [facility] 05/04/21 Office Visit Damaso Vazquez MD [facility] Showing recent visits within past 182 days and meeting all other requirements Future Appointments Date Type Provider Dept 09/30/21 Appointment Damaso Vazquez MD [facility] Showing [...] (Latest Contact Info) Description 03/03/2025 10:00 AM BAR STAFF Office Visit [facility] - Orthopedic Surgery - [place] #2 [place] [address] Homer Alcala MD #2 [facility] [address] [place] [address] Ann Graham MD #2 [facility] [address] [place] [address] 03/04/2025 2:00 PM BAR STAFF Office Visit [facility] - Cardiology [facility] #2 [place] [address] Homer Alcala MD #2 [facility] [address] [place] [address] Carolin Sykes APRN, TELECOMMUNICATIONS SPECIALIST 2 [facility] [address] [place] [address] 03/19/2025 10:15 AM BAR STAFF Physical Therapy [facility] Re[facility] at [facility] 200 [facility], [facility] H1 [place] [address] Sujata Winn, FLOORING SALESPERSON, TELECOMMUNICATIONS SPECIALIST [address] [place] [address] Michelle Patel, PT [place] Discharge Disposition: Discharged to home or Selfcare 03/21/2025 1:30 PM BAR STAFF Office Visit [facility] Neurology - [place] #2 [facility] [place] [address] Ayala Weaver, FLOORING SALESPERSON, BRAND MGR #2 [place] [address] 04/29/2025 9:00 AM BAR STAFF Office Visit [facility] Neurology - [place] #2 [facility] [address] Ayala Weaver, FLOORING SALESPERSON, BRAND MGR #2 [place] [address] 05/09/2025 11:00 AM BAR STAFF Office Visit [facility] Pulmonology & Sleep Medicine - [place] #2 [place] [address] Saurav Goyal MD #2 [place] [address] documented as of this encounter Goals Goal Patient Goal Type Associated Problems Recent Progress Patient-Stated? Author Depression Behavioral Health On track(2024 4:40 PM CDT) No Flora Yip LCSW Note: GOAL: Lisseth will manage depressive symptoms more effectively. Goal Reviewed with: patient today Readiness to change: Ready to change Department associated with goal: [facility] Steps to achieve [...] change Department associated with goal: [facility] Steps to achieve [...] 19 04/05/2024 04/05/2024 04/05/2024 12:3 5 PM BAR STAFF COVID - 05/19/2024 05/19/2024 05/19/2024 6:18 PM CDT Assessment Noted Time PHQ-9 Depression Total Score: 1 01/12/20 19 5:00 PM BAR STAFF documented as of this encounter Care Teams Record Maker Relationship Specialty Start Date End Date Damaso Vazquez MD PCP - General Family Medicine 05/28/20 08/31/23 Homer Alcala MD #[address] [address] PCP - General Family Medicine 09/01/23 Yuliana Florez APN Advanced Practice Nurse 01/24/18 Michel Yanez APRN, TELECOMMUNICATIONS SPECIALIST #2 [place] [address] Nurse Practitioner Advanced Practice Nurse 12/28/21 Laureano Quigley MD #2 [place] [facility], [facility] [address] [place] [address] Consulting Physician Urology 02/04/22 Elsa Kenny APRN, TELECOMMUNICATIONS SPECIALIST #2 [facility], [facility] [address] [place] [address] Nurse Practitioner Cardiology 07/14/23 09/17/24 Saurav Goyal MD #2 [place] [address] Consulting Physician Pulmonary Disease 07/28/23 Yuni Meneses, [facility] Editor News Adoption Services Manager 11/27/23 12/04/23 Ayala Weaver APRN, BRAND MGR #2 [place] [address] Nurse Practitioner Neurology 12/18/23 documented as of this encounter
--- OUTSIDE RECORDS SUMMARY | 2025-02-22 12:14 | XMS_ITS | Encounter Summary ---
Author Organization [facility] Address [address] [place] [address] Phone Care Team Providers Care Security Strategist Name Role Phone Yuliana Florez APN Unavailable Unavailab Damaso Chaudhari MD Primary Care Provider [phone] Michel Yanez APRN, GAS APPLIANCE REPAIRER Unavailable [phone] Laureano Quigley MD Unavailable [phone] Elsa Kenny APRN, GAS APPLIANCE REPAIRER Unavailable + [phone] Saurav Goyal MD Unavailable Homer Alcala MD Primary Care Provider [phone] Yuni Meneses BRINE ROOM LABORER Unavailable Unavailab Ayala Orozco APRN, INSPECTOR RETURNED MATERIALS Unavailable + [phone] Reason for Visit * Reason Comments Medication Refill Encounter Details Date Type Department Care Team (Late st Contact Info) Description 02/09/2022 Refill [facility] - Family Medicine - [place] #2 [place] [address] Damaso Vazquez MD #1 [place] [address] Medication Refill Social History Tobacco Use Types [...] 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 No / Unsure 02/04/2022 11:14 AM PERMASTONE APPLICATOR documented as of this encounter Miscellaneous Notes * Telephone Encounter - Dorene Woo RN - 02/09/2022 9:20 AM CST PDMP 01/13/22 Medication failed the protocol, provider to review and approve the medication order if appropriate. Requested Prescriptions Pending Prescriptions Disp Refills amphetamine-dextroamphetamine (ADDERALL XR) 20 MG CAPSULE SR 24 HR [Pharmacy Med Name: AMPHETAMINE/DEXTROAMPHETAMINE 20MG ER CAPSULE ER 24HR] 60 Capsule 0 Sig: TAKE TWO (2) CAPSULES BY MOUTH EVERY MORNING. Not Delegated - Off Protocol Failed - 02/09/2022 9:01 AM Failed - This refill cannot be delegated Passed - Visit with relevant provider in past 12 months or upcoming 90 days Recent Visits Date Type Provider Dept 06/11/21 Office Visit Damaso Vazquez MD [facility] 05/04/21 Office Visit Damaso Vazquez MD [facility] Showing recent visits within past 365 days and meeting all other requirements Future Appointments No visits were found meeting these conditions. Showing future appointments within next 90 days and meeting all other requirements ASTONE APPLICATOR documented in this encounter Plan of Treatment Upcoming Encounters Date Type Department Care Team (Latest Contact Info) Description 03/03/2025 10:00 AM PERMASTONE APPLICATOR Office Visit [facility] - Orthopedic Surgery - [place] #2 [place] [address] Homer Alcala MD #2 [facility] [address] [place] [address] Ann Graham MD #[address] [address] 03/04/2025 2:00 PM PERMASTONE APPLICATOR Office Visit [facility] Cardiology - [place] #2 [place] [address] Homer Alcala MD #[address] [address] Carolin Sykes APRN, GAS APPLIANCE REPAIRER 2 [facility] [address] [place] [address] 03/19/2025 10:15 AM PERMASTONE APPLICATOR Physical [facility] 200 [facility], [facility] H1 [place] [address] Sujata Winn, FISHER QUAHOG, GAS APPLIANCE REPAIRER [address] [place] [address] Michelle Patel, PT [place] Discharge Disposition: Discharged to home or Selfcare 03/21/2025 1:30 PM PERMASTONE APPLICATOR Office Visit [facility] Neurology - [place] #2 [facility] [place] [address] Ayala Weaver, FISHER QUAHOG, INSPECTOR RETURNED MATERIALS #2 [place] [address] 04/29/2025 9:00 AM PERMASTONE APPLICATOR Office Visit [facility] Neurology - [place] #2 [facility] [place] [address] Ayala Weaver, FISHER QUAHOG, INSPECTOR RETURNED MATERIALS #2 [place] [address] 05/09/2025 11:00 AM PERMASTONE APPLICATOR Office Visit [facility] Pulmonology & Sleep Medicine - [place] #2 [place] [address] Saurav Goyal MD #2 [place] [address] documented as of this encounter Goals Goal Patient Goal Type Associated Problems Recent Progress Patient-Stated? Author Depression Behavioral Health On track(2024 4:40 PM CDT) No Flora Yip LCSW Note: GOAL: Lisseth will manage depressive symptoms more effectively. Goal Reviewed with: patient today Readiness to change: Ready to change Department associated with goal: [facility] Steps [...] 4:40 PM CDT) No [place], Flora A, ANODE ADJUSTER Note: GOAL: Lisseth will process feelings of grief and loss related to her son. Goal Reviewed with: patient today Readiness to change: Ready to change Department associated with goal: [facility] Steps [...] 19 04/05/2024 04/05/2024 04/05/2024 12:3 5 PM PERMASTONE APPLICATOR COVID - 19 05/19/2024 05/19/2024 05/19/2024 6:18 PM CDT Assessment Noted Time PHQ-9 Depression Total Score: 1 01/12/20 19 5:00 PM PERMASTONE APPLICATOR documented as of this encounter Care Teams Security Strategist Relationship Specialty Start Date End Date Damaso Vazquez MD PCP - General Family Medicine 05/28/20 08/31/23 Homer Alcala MD #[address] [address] PCP - General Family Medicine 09/01/23 Yuliana Florez APN Advanced Practice Nurse 01/24/18 Michel Yanez APRN, GAS APPLIANCE REPAIRER #2 [place] [address] Nurse Practitioner Advanced Practice Nurse 12/28/21 Laureano Quigley MD #2 [facility], [facility] [address] [place] [address] Consulting Physician Urology 02/04/22 Elsa Kenny APRN, GAS APPLIANCE REPAIRER #2 [facility], [facility] [address] [place] [address] Nurse Practitioner Cardiology 07/14/23 09/17/24 Saurav Goyal MD #2 [place] [address] Consulting Physician Pulmonary Disease 07/28/23 Yuni Meneses, [facility] Qa Developer Furniture Removalist 11/27/23 12/04/23 Ayala Weaver APRN, INSPECTOR RETURNED MATERIALS #2 [place] [address] Nurse Practitioner Neurology 12/18/23 documented as of this encounter
--- OUTSIDE RECORDS SUMMARY | 2025-02-22 12:14 | XMS_ITS | Encounter Summary ---
Author Organization [facility] Address [address] [place] [address] Phone Care Team Providers Care Director Of Graduate Medical Education Name Role Phone Yuliana Florez APN Unavailable Unavailab Michel Shepherd SHAFT TENDER, CANE PACKER Unavailable [phone] Laureano Quigley MD Unavailable [phone] Elsa Kenny SHAFT TENDER, CANE PACKER Unavailable + [phone] Saurav Goyal MD Unavailable Homer Alcala MD Primary Care Provider [phone] Ayala Weaver SHAFT TENDER, REHABILITATION SERVICES COUNSELOR Unavailable + [phone] Encounter Details Date Type Department Care Team (Late st Contact Info) Description 08/12/2024 Behavioral Health Patient Survey [facility] [address] [place] [phone] GrantFlora howell, POLICE CRIME SCENE TECHNICIAN #1 [facility] [place] [address] Social History Tobacco Use Types Packs/Day Years Used Date Smoking Tobacco: Former Cigarettes 0 Q uit: 03/13/1988 Smokeless Tobacco: Never Alcohol Use Standard Drinks/Week Comments Not Currently 0 (1 standard drink = 0.6 oz pur e alcohol) seldom [facility] Utilities Answer Date Recorded In the past 12 months has e electric, gas, oil, or water [employer] threatened to shut off services in your home? Patient declined 04/16/2024 Social Connection and Isolation Panel Answer Date Recorded In a typical week, how many times do you talk on the phone with family, friends, or neighbors? Patient declined 04/16/2024 How often do you get togethe r with friends or relatives? Patient declined 04/16/2024 How often do you attend jainism or pentecostalism serv ices? Patient declined 04/16/2024 Do you belong to any clubs o r organizations such as jainism groups, unions, fraternal or athletic groups, or [...] Total Score - Questions 1-9 0 /2 [facility] [place] of Occupat ional Health - Occupational Stress [...] any time in the past 12 m [facility], were you homeless or living in a jail (including now)? 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 Not on file documented as of this encounter Plan of Treatment Upcoming Encounters Date Type Department Care Team (Latest Contact Info) Description 03/03/2025 10:00 AM REAL ESTATE SPECIALIST Office [facility] - [facility]opedic Surgery - [place] #2 [place] [address] Homer Alcala MD #2 [facility] [address] [place] [address] Ann Graham MD #2 [facility] [address] [place] [address] 03/04/2025 2:00 PM REAL ESTATE SPECIALIST [facility] [place] #2 [place] [address] Homer Alcala MD #2 [facility] [address] [place] [address] Carolin Sykes APRN, CANE PACKER 2 [facility] [address] [place] [address] 03/19/2025 10:15 AM REAL ESTATE SPECIALIST Physical [facility] 200 [facility] H1 [place] [address] Sujata Winn, GABRIEL, CANE PACKER [address] [place] [address] Michelle Patel, PT [place] Discharge Disposition: Discharged to home or Selfcare 03/21/2025 1:30 PM REAL ESTATE SPECIALIST [facility] [place] #2 [place] [address] Ayala Weaver, SHAFT TENDER, REHABILITATION SERVICES COUNSELOR #2 [place] [address] 04/29/2025 9:00 AM REAL ESTATE SPECIALIST [facility] [place] #2 [place] [address] Ayala Weaver, SHAFT TENDER, REHABILITATION SERVICES COUNSELOR #2 [place] [address] 05/09/2025 11:00 AM REAL ESTATE SPECIALIST Office Visit [facility] - Pulmonology & Sleep Medicine - [place] #2 [place] [address] Saurav Goyal MD #2 [facility] [address] documented as of this encounter Goals Goal [...] track(2024 4:40 PM CDT) No Flora Yip, POLICE CRIME SCENE TECHNICIAN Note: GOAL: Lisseth will process feelings of [...] documented as of this encounter Care Teams Director Of Graduate Medical Education Relationship Specialty Start Date End Date Homer Alcala MD #2 [place] [id number] PCP - General Family Medicine 09/01/23 Yuliana Florez, PALLETIZER Advanced Practice Nurse 01/24/18 Michel Yanez, GABRIEL, CANE PACKER #2 [place] [address] Nurse Practitioner Advanced Practice Nurse 12/28/21 Laureano Quigley MD #2 [facility] [address] [place] [address] Consulting Physician Urology 02/04/22 Elsa Kenny, SHAFT TENDER, CANE PACKER #2 [facility] [address] [place] [address] Nurse Practitioner Cardiology 07/14/23 09/17/24 Saurav Goyal MD #2 [place] [address] Consulting Physician Pulmonary Disease 07/28/23 Ayala Weaver, SHAFT TENDER, REHABILITATION SERVICES COUNSELOR #2 [place] [address] Nurse Practitioner Neurology 12/18/23 documented as of this encounter
--- OUTSIDE RECORDS SUMMARY | 2025-02-22 12:14 | XMS_ITS | Encounter Summary ---
Author Organization [facility] Address [address] [place] [address] Phone Care Team Providers Care Plant Etiologist Name Role Phone Yuliana Florez APN Unavailable Unavailab Michel Shepherd FOOD SERVICE WORKER HOSPITAL, CULTURAL CENTRE MANAGER Unavailable [phone] Laureano Quigley MD Unavailable [phone] Elsa Kenny FOOD SERVICE WORKER HOSPITAL, CULTURAL CENTRE MANAGER Unavailable + [phone] Saurav Goyal MD Unavailable Homer Alcala MD Primary Care Provider [phone] Ayala Weaver FOOD SERVICE WORKER HOSPITAL, DELIVERY DRIVER/CUSTOMER SERVICE Unavailable + [phone] Reason for Visit * Reason Comments Medication Refill Encounter Details Date Type Department Care Team (Late st Contact Info) Description 06/24/2024 Refill [facility] #[address] [place] [address] Homer Alcala MD #[address] [address] Medication Refill Social History Tobacco Use Types Packs/Day Years Used Date Smoking Tobacco: Former Cigarettes 0 Q uit: 03/13/1988 Smokeless Tobacco: Never Alcohol Use Standard Drinks/Week Comments Not Currently 0 (1 standard drink = 0.6 oz pur e alcohol) seldom [facility] Utilities Answer Date Recorded In the [...] declined 04/16/2024 How often do you attend spiritism or roman catholic serv ices? Patient declined 04/16/2024 Do you belong to any clubs o r organizations such as spiritism groups, unions, fraternal or athletic groups, or [...] Total Score - Questions 1-9 13 02/03 [facility] - Occupational [...] any time in the past 12 m [facility], were you homeless or living in a care home (including now)? No 04/16/2024 Education Answer [...] Telephone Encounter - Darline Seth RN - 06/24/2024 3:09 PM CDT Name from pharmacy: MOUNJARO 2.5/0.5 SOLN AUTO-INJ Will file in chart as: Mounjaro 2.5 MG/0.5ML Solution Auto-injector The original prescription was discontinued on 06/19/2024 by Homer Alcala MD Dose adjusted documented in this encounter Plan of Treatment Upcoming Encounters Date Type Department Care Team (Latest Contact Info) Description 03/03/2025 10:00 AM IN FILE OPERATOR Office Visit [facility] - Orthopedic Surgery - [place] #2 [place] [address] Homer Alcala MD #[address] [address] Ann Graham MD #[address] [address] 03/04/2025 2:00 PM IN FILE OPERATOR Office Visit [facility] Cardiology - [place] #2 [place] [address] Homer Alcala MD #[address] [address] Carolin Sykes APRN, CULTURAL CENTRE MANAGER [address] [address] 03/19/2025 10:15 AM IN FILE OPERATOR Physical Therapy [facility] [address] [address] Sujata Winn APRN, CULTURAL CENTRE MANAGER [address] [place] [address] Michelle Patel, PT [place] Discharge Disposition: Discharged to home or Selfcare 03/21/2025 1:30 PM IN FILE OPERATOR Office Visit [facility] Neurology [facility] #2 [place] [address] Ayala Weaver, FOOD SERVICE WORKER HOSPITAL, DELIVERY DRIVER/CUSTOMER SERVICE #2 [facility] [place] [address] 04/29/2025 9:00 AM IN FILE OPERATOR Office Visit [facility] Neurology [facility] #2 [place] [address] Ayala Weaver, FOOD SERVICE WORKER HOSPITAL, DELIVERY DRIVER/CUSTOMER SERVICE #2 [facility] [place] [address] 05/09/2025 11:00 AM IN FILE OPERATOR Office Visit [facility] Pulmonology & Sleep Medicine [facility] #2 [place] [address] Saurav Goyal MD #2 [place] [address] documented as of this encounter Goals Goal Patient Goal Type Associated Problems Recent Progress Patient-Stated? Author Depression Behavioral Health On track(2024 4:40 PM CDT) Flora Miller, FIRER LOW PRESSURE Note: GOAL: Lisseth will manage depressive symptoms more effectively. Goal Reviewed with: patient today Readiness to change: Ready to change Department associated with goal: [facility] Steps to [...] Ready to change Department associated with goal: [facility] Steps to [...] Ready to change Department associated with goal: [facility] Steps to [...] Ready to change Department associated with goal: [facility] Steps to [...] Noted Time PHQ-9 Depression Total Score: 13 02/19/ 024 2:00 PM IN FILE OPERATOR documented as of this encounter Care Teams Plant Etiologist Relationship Specialty Start Date End Date Homer Alcala MD #2 [facility] [address] [place] [address] PCP - General Family Medicine 09/01/23 Yuliana Florez DIRECTOR BUILDING Advanced Practice Nurse 01/24/18 Michel Yanez, FOOD SERVICE WORKER HOSPITAL, CULTURAL CENTRE MANAGER #2 [place] [address] Nurse Practitioner Advanced Practice Nurse 12/28/21 Laureano Quigley MD #2 [facility] [address] [place] [address] Consulting Physician Urology 02/04/22 Elsa Kenny, FOOD SERVICE WORKER HOSPITAL, CULTURAL CENTRE MANAGER #2 [facility] [address] [place] [address] Nurse Practitioner Cardiology 07/14/23 09/17/24 Saurav Goyal MD #2 [place] [address] Consulting Physician Pulmonary Disease 07/28/23 Ayala Weaver, FOOD SERVICE WORKER HOSPITAL, DELIVERY DRIVER/CUSTOMER SERVICE #2 [place] [address] Nurse Practitioner Neurology 12/18/23 documented as of this encounter
--- OUTSIDE RECORDS SUMMARY | 2025-02-22 12:14 | XMS_ITS | Encounter Summary ---
Author Organization [facility] Address [address] [place] [address] Phone Care Team Providers Care Rn Acls Name Role Phone Yuliana Florez APN Unavailable Unavailab Damaso Chaudhari MD Primary Care Provider [phone] Michel Yanez APRN, MEDIUM CYCLE SALESPERSON Unavailable [phone] Laureano Quigley MD Unavailable [phone] Elsa Kenny APRN, MEDIUM CYCLE SALESPERSON Unavailable + [phone] Saurav Goyal MD Unavailable Homer Alcala MD Primary Care Provider [phone] Yuni Meneses PROGRAMMING INTERN Unavailable Unavailab Ayala Orozco APRN, SENIOR MATERIALS ANALYST Unavailable + [phone] Reason for Visit * Reason Comments Medication Refill Encounter Details Date Type Department Care Team (Late st Contact Info) Description 07/30/2021 Refill [facility] - Family Medicine - [place] #2 [place] [phone] Damaso Vazquez MD #1 [place] [address] Medication Refill Social History Tobacco Use Types [...] 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 No / Unsure 07/07/2021 2:27 PM CDT documented as of this encounter Miscellaneous Notes * Telephone Encounter - Lisseth Haji RN - 07/30/2021 11:30 AM CDT Medication failed the protocol, provider to review and approve the medication order if appropriate. Requested Prescriptions Pending Prescriptions Disp Refills Desvenlafaxine Succinate 100 MG TABLET SR 24 HR [Pharmacy Med Name: DESVENLAFAXINE ER 100MG ER TABLET ER 24HR] 30 Tablet 2 Sig: TAKE ONE TABLET BY MOUTH EVERY DAY SNRI (6 Month Refill Only) Protocol Passed - 07/30/2021 9:17 AM Passed - Visit with relevant provider in past 6 months or upcoming 90 days Recent Visits Date Type Provider Dept 06/11/21 Office Visit Damaso Vazquez MD [facility] 05/04/21 Office Visit Damaso Vazquez MD [facility] Showing recent visits within past 182 days and meeting all other requirements Future Appointments Date Type Provider Dept 10/15/21 Appointment Damaso V[facility] MD [facility] Showing future appointments within next 90 [...] (Latest Contact Info) Description 03/03/2025 10:00 AM CUSTOMER RELATIONS CONSULTANT Office Visit [facility] - Orthopedic Surgery - [place] #2 [place] [address] Homer Alcala MD #[address] [address] Ann Graham MD #[address] [address] 03/04/2025 2:00 PM CUSTOMER RELATIONS CONSULTANT Office Visit [facility] Cardiology - [place] #2 [place] [address] Homer Alcala MD #[address] [address] Carolin Sykes, RECONCILIATION CLERK, MEDIUM CYCLE SALESPERSON [address] [address] 03/19/2025 10:15 AM CUSTOMER RELATIONS CONSULTANT Physical Therapy [facility] at [facility] 200 [facility] H1 [place] [address] Sujata Winn, RECONCILIATION CLERK, MEDIUM CYCLE SALESPERSON [address] [place] [address] Michelle Patel, PT [place] Discharge Disposition: Discharged to home or Selfcare 03/21/2025 1:30 PM CUSTOMER RELATIONS CONSULTANT Office Visit [facility] Neurology - [place] #2 [place] [address] Ayala Weaver, RECONCILIATION CLERK, SENIOR MATERIALS ANALYST #2 [facility] [address] 04/29/2025 9:00 AM CUSTOMER RELATIONS CONSULTANT Office Visit [facility] Neurology [facility] #2 [place] [address] Ayala Weaver, RECONCILIATION CLERK, SENIOR MATERIALS ANALYST #2 [facility] [place] [address] 05/09/2025 11:00 AM CUSTOMER RELATIONS CONSULTANT Office Visit [facility] Pulmonology & Sleep Medicine - [place] #2 [place] [address] Saurav Goyal MD #2 [place] [address] documented as of this encounter Goals Goal Patient Goal Type Associated Problems Recent Progress Patient-Stated? Author Depression Behavioral Health On track(2024 4:40 PM CDT) Flora Miller, SERVICE WORKER Note: GOAL: Lisseth will manage depressive symptoms more effectively. Goal Reviewed with: patient today Readiness to change: Ready to change Department associated with goal: [facility] Steps to [...] change Department associated with goal: [facility] Steps to [...] 19 04/05/2024 04/05/2024 04/05/2024 12:3 5 PM CUSTOMER RELATIONS CONSULTANT COVID - 19 05/19/2024 05/19/2024 05/19/2024 6:18 PM CDT Assessment Noted Time PHQ-9 Depression Total Score: 1 01/12/20 19 5:00 PM CUSTOMER RELATIONS CONSULTANT documented as of this encounter Care Teams Rn Acls Relationship Specialty Start Date End Date Damaso Vazquez MD PCP - General Family Medicine 05/28/20 08/31/23 Homer Alcala MD #[address] [place] [address] PCP - General Family Medicine 09/01/23 Yuliana Florez SEED POTATO ARRANGER Advanced Practice Nurse 01/24/18 Michel Yanez, RECONCILIATION CLERK, MEDIUM CYCLE SALESPERSON #2 [place] [address] Nurse Practitioner Advanced Practice Nurse 12/28/21 Laureano Quigley MD #2 [facility] [address] [place] [address] Consulting Physician Urology 02/04/22 Elsa Kenny APRN, MEDIUM CYCLE SALESPERSON #2 [facility] [address] [place] [address] Nurse Practitioner Cardiology 07/14/23 09/17/24 Saurav Goyal MD #2 [place] [address] Consulting Physician Pulmonary Disease 07/28/23 Yuni Meneses, [facility] Pastoral Worker [place] 11/27/23 12/04/23 Ayala Weaver APRN, SENIOR MATERIALS ANALYST #2 [place] [address] Nurse Practitioner Neurology 12/18/23 documented as of this encounter
--- OUTSIDE RECORDS SUMMARY | 2025-02-22 12:14 | XMS_ITS | Encounter Summary ---
Author Organization [facility] Address [address] [place] [address] Phone Care Team Providers Care Certified Executive Chef Name Role Phone Yuliana Florez APN Unavailable Unavailab Damaso Chaudhari MD Primary Care Provider [phone] Michel Yanez APRN, DISPATCHER REFINERY Unavailable [phone] Laureano Quigley MD Unavailable [phone] Elsa Kenny APRN, DISPATCHER REFINERY Unavailable + [phone] Saurav Goyal MD Unavailable Homer Alcala MD Primary Care Provider [phone] Yuni Meneses INTERACTIVE MEDIA SPECIALIST Unavailable Unavailab Ayala Orozco APRN, PANTOGRAPHER Unavailable + [phone] Reason for Visit * Reason Comments Medication Refill Encounter Details Date Type Department Care Team (Late st Contact Info) Description 07/04/2023 Refill [facility] - [facility] [place] #2 [place] [address] Liset Foote, PAC #2 [place] [address] Medication Refill Social History Tobacco Use Types [...] 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 Not on file Not on file documented as of this encounter Functional Status * BP Answer Date of Assessment Author 14807/04/2023 12:11 PM CDT Starla Higgins RN * Pulse Answer Date of Assessment Author 07/04/2023 12:11 PM CDT Starla Higgins RN * Resp Answer Date of Assessment Author 18 07/04/2023 1:35 PM CDT Shirley Bolden OT * SpO2 Answer Date of Assessment Author 07/04/2023 12:11 PM WAQAST Starla Higgins RN documented as of this encounter Mental Status * BP Answer Entry Date Author 14807/04/2023 12:11 PM CDT Starla Higgins RN * Pulse Answer Entry Date Author 07/04/2023 12:11 PM CDT Starla Higgins RN * SpO2 Answer Entry Date Author 07/04/2023 12:11 PM CDT Starla Higgins RN documented in this encounter Miscellaneous Notes * Telephone Encounter - Darline Seth RN - 07/04/2023 11:58 AM CDT Medication failed the protocol, provider to review and approve the medication order if appropriate. Requested Prescriptions Pending Prescriptions Disp Refills fluconazole (DIFLUCAN) 150 MG Tablet [Pharmacy Med Name: FLUCONAZOLE 150MG TABLET] 5 Tablet 0 Sig: TAKE 1 TAB BY MOUTH ONCE NEEDED FOR OTHER (YEAST INFECTION) FOR UP TO FIVE (5) DOSES. Not Delegated - Off Protocol Failed - 07/04/2023 10:41 AM Failed - This refill cannot be delegated Failed - Active on medication list Passed - Visit with relevant provider in past 12 months or upcoming 90 days Recent Visits Date Type Provider Dept 06/30/23 Office Visit Liset Foote PAC [facility] 10/06/22 Office [facility] 08/29/22 Telemedicine Damaso Vazquez MD [facility] Showing recent visits within past 365 days and meeting all other requirements Future Appointments No visits were found meeting these conditions. Showing future appointments within next 90 days and meeting all other requirements documented in this encounter Plan of Treatment Upcoming Encounters Date Type Department Care Team (Latest Contact Info) Description 03/03/2025 10:00 AM DIRECTOR LOAN Office Visit [facility] - Orthopedic Surgery - [place] #[address] [place] [address] Homer Alcala MD #2 [facility] [address] [place] [address] Ann Graham MD #2 [facility] [address] [place] [address] 03/04/2025 2:00 PM DIRECTOR LOAN Office Visit [facility] - Cardiology - [place] #2 [place] [address] Homer Alcala MD #2 [facility] [address] [place] [address] Caorlin Sykes, LAND LEASING EXAMINER, DISPATCHER REFINERY 2 [facility] [address] [place] [address] 03/19/2025 10:15 AM DIRECTOR LOAN [facility] 200 [facility], [facility] H1 [place] [address] Sujata Winn, LAND LEASING EXAMINER, DISPATCHER REFINERY [address] [place] [address] Michelle Patel, PT [place] Discharge Disposition: Discharged to home or Selfcare 03/21/2025 1:30 PM DIRECTOR LOAN Office Visit [facility] - Neurology - [place] #2 [place] [address] Ayala Weaver, LAND LEASING EXAMINER, PANTOGRAPHER #2 [place] [address] 04/29/2025 9:00 AM DIRECTOR LOAN Office Visit [facility] - Neurology - [place] #2 [place] [address] Ayala Weaver LAND LEASING EXAMINER, PANTOGRAPHER #2 [place] [address] 05/09/2025 11:00 AM DIRECTOR LOAN Office Visit [facility] - Pulmonology & Sleep Medicine - [place] #2 [place] [address] Saurav Goyal MD #2 [place] [address] documented as of this encounter Goals Goal Patient Goal Type Associated Problems Recent Progress Patient-Stated? Author Depression Behavioral Health On track(2024 4:40 PM CDT) Flora Miller LCSW Note: GOAL: Lisseth will manage depressive symptoms more effectively. Goal Reviewed with: patient today Readiness to change: Ready to change Department associated with goal: [facility] Steps to [...] Ready to change Department associated with goal: [facility] Steps to achieve goal: 1. [...] 04/05/2024 04/05/2024 04/05/2024 12:3 5 PM DIRECTOR LOAN COVID - 19 05/19/2024 05/19/2024 05/19/2024 6:18 PM CDT Assessment Noted Time PHQ-9 Depression Total Score: 1 01/12/20 19 5:00 PM DIRECTOR LOAN documented as of this encounter Care Teams Certified Executive Chef Relationship Specialty Start Date End Date Damaso Vazquez MD PCP - General Family Medicine 05/28/20 08/31/23 Homer Alcala MD #2 [facility] [address] [place] [address] PCP - General Family Medicine 09/01/23 Yuliana Florez, RESIDENTIAL RECYCLE DRIVER Advanced Practice Nurse 01/24/18 Michel Yanez APRN, DISPATCHER REFINERY #2 [place] [address] Nurse Practitioner Advanced Practice Nurse 12/28/21 Laureano Quigley MD #2 [facility] [address] [place] [address] Consulting Physician Urology 02/04/22 Elsa Kenny, LAND LEASING EXAMINER, DISPATCHER REFINERY #2 [facility] [address] [place] [address] Nurse Practitioner Cardiology 07/14/23 09/17/24 Saurav Goyal MD #2 [place] [address] Consulting Physician Pulmonary Disease 07/28/23 Yuni Meneses, INTERACTIVE [facility] Hat Forming Machine Operator [place] 11/27/23 12/04/23 Ayala Weaver, LAND LEASING EXAMINER, PANTOGRAPHER #2 [place] [address] Nurse Practitioner Neurology 12/18/23 documented as of this encounter
--- OUTSIDE RECORDS SUMMARY | 2025-02-22 12:14 | XMS_ITS | Encounter Summary ---
Author Organization [facility] Address [address] [place] [address] Phone Care Team Providers Care Air Box Tester Name Role Phone Yuliana Florze APN Unavailable Unavailab Damaso Chaudhari MD Primary Care Provider [phone] Michel Yanez APRN, LOAN DOCUMENTS CLOSER Unavailable [phone] Laureano Quigley MD Unavailable [phone] Elsa Kenny APRN, LOAN DOCUMENTS CLOSER Unavailable + [phone] Saurav Goyal MD Unavailable Homer Alcala MD Primary Care Provider [phone] Yuni Meneses MINIATURE MODEL MAKER Unavailable Unavailab Ayala Orozco APRN, MANAGER CULINARY Unavailable + [phone] Reason for Visit * Reason Comments Medication Refill Encounter Details Date Type Department Care Team (Late st Contact Info) Description 12/09/2021 Refill [facility] - Family Medicine - [place] #[address] [place] [address] Damaso Vazquez MD #[address] [place] [address] Medication Refill Social History Tobacco Use Types [...] 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 Requested Prescriptions Pending Prescriptions Disp Refills amphetamine-dextroamphetamine (ADDERALL XR) 20 MG CAPSULE SR 24 HR [Pharmacy Med Name: AMPHETAMINE/DEXTROAMPHETAMINE 20MG ER CAPSULE ER 24HR] 60 Capsule 0 Sig: TAKE TWO (2) CAPSULES BY MOUTH EVERY MORNING. Not Delegated - Off Protocol Failed - 12/09/2021 9:07 AM Failed - This refill cannot be [...] (Latest Contact Info) Description 03/03/2025 10:00 AM PEANUT SORTER Office Visit [facility] - Orthopedic Surgery - [place] #2 [place] [address] Homer Alcala MD #2 [facility] 205 [place] [address] Ann Graham MD #[address] [address] 03/04/2025 2:00 PM PEANUT SORTER Office Visit [facility] Cardiology - [place] #2 [place] [address] Homer Alcala MD #[address] [address] Carolin Sykes APRN, LOAN DOCUMENTS CLOSER [address] [address] 03/19/2025 10:15 AM PEANUT SORTER [facility] 200 [facility] H1 [place] [address] Sujata Winn APRN, LOAN DOCUMENTS CLOSER [address] [place] [address] Michelle Patel, PT [place] Discharge Disposition: Discharged to home or Selfcare 03/21/2025 1:30 PM PEANUT SORTER [facility] [place] #2 [place] [address] Ayala Weaver APRN, MANAGER CULINARY #2 [place] [address] 04/29/2025 9:00 AM PEANUT SORTER Office Visit [facility] - Neurology - [place] #2 [facility] [address] Ayala Weaver APRN, MANAGER CULINARY #2 [place] [address] 05/09/2025 11:00 AM PEANUT SORTER Office Visit [facility] - Pulmonology & Sleep Medicine - [place] #2 [facility] [address] Saurav Goyal MD #2 [facility] [address] documented as of this encounter Goals Goal Patient Goal Type Associated Problems Recent Progress Patient-Stated? Author Depression Behavioral Health On track(2024 4:40 PM CDT) No Flora Yip LCSW Note: GOAL: Lisseth will manage depressive symptoms more effectively. Goal Reviewed with: patient today Readiness to change: Ready to change Department associated with goal: [facility] BE[facility]IOR[facility] HEALTH [facility] Steps [...] Ready to change Department associated with goal: [facility] Steps [...] - 04/05/2024 04/05/2024 04/05/2024 12:3 5 PM PEANUT SORTER COVID - 05/19/2024 05/19/2024 05/19/2024 6:18 PM CDT Assessment Noted Time PHQ-9 Depression Total Score: 1 01/12/20 19 5:00 PM PEANUT SORTER documented as of this encounter Care Teams Air Box Tester Relationship Specialty Start Date End Date Damaso Vazquez MD PCP - General Family Medicine 05/28/20 08/31/23 Homer Alcala MD #[address] [address] PCP - General Family Medicine 09/01/23 Yuliana Florez GORE SEAMER Advanced Practice Nurse 01/24/18 Michel Yanez, ETL LEAD, LOAN DOCUMENTS CLOSER #2 [place] [address] Nurse Practitioner Advanced Practice Nurse 12/28/21 Laureano Quigley MD #2 [facility] [address] [place] [address] Consulting Physician Urology 02/04/22 Elsa Kenny, ETL LEAD, LOAN DOCUMENTS CLOSER #[facility] [address] [address] Nurse Practitioner Cardiology 07/14/23 09/17/24 Saurav Goyal MD #2 [place] [address] Consulting Physician Pulmonary Disease 07/28/23 Yuni Meneses, [facility] Manager Integrity [employer] Brakeman 11/27/23 12/04/23 Ayala Weaver APRN, MANAGER CULINARY #2 [place] [address] Nurse Practitioner Neurology 12/18/23 documented as of this encounter
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
--- OUTSIDE RECORDS SUMMARY | 2025-02-22 12:14 | XMS_ITS | Encounter Summary ---
Author Organization [facility] Address [address] [place] [address] Phone Care Team Providers Care Dispatcher Electric Power Name Role Phone Yuliana Florez APN Unavailable Unavailab Damaso Chaudhari MD Primary Care Provider [phone] Michel Yanez APRN, MEDICAL TECHNICIAN Unavailable [phone] Laureano Quigley MD Unavailable [phone] Elsa Kenny APRN, MEDICAL TECHNICIAN Unavailable [phone] Saurav Goyal MD Unavailable Homer Alcala MD Primary Care Provider [phone] Yuni Meneses STRIPING MACHINE OPERATOR Unavailable Unavailab Ayala Orozco APRN, INVENTORY CLERK Unavailable + [phone] Reason for Visit * Reason Comments Medication Refill Encounter Details Date Type Department Care Team (Late st Contact Info) Description 09/21/2021 Refill [facility] - Family Medicine [address] [place] [id number] Damaso Vazquez MD [address] [place] [address] Medication Refill Social History Tobacco Use Types [...] 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 Requested Prescriptions Pending Prescriptions Disp Refills metoprolol Succinate (TOPROL-XL) 50 MG TABLET SR 24 HR [Pharmacy Med Name: METOPROLOL SUCCINATE ER 50MG ER TABLET ER 24HR] 30 Tablet 3 Sig: TAKE ONE (1) TAB BY MOUTH DAILY. Beta-Blockers Protocol Passed - 09/21/2021 6:43 PM Passed - BP on record in the past year Clinician-entered: BP Readings from Last 3 Encounters: 06/11/21 124/66 05/04/21 108/68 09/16/20 120/68 Patient-entered: No data recorded Passed - Visit with relevant provider in past 12 months or upcoming 90 days Recent Visits Date Type Provider Dept 06/11/21 Office Visit Damaso Vazquez MD [facility] 05/04/21 Office Visit Damaso Vazquez MD [facility] Showing recent visits within past 365 days and meeting all other requirements Future Appointments Date Type Provider Dept 09/28/21 Appointment Damaso Vazquez MD [facility] Showing future appointments within next 90 days and meeting all other requirements levothyroxine (SYNTHROID) 100 MCG Tablet [Pharmacy Med Name: LEVOTHYROXINE SODIUM 100MCG TABLET] 30Tablet 3 Sig: TAKE ONE (1) TAB BY MOUTH DAILY. Thyroid Hormones Protocol Failed - 09/21/2021 6:43 PM Failed - Normal TSH in past 12 [...] requirements Future Appointments Date Type Provider Dept 09/28/21 Appointment Damaso Vazquez MD [facility] Showing future appointments within next 90 days and meeting all other requirements valACYclovir (VALTREX) 1 GM Tablet [Pharmacy Med Name: VALACYCLOVIR HCL 1GM TABLET] 180 Tablet 3 Sig: TAKE ONE (1) TAB BY MOUTH TWO (2) TIMES DAILY. Not Delegated - Herpes Agents Protocol Failed - 09/21/2021 6:43 PM Failed - This refill cannot be [...] requirements Future Appointments Date Type Provider Dept 09/28/21 Appointment Damaso Vazquez MD [facility] Showing future appointments within next 90 days and meeting all other requirements documented in this encounter Plan of Treatment Upcoming Encounters Date Type Department Care Team (Latest Contact Info) Description 03/03/2025 10:00 AM RESPITE COORDINATOR Office Visit [facility] - Orthopedic Surgery - [place] [address] [place] [phone] Homer Alcala MD [address] [address] Ann Graham MD [address] [address] 03/04/2025 2:00 PM RESPITE COORDINATOR Office Visit [facility] - Cardiology - [place] [address] [place] [phone] Homer Alcala MD [address] [address] Carolin Sykes APRN, MEDICAL TECHNICIAN [address] [address] 03/19/2025 10:15 AM RESPITE COORDINATOR Physical Therapy [facility] [address] [phone] Sujata Winn, ELECTRIC WELL LOGGING OPERATOR, MEDICAL TECHNICIAN [address] [place] [address] Michelle Patel, PT [place] Discharge Disposition: Discharged to home or Selfcare 03/21/2025 1:30 PM RESPITE COORDINATOR Office Visit [facility] - Neurology - [place] [address] [place] [id number] Ayala Weaver APRN, INVENTORY CLERK [address] [place] [address] 04/29/2025 9:00 AM RESPITE COORDINATOR Office Visit [facility] - Neurology - [place] [address] [place] [address] Ayala Weaver APRN, INVENTORY CLERK [address] [facility] [place] [address] 05/09/2025 11:00 AM RESPITE COORDINATOR Office Visit [facility] - Pulmonology & Sleep Medicine - [place] [address] [facility] [place] [address] Saurav Goyal MD [address] [facility] [place] [address] documented as of this encounter Goals Goal [...] 19 04/05/2024 04/05/2024 04/05/2024 12:3 5 PM RESPITE COORDINATOR COVID - 05/19/2024 05/19/2024 05/19/2024 6:18 PM CDT Assessment Noted Time PHQ-9 Depression Total Score: 1 01/12/20 19 5:00 PM RESPITE COORDINATOR documented as of this encounter Care Teams Dispatcher Electric Power Relationship Specialty Start Date End Date Damaso Vazquez MD PCP - General Family Medicine 05/28/20 08/31/23 Homer Alcala MD [address] [facility] [address] [place] [address] PCP - General Family Medicine 09/01/23 Yuliana Florez APN Advanced Practice Nurse 01/24/18 Michel Yanez APRN, MEDICAL TECHNICIAN [address] [facility] [place] [address] Nurse Practitioner Advanced Practice Nurse 12/28/21 Laureano Quigley MD [address] [facility] [address] [place] [address] Consulting Physician Urology 02/04/22 Elsa Kenny APRN, MEDICAL TECHNICIAN [address] [facility] [address] [place] [address] Nurse Practitioner Cardiology 07/14/23 09/17/24 Saurav Goyal MD [address] [place] [address] Consulting Physician Pulmonary Disease 07/28/23 Yuni Meneses LSW [place] Streetcar Conductor Cmm Technician 11/27/23 12/04/23 Ayala Weaver APRN, INVENTORY CLERK [address] [place] [address] Nurse Practitioner Neurology 12/18/23 documented as of this encounter
--- OUTSIDE RECORDS SUMMARY | 2025-02-22 12:14 | XMS_ITS | Encounter Summary ---
Author Organization [facility] Address [address] [place] [address] Phone Care Team Providers Care Surveying Technician Name Role Phone Yuliana Florez APN Unavailable Unavailab Damaso Chaudhari MD Primary Care Provider [phone] Michel Yanez APRN, WOOL MERCHANT Unavailable [phone] Laureano Quigley MD Unavailable [phone] Elsa Kenny APRN, WOOL MERCHANT Unavailable + [phone] Saurav Goyal MD Unavailable Homer Alcala MD Primary Care Provider [phone] Yuni Meneses COST CONTROL SUPERVISOR Unavailable Unavailab Ayala Orozco APRN, ORTHOPEDIC TECHNICIAN Unavailable + [phone] Reason for Visit * Reason Comments Medication Refill Encounter Details Date Type Department Care Team (Late st Contact Info) Description 03/14/2022 [facility]ill [facility] - Family Medicine - [place] [address] [place] [address] Damaso Vazquez MD #[address] [place] [address] Medication Refill Social History Tobacco Use Types [...] 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 Requested Prescriptions Pending Prescriptions Disp Refills amphetamine-dextroamphetamine (ADDERALL XR) 20 MG CAPSULE SR 24 HR [Pharmacy Med Name: AMPHETAMINE/DEXTROAMPHETAMINE 20MG ER CAPSULE ER 24HR] 60 Capsule 0 Sig: TAKE TWO (2) CAPSULES BY MOUTH EVERY MORNING. Not Delegated - Off Protocol Failed - 03/14/2022 9:20 AM Failed - This refill cannot be delegated Passed - Visit with relevant provider in past 12 months or upcoming 90 days Recent Visits Date Type Provider Dept 06/11/21 Office Visit Damaso Vazquez MD [facility] 05/04/21 Office Visit Damaso Vazquez MD [facility] Showing recent visits within past 365 days and meeting all other requirements Future Appointments Date Type Provider Dept 04/04/22 Appointment [facility] Show[facility] future appointments within next 90 days and meeting all other requirements IMEDIA COORDINATOR documented in this encounter Plan of Treatment Upcoming Encounters Date Type Department Care Team (Latest Contact Info) Description 03/03/2025 10:00 AM MULTIMEDIA COORDINATOR [facility] [place] [address]2 [place] [address] Hmoer Alcala MD #2 [facility] [address] [place] [address] Ann Graham MD #2 [facility] [address] [place] [address] 03/04/2025 2:00 PM MULTIMEDIA COORDINATOR Office Visit [facility] - Cardiology - [place] [address]2 [place] [address] Homer Alcala MD #2 [facility] [address] [place] [address] Carolin Sykes APRN, WOOL MERCHANT 2 [facility] [address] [place] [address] 03/19/2025 10:15 AM MULTIMEDIA COORDINATOR [facility] 200 [facility], [facility] [address] [place] [address] Sujata Winn, ASSISTANT PROFESSOR OF PHYSICS, WOOL MERCHANT [address] [place] [address] Michelle Patel, PT [place] Discharge Disposition: Discharged to home or Selfcare 03/21/2025 1:30 PM MULTIMEDIA COORDINATOR [facility] - [place] #2 [place] [address] Ayala Weaver ASSISTANT PROFESSOR OF PHYSICS, ORTHOPEDIC TECHNICIAN #2 [place] [address] 04/29/2025 9:00 AM MULTIMEDIA COORDINATOR Office Visit [facility] - Neurology - [place] #2 [place] [address] Ayala Weaver, ASSISTANT PROFESSOR OF PHYSICS, ORTHOPEDIC TECHNICIAN #2 [place] [address] 05/09/2025 11:00 AM MULTIMEDIA COORDINATOR Office Visit [facility] - Pulmonology & Sleep Medicine - [place] #2 [place] [address] Saurav Goyal MD #2 [place] [address] documented as of this encounter Goals Goal [...] - 04/05/2024 04/05/2024 04/05/2024 12:3 5 PM MULTIMEDIA COORDINATOR COVID - 05/19/2024 05/19/2024 05/19/2024 6:18 PM CDT Assessment Noted Time PHQ-9 Depression Total Score: 1 01/12/20 19 5:00 PM MULTIMEDIA COORDINATOR documented as of this encounter Care Teams Surveying Technician Relationship Specialty Start Date End Date Damaso Vazquez MD PCP - General Family Medicine 05/28/20 08/31/23 Homer Alcala MD #[address] [address] PCP - General Family Medicine 09/01/23 Yuliana Florez CYLINDER VALVE REPAIRER Advanced Practice Nurse 01/24/18 Michel Yanez ASSISTANT PROFESSOR OF PHYSICS, WOOL MERCHANT #2 [place] [address] Nurse Practitioner Advanced Practice Nurse 12/28/21 Laureano Quigley MD #2 [facility] [address] [place] [address] Consulting Physician Urology 02/04/22 Elsa Kenny, ASSISTANT PROFESSOR OF PHYSICS, WOOL MERCHANT #2 [facility], [facility] [address] [place] [address] Nurse Practitioner Cardiology 07/14/23 09/17/24 Saurav Goyal MD #[address] [place] [address] Consulting Physician Pulmonary Disease 07/28/23 Yuni Meneses, [facility] Director Validation Ornamental Iron Worker 11/27/23 12/04/23 Ayala Weaver APRN, ORTHOPEDIC TECHNICIAN #[address] [place] [address] Nurse Practitioner Neurology 12/18/23 documented as of this encounter
--- OUTSIDE RECORDS SUMMARY | 2025-02-22 12:14 | XMS_ITS | Encounter Summary ---
Author Organization [facility] Address [address] [place] [address] Phone Care Team Providers Care Bdr Name Role Phone Yuliana Florez APN Unavailable Unavailab Damaso Chaudhari MD Primary Care Provider [phone] Michel Yanez APRN, PHP MYSQL WEB DEVELOPER Unavailable [phone] Laureano Quigley MD Unavailable [phone] Elsa Kenny APRN, PHP MYSQL WEB DEVELOPER Unavailable + [phone] Saurav Goyal MD Unavailable Homer Alcala MD Primary Care Provider [phone] Yuni Meneses CERTIFIED TUMOR REGISTRAR Unavailable Unavailab Ayala Orozco APRN, SHIPPING TRACK SUPERVISOR Unavailable + [phone] Reason for Visit * Reason Comments Medication Refill Encounter Details Date Type Department Care Team (Late st Contact Info) Description 10/14/2021 Refill [facility] - Family Medicine [facility] #2 [place] [address] Damaso Vazquez MD #1 [place] [address] Medication Refill Social History Tobacco Use Types Packs/Day Years Used Date Smoking Tobacco: Former Cigarettes 0.5 30 0 03/13/1988 - 03/13/2018 Smokeless Tobacco: Never Alcohol Use Standard Drinks/Week Comments Not Currently 0 (1 standard drink = 0.6 oz pur e alcohol) seldom PHQ-2 Answer Date Recorded Total Score - Questions 1-9 0 03/03/2021 Sexually Active Control Partners Comments Yes Comments No Sex and Gender Information Value Date Recorded Sex Assigned at Not on file Legal Sex Female 8:32 AM CDT Gender Identity Not on file Sexual Orientation Not on file 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 Not on file Not on file documented as of this encounter Plan of Treatment Upcoming Encounters Date Type Department Care Team (Latest Contact Info) Description 03/03/2025 10:00 AM NURSE MONITORING Office Visit [facility] - Orthopedic Surgery - [place] #2 [place] [address] Homer Alcala MD #2 [facility] 205 [place] [address] Ann Graham MD #2 [facility] [address] [place] [address] 03/04/2025 2:00 PM NURSE MONITORING Office Visit [facility] - Cardiology [facility] #2 [place] [address] Homer Alcala MD #2 [facility] [address] [place] [address] Carolin Sykes, SCIENCE ANALYST, PHP MYSQL WEB DEVELOPER 2 [facility] [address] [place] [address] 03/19/2025 10:15 AM NURSE MONITORING Physical [facility] 200 [facility], [place] [address] [address] Sujata Winn, SCIENCE ANALYST, PHP MYSQL WEB DEVELOPER [address] [place] [address] Michelle Patel, PT [place] Discharge Disposition: Discharged to home or Selfcare 03/21/2025 1:30 PM NURSE MONITORING Office [facility] - [facility]rology - [place] #2 [place] [address] Ayala Weaver APRN, SHIPPING TRACK SUPERVISOR #2 [place] [address] 04/29/2025 9:00 AM NURSE MONITORING [facility] [place] [address] [place] [address] Ayala Weaver APRN, SHIPPING TRACK SUPERVISOR #2 [place] [address] 05/09/2025 11:00 AM NURSE MONITORING Office Visit [facility] - Pulmonology & Sleep Medicine [facility] #2 [place] [address] Saurav Goyal MD #2 [place] [address] documented as of this encounter Goals Goal Patient Goal Type Associated Problems Recent Progress Patient-Stated? Author Depression Behavioral Health On track(2024 4:40 PM CDT) Flora Miller, HOOP BENDING MACHINE OPERATOR Note: GOAL: Lisseth will manage depressive symptoms more effectively. Goal Reviewed with: patient today Readiness to change: Ready to change Department associated with goal: [facility] Steps to [...] Ready to change Department associated with goal: [facility] Steps to [...] 19 04/05/2024 04/05/2024 04/05/2024 12:3 5 PM NURSE MONITORING COVID - 19 05/19/2024 05/19/2024 05/19/2024 6:18 PM CDT Assessment Noted Time PHQ-9 Depression Total Score: 1 01/12/20 19 5:00 PM NURSE MONITORING documented as of this encounter Care Teams Bdr Relationship Specialty Start Date End Date Damaso Vazquez MD PCP - General Family Medicine 05/28/20 08/31/23 Homer Alcala MD #2 [facility] [address] [place] [address] PCP - General Family Medicine 09/01/23 Yuliana Florez, TITLE INSPECTOR Advanced Practice Nurse 01/24/18 Michel Yanez, SCIENCE ANALYST, PHP MYSQL WEB DEVELOPER #2 [place] [address] Nurse Practitioner Advanced Practice Nurse 12/28/21 Laureano Quigley MD #[address] [place] [facility] [address] [place] [address] Consulting Physician Urology 02/04/22 Elsa Kenny, SCIENCE ANALYST, PHP MYSQL WEB DEVELOPER #2 [facility] [address] [place] [address] Nurse Practitioner Cardiology 07/14/23 09/17/24 Saurav Goyal MD #2 [place] [address] Consulting Physician Pulmonary Disease 07/28/23 Yuni Meneses, CERTIFIED TUMOR REGISTRAR [place] [employer] Tact[employer] Instructor Medical Accounting Clerk 11/27/23 12/04/23 Ayala Weaver, SCIENCE ANALYST, SHIPPING TRACK SUPERVISOR #[address] [place] [address] Nurse Practitioner Neurology 12/18/23 documented as of this encounter
--- OUTSIDE RECORDS SUMMARY | 2025-02-22 12:14 | XMS_ITS | Encounter Summary ---
Author Organization [facility] Address [address] [place] [address] Phone Care Team Providers Care Community Relations Advisor Name Role Phone Yuliana Florez APN Unavailable Unavailab Damaso Chaudhari MD Primary Care Provider [phone] Michel Yanez APRN, SAFETY AND SECURITY MANAGER Unavailable [phone] Laureano Quigley MD Unavailable [phone] Elsa Kenny APRN, SAFETY AND SECURITY MANAGER Unavailable + [phone] Saurav Goyal MD Unavailable Homer Alcala MD Primary Care Provider [phone] Yuni Meneses CURING PRESS OPERATOR Unavailable Unavailab Ayala Orozco APRN, SLAGGER Unavailable + [phone] Reason for Visit * Reason Comments Medication Refill Encounter Details Date Type Department Care Team (Late st Contact Info) Description 06/27/2022 Refill [facility] #[address] [place] [address] Damaso Vazquez MD #[address] [place] [address] Medication Refill Social History Tobacco Use Types [...] 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 No / Unsure 06/30/2022 9:16 AM CDT documented as of this encounter Functional Status documented as of this encounter Mental Status * Question Answer Entry Date Author BP 108/62 06/27/2022 4:09 PM CDT Opal Veronica ams Temp 97.3 06/27/2022 4:09 PM CDT Opal Veronica ams Pulse 71 06/27/2022 4:09 PM CDT Opal Veronica ams SpO2 96 06/27/2022 4:09 PM CDT Opal Veronica ams documented in this encounter Miscellaneous Notes * Telephone Encounter - Winifred Contreras RN - 06/27/2022 9:37 AM CDT Medication failed the protocol, provider to review and approve the medication order if appropriate. Requested Prescriptions Pending Prescriptions Disp Refills rosuvastatin (CRESTOR) 20 MG Tablet [Pharmacy Med Name: ROSUVASTATIN CALCIUM 20MG TABLET] 60 Tablet Sig: TAKE 1 TABLET BY MOUTH DAILY Hmg CoA Reductase Inhibitors Protocol Failed - 06/27/2022 6:41 AM Failed - Lipid panel in past 12 months LDL Date Value Ref Range Status 04/19/2022 64 0 - 130 mg/dL Final Passed - Visit with relevant provider in past 12 months or upcoming 90 days Recent Visits Date Type Provider Dept 04/04/22 Office Visit Damaso Vazquez MD [facility] 03/21/22 Office Visit Damaso Vazquez MD [facility] Showing recent visits within past 365 days and meeting all other requirements Today's Visits Date Type Provider Dept 06/27/22 Appointment Cheryl Blackwell APRN, SAFETY AND SECURITY MANAGER [facility] Showing today's visits and meeting all other requirements Future Appointments No visits were found meeting these conditions. Showing future appointments within next 90 days and meeting all other requirements documented in this encounter Plan of Treatment Upcoming Encounters Date Type Department Care Team (Latest Contact Info) Description 03/03/2025 10:00 AM BREAKER OPERATOR Office Visit [facility] - Orthopedic Surgery - [place] #2 [place] [address] Homer Alcala MD #2 [facility] [address] [place] [address] Ann Graham MD #[address] [facility] [address] [place] [address] 03/04/2025 2:00 PM BREAKER OPERATOR Office Visit [facility] - Cardiology - [place] #2 [place] [address] Homer Alcala MD #2 [facility] [address] [place] [address] Carolin Sykes, COMPUTER OPERATIONS TECHNICIAN, SAFETY AND SECURITY MANAGER 2 [facility] [address] [place] [address] 03/19/2025 10:15 AM BREAKER OPERATOR Physical Therapy [facility] at [facility] 200 [facility], [place] [address] [address] Sujata Winn, COMPUTER OPERATIONS TECHNICIAN, SAFETY AND SECURITY MANAGER [address] [place] [address] Michelle Patel, PT [place] Discharge Disposition: Discharged to home or Selfcare 03/21/2025 1:30 PM BREAKER OPERATOR [facility] [place] #2 [place] [address] Ayala Weaver APRN, SLAGGER #2 [place] [address] 04/29/2025 9:00 AM BREAKER OPERATOR [facility] - [place] #2 [place] [address] Ayala Weaver APRN, SLAGGER #2 [place] [address] 05/09/2025 11:00 AM BREAKER OPERATOR Office Visit [facility] - Pulmonology & Sleep Medicine [facility] #2 [place] [address] Saurav Goyal MD #2 [place] [address] documented as of this encounter Goals Goal [...] 19 04/05/2024 04/05/2024 04/05/2024 12:3 5 PM BREAKER OPERATOR COVID - 19 05/19/2024 05/19/2024 05/19/2024 6:18 PM CDT Assessment Noted Time PHQ-9 Depression Total Score: 1 01/12/20 19 5:00 PM BREAKER OPERATOR documented as of this encounter Care Teams Community Relations Advisor Relationship Specialty Start Date End Date Damaso Vazquez MD PCP - General Family Medicine 05/28/20 08/31/23 Homer Alcala MD #2 [facility] [address] [place] [address] PCP - General Family Medicine 09/01/23 Yuliana Florez, LIVESTOCK DEALER Advanced Practice Nurse 01/24/18 Michel Yanez, COMPUTER OPERATIONS TECHNICIAN, SAFETY AND SECURITY MANAGER #2 [place] [address] Nurse Practitioner Advanced Practice Nurse 12/28/21 Laureano Quigley MD #2 [facility] [address] [place] [address] Consulting Physician Urology 02/04/22 Elsa Kenny, COMPUTER OPERATIONS TECHNICIAN, SAFETY AND SECURITY MANAGER #2 [facility] [address] [place] [address] Nurse Practitioner Cardiology 07/14/23 09/17/24 Saurav Goyal MD #2 [place] [address] Consulting Physician Pulmonary Disease 07/28/23 Yuni Meneses, CURING PRESS OPERATOR [place] Production Floater Felt Hanger 11/27/23 12/04/23 Ayala Weaver, COMPUTER OPERATIONS TECHNICIAN, SLAGGER #[address] [place] [address] Nurse Practitioner Neurology 12/18/23 documented as of this encounter
--- OUTSIDE RECORDS SUMMARY | 2025-02-22 12:14 | XMS_ITS | Encounter Summary ---
Author Organization [facility] Address [address] [place] [address] Phone Care Team Providers Care Caponizer Name Role Phone Yuliana Florez APN Unavailable Unavailab Damaso Chaudhari MD Primary Care Provider [phone] Michel Yanez APRN, MOTOR INSTALLER Unavailable [phone] Laureano Quigley MD Unavailable [phone] Elsa Kenny APRN, MOTOR INSTALLER Unavailable + [phone] Saurav Goyal MD Unavailable Homer Alcala MD Primary Care Provider [phone] Yuni Meneses CAREER AGENT Unavailable Unavailab Ayala Orozco APRN, PATENT ENGINEER Unavailable + [phone] Reason for Visit * Reason Comments Medication Refill Encounter Details Date Type Department Care Team (Late st Contact Info) Description 08/30/2021 Refill [facility] - Family Medicine - [place] [address] [place] [address] Damaso Vazquez MD #[address] [place] [address] Medication Refill Social History Tobacco Use Types [...] 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 Requested Prescriptions Pending Prescriptions Disp Refills amphetamine-dextroamphetamine (ADDERALL) 20 MG Tablet [Pharmacy Med Name: AMPHETAMINE/DEXTROAMPHETAMINE 20MG TABLET] 30 Tablet 0 Sig: TAKE ONE TAB BY MOUTH EVERY DAY AT NOON Not Delegated - Off Protocol Failed - 08/30/2021 5:52 PM Failed - This refill cannot be delegated Passed - Visit with relevant provider in past 12 months or upcoming 90 days Recent Visits Date Type Provider Dept 06/11/21 Office Visit Damaso Vazquez MD [facility] 05/04/21 Office Visit Damaso Vazquez MD [facility] 09/16/20 Office Visit Damaso Vazquez MD [facility] 09/01/20 Office Visit Damaso Vazquez MD [facility] Showing recent visits within past 365 days and meeting all other requirements Future Appointments Date Type Provider Dept 10/15/21 Appointment Damaso Vazquez MD [facility] Showing future appointments within next 90 days and meeting all other requirements documented in this encounter Plan of Treatment Upcoming Encounters Date Type Department Care Team (Latest Contact Info) Description 03/03/2025 10:00 AM SERVICE TECH Office Visit [facility] Medical [facility] - Orthopedic Surgery - [place] #2 [place] [address] Homer Alacla MD #2 [facility] [address] [place] [address] Ann Graham MD #[address] [address] 03/04/2025 2:00 PM SERVICE TECH Office Visit [facility] Cardiology - [place] #2 [place] [address] Homer Alcala MD #2 [facility] [address] [place] [address] Carolin Sykes APRN, MOTOR INSTALLER 2 [facility] [address] [place] [address] 03/19/2025 10:15 AM SERVICE TECH [facility] 200 [facility], [facility] [address] [place] [address] Sujata Winn, DISPATCHER TOW TRUCK, MOTOR INSTALLER [address] [place] [address] Michelle Patel, PT [place] Discharge Disposition: Discharged to home or Selfcare 03/21/2025 1:30 PM SERVICE TECH Office Visit [facility] Neurology - [place] #2 [facility] [place] [address] Ayala Weaver, DISPATCHER TOW TRUCK, PATENT ENGINEER #2 [facility] [address] 04/29/2025 9:00 AM SERVICE TECH Office Visit [facility] Neurology - [place] #2 [facility] [place] [address] Ayala Weaver, DISPATCHER TOW TRUCK, PATENT ENGINEER #2 [facility] [address] 05/09/2025 11:00 AM SERVICE TECH Office Visit [facility] Pulmonology & Sleep Medicine - [place] #2 [facility] [place] [address] Saurav Goyal MD #2 [facility] [address] documented as of this encounter Goals Goal Patient Goal Type Associated Problems Recent Progress Patient-Stated? Author Depression Behavioral Health On track(2024 4:40 PM CDT) No Flora Yip LCSW Note: GOAL: Lisseth will manage depressive symptoms more effectively. Goal Reviewed with: patient today Readiness to change: Ready to change Department associated with goal: [facility] Steps to [...] 4:40 PM CDT) No Varble, Flora A, BRINE PROCESS OPERATOR Note: GOAL: Lisseth will process feelings of grief and loss related to her son. Goal Reviewed with: patient today Readiness to change: Ready to change Department associated with goal: [facility] Steps to [...] 19 04/05/2024 04/05/2024 04/05/2024 12:3 5 PM SERVICE TECH COVID - 19 05/19/2024 05/19/2024 05/19/2024 6:18 PM CDT Assessment Noted Time PHQ-9 Depression Total Score: 1 01/12/20 19 5:00 PM SERVICE TECH documented as of this encounter Care Teams Caponizer Relationship Specialty Start Date End Date Damaso Vazquez MD PCP - General Family Medicine 05/28/20 08/31/23 Homer Alcala MD #[address] [address] PCP - General Family Medicine 09/01/23 Yuliana Florez APN Advanced Practice Nurse 01/24/18 Michel Yanez APRN, MOTOR INSTALLER #2 [place] [address] Nurse Practitioner Advanced Practice Nurse 12/28/21 Laureano Quigley MD #2 [facility], [facility] [address] [place] [address] Consulting Physician Urology 02/04/22 Elsa Kenny APRN, MOTOR INSTALLER #2 [facility], [facility] [address] [place] [address] Nurse Practitioner Cardiology 07/14/23 09/17/24 Saurav Goyal MD #2 [place] [address] Consulting Physician Pulmonary Disease 07/28/23 Yuni Meneses, CAREER AGENTSTATE [employer] Key Holder Psychiatric Tech 11/27/23 12/04/23 Ayala Weaver APRN, PATENT ENGINEER #2 [place] [address] Nurse Practitioner Neurology 12/18/23 documented as of this encounter
--- OUTSIDE RECORDS SUMMARY | 2025-02-22 12:14 | XMS_ITS | Encounter Summary ---
Author Organization [facility] Address [address] [place] [address] Phone Care Team Providers Care Barrel Brander Name Role Phone Yuliana Florez APN Unavailable Unavailab Michel Shepherd DATA MIGRATION LEAD, WRITING CENTER DIRECTOR Unavailable [phone] Laureano Quigley MD Unavailable [phone] Elsa Kenny DATA MIGRATION LEAD, WRITING CENTER DIRECTOR Unavailable + [phone] Saurav Goyal MD Unavailable Homer Alcala MD Primary Care Provider [phone] Ayala Weaver DATA MIGRATION LEAD, ADMINISTRATIVE COURT JUSTICE Unavailable + [phone] Encounter Details Date Type Department Care Team (Late st Contact Info) Description 07/08/2024 Behavioral Health Patient Survey [facility] [address] [place] [phone] GrantFlora howell, SHEET COMBINING OPERATOR #1 [facility] [place] [address] Social History Tobacco Use Types Packs/Day Years Used Date Smoking Tobacco: Former Cigarettes 0 Q uit: 03/13/1988 Smokeless Tobacco: Never Alcohol Use Standard Drinks/Week Comments Not Currently 0 (1 standard drink = 0.6 oz pur e alcohol) seldom [facility] Utilities Answer Date Recorded In the past 12 months has e electric, gas, oil, or water [employer] threatened to shut off services in your home? Patient declined 04/16/2024 Social Connection and Isolation Panel Answer Date Recorded In a typical week, how many times do you talk on the phone with family, friends, or neighbors? Patient declined 04/16/2024 How often do you get togethe r with friends or relatives? Patient declined 04/16/2024 How often do you attend worship or voodoo serv ices? Patient declined 04/16/2024 Do you belong to any clubs o r organizations such as worship groups, unions, fraternal or athletic groups, or [...] Total Score - Questions 1-9 13 02/03 [facility] of Occupat ional Health - Occupational Stress [...] any time in the past 12 m [facility], were you homeless or [...] (Latest Contact Info) Description 03/03/2025 10:00 AM ENGINE MONITOR [facility] Visit [facility] - Orthopedic Surgery - [place] [address] [place] [address] Homer Alcala MD #2 [facility] [address] [place] [address] Ann Graham MD #2 [facility] [address] [place] [address] 03/04/2025 2:00 PM ENGINE MONITOR [facility] [place] [address] [place] [address] Homer Alcala MD #2 [facility] [address] [place] [address] Carolin Sykes APRN, WRITING CENTER DIRECTOR 2 [facility] [address] [place] [address] 03/19/2025 10:15 AM ENGINE MONITOR Physical Therapy [facility] 200 [facility] H[address] [place] [address] Sujata Winn, GABRIEL, WRITING CENTER DIRECTOR [address] [place] [address] Michelle Patel, PT [place] Discharge Disposition: Discharged to home or Selfcare 03/21/2025 1:30 PM ENGINE MONITOR [facility] [place] [address] [place] [phone] Ayala Weaver, DATA MIGRATION LEAD, ADMINISTRATIVE COURT JUSTICE #2 [place] [address] 04/29/2025 9:00 AM ENGINE MONITOR [facility] [place] [address] [place] [address] Ayala Weaver, DATA MIGRATION LEAD, ADMINISTRATIVE COURT JUSTICE #2 [place] [address] 05/09/2025 11:00 AM ENGINE MONITOR Office Visit [facility] - Pulmonology & Sleep Medicine - [place] [address] [place] [address] Saurav Goyal MD #2 [place] [address] documented as of this encounter Goals Goal Patient Goal Type Associated Problems Recent Progress Patient-Stated? Author Depression Behavioral Health On track(2024 4:40 PM CDT) No Flora Yip LCSW Note: GOAL: Lisseth will manage depressive symptoms more effectively. Goal Reviewed with: patient today Readiness to change: Ready to change Department associated with goal: [facility]IOR[facility] HE[facility] Steps to [...] track(2024 4:40 PM CDT) No Flora Yip, SHEET COMBINING OPERATOR Note: GOAL: Lisseth will process feelings of grief and loss related to her son. Goal Reviewed with: patient today Readiness to change: Ready to change Department associated with goal: [facility] Steps to [...] Ready to change Department associated with goal: [facility] Steps to [...] Ready to change Department associated with goal: [facility] SERVICES Steps to [...] Depression Total Score: 13 024 2:00 PM ENGINE MONITOR documented as of this encounter Care Teams Barrel Brander Relationship Specialty Start Date End Date Homer Alcala MD #2 [place] [address] PCP - General Family Medicine 09/01/23 Yuliana Florez, EQUIPMENT HIRE MANAGER Advanced Practice Nurse 01/24/18 Michel Yanez, DATA MIGRATION LEAD, WRITING CENTER DIRECTOR #2 [place] [address] Nurse Practitioner Advanced Practice Nurse 12/28/21 Laureano Quigley MD #2 [facility], [facility] [address] [place] [address] Consulting Physician Urology 02/04/22 Elsa Kenny, DATA MIGRATION LEAD, WRITING CENTER DIRECTOR #2 [facility] [address] [place] [address] Nurse Practitioner Cardiology 07/14/23 09/17/24 Saurav Goyal MD #2 [place] [address] Consulting Physician Pulmonary Disease 07/28/23 Ayala Weaver, DATA MIGRATION LEAD, ADMINISTRATIVE COURT JUSTICE #2 [place] [address] Nurse Practitioner Neurology 12/18/23 documented as of this encounter
--- OUTSIDE RECORDS SUMMARY | 2025-02-22 12:14 | XMS_ITS | Encounter Summary ---
Author Organization [facility] Address [address] [place] [address] Phone Care Team Providers Care Tax Technician Name Role Phone Yuliana Florez APN Unavailable Unavailab Damaso Chaudhari MD Primary Care Provider [phone] Michel Yanez APRN, COMMUNITY PLANNER Unavailable [phone] Laureano Quiglye MD Unavailable [phone] Elsa Kenny APRN, COMMUNITY PLANNER Unavailable + [phone] Saurav Goyal MD Unavailable Homer Alcala MD Primary Care Provider [phone] Yuni Meneses CASTING ASSOCIATE Unavailable Unavailab Ayala Orozco APRN, ACADEMIC DIRECTOR Unavailable + [phone] Reason for Visit * Reason Comments Medication Refill Encounter Details Date Type Department Care Team (Late st Contact Info) Description 07/01/2021 [facility]ill [facility] [place] [address] Damaso Vazquez MD #1 [place] [address] Medication Refill Social History Tobacco Use Types [...] Encounter - Darline Seth RN - 07/01/2021 1:50 PM CDT Medication failed the protocol, provider to review and approve the medication order if appropriate. Requested Prescriptions Pending Prescriptions Disp Refills levothyroxine (SYNTHROID) 100 MCG Tablet [Pharmacy Med Name: LEVOTHYROXINE SODIUM 100MCG TABLET] 30Tablet 3 Sig: TAKE ONE (1) TAB BY MOUTH DAILY. Thyroid Hormones Protocol Failed - 07/01/2021 10:00 AM Failed - Normal TSH in past [...] [place] 09/01/20 Office Visit Damaso Vazquez MD [facility] Showing recent visits within past 365 days and meeting all other requirements Future Appointments No visits were found meeting these conditions. Showing future appointments within next 90 days and meeting all other requirements metoprolol Succinate (TOPROL-XL) 50 MG TABLET SR 24 HR [Pharmacy Med Name: METOPROLOL SUCCINATE ER 50MG ER TABLET ER 24HR] 30 Tablet 3 Sig: TAKE ONE (1) TAB BY MOUTH DAILY. Beta-Blockers Protocol Passed - 07/01/2021 10:00 AM Passed - BP on record in [...] [place] 09/01/20 Office Visit Damaso Vazquez MD [facility] Showing recent visits within past 365 days and meeting all other requirements Future Appointments No visits were found meeting these conditions. Showing future appointments within next 90 days and meeting all other requirements documented in this encounter Plan of Treatment Upcoming Encounters Date Type Department Care Team (Latest Contact Info) Description 03/03/2025 10:00 AM BATT MACHINE OPERATOR Office Visit [facility] - Orthopedic Surgery - [place] #[address] [place] [address] Homer Alcala MD #[address] [place] [address] [address] Ann Graham MD #2 [facility] [address] [place] [address] 03/04/2025 2:00 PM BATT MACHINE OPERATOR [facility] #2 [place] [phone] Homer Alcala MD #2 [facility] [address] [place] [address] Carolin Sykes, NEWSPAPER COPY EDITOR, COMMUNITY PLANNER 2 [facility] [address] [place] [address] 03/19/2025 10:15 AM BATT MACHINE OPERATOR [facility] 200 [facility], [facility] H1 [place] [address] Sujata Winn, NEWSPAPER COPY EDITOR, COMMUNITY PLANNER [address] [place] [address] Michelle Patel, PT [place] Discharge Disposition: Discharged to home or Selfcare 03/21/2025 1:30 PM BATT MACHINE OPERATOR [facility] #2 [place] [address] Ayala Weaver APRN, ACADEMIC DIRECTOR #2 [place] [address] 04/29/2025 9:00 AM BATT MACHINE OPERATOR [facility] #2 [place] [address] Ayala Weaver APRN, ACADEMIC DIRECTOR #2 [place] [address] 05/09/2025 11:00 AM BATT MACHINE OPERATOR [facility] Visit [facility] - Pulmonology & Sleep Medicine - [place] #[address] [place] [address] Saurav Goyal MD #[address] [place] [address] documented as of this encounter Goals Goal Patient Goal Type Associated Problems Recent Progress Patient-Stated? Author Depression Behavioral Health On track(2024 4:40 PM CDT) No Flora Yip LCSW Note: GOAL: Lisseth will manage depressive symptoms more effectively. Goal Reviewed with: patient today Readiness to change: Ready to change Department associated with goal: [facility] BEHAVIORAL HEALTH SERVICES Steps to [...] Ready to change Department associated with goal: [facility] BE[facility]AVIORAL HE[facility] SERVICES Steps to [...] 19 04/05/2024 04/05/2024 04/05/2024 12:3 5 PM BATT MACHINE OPERATOR COVID - 19 05/19/2024 05/19/2024 05/19/2024 6:18 PM CDT Assessment Noted Time PHQ-9 Depression Total Score: 1 01/12/20 19 5:00 PM BATT MACHINE OPERATOR documented as of this encounter Care Teams Tax Technician Relationship Specialty Start Date End Date Damaso Vazquez MD PCP - General Family Medicine 05/28/20 08/31/23 Homer Alcala MD #2 [facility] [address] [place] [address] PCP - General Family Medicine 09/01/23 Yuliana Florez, FLYER REPAIRER Advanced Practice Nurse 01/24/18 Michel Yanez, NEWSPAPER COPY EDITOR, COMMUNITY PLANNER #2 [place] [address] Nurse Practitioner Advanced Practice Nurse 12/28/21 Laureano Quigley MD #2 [facility] [address] [place] [address] Consulting Physician Urology 02/04/22 Elsa Kenny, NEWSPAPER COPY EDITOR, COMMUNITY PLANNER #2 [facility] [address] [place] [address] Nurse Practitioner Cardiology 07/14/23 09/17/24 Saurav Goyal MD #2 [place] [address] Consulting Physician Pulmonary Disease 07/28/23 Yuni Meneses, CASTING ASSOCIATE [place] Recruiting Administrator Airline Security Representative 11/27/23 12/04/23 Ayala Weaver, NEWSPAPER COPY EDITOR, ACADEMIC DIRECTOR #2 [place] [address] Nurse Practitioner Neurology 12/18/23 documented as of this encounter
--- OUTSIDE RECORDS SUMMARY | 2025-02-22 12:14 | XMS_ITS | Encounter Summary ---
Author Organization [facility] Address [address] [place] [address] Phone Care Team Providers Care Sheet Metal Worker Supervisor Name Role Phone Yuliana Florez APN Unavailable Unavailab Damaso Chaudhari MD Primary Care Provider Michel Yanez APRN, DESK ASSISTANT Unavailable [phone] Laureano Quigley MD Unavailable [phone] Elsa Kenny APRN, DESK ASSISTANT Unavailable + [phone] Saurav Goyal MD Unavailable Homer Alcala MD Primary Care Provider [phone] Yuni Meneses BANQUET PILOT Unavailable Unavailab Ayala Orozco APRN, CATERING TRUCK OPERATOR Unavailable + [phone] Reason for Visit * Reason Comments Medication Refill Encounter Details Date Type Department Care Team (Late st Contact Info) Description 07/06/2022 Refill [facility] #2 [place] [address] Damaso Vazquez MD #[address] [place] [address] Medication Refill Social History Tobacco Use Types [...] 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 No / Unsure 06/30/2022 9:16 AM CDT documented as of this encounter Miscellaneous Notes * Telephone Encounter - Winifred Contreras RN - 07/06/2022 11:14 AM CDT Medication failed the protocol, provider to review and approve the medication order if appropriate. Requested Prescriptions Pending Prescriptions Disp Refills ondansetron (ZOFRAN) 4 MG Tablet [Pharmacy Med Name: ONDANSETRON 4MG TABLET] 60 Tablet 1 Sig: Take 1 Tablet by mouth every 8 hours as needed for Nausea - 1st line. Not Delegated - 5-HT3 Antagonists Protocol Failed - 07/06/2022 8:55 AM Failed - This refill cannot be delegated Passed - Visit with relevant provider in past 12 months or upcoming 90 days Recent Visits Date Type Provider Dept 06/27/22 Office Visit Cheryl Blackwell APRN, STEPHANIE [facility] 04/04/22 Office Visit [facility] 03/21/22 Office Visit Damaso Vazquez MD [facility] Showing recent visits within past 365 days and meeting all other requirements Future Appointments Date Type Provider Dept 09/26/22 Appointment Damaso Vazquez MD [facility] Showing future appointments within next 90 days and meeting all other requirements documented in this encounter Plan of Treatment Upcoming Encounters Date Type Department Care Team (Latest Contact Info) Description 03/03/2025 10:00 AM SUPERVISOR GAS METER REPAIR Office Visit [facility] - Orthopedic Surgery - [place] #2 [place] [address] Homer Alcala MD #[address] [address] Ann Graham MD #[address] [address] 03/04/2025 2:00 PM SUPERVISOR GAS METER REPAIR Office Visit [facility] Cardiology - [place] #2 [place] [address] Homer Alcala MD #[address] [address] Carolin Sykes APRN, DESK ASSISTANT [address] [address] 03/19/2025 10:15 AM SUPERVISOR GAS METER REPAIR Physical Therapy [facility] at [facility] [address] [address] Sujata Winn, CONFERENCE MANAGER, DESK ASSISTANT [address] [place] [address] Michelle Patel, PT [place] Discharge Disposition: Discharged to home or Selfcare 03/21/2025 1:30 PM SUPERVISOR GAS METER REPAIR Office Visit [facility] Neurology [facility] #2 [place] [address] Ayala Weaver APRN, CATERING TRUCK OPERATOR #2 [place] [address] 04/29/2025 9:00 AM SUPERVISOR GAS METER REPAIR Office Visit [facility] Neurology - [place] #2 [place] [address] Ayala Weaver APRN, CATERING TRUCK OPERATOR #2 [place] [address] 05/09/2025 11:00 AM SUPERVISOR GAS METER REPAIR Office Visit [facility] Pulmonology & Sleep Medicine [facility] #2 [place] [address] Saurav Goyal MD #2 [place] [address] documented as of this encounter Goals Goal Patient Goal Type Associated Problems Recent Progress Patient-Stated? Author Depression Behavioral Health On track(2024 4:40 PM CDT) Flora Miller, PNEUMATIC TOOL OPERATOR Note: GOAL: Lisseth will manage depressive [...] 04/05/2024 04/05/2024 04/05/2024 12:3 5 PM SUPERVISOR GAS METER REPAIR COVID - 19 05/19/2024 05/19/2024 05/19/2024 6:18 PM CDT Assessment Noted Time PHQ-9 Depression Total Score: 1 01/12/20 19 5:00 PM SUPERVISOR GAS METER REPAIR documented as of this encounter Care Teams Sheet Metal Worker Supervisor Relationship Specialty Start Date End Date Damaso Vazquez MD PCP - General Family Medicine 05/28/20 08/31/23 Homer Alcala MD #[address] [address] PCP - General Family Medicine 09/01/23 Yuliana Florez APN Advanced Practice Nurse 01/24/18 Michel Yanez, CONFERENCE MANAGER, DESK ASSISTANT #2 [place] [address] Nurse Practitioner Advanced Practice Nurse 12/28/21 Laureano Quigley MD #[address] [facility], [facility] [address] [place] [address] Consulting Physician Urology 02/04/22 Elsa Kenny, CONFERENCE MANAGER, DESK ASSISTANT #2 [facility], [facility] [address] [place] [address] Nurse Practitioner Cardiology 07/14/23 09/17/24 Saurav Goyal MD #2 [place] [address] Consulting Physician Pulmonary Disease 07/28/23 Yuni Meneses, [facility] Presentation Designer Pattern Grader 11/27/23 12/04/23 Ayala Weaver, CONFERENCE MANAGER, CATERING TRUCK OPERATOR #2 [place] [address] Nurse Practitioner Neurology 12/18/23 documented as of this encounter
--- OUTSIDE RECORDS SUMMARY | 2025-02-22 12:14 | XMS_ITS | Encounter Summary ---
Author Organization [facility] Address [address] [place] [address] Phone Care Team Providers Care Print Project Manager Name Role Phone Yuliana Florez APN Unavailable Unavailab Damaso Chaudhari MD Primary Care Provider [phone] Michel Yanez APRN, WINDING MACHINE OPERATOR Unavailable [phone] aLureano Quigley MD Unavailable [phone] Elsa Kenny APRN, WINDING MACHINE OPERATOR Unavailable + [phone] Saurav Goyal MD Unavailable Homer Alcala MD Primary Care Provider [phone] Yuni Meneses SPEED OPERATOR Unavailable Unavailab Ayala Orozco APRN, BICYCLE SERVICE TECHNICIAN Unavailable + [phone] Reason for Visit * Reason Comments Medication Refill Encounter Details Date Type Department Care Team (Late st Contact Info) Description 06/02/2022 Refill [facility] - Family Medicine - [place] #2 [place] [address] Damaso Vazquez MD #[address] [place] [address] Medication Refill Social History Tobacco Use Types [...] Telephone Encounter - Darline Seth RN - 06/02/2022 2:18 PM CDT Medication failed the protocol, provider to review and approve the medication order if appropriate. Requested Prescriptions Pending Prescriptions Disp Refills buPROPion (WELLBUTRIN) 300 MG TABLET SR 24 HR XL tablet [Pharmacy Med Name: BuPROPion XL 300MG EXTENDED RELEASE TABLET] 30 Tablet 2 Sig: TAKE 1 TABLET BY MOUTH EVERY MORNING Bupropion (6 Month Refill Only) Protocol Failed - 06/02/2022 2:12 PM Failed - Has an encounter in the past 6 months with a depression or anxiety visit diagnosis Passed - Visit with relevant provider in past 6 months or upcoming 90 days Recent Visits Date Type Provider Dept 04/04/22 Office Visit Damaso Vazquez MD [facility] [place] 03/21/22 Office Visit Damaso Vazquez MD [facility] [...] (Latest Contact Info) Description 03/03/2025 10:00 AM EXPERIMENTAL OUTBOARD MOTORS MECHANIC Office Visit [facility] - Orthopedic Surgery - [place] #2 [place] [address] Homer Alcala MD #2 [facility] [address] [place] [address] Ann Graham MD #[address] [address] 03/04/2025 2:00 PM EXPERIMENTAL OUTBOARD MOTORS MECHANIC Office Visit [facility] - Cardiology - [place] #2 [place] [address] Homer Alcala MD #2 [facility] [address] [place] [address] Carolin Sykes APRN, WINDING MACHINE OPERATOR 2 [facility] [address] [place] [address] 03/19/2025 10:15 AM EXPERIMENTAL OUTBOARD MOTORS MECHANIC Physical [facility] 200 [facility] H1 [place] [address] Sujata Winn, SWITCHBOARD TROUBLESHOOTER, WINDING MACHINE OPERATOR [address] [place] [address] Michelle Patel, PT [place] Discharge Disposition: Discharged to home or Selfcare 03/21/2025 1:30 PM EXPERIMENTAL OUTBOARD MOTORS MECHANIC Office Visit [facility] Neurology - [place] #2 [facility] [place] [address] Ayala Weaver, SWITCHBOARD TROUBLESHOOTER, BICYCLE SERVICE TECHNICIAN #2 [place] [address] 04/29/2025 9:00 AM EXPERIMENTAL OUTBOARD MOTORS MECHANIC Office Visit [facility] Neurology - [place] #2 [facility] [place] [address] Ayala Weaver, SWITCHBOARD TROUBLESHOOTER, BICYCLE SERVICE TECHNICIAN #2 [place] [address] 05/09/2025 11:00 AM EXPERIMENTAL OUTBOARD MOTORS MECHANIC Office Visit [facility] Pulmonology & Sleep Medicine - [place] #2 [facility] [place] [address] Saurav Goyal MD #2 [place] [address] documented as of this encounter Goals Goal [...] 4:40 PM CDT) No Varble, Flora A, RESIDENTIAL FIELD MANAGER Note: GOAL: Lisseth will process feelings of [...] 19 04/05/2024 04/05/2024 04/05/2024 12:3 5 PM EXPERIMENTAL OUTBOARD MOTORS MECHANIC COVID - 19 05/19/2024 05/19/2024 05/19/2024 6:18 PM CDT Assessment Noted Time PHQ-9 Depression Total Score: 1 01/12/20 19 5:00 PM EXPERIMENTAL OUTBOARD MOTORS MECHANIC documented as of this encounter Care Teams Print Project Manager Relationship Specialty Start Date End Date Damaso Vazquez MD PCP - General Family Medicine 05/28/20 08/31/23 Homer Alcala MD #[address] [address] PCP - General Family Medicine 09/01/23 Yuliana Florez APN Advanced Practice Nurse 01/24/18 Michel Yanez APRN, WINDING MACHINE OPERATOR #2 [place] [address] Nurse Practitioner Advanced Practice Nurse 12/28/21 Laureano Quigley MD #[address] [place] [place] [address] Consulting Physician Urology 02/04/22 Elsa Kenny, SWITCHBOARD TROUBLESHOOTER, WINDING MACHINE OPERATOR #2 [facility] [address] [place], [address] [place] [address] Nurse Practitioner Cardiology 07/14/23 09/17/24 Saurav Goyal MD #2 [place] [address] Consulting Physician Pulmonary Disease 07/28/23 Yuni Meneses, [facility] Venetian Blind Washer Stone Cleaner 11/27/23 12/04/23 Ayala Weaver, SWITCHBOARD TROUBLESHOOTER, BICYCLE SERVICE TECHNICIAN #[address] [place] [address] Nurse Practitioner Neurology 12/18/23 documented as of this encounter
--- OUTSIDE RECORDS SUMMARY | 2025-02-22 12:14 | XMS_ITS | Encounter Summary ---
Author Organization [facility] Address [address] [place] [address] Phone Care Team Providers Care Salesperson Women'S Hats Name Role Phone Yuliana Florez APN Unavailable Unavailab Damaso Chaudhari MD Primary Care Provider Michel Yanez APRN, INSURANCE CLAIMS CLERK Unavailable [phone] Laureano Quigley MD Unavailable [phone] Elsa eKnny APRN, INSURANCE CLAIMS CLERK Unavailable + [phone] Saurav Goyal MD Unavailable Homer Alcala MD Primary Care Provider [phone] Yuni Meneses JUVENILE DETENTION OFFICER Unavailable Unavailab Ayala Orozco APRN, RETAIL ADVISOR Unavailable + [phone] Reason for Visit * Reason Comments Medication Refill Encounter Details Date Type Department Care Team (Late st Contact Info) Description 02/09/2022 Refill [facility] - Family Medicine [facility] #2 [place] [phone] Damaso Vazquez MD [address] [place] [address] Medication Refill Social History Tobacco Use Types [...] Coronavirus/COVID-19? No / Unsure 02/04/2022 11:14 AM TRANSACTION PROCESSOR documented as of this encounter Miscellaneous Notes * Telephone Encounter - Dorene Woo RN - 02/09/2022 9:18 AM CST Medication failed the protocol, provider to review and approve the medication order if appropriate. Requested Prescriptions Pending Prescriptions Disp Refills Desvenlafaxine Succinate 100 MG TABLET SR 24 HR [Pharmacy Med Name: DESVENLAFAXINE 100MG EXTENDED RELEASE TABLET] 30 Tablet 2 Sig: TAKE 1 TABLET BY MOUTH EVERY DAY SNRI (6 Month Refill Only) Protocol Failed - 02/09/2022 8:15 AM Failed - Visit with relevant provider [...] Reuptake Inhibitors for at least 6 months buPROPion (WELLBUTRIN) 300 MG TABLET SR 24 HR XL tablet [Pharmacy Med Name: BuPROPion XL 300MG EXTENDED RELEASE TABLET] 30 Tablet 3 Sig: TAKE 1 TABLET BY MOUTH EVERY MORNING Bupropion (6 Month Refill Only) Protocol Failed - 02/09/2022 8:15 AM Failed - Visit with relevant provider [...] with Bupropion for at least 6 months amLODIPine (NORVASC) 5 MG Tablet [Pharmacy Med Name: amLODIPine BESYLATE 5MG TABLET] 30 Tablet 0 Sig: TAKE 1 TABLET BY MOUTH DAILY Calcium-Channel Blockers Protocol Passed - 02/09/2022 8:15 AM Passed - BP on record in the past year Clinician-entered: BP Readings from Last 3 Encounters: 02/04/22 110/70 12/28/21 90/64 06/11/21 124/66 Patient-entered: No data recorded Passed - Visit with relevant provider in past 12 months or upcoming 90 days Recent Visits Date Type Provider Dept 06/11/21 Office Visit Damaso Vazquez MD [facility] 05/04/21 Office Visit Damaso Vazquez MD [facility] Showing recent visits within past 365 days and meeting all other requirements Future Appointments No visits were found meeting these conditions. Showing future appointments within next 90 days and meeting all other requirements losartan (COZAAR) 50 MG Tablet [Pharmacy Med Name: LOSARTAN POTASSIUM 50MG TABLET] 30 Tablet 3 Sig: TAKE 1 TABLET BY MOUTH DAILY ARB Protocol Failed - 02/09/2022 8:15 AM Failed - Serum potassium on record in past 12 months POTASSIUM Date Value Ref Range Status 06/04/2020 3.8 3.5 - 5.1 mmol/L Final Failed - GFR on record in past 12 months GFR, EST. NONAFRICAN Date Value Ref Range Status 06/04/2020 >60 >=60 Final Passed - BP on record in the past year Clinician-entered: BP Readings from Last 3 Encounters: 02/04/22 110/70 12/28/21 90/64 06/11/21 124/66 Patient-entered: No data recorded Passed - Visit [...] 90 days and meeting all other requirements pantoprazole (PROTONIX) 40 MG Tablet Delayed Response [Pharmacy Med Name: PANTOPRAZOLE SODIUM 40MG DELAYED RELEASE TABLET] 30 Tablet 2 Sig: Take 1 Tablet by mouth daily. Proton Pump Inhibitors Protocol Passed - 02/09/2022 8:15 AM Passed - Visit with relevant provider [...] 24 HR [Pharmacy Med Name: METOPROLOL SUCCINATE 50MG EXTENDED RELEASE TABLET] 30 Tablet 3 Sig: TAKE 1 TABLET BY MOUTH DAILY Beta-Blockers Protocol Passed - 02/09/2022 8:15 AM Passed - BP on record in the past year Clinician-entered: BP Readings from Last 3 Encounters: 02/04/22 110/70 12/28/21 90/64 06/11/21 124/66 Patient-entered: No data recorded Passed - Visit [...] 90 days and meeting all other requirements SACTION PROCESSOR documented in this encounter Plan of Treatment Upcoming Encounters Date Type Department Care Team (Latest Contact Info) Description 03/03/2025 10:00 AM TRANSACTION PROCESSOR Office Visit [facility] - Orthopedic Surgery - [place] [address]2 [place] [address] Homer Alcala MD #2 [facility] [address] [place] [address] Ann Graham MD #[address] [address] 03/04/2025 2:00 PM TRANSACTION PROCESSOR Office Visit [facility] Cardiology [facility] #2 [place] [address] Homer Alcala MD #[address] [address] Carolin Sykes APRN, INSURANCE CLAIMS CLERK [address] [address] 03/19/2025 10:15 AM TRANSACTION PROCESSOR [facility] [address] [facility] [address] [place] [address] Sujata Winn APRN, INSURANCE CLAIMS CLERK [address] [place] [address] Michelle Patel, PT [place] Discharge Disposition: Discharged to home or Selfcare 03/21/2025 1:30 PM TRANSACTION PROCESSOR [facility] #2 [place] [address] Ayala Weaver APRN, RETAIL ADVISOR #2 [place] [address] 04/29/2025 9:00 AM TRANSACTION PROCESSOR Office Visit [facility] - Neurology - [place] #2 [facility] [place] [place] [address] Ayala Weaver APRN, RETAIL ADVISOR #2 [place] [address] 05/09/2025 11:00 AM TRANSACTION PROCESSOR Office Visit [facility] - Pulmonology & Sleep Medicine - [place] #2 [facility] [place] [place] [address] Saurav Goyal MD #2 [place] [address] documented as of this encounter Goals Goal Patient Goal Type Associated Problems Recent Progress Patient-Stated? Author Depression Behavioral Health On track(2024 4:40 PM CDT) No Flora Yip LCSW Note: GOAL: Lisseth will manage depressive symptoms more effectively. Goal Reviewed with: patient today Readiness to change: Ready to change Department associated with goal: [facility] Steps [...] Ready to change Department associated with goal: [facility] Steps [...] - 04/05/2024 04/05/2024 04/05/2024 12:3 5 PM TRANSACTION PROCESSOR COVID - 05/19/2024 05/19/2024 05/19/2024 6:18 PM CDT Assessment Noted Time PHQ-9 Depression Total Score: 1 01/12/20 19 5:00 PM TRANSACTION PROCESSOR documented as of this encounter Care Teams Salesperson Women'S Hats Relationship Specialty Start Date End Date Damaso Vazquez MD PCP - General Family Medicine 05/28/20 08/31/23 Homer Alcala MD #2 [facility] [address] [place] [address] PCP - General Family Medicine 09/01/23 Yuliana Florez BACKEND DEVELOPER Advanced Practice Nurse 01/24/18 Michel Yanez APRN, INSURANCE CLAIMS CLERK #2 [place] [address] Nurse Practitioner Advanced Practice Nurse 12/28/21 Laureano Quigley MD #2 [facility] [address] [place] [address] Consulting Physician Urology 02/04/22 Elsa Kenny APRN, INSURANCE CLAIMS CLERK #2 [facility] [place] [address] [address] Nurse Practitioner Cardiology 07/14/23 09/17/24 Saurav Goyal MD #[address] [place] [address] Consulting Physician Pulmonary Disease 07/28/23 Yuni Meneses, JUVENILE DETENTION OFFICER [place] Marina Manager Sales Merchandising Specialist 11/27/23 12/04/23 Ayala Weaver APRN, RETAIL ADVISOR #[address] [place] [address] Nurse Practitioner Neurology 12/18/23 documented as of this encounter
--- OUTSIDE RECORDS SUMMARY | 2025-02-22 12:14 | XMS_ITS | Encounter Summary ---
Author Organization [facility] Address [address] [place] [address] Phone Care Team Providers Care Consultant Teacher Name Role Phone Yuliana Florez APN Unavailable Unavailab Damaso Chaudhari MD Primary Care Provider Michel Yanez APRN, RN LIAISON Unavailable [phone] Laureano Quigley MD Unavailable [phone] Elsa Kenny APRN, RN LIAISON Unavailable + [phone] Saurav Goyal MD Unavailable Homer Alcala MD Primary Care Provider [phone] Yuni Meneses PIPE ORGAN MECHANIC APPRENTICE Unavailable Unavailab Ayala Orozco APRN, BRAZER PRODUCTION LINE Unavailable + [phone] Reason for Visit * Reason Comments Medication Refill Encounter Details Date Type Department Care Team (Late st Contact Info) Description 07/31/2021 Refill [facility] [place] [address] Damaso Vazquez MD [address] [place] [address] Medication Refill Social History Tobacco Use Types [...] 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 No / Unsure 07/07/2021 2:27 PM CDT documented as of this encounter Miscellaneous Notes * Telephone Encounter - Lisseth Haji RN - 08/03/2021 9:21 AM CDT duplicate * Telephone Encounter - Lisseth Haji RN - 08/03/2021 9:20 AM CDT Medication failed the protocol, provider to review and approve the medication order if appropriate. PDMP reviewed. Last UDS 01/2020 Requested Prescriptions Pending Prescriptions Disp Refills amphetamine-dextroamphetamine (ADDERALL) 20 MG Tablet [Pharmacy Med Name: AMPHETAMINE/DEXTROAMPHETAMINE 20MG TABLET] 30 Tablet 0 Sig: TAKE ONE TAB BY MOUTH EVERY DAY AT NOON Not Delegated - Off Protocol Failed - 08/03/2021 9:20 AM Failed - This refill cannot [...] Provider Dept 10/15/21 Appointment Damaso Vazquez MD [facility] Showing future appointments within next 90 days and meeting all other requirements amphetamine-dextroamphetamine (ADDERALL XR) 20 MG CAPSULE SR 24 HR [Pharmacy Med Name: AMPHETAMINE/DEXTROAMPHETAMINE 20MG ER CAPSULE ER 24HR] 60 Capsule 0 Sig: TAKE TWO (2) CAPSULES BY MOUTH EVERY MORNING. Not Delegated - Off Protocol Failed - 08/03/2021 9:20 AM Failed - This refill cannot [...] Provider Dept 10/15/21 Appointment Damaso Vazquez MD [facility] Showing future appointments within next 90 days and meeting all other requirements documented in this encounter Plan of Treatment Upcoming Encounters Date Type Department Care Team (Latest Contact Info) Description 03/03/2025 10:00 AM EXTRUDING PRESS OPERATOR Office Visit [facility] - Orthopedic Surgery - [place] [address]2 [place] [address] Homer Alcala MD #2 [facility] [address] [place] [address] Ann Graham MD #2 [facility] [address] [place] [address] 03/04/2025 2:00 PM EXTRUDING PRESS OPERATOR [facility] [place] #[address] [place] [address] Homer Alcala MD #2 [facility] [address] [place] [address] Carolin Sykes, SPLITTER MACHINE, RN LIAISON [address] [address] 03/19/2025 10:15 AM EXTRUDING PRESS OPERATOR [facility] [address] [facility] [address] [place] [address] Sujata Winn, SPLITTER MACHINE, RN LIAISON [address] [place] [address] Michelle Patel, PT [place] Discharge Disposition: Discharged to home or Selfcare 03/21/2025 1:30 PM EXTRUDING PRESS OPERATOR [facility] [place] #[address] [place] [address] Ayala Weaver, SPLITTER MACHINE, BRAZER PRODUCTION LINE #2 [place] [address] 04/29/2025 9:00 AM EXTRUDING PRESS OPERATOR [facility] [place] [address] [place] [address] Ayala Weaver APRN, BRAZER PRODUCTION LINE #2 [place] [address] 05/09/2025 11:00 AM EXTRUDING PRESS OPERATOR Office Visit [facility] - Pulmonology & Sleep Medicine - [place] #[address] [place] [address] Saurav Goyal MD #2 [place] [address] documented as of this encounter Goals Goal Patient Goal Type Associated Problems Recent Progress Patient-Stated? Author Depression Behavioral Health On track(2024 4:40 PM CDT) No Flora Yip LCSW Note: GOAL: Lisseth will manage depressive symptoms more effectively. Goal Reviewed with: patient today Readiness to change: Ready to change Department associated with goal: [facility] Steps to achieve [...] Ready to change Department associated with goal: [facility] Steps to achieve [...] 19 04/05/2024 04/05/2024 04/05/2024 12:3 5 PM EXTRUDING PRESS OPERATOR COVID - 05/19/2024 05/19/2024 05/19/2024 6:18 PM CDT Assessment Noted Time PHQ-9 Depression Total Score: 1 01/12/20 19 5:00 PM EXTRUDING PRESS OPERATOR documented as of this encounter Care Teams Consultant Teacher Relationship Specialty Start Date End Date Damaso Vazquez MD PCP - General Family Medicine 05/28/20 08/31/23 Homer Alcala MD #2 [facility] [address] [place] [address] PCP - General Family Medicine 09/01/23 Yuliana Florez DIRECTOR OF NATIONAL SALES Advanced Practice Nurse 01/24/18 Michel Yanez APRN, RN LIAISON #2 [place] [address] Nurse Practitioner Advanced Practice Nurse 12/28/21 Laureano Quigley MD #[address] [facility], [facility] [address] [place] [address] Consulting Physician Urology 02/04/22 Elsa Kenny APRN, RN LIAISON #2 [facility], [facility] [address] [place] [address] Nurse Practitioner Cardiology 07/14/23 09/17/24 Saurav Goyal MD #2 [place] [address] Consulting Physician Pulmonary Disease 07/28/23 Yuni Meneses, PIPE ORGAN MECHANIC [facility] Polymerization Oven Tender Construction Lineman 11/27/23 12/04/23 Ayala Weaver, SPLITTER MACHINE, BRAZER PRODUCTION LINE #2 [place] [address] Nurse Practitioner Neurology 12/18/23 documented as of this encounter
--- OUTSIDE RECORDS SUMMARY | 2025-02-22 12:14 | XMS_ITS | Encounter Summary ---
Author Organization [facility] Address [address] [place] [address] Phone Care Team Providers Care Hospital Insurance Clerk Name Role Phone Yuliana Florez APN Unavailable Unavailab Damaso Chaudhari MD Primary Care Provider [phone] Michel Yanez APRN, STOCK ASSOCIATE Unavailable [phone] Laureano Quigley MD Unavailable [phone] Elsa Kenny APRN, STOCK ASSOCIATE Unavailable + [phone] Saurav Goyal MD Unavailable Homer Alcala MD Primary Care Provider [phone] Yuni Meneses POULTRY FIELD SERVICE TECHNICIAN Unavailable Unavailab Ayala Orozco APRN, SPECIALTY DEPARTMENT SUPERVISOR Unavailable + [phone] Reason for Visit * Reason Comments Medication Refill Encounter Details Date Type Department Care Team (Late st Contact Info) Description 09/01/2021 Refill [facility] - Family Medicine - [place] #[address] [place] [address] Damaso Vazquez MD #[address] [place] [address] Medication Refill Social History Tobacco Use Types [...] 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 Requested Prescriptions Pending Prescriptions Disp Refills amphetamine-dextroamphetamine (ADDERALL XR) 20 MG CAPSULE SR 24 HR [Pharmacy Med Name: AMPHETAMINE/DEXTROAMPHETAMINE 20MG ER CAPSULE ER 24HR] 60 Capsule 0 Sig: TAKE TWO (2) CAPSULES BY MOUTH EVERY MORNING. Not Delegated - Off Protocol Failed - 09/01/2021 8:52 AM Failed - This refill cannot be [...] Provider Dept 10/15/21 Appointment Damaso Vazquez MD [facility] Showing future appointments within next 90 days and meeting all other requirements documented in this encounter Plan of Treatment Upcoming Encounters Date Type Department Care Team (Latest Contact Info) Description 03/03/2025 10:00 AM VINYL INSTALLER Office Visit [facility] - Orthopedic Surgery - [place] #2 [place] [address] Homer Alcala MD #2 [facility] [address] [place] [address] Ann Graham MD #[address] [address] 03/04/2025 2:00 PM VINYL INSTALLER Office Visit [facility] - Cardiology - [place] #2 [place] [address] Homer Alcala MD #2 [facility] [address] [place] [address] Carolin Sykes APRN, STOCK ASSOCIATE 2 [facility] [address] [place] [address] 03/19/2025 10:15 AM VINYL INSTALLER Physical Therapy [facility] at [facility] 200 [facility] [address] [place] [address] Sujata Winn, INTENSIVIST, STOCK ASSOCIATE [address] [place] [address] Michelle Patel, PT [place] Discharge Disposition: Discharged to home or Selfcare 03/21/2025 1:30 PM VINYL INSTALLER Office Visit [facility] Neurology - [place] #2 [facility] [place] [address] Ayala Weaver, INTENSIVIST, SPECIALTY DEPARTMENT SUPERVISOR #2 [place] [address] 04/29/2025 9:00 AM VINYL INSTALLER Office Visit [facility] Neurology - [place] #2 [facility] [place] [address] Ayala Weaver, INTENSIVIST, SPECIALTY DEPARTMENT SUPERVISOR #2 [place] [address] 05/09/2025 11:00 AM VINYL INSTALLER Office Visit [facility] Pulmonology & Sleep Medicine - [place] #2 [facility] [place] [address] Saurav Goyal MD #2 [place] [address] documented as of this encounter Goals Goal [...] 4:40 PM CDT) No Varble, Flora A, RN ELIGIBILITY Note: GOAL: Lisseth will process feelings of [...] - 04/05/2024 04/05/2024 04/05/2024 12:3 5 PM VINYL INSTALLER COVID - 05/19/2024 05/19/2024 05/19/2024 6:18 PM CDT Assessment Noted Time PHQ-9 Depression Total Score: 1 01/12/20 19 5:00 PM VINYL INSTALLER documented as of this encounter Care Teams Hospital Insurance Clerk Relationship Specialty Start Date End Date Damaso Vazquez MD PCP - General Family Medicine 05/28/20 08/31/23 Homer Alcala MD #[address] [address] PCP - General Family Medicine 09/01/23 Yuliana Florez APN Advanced Practice Nurse 01/24/18 Michel Yanez APRN, STOCK ASSOCIATE #2 [place] [address] Nurse Practitioner Advanced Practice Nurse 12/28/21 Laureano Quigley MD #2 [facility], [facility] [address] [place] [address] Consulting Physician Urology 02/04/22 Elsa Kenny APRN, STOCK ASSOCIATE #2 [facility], [facility] [address] [place] [address] Nurse Practitioner Cardiology 07/14/23 09/17/24 Saurav Goyal MD #2 [place] [address] Consulting Physician Pulmonary Disease 07/28/23 Yuni Meneses, [facility] Synthetic Filament Extruder Transportation Department Head 11/27/23 12/04/23 Ayala Weaver APRN, SPECIALTY DEPARTMENT SUPERVISOR #2 [place] [address] Nurse Practitioner Neurology 12/18/23 documented as of this encounter
--- OUTSIDE RECORDS SUMMARY | 2025-02-22 12:14 | XMS_ITS | Encounter Summary ---
Author Organization [facility] Address [address] [place] [address] Phone Care Team Providers Care Artificial Teeth Inspector Name Role Phone Yuliana Florez APN Unavailable Unavailab Michel Shepherd MOTOR COACH CHAUFFEUR, ANGLE ROLL OPERATOR Unavailable [phone] Laureano Quigley MD Unavailable [phone] Elsa Kenny MOTOR COACH CHAUFFEUR, ANGLE ROLL OPERATOR Unavailable + [phone] Saurav Goyal MD Unavailable Homer Alcala MD Primary Care Provider [phone] Ayala Weaver MOTOR COACH CHAUFFEUR, FIRER HELPER Unavailable + [phone] Reason for Visit * Reason Comments Medication Refill Encounter Details Date Type Department Care Team (Late st Contact Info) Description 09/11/2024 Refill [facility] [address] [place] [address] Homer Alcala MD #[address] [address] Medication Refill Social History Tobacco Use Types Packs/Day Years Used Date Smoking Tobacco: Former Cigarettes 0 Q uit: 03/13/1988 Smokeless Tobacco: Never Alcohol Use Standard Drinks/Week Comments Not Currently 0 (1 standard drink = 0.6 oz pur e alcohol) seldom [facility] Utilities Answer Date Recorded In the [...] declined 04/16/2024 How often do you attend methodist or rastafari serv ices? 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 Not on file documented as of this encounter Miscellaneous Notes * Telephone Encounter - Darline Seth RN - 09/11/2024 3:18 PM CDT Dose increased documented in this encounter Plan of Treatment Upcoming Encounters Date Type Department Care Team (Latest Contact Info) Description 03/03/2025 10:00 AM SHIPPER/RECEIVER Office Visit [facility] - Orthopedic Surgery - [place] #2 [place] [address] Homer Alcala MD #2 [facility] 205 [place] [address] Ann Graham MD #2 [facility] 305 [place] [address] 03/04/2025 2:00 PM SHIPPER/RECEIVER [facility] [place] #2 [place] [address] Homer Alcala MD #[address] [address] Carolin Sykes APRN, ANGLE ROLL OPERATOR 2 [facility] 305 [place] [address] 03/19/2025 10:15 AM SHIPPER/RECEIVER [facility] 200 [facility], [facility] H1 [place] [address] Sujata Winn, MOTOR COACH CHAUFFEUR, ANGLE ROLL OPERATOR [address] [place] [address] Michelle Patel, PT [place] Discharge Disposition: Discharged to home or Selfcare 03/21/2025 1:30 PM SHIPPER/RECEIVER [facility] [place] #2 [place] [address] Ayala Weaver APRN, FIRER HELPER #2 [facility] [place] [address] 04/29/2025 9:00 AM SHIPPER/RECEIVER Office Visit [facility] Neurology - [place] #2 [place] [address] Ayala Weaver APRN, FIRER HELPER #2 [facility] [address] 05/09/2025 11:00 AM SHIPPER/RECEIVER Office Visit [facility] Pulmonology & Sleep Medicine - [place] #2 [place] [address] Saurav Goyal MD #2 [facility] [place] [address] documented as of this encounter Goals Goal Patient Goal Type Associated Problems Recent Progress Patient-Stated? Author Depression Behavioral Health On track(2024 4:40 PM CDT) No Folra Yip LCSW Note: GOAL: Lisseth will manage depressive symptoms more effectively. Goal Reviewed with: patient today Readiness to change: Ready to change Department associated with goal: [facility] Steps to [...] Ready to change Department associated with goal: [facility] Steps to [...] Ready to change Department associated with goal: [facility] Steps to [...] Ready to change Department associated with goal: [facility] Steps to [...] documented as of this encounter Care Teams Artificial Teeth Inspector Relationship Specialty Start Date End Date Homer Alcala MD #[address] [facility] [facility] [address] [place] [address] PCP - General Family Medicine 09/01/23 Yuliana Florez, ASSEMBLER FLEXIBLE LEADS Advanced Practice Nurse 01/24/18 Michel Yanez, MOTOR COACH CHAUFFEUR, ANGLE ROLL OPERATOR #2 [place] [address] Nurse Practitioner Advanced Practice Nurse 12/28/21 Laureano Quigley MD #[address] [facility] [facility] [address] [place] [address] Consulting Physician Urology 02/04/22 Elsa Kenny, MOTOR COACH CHAUFFEUR, ANGLE ROLL OPERATOR #2 [facility] [address] [place] [address] Nurse Practitioner Cardiology 07/14/23 09/17/24 Saurav Goyal MD #2 [place] [address] Consulting Physician Pulmonary Disease 07/28/23 Ayala Weaver, MOTOR COACH CHAUFFEUR, FIRER HELPER #2 [place] [address] Nurse Practitioner Neurology 12/18/23 documented as of this encounter
--- OUTSIDE RECORDS SUMMARY | 2025-02-22 12:14 | XMS_ITS | Encounter Summary ---
Author Organization [facility] Address [address] [place] [address] Phone Care Team Providers Care Journalism Intern Name Role Phone Yuliana Florez APN Unavailable Unavailab Damaso Chaudhari MD Primary Care Provider [phone] Michel Yanez APRN, RENAL CASE MANAGER Unavailable [phone] Laureano Quigley MD Unavailable [phone] Elsa Kenny APRN, RENAL CASE MANAGER Unavailable + [phone] Saurav Goyal MD Unavailable Homer Alcala MD Primary Care Provider [phone] Yuni Meneses ROLLED HAM LACER Unavailable Unavailab Ayala Orozco APRN, METALIZING SUPERVISOR Unavailable + [phone] Reason for Visit * Reason Comments Medication Refill Encounter Details Date Type Department Care Team (Late st Contact Info) Description 08/03/2021 Refill [facility] - [facility] #2 [place] [address] Damaso Vazquez MD #1 [place] [address] Medication Refill Social History Tobacco Use Types [...] 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 No / Unsure 07/07/2021 2:27 PM CDT documented as of this encounter Miscellaneous Notes * Telephone Encounter - Lisseth Haji RN - 08/03/2021 9:21 AM CDT Medication failed the protocol, provider to review and approve the medication order if appropriate. Requested Prescriptions Pending Prescriptions Disp Refills naproxen (NAPROSYN) 500 MG Tablet [Pharmacy Med Name: NAPROXEN 500MG TABLET] 60 Tablet 0 Sig: TAKE ONE (1) TABLET BY MOUTH TWO (2) TIMES DAILY (WITH MEALS). NSAIDs Protocol Failed - 08/03/2021 9:14 AM Failed - AST less than 55 or ALT less than 90 in past 12 months SGOT (AST) Date Value Ref Range Status 06/04/2020 24 <=32 U/L Final SGPT (ALT) Date Value Ref Range Status 06/04/2020 23 <=41 U/L Final Failed - HGB greater than 10 or HCT greater than 30 in past 12 months HEMOGLOBIN (HGB) Date Value Ref Range Status 06/04/2020 13.2 12.0 - 15.8 g/dL Final HEMATOCRIT (HCT) Date Value Ref Range Status 06/04/2020 40.6 36.0 - 47.0 % Final Passed - Normal serum creatinine in past 12 months CREATININE - POCT Date Value Ref Range Status 09/22/2020 0.9 0.6 - 1.3 mg/dL Final Passed - Visit with relevant provider in past 12 months or upcoming 90 days Recent Visits Date Type Provider Dept 06/11/21 Office Visit Damaso Vazquez MD [facility] 05/04/21 Office Visit Damaso Vazquez MD [facility] 09/16/20 Office Visit Damaso Vazquez MD [facility] 09/01/20 Office Visit [facility] Showing recent visits within past 365 days and meeting all other requirements Future Appointments Date Type Provider Dept 10/15/21 Appointment Damaso Vazquez MD [facility] Showing future appointments within next 90 days and meeting all other requirements Passed - No matching NSAID med order in past 45 days No matching medication orders between 06/19/2021 9:21 AM and 08/03/2021 9:21 AM documented in this encounter Plan of Treatment Upcoming Encounters Date Type Department Care Team (Latest Contact Info) Description 03/03/2025 10:00 AM HUMAN RESOURCES INTERN Office Visit [facility] - Orthopedic Surgery - [place] #2 [place] [address] Homer Alcala MD #2 [facility] 205 [place] [address] Ann Graham MD #2 [facility] 305 [place] [address] 03/04/2025 2:00 PM HUMAN RESOURCES INTERN [facility] [place] #2 [place] [address] Homer Alcala MD #2 [facility] 205 [place] [address] Carolin Sykes, WATERPROOFER HELPER, RENAL CASE MANAGER 2 [facility] 305 [place] [address] 03/19/2025 10:15 AM HUMAN RESOURCES INTERN Physical Therapy [facility] Rehab at [facility] 200 [facility], [facility] H1 [place] [address] Sujata Winn, WATERPROOFER HELPER, RENAL CASE MANAGER 220 [place] [address] Michelle Patel, PT [place] Discharge Disposition: Discharged to home or Selfcare 03/21/2025 1:30 PM HUMAN RESOURCES INTERN [facility] [place] #2 [place] [address] Ayala Weaver, WATERPROOFER HELPER, METALIZING SUPERVISOR #2 [place] [address] 04/29/2025 9:00 AM HUMAN RESOURCES INTERN [facility] [place] #2 [place] [address] Ayala Weaver, WATERPROOFER HELPER, METALIZING SUPERVISOR #2 [place] [address] 05/09/2025 11:00 AM HUMAN RESOURCES INTERN [facility] - [place] #2 [place] [address] Saurav Goyal MD #2 [place] [address] documented as of this encounter Goals Goal Patient Goal Type Associated Problems Recent Progress Patient-Stated? Author Depression Behavioral Health On track(2024 4:40 PM CDT) Flora Miller LCSW Note: GOAL: Lisseth will manage depressive symptoms more effectively. Goal Reviewed with: patient today Readiness to change: Ready to change Department associated with goal: [facility] Steps to achieve [...] Ready to change Department associated with goal: [facility] Steps to achieve [...] Visit Diagnoses Diagnosis Right shoulder pain, unspecified chronicity Fibromyalgia Mylagia and myositis, unspecified documented in this encounter Additional Health Concerns Infection Onset Date Last Indicated Resolved Time COVID - 19 10/08/2023 10/08/2023 10/08/2023 11:4 0 AM CDT COVID - 19 04/05/2024 04/05/2024 04/05/2024 12:3 5 PM HUMAN RESOURCES INTERN COVID - 19 05/19/2024 05/19/2024 05/19/2024 6:18 PM CDT Assessment Noted Time PHQ-9 Depression Total Score: 1 01/12/20 19 5:00 PM HUMAN RESOURCES INTERN documented as of this encounter Care Teams Journalism Intern Relationship Specialty Start Date End Date Damaso Vazquez MD PCP - General Family Medicine 05/28/20 08/31/23 Homer Alcala MD #2 [facility] 205 [place] [address] PCP - General Family Medicine 09/01/23 Yuliana Florez, SOCIAL SCIENCE RESEARCH ASSISTANT Advanced Practice Nurse 01/24/18 Michel Yanez APRN, RENAL CASE MANAGER #2 [place] [address] Nurse Practitioner Advanced Practice Nurse 12/28/21 Laureano Quigley MD #2 [facility] 300 [place] [address] Consulting Physician Urology 02/04/22 Elsa Kenny APRN, RENAL CASE MANAGER #2 [facility] 305 [place] [address] Nurse Practitioner Cardiology 07/14/23 09/17/24 Saurav Goyal MD #2 [place] [address] Consulting Physician Pulmonary Disease 07/28/23 Yuni Meneses, ROLLED HAM LACER [place] [employer] Buster Improvement Analyst 11/27/23 12/04/23 Ayala Weaver APRN, METALIZING SUPERVISOR #2 [place] [address] Nurse Practitioner Neurology 12/18/23 documented as of this encounter
--- OUTSIDE RECORDS SUMMARY | 2025-02-22 12:14 | XMS_ITS | Encounter Summary ---
Author Organization [facility] Address [address] [place] [address] Phone Care Team Providers Care Securities Counselor Name Role Phone Yuliana Florez APN Unavailable Unavailab Waleska Chaudhari MD Primary Care Provider [phone] Michel Yanez APRN, PROJECTION TECHNICIAN Unavailable [phone] Laureano Quigley MD Unavailable [phone] Elsa Kenny APRN, PROJECTION TECHNICIAN Unavailable + [phone] Saurav Goyal MD Unavailable Homer Alcala MD Primary Care Provider [phone] Yuni Meneses OPTICAL DISPENSER Unavailable Unavailab Ayala Orozco APRN, ARCHITECTURAL WOOD MODEL MAKER Unavailable + [phone] Reason for Visit * Reason Comments Medication Refill Encounter Details Date Type Department Care Team (Late st Contact Info) Description 11/09/2021 Refill [facility] - Family [facility] #[address] [place] [address] Waleska Vazquez MD #[address] [place] [address] Medication Refill Social History Tobacco Use Types [...] 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 Amphetamine-Dextroamphetamine Dispensed Written Strength Quantity Refills Days Supply Provider Pharmacy MIXED AMPHETAMINE SALTS 10/11/2021 10/08/2021 20 MG 60 0 30 , WALESKA VAZQUEZ MD [facility] AMPHETAMINE SALT COMBO 10/08/2021 10/08/2021 20MG 30 0 30 , WALESKA VAZQUEZ MD [facility] MIXED AMPHETAMINE SALTS 09/10/2021 09/02/2021 20 MG 60 0 30 , WALESKA VAZQUEZ MD [facility] AMPHETAMINE SALT COMBO 08/12/2021 08/03/2021 20MG 30 0 30 JYOTSNA SHAWN M MD [facility] Medication failed the protocol, provider to review and approve the medication order if appropriate. Requested Prescriptions Pending Prescriptions Disp Refills amphetamine-dextroamphetamine (ADDERALL XR) 20 MG CAPSULE SR 24 HR [Pharmacy Med Name: AMPHETAMINE/DEXTROAMPHETAMINE 20MG ER CAPSULE ER 24HR] 60 Capsule 0 Sig: TAKE TWO (2) CAPSULES BY MOUTH EVERY MORNING. Not Delegated - Off Protocol Failed - 11/09/2021 8:57 AM Failed - This refill cannot be delegated Passed - Visit with relevant provider in past 12 months or upcoming 90 days Recent Visits Date Type Provider Dept 06/11/21 Office Visit aWleska Vazquez MD [facility] 05/04/21 Office Visit Waleska Vazquez MD [facility] Showing recent visits within past 365 days and meeting all other requirements Future Appointments No visits were found meeting these conditions. Showing future appointments within next 90 days and meeting all other requirements documented in this encounter Plan of Treatment Upcoming Encounters Date Type Department Care Team (Latest Contact Info) Description 03/03/2025 10:00 AM WATER CHASER Office Visit [facility] Medical [facility] - Orthopedic Surgery - [place] #2 [place] [address] Homer Alcala MD #[address] [address] Ann Graham MD #[address] [address] 03/04/2025 2:00 PM WATER CHASER Office Visit [facility] - Cardiology [facility] #2 [place] [address] Homer Alcala MD #[address] [address] Carolin Sykes APRN, PROJECTION TECHNICIAN [address] [address] 03/19/2025 10:15 AM WATER CHASER Physical Therapy [facility] Rehab at [facility] [address] [place] [address] Sujata Winn, ASSOCIATE PROFESSOR OF BIOLOGY, PROJECTION TECHNICIAN [address] [place] [address] Michelle Patel, PT [place] Discharge Disposition: Discharged to home or Selfcare 03/21/2025 1:30 PM WATER CHASER Office Visit [facility] Neurology [facility] #2 [place] [address] Ayala Weaver, ASSOCIATE PROFESSOR OF BIOLOGY, ARCHITECTURAL WOOD MODEL MAKER #2 [place] [address] 04/29/2025 9:00 AM WATER CHASER Office Visit [facility] Neurology [facility] #2 [place] [address] Ayala Weaver, ASSOCIATE PROFESSOR OF BIOLOGY, ARCHITECTURAL WOOD MODEL MAKER #2 [place] [address] 05/09/2025 11:00 AM WATER CHASER Office Visit [facility] - Pulmonology & Sleep Medicine [facility] #2 [place] [address] Saurav Goyal MD #2 [place] [address] documented as of this encounter Goals Goal Patient Goal Type Associated Problems Recent Progress Patient-Stated? Author Depression Behavioral Health On track(2024 4:40 PM CDT) Flora Miller, ORDER CONTROL CLERK BLOOD BANK Note: GOAL: Lisseth will manage depressive symptoms [...] 19 04/05/2024 04/05/2024 04/05/2024 12:3 5 PM WATER CHASER COVID - 19 05/19/2024 05/19/2024 05/19/2024 6:18 PM CDT Assessment Noted Time PHQ-9 Depression Total Score: 1 01/12/20 19 5:00 PM WATER CHASER documented as of this encounter Care Teams Securities Counselor Relationship Specialty Start Date End Date Waleska Vazquez MD PCP - General Family Medicine 05/28/20 08/31/23 Homer Alcala MD #2 [place] [address] PCP - General Family Medicine 09/01/23 Yuliana Florez ADDICTIONS COUNSELOR ASSISTANT Advanced Practice Nurse 01/24/18 Michel Yanez, ASSOCIATE PROFESSOR OF BIOLOGY, PROJECTION TECHNICIAN #2 [place] [address] Nurse Practitioner Advanced Practice Nurse 12/28/21 Laureano Quigley MD #2 [address] [facility], [facility] [address] [place] [address] Consulting Physician Urology 02/04/22 Elsa Kenny, ASSOCIATE PROFESSOR OF BIOLOGY, PROJECTION TECHNICIAN #2 [facility] [facility], [facility] [address] [place] [address] Nurse Practitioner Cardiology 07/14/23 09/17/24 Saurav Goyal MD #2 [place] [address] Consulting Physician Pulmonary Disease 07/28/23 Yuni Meneses, [facility] Refining Machine Operator Program Therapist 11/27/23 12/04/23 Ayala Weaver, ASSOCIATE PROFESSOR OF BIOLOGY, ARCHITECTURAL WOOD MODEL MAKER #2 [place] [address] Nurse Practitioner Neurology 12/18/23 documented as of this encounter
--- OUTSIDE RECORDS SUMMARY | 2025-02-22 12:14 | XMS_ITS | Encounter Summary ---
Author Organization [facility] Address [address] [place] [address] Phone Care Team Providers Care Mineralogy Professor Name Role Phone Yuliana Florez APN Unavailable Unavailab Damaso Chaudhari MD Primary Care Provider [phone] Michel Yanez APRN, CABINET MAKER Unavailable [phone] Laureano Quigley MD Unavailable [phone] Elsa Kenny APRN, CABINET MAKER Unavailable + [phone] Saurav Goyal MD Unavailable Homer Alcala MD Primary Care Provider [phone] Yuni Meneses HEATING AND VENTILATING TENDER Unavailable Unavailab Ayala Orozco APRN, COARSE WIRE DRAWER Unavailable + [phone] Reason for Visit * Reason Comments Medication Refill Encounter Details Date Type Department Care Team (Late st Contact Info) Description 08/31/2021 [facility]ill [facility] [address] [place] [phone] Damaso Vazquez MD [address] [place] [address] Medication Refill Social History Tobacco Use Types [...] 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 Requested Prescriptions Pending Prescriptions Disp Refills naproxen (NAPROSYN) 500 MG Tablet [Pharmacy Med Name: NAPROXEN 500MG TABLET] 60 Tablet 0 Sig: TAKE ONE (1) TABLET BY MOUTH TWO (2) TIMES DAILY (WITH MEALS). NSAIDs Protocol Failed - 08/31/2021 9:04 AM Failed - No matching NSAID med order in past 45 days Matching medication order placed on 08/03/2021 7:40 PM Order [id number]: naproxen (NAPROSYN) 500 MG Tablet (For orders placed between 07/18/2021 9:35 AM and 09/01/2021 9:35 AM) Failed - AST less than 55 or [...] [place] 09/01/20 Office Visit Damaso [facility] [place] Showing recent visits within past 365 days and meeting all other requirements Future Appointments Date Type Provider Dept 10/15/21 Appointment Damaso Vazquez MD [facility] Showing future appointments within next 90 days and meeting all other requirements documented in this encounter Plan of Treatment Upcoming Encounters Date Type Department Care Team (Latest Contact Info) Description 03/03/2025 10:00 AM ACOUSTICS TEACHER Office Visit [facility] - Orthopedic Surgery - [place] [address] [place] [address] Homer Alcala MD [address]2 [facility] [address] [place] [address] Ann Graham MD [address] [place] [facility] [address] [place] [address] 03/04/2025 2:00 PM ACOUSTICS TEACHER Office Visit [facility] - Cardiology - [place] [address] [place] [address] Homer Alcala MD [address]2 [facility] [address] [place] [address] Carolin Sykes, VOICE STUDIES DIRECTOR, CABINET MAKER 2 [facility] [address] [place] [address] 03/19/2025 10:15 AM ACOUSTICS TEACHER [facility] [address], [facility] [address] [place] [phone] Sujata Winn, VOICE STUDIES DIRECTOR, CABINET MAKER [address] [place] [address] Michelle Patel, [place] Discharge Disposition: Discharged to home or Selfcare 03/21/2025 1:30 PM ACOUSTICS TEACHER [facility] [place] [address] [place] [address] Ayala Weaver VOICE STUDIES DIRECTOR, COARSE WIRE DRAWER [address] [place] [address] 04/29/2025 9:00 AM ACOUSTICS TEACHER [facility] [place] [address] [place] [address] Ayala Weaver VOICE STUDIES DIRECTOR, COARSE WIRE DRAWER [address] [place] [address] 05/09/2025 11:00 AM ACOUSTICS TEACHER Office Visit [facility] - Pulmonology & Sleep Medicine - [place] [address] [place] [address] Saurav Goyal MD [address] [place] [address] [phone] (work) documented as of this encounter Goals Goal [...] 19 04/05/2024 04/05/2024 04/05/2024 12:3 5 PM ACOUSTICS TEACHER COVID - 19 05/19/2024 05/19/2024 05/19/2024 6:18 PM CDT Assessment Noted Time PHQ-9 Depression Total Score: 1 01/12/20 19 5:00 PM ACOUSTICS TEACHER documented as of this encounter Care Teams Mineralogy Professor Relationship Specialty Start Date End Date Damaso Vazquez MD PCP - General Family Medicine 05/28/20 08/31/23 Homer Alcala MD #2 [facility] [address] [place] [address] PCP - General Family Medicine 09/01/23 Yuliana Florez, WINCH STRIPPER Advanced Practice Nurse 01/24/18 iMchel Yanez, VOICE STUDIES DIRECTOR, CABINET MAKER [address] [place] [address] Nurse Practitioner Advanced Practice Nurse 12/28/21 Laureano Quigely MD #2 [facility] [address] [place] [address] Consulting Physician Urology 02/04/22 Elsa Kenny, VOICE STUDIES DIRECTOR, CABINET MAKER #2 [facility] [address] [place] [address] Nurse Practitioner Cardiology 07/14/23 09/17/24 Saurav Goyal MD #2 [place] [address] Consulting Physician Pulmonary Disease 07/28/23 Yuni Meneses, HEATING AND VENTILATING TENDER [place] Orthodontic Laboratory Technician Mobile Homes Repairer 11/27/23 12/04/23 Ayala Weaver, VOICE STUDIES DIRECTOR, COARSE WIRE DRAWER [address] [place] [address] Nurse Practitioner Neurology 12/18/23 documented as of this encounter
--- OUTSIDE RECORDS SUMMARY | 2025-02-22 12:14 | XMS_ITS | Data Portability ---
Author Organization [place] [facility] (11) Address [address] [facility] [address] [place] [address] Care Team Providers Care Insurance Loss Assessor Name Role Phone SHIRLEY JENNINGS Referring Provider SHIRLEY JENNINGS OTHER [employer] OTHER Assessment Encounter Date Assessment Date Assessment LastModified by Organization Details LastModified Time 06/19/2018 06/19/2018 Patient has a severe daytime sleepiness. She had a home sleep study in December 2015 AHI is only 2.2. Her lowest oxygen saturation was 83%. Since his she has severe daytime sleepiness we will do PSG with MSLT. She most likely will need stimulant medication primarily modafinil or armodafinil . I have told her to keep regular sleep schedule and get sufficient sleep. It will be difficult to make an accurate diagnosis because of her medical problems and medications. But she will need something to keep her awake because of the risk of accident. [email or web address] Not available 06/19/2018 12:17:26 Plan of Treatment Reminders Order Date Submit Date Provider Last Modified By Organization Details Last Modified Time Details Appointments None record ed. Lab None record ed. Referral None record ed. Procedures None record ed. Surgeries None record ed. Imaging None record ed. Medication Orders None record ed. Patient TargetsNo targets recorded. Patient InstructionsNo instructions recorded. Reason for Referral None Reported. Problems Name Problem SNOMED Code Status Onset Date Resolution Date Notes Provider Name and Address Organization Details Recorded Time Hypersomnia 31711471 Active 019 SARAH BEE MD, DABSM, F.C.C.P. NPI [id number] [address] [facility] [address], [place], [address], [place] - CSI/KVH/SMSC 9 11:39:46 Obstructive sleep apnea syndrome 56120004 Active 019 SARAH BEE MD, Anette HAYESC.C.P. NPI [id number] 8 [address] [facility], [place], [address], [place] CSI/KVH/SMSC 9 11:40:02 Problem Notes None recorded. Procedures Surgical History Date Name Laterality Status Provider Name and Address Organization Details Recorded Time [address] [place] [address], [address], [place] - CSI/KVH/SMSC 06/27/2018 18:31:08 [address] [place] [address], [address], [place] CSI/KVH/SMSC 06/27/2018 14:06:[address] logan [address] [place] [address] [place] [address], [address], [place] CSI/KVH/SMSC 01/08/2016 15:33:42 fundoplication completed SARAH Olsen MD, Sabra HAYESC.P. [address], [address], [place] - CSI/KVH/SMSC 06/19/2018 11:41:31 Back Surgery completed SARAH BEE MD, Jose HAYES.C.P. [address] [facility], [place], [address], [place] CSI/KVH/SMSC 06/19/2018 11:41:51 Hysterectomy completed SARAH BEE MD, Jose HAYES.C.P. [address] [facility], [place], [address], [place] CSI/KVH/[facility] 06/19/2018 11:42:06 Imaging Results None recorded. Procedure Notes None recorded. Medical Equipment None Reported. Allergies Allergen ID Allergen Name Allergen Category Reaction Reaction Severity Criticality Documentation Date Start Date Code Code System Note Provider Name and Address Organization Details Recorded Time 8973 tetracycl ine medicatio n Not available Not available Not available 06/19/2018 [id number] Lee BEE MD, FREDDY F.C.C.P. NPI [id number], [address], [facility] 9 11:33:55 8974 Levaquin medicatio n Not available Not available Not available 06/19/2018 [id number] 2 Lee BEE MD, FREDDY F.C.C.P. NPI [id number] 8 [facility] [address], [address], [facility] 9 11:34:08 Medications Name Sig Start Date Stop Date Status Note LastModified by Organization Details LastModified Time losartan 50 mg tablet active Not Available Not Available No t Available cyclobenzapr ine 10 mg tablet active Not Available Not Available Not Available clotrimazole 10 mg teresita 06/19 completed Not Available Not Available Not Available levothyroxin e 175 mcg tablet 06/19 completed Not Available Not Available Not Available levothyroxin e 137 mcg tablet 06/19 completed Not Available Not Available Not Available prednisone 10 mg tablet 06/19 completed Not Available Not Available Not Available fluconazole 150 mg tablet 06/19 completed Not Available Not Available Not Available benzonatate 200 mg capsule 06/19 completed Not Available Not Available Not Available metoprolol succinate ER 50 mg tablet,exten ded release 24 hr active Not Available Not Available Not Available valacyclovir 1 gram tablet 06/19 completed Not Available Not Available Not Available ranitidine 300 mg tablet 06/19 completed Not Available Not Available Not Available hydrocodone 5 mg-acetamino phen 325 mg tablet active Not Available Not Available Not Available meloxicam 15 mg tablet active Not Available Not Available No t Available lisinopril 20 mg tablet active Not Available Not Available Not Available prednisone 20 mg tablet 06/19 completed Not Available Not Available Not Available amlodipine 5 mg tablet 06/19 completed Not Available Not Available Not Available sulfamethoxa zole 800 mg-trimethop rim 160 mg tablet 06/19 completed Not Available Not Available Not Available alprazolam 0.5 mg tablet 06/19 completed Not Available Not Available Not Available alprazolam 0.25 mg tablet active Not Available Not Available Not Available pantoprazole 40 mg tablet,delay ed release active Not Available Not Available N ot Available levothyroxin e 150 mcg tablet 06/19 completed Not Available Not Available Not Available metoprolol succinate ER 25 mg tablet,exten ded release 24 hr 06/19 completed Not Available Not Available Not Available levofloxacin 500 mg tablet 06/19 completed Not Available Not Available Not Available levothyroxin e 112 mcg tablet active Not Available Not Available Not Available amoxicillin 875 mg-potassium clavulanate 125 mg tablet 06/19 completed Not Available Not Available Not Available nabumetone 500 mg tablet active Not Available Not Available Not Available escitalopram 20 mg tablet 06/19 completed Not Available Not Available Not Available bupropion HCl XL 150 mg 24 hr tablet, extended release active Not Available Not Available Not Available Zylet 0.3 %-0.5 % eye drops,suspen gaurang active Not Available Not Available Not Available Lyrica 200 mg capsule active Not Available Not Available N ot Available ProAir HFA 90 mcg/actuatio n aerosol inhaler active Not Available Not Available Not Available Symbicort 160 mcg-4.5 mcg/actuatio n HFA aerosol inhaler 06/19 completed Not Available Not Available Not Available Pristiq 50 mg tablet,exten ded release active Not Available Not Available Not Available desvenlafaxi ne succinate ER 100 mg tablet,exten ded release 24 hr active Not Available Not Available Not Available Nuvigil 150 mg tablet Take 1 tablet in the morning active Not Available Not Available No t Available Vitals Date Recorded Body height Body mass index (BMI) Body weight Oxygen saturation Heart rate Respiratory rate Systolic And Diastolic Provider Name and Address Organization Details Last Updated DateTime 9 162.56 cm 30.9 kg/m2 12009.6 3 g 98 % 55 /min 16 /min 110/80 mm[Hg] KORGI ROHIT, MD, FREDDY F.C.C.P. NPI [id number] 8 [address] [facility], [place], [address], [facility] CSI/KV/SMS 9 12:12:28 Date Recorded Body height Body mass index (BMI) Body weight Provider Name and Address Organization Details Last Updated DateTime 06/22/2018 162.56 cm 30.9 kg/m2 15181.63 g Monet Bailey [facility]/KV/[facility] 06/22/2018 08:59:25 Date Recorded Body height Body mass index (BMI) Body weight Oxygen saturation Heart rate Respiratory rate Systolic And Diastolic Provider Name and Address Organization Details Last Updated DateTime 9 162.56 cm 30.9 kg/m2 85965.6 3 g 98 % 55 /min 16 /min 110/80 mm[Hg] SARAH BEE MD, FREDDY F.C.C.P. NPI [id number] 8 [facility] [address], [address], [facility] CSI/KV/SMSC 9 14:37:12 Date Recorded Body height Body weight Body mass index (BMI) Provider Name and Address Organization Details Last Updated DateTime 12/11/2015 162.56 cm 39046.3 g 29.4 kg/m2 Shan Sultana [facility]/KV/[facility] 12/11/2015 13:07:48 Social History Question Answer Notes LastModified by Organizat ion Details LastModified Time Tobacco Smoking Status Former Smoker SARAH BEE MD, FREDDY, F.C.C.P. [facility] [address], [address] [place], [place] [address]I/KV/SMS 06/19/2018 11:40:26 What Is Your Level Of Caffeine Consumption? Moderate Information not available 06/19/2018 Marital Status Single Informatio n not available 06/19/2018 What Was The Date Of Your Most Recent Tobacco Screening? 07/09/2018 Information not available 09/26/2018 Sex: Unknown Functional Status Question Answer Note LastModified by Organization D etails LastModified Time What is your level of alcohol consumption? None Information not available 06/19/2018 Mental Status None recorded. Family History Nothing Reported. Medical History Condition Response Thyroid Disease Y Anxiety Y Hypertension Y Depression Y Gynecological HistoryNo gynecological history recorded. Obstetrics History GPAL:G 0 P 0 0 0 0 Past Encounters Encounter ID Performer Location Encounter Start Date Encounter Closed Date Diagnosis/Indication Diagnosis SNOMED-CT Code Diagnosis ICD10 Code Diagnosis IMO Codes Diagnosis Note [id number] [employer], [facility] (11) [address] [address] [address] 12/11/2015 12:30:30 12/14/2015 13:19:48 Obstructive sleep apnea of adult 8498357148 103 G47.33 [id number] SARAH BEE MD, FREDDY, F.C.C.P. 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 [facility] (11) [address] [address] 07/09/2018 14:09:38 07/09/2018 16:54:55 Hypersomnia 21648166 G47.10 Idiopathic hypersomni a Idiopathic hypersomnia 3340622803 107 G47.11 Health Concerns Section Related Observation LastModified by Organization Detai ls LastModified Time None Recorded Concern Status LastModified by Organization Details LastModified Time None Recorded Advance Directives Directive None Recorded Payers Insurance Date Sequence Insurance Name Policy Number Policy Singer Covered Member ID Singer Member ID Guarantor Name 07/19/2023 1 [facility] (PPO) [id number] Sorin Gutierrez [id number] Sorin Gutierrez 07/11/2018 2 [place] Sorin Gutierrez [id number] Sorin Gutierrez 07/24/2023 1 [employer]MR [id number] Sorin Gutierrez [id number] Sorin Gutierrez 06/13/2018 1 [place] [id number] Sorin Sommer [id number] Sorin Gutierrez Notes Date Note Type Note Provider Name and Address Organization Details Recorded Time 6 text/html HST SetupReported by PatientEquipment InstructionsFor hst set up, patient reportsdemonstrated to patient how to set up home sleep test device. the patient was able to return demonstration with out difficulty.andthe patient is returning the device the following morning..She is wearing device Monday night. Rd [address] [place] [address], [place], [address], [facility] - I/[facility] 01/08/2016 15:35:00 9 text/html Sleep History-Reported by PatientHPIFor the patient presents with chief complaint of, patient reportssleepinessandsnori ng. For it is stated that, patient reportsshe goes to bed around 9 pmandusually falls asleep within 20 min. For the patient arises in the morning feeling, patient reportsat approximately 4.45 amandunrefreshed. For awakening at night, patient reportsapproximately 0 per/night. For the patient, patient reportsdoes snoreandsnoring is reported to be heavy. For witnessed apneas, gasping for breath, patient reportshave been noted. For the patient is, patient reportscurrently working asandduring the day she is frequently sleepy or fatigued. For the patient reports that, patient reportsshe sometimes nods off off at work and at home. For during quiet activities (e.g. reading, watching tv), patient reportsthe patient nods off,there is no history of napping, and2 naps per week are reported. For during driving, patient reportsand has nodded off while drivingandthere have not been fall asleep accidents. For the epworth sleepiness, patient reportsscore is 20 (normal is less than 10). For the patient, patient reportsdoes not awaken with morning headaches. For there is, patient reportsno awakening with chest pain. For there, patient reportshave been problems with concentration memory difficulties __ __. For symptoms of, patient reportsleg restlessness are not experienced. For the patient reports, patient reportsno history of sleep paralysis hypnagogic hallucinations cataplexy. For restless sleep, patient reportshas been notedandand kicking at night has been noted. For the patient, patient reportsdoes not consume alcohol. For the patient, patient reportsreports that she smoked cigarettes but stopped smoking years ago. For weight, patient reportsis stable. For other medical problems include, patient reportshypertension. For the patient reports that there, patient reportsis not a family history of a sleep disorder.. SARAH BEE MD, DABANDREA, F.C.C.P. [facility] [address], [address], [facility] 06/19/2018 12:17:49 9 text/html Sleep History-Reported by PatientHPIFor the patient presents with chief complaint of, patient reportssleepinessandsnori ng. For it is stated that, patient reportsshe goes to bed around 9 pmandusually falls asleep within 20 min. For the patient arises in the morning feeling, patient reportsat approximately 4.45 amandunrefreshed. For awakening at night, patient reportsapproximately 0 per/night. For the patient, patient reportsdoes snoreandsnoring is reported to be heavy. For witnessed apneas, gasping for breath, patient reportshave been noted. For the patient is, patient reportscurrently working asandduring the day she is frequently sleepy or fatigued. For the patient reports that, patient reportsshe sometimes nods off off at work and at home. For during quiet activities (e.g. reading, watching tv), patient reportsthe patient nods off,there is no history of napping, and2 naps per week are reported. For during driving, patient reportsand has nodded off while drivingandthere have not been fall asleep accidents. For the epworth sleepiness, patient reportsscore is 20 (normal is less than 10). For the patient, patient reportsdoes not awaken with morning headaches. For there is, patient reportsno awakening with chest pain. For there, patient reportshave been problems with concentration memory difficulties __ __. For symptoms of, patient reportsleg restlessness are not experienced. For the patient reports, patient reportsno history of sleep paralysis hypnagogic hallucinations cataplexy. For restless sleep, patient reportshas been notedandand kicking at night has been noted. For the patient, patient reportsdoes not consume alcohol. For the patient, patient reportsreports that she smoked cigarettes but stopped smoking years ago. For weight, patient reportsis stable. For other medical problems include, patient reportshypertension. For the patient reports that there, patient reportsis not a family history of a sleep disorder.. SARAH BEE MD, DAB, F.C.C.P. [address] [address], [place], [address], [facility] - [place]/[facility]/[facility] 07/09/2018 14:46:34 OBGyn Episode No OBEpisode recorded.
--- OUTSIDE RECORDS SUMMARY | 2025-02-22 12:14 | XMS_ITS | Encounter Summary ---
Author Organization [facility] Address [address] [place] [id number] Phone Care Team Providers Care Lockstitch Machine Operator Name Role Phone Yuliana Florez APN Unavailable Unavailab Waleska Chaudhari MD Primary Care Provider [phone] Michel Yanez APRN, MONUMENT STONECUTTER Unavailable [phone] Laureano Quigley MD Unavailable [phone] Elsa Kenny APRN, MONUMENT STONECUTTER Unavailable + [phone] Saurav Goyal MD Unavailable Homer Alcala MD Primary Care Provider [phone] Yuni Meneses LEASE ADMINISTRATION SUPERVISOR Unavailable Unavailab Ayala Orozco APRN, OUTSIDE PLANT CABLE ENGINEER Unavailable + [phone] Reason for Visit * Reason Comments Medication Refill Encounter Details Date Type Department Care Team (Late Contact Info) Description 07/03/2021 Refill [facility] - [facility] [address] [place] [id number] Waleska Vazquez MD [address] [place] [address] Medication Refill Social History Tobacco Use Types [...] 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 No / Unsure 07/03/2021 11:32 AM CDT documented as of this encounter Miscellaneous Notes * Telephone Encounter - Darline Seth RN - 07/05/2021 10:33 AM CDT Dispensed Days Supply Quantity Provider Pharmacy DESVENLAFAXINE ER 100MG ER TAB 07/03/2021 30 30 Tablet [facility] Bet... DESVENLAFAXINE ER 100MG ER TAB 06/07/2021 30 30 Tablet [facility]... DESVENLAFAXINE ER 100MG ER TAB 05/12/2021 30 30 Tablet [facility]... documented in this encounter Plan of Treatment Upcoming Encounters Date Type Department Care Team (Latest Contact Info) Description 03/03/2025 10:00 AM ELECTRONICS PROCESSING SUPERVISOR Office Visit [facility] - Orthopedic Surgery - [place] [address] [place] [address] Homer Alcala MD #[address] [address] Ann Graham MD #[address] [address] 03/04/2025 2:00 PM ELECTRONICS PROCESSING SUPERVISOR [facility] [place] [address] [place] [phone] Homer Alcala MD #[address] [address] Carolin Sykes APRN, MONUMENT STONECUTTER [address] [address] 03/19/2025 10:15 AM ELECTRONICS PROCESSING SUPERVISOR Physical Therapy [facility] at [address] [phone] Sujata Winn, COST ESTIMATOR, MONUMENT STONECUTTER [address] [place] [address] Michelle Patel, PT [place] Discharge Disposition: Discharged to home or Selfcare 03/21/2025 1:30 PM ELECTRONICS PROCESSING SUPERVISOR Office Visit [facility] - [facility]rology - [place] [address] [place] [id number] Ayala Weaver APRN, OUTSIDE PLANT CABLE ENGINEER [address] [place] [address] 04/29/2025 9:00 AM ELECTRONICS PROCESSING SUPERVISOR Office Visit [facility] - Neurology - [place] [address] [place] [address] Ayala Weaver APRN, OUTSIDE PLANT CABLE ENGINEER [address] [place] [address] 05/09/2025 11:00 AM ELECTRONICS PROCESSING SUPERVISOR Office Visit [facility] - Pulmonology & Sleep Medicine - [place] [address] [place] [address] Saurav Goyal MD [address] [place] [address] documented as of this encounter Goals Goal Patient Goal Type Associated Problems Recent Progress Patient-Stated? Author Depression Behavioral Health On track(2024 4:40 PM CDT) No Flora Yip LCSW Note: GOAL: Lisseth will manage depressive symptoms more effectively. Goal Reviewed with: patient today Readiness to change: Ready to change Department associated with goal: [facility] Steps to achieve goal: [...] Ready to change Department associated with goal: [facility] Steps to achieve goal: [...] 19 04/05/2024 04/05/2024 04/05/2024 12:3 5 PM ELECTRONICS PROCESSING SUPERVISOR COVID - 05/19/2024 05/19/2024 05/19/2024 6:18 PM CDT Assessment Noted Time PHQ-9 Depression Total Score: 1 01/12/20 19 5:00 PM ELECTRONICS PROCESSING SUPERVISOR documented as of this encounter Care Teams Lockstitch Machine Operator Relationship Specialty Start Date End Date Waleska Vazquez MD PCP - General Family Medicine 05/28/20 08/31/23 Homer Alcala MD [address] [address] [place] [address] PCP - General Family Medicine 09/01/23 Yuliana Florez DOOR SERVICEMAN Advanced Practice Nurse 01/24/18 Michel Yanez APRN, MONUMENT STONECUTTER [address] [place] [address] Nurse Practitioner Advanced Practice Nurse 12/28/21 Laureano Quigley MD [address] [facility] [address] [place] [address] Consulting Physician Urology 02/04/22 Elsa Kenny APRN, MONUMENT STONECUTTER [address] [facility], [address] [place] [address] Nurse Practitioner Cardiology 07/14/23 09/17/24 Saurav Goyal MD [address] [place] [address] Consulting Physician Pulmonary Disease 07/28/23 Yuni Meneses, [facility] Stunt Person Swaging Machine Operator 11/27/23 12/04/23 Ayala Weaver, COST ESTIMATOR, OUTSIDE PLANT CABLE ENGINEER [address] [place] [address] Nurse Practitioner Neurology 12/18/23 documented as of this encounter
--- OUTSIDE RECORDS SUMMARY | 2025-02-22 12:14 | XMS_ITS | Data Portability ---
Author Organization [facility] Oh ESQUIVEL Address [address] [place] [address] Care Team Providers Care Leather Roller Name Role Phone CATHERINE ORTIZ Wet Machine Cutter LB JEAN BAPTISTE Primary Care Provider [phone] Assessment No assessment recorded. Plan of Treatment Reminders Order Date Submit Date Provider Last Modified By Organization Details Last Modified Time Details Appointments None recorded. Lab SARS CoV 2 RNA (COVID-19) , QL, accounts receivable associate-PCR, respirator y specimen - [facility] 1400 2019 020 [facility] (Lab), [address] [place], [address], 0 13:09:12 HSV (1+2) DNA, qual, PCR, unspecifie d specimen 2018 019 [facility], [address] [facility] [address], [address], 9 16:36:19 Referral None recorded. Procedures None recorded. Surgeries None recorded. Imaging None recorded. Medication Orders valacyclov ir 1 gram tablet 2018 019 INTERFACE [facility], [facility] [address], [place], [address], 9 16:50:31 Patient TargetsNo targets recorded. Patient Instructions Encounter Date Encounter Id Patient Instructions Last Modified By Organization Details Last Modified Time 02/19/2020 [id number] Reviewed the following recommendations: -Stay home and separate from others as much as possible. -Monitor your symptoms and seek medical attention for trouble breathing, persistent chest pain, confusion, or bluish lips or face. -Wear a mask if you must be around other people. -Wash your hands often for 20 seconds with soap and water and clean high-touch surfaces daily -You may discontinue home isolation if your symptoms are improving and it has been 10 days since symptoms started. [email or web address] Not available 02/19/2020 12:34:21 Reason for Referral None Reported. Results Created Date Observation Date Name Description Value Unit Range Abnormal Flag Note LastModifiedBy Organization Detail LastModifiedTime 11/22/1911/26/2018 HSV (1+2) DNA, qual, PCR, unspe cifie d speci men hsv 1 CIERRA Negati ve negati ve Not Available [facility] ([facility]) [address] [place], [address], 11/26/2018 16:36:19 11/22/19 19 11/26/2018 HSV (1+2) DNA, qual, PCR, unspe cifie d speci men hsv 2 CIERRA Negati ve negati ve Not Available [facility] ([facility]) [address] [place], [address], 11/26/2018 16:36:19 Result Notes None recorded. Problems Name Problem SNOMED Code Status Onset Date Resolution Date Notes Provider Name and Address Organization Details Recorded Time Lupus erythematosus 814322938 Active 2018 Anaya [place]ledo [place] 9 12:03:43 Hypothyroidism 51482260 Active 2018 [place]o [place] [facility] 9 12:03:54 Fibromyalgia 599422743 Active 2018 [place]ledo [place] [facility] 9 12:04:01 Hypertensive disorder 39862147 Active 2018 [place]aya [place]ledo [place] [facility] 9 12:04:09 Problem Notes None recorded. Procedures Surgical History Date Name Laterality Status Provider Name and Address Organization Details Recorded Time 11/22/19 Colposcopy completed Catherine Ortiz [facility] 11/21/2018 16:54:19 09/18/20 19 Colposcopy completed Anaya Levine [facility] 11/21/2018 16:02:53 10/13/19 19 Date of Last Pap Smear completed Anaya Levine [facility] 11/13/2018 12:04:37 03/06/19 10 total hysterectomy completed Catherine Ortiz [facility] 11/15/2018 14:57:20 [facility]2018 12:11:15 [facility]2018 12:11:25 cone biopsy [facility]/13/2018 12:11:46 Tubal Ligation [facility] [place] 11/13/2018 12:11:55 Other [facility] [place] [facility] 11/13/2018 12:12:11 Remove tonsils and adenoids [facility] [place] [facility]/13/2018 12:12:24 Imaging Results None recorded. Procedure Notes None recorded. Medical Equipment None Reported. Allergies Allergen ID Allergen Name Allergen Category Reaction Reaction Severity Criticality Documentation Date Start Date Code Code System Note Provider Name and Address Organization Details Recorded Time 019214 tetracycl ine medicatio n vomiting Not available Not available 11/13/2018 37615 [facility] 11:53:46 249909 Levaquin medicatio n Not available Not available Not available 11/13/2018 82077 2 RxNorm cause s tendi nitis [facility] 9 11:54:03 Medications Name Sig Start Date Stop Date Status Note LastModified by Organization Details LastModified Time losartan 50 mg tablet Take 1 tablet every day by oral route. active Not Available Not Available No t Available cyclobenzapr ine 10 mg tablet active Not Available Not Available Not Available tizanidine 2 mg tablet active Not Available Not Available No t Available nystatin 100,000 unit/gram topical ointment active Not Available Not Available Not Available fluconazole 150 mg tablet active Not Available Not Available Not Available metoprolol succinate ER 50 mg tablet,exten ded release 24 hr active Not Available Not Available Not Available valacyclovir 1 gram tablet TAKE 1 TABLET(S) EVERY 12 HOURS BY ORAL ROUTE. active Not Available Not Available Not Available hydrocodone 5 mg-acetamino phen 325 mg tablet TAKE 1 OR 2 TABLETS BY MOUTH DAILY NEEDED USE SPRAINGLY 30 DAY RX active Not Available Not Available No t Available meloxicam 15 mg tablet Take 1 tablet every day by oral route. active Not Available Not Available No t Available prednisone 20 mg tablet active Not Available Not Available Not Available amlodipine 5 mg tablet active Not Available Not Available No t Available acyclovir 400 mg tablet Take 1 tablet 3 times a day by oral route for 10 days. 2018 active Not Available Not Available Not Avai lable aspirin 81 mg tablet,delay ed release TAKE 1 TAB BY MOUTH DAILY. active Not Available Not Available No t Available levothyroxin e 100 mcg tablet Take 1 tablet every day by oral route. active Not Available Not Available No t Available alprazolam 0.5 mg tablet TAKE 1 TABLET BY MOUTH 2 TIMES DAILY NEEDED FOR ANXIETY. active Not Available Not Available No t Available propranolol 10 mg tablet active Not Available Not Available Not Available amoxicillin 875 mg tablet active Not Available Not Available Not Available famotidine 20 mg tablet Take 1 tablet twice a day by oral route. active Not Available Not Available No t Available baclofen 10 mg tablet Take 1 tablet 3 times a day by oral route. active Not Available Not Available No t Available hydrocodone 7.5 mg-acetamino phen 325 mg tablet Take 1 tablet every 6 hours by oral route. active Not Available Not Available Not Available cephalexin 500 mg capsule active Not Available Not Available Not Available pantoprazole 40 mg tablet,delay ed release TAKE ONE TABLET BY MOUTH DAILY active Not Available Not Available Not Available omeprazole 20 mg capsule,argenis yed release Take 1 capsule twice a day by oral route. active Not Available Not Available No t Available methylpredni solone 4 mg tablets in a dose pack active Not Available Not Available No t Available albuterol sulfate HFA 90 mcg/actuatio n aerosol inhaler TAKE 2 PUFFS BY INHALATION EVERY 4 HOURS NEEDED FOR WHEEZING. active Not Available Not Available No t Available celecoxib 100 mg capsule TAKE ONE CAPSULE BY MOUTH DAILY active Not Available Not Available Not Available fluoxetine 20 mg capsule TAKE 1 CAPSULE BY MOUTH DAILY. active Not Available Not Available No t Available Pseudoephedr ine 120 mg tablet,exten ded release Take 1 tablet twice a day by oral route. active Not Available Not Available No t Available cyclobenzapr ine 5 mg tablet TAKE ONE OR TWO TABLETS BY MOUTH THREE TIMES A DAY NEEDED active Not Available Not Available No t Available bupropion HCl XL 300 mg 24 hr tablet, extended release active Not Available Not Available Not Available bupropion HCl XL 150 mg 24 hr tablet, extended release Take 1 tablet every day by oral route. active Not Available Not Available No t Available pregabalin 200 mg capsule Take 1 capsule twice a day by oral route. active Not Available Not Available No t Available pregabalin 225 mg capsule TAKE ONE CAPSULE BY MOUTH TWO TIMES A DAY active Not Available Not Available Not Available simethicone active Not Available Not A vailable Not Available albuterol active Not Available Not Denise ilable Not Available guaifenesin active 600mg Not Available Not A vailable Not Available fexofenadine -pseudoephed rine active Not Available Not Available Not Available metoprolol succinate active 50mg Not Available Not Available No t Available desvenlafaxi ne succinate ER 100 mg tablet,exten ded release 24 hr Take 1 tablet every day by oral route. active Not Available Not Available No t Available loratadine 10 mg capsule Take by oral route. active Not Available Not Available Not Available Narcan 4 mg/actuation nasal spray active Not Available Not Available Not Available Flucelvax Quad 9133-6101 (PF) 60 mcg (15 mcg x 4)/0.5 mL IM syringe active Not Available Not Available Not Available Vitals Date Recorded Body height Body mass index (BMI) Body weight Systolic And Diastolic Provider Name and Address Organization Details Last Updated DateTime 11/21/2018 162.56 cm 31.3 kg/m2 27518.61 g 144/86 mm[Hg] Anaya Levine [facility] 11/21/2018 16:05:12 Date Recorded Body height Body mass index (BMI) Body weight Systolic And Diastolic Provider Name and Address Organization Details Last Updated DateTime 12/03/2018 162.56 cm 31.8 kg/m2 44434.38 g 120/82 mm[Hg] Anaya Levine [facility] 12/03/2018 09:05:22 Social History Question Answer Notes LastModified by Organizat ion Details LastModified Time Tobacco Smoking Status Current Every Day Smoker Anaya rebolledo [facility] 11/13/2018 12:08:24 Is Blood Transfusion Acceptable In An Emergency? Yes [facility] Information not available 11/13/2018 What Is Your Level Of Caffeine Consumption? Occasional Information not available 11/13/2018 How Much Tobacco Do You Chew? None Information not available 11/13/2018 What Type Of Diet Are You Following? REGULAR Information not available 11/13/2018 Which Illicit Or Recreational Drugs Have You Used? Luis Pt States She Has A Medical Luis Card Information not available 11/13/2018 Education 2 Year College Information not available 11/13/2018 Live Alone Or With Others? With Others Information not available 11/13/2018 How Many Children Do You Have? 2 Information not available 11/13/2018 Performs Monthly Self-breast Exam? No Information not available 11/13/2018 Do You Use Protection During Sex? No Information not available 11/13/2018 What Is Your Relationship Status? Information not available 11/13/2018 Seat Belts Used Routinely Yes Information not available 11/13/2018 Are You Sexually Active? Yes Information not available 11/13/2018 At What Age Did You Start Smoking Tobacco? 11 Information not available 11/13/2018 How Much Tobacco Do You Smoke? 0.5 PPD Information not available 11/13/2018 General Stress Level High Information not available 11/13/2018 Do You Use Sunscreen Routinely? No Information not available 11/13/2018 How Many Years Have You Smoked Tobacco? 37 Information not available 11/13/2018 Sex: Unknown Functional Status Question Answer Note LastModified by Organizat ion Details LastModified Time What is your level of alcohol consumption? None Information not available 11/13/2018 Are you currently employed? Yes Information not available 11/13/2018 What is your exercise level? Occasional Information not available 11/13/2018 Mental Status None recorded. Family History Nothing Reported Notes:pt adopted Medical History Condition Response High Blood Pressure Y Breast Cancer N Thyroid Problems Y Kidney or Bladder Problems N Lung Disease N Depression Y Blood Clots N GI Problems Y Acne N Breast Problem N Eating Disorder N Anemia N Anesthesia Complications N Headaches/Migraines Y Ovarian Cancer N Diabetes N Anxiety Disorder Y Muscle, Joint, or Bone Problems Y Blood Transfusions N Seizures/Epilepsy N Polyps N Infertility N Acid Reflux (GERD) Y Cancer N Abuse/Domestic Violence N Asthma N Endometriosis N High Cholesterol N Hepatitis N Liver Disease N Heart Disease N Pre-Eclampsia Y Osteoporosis Y Gynecological History Statement/Question Response Abnormal Pap Y On BCP's at Conception? N STIs/STDs N HPV Vaccine N Most Recent Mammogram Current Control Method Hysterectom y Age at First Child 24 Sexually Active? Y Menses Monthly N Date of Last Pap Smear 10/12/2018 Sexual Problems? N LMP Unknown Obstetrics History GPAL:G 2 P 2 0 0 2 Type Value Multiple Births 0 Full Term 2 Induced 0 Spontaneous 0 Premature 0 Living 2 Ectopics 0 Total 2 Immunizations Vaccine Type Date Status Note Provider Nam e and Address Organization Details Recorded Time COVID-19, mRNA, LNP-S, PF, 100 mcg/0.5mL dose or 50 mcg/0.25mL dose 05/15/2020 completed Angelique Jaffe [place] null, [place] - [facility] 05/15/2020 15:26:49 COVID-19, mRNA, LNP-S, PF, 100 mcg/0.5mL dose or 50 mcg/0.25mL dose 06/12/2020 completed Monet Smith LPN null, [place] [facility] 06/12/2020 17:10:29 Past Encounters Encounter ID Performer Location Encounter Start Date Encounter Closed Date Diagnosis/Indication Diagnosis SNOMED-CT Code Diagnosis ICD10 Code Diagnosis IMO Codes Diagnosis Note [id number] MD Cira Mclean (LABOR STANDARDS DIRECTOR) [address] [place] [address] 11/13/2018 11:38:03 11/15/2018 15:00:57 Low grade squamous intraepithelial lesion on cervical Papanicolaou smear 3129971707 9105 R87.612 Progressio n of abnormal cervical cells to cervical CA d/w pt. as well as pt.'s current pap in that progressio n. Need for colposcopy and colposcopy procedure d/w pt. Pt. to make appointmen t for colposcopy MAG. Handout given [id number] MD Ciar Mclean (LABOR STANDARDS DIRECTOR) [address] [place] [address] 11/21/2018 15:55:11 11/22/2018 10:05:50 Vaginal ulcer 81749039 N76.5 Dx HSV d/w pt. Pt. denies ever having an outbreak. Pt. states her partner has no sores. No sex until cleared d/w pt. Rx sent to pharmacy. saira arguello discussed. RTO one week for follow-up. Low grade squamous intraepithelial lesion on vaginal Papanicolaou smear 6454233016 57904 R87.622 Benefits, risks, and alternativ es to colposcopy d/w pt. Pt. expressed understand ing. All pt. questions answered. Consent signed and in chart. Colposcopy performed without difficulty . Please see procedure note for details. [id number] MD Cira Mclean (LABOR STANDARDS DIRECTOR) [address] [place] [address] 12/03/2018 08:56:34 12/03/2018 14:15:25 Health condition feared but not present 2123844158 45259 Z71.1 Culture was negative for both HSV 1 and HSV 2, dwp. Pt. states, her lupus has caused many wierd things that mimic other diseases. This is nothing new for her. Repeat pap in one year, dwp. [id number] Zhanna Carr, [facility] [address] [place] [address] 02/19/2020 12:20:52 02/20/2020 10:08:37 Viral screening 680802465 Z11.59 Viral syndrome 153704006 B34.9 [id number] MD Byron Finch 14 IM [address] [facility] [address] [place] [address] 05/15/2020 14:38:17 05/15/2020 18:45:57 Administration of SARS-CoV-2 antigen vaccine 961784617 Z23 [id number] MD Byron Finch 14 IM [address] [facility] [place] [address] 06/12/2020 14:36:03 06/13/2020 10:34:22 Administration of SARS-CoV-2 antigen vaccine 179522994 Z23 Health Concerns Section Related Observation LastModified by Organization Detai ls LastModified Time None Recorded Concern Status LastModified by Organization Details LastModified Time None Recorded Advance Directives Directive None Recorded Payers Insurance Date Sequence Insurance Name Policy Number Policy Singer Covered Member ID Singer Member ID Guarantor Name 06/09/2020 1 [employer] [facility] (PP[place]) [id number] Lisseth Gutierrez [id number] Lisseth Gutierrez 02/24/2020 1 [facility] PRIOR TO 09/03/2020 (MEDICAID REPLACEMENT - HMO) Lisseth Gutierrez [id number] Lisseth Gutierrez 06/09/2020 2 [facility] (MEDICAID HMO) [id number] Lisseth Gutierrez [id number] Lisseth Gutierrez Notes Date Note Type Note Provider Name and Address Organization Details Recorded Time 12/03/2018 text/html ROS as noted in the HPI Pt. presents for results of HSV culture done for ulcerated lesions of the vagina at the time of colposcopy for LSIL pap. She has no complaints. Catherine rebolledo, [facility] 12/03/2018 10:02:29 02/19/2020 text/html Pt with a history of lupus, HTN ad thyroid disease is requesting COVID-19 testing; as pt denies s/s. Pt reports being in contact with someone who recently tested positive. TRENTON Ram Attn: Accounting,[address] [place], [address], [facility] 02/19/2020 12:36:53 OBGyn Episode Ob Episode Information Episode Created Date Number of Fetuses Patient Bloodtype Patient rh Status Prepregnancy Weight lbs Domestic Partner Domestic Partner Phone Father Name Director Business Management Status 11/14/19 19 1 CLOSED Fetus Data First Name Last Name Admitted to NICU Weight (g) Sex Living Outcome Pediatric Complications Fetus ID Race Codes Race Delivery Type M Full Term [id number] Vaginal [place] Calculation Initial [place] Date Initial Exam Date Initial Exam Provider Initial Ultrasound Date Last Menstrual Period Date Ultra Sound Weeks Gestation 0 Eighteen To Twenty Week [place] Update Ultra Sound Date Fundal Height At Umbil Quickening Date Ultra Sound Latest Weeks Gestation Final [place] Confirmed By Final [place] Confirmed Date Final [place] Date Ultra Sound Latest Days Gestation 0 0 Menstrual History Last Menstrual Date Menses Monthly On Bcp Conception Prior Menses Frequency Hcg Plus Date Menarche Onset Age Delivery Information Delivery Date Delivery Type Labor Anesthesia Weeks Gestation Incision Type Labor Labor Length Hrs Delivered By Post Complications Tubal Sterilization Discharge Date Comments 5 Discharge Information Feeding Method Contraceptive Method Maternal HG B and HCT Levels Ob Episode Information Episode Created Date Number of Fetuses Patient Bloodtype Patient rh Status Prepregnancy Weight lbs Domestic Partner Domestic Partner Phone Father Name Director Business Management Status 11/14/19 19 1 CLOSED Fetus Data First Name Last Name Admitted to NICU Weight (g) Sex Living Outcome Pediatric Complications Fetus ID Race Codes Race Delivery Type M Full Term [id number] Vaginal [place] Calculation Initial [place] Date Initial Exam Date Initial Exam Provider Initial Ultrasound Date Last Menstrual Period Date Ultra Sound Weeks Gestation 0 Eighteen To Twenty Week [place] Update Ultra Sound Date Fundal Height At Umbil Quickening Date Ultra Sound Latest Weeks Gestation Final [place] Confirmed By Final [place] Confirmed Date Final [place] Date Ultra Sound Latest Days Gestation 0 0 Menstrual History Last Menstrual Date Menses Monthly On Bcp Conception Prior Menses Frequency Hcg Plus Date Menarche Onset Age Delivery Information Delivery Date Delivery Type Labor Anesthesia Weeks Gestation Incision Type Labor Labor Length Hrs Delivered By Post Complications Tubal Sterilization Discharge Date Comments 7 Discharge Information Feeding Method Contraceptive Method Maternal HG B and HCT Levels
--- OUTSIDE RECORDS SUMMARY | 2025-02-22 12:14 | XMS_ITS | Encounter Summary ---
Author Organization [facility] Address [address] [place] [address] Phone Care Team Providers Care Road Roller Operator Name Role Phone Yuliana Folrez APN Unavailable Unavailab Michel Shepherd BREAKER TABLE WORKER, CARE INFORMATION ASSOCIATE Unavailable [phone] Laureano Quigley MD Unavailable [phone] Elsa Kenny BREAKER TABLE WORKER, CARE INFORMATION ASSOCIATE Unavailable + [phone] Saurav Goyal MD Unavailable Homer Alcala MD Primary Care Provider [phone] Ayala Weaver BREAKER TABLE WORKER, PLUMBER Unavailable + [phone] Reason for Referral * PT/OT/ST (Routine) - Authorized Specialty Diagnoses / Procedures Referred By Contac t Referred To Contact Physical Therapy Diagnoses Trochanteric bursitis of left hip Tan Hardy MD [address] [place] [address] Phone: tel: fax: [facility] [address] [place] [address] Phone: tel: fax: Referral ID Status Reason Start Date Expiration Date V isits Requested Visits Authorized [id number] Authorized 07/05/2024 100 100 Scheduling Instructions Encounter Details Date Type Department Care Team (Latest Contact Info) Description 07/05/2024 Transcribe Orders [facility] [address] [place] [address] Tan Hardy MD [facility] [place] [address] Trochanteric bursitis of left hip (Primary Dx) Social History Tobacco Use Types Packs/Day Years Used Date Smoking Tobacco: Former Cigarettes 0 Q uit: 03/13/1988 Smokeless Tobacco: Never Alcohol Use Standard Drinks/Week Comments Not Currently 0 (1 standard drink = 0.6 oz pur e alcohol) seldom [facility] Utilities Answer Date Recorded In the past 12 months has [employer] electric, gas, oil, or water company threatened [...] declined 04/16/2024 How often do you attend yarsani or yazidism serv ices? Patient declined 04/16/2024 Do you belong to any clubs o r organizations such as yarsani groups, unions, fraternal or athletic groups, or [...] Total Score - Questions 1-9 13 02/03 [facility] of Occupat ional [facility] - Occupational Stress Questionnaire Answer Date [...] any time in the past 12 m [facility], were you homeless or living in a fdc (including now)? No 04/16/2024 Education Answer Date [...] Contact Info) Description 03/03/2025 10:00 AM SENIOR INVESTMENT MANAGER Office Visit [facility] Medical [facility] - Orthopedic Surgery - [place] [address] [place] [address] Homer Alcala MD #[address] [address] Ann Graham MD #[address] [address] 03/04/2025 2:00 PM SENIOR INVESTMENT MANAGER Office Visit [facility] Cardiology [facility] #[address] [place] [address] Homer Alcala MD #[address] [address] Carolin Sykes APRN, CARE INFORMATION ASSOCIATE 2 [facility] [address] [place] [address] 03/19/2025 10:15 AM SENIOR INVESTMENT MANAGER Physical Therapy [facility] 200 [facility], [facility] [address] [place] [address] Sujata Winn, BREAKER TABLE WORKER, CARE INFORMATION ASSOCIATE [address] [place] [address] Michelle Patel, PT [place] Discharge Disposition: Discharged to home or Selfcare 03/21/2025 1:30 PM SENIOR INVESTMENT MANAGER Office Visit [facility] Neurology [facility] #[address] [place] [address] Ayala Weaver APRN, PLUMBER #[address] [place] [address] 04/29/2025 9:00 AM SENIOR INVESTMENT MANAGER Office Visit [facility] Neurology [facility] #[address] [place] [address] Ayala Weaver APRN, PLUMBER [address] [place] [address] 05/09/2025 11:00 AM SENIOR INVESTMENT MANAGER Office Visit [facility] Pulmonology & Sleep Medicine [facility] #2 [place] [address] Saurav Goyal MD #[address] [place] [address] Scheduled Referrals Name Type Priority Associated Diagnoses Orde r Schedule PHYSICAL THERAPY REFERRAL Outpatient Referral Routine Trochanteric bursitis of left hip Expected: 07/05/2024, Expires: 07/05/2025 documented as of this encounter Goals Goal Patient Goal Type Associated Problems Recent Progress Patient-Stated? Author Depression Behavioral Health On track(2024 4:40 PM CDT) Flora Miller, ASSISTANT BRANCH OPERATIONS MANAGER Note: GOAL: Lisseth will manage depressive [...] Ready to change Department associated with goal: [facility] Steps to achieve [...] as of this encounter Visit Diagnoses Diagnosis Trochanteric bursitis of left hip- Primary Enthesopathy of hip region documented in this encounter Additional Health Concerns Assessment Noted Time PHQ-9 Depression Total Score: 13 024 2:00 PM SENIOR INVESTMENT MANAGER documented as of this encounter Care Teams Road Roller Operator Relationship Specialty Start Date End Date Homer Alcala MD #2 [facility] [address] [place] [address] PCP - General Family Medicine 09/01/23 Yuliana Florez APN Advanced Practice Nurse 01/24/18 Michel Yanez APRN, CARE INFORMATION ASSOCIATE #2 [place] [address] Nurse Practitioner Advanced Practice Nurse 12/28/21 Laureano Quigley MD #2 [facility] [address] [place] [address] Consulting Physician Urology 02/04/22 Elsa Kenny APRN, CARE INFORMATION ASSOCIATE #2 [facility] [address] [place] [address] Nurse Practitioner Cardiology 07/14/23 09/17/24 Saurav Goyal MD #2 [place] [address] Consulting Physician Pulmonary Disease 07/28/23 Ayala Weaver, BREAKER TABLE WORKER, PLUMBER [address] [place] [address] Nurse Practitioner Neurology 12/18/23 documented as of this encounter
--- OUTSIDE RECORDS SUMMARY | 2025-02-22 12:14 | XMS_ITS | Encounter Summary ---
Author Organization [facility] Address [address] [place] [address] Phone Care Team Providers Care Hydraulic Controls Technician Name Role Phone Yuliana Florez APN Unavailable Unavailab Michel Shepherd CHILLER HAND, CARPET INSPECTOR FINISHED Unavailable [phone] Laureano Quigley MD Unavailable [phone] Elsa Kenny CHILLER HAND, CARPET INSPECTOR FINISHED Unavailable + [phone] Saurav Goyal MD Unavailable Homer Alcala MD Primary Care Provider [phone] Ayala Weaver CHILLER HAND, CHAPTER RELATIONS ADMINISTRATOR Unavailable + [phone] Reason for Visit * Reason Comments Medication Refill Encounter Details Date Type Department Care Team (Late st Contact Info) Description 02/07/2024 Refill [facility] - [facility] #[address] [place] [address] Homer Alcala MD #[address] [address] Medication Refill Social History Tobacco Use Types Packs/Day Years Used Date Smoking Tobacco: Some Days Cigarettes 0 Last attempted to quit: 03/13/1988 Smokeless Tobacco: Never Alcohol Use Standard Drinks/Week Comments Not Currently 0 (1 standard drink = 0.6 oz pur e alcohol) seldom [facility] Utilities Answer Date Recorded In the past 12 months has [employer] electric, gas, oil, or water company threatened [...] declined 12/04/2023 How often do you attend mosque or orthodox serv ices? Patient declined 12/04/2023 Do you belong to any clubs o r organizations such as mosque groups, unions, fraternal or athletic groups, or [...] Total Score - Questions 1-9 5 11/06 [facility] of Occupat ional Health - Occupational Stress [...] time in the past 12 m [facility], were you homeless or living in a fdc (including now)? 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 Not on file Not on file documented as of this encounter Miscellaneous Notes * Telephone Encounter - Darline Seth RN - 02/07/2024 1:19 PM CST Last Rx from Dr Vazquez - was for 1 tab daily This was discontinued back in 09/12/23 - pt not taking WORKER documented in this encounter Plan of Treatment Upcoming Encounters Date Type Department Care Team (Latest Contact Info) Description 03/03/2025 10:00 AM LACEWORKER Office Visit [facility] - Orthopedic Surgery - [place] [address] [place] [address] Homer Alcala MD #2 [facility] [address] [place] [address] Ann Graham MD #[address] [address] 03/04/2025 2:00 PM LACEWORKER Office Visit [facility] Cardiology [facility] #2 [place] [address] Homer Alcala MD #[address] [address] Carolin Sykes APRN, CARPET INSPECTOR FINISHED 2 [facility] [address] [place] [address] 03/19/2025 10:15 AM LACEWORKER Physical Therapy [facility] 200 [facility], [facility] [address] [place] [address] Sujata Winn, CHILLER HAND, CARPET INSPECTOR FINISHED [address] [place] [address] Michelle Patel, PT [place] Discharge Disposition: Discharged to home or Selfcare 03/21/2025 1:30 PM LACEWORKER [facility] [place] [facility]2 [facility] [place] [address] Ayala Weaver, CHILLER HAND, CHAPTER RELATIONS ADMINISTRATOR #2 [place] [address] 04/29/2025 9:00 AM LACEWORKER Office Visit [facility] - Neurology - [place] #2 [facility] [place] [address] Ayala Weaver, CHILLER HAND, CHAPTER RELATIONS ADMINISTRATOR #2 [place] [address] 05/09/2025 11:00 AM LACEWORKER Office Visit [facility] - Pulmonology & Sleep Medicine - [place] #2 [facility] [place] [address] Saurav Goyal MD #2 [place] [address] documented as of this encounter Goals Goal [...] change Department associated with goal: [facility] Steps to [...] 19 04/05/2024 04/05/2024 04/05/2024 12:3 5 PM LACEWORKER COVID - 05/19/2024 05/19/2024 05/19/2024 6:18 PM CDT Assessment Noted Time PHQ-9 Depression Total Score: 5 12/04/19 24 2:08 PM CDT documented as of this encounter Care Teams Hydraulic Controls Technician Relationship Specialty Start Date End Date Homer Alcala MD #2 [facility] [address] [place] [address] PCP - General Family Medicine 09/01/23 Yuliana Florez APN Advanced Practice Nurse 01/24/18 Michel Yanez APRN, CARPET INSPECTOR FINISHED #2 [place] [address] Nurse Practitioner Advanced Practice Nurse 12/28/21 Laureano Quigley MD #[address] [facility] [address] [place] [address] Consulting Physician Urology 02/04/22 Elsa Kenny APRN, CARPET INSPECTOR FINISHED #2 [facility] [address] [place] [address] Nurse Practitioner Cardiology 07/14/23 09/17/24 Saurav Goyal MD #2 [place] [address] Consulting Physician Pulmonary Disease 07/28/23 Ayala Weaver APRN, CHAPTER RELATIONS ADMINISTRATOR #2 [place] [address] Nurse Practitioner Neurology 12/18/23 documented as of this encounter
--- OUTSIDE RECORDS SUMMARY | 2025-02-22 12:14 | XMS_ITS | Encounter Summary ---
Author Organization [facility] Address [address] [place] [address] Phone Care Team Providers Care Ticket Taker Name Role Phone Yuliana Florez APN Unavailable Unavailab Damaso Chaudhari MD Primary Care Provider [phone] Michel Yanez APRN, REGISTERED TRAVEL NURSE Unavailable [phone] Laureano Quigley MD Unavailable [phone] Elsa Kenny APRN, REGISTERED TRAVEL NURSE Unavailable + [phone] Saurav Goyal MD Unavailable Homer Alcala MD Primary Care Provider [phone] Yuni Meneses DYER AND WASHER Unavailable Unavailab Ayala Orozco APRN, HOT PLATE [place] PRESS LABORER Unavailable + [phone] Reason for Visit * Reason Comments Medication Refill Encounter Details Date Type Department Care Team (Late st Contact Info) Description 06/13/2022 Refill [facility] - Family Medicine [facility] #[address] [place] [address] Damaso Vazquez MD #[address] [place] [address] Medication Refill Social History Tobacco Use Types [...] 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 Requested Prescriptions Pending Prescriptions Disp Refills losartan (COZAAR) 50 MG Tablet [Pharmacy Med Name: LOSARTAN POTASSIUM 50MG TABLET] 30 Tablet 2 Sig: TAKE 1 TABLET BY MOUTH DAILY ARB Protocol Failed - 06/13/2022 7:28 AM Failed - Serum potassium on record in past 12 months No results found for: POTASSIUM, POCTK Failed - GFR on record in past 12 months No results found for: GFRNA Passed - BP on record in the past year Clinician-entered: BP Readings from Last 3 Encounters: 04/04/22 124/76 03/21/22 110/62 02/04/22 110/70 Patient-entered: No data recorded Passed - Visit with relevant provider in past year or upcoming 90 days Recent Visits Date Type Provider Dept 04/04/22 Office Visit Damaso Vazquez MD [facility] 03/21/22 Office Visit Damaso Vazquez MD [facility] Showing recent visits within past 365 days and meeting all other requirements Future Appointments No visits were found meeting these conditions. Showing future appointments within next 90 days and meeting all other requirements documented in this encounter Plan of Treatment Upcoming Encounters Date Type Department Care Team (Latest Contact Info) Description 03/03/2025 10:00 AM PRODUCE WEIGHER Office Visit [facility] - Orthopedic Surgery - [place] #[address] [place] [address] Homer Alcala MD #[address] [address] Ann Graham MD #[address] [address] 03/04/2025 2:00 PM PRODUCE WEIGHER Office Visit [facility] Cardiology - [place] #[address] [place] [address] Homer Alcala MD #[address] [address] Carolin Sykes APRN, REGISTERED TRAVEL NURSE [address] [address] 03/19/2025 10:15 AM PRODUCE WEIGHER Physical Therapy [facility] Rehab at [facility] [address] [address] Sujata Winn, CONE EXAMINER, REGISTERED TRAVEL NURSE [address] [place] [address] Michelle Patel, PT [place] Discharge Disposition: Discharged to home or Selfcare 03/21/2025 1:30 PM PRODUCE WEIGHER Office Visit [facility] Neu[facility] #2 [place] [address] Ayala Weaver, CONE EXAMINER, HOT PLATE [place] PRESS LABORER #2 [facility] [place] [address] 04/29/2025 9:00 AM PRODUCE WEIGHER Office Visit [facility] #2 [place] [address] Ayala Weaver, CONE EXAMINER, HOT PLATE [place] PRESS LABORER #2 [facility] [place] [address] 05/09/2025 11:00 AM PRODUCE WEIGHER Office Visit [facility] Pulmonology & Sleep Medicine [facility] #2 [place] [address] Saurav Goyal MD #2 [facility] [place] [address] documented as of this encounter Goals Goal Patient Goal Type Associated Problems Recent Progress Patient-Stated? Author Depression Behavioral Health On track(2024 4:40 PM CDT) Flora Miller, WINE AND SPIRITS CLERK Note: GOAL: Lisseth will manage depressive symptoms more effectively. Goal Reviewed with: patient today Readiness to change: Ready to change Department associated with goal: [facility] Steps to [...] track(2024 4:40 PM CDT) No Flora Yip, WINE AND SPIRITS CLERK Note: GOAL: Lisseth will process feelings of grief and loss related to her son. Goal Reviewed with: patient today Readiness to change: Ready to change Department associated with goal: [facility] Steps to [...] 19 04/05/2024 04/05/2024 04/05/2024 12:3 5 PM PRODUCE WEIGHER COVID - 19 05/19/2024 05/19/2024 05/19/2024 6:18 PM CDT Assessment Noted Time PHQ-9 Depression Total Score: 1 01/12/20 19 5:00 PM PRODUCE WEIGHER documented as of this encounter Care Teams Ticket Taker Relationship Specialty Start Date End Date Damaso Vazquez MD PCP - General Family Medicine 05/28/20 08/31/23 Homer Alcala MD #[address] [address] PCP - General Family Medicine 09/01/23 Yuliana Florez APN Advanced Practice Nurse 01/24/18 Michel Yanez APRN, REGISTERED TRAVEL NURSE #2 [place] [address] Nurse Practitioner Advanced Practice Nurse 12/28/21 Laureano Quigley MD #2 [facility], [address] [place] [address] Consulting Physician Urology 02/04/22 Elsa Kenny, CONE EXAMINER, REGISTERED TRAVEL NURSE #2 [facility], [address] [place] [address] Nurse Practitioner Cardiology 07/14/23 09/17/24 Saurav Goyal MD #2 [place] [address] Consulting Physician Pulmonary Disease 07/28/23 Yuni Meneses, DYER AND WASHER [place] Senior Business Objects Developer Customer Marketing Assistant 11/27/23 12/04/23 Ayala Weaver APRN, HOT PLATE [place] PRESS LABORER #2 [place] [address] Nurse Practitioner Neurology 12/18/23 documented as of this encounter
--- OUTSIDE RECORDS SUMMARY | 2025-02-22 12:14 | XMS_ITS | Encounter Summary ---
Author Organization [facility] Address [address] [place] [address] Phone Care Team Providers Care Fiscal Agent Name Role Phone Yuliana Florez APN Unavailable Unavailab Damaso Chaudhari MD Primary Care Provider [phone] Michel Yanez APRN, DYE EXPERT Unavailable [phone] Laureano Quigley MD Unavailable [phone] Elsa Kenny APRN, DYE EXPERT Unavailable + [phone] Saurav Goyal MD Unavailable Homer Alcala MD Primary Care Provider [phone] Yuni Meneses BUSINESS PROJECT ANALYST Unavailable Unavailab Ayala Orozco APRN, BOOKIE Unavailable + [phone] Reason for Visit * Reason Comments Medication Refill Encounter Details Date Type Department Care Team (Late st Contact Info) Description 11/12/2021 Refill [facility] - Family Medicine [facility] #2 [place] [address] Damaso Vazquez MD #1 [place] [address] Medication Refill Social History Tobacco Use Types [...] 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 Did not go through protocol; sending to PCP for approval if appropriate-pt last seen on 2021. Requested Prescriptions Pending Prescriptions Disp Refills tamsulosin (FLOMAX) 0.4 MG Capsule [Pharmacy Med Name: TAMSULOSIN HYDROCHLORIDE 0.4MG CAPSULE] 90 Capsule 3 Sig: TAKE ONE (1) CAPSULE BY MOUTH DAILY. There is no refill protocol information for this order documented in this encounter Plan of Treatment Upcoming Encounters Date Type Department Care Team (Latest Contact Info) Description 03/03/2025 10:00 AM TRAIN SYSTEM OPERATOR Office Visit [facility] Medical [facility] - Orthopedic Surgery [facility] #2 [place] [address] Homer Alcala MD #2 [facility] [address] [place] [address] Ann Graham MD #2 [facility] [address] [place] [address] 03/04/2025 2:00 PM TRAIN SYSTEM OPERATOR [facility] [place] #2 [place] [address] Homer Alcala MD #2 [facility] [address] [place] [address] Carolin Sykes, PYRIDINE RECOVERY OPERATOR, DYE EXPERT 2 [facility] [address] [place] [address] 03/19/2025 10:15 AM TRAIN SYSTEM OPERATOR [facility] [address] [address] Sujata Winn, PYRIDINE RECOVERY OPERATOR, DYE EXPERT [address] [place] [address] Michelle Patel, PT [place] Discharge Disposition: Discharged to home or Selfcare 03/21/2025 1:30 PM TRAIN SYSTEM OPERATOR [facility] #2 [place] [address] Ayala Weaver APRN, BOOKIE #2 [place] [address] 04/29/2025 9:00 AM TRAIN SYSTEM OPERATOR [facility] #2 [place] [address] Ayala Weaver PYRIDINE RECOVERY OPERATOR, BOOKIE #2 [place] [address] 05/09/2025 11:00 AM TRAIN SYSTEM OPERATOR Office Visit [facility] - Pulmonology & Sleep Medicine - [place] #2 [place] [address] Saurav Goyal MD #2 [place] [address] documented as of this encounter Goals Goal [...] as of this encounter Visit Diagnoses Diagnosis Bladder retention of urine Retention of urine, unspecified documented in this encounter Additional Health Concerns Infection Onset Date Last Indicated Resolved Time COVID - 19 10/08/2023 10/08/2023 10/08/2023 11:4 0 AM CDT COVID - 19 04/05/2024 04/05/2024 04/05/2024 12:3 5 PM TRAIN SYSTEM OPERATOR COVID - 19 05/19/2024 05/19/2024 05/19/2024 6:18 PM CDT Assessment Noted Time PHQ-9 Depression Total Score: 1 01/12/20 19 5:00 PM TRAIN SYSTEM OPERATOR documented as of this encounter Care Teams Fiscal Agent Relationship Specialty Start Date End Date Damaso Vazquez MD PCP - General Family Medicine 05/28/20 08/31/23 Homer Alcala MD #2 [facility] [address] [place] [address] PCP - General Family Medicine 09/01/23 Yuliana Florez APN Advanced Practice Nurse 01/24/18 Michel Yanez APRN, DYE EXPERT #2 [place] [address] Nurse Practitioner Advanced Practice Nurse 12/28/21 Laureano Quigley MD #2 [facility] [address] [place] [address] Consulting Physician Urology 02/04/22 Elsa Kenny APRN, DYE EXPERT #2 [facility] [address] [place] [address] Nurse Practitioner Cardiology 07/14/23 09/17/24 Saurav Goyal MD #2 [place] [address] Consulting Physician Pulmonary Disease 07/28/23 Yuni Meneses, BUSINESS PROJECT ANALYST [place] [employer] Administrator 11/27/23 12/04/23 Ayala Weaver, PYRIDINE RECOVERY OPERATOR, BOOKIE #2 [place] [address] Nurse Practitioner Neurology 12/18/23 documented as of this encounter
--- OUTSIDE RECORDS SUMMARY | 2025-02-22 12:14 | XMS_ITS | Encounter Summary ---
Author Organization [facility] Address [address] [place] [address] Phone Care Team Providers Care Tug Boat Engineer Name Role Phone Yuliana Florez APN Unavailable Unavailab Damaso Chaudhari MD Primary Care Provider [phone] Michel Yanez APRN, CERTIFIED PHYSICIAN'S ASSISTANT Unavailable [phone] Laureano Quigley MD Unavailable [phone] Elsa Kenny APRN, CERTIFIED PHYSICIAN'S ASSISTANT Unavailable + [phone] Saurav Goyal MD Unavailable Homer Alcala MD Primary Care Provider [phone] Yuni Meneses KINDERGARTEN CLASSROOM TEACHER Unavailable Unavailab Ayala Orozco APRN, INFORMATION SYSTEMS ANALYST Unavailable + [phone] Reason for Visit * Reason Comments Medication Refill Encounter Details Date Type Department Care Team (Late st Contact Info) Description 06/01/2022 Refill [facility] - [place] #2 [place] [address] Damaso Vazquez MD #1 [place] [address] Medication Refill Social History Tobacco Use Types [...] 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 file Not on file documented as of this encounter Miscellaneous Notes * Telephone Encounter - Winifred Contreras RN - 06/01/2022 11:09 AM CDT Duplicate documented in this encounter Plan of Treatment Upcoming Encounters Date Type Department Care Team (Latest Contact Info) Description 03/03/2025 10:00 AM DATA LIBRARIAN Office Visit [facility] Medical [facility] - Orthopedic Surgery - [place] #2 [place] [address] Homer Alcala MD #2 [facility] 205 [place] [address] Ann Graham MD #2 [facility] [address] [place] [address] 03/04/2025 2:00 PM DATA LIBRARIAN Office Visit [facility] - Cardiology - [place] #2 [place] [address] Homer Alcala MD #2 [facility] 205 [place] [address] Carolin Sykes APRN, CERTIFIED PHYSICIAN'S ASSISTANT 2 [facility] [address] [place] [address] 03/19/2025 10:15 AM DATA LIBRARIAN Physical Therapy [facility] Re[facility] at [facility] [address] [place] [facility], [facility] [address] [place] [address] Sujata Winn, CLERK OF WORKS, CERTIFIED PHYSICIAN'S ASSISTANT [address] [place] [address] Michelle Patel, PT [place] Discharge Disposition: Discharged to home or Selfcare 03/21/2025 1:30 PM DATA LIBRARIAN [facility] Visit [facility] - Neurology - [place] #2 [place] [address] Ayala Weaver APRN, INFORMATION SYSTEMS ANALYST #2 [place] [address] 04/29/2025 9:00 AM DATA LIBRARIAN Office Visit [facility] - Neurology - [place] #2 [place] [address] Ayala Weaver APRN, INFORMATION SYSTEMS ANALYST #2 [place] [address] 05/09/2025 11:00 AM DATA LIBRARIAN Office Visit [facility] - Pulmonology & Sleep Medicine - [place] #2 [place] [address] Saurav Goyal MD #[address] [place] [address] documented as of this encounter Goals Goal Patient Goal Type Associated Problems Recent Progress Patient-Stated? Author Depression Behavioral Health On track(2024 4:40 PM CDT) No Flora Yip LCSW Note: GOAL: Lisseth will manage depressive symptoms more effectively. Goal Reviewed with: patient today Readiness to change: Ready to change Department associated with goal: [facility] Steps [...] Ready to change Department associated with goal: [facility] Steps [...] 19 04/05/2024 04/05/2024 04/05/2024 12:3 5 PM DATA LIBRARIAN COVID - 19 05/19/2024 05/19/2024 05/19/2024 6:18 PM CDT Assessment Noted Time PHQ-9 Depression Total Score: 1 01/12/20 19 5:00 PM DATA LIBRARIAN documented as of this encounter Care Teams Tug Boat Engineer Relationship Specialty Start Date End Date Damaso Vazquez MD PCP - General Family Medicine 05/28/20 08/31/23 Homer Alcala MD #2 [facility] [address] [place] [address] PCP - General Family Medicine 09/01/23 Yuliana Florez, IRONING MACHINE OPERATOR Advanced Practice Nurse 01/24/18 Michel Yanez CLERK OF WORKS, CERTIFIED PHYSICIAN'S ASSISTANT #2 [place] [address] Nurse Practitioner Advanced Practice Nurse 12/28/21 Laureano Quigley MD #2 [facility] [address] [place] [address] Consulting Physician Urology 02/04/22 Elsa Kenny CLERK OF WORKS, CERTIFIED PHYSICIAN'S ASSISTANT #2 [facility] [place] [facility], [facility] [address] [place] [address] Nurse Practitioner Cardiology 07/14/23 09/17/24 Saurav Goyal MD #2 [place] [address] Consulting Physician Pulmonary Disease 07/28/23 Yuni Meneses, [facility] Threshing Operator Rubber Ball Finisher 11/27/23 12/04/23 Ayala Weaver APRN, INFORMATION SYSTEMS ANALYST #2 [place] [address] Nurse Practitioner Neurology 12/18/23 documented as of this encounter
--- OUTSIDE RECORDS SUMMARY | 2025-02-22 12:14 | XMS_ITS | Encounter Summary ---
Author Organization [facility] Address [address] [place] [address] Phone Care Team Providers Care Cloth Stock Sorter Name Role Phone Yuliana Florez APN Unavailable Unavailab Damaso Chaudhari MD Primary Care Provider [phone] Michel Yanez APRN, PHYSICAL SECURITY SPECIALIST Unavailable [phone] Laureano Quigley MD Unavailable [phone] Elsa Kenny APRN, PHYSICAL SECURITY SPECIALIST Unavailable + [phone] Saurav Goyal MD Unavailable Homer Alcala MD Primary Care Provider [phone] Yuni Meneses MANUFACTURING DEVELOPMENT ENGINEER Unavailable Unavailab Ayala Orozco APRN, GROUND SERVICES INSTRUCTOR Unavailable + [phone] Reason for Visit * Reason Comments Medication Refill Encounter Details Date Type Department Care Team (Late st Contact Info) Description 08/02/2022 Refill [facility] - Family [facility] #2 [place] [address] Damaso Vazquez MD #1 [facility] [place] [address] Medication Refill Social History Tobacco Use Types [...] 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 No / Unsure 07/20/2022 4:51 PM CDT documented as of this encounter Miscellaneous Notes * Telephone Encounter - Lisseth Haji RN - 08/02/2022 1:59 PM CDT Medication failed the protocol, provider to review and approve the medication order if appropriate. Requested Prescriptions Pending Prescriptions Disp Refills FLUoxetine (PROzac) 20 MG Capsule [Pharmacy Med Name: FLUoxetine 20MG CAPSULE] 30 Capsule Sig: TAKE 1 CAPSULE BY MOUTH DAILY SSRI (6 Month Refill Only) Protocol Failed - 08/02/2022 1:38 PM Failed - Has an encounter in the past 6 months with a depression, anxiety, adjustment disorder, OCD, or PTSD visit diagnosis Passed - Visit with relevant provider in past 6 months or upcoming 90 days Recent Visits Date Type Provider Dept 06/27/22 Office Visit Cheryl Blackwell, GABRIEL, PHYSICAL SECURITY SPECIALIST [facility] 04/04/22 Office Visit Damaso Vazquez MD [facility] 03/21/22 Office Visit Damaso Vazquez MD [facility] Showing recent visits within past 182 days and meeting all other requirements Future Appointments Date Type Provider Dept 09/26/22 Appointment Damaso Vazquez MD [facility] Showing future appointments within next 90 days and meeting all other requirements Passed - Patient has established therapy with SSRI for at least 6 months documented in this encounter Plan of Treatment Upcoming Encounters Date Type Department Care Team (Latest Contact Info) Description 03/03/2025 10:00 AM PERFUSIONIST Office Visit [facility] - Orthopedic Surgery - [place] #2 [place] [address] Homer Alcala MD #[address] [address] Ann Graham MD #[address] [address] 03/04/2025 2:00 PM PERFUSIONIST Office Visit [facility] - Cardiology - [place] #2 [place] [address] Homer Alcala MD #[address] [address] Carolin Sykes APRN, PHYSICAL SECURITY SPECIALIST [address] [address] 03/19/2025 10:15 AM PERFUSIONIST Physical Therapy [facility] at [facility] [address] [address] Sujata Winn, SPARE PERSON, PHYSICAL SECURITY SPECIALIST [address] [place] [address] Michelle Patel, PT [place] Discharge Disposition: Discharged to home or Selfcare 03/21/2025 1:30 PM PERFUSIONIST Office Visit [facility] Neurology [facility] #2 [place] [address] Ayala Weaver, SPARE PERSON, GROUND SERVICES INSTRUCTOR #2 [place] [address] 04/29/2025 9:00 AM PERFUSIONIST Office Visit [facility] Neurology - [place] #2 [place] [address] Ayala Weaver, SPARE PERSON, GROUND SERVICES INSTRUCTOR #2 [place] [address] 05/09/2025 11:00 AM PERFUSIONIST Office Visit [facility] Pulmonology & Sleep Medicine [facility] #2 [place] [address] Saurav Goyal MD #2 [place] [address] documented as of this encounter Goals Goal Patient Goal Type Associated Problems Recent Progress Patient-Stated? Author Depression Behavioral Health On track(2024 4:40 PM CDT) Flora Miller, AIRCRAFT ELECTRICIAN Note: GOAL: Lisseth will manage depressive symptoms [...] 19 04/05/2024 04/05/2024 04/05/2024 12:3 5 PM PERFUSIONIST COVID - 19 05/19/2024 05/19/2024 05/19/2024 6:18 PM CDT Assessment Noted Time PHQ-9 Depression Total Score: 1 01/12/20 19 5:00 PM PERFUSIONIST documented as of this encounter Care Teams Cloth Stock Sorter Relationship Specialty Start Date End Date Damaso Vazquez MD PCP - General Family Medicine 05/28/20 08/31/23 Homer Alcala MD #[address] [address] PCP - General Family Medicine 09/01/23 Yuliana Florez APN Advanced Practice Nurse 01/24/18 Michel Yanez, SPARE PERSON, PHYSICAL SECURITY SPECIALIST #2 [place] [address] Nurse Practitioner Advanced Practice Nurse 12/28/21 Laureano [facility]igley MD #2 [email or web address] [address] [place] [address] Consulting Physician Urology 02/04/22 Elsa Kenny, SPARE PERSON, PHYSICAL SECURITY SPECIALIST #2 [facility] [place] [facility], [facility] [address] [place] [address] Nurse Practitioner Cardiology 07/14/23 09/17/24 Saurav Goyal MD #2 [place] [address] Consulting Physician Pulmonary Disease 07/28/23 Yuni Meneses, [facility] Wire Photo Operator News Barrel Maker 11/27/23 12/04/23 Ayala Weaver, SPARE PERSON, GROUND SERVICES INSTRUCTOR #2 [place] [address] Nurse Practitioner Neurology 12/18/23 documented as of this encounter
--- OUTSIDE RECORDS SUMMARY | 2025-02-22 12:14 | XMS_ITS | Encounter Summary ---
Author Organization [facility] Address [address] [place] [address] Phone Care Team Providers Care Sewing Machine Operator Floorperson Name Role Phone Yuliana Florez APN Unavailable Unavailab Damaso Chaudhari MD Primary Care Provider Michel Yanez APRN, SOCIAL SCIENCES LECTURER Unavailable [phone] Laureano Quigley MD Unavailable [phone] Elsa Kenny APRN, SOCIAL SCIENCES LECTURER Unavailable + [phone] Saurav Goyal MD Unavailable Homer Alcala MD Primary Care Provider [phone] Yuni Meneses CATERERS HELPER Unavailable Unavailab Ayala Orozco APRN, PICKET LABOR UNION Unavailable + [phone] Reason for Visit * Reason Comments Medication Refill Encounter Details Date Type Department Care Team (Late st Contact Info) Description 09/23/2021 Refill [facility] Medicine - [place] [address] [place] [address] Damaso Vazquez MD #[address] [place] [address] Medication Refill Social History Tobacco Use Types [...] 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 Requested Prescriptions Pending Prescriptions Disp Refills buPROPion (WELLBUTRIN) 300 MG TABLET SR 24 HR XL tablet [Pharmacy Med Name: BUPROPION HYDROCHLORIDEER (XL) 300MG XL TABLET ER 24HR] 30 Tablet 3 Sig: TAKE ONE (1) TAB BY MOUTH EVERY MORNING. Bupropion (6 Month Refill Only) Protocol Passed - 09/23/2021 9:06 AM Passed - Visit with relevant provider [...] BY MOUTH DAILY ARB Protocol Failed - 09/23/2021 9:06 AM Failed - Serum potassium on record [...] [place] 05/04/21 Office Visit Damaso Vazquez MD [facility] [...] (Latest Contact Info) Description 03/03/2025 10:00 AM COMMUNICATIONS TECHNOLOGIST Office Visit [facility] - [facility]opedic Surgery - [place] [address] [place] [address] Homer Alcala MD #2 [facility] [address] [place] [address] Ann Graham MD #2 [place] [facility] [address] [place] [address] 03/04/2025 2:00 PM COMMUNICATIONS TECHNOLOGIST [facility] [place] #2 [place] [address] Homer Alcala MD #2 [facility] [address] [place] [address] Carolin Sykes APRN, SOCIAL SCIENCES LECTURER 2 [facility] 305 [place] [address] 03/19/2025 10:15 AM COMMUNICATIONS TECHNOLOGIST [facility] 200 [facility], [facility] H1 [place] [address] Sujata Winn, WALLPAPER SCRAPER, SOCIAL SCIENCES LECTURER [address] [place] [address] Michelle Patel, PT [place] Discharge Disposition: Discharged to home or Selfcare 03/21/2025 1:30 PM COMMUNICATIONS TECHNOLOGIST Office Visit [facility] - Neurology - [place] #2 [place] [address] Ayala Weaver APRN, PICKET LABOR UNION #2 [place] [address] 04/29/2025 9:00 AM COMMUNICATIONS TECHNOLOGIST Office Visit [facility] - Neurology - [place] #2 [place] [address] Ayala Weaver APRN, PICKET LABOR [place] #2 [place] [address] 05/09/2025 11:00 AM COMMUNICATIONS TECHNOLOGIST Office Visit [facility] - Pulmonology & Sleep Medicine - [place] #2 [place] [address] Saurav Goyal MD #2 [place] [address] documented as of this encounter Goals Goal Patient Goal Type Associated Problems Recent Progress Patient-Stated? Author Depression Behavioral Health On track(2024 4:40 PM CDT) No Flora Yip LCSW Note: GOAL: Lisseth will manage depressive symptoms more effectively. Goal Reviewed with: patient today Readiness to change: Ready to change Department associated with goal: [facility]IOR[facility] Steps to [...] to change Department associated with goal: [facility] Steps to [...] 19 04/05/2024 04/05/2024 04/05/2024 12:3 5 PM COMMUNICATIONS TECHNOLOGIST COVID - 19 05/19/2024 05/19/2024 05/19/2024 6:18 PM CDT Assessment Noted Time PHQ-9 Depression Total Score: 1 01/12/20 19 5:00 PM COMMUNICATIONS TECHNOLOGIST documented as of this encounter Care Teams Sewing Machine Operator Floorperson Relationship Specialty Start Date End Date Damaso Vazquez MD PCP - General Family Medicine 05/28/20 08/31/23 Homer Alcala MD #2 [facility] [address] [place] [address] PCP - General Family Medicine 09/01/23 Yuliana Florez, LOGISTICS SUPERVISOR Advanced Practice Nurse 01/24/18 Michel Yanez, WALLPAPER SCRAPER, SOCIAL SCIENCES LECTURER #2 [place] [address] Nurse Practitioner Advanced Practice Nurse 12/28/21 Laureano Quigley MD #2 [facility] [address] [place] [address] Consulting Physician Urology 02/04/22 Elsa Kenny, WALLPAPER SCRAPER, SOCIAL SCIENCES LECTURER #2 [facility] [address] [place] [address] Nurse Practitioner Cardiology 07/14/23 09/17/24 Saurav Goyal MD #2 [place] [address] Consulting Physician Pulmonary Disease 07/28/23 Yuni Meneses, [facility] Truck Assembler Business Account Executive 11/27/23 12/04/23 Ayala Weaver, WALLPAPER SCRAPER, PICKET LABOR UNION #2 [place] [address] Nurse Practitioner Neurology 12/18/23 documented as of this encounter
--- OUTSIDE RECORDS SUMMARY | 2025-02-22 12:14 | XMS_ITS | Encounter Summary ---
Author Organization [facility] Address [address] [place] [address] Phone Care Team Providers Care Digital Content Marketing Manager Name Role Phone Yuliana Florez APN Unavailable Unavailab Damaso Chaudhari MD Primary Care Provider [phone] Michel Yanez APRN, PINION SORTER Unavailable [phone] Laureano Quigley MD Unavailable [phone] Elsa Kenny APRN, PINION SORTER Unavailable + [phone] Saurav Goyal MD Unavailable Homer Alcala MD Primary Care Provider [phone] Yuni Meneses HOME SUPPORT WORKER Unavailable Unavailab Ayala Orozco APRN, PACKAGING MATERIALS INSPECTOR Unavailable + [phone] Reason for Visit * Reason Comments Medication Refill Encounter Details Date Type Department Care Team (Late st Contact Info) Description 05/12/2022 Refill [facility] [place] [address] Damaso Vazquez MD #1 [place] [address] Medication Refill Social History Tobacco Use Types [...] 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 Requested Prescriptions Pending Prescriptions Disp Refills Ozempic, 0.25 or 0.5 MG/DOSE, 2 MG/1.5ML Solution Pen-injector [Pharmacy Med Name: OZEMPIC 2MG/1.5ML INJECTION] 1.5 mL 0 Sig: INJECT 0.25 MG BY SUBCUTANEOUS ROUTE ONCE A WEEK. TAKE FOR ONE MONTH AND THEN CALL FOR NEXT DOSE. GLP-1 Agonists Protocol Failed - 05/12/2022 4:33 PM Failed - Lipid panel result on file in past 12 months LDL Date Value Ref Range Status 04/19/2022 64 0 - 130 mg/dL Final HDL CHOLESTEROL Date [...] Status 06/04/2020 270.7 (H) <130 mg/dL Final Failed - GFR on record in past 6 months GFR, EST. NONAFRICAN Date Value Ref Range Status 06/04/2020 >60 >=60 Final Passed - Visit with relevant provider in past 6 months or upcoming 90 days Recent Visits Date Type Provider Dept 04/04/22 Office Visit Damaso Vazquez MD [facility] 03/21/22 Office Visit Damaso Vazquez MD [facility] Showing recent visits within past 182 days and meeting all other requirements Future Appointments No visits were found meeting these conditions. Showing future appointments within next 90 days and meeting all other requirements Passed - HgA1C result on record in past 6 months HGB-A1C Date Value Ref Range Status 02/09/2022 6.0 % Final DE CHANNEL ACCOUNT MANAGER documented in this encounter Plan of Treatment Upcoming Encounters Date Type Department Care Team (Latest Contact Info) Description 03/03/2025 10:00 AM INSIDE CHANNEL ACCOUNT MANAGER Office Visit [facility] - Orthopedic Surgery - [place] #2 [place] [address] Homer Alcala MD #2 [facility] 205 [place] [address] Ann Graham MD #2 [facility] 305 [place] [address] 03/04/2025 2:00 PM INSIDE CHANNEL ACCOUNT MANAGER Office Visit [facility] Medical [facility] - Cardiology - [place] #2 [place] [address] Homer Alcala MD #2 [facility] 205 [place] [address] Carolin Sykes APRN, PINION SORTER 2 [facility] 305 [place] [address] 03/19/2025 10:15 AM INSIDE CHANNEL ACCOUNT MANAGER [facility] 200 [facility], [facility] H1 [place] [address] Sujata Winn, SENIOR ORACLE DATABASE ADMINISTRATOR, PINION SORTER [address] [place] [address] Michelle Patel, PT [place] Discharge Disposition: Discharged to home or Selfcare 03/21/2025 1:30 PM INSIDE CHANNEL ACCOUNT MANAGER [facility] [place] [facility]2 [place] [address] Ayala Weaver APRN, PACKAGING MATERIALS INSPECTOR #2 [place] [address] 04/29/2025 9:00 AM INSIDE CHANNEL ACCOUNT MANAGER [facility] [place] #2 [place] [address] Ayala Weaver APRN, PACKAGING MATERIALS INSPECTOR #2 [place] [address] 05/09/2025 11:00 AM INSIDE CHANNEL ACCOUNT MANAGER [facility] - [place] #2 [place] [address] Saurav Goyal MD #2 [place] [address] documented as of this encounter Goals Goal Patient Goal Type Associated Problems Recent Progress Patient-Stated? Author Depression Behavioral Health On track(2024 4:40 PM CDT) Flora Miller LCSW Note: GOAL: Lisseth will manage depressive symptoms more effectively. Goal Reviewed with: patient today Readiness to change: Ready to change Department associated with goal: [facility] BE[facility]AVIORAL HEALTH SERVICES Steps to [...] change Department associated with goal: [facility] BE[facility]AVIORAL HEALTH SERVICES Steps to [...] 19 04/05/2024 04/05/2024 04/05/2024 12:3 5 PM INSIDE CHANNEL ACCOUNT MANAGER COVID - 19 05/19/2024 05/19/2024 05/19/2024 6:18 PM CDT Assessment Noted Time PHQ-9 Depression Total Score: 1 01/12/20 19 5:00 PM INSIDE CHANNEL ACCOUNT MANAGER documented as of this encounter Care Teams Digital Content Marketing Manager Relationship Specialty Start Date End Date Damaso Vazquez MD PCP - General Family Medicine 05/28/20 08/31/23 Homer Alcala MD #2 [facility] 205 [place] [address] PCP - General Family Medicine 09/01/23 Yuliana Florez, SHOE IRONER Advanced Practice Nurse 01/24/18 Michel Yanez, SENIOR ORACLE DATABASE ADMINISTRATOR, PINION SORTER #2 [place] [address] Nurse Practitioner Advanced Practice Nurse 12/28/21 Laureano Quigley MD #2 [facility] [address] [place] [address] Consulting Physician Urology 02/04/22 Elsa Kenny, SENIOR ORACLE DATABASE ADMINISTRATOR, PINION SORTER #2 [facility] 305 [place] [address] Nurse Practitioner Cardiology 07/14/23 09/17/24 Saurav Goyal MD #2 [place] [address] Consulting Physician Pulmonary Disease 07/28/23 Yuni Meneses, [facility] Automotive Service Professional Optoelectronics Engineer 11/27/23 12/04/23 Ayala Weaver, SENIOR ORACLE DATABASE ADMINISTRATOR, PACKAGING MATERIALS INSPECTOR #2 [place] [address] Nurse Practitioner Neurology 12/18/23 documented as of this encounter
--- OUTSIDE RECORDS SUMMARY | 2025-02-22 12:14 | XMS_ITS | Clinical Summary ---
Author Organization [facility] Address [address] [place] [address] Phone Care Team Providers Care Floor Coverer Apprentice Name Role Phone XUAN ISABEL, EULALIA Goodman Unavailable [phone] STACEY SANTOS CNP, KELLY A Primary Care Provider [phone] Reason for Visit and Chief Complaint * PHONE CALL Plan of Treatment No Plan of Treatment Recorded Assessments Includes: Assessments from this encounter No Assessments Recorded Medical Equipment - Implanted Devices Includes: Current Devices No Medical Equipment Recorded Medications Includes: Medications discussed during this encounter and other current Medications New / Renewed during this visit EULALIA ISABEL on 03/08/2023 Cyclobenzaprine HCl 5 MG Ora l Tablet Provider: EULALIA ISABEL 30 day supply: 60 tablet, 0 refills Diagnosis: 1-2 po qhs prn Pharmacy: [address], [address] - Last Documented On 4 10:49AM By EULALIA ISABEL ; [facility] Current Medications (continue as prescribed) HYDROcodone-Acetaminophen 7. 5-325 MG Oral Tablet 04/17/2023 Provider: EULALIA ISABEL Diagnosis: Other spondylosi s with radiculopathy, lumbar region 1 BY MOUTH TWICE DAILY NEEDED Last Documented On 4 8:11AM By EULALIA ISABEL ; [facility] Cyclobenzaprine HCl 5 MG Oral Tablet 04/11/2023 Prov ider: EULALIA GOVEA [facility] Diagnosis: ONE (1) TO TWO (2) BY MOUTH EVERY NIGHT AT BEDTIME NEEDED Last Documented On 4 10:49AM By EULALIA GOVEA [facility] ; [facility] Pregabalin 100 MG Oral Capsule 02/20/2023 Provider: EULALIA MARIE [facility] Diagnosis: Chronic pain syn drome 1 CAPSULE TWO TIMES A DAY Last Documented On 1:55PM By EULALIA GOVEA [facility] ; [facility] FLUoxetine HCl 20 MG Oral Capsule 09/26/2022 Provide r: LB DENIS NP Diagnosis: Last Documented On 10/06/2022 4:20PM By Vilma BENTON ; [facility] Levothyroxine Sodium 88 MCG Oral Tablet 07/25/2022 P nikkider: Diagnosis: Last Documented On 07/28/2022 4:14PM By Vilma BENTON ; [facility] Losartan Potassium 50 MG Oral Tablet 07/18/2022 Prov ider: WALESKA GOYAL MD Diagnosis: Last Documented On 07/28/2022 4:15PM By Vilma BENTON ; [facility] buPROPion HCl ER (XL) 300 MG Oral Tablet Extended Release 24 Hour 07/12/2022 Provider: WALESKA GOYAL MD Diagnosis: Last Documented On 07/28/2022 4:13PM By Vilma BENTON ; [facility] Amphetamine-Dextroamphet ER 20 MG Oral Capsule Extended Release 24 Hour 07/11/2022 Provider: WALESKA GOYAL MD Diagnosis: Last Documented On 07/28/2022 4:16PM By Vilma BENTON ; [facility] Ondansetron HCl 4 MG Oral Tablet 07/07/2022 Provider : WALESKA GOYAL MD Diagnosis: Last Documented On 07/12/2022 4:27PM By Vilma BENTON ; [facility] Desvenlafaxine Succinate ER 100 MG Oral Tablet Extended Release 24 Hour 07/01/2022 Provider: WALESKA GOYAL MD Diagnosis: Last Documented On 07/28/2022 4:14PM By Vilma BENTON ; [facility] Pantoprazole Sodium 40 MG Or al Tablet Delayed Release 06/15/2022 Provider: WALESKA GOYAL MD Diagnosis: Last Documented On 07/12/2022 4:28PM By Vilma BENTON ; [facility] Narcan 4 MG/0.1ML Nasal Liquid 08/06/2020 Provider: EULALIA GOVEA [facility] Diagnosis: halfway (curre nt) use of 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 as directed Last Documented On 3 4:33PM By ANJU MARRUFO [facility] ; [facility] Medications Administered Includes: Administered Medications from this encounter No Administered Medications Recorded Results Includes: Results discussed during this encounter No Results Recorded For Specified Dates History of Present Illness Includes: History of Present Illness from this encounter HPI Pharmacy name:~location:[facility]. Social History Description Last Updated Former smoker 04/13/2023 Last Documented On 4 10:51AM ; [facility] Smoker 09/10/2019 Last Documented On 4 10:51AM ; [facility] Smoking status : Current everyday smoker 03/20/2019 Last Documented On 4 10:51AM ; [facility] 10/18/2018 Last Documented On 4 10:51AM ; [facility] Medical History Includes: Medical History addressed during this encounter Description Last Updated Has had a fall in the last 12 months. Last Documented On 4 10:51AM ; [facility] Reviewed and Unchanged 05/02/2019 Last Documented On 4 10:51AM ; [facility] 0 miscarriage(s) 10/18/2018 Last Documented On 4 10:51AM ; [facility] Currently wearing eyeglasses 10/18/2018 Last Documented On 4 10:51AM ; [facility] Previously 2 time(s) 10/18/2018 Last Documented On 4 10:51AM ; [facility] History of hypertension 10/18/2018 Last Documented On 4 10:51AM ; [facility] Surgery back surgery 2012 10/18/2018 Last Documented On 4 10:51AM ; [facility] Family History Includes: Family History addressed during [...] Active Last Documented On 4 4:26PM ; [facility] Levaquin Allergy 10/08/2020 Active Last Documented On 4 4:26PM ; [facility] Encounters Encounter Provider Location Date Check-In Time Check-Out Time Diagnosis * PHONE CALL EULALIA ISABEL 03/08/2023 10:51AM 11:59PM Insurance Includes: Active Insurance Policies Plan Name Member ID Group # Subscriber Relationship Effect chelle Dates 1 - MEDICAID [place] [facility] [id number] RITO FUENTES Self Clinical Notes Includes: Clinical Notes from this encounter * Progress note Date Encounter Last Documented by 03/08/2023 * PHONE CALL Last documented on 03/08/2023; 12:56 PM, EULALIA ISABEL; [facility] Chief Complaint Phone Call - Chief Concern: reason for call:pt wanted you to know that she has appt with [facility] [place] had MRI done at [facility], would also like to know if she can have some muscle relaxers for sleep pt phone # for return call:[phone] date/initials:03/08/23, kms. History of Present Illness Pharmacy name:~location:[facility]. Past Medical/Surgical History Reported: Surgery back surgery [...] bed time 30 days, 0 refills - Desvenlafaxine Succinate ER 100 MG Oral Tablet Extended Release 24 Hour One tablet daily 30 days, 0 refills - FLUoxetine HCl 20 MG Oral Capsule 1 capsule daily 30 days, 0 refills - HYDROcodone-Acetaminophen 7.5-325 MG Oral Tablet 1 po bid prn, 15 days, 0 refills - Levothyroxine Sodium 88 [...] Eruption of skin Plan StartCited - Other Cyclobenzaprine HCl 5 MG tablet 1-2 po qhs prn, 30 days, 0 refills EndCited Care Team - CYNTHIA CRABTREE- - Pain Management Health Reminders - Assess Tobacco Use satisfied 03/08/2023.
--- OUTSIDE RECORDS SUMMARY | 2025-02-22 12:15 | XMS_ITS | Patient Health Record ---
Author Organization [facility] Address [address] [place], [place] [address] Phone [phone] Care Team Providers Care Utility Tech Name Role Phone Peterson Reynolds [phone] Allergies Allergen (clinical drug ingredient) Drug/Non Drug Allergy documented on EMR Reaction Allergy Type Onset Date Status tetracycline tetracycline Unknown Drug Allergy A ctive Reason For Referral No Information Medications Medication SIG (Take, Route, Frequency, Duration) Notes Start Date End Date Diagnosis (ICD Code) Status losartan 1 tab once a day Active Lyrica 200 mg capsule orally twice a day Active levothyroxine Active metoprolol Active Pristiq 100 mg tablet, extended release tab(s) orally once a day Active Protonix 40 mg delayed release tablet 1 tab(s) orally once a day Active meloxicam Active lisinopril Not-Taking nabumetone 500 mg tablet 2 tab(s) orally once a day; Duration: 30 day(s) 04/06/2018 Active Social History Tobacco Use: Social History Observation Description Date Details (start date - stop date) Current Smoker NA - NA Sex Observation Social History Observation Description Sex Observation Female Social History Social History Social Info Question Answer Notes Tobacco Use: Smoking Status current smoker Additional Details Category Social Info Options Details Social History 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 boyfriend , son Marital Status How many times have you been ? 2 Living accomodations: house Problems Problem Type SNOMED Code ICD Code Dates Problem Status W/U Status Risk Notes Problem Fibromyalgia (926501688) Fibromyalgia (M79.7) Added On:02/23 Active confirmed Problem Degeneration of lumbar intervertebral disc (88122990) Degenerative disc disease, lumbar (M51.36) Added On:02/23 Active confirmed Problem Joint pain (53703608) Arthralgia of multiple sites (M25.50) Added On:02/23 Active confirmed Problem History of musculoskeletal disease (790287910) Hx of systemic lupus erythematosus (SLE) (Z87.39) Added On:02/23 Active confirmed Plan Of Treatment No Information Medical (General) History Medical History History ICD Code bruises easily migraine headache blurred vision neuropathy depression tension headaches Ringing in ears sinus problems dizziness thyroid disease anxiety chest pain diarrhea gas Hot Flashes high blood pressure chronic cough bloating constipation irritable bowel syndrome Nausea stomach pain/cramps frequent urination lupus degenerative disc disease osteopenia osteoarthritis Surgical History Surgery Date(Month/Year) Back surgery 2009
--- OUTSIDE RECORDS SUMMARY | 2025-02-22 12:15 | XMS_ITS | Encounter Summary ---
Author Organization [facility] Address [address] [place] [address] Phone Care Team Providers Care Sow Farm Manager Name Role Phone Yuliana Florez APN Unavailable Unavailab Damaso Chaudhari MD Primary Care Provider [phone] Michel Yanez APRN, HELICOPTER PILOT INSTRUCTOR Unavailable [phone] Laureano Quigley MD Unavailable [phone] Elsa Kenny APRN, HELICOPTER PILOT INSTRUCTOR Unavailable [phone] Saurav Goyal MD Unavailable Homer Alcala MD Primary Care Provider [phone] Yuni Meneses AUTOMOBILE BODY REPAIR SUPERVISOR Unavailable Unavailab Ayala Orozco APRN, POST COMMANDER Unavailable + [phone] Reason for Visit * Reason Comments Medication Refill Encounter Details Date Type Department Care Team (Late st Contact Info) Description 05/04/2023 Refill [facility] - Family Medicine - [place] [address] [place] [phone] Damaso Vazquez MD [address] [place] [address] Medication Refill Social History Tobacco Use Types [...] 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 NESS SERVICES ANALYST documented in this encounter Plan of Treatment Upcoming Encounters Date Type Department Care Team (Latest Contact Info) Description 03/03/2025 10:00 AM BUSINESS SERVICES ANALYST Office Visit [facility] Medical [facility] - Orthopedic Surgery - [place] [address] [place] [address] Homer Alcala MD #2 [facility] [address] [place] [address] Ann Graham MD #2 [facility] [address] [place] [address] 03/04/2025 2:00 PM BUSINESS SERVICES ANALYST Office Visit [facility] - Cardiology - [place] [address] [place] [address] Homer Alcala MD #2 [facility] [address] [place] [address] Carolin Sykes, ASSET PROTECTION ASSISTANT, HELICOPTER PILOT INSTRUCTOR 2 [facility] [address] [place] [address] 03/19/2025 10:15 AM BUSINESS SERVICES ANALYST Physical Therapy [facility] at [facility] [address] [facility] [address] [place] [address] Sujata Winn, ASSET PROTECTION ASSISTANT, HELICOPTER PILOT INSTRUCTOR [address] [place] [address] Michelle Patel, PT [place] Discharge Disposition: Discharged to home or Selfcare 03/21/2025 1:30 PM BUSINESS SERVICES ANALYST [facility] [place] [address] [place] [address] Ayala Weaver APRN, POST COMMANDER [address] [place] [address] 04/29/2025 9:00 AM BUSINESS SERVICES ANALYST [facility] [place] [address] [place] [address] Ayala Weaver APRN, POST COMMANDER [address] [place] [address] 05/09/2025 11:00 AM BUSINESS SERVICES ANALYST [facility] - [place] [address] [place] [address] Saurav Goyal MD [address] [place] [address] documented as of this encounter Goals Goal [...] 19 04/05/2024 04/05/2024 04/05/2024 12:3 5 PM BUSINESS SERVICES ANALYST COVID - 19 05/19/2024 05/19/2024 05/19/2024 6:18 PM CDT Assessment Noted Time PHQ-9 Depression Total Score: 1 01/12/20 19 5:00 PM BUSINESS SERVICES ANALYST documented as of this encounter Care Teams Sow Farm Manager Relationship Specialty Start Date End Date Damaso Vazquez MD PCP - General Family Medicine 05/28/20 08/31/23 Homer Alcala MD #2 [facility] [address] [place] [address] PCP - General Family Medicine 09/01/23 Yuliana Florez, SENIOR UNDERWRITER Advanced Practice Nurse 01/24/18 Michel Yanez APRN, HELICOPTER PILOT INSTRUCTOR [address] [place] [address] Nurse Practitioner Advanced Practice Nurse 12/28/21 Laureano Quigley MD #2 [facility] [address] [place] [address] Consulting Physician Urology 02/04/22 Elsa Kenny ASSET PROTECTION ASSISTANT, HELICOPTER PILOT INSTRUCTOR #2 [facility] [address] [place] [address] Nurse Practitioner Cardiology 07/14/23 09/17/24 Saurav Goyal MD [address] [place] [address] Consulting Physician Pulmonary Disease 07/28/23 Yuni Meneses, AUTOMOBILE BODY REPAIR SUPERVISORFLOATING HOSPITAL FOR CHILDREN Power Generation Equipment Repairer Pricing Manager 11/27/23 12/04/23 Ayala Weaver, ASSET PROTECTION ASSISTANT, POST COMMANDER [address] [place] [address] Nurse Practitioner Neurology 12/18/23 documented as of this encounter
--- OUTSIDE RECORDS SUMMARY | 2025-02-22 12:15 | XMS_ITS | Encounter Summary ---
Author Organization [facility] Address [address] [place] [address] Phone Care Team Providers Care Ditch Worker Name Role Phone Yuliana Florez APN Unavailable Unavailab Damaso Chaudhari MD Primary Care Provider [phone] Michel Yanez APRN, VIBRATING SCREED OPERATOR Unavailable [phone] Laureano Quigley MD Unavailable [phone] Elsa Kenny APRN, VIBRATING SCREED OPERATOR Unavailable + [phone] Saurav Goyal MD Unavailable Homer Alcala MD Primary Care Provider [phone] Yuni Meneses ASSISTANT PASTRY CHEF Unavailable Unavailab Ayala Orozco APRN, AIRLINE LOUNGE RECEPTIONIST Unavailable + [phone] Reason for Visit * Reason Comments Medication Refill Encounter Details Date Type Department Care Team (Late st Contact Info) Description 09/09/2022 Refill [facility] - [facility] [place] [address] [place] [address] Damaso Vazquez MD #1 [place] [address] Medication Refill Social History Tobacco Use Types [...] 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 No / Unsure 08/29/2022 7:20 AM CDT documented as of this encounter Miscellaneous Notes * Telephone Encounter - Darline Seth RN - 09/09/2022 1:22 PM CDT Medication failed the protocol, provider to review and approve the medication order if appropriate. Requested Prescriptions Pending Prescriptions Disp Refills losartan (COZAAR) 50 MG Tablet [Pharmacy Med Name: LOSARTAN POTASSIUM 50MG TABLET] 30 Tablet 5 Sig: TAKE 1 TABLET BY MOUTH DAILY ARB Protocol Failed - 09/09/2022 7:49 AM Failed - Serum potassium on record in past 12 months No results found for: POTASSIUM, POCTK Failed - GFR on record in past 12 months No results found for: GFRNA Passed - BP on record in the past year Clinician-entered: BP Readings from Last 3 Encounters: 06/27/22 108/62 04/04/22 124/76 03/21/22 110/62 Patient-entered: No data recorded Passed - Visit with relevant provider in past year or upcoming 90 days Recent Visits Date Type Provider Dept 08/29/22 Telemedicine [facility] [place] 06/27/22 Office Visit Cheryl Blackwell APRN, VIBRATING SCREED OPERATOR [facility] 04/04/22 Office Visit [facility] [place] 03/21/22 Office Visit Damaso Vazquez MD [facility] Kj Showing recent visits within past 365 days and meeting all other requirements Future Appointments Date Type Provider Dept 09/26/22 Appointment Damaso Vazquez, [facility] Kj Showing future appointments within next 90 days and meeting all other requirements documented in this encounter Plan of Treatment Upcoming Encounters Date Type Department Care Team (Latest Contact Info) Description 03/03/2025 10:00 AM INDUSTRIAL SERVICE TECHNICIAN Office Visit [facility] Medical [facility] - Orthopedic Surgery - [place] [address] [place] [address] Homer Alcala MD #[address] [address] Ann Graham MD #[address] [address] 03/04/2025 2:00 PM INDUSTRIAL SERVICE TECHNICIAN Office Visit [facility] Medical [facility] - Cardiology - [place] #2 [place] [address] Homer Alcala MD #[address] [address] Carolin Sykes APRN, VIBRATING SCREED OPERATOR [address] [address] 03/19/2025 10:15 AM INDUSTRIAL SERVICE TECHNICIAN Physical Therapy [facility] Rehab at [facility] 200 [facility], [place] [address] [phone] Sujata Winn, HANDTOOLS REPAIRER, VIBRATING SCREED OPERATOR [address] [place] [address] Michelle Patel, PT [place] Discharge Disposition: Discharged to home or Selfcare 03/21/2025 1:30 PM INDUSTRIAL SERVICE TECHNICIAN Office Visit [facility] #[address] [place] [address] Ayala Weaver APRN, AIRLINE LOUNGE RECEPTIONIST #[address] [place] [address] 04/29/2025 9:00 AM INDUSTRIAL SERVICE TECHNICIAN Office Visit [facility] [address] [place] [address] Ayala Weaver APRN, AIRLINE LOUNGE RECEPTIONIST #[address] [place] [address] 05/09/2025 11:00 AM INDUSTRIAL SERVICE TECHNICIAN Office Visit [facility] Pulmonology & Sleep Medicine [facility] [address] [place] [address] Saurav Goyal MD #[address] [place] [address] documented as of this encounter Goals Goal Patient Goal Type Associated Problems Recent Progress Patient-Stated? Author Depression Behavioral Health On track(2024 4:40 PM CDT) Flora Miller, DRY DRUG WORKER Note: GOAL: Lisseth will manage depressive symptoms more effectively. Goal Reviewed with: patient today Readiness to change: Ready to change Department associated with goal: [facility] Steps to achieve [...] On track(2024 4:40 PM CDT) Flora Miller, DRY DRUG WORKER Note: GOAL: Lisseth will process feelings of grief and loss related to her son. Goal Reviewed with: patient today Readiness to change: Ready to change Department associated with goal: [facility] Steps to achieve [...] 19 04/05/2024 04/05/2024 04/05/2024 12:3 5 PM INDUSTRIAL SERVICE TECHNICIAN COVID - 19 05/19/2024 05/19/2024 05/19/2024 6:18 PM CDT Assessment Noted Time PHQ-9 Depression Total Score: 1 01/12/20 19 5:00 PM INDUSTRIAL SERVICE TECHNICIAN documented as of this encounter Care Teams Ditch Worker Relationship Specialty Start Date End Date Damaso Vazquez MD PCP - General Family Medicine 05/28/20 08/31/23 Homer Alcala MD #[address] [facility] [address] [place] [address] PCP - General Family Medicine 09/01/23 Yuliana Florez CLASSIFIER OPERATOR Advanced Practice Nurse 01/24/18 Michel Yanez, HANDTOOLS REPAIRER, VIBRATING SCREED OPERATOR #[address] [place] [address] Nurse Practitioner Advanced Practice Nurse 12/28/21 Laureano Quigley MD #[address] [facility] [address] [place] [address] Consulting Physician Urology 02/04/22 Elsa Kenny, HANDTOOLS REPAIRER, VIBRATING SCREED OPERATOR #2 [facility] [address] [place] [address] Nurse Practitioner Cardiology 07/14/23 09/17/24 Saurav Goyal MD #[address] [place] [address] Consulting Physician Pulmonary Disease 07/28/23 Yuni Meneses, ASSISTANT PASTRY CHEF [place] [employer] Examiner Paralegal Supervisor 11/27/23 12/04/23 Ayala Weaver, HANDTOOLS REPAIRER, AIRLINE LOUNGE RECEPTIONIST [address] [place] [address] Nurse Practitioner Neurology 12/18/23 documented as of this encounter
--- OUTSIDE RECORDS SUMMARY | 2025-02-22 12:15 | XMS_ITS | Encounter Summary ---
Author Organization [facility] Address [address] [place] [address] Phone Care Team Providers Care Disease Management Nurse Name Role Phone Yuliana Florez APN Unavailable Unavailab Damaso Chaudhari MD Primary Care Provider [phone] Michel Yanez APRN, GLASS PULVERIZER EQUIPMENT OPERATOR Unavailable [phone] Laureano Quigley MD Unavailable [phone] Elsa Kenny APRN, GLASS PULVERIZER EQUIPMENT OPERATOR Unavailable + [phone] Saurav Goyal MD Unavailable Homer Alcala MD Primary Care Provider [phone] Yuni Meneses CAR WASH ATTENDANT AUTOMATIC Unavailable Unavailab Ayala Orozco APRN, TECHNICIAN PLANT AND MAINTENANCE Unavailable + [phone] Reason for Visit * Reason Comments Medication Refill Encounter Details Date Type Department Care Team (Late st Contact Info) Description 10/23/2022 Refill [facility] - Family Medicine - [place] [address] [place] [id number] Jourdan Jimenez, PUBLIC SPEAKING COACH, GLASS PULVERIZER EQUIPMENT OPERATOR [address] [facility] [address] [place] [address] Medication Refill Social History Tobacco Use Types [...] 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 No / Unsure 10/06/2022 4:57 PM CDT documented as of this encounter Miscellaneous Notes * Telephone Encounter - Darline Seth RN - 10/24/2022 3:16 PM CDT Medication failed the protocol, provider to review and approve the medication order if appropriate. Requested Prescriptions Pending Prescriptions Disp Refills FLUoxetine (PROzac) 20 MG Capsule [Pharmacy Med Name: FLUoxetine 20MG CAPSULE] 30 Capsule 1 Sig: TAKE 1 CAPSULE BY MOUTH DAILY SSRI (6 Month Refill Only) Protocol Failed - 10/23/2022 4:59 PM Failed - Has an encounter in the past 6 months with a depression, anxiety, adjustment disorder, OCD, or PTSD visit diagnosis Passed - Visit with relevant provider in past 6 months or upcoming 90 days Recent Visits Date Type Provider Dept 10/06/22 Office Visit Damaso Vazquez MD [facility] 08/29/22 [facility] Office Visit Cheryl Blackwell APRN, GLASS PULVERIZER EQUIPMENT OPERATOR [facility] Showing recent visits within past 182 days and meeting all other requirements Future Appointments Date Type Provider Dept 11/10/22 Appointment Damaso Vazquez MD [facility] Showing future appointments within next 90 days and meeting all other requirements Passed - Patient has established therapy with SSRI for at least 6 months documented in this encounter Plan of Treatment Upcoming Encounters Date Type Department Care Team (Latest Contact Info) Description 03/03/2025 10:00 AM MAINTENANCE INSTRUCTOR Office Visit [facility] - Orthopedic Surgery - [place] [address] [place] [address] Homer Alcala MD #2 [facility] [address] [place] [address] Ann Graham MD #[address] [address] 03/04/2025 2:00 PM MAINTENANCE INSTRUCTOR Office Visit [facility] - Cardiology - [place] [address] [place] [address] Homer Alcala MD #2 [facility] [address] [place] [address] Carolin Sykes APRN, GLASS PULVERIZER EQUIPMENT OPERATOR 2 [facility] [address] [place] [address] 03/19/2025 10:15 AM MAINTENANCE INSTRUCTOR Physical Therapy [facility] at [facility] [address] [address] Sujata Winn, PUBLIC SPEAKING COACH, GLASS PULVERIZER EQUIPMENT OPERATOR [address] [place] [address] Michelle Patel, PT [place] Discharge Disposition: Discharged to home or Selfcare 03/21/2025 1:30 PM MAINTENANCE INSTRUCTOR Office Visit [facility] Neurology [facility] [address] [place] [address] Ayala Weaver PUBLIC SPEAKING COACH, TECHNICIAN PLANT AND MAINTENANCE #2 [place] [address] 04/29/2025 9:00 AM MAINTENANCE INSTRUCTOR Office Visit [facility] Neurology [facility] [address] [place] [address] Ayala Weaver PUBLIC SPEAKING COACH, TECHNICIAN PLANT AND MAINTENANCE [address] [place] [address] 05/09/2025 11:00 AM MAINTENANCE INSTRUCTOR Office Visit [facility] Pulmonology & Sleep Medicine [facility] [address] [place] [address] Saurav Goyal MD #2 [place] [address] documented as of this encounter Goals Goal Patient Goal Type Associated Problems Recent Progress Patient-Stated? Author Depression Behavioral Health On track(2024 4:40 PM CDT) Flora Miller, HACK SAW OPERATOR Note: GOAL: Lisseth will manage depressive [...] 19 04/05/2024 04/05/2024 04/05/2024 12:3 5 PM MAINTENANCE INSTRUCTOR COVID - 19 05/19/2024 05/19/2024 05/19/2024 6:18 PM CDT Assessment Noted Time PHQ-9 Depression Total Score: 1 01/12/20 19 5:00 PM MAINTENANCE INSTRUCTOR documented as of this encounter Care Teams Disease Management Nurse Relationship Specialty Start Date End Date Damaso Vazquez MD PCP - General Family Medicine 05/28/20 08/31/23 Homer Alcala MD #[address] [address] PCP - General Family Medicine 09/01/23 Yuliana Florez APN Advanced Practice Nurse 01/24/18 Michel Yanez, PUBLIC SPEAKING COACH, GLASS PULVERIZER EQUIPMENT OPERATOR #2 [facility] [place] [address] Nurse Practitioner Advanced Practice Nurse 12/28/21 Laureano Quigley MD #[address] [facility] [address] [place] [address] Consulting Physician Urology 02/04/22 Elsa Kenny, PUBLIC SPEAKING COACH, GLASS PULVERIZER EQUIPMENT OPERATOR #2 [facility] [address] [place] [address] Nurse Practitioner Cardiology 07/14/23 09/17/24 Saurav Goyal MD #2 [place] [address] Consulting Physician Pulmonary Disease 07/28/23 Yuni Meneses, CAR WASH ATTENDANT [facility] Medical Dermatologist 11/27/23 12/04/23 Ayala Weaver, PUBLIC SPEAKING COACH, TECHNICIAN PLANT AND MAINTENANCE [address] [place] [address] Nurse Practitioner Neurology 12/18/23 documented as of this encounter
--- OUTSIDE RECORDS SUMMARY | 2025-02-22 12:15 | XMS_ITS | Encounter Summary ---
Author Organization [facility] Address [address] [place] [address] Phone Care Team Providers Care Embroidery Assistant Name Role Phone Yuliana Florez APN Unavailable Unavailab Damaso Chaudhari MD Primary Care Provider [phone] Michel Yanez APRN, STREETCAR OPERATOR Unavailable [phone] Laureano Quigley MD Unavailable [phone] Elsa Kenny APRN, STREETCAR OPERATOR Unavailable + [phone] Saurav Goyal MD Unavailable Homer Alcala MD Primary Care Provider [phone] Yuni Meneses BAGGER MEAT Unavailable Unavailab Ayala Orozco APRN, DOT COMPLIANCE COORDINATOR Unavailable + [phone] Reason for Visit * Reason Comments Medication Refill Encounter Details Date Type Department Care Team (Late st Contact Info) Description 05/18/2023 Refill [facility] - Family Medicine - [place] [address] [place] [phone] Damaso Vazquez MD #1 [place] [address] Medication Refill Social History Tobacco Use Types [...] 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 [address] [place] [address] Ann Graham MD #2 [facility] [address] [place] [address] 03/04/2025 2:00 PM PRODUCTION ADMINISTRATOR Office Visit [facility] - Cardiology - [place] [address] [place] [address] Homer Alcala MD #2 [facility] [address] [place] [address] Carolin Sykes APRN, STREETCAR OPERATOR 2 [facility] [address] [place] [address] 03/19/2025 10:15 AM PRODUCTION ADMINISTRATOR Physical Therapy [facility] at [facility] 200 [facility], [facility] [address] [place] [address] Sujata Winn, BULL GANG SUPERVISOR, STREETCAR OPERATOR [address] [place] [address] Michelle Patel, PT [place] Discharge Disposition: Discharged to home or Selfcare 03/21/2025 1:30 PM PRODUCTION ADMINISTRATOR [facility] [place] [address] [place] [address] Ayala Weaver APRN, DOT COMPLIANCE COORDINATOR #2 [place] [address] 04/29/2025 9:00 AM PRODUCTION ADMINISTRATOR [facility] [place] [address] [place] [address] Ayala Weaver APRN, DOT COMPLIANCE COORDINATOR #2 [place] [address] 05/09/2025 11:00 AM PRODUCTION ADMINISTRATOR [facility] - [place] [address] [place] [address] Saurav Goyal MD #[address] [place] [address] documented as of this encounter Goals Goal [...] 0 AM CDT COVID - 19 04/05/2024 04/05/202404/0504/05/2024 12:3 5 PM PRODUCTION ADMINISTRATOR COVID - 19 05/19/2024 05/19/2024 05/19/2024 6:18 PM CDT Assessment Noted Time PHQ-9 Depression Total Score: 1 01/12/20 19 5:00 PM PRODUCTION ADMINISTRATOR documented as of this encounter Care Teams Embroidery Assistant Relationship Specialty Start Date End Date Damaso Vazquez MD PCP - General Family Medicine 05/28/20 08/31/23 Homer Alcala MD #2 [facility] [address] [place] [address] PCP - General Family Medicine 09/01/23 Yuliana Florez, SECOND CHEF Advanced Practice Nurse 01/24/18 Michel Yanez BULL GANG SUPERVISOR, STREETCAR OPERATOR #2 [place] [address] Nurse Practitioner Advanced Practice Nurse 12/28/21 Laureano Quigley MD #2 [facility] [address] [place] [address] Consulting Physician Urology 02/04/22 Esla Kenny, BULL GANG SUPERVISOR, STREETCAR OPERATOR #2 [facility] [address] [place] [address] Nurse Practitioner Cardiology 07/14/23 09/17/24 Saurav Goyal MD #2 [place] [address] Consulting Physician Pulmonary Disease 07/28/23 Yuni Meneses, BAGGER [facility] [employer] [facility] 11/27/23 12/04/23 Ayala Weaver, BULL GANG SUPERVISOR, DOT COMPLIANCE COORDINATOR #[address] [place] [address] Nurse Practitioner Neurology 12/18/23 documented as of this encounter
[2025-02-22 12:16] VITALS: BP 129/78; PULSE 70; RESP 20; TEMP 36.8; O2SAT 98
--- NOTE | 2025-02-22 12:36 | ED_ITS ---
HPI - URI/Sore Throat General Chief Complaint: Upper Respiratory Infection Stated Complaint: Poss Sinus Problem Time Seen by Provider: 02/22/25 12:37 Source: patient, RN notes reviewed and old records reviewed Mode of arrival: ambulatory Limitations: no limitations History of Present Illness HPI Narrative: 54 year old female who presents to [facility] care with complaints of sinus pressure, sinus congestion, headache, some cough for the past 3 weeks. Patient reports that even her teeth hurt for the past few days. Patient reports that she has been on 2 different antibiotics for her symptoms with no improvement in her symptoms. Patient reports that she has been taking Tylenol and also has been using nasal saline for her sinus congestion, MD elicited complaint: cough, rhinorrhea, nasal congestion and sinus pain Onset (ago): week(s) (3) Pain scale (0-10): 8 Able to tolerate fluids by mouth: Yes Treatments prior to arrival: acetaminophen and other (nasal saline) Related Data Allergies Allergy/AdvReac Type Severity Reaction Status Date / Time levofloxacin (From Levaquin) Allergy Unknown Verified 02/22/25 12:26 morphine AdvReac Unknown makes her Verified 02/22/25 12:26 feel weird tetracycline AdvReac Unknown stomach Verified 02/22/25 12:26 pains Review of Systems Review of Systems: CONSTITUTIONAL: Reports malaise, no recent chills, sweats, or fever. EYES: Denies visual changes, redness, or discharge. ENT: Reports rhinorrhea, congestion, sinus pain, no otalgia and no sore throat. CARDIOVASCULAR: Denies chest pain, palpitations, or edema. RESPIRATORY: Reports cough.? Denies dyspnea. GASTROINTESTINAL: Denies abdominal pain, nausea, vomiting, diarrhea SKIN: Denies rash or itching. MUSCULOSKELETAL: Denies myalgia. NEUROLOGIC: reports frontal headache.prior CVA with some right sided weakness.seizure disorder All systems reviewed & are unremarkable except as noted in HPI and below [facility] [place] Past Medical History Medical History Hypothyroidism Spinal cord stimulator status CAD (coronary artery disease) Seizures CVA (cerebral vascular accident) Acute hypoxic respiratory failure GERD (gastroesophageal reflux disease) HTN (hypertension) Chronic pain Depression Anxiety Surgical History Surgical History History of tonsillectomy and adenoidectomy Hx of appendectomy H/O Spinal surgery History of hysterectomy Social History Social History Social History: Patient has occasional alcohol use, daily marijuana use and has access to gabapentin and norco at home Smoking status: Former smoker Tobacco type: cigarettes and e-cigarettes/vaping Drinks per week: 1 Substance use type: marijuana Other substance usage details: medical marijuana Lack of Transportation: No Lack of Food: Sometimes True Current Housing: I Have Housing Concerned About Future Housing: No Difficulty Paying Gas/Electric Bills: No Difficulty Paying for Meds: No Currently Unemployed: No Education: Associate Degree Difficulty w/ Childcare or Family Care: No Spiritual care concerns: No Comments At time of signature, agree with nursing past medical, surgical, social and family history. There is no relevant family history pertinent to the presenting complaint Exam Narrative: GENERAL: Ill-appearing,chronic ill appearing, well-nourished, and in no acute distress. HEAD: Normocephalic EYES: PERRLA, conjunctivae clear ENT: Nares clear, turbinates edematous and erythematous, clear discharge, sinus pressure and frontal headaches. Mucous membranes moist.sinus pressure, frontal headache. TM pearly delvalle with dull light reflex bilaterally; no tragal tenderness. Oropharynx erythematous without lesions. Tonsils not present and throat without exudate, no drooling, no hoarseness, no trismus, uvula midline.post nasal drainage. NECK: Supple. No lymphadenopathy CHEST: Clear to auscultation, breath sounds equal. No wheezing, rhonchi, rales, or stridor. No respiratory distress, speaks in full sentences.occasional cough noted,SAO2 98% on room air HEART: Regular rate and rhythm. No murmur heard. SKIN: Warm, dry, no rash. NEURO: Alert and oriented x3. PSYCH: Normal mood and affect Course Course Level of Care: Express Care Visit Vital Signs Vital signs: Vital Signs Temperature 36.8 C 02/22/25 12:16 Pulse Rate 70 02/22/25 12:16 Respiratory Rate 20 02/22/25 12:16 Blood Pressure 129/78 02/22/25 12:16 Pulse Oximetry 98 02/22/25 12:16 Oxygen Delivery Room Air 02/22/25 12:16 Temperature 36.8 C 02/22/25 12:16 Pulse Rate 70 02/22/25 12:16 Respiratory Rate 20 02/22/25 12:16 Blood Pressure 129/78 02/22/25 12:16 Pulse Oximetry 98 02/22/25 12:16 Oxygen Delivery Room Air 02/22/25 12:16 reviewed MDM MDM Narrative Medical decision making narrative: Patient reports illness for 3 week duration with sinus congestion drainage sinus pressure and frontal headaches with some cough. Patient prescribed oral antibiotic of Augmentin and steroids for cough. Patient is appropriate for outpatient treatment with anticipatory guidance and reasons to seek care in ED reviewed with understanding voiced. Differential Diagnosis Differential Diagnosis: Differential diagnostic considerations for upper respiratory infection include upper respiratory infection, croup, otitis media, sinusitis, viral infection, bronchitis, influenza, pharyngitis, strep, uvulitis.? Critical Care Time Critical Care Time Critical Care Time: No Discharge Plan Discharge Clinical Impression: Sinusitis Qualifiers: Sinusitis location: pansinusitis Chronicity: acute Recurrence: not specified as recurrent Qualified Code(s): J01.40 - Acute pansinusitis, unspecified Cough Qualifiers: Cough type: subacute Qualified Code(s): R05.2 - Subacute cough Patient Disposition: Home Condition: Stable Instructions: Antibiotic Form, Sinusitis (ED) Additional Instructions: Increase fluids especially juices and water Bvja-kwd-jrroyfp cough and cold medicine of your choice for your symptoms Tylenol or ibuprofen for any fever pain Zyrtec Claritin or Valentine daily Steroids as directed--take with food heat to the face 20-30 minutes 4-6 times a day for pain Salt water gargles, throat lozenges or throat sprays as desired Antibiotic as directed--finished the medication If your symptoms persist, change or worsen significantly before you can contact your personal physician then please, without delay, go to the emergency department for further evaluation. Follow-up with PCP in 7-10 days or sooner if needed Follow up with PCP soon in regards to your blood pressure which is elevated above threshold for referral. Blood pressure above 120/80 may indicate pre- hypertension.129/78 Patient Language: Amharic Prescriptions: New amoxicillin-pot clavulanate 875-125 mg tablet 1 tablet PO Q12H Qty: 20 0RF Rx Instructions: take with food, recommend eating activia yogurt or taking a probiotic while on this medication prednisone 20 mg tablet 40 mg PO DAILY 5 Days Qty: 10 0RF Rx Instructions: take in the morning with food No Action atorvastatin 40 mg Tablet 40 mg PO HS Qty: 30 0RF levetiracetam [Keppra] 500 mg Tablet 500 mg PO BID Qty: 60 0RF clopidogrel 75 mg Tablet 75 mg PO DAILY Qty: 30 0RF levothyroxine [Synthroid] 100 mcg Tablet 100 mcg PO DAILY@0630 Qty: 30 0RF hydroxyzine HCl 25 mg Tablet 50 mg PO Q6H PRN (Reason: Anxiety) Qty: 30 0RF fluticasone propionate 50 mcg/actuation [place],Suspension 1 spray intranasal BID Qty: 16 0RF oxymetazoline [Nasal Decongestant (oxymetazl)] 0.05 % [place],Non-Aerosol 1 spray intranasal BID Qty: 15 0RF quetiapine [Seroquel] 100 mg Tablet 100 mg PO BID Qty: 60 0RF aspirin [Children's Aspirin] 81 mg Tablet,Chewable 81 mg PO DAILY@0800 Qty: 30 0RF cetirizine 10 mg Tablet 10 mg BYMOUTH DAILY Qty: 30 0RF polyethylene glycol 3350 [Miralax] 17 gram Powder In Packet 17 g PO DAILY PRN (Reason: constipation) Qty: 30 0RF famotidine 20 mg Tablet 20 mg PO DAILY Qty: 30 0RF trazodone 50 mg Tablet 50 mg PO HS Qty: 30 0RF lorazepam 0.5 mg Tablet 1 mg PO Q8H Qty: 21 0RF Rx Instructions: 21 tablets Follow-up/Referrals: Cari,Homer Ely MD [Primary Care Provider] Time of Disposition: 12:55 Quality [place] Coma Scale Eyes: Open Verbal: Oriented and Alert Motor: Follows Commands [place] Coma Total Score: 15
== END 2025-02-22 13:00 | disposition home or self-care (01) ==
PROVIDERS: Emergency Provider Registered Nurse; PCP Internal Medicine
DX: J01.40 Acute pansinusitis, unspecified (principal); R05.2 Subacute cough; F12.90 Cannabis use, unspecified, uncomplicated; I25.10 Atherosclerotic heart disease of native coronary artery without angina pectoris; I10 Essential (primary) hypertension; E03.9 Hypothyroidism, unspecified; G40.909 Epilepsy, unspecified, not intractable, without status epilepticus; Z86.73 Personal history of transient ischemic attack (TIA), and cerebral infarction without residual deficits; Z96.82 Presence of neurostimulator; F41.9 Anxiety disorder, unspecified; F32.A Depression, unspecified; Z87.891 Personal history of nicotine dependence; Z79.82 Long term (current) use of aspirin
CPT/HCPCS: 99213; G0463